=== PATIENT | male | born 1965 | race American Indian/Alaskan Native ===

== ENCOUNTER → 2016-07-12 | Emergency (ER) | payer MEDICARE ==
[2016-07-13 00:43] VITALS: BP 100/62
[2016-07-13 11:00] LABS: Urine Drugs of Abuse Note Disclamer
[2016-07-13 11:12] LABS: Bilirubin,Urine NEG (Negative); Blood,Urine MOD (Negative); Ketones,Urine NEG (Negative); Leukocyte Esterase,Urine NEG (Negative); Mucus,Urine FEW /HPF; Nitrite,Urine NEG (Negative); WBC,Urine < 1.0 /HPF (0.0-6.0)
== END ==
LOC: ED 22:44 → EEVIPCON 22:44 → ED 07-13 01:05
DX: R07.9 Chest pain, unspecified (principal); R10.9 Unspecified abdominal pain; Z53.21 Procedure and treatment not carried out due to patient leaving prior to being seen by health care provider
CPT/HCPCS: 80307; 81001; 93005; 93010

== ENCOUNTER 2016-07-13 08:05 | Emergency (ER) | payer MEDICARE ==
[2016-07-13 08:19] VITALS: BP 177/98
[2016-07-13 09:08] LABS: Anion Gap 15 mmol/L; BUN/Creatinine Ratio 6.66; Blood Urea Nitrogen 6 mg/dL (9-20); Calcium 8.6 mg/dL (8.4-10.2); Carbon Dioxide 25 mmol/L (22-30); Chloride 93.2 mmol/L (98-107); Glucose 98 mg/dL (75-100); Potassium 3.6 mmol/L (3.6-5.0); Sodium 130 mmol/L (137-145)
[2016-07-13 09:12] LABS: Basophils % (Auto) 0.8 % (0.0-1.8); Eosinophils % (Auto) 1.1 % (0.0-4.3); Hematocrit 34.9 % (35.5-45.6); Hemoglobin 11.2 gm/dl (11.8-15.2); Mean Corpuscular HGB Conc 32 % (32-34); Mean Corpuscular Volume 78 fl (84-94); Red Blood Count 4.47 M/mm3 (3.65-5.03); Red Cell Distribution Width 17.3 % (13.2-15.2); White Blood Count 4.9 K/mm3 (4.5-11.0)
[2016-07-13 09:16] LABS: Mean Corpuscular Hemoglobin 25 pg (28-32)
[2016-07-13 09:17] LABS: Platelet Count 45 K/mm3 (140-440)
== END 2016-07-13 08:36 | disposition left against medical advice (07) ==
LOC: ED 08:05
DX: F10.129 Alcohol abuse with intoxication, unspecified (principal); Z53.21 Procedure and treatment not carried out due to patient leaving prior to being seen by health care provider
CPT/HCPCS: 36415; 80048; 85025; G0480; 80320

== ENCOUNTER 2016-07-14 04:45 | Emergency (ER) | payer MEDICARE ==
[2016-07-14 05:52] LABS: Basophils % (Auto) 1.3 % (0.0-1.8); Eosinophils % (Auto) 2.3 % (0.0-4.3); Hematocrit 32.6 % (35.5-45.6); Hemoglobin 10.6 gm/dl (11.8-15.2); Mean Corpuscular HGB Conc 33 % (32-34); Mean Corpuscular Volume 78 fl (84-94); Red Blood Count 4.21 M/mm3 (3.65-5.03); Red Cell Distribution Width 17.1 % (13.2-15.2); White Blood Count 3.9 K/mm3 (4.5-11.0)
[2016-07-14 05:59] LABS: Mean Corpuscular Hemoglobin 25 pg (28-32); Platelet Count 57 K/mm3 (140-440)
[2016-07-14 06:12] LABS: Anion Gap 17 mmol/L; BUN/Creatinine Ratio 7.77; Blood Urea Nitrogen 7 mg/dL (9-20); Calcium 8.1 mg/dL (8.4-10.2); Carbon Dioxide 22 mmol/L (22-30); Chloride 100.6 mmol/L (98-107); Glucose 103 mg/dL (75-100); Lipase 143 units/L (13-60); Magnesium 1.7 mg/dL (1.7-2.3); Potassium 3.7 mmol/L (3.6-5.0); Sodium 136 mmol/L (137-145)
[2016-07-14 07:06] LABS: Urine Drugs of Abuse Note Disclamer
[2016-07-14 07:26] LABS: Bilirubin,Urine NEG (Negative); Blood,Urine MOD (Negative); Ketones,Urine NEG (Negative); Leukocyte Esterase,Urine NEG (Negative); Mucus,Urine FEW /HPF; Nitrite,Urine NEG (Negative); Protein,Urine <15 mg/dL mg/dL (Negative); Urobilinogen,Urine < 2.0 mg/dL (<2.0); WBC,Urine < 1.0 /HPF (0.0-6.0)
[2016-07-14 08:51] VITALS: BP 155/103
--- NOTE | 2016-07-14 19:15 | ED Elopement Review ---
ED Pt Elopement review - Results review Lab results: Laboratory Tests 07/14/16 07/14/16 07/14/16 05:44 05:44 05:44 WBC 3.9 L RBC 4.21 Hgb 10.6 L Hct 32.6 L MCV 78 L MCH 25 L MCHC 33 RDW 17.1 H Plt Count 57 L Lymph % (Auto) 48.3 H [place] % (Auto) 10.7 H Eos % (Auto) 2.3 Baso % (Auto) 1.3 Lymph # 1.9 [place] # 0.4 Eos # 0.1 Baso # 0.1 Seg Neutrophils % 37.4 L Seg Neutrophils # 1.4 L Sodium 136 L Potassium 3.7 Chloride 100.6 Carbon Dioxide 22 Anion Gap 17 BUN 7 L Creatinine 0.9 Estimated GFR > 60 BUN/Creatinine Ratio 7.77 Glucose 103 H Calcium 8.1 L Magnesium 1.7 Lipase 143 H Urine Color Urine Turbidity Urine pH Ur Specific [place] Urine Protein Urine Glucose (UA) Urine Ketones Urine Blood Urine Nitrite Urine Bilirubin Urine Urobilinogen Ur Leukocyte Esterase Urine WBC (Auto) Urine RBC (Auto) U Epithel Cells (Auto) Hyaline Casts Urine Mucus Urine Opiates Screen Urine Methadone Screen Ur Barbiturates Screen Ur Phencyclidine Scrn Ur Amphetamines Screen U Benzodiazepines Scrn Urine Cocaine Screen U Marijuana (THC) Screen Drugs of Abuse Note Plasma/Serum Alcohol 0.23 H 07/14/16 07/14/16 06:28 06:28 WBC RBC Hgb Hct MCV MCH MCHC RDW Plt Count Lymph % (Auto) [place] % (Auto) Eos % (Auto) Baso % (Auto) Lymph # [place] # Eos # Baso # Seg Neutrophils % Seg Neutrophils # Sodium Potassium Chloride Carbon Dioxide Anion Gap BUN Creatinine Estimated GFR BUN/Creatinine Ratio Glucose Calcium Magnesium Lipase Urine Color Yellow Urine Turbidity Clear Urine pH 5.0 Ur Specific [place] 1.011 Urine Protein <15 mg/dl Urine Glucose (UA) Neg Urine Ketones Neg Urine Blood Mod Urine Nitrite Neg Urine Bilirubin Neg Urine Urobilinogen < 2.0 Ur Leukocyte Esterase Neg Urine WBC (Auto) < 1.0 Urine RBC (Auto) 1.0 U Epithel Cells (Auto) < 1.0 Hyaline Casts 1 Urine Mucus Few Urine Opiates Screen Presumptive negative Urine Methadone Screen Presumptive negative Ur Barbiturates Screen Presumptive negative Ur Phencyclidine Scrn Presumptive negative Ur Amphetamines Screen Presumptive negative U Benzodiazepines Scrn Presumptive negative Urine Cocaine Screen Presumptive positive U Marijuana (THC) Screen Presumptive negative Drugs of Abuse Note Disclamer Plasma/Serum Alcohol - Call Back decision Pt Call Back Decision: Pt to F/U with PMD (patient has pancreatitis)
== END 2016-07-14 23:26 | disposition left against medical advice (07) ==
LOC: ED 04:45
DX: F10.129 Alcohol abuse with intoxication, unspecified (principal); Z53.21 Procedure and treatment not carried out due to patient leaving prior to being seen by health care provider
CPT/HCPCS: 36415; 80048; 80307; 81001; 83690; 83735; 85025; G0480; 80320

== ENCOUNTER 2016-07-14 14:23 | Emergency (ER) | payer MEDICARE | END 2016-07-14 14:24 | disposition left against medical advice (07) | LOC: ED 14:23 | DX: F29 Unspecified psychosis not due to a substance or known physiological condition (principal); Z53.21 Procedure and treatment not carried out due to patient leaving prior to being seen by health care provider ==

== ENCOUNTER 2016-07-24 05:05 | Emergency (ER) | payer MEDICARE ==
[2016-07-24 05:22] VITALS: BP 134/68
[2016-07-24 05:37] LABS: Basophils % (Auto) 1.3 % (0.0-1.8); Eosinophils % (Auto) 1.7 % (0.0-4.3); Hematocrit 37.6 % (35.5-45.6); Hemoglobin 12.1 gm/dl (11.8-15.2); Mean Corpuscular HGB Conc 32 % (32-34); Mean Corpuscular Hemoglobin 25 pg (28-32); Mean Corpuscular Volume 78 fl (84-94); Platelet Count 68 K/mm3 (140-440); Red Blood Count 4.79 M/mm3 (3.65-5.03); Red Cell Distribution Width 17.9 % (13.2-15.2); White Blood Count 3.7 K/mm3 (4.5-11.0)
[2016-07-24 05:46] LABS: INR 0.96 (0.87-1.13)
[2016-07-24 05:47] LABS: Partial Thromboplastin Time 28.6 Sec. (24.2-36.6)
[2016-07-24 06:03] LABS: Alanine Aminotransferase 71 units/L (7-56); Albumin/Globulin Ratio 0.5 %; Alkaline Phosphatase 363 units/L (35-129); Anion Gap 18 mmol/L; BUN/Creatinine Ratio 4.44; Bilirubin,Total 0.6 mg/dL (0.1-1.2); Blood Urea Nitrogen 4 mg/dL (9-20); Calcium 8.2 mg/dL (8.4-10.2); Carbon Dioxide 22 mmol/L (22-30); Chloride 102.7 mmol/L (98-107); Glucose 88 mg/dL (75-100); Lipase 106 units/L (13-60); Sodium 139 mmol/L (137-145)
--- NOTE | 2016-07-27 01:28 | ED Elopement Review ---
ED Pt Elopement review - Results review Lab results: Laboratory Tests 07/24/16 07/24/16 07/24/16 05:26 05:26 05:26 WBC 3.7 L RBC 4.79 Hgb 12.1 Hct 37.6 MCV 78 L MCH 25 L MCHC 32 RDW 17.9 H Plt Count 68 L Lymph % (Auto) 27.8 [place] % (Auto) 7.8 H Eos % (Auto) 1.7 Baso % (Auto) 1.3 Lymph # 1.0 L [place] # 0.3 Eos # 0.1 Baso # 0.0 Seg Neutrophils % 61.4 Seg Neutrophils # 2.2 PT 12.7 INR 0.96 APTT 28.6 Sodium Potassium Chloride Carbon Dioxide Anion Gap BUN Creatinine Estimated GFR BUN/Creatinine Ratio Glucose Calcium Total Bilirubin AST ALT Alkaline Phosphatase Troponin T < 0.010 Total Protein Albumin Albumin/Globulin Ratio Lipase Plasma/Serum Alcohol 07/24/16 07/24/16 05:26 05:26 WBC RBC Hgb Hct MCV MCH MCHC RDW Plt Count Lymph % (Auto) [place] % (Auto) Eos % (Auto) Baso % (Auto) Lymph # [place] # Eos # Baso # Seg Neutrophils % Seg Neutrophils # PT INR APTT Sodium 139 Potassium 4.0 Chloride 102.7 Carbon Dioxide 22 Anion Gap 18 BUN 4 L Creatinine 0.9 Estimated GFR > 60 BUN/Creatinine Ratio 4.44 Glucose 88 Calcium 8.2 L Total Bilirubin 0.6 AST 129 H ALT 71 H Alkaline Phosphatase 363 H Troponin T Total Protein 9.0 H Albumin 3.0 L Albumin/Globulin Ratio 0.5 Lipase 106 H Plasma/Serum Alcohol 0.27 H - Call Back decision Pt Call Back Decision: Pt to F/U with PMD (chest pain will likely require further evaluation)
== END 2016-07-24 05:30 | disposition left against medical advice (07) ==
LOC: ED 05:05
DX: R07.9 Chest pain, unspecified (principal); F17.200 Nicotine dependence, unspecified, uncomplicated; F12.90 Cannabis use, unspecified, uncomplicated; Z88.2 Allergy status to sulfonamides; Z88.8 Allergy status to other drugs, medicaments and biological substances; Z53.21 Procedure and treatment not carried out due to patient leaving prior to being seen by health care provider
CPT/HCPCS: 36415; 80053; 83690; 84484; 85025; 85610; 85730; 93005; 93010; G0480; 80320

== ENCOUNTER 2016-08-10 13:27 | Inpatient (IN) | payer MEDICARE ==
[2016-08-10 14:34] LABS: Anion Gap 21 mmol/L; BUN/Creatinine Ratio 7.77; Blood Urea Nitrogen 7 mg/dL (9-20); Calcium 8.9 mg/dL (8.4-10.2); Carbon Dioxide 19 mmol/L (22-30); Chloride 97.8 mmol/L (98-107); Glucose 87 mg/dL (75-100); Potassium 4.5 mmol/L (3.6-5.0); Sodium 133 mmol/L (137-145)
[2016-08-10 14:39] LABS: Basophils % (Auto) 0.6 % (0.0-1.8); Hematocrit 37.3 % (35.5-45.6); Hemoglobin 12.1 gm/dl (11.8-15.2); Mean Corpuscular HGB Conc 32 % (32-34); Mean Corpuscular Volume 79 fl (84-94); Red Blood Count 4.74 M/mm3 (3.65-5.03); Red Cell Distribution Width 17.5 % (13.2-15.2); White Blood Count 6.6 K/mm3 (4.5-11.0)
[2016-08-10 14:46] LABS: Mean Corpuscular Hemoglobin 26 pg (28-32); Platelet Count 51 K/mm3 (140-440)
[2016-08-10] MEDS ORDERED: ATIVAN IV ONE (14:55)
--- NOTE | 2016-08-10 15:01 | Emergency Department Report ---
HPI - General Chief Complaint: Nausea/Vomiting/Diarrhea Time Seen by Provider: 08/10/16 14:40 - HPI HPI: Room 24 The patient is a 50-year-old male presenting with a chief complaint of desire for "detox from alcohol." Patient states she came to the hospital because he wants detox from alcohol. Patient was diagnosed with a past 2 weeks his had nausea vomiting diarrhea. Patient admits to epigastric abdominal pain which began this morning. Patient states she consumes approximately one sixpack of beer daily and his last consumption occurred this morning. Location: [see above] Duration: 2 weeks Quality: Pain Severity: Moderate Modifying factors: [see above] Context: [see above] Mode of transportation: [not driving] ED Past Medical Hx - Past Medical History Hx Hypertension: Yes Hx HIV: Yes - Surgical History Additional Surgical History: tracheostomy- secondary to "throat infection/couldn 't breathe" - Family History Family history: no significant - Social History Smoking Status: Current Every Day Smoker (one pack per day) Substance Use Type: None (denies illicit drug use), Alcohol (sixpack of beer daily) - Medications Home Medications: Home Medications Medication Instructions Recorded Confirmed Last Taken Type Emtricitabin/Tenofovir [TRUVADA 1 tab PO QDAY 10/01/13 06/05/15 3 Days Ago History 200-300 mg] Lisinopril [Zestril TAB] 20 mg PO QDAY 10/01/13 06/05/15 3 Weeks Ago History Lopinavir/Ritonavir [Kaletra 1 each PO BID 10/01/13 06/05/15 3 Weeks Ago History 200-50 mg] Mirtazapine [Remeron] 45 mg PO QHS 10/01/13 06/05/15 3 Weeks Ago History Quetiapine Fumarate [SEROquel XR] 400 mg PO QDAY 10/01/13 06/05/15 3 Weeks Ago History Aspirin [Aspirin TAB] 325 mg PO QDAY #30 tablet 10/07/13 06/05/15 3 Weeks Ago Rx Clopidogrel [Plavix] 75 mg PO QDAY #30 tablet 10/07/13 06/05/15 3 Weeks Ago Rx Metoprolol [Lopressor TAB] 12.5 mg PO BID #60 tablet 10/07/13 06/05/15 3 Weeks Ago Rx Nitroglycerin [Nitrostat] 0.4 mg SL .Q5MIN PRN #90 tab 10/07/13 06/05/15 3 Weeks Ago Rx Pravastatin Sodium [Pravastatin] 10 mg PO QHS #30 tablet 10/07/13 06/05/15 3 Weeks Ago Rx HYDROcodone/APAP 10-325 [[place] 1 each PO Q6HR PRN #16 tablet 04/17/14 06/05/15 3 Days Ago Rx 10-325 mg TAB] Ondansetron [Zofran Odt] 4 mg SL Q6H PRN #8 tab.rapdis 04/17/14 06/05/15 3 Weeks Ago Rx ED Review of Systems ROS: Stated complaint: DEHYDRATION Other details as noted in HPI Comment: All other systems reviewed and negative Constitutional: denies: chills, fever Eyes: denies: eye pain, eye discharge, vision change ENT: denies: ear pain, throat pain Respiratory: denies: cough, shortness of breath, wheezing Cardiovascular: denies: palpitations Endocrine: no symptoms reported Gastrointestinal: abdominal pain, nausea, vomiting, diarrhea Genitourinary: denies: urgency, dysuria Musculoskeletal: denies: back pain, joint swelling, arthralgia Skin: denies: rash, lesions Neurological: denies: headache, weakness, paresthesias Psychiatric: denies: anxiety, depression Hematological/Lymphatic: denies: easy bleeding, easy bruising Physical Exam - Physical Exam Vital Signs: Vital Signs 08/10/16 13:47 Temperature 99.1 F Pulse Rate 118 H Respiratory 20 Rate Blood Pressure 149/85 O2 Sat by Pulse 99 Oximetry Physical Exam: GENERAL: The patient is well-developed male lying on stretcher not appearing to be in acute distress HEENT: Normocephalic. Atraumatic. Extraocular motions are intact. Patient has moist mucous membranes. NECK: Supple. No meningitic signs are noted. Trachea midline CHEST/LUNGS: Clear to auscultation. There is no respiratory distress noted. HEART/CARDIOVASCULAR: Regular. There is tachycardia. There is no gallop rub or murmur. ABDOMEN: Abdomen is soft, with mild epigastric discomfort to palpation. Patient has normal bowel sounds. There is no abdominal distention. SKIN: There is no rash. There is no edema. There is no diaphoresis. NEURO: The patient is awake, alert, and oriented. The patient is cooperative. The patient has no focal neurologic deficits. The patient has normal speech. Cranial nerves II through XII grossly intact, no drift. Mild tremulousness noted throughout exam MUSCULOSKELETAL: There is no evidence of acute injury. ED Course Vital Signs 08/10/16 13:47 Temperature 99.1 F Pulse Rate 118 H Respiratory 20 Rate Blood Pressure 149/85 O2 Sat by Pulse 99 Oximetry - Reevaluation(s) Reevaluation #1: 08/10/16 16:23 Patient still exhibits tremulousness. Patient tachycardic at approximately 124 bpm. Will initiate CIWA protocol and admit the patient to the hospitalist ED Medical Decision Making - Lab Data Result diagrams: 08/10/16 14:03 08/10/16 14:03 Laboratory Tests 08/10/16 08/10/16 08/10/16 13:56 14:03 14:03 WBC 6.6 RBC 4.74 Hgb 12.1 Hct 37.3 MCV 79 L MCH 26 L MCHC 32 RDW 17.5 H Plt Count 51 L Lymph % (Auto) 9.4 L [place] % (Auto) 6.0 Eos % (Auto) 0.0 Baso % (Auto) 0.6 Lymph # 0.6 L [place] # 0.4 Eos # 0.0 Baso # 0.0 Seg Neutrophils % 84.0 H Seg Neutrophils # 5.6 PT INR APTT Sodium 133 L Potassium 4.5 Chloride 97.8 L Carbon Dioxide 19 L Anion Gap 21 BUN 7 L Creatinine 0.9 Estimated GFR > 60 BUN/Creatinine Ratio 7.77 Glucose 87 POC Glucose 74 Calcium 8.9 Total Bilirubin Direct Bilirubin Indirect Bilirubin AST ALT Alkaline Phosphatase Ammonia Total Creatine Kinase CK-MB (CK-2) CK-MB (CK-2) Rel Index Troponin T Total Protein Albumin Albumin/Globulin Ratio Amylase Lipase Plasma/Serum Alcohol 08/10/16 08/10/16 08/10/16 15:08 15:08 15:08 WBC RBC Hgb Hct MCV MCH MCHC RDW Plt Count Lymph % (Auto) [place] % (Auto) Eos % (Auto) Baso % (Auto) Lymph # [place] # Eos # Baso # Seg Neutrophils % Seg Neutrophils # PT 13.3 INR 1.02 APTT 29.8 Sodium Potassium Chloride Carbon Dioxide Anion Gap BUN Creatinine Estimated GFR BUN/Creatinine Ratio Glucose POC Glucose Calcium Total Bilirubin 1.1 Direct Bilirubin 0.4 H Indirect Bilirubin 0.7 AST 156 H ALT 95 H Alkaline Phosphatase 418 H Ammonia Total Creatine Kinase 134 CK-MB (CK-2) 1.8 CK-MB (CK-2) Rel Index 1.3 Troponin T < 0.010 Total Protein 9.2 H Albumin 3.3 L Albumin/Globulin Ratio 0.6 Amylase 234 H Lipase 57 Plasma/Serum Alcohol 08/10/16 08/10/16 15:08 15:08 WBC RBC Hgb Hct MCV MCH MCHC RDW Plt Count Lymph % (Auto) [place] % (Auto) Eos % (Auto) Baso % (Auto) Lymph # [place] # Eos # Baso # Seg Neutrophils % Seg Neutrophils # PT INR APTT Sodium Potassium Chloride Carbon Dioxide Anion Gap BUN Creatinine Estimated GFR BUN/Creatinine Ratio Glucose POC Glucose Calcium Total Bilirubin Direct Bilirubin Indirect Bilirubin AST ALT Alkaline Phosphatase Ammonia 59.0 Total Creatine Kinase CK-MB (CK-2) CK-MB (CK-2) Rel Index Troponin T Total Protein Albumin Albumin/Globulin Ratio Amylase Lipase Plasma/Serum Alcohol 0.04 - Differential Diagnosis alcohol withdrawal, pancreatitis, cryptosporidium, gastroenteritis Critical care attestation.: If time is entered above; I have spent that time in minutes in the direct care of this critically ill patient, excluding procedure time. ED Disposition Clinical Impression: Alcohol abuse, Alcohol withdrawal, Alcoholic hepatitis, Thrombocytopenia Disposition: OP ADMITTED IP TO THIS HOSP Is pt being admited?: Yes Does the pt Need Aspirin: Yes Condition: Fair Referrals: PRIMARY CARE, [Primary Care Provider] - 3-5 Days Time of Disposition: 16:26
[2016-08-10 15:42] LABS: INR 1.02 (0.87-1.13); Partial Thromboplastin Time 29.8 Sec. (24.2-36.6)
[2016-08-10 15:53] LABS: Albumin 3.3 g/dL (3.9-5); Albumin/Globulin Ratio 0.6 %; Bilirubin,Direct 0.4 mg/dL (0-0.2); Bilirubin,Indirect 0.7 mg/dL; Bilirubin,Total 1.1 mg/dL (0.1-1.2); Total Protein 9.2 g/dL (6.3-8.2)
[2016-08-10] MEDS ORDERED: VITAMIN B-1 100 MG, FOLVITE 1 MG, INFUVITE 10 ML, MAGNESIUM SULFATE 2 GM in NACL 0.9% 1... IV ONE (15:53)
[2016-08-10 15:59] LABS: Creatine Kinase MB 1.8 ng/mL (0.0-4.0)
[2016-08-10 16:00] LABS: Creatine Kinase 134 units/L (55-170); Lipase 57 units/L (13-60)
--- NOTE | 2016-08-10 16:40 | History and Physical Report ---
History of Present Illness Chief complaint: I feel shaky History of present illness: 50 YO Male with ETOH Abuse, HTN, HIV, Nicotine Dependence presents to ED for evaluation. Pt states that he wants to "detox from alcohol." Patient states he cant stop shaking. Pt states that he normally consumes a six pack of beer daily , and his last drink was this morning. Pt denies audio/visual hallucinations, fever, chills, CP, Palpitations, NVD, or recent ill contacts. Past History Past Medical History: HIV/AIDS, hypertension Past Surgical History: Other (tracheostomy) Social history: single, smoking Family history: no significant family history, other (reviewed) Medications and Allergies Allergies Allergy/AdvReac Type Severity Reaction Status Date / Time sulfamethoxazole AdvReac Swelling Verified 07/13/16 08:19 [From Bactrim] trimethoprim [From Bactrim] AdvReac Swelling Verified 07/13/16 08:19 Home Medications Medication Instructions Recorded Confirmed Last Taken Type Emtricitabin/Tenofovir [TRUVADA 1 tab PO QDAY 10/01/13 06/05/15 3 Days Ago History 200-300 mg] Lisinopril [Zestril TAB] 20 mg PO QDAY 10/01/13 06/05/15 3 Weeks Ago History Lopinavir/Ritonavir [[place] 1 each PO BID 10/01/13 06/05/15 3 Weeks Ago History 200-50 mg] Mirtazapine [Remeron] 45 mg PO QHS 10/01/13 06/05/15 3 Weeks Ago History Quetiapine Fumarate [SEROquel XR] 400 mg PO QDAY 10/01/13 06/05/15 3 Weeks Ago History Aspirin [Aspirin TAB] 325 mg PO QDAY #30 tablet 10/07/13 06/05/15 3 Weeks Ago Rx Clopidogrel [Plavix] 75 mg PO QDAY #30 tablet 10/07/13 06/05/15 3 Weeks Ago Rx Metoprolol [Lopressor TAB] 12.5 mg PO BID #60 tablet 10/07/13 06/05/15 3 Weeks Ago Rx Nitroglycerin [Nitrostat] 0.4 mg SL .Q5MIN PRN #90 tab 10/07/13 06/05/15 3 Weeks Ago Rx Pravastatin Sodium [Pravastatin] 10 mg PO QHS #30 tablet 10/07/13 06/05/15 3 Weeks Ago Rx HYDROcodone/APAP 10-325 [[place] 1 each PO Q6HR PRN #16 tablet 04/17/14 06/05/15 3 Days Ago Rx 10-325 mg TAB] Ondansetron [Zofran Odt] 4 mg SL Q6H PRN #8 tab.rapdis 04/17/14 06/05/15 3 Weeks Ago Rx Active Meds: Active Medications Thiamine HCl 100 mg/ Folic Acid 1 mg/ Multivitamins/Minerals 10 ml/ Magnesium Sulfate 2 gm/ Sodium Chloride 1,015.2 mls @ 250 mls/hr IV ONCE.ED ONE Stop: 08/10/16 19:56 Last Admin: 08/10/16 15:42 Dose: 250 mls/hr Lorazepam (Ativan) 4 mg IV Q15MIN PRN PRN Reason: CIWA-Ar >25 Lorazepam (Ativan) 4 mg IV Q1HR PRN PRN Reason: CIWA-Ar 16-25 Lorazepam (Ativan) 2 mg IV Q1HR PRN PRN Reason: CIWA-Ar 8-15 Review of Systems All systems: negative Constitutional: other (shaky feeling) Exam - Constitutional Vitals: Temp Pulse Resp BP Pulse Ox 99.1 F 105 H 16 174/111 95 08/10/16 13:47 08/10/16 16:34 08/10/16 16:34 08/10/16 16:34 08/10/16 16:34 General appearance: Present: no acute distress, well-nourished - EENT Eyes: Present: PERRL ENT: hearing intact, clear oral mucosa - Neck Neck: Present: supple, normal ROM - Respiratory Respiratory effort: normal Respiratory: bilateral: CTA - Cardiovascular Heart Sounds: Present: S1 & S2. Absent: rub, click - Extremities Extremities: pulses symmetrical, No edema Peripheral Pulses: within normal limits - Abdominal General gastrointestinal: Present: soft, non-tender, non-distended, normal bowel sounds Male genitourinary: Present: normal - Integumentary Integumentary: Present: clear, warm, dry - Musculoskeletal Musculoskeletal: generalized weakness - Psychiatric Psychiatric: appropriate mood/affect, intact judgment & insight, agitated - Neurologic Neurologic: CNII-XII intact, moves all extremities Results - Labs CBC & Chem 7: 08/10/16 14:03 08/10/16 14:03 Labs: Abnormal lab results 08/10/16 08/10/16 08/10/16 Range/Units 14:03 14:03 15:08 MCV 79 L (84-94) fl MCH 26 L (28-32) pg RDW 17.5 H (13.2-15.2) % Plt Count 51 L (140-440) K/mm3 Lymph % (Auto) 9.4 L (13.4-35.0) % Lymph # 0.6 L (1.2-5.4) K/mm3 Seg Neutrophils % 84.0 H (40.0-70.0) % Sodium 133 L (137-145) mmol/L Chloride 97.8 L (98-107) mmol/L Carbon Dioxide 19 L (22-30) mmol/L BUN 7 L (9-20) mg/dL Direct Bilirubin 0.4 H (0-0.2) mg/dL AST 156 H (5-40) units/L ALT 95 H (7-56) units/L Alkaline Phosphatase 418 H (35-129) units/L Total Protein 9.2 H (6.3-8.2) g/dL Albumin 3.3 L (3.9-5) g/dL Amylase 234 H (27-131) units/L Assessment and Plan - Patient Problems (1) Metabolic acidosis Current Visit: Yes Status: Acute (2) Alcohol withdrawal Current Visit: Yes Status: Acute Qualifiers: Complication of substance-induced condition: C (3) DVT prophylaxis Current Visit: No Status: Acute (4) HIV (human immunodeficiency virus infection) Current Visit: No Status: Chronic
[2016-08-10] MEDS ORDERED: ZOFRAN IV PRN (16:41)
[2016-08-10] MEDS ORDERED: DUONEB 0.5 MG-3 MG/3 ML SOLN IH PRN (16:41)
[2016-08-10] MEDS ORDERED: DULCOLAX PR PRN (16:41)
[2016-08-10] MEDS ORDERED: MILK OF MAGNESIA PO PRN (16:41)
[2016-08-10] MEDS ORDERED: TYLENOL PO PRN (16:41)
[2016-08-10] MEDS ORDERED: NITROSTAT SL PRN (16:45)
[2016-08-10] MEDS ORDERED: PROVENTIL IH PRN (16:53)
[2016-08-10] MEDS ORDERED: THERAGRAN Tab PO ONE ×2 (17:00→19:35)
[2016-08-10] MEDS ORDERED: VITAMIN B-1 PO ONE (18:00)
[2016-08-10] MEDS ORDERED: FOLVITE ONE (19:34)
[2016-08-10] MEDS ORDERED: VITAMIN B-1 ONE (19:35)
[2016-08-10] MEDS ORDERED: ATIVAN ONE (19:36)
[2016-08-10 19:47] LABS: Bilirubin,Urine NEG (Negative); Blood,Urine MOD (Negative); Ketones,Urine TR mg/dL (Negative); Leukocyte Esterase,Urine NEG (Negative); Nitrite,Urine NEG (Negative); Protein,Urine <15 mg/dL mg/dL (Negative); Urobilinogen,Urine < 2.0 mg/dL (<2.0)
[2016-08-10] MEDS: FOLVITE PO SCH (19:47)
[2016-08-10] MEDS: ATIVAN IV PRN ×3 (19:48→23:30)
[2016-08-10] MEDS: LOPRESSOR PO SCH (21:20)
[2016-08-10] MEDS: ZOCOR PO SCH (21:21)
[2016-08-10] MEDS: REMERON PO SCH (21:48)
[2016-08-10] MEDS: KALETRA PO SCH (21:48)
[2016-08-10] MEDS ORDERED: NON-FORMULARY (Mirtazapine [Remeron] 45 MG) PO SCH (22:00)
[2016-08-10] MEDS ORDERED: NON-FORMULARY (Pravastatin Sodium [Pravastatin] 10 MG) PO SCH (22:00)
[2016-08-11] MEDS: ATIVAN IV PRN ×5 (00:31→23:43)
[2016-08-11] MEDS ORDERED: EMTRIVA PO SCH (10:00)
[2016-08-11] MEDS ORDERED: NON-FORMULARY (Emtricitabin/Tenofovir [Truvada 200-300 Mg] 1 TAB) PO SCH (10:00)
[2016-08-11] MEDS ORDERED: NON-FORMULARY (Quetiapine Fumarate [Seroquel Xr] 400 MG) PO SCH (10:00)
[2016-08-11] MEDS: FOLVITE PO SCH ×2 (13:24→16:52)
[2016-08-11] MEDS: ASPIRIN PO SCH ×2 (13:24→14:05)
[2016-08-11] MEDS: KALETRA PO SCH ×2 (13:24→21:56)
[2016-08-11] MEDS: PLAVIX PO SCH ×2 (13:24→16:52)
[2016-08-11] MEDS: ZESTRIL PO SCH ×2 (13:25→14:01)
[2016-08-11] MEDS: EMTRIVA PO SCH ×2 (13:25→16:54)
[2016-08-11] MEDS: VIREAD PO SCH ×2 (13:25→16:54)
[2016-08-11] MEDS: LOPRESSOR PO SCH ×3 (13:26→21:54)
--- NOTE | 2016-08-11 13:39 | Progress Note ---
Assessment and Plan Assessment and plan: 50 YO Male with ETOH Abuse, HTN, HIV, Nicotine Dependence presents to ED for evaluation. Pt states that he wants to "detox from alcohol." He presented with etoh withdrawal 1. Alcohol withdrawal Continue serial protocol, continue IV fluids, continue thiamine and folate 2. Metabolic encephalopathy Continue restraints, continue supportive care, continue IV fluids 3. History of chronic HIV continue retrovirals History Interval history: Patient continues to be agitated and confused Hospitalist Physical - Physical exam Narrative exam: General: Confused and agitated HEENT: MMM, EOMI cardiac: S1-S2 heard lungs: clear to auscultation, abdomen: soft, nontender, nondistended bowel sounds positive extremities: no edema clubbing or cyanosis Skin: no rash or lesion Neuro: Moves all extremities, obese on commands, does not be most commands, confused and agitated - Constitutional Vitals: Temp Pulse Resp BP Pulse Ox 96.7 F L 98 H 20 150/97 100 08/11/16 08:00 08/11/16 08:00 08/11/16 08:00 08/11/16 08:00 08/11/16 10:00 General appearance: Present: no acute distress, well-nourished Results - Labs CBC & Chem 7: 08/10/16 14:03 08/11/16 14:41 Labs: Laboratory Last Values WBC 6.6 K/mm3 (4.5-11.0) 08/10/16 14:03 RBC 4.74 M/mm3 (3.65-5.03) 08/10/16 14:03 Hgb 12.1 gm/dl (11.8-15.2) 08/10/16 14:03 Hct 37.3 % (35.5-45.6) 08/10/16 14:03 MCV 79 fl (84-94) L 08/10/16 14:03 MCH 26 pg (28-32) L 08/10/16 14:03 MCHC 32 % (32-34) 08/10/16 14:03 RDW 17.5 % (13.2-15.2) H 08/10/16 14:03 Plt Count 51 K/mm3 (140-440) L 08/10/16 14:03 Lymph % (Auto) 9.4 % (13.4-35.0) L 08/10/16 14:03 [place] % (Auto) 6.0 % (0.0-7.3) 08/10/16 14:03 Eos % (Auto) 0.0 % (0.0-4.3) 08/10/16 14:03 Baso % (Auto) 0.6 % (0.0-1.8) 08/10/16 14:03 Lymph # 0.6 K/mm3 (1.2-5.4) L 08/10/16 14:03 [place] # 0.4 K/mm3 (0.0-0.8) 08/10/16 14:03 Eos # 0.0 K/mm3 (0.0-0.4) 08/10/16 14:03 Baso # 0.0 K/mm3 (0.0-0.1) 08/10/16 14:03 Seg Neutrophils % 84.0 % (40.0-70.0) H 08/10/16 14:03 Seg Neutrophils # 5.6 K/mm3 (1.8-7.7) 08/10/16 14:03 PT 13.3 Sec. (12.2-14.9) 08/10/16 15:08 INR 1.02 (0.87-1.13) 08/10/16 15:08 APTT 29.8 Sec. (24.2-36.6) 08/10/16 15:08 Sodium 133 mmol/L (137-145) L 08/10/16 14:03 Potassium 4.5 mmol/L (3.6-5.0) 08/10/16 14:03 Chloride 97.8 mmol/L (98-107) L 08/10/16 14:03 Carbon Dioxide 19 mmol/L (22-30) L 08/10/16 14:03 Anion Gap 21 mmol/L 08/10/16 14:03 BUN 7 mg/dL (9-20) L 08/10/16 14:03 Creatinine 0.9 mg/dL (0.8-1.5) 08/10/16 14:03 Estimated GFR > 60 ml/min 08/10/16 14:03 BUN/Creatinine Ratio 7.77 % 08/10/16 14:03 Glucose 87 mg/dL (75-100) 08/10/16 14:03 POC Glucose 74 (70-105) 08/10/16 13:56 Calcium 8.9 mg/dL (8.4-10.2) 08/10/16 14:03 Total Bilirubin 1.1 mg/dL (0.1-1.2) 08/10/16 15:08 Direct Bilirubin 0.4 mg/dL (0-0.2) H 08/10/16 15:08 Indirect Bilirubin 0.7 mg/dL 08/10/16 15:08 AST 156 units/L (5-40) H 08/10/16 15:08 ALT 95 units/L (7-56) H 08/10/16 15:08 Alkaline Phosphatase 418 units/L (35-129) H 08/10/16 15:08 Ammonia 59.0 umol/L (25-60) 08/10/16 15:08 Total Creatine Kinase 134 units/L (55-170) 08/10/16 15:08 CK-MB (CK-2) 1.8 ng/mL (0.0-4.0) 08/10/16 15:08 CK-MB (CK-2) Rel Index 1.3 (0-4) 08/10/16 15:08 Troponin T < 0.010 ng/mL (0.00-0.029) 08/10/16 15:08 Total Protein 9.2 g/dL (6.3-8.2) H 08/10/16 15:08 Albumin 3.3 g/dL (3.9-5) L 08/10/16 15:08 Albumin/Globulin Ratio 0.6 % 08/10/16 15:08 Amylase 234 units/L (27-131) H 08/10/16 15:08 Lipase 57 units/L (13-60) 08/10/16 15:08 Urine Color Yellow (Yellow) 08/10/16 19:15 Urine Turbidity Clear (Clear) 08/10/16 19:15 Urine pH 5.0 (5.0-7.0) 08/10/16 19:15 Ur Specific [place] 1.013 (1.003-1.030) 08/10/16 19:15 Urine Protein <15 mg/dl mg/dL (Negative) 08/10/16 19:15 Urine Glucose (UA) Neg mg/dL (Negative) 08/10/16 19:15 Urine Ketones Tr mg/dL (Negative) 08/10/16 19:15 Urine Blood Mod (Negative) 08/10/16 19:15 Urine Nitrite Neg (Negative) 08/10/16 19:15 Urine Bilirubin Neg (Negative) 08/10/16 19:15 Urine Urobilinogen < 2.0 mg/dL (<2.0) 08/10/16 19:15 Ur Leukocyte Esterase Neg (Negative) 08/10/16 19:15 Urine WBC (Auto) 1.0 /HPF (0.0-6.0) 08/10/16 19:15 Urine RBC (Auto) 1.0 /HPF (0.0-6.0) 08/10/16 19:15 Plasma/Serum Alcohol 0.04 gm% (0-0.07) 08/10/16 15:08
[2016-08-11] MEDS: D5/0.45NS 1,000 ML IV SCH (14:59)
[2016-08-11 15:37] LABS: Anion Gap 19 mmol/L; Blood Urea Nitrogen 6 mg/dL (9-20); Calcium 9.3 mg/dL (8.4-10.2); Carbon Dioxide 22 mmol/L (22-30); Chloride 96.9 mmol/L (98-107); Glucose 114 mg/dL (75-100); Magnesium 1.8 mg/dL (1.7-2.3); Potassium 3.8 mmol/L (3.6-5.0); Sodium 134 mmol/L (137-145)
[2016-08-11] MEDS: REMERON PO SCH (21:55)
[2016-08-11] MEDS: ZOCOR PO SCH (21:55)
--- NOTE | 2016-08-12 01:16 | Admit Criteria Form ---
Admission Criteria Documentation: ALCOHOL AND PSYCHOACTIVE SUBSTANCE WITHDRAWAL Clinical Indications for Inpatient Care (Place ' X' for any and all applicable criteria): Ongoing inpatient care may be indicated for substance withdrawal[B][C] with ANY ONE of the following(1)(2)(3)(4)(21): [ ]I. Delirium due to alcohol or sedative[D] withdrawal is present. [X ]II. Marked signs of withdrawal are present as indicated by ANY ONE of the following(15)(22)(23) [ X]a) Heart rate greater than 120 beats per minute is present. [ ]b) Severe vomiting is present (eg, precludes maintenance of oral hydration). [ ]c) Grossly visible tremor is present. [ ]d) Profuse perspiration is present. [ ]e) Temperature greater than 101 degrees F (38.3 degrees C) is present. [ ]f) Other signs of severe withdrawal are present (eg, Altered mental status ) [ ]g) Severe withdrawal identified by standardized assessment score[A] [ ]III. Signs of withdrawal that require continued inpatient treatment as indicated by ANY ONE of the following(15)(22)(23): [ ]a) Inadequate response to pharmacotherapy (eg, benzodiazepines) [ ]b) Outpatient or lower level of care is not feasible or appropriate (eg, unavailable or inappropriate to patient condition or treatment history). [ ]IV. Withdrawal signs with high-risk indicator are present as manifested by ALL of the following[A](15)(22)(23) [ ]a) Signs of withdrawal are present as indicated by ANY ONE of the following: [ ]i. Tachycardia is present. [ ]ii. Nausea or vomiting is present. [ ]iii. Tremor is present. [ ]iv. Increased perspiration is present. [ ]v. Other signs of withdrawal are present. [ ]vi. Withdrawal identified by standardized assessment score [A] [ ]b) Elevated risk due to historical or comorbid factor is present as indicated by ANY ONE of the following: [ ]i. History of delirium due to withdrawal is present. [ ]ii. History of seizures due to withdrawal is present.[E] [ ]iii. Intrinsic seizure disorder (epilepsy) is present. [ ]iv. Patient is . [ ]v. Other significant medical history (eg, severe cardiac disease) is present, which is assessed to be at risk for destabilization due to withdrawal. [ ]V. Serious electrolyte abnormalities (eg, hyponatremia, hypokalemia, hypophosphatemia) requiring correction performable only in inpatient setting(6)(25) [ ]. Severe hypoglycemia requiring glucose infusions performable only in inpatient setting(6) [ ]VII. Drug toxicity or instability, such as Altered mental status, respiratory depression, or arrhythmias, that requires inpatient care [ ]VIII. Danger judged unmanageable at lower level of care because of ANY ONE of the following [ ]a) Danger to self [ ]b) Danger to others [ ]c) Grave disability (eg, inability to perform self-care necessary at lower level of care) The original [facility] Care Guidelines content created by [facility] Care Guidelines has been revised. The portions of the content which have been revised are identified through the use of italic text or in bold. [facility] Guidelines has neither reviewed nor approved the modified material. All other unmodified content is copyright [facility] Care Guidelines. Please see references footnoted in the original [facility] CareGuidelines edition 2016 Admission Criteria Met: Yes
[2016-08-12] MEDS: ATIVAN IV PRN ×2 (01:51→07:52)
[2016-08-12] MEDS: D5/0.45NS 1,000 ML IV SCH ×2 (07:36→21:40)
[2016-08-12] MEDS: FOLVITE PO SCH (10:05)
[2016-08-12] MEDS: VITAMIN B-1 PO SCH (10:05)
[2016-08-12] MEDS: ZESTRIL PO SCH (10:05)
[2016-08-12] MEDS: PLAVIX PO SCH (10:08)
[2016-08-12] MEDS: LOPRESSOR PO SCH ×2 (10:09→21:43)
[2016-08-12] MEDS: EMTRIVA PO SCH (10:10)
[2016-08-12] MEDS: KALETRA PO SCH ×2 (10:11→21:43)
[2016-08-12] MEDS: VIREAD PO SCH (10:11)
[2016-08-12] MEDS: ASPIRIN PO SCH (10:18)
[2016-08-12] MEDS ORDERED: NACL 0.9% 1000 ML 1,000 ML IV ONE (15:13)
[2016-08-12] MEDS ORDERED: NACL 0.9% 1000 ML 1,000 ML ONE (15:13)
[2016-08-12] MEDS: REMERON PO SCH (21:41)
[2016-08-12] MEDS: ZOCOR PO SCH (21:43)
[2016-08-13] MEDS: ATIVAN IV PRN ×6 (05:22→23:43)
--- NOTE | 2016-08-13 09:23 | Query- General ---
Deysi Bo Date:_08/13/16 Traffic Superintendent/CDS:[place] Phone#:[phone] Exercise your independent professional judgment when responding to this query. Questions asked do not imply a particular answer is desired or expected. We greatly appreciate your clarification on this issue. Clinical Documentation States: 50 YO Male with ETOH Abuse, HTN, HIV, Nicotine Dependence presents to ED for evaluation. Pt states that he wants to "detox from alcohol." Patient states he cant stop shaking. Clinical Findings Show (include reference to source document): Past Medical History: HIV/AIDS, hypertension Given the above clinical scenario can you please provide an appropriate diagnosis based on your knowledge of the patient: PHYSICIAN RESPONSE: Present on Admission: [ x] Yes (Y) [ ] Clinically undeterminable (W) [ ]No(N) Please also document response in your Progress Notes and/or Discharge Summary and indicate if the condition was present on admission. PATD
[2016-08-13] MEDS: D5/0.45NS 1,000 ML IV SCH ×2 (15:58→23:44)
[2016-08-13] MEDS: EMTRIVA PO SCH (15:59)
[2016-08-13] MEDS: KALETRA PO SCH ×2 (15:59→21:35)
[2016-08-13] MEDS: PLAVIX PO SCH (16:00)
[2016-08-13] MEDS: ZESTRIL PO SCH (16:00)
[2016-08-13] MEDS: ASPIRIN PO SCH (16:00)
[2016-08-13] MEDS: VIREAD PO SCH (16:01)
[2016-08-13] MEDS: FOLVITE PO SCH (16:01)
[2016-08-13] MEDS: LOPRESSOR PO SCH ×2 (16:02→21:36)
[2016-08-13] MEDS: VITAMIN B-1 PO SCH (16:02)
--- NOTE | 2016-08-13 16:42 | Progress Note ---
Assessment and Plan Assessment and plan: 50 YO Male with ETOH Abuse, HTN, HIV, Nicotine Dependence presents to ED for evaluation. Pt states that he wants to "detox from alcohol." He presented with etoh withdrawal 1. Alcohol withdrawal Continue serial protocol, continue IV fluids, continue thiamine and folate 2. Metabolic encephalopathy Continue restraints, continue supportive care, continue IV fluids 3. History of chronic HIV continue retrovirals 4. Hypotension likely 2/2 dehydration, improved with IVF History Interval history: Patient continues to be agitated and confused Hospitalist Physical - Physical exam Narrative exam: General: Confused and agitated HEENT: MMM, EOMI cardiac: S1-S2 heard lungs: clear to auscultation, abdomen: soft, nontender, nondistended bowel sounds positive extremities: no edema clubbing or cyanosis Skin: no rash or lesion Neuro: Moves all extremities, obese on commands, does not be most commands, confused and agitated - Constitutional Vitals: Temp Pulse Resp BP Pulse Ox 97.7 F 91 H 20 135/83 100 08/12/16 20:00 08/13/16 08:00 08/13/16 08:00 08/13/16 08:00 08/12/16 17:40 General appearance: Present: no acute distress, well-nourished Results - Labs CBC & Chem 7: 08/10/16 14:03 08/11/16 14:41 Labs: Laboratory Last Values WBC 6.6 K/mm3 (4.5-11.0) 08/10/16 14:03 RBC 4.74 M/mm3 (3.65-5.03) 08/10/16 14:03 Hgb 12.1 gm/dl (11.8-15.2) 08/10/16 14:03 Hct 37.3 % (35.5-45.6) 08/10/16 14:03 MCV 79 fl (84-94) L 08/10/16 14:03 MCH 26 pg (28-32) L 08/10/16 14:03 MCHC 32 % (32-34) 08/10/16 14:03 RDW 17.5 % (13.2-15.2) H 08/10/16 14:03 Plt Count 51 K/mm3 (140-440) L 08/10/16 14:03 Lymph % (Auto) 9.4 % (13.4-35.0) L 08/10/16 14:03 [place] % (Auto) 6.0 % (0.0-7.3) 08/10/16 14:03 Eos % (Auto) 0.0 % (0.0-4.3) 08/10/16 14:03 Baso % (Auto) 0.6 % (0.0-1.8) 08/10/16 14:03 Lymph # 0.6 K/mm3 (1.2-5.4) L 08/10/16 14:03 [place] # 0.4 K/mm3 (0.0-0.8) 08/10/16 14:03 Eos # 0.0 K/mm3 (0.0-0.4) 08/10/16 14:03 Baso # 0.0 K/mm3 (0.0-0.1) 08/10/16 14:03 Seg Neutrophils % 84.0 % (40.0-70.0) H 08/10/16 14:03 Seg Neutrophils # 5.6 K/mm3 (1.8-7.7) 08/10/16 14:03 PT 13.3 Sec. (12.2-14.9) 08/10/16 15:08 INR 1.02 (0.87-1.13) 08/10/16 15:08 APTT 29.8 Sec. (24.2-36.6) 08/10/16 15:08 Sodium 134 mmol/L (137-145) L 08/11/16 14:41 Potassium 3.8 mmol/L (3.6-5.0) 08/11/16 14:41 Chloride 96.9 mmol/L (98-107) L 08/11/16 14:41 Carbon Dioxide 22 mmol/L (22-30) 08/11/16 14:41 Anion Gap 19 mmol/L 08/11/16 14:41 BUN 6 mg/dL (9-20) L 08/11/16 14:41 Creatinine 0.8 mg/dL (0.8-1.5) 08/11/16 14:41 Estimated GFR > 60 ml/min 08/11/16 14:41 BUN/Creatinine Ratio 7.50 % 08/11/16 14:41 Glucose 114 mg/dL (75-100) H 08/11/16 14:41 POC Glucose 74 (70-105) 08/10/16 13:56 Calcium 9.3 mg/dL (8.4-10.2) 08/11/16 14:41 Magnesium 1.8 mg/dL (1.7-2.3) 08/11/16 14:41 Total Bilirubin 1.1 mg/dL (0.1-1.2) 08/10/16 15:08 Direct Bilirubin 0.4 mg/dL (0-0.2) H 08/10/16 15:08 Indirect Bilirubin 0.7 mg/dL 08/10/16 15:08 AST 156 units/L (5-40) H 08/10/16 15:08 ALT 95 units/L (7-56) H 08/10/16 15:08 Alkaline Phosphatase 418 units/L (35-129) H 08/10/16 15:08 Ammonia 59.0 umol/L (25-60) 08/10/16 15:08 Total Creatine Kinase 134 units/L (55-170) 08/10/16 15:08 CK-MB (CK-2) 1.8 ng/mL (0.0-4.0) 08/10/16 15:08 CK-MB (CK-2) Rel Index 1.3 (0-4) 08/10/16 15:08 Troponin T < 0.010 ng/mL (0.00-0.029) 08/10/16 15:08 Total Protein 9.2 g/dL (6.3-8.2) H 08/10/16 15:08 Albumin 3.3 g/dL (3.9-5) L 08/10/16 15:08 Albumin/Globulin Ratio 0.6 % 08/10/16 15:08 Amylase 234 units/L (27-131) H 08/10/16 15:08 Lipase 57 units/L (13-60) 08/10/16 15:08 Urine Color Yellow (Yellow) 08/10/16 19:15 Urine Turbidity Clear (Clear) 08/10/16 19:15 Urine pH 5.0 (5.0-7.0) 08/10/16 19:15 Ur Specific [place] 1.013 (1.003-1.030) 08/10/16 19:15 Urine Protein <15 mg/dl mg/dL (Negative) 08/10/16 19:15 Urine Glucose (UA) Neg mg/dL (Negative) 08/10/16 19:15 Urine Ketones Tr mg/dL (Negative) 08/10/16 19:15 Urine Blood Mod (Negative) 08/10/16 19:15 Urine Nitrite Neg (Negative) 08/10/16 19:15 Urine Bilirubin Neg (Negative) 08/10/16 19:15 Urine Urobilinogen < 2.0 mg/dL (<2.0) 08/10/16 19:15 Ur Leukocyte Esterase Neg (Negative) 08/10/16 19:15 Urine WBC (Auto) 1.0 /HPF (0.0-6.0) 08/10/16 19:15 Urine RBC (Auto) 1.0 /HPF (0.0-6.0) 08/10/16 19:15 Plasma/Serum Alcohol 0.04 gm% (0-0.07) 08/10/16 15:08
[2016-08-13] MEDS ORDERED: LIBRIUM PO PRN (16:43)
[2016-08-13] MEDS: REMERON PO SCH (21:35)
[2016-08-13] MEDS: ZOCOR PO SCH (21:35)
[2016-08-14] MEDS ORDERED: APRESOLINE IV PRN ×2 (04:41→08:58)
[2016-08-14] MEDS ORDERED: ZESTRIL PO SCH (08:58)
[2016-08-14] MEDS: D5/0.45NS 1,000 ML IV SCH (11:04)
[2016-08-14] MEDS: ATIVAN IV PRN ×2 (11:07→21:47)
[2016-08-14] MEDS: ASPIRIN PO SCH (11:08)
[2016-08-14] MEDS: FOLVITE PO SCH (11:08)
[2016-08-14] MEDS: HCTZ PO SCH (11:09)
[2016-08-14] MEDS: EMTRIVA PO SCH (11:09)
[2016-08-14] MEDS: VITAMIN B-1 PO SCH (11:10)
[2016-08-14] MEDS: ZESTRIL PO SCH (11:10)
[2016-08-14] MEDS: LOPRESSOR PO SCH ×2 (11:11→21:34)
[2016-08-14] MEDS: PLAVIX PO SCH (11:11)
[2016-08-14] MEDS: KALETRA PO SCH ×2 (11:12→21:34)
[2016-08-14] MEDS: VIREAD PO SCH (11:12)
--- NOTE | 2016-08-14 15:39 | Consultation ---
History of Present Illness - Reason for Consult Consult date: 08/14/16 Reason for consult: Mental Health Evaluation Requesting physician: KIANNA POTTS - Chief Complaint Chief complaint: "Active Etoh Withdrawals" - History of Present Psychiatric Illness The patient is a 50-year-old AA male presenting with a chief complaint of ETHO Withdrawal. Today patient presents confused and currently in restraints. Patient mumbled words that I could not understand when I asked him questions. He is currently on the [facility] Protocol with Ativan. Per his assigned RN, he was given Ativan 4mg IV per the [place] at 1107 this morning. During my assessment patient was moving his arms and legs and responded to his name saying "yes." Moderate tremors was noted in his upper extremities. No gestures of SI/HI's and AVH's at this time. Medications and Allergies Allergies Allergy/AdvReac Type Severity Reaction Status Date / Time sulfamethoxazole AdvReac Swelling Verified 07/13/16 08:19 [From Bactrim] trimethoprim [From Bactrim] AdvReac Swelling Verified 07/13/16 08:19 Home Medications Medication Instructions Recorded Confirmed Last Taken Type Emtricitabin/Tenofovir [TRUVADA 1 tab PO QDAY 10/01/13 08/10/16 3 Days Ago History 200-300 mg] Lisinopril [Zestril TAB] 20 mg PO QDAY 10/01/13 08/10/16 3 Weeks Ago History Lopinavir/Ritonavir [Kaletra 1 each PO BID 10/01/13 08/10/16 3 Weeks Ago History 200-50 mg] Mirtazapine [Remeron] 45 mg PO QHS 10/01/13 08/10/16 3 Weeks Ago History Quetiapine Fumarate [SEROquel XR] 400 mg PO QDAY 10/01/13 08/10/16 3 Weeks Ago History Aspirin [Aspirin TAB] 325 mg PO QDAY #30 tablet 10/07/13 08/10/16 3 Weeks Ago Rx Clopidogrel [Plavix] 75 mg PO QDAY #30 tablet 10/07/13 08/10/16 3 Weeks Ago Rx Metoprolol [Lopressor TAB] 12.5 mg PO BID #60 tablet 10/07/13 08/10/16 3 Weeks Ago Rx Nitroglycerin [Nitrostat] 0.4 mg SL .Q5MIN PRN #90 tab 10/07/13 08/10/16 3 Weeks Ago Rx Pravastatin Sodium [Pravastatin] 10 mg PO QHS #30 tablet 10/07/13 08/10/16 3 Weeks Ago Rx HYDROcodone/APAP 10-325 [[place] 1 each PO Q6HR PRN #16 tablet 04/17/14 08/10/16 3 Days Ago Rx 10-325 mg TAB] Ondansetron [Zofran Odt] 4 mg SL Q6H PRN #8 tab.rapdis 04/17/14 08/10/16 3 Weeks Ago Rx Active Meds: Active Medications Acetaminophen (Tylenol) 650 mg PO Q4H PRN PRN Reason: Pain MILD(1-3)/Fever >100.5/GAMBINO Acetaminophen/Hydrocodone Bitart ([place] 10/325) 1 each PO Q6HR PRN PRN Reason: Pain Albuterol (Proventil) 2.5 mg IH Q4HRT PRN PRN Reason: Shortness Of Breath Aspirin (Aspirin) 325 mg PO QDAY [facility] Last Admin: 08/14/16 11:08 Dose: 325 mg Bisacodyl (Dulcolax) 10 mg [place] QDAY PRN PRN Reason: Constipation unrelieved by MOM Chlordiazepoxide HCl (Librium) 25 mg PO Q8H PRN PRN Reason: Anxiety Stop: 08/15/16 08:44 Chlordiazepoxide HCl (Librium) 10 mg PO QID [facility] Stop: 08/16/16 14:01 Chlordiazepoxide HCl (Librium) 5 mg PO QID [facility] Clopidogrel Bisulfate (Plavix) 75 mg PO QDAY [facility] Last Admin: 08/14/16 11:11 Dose: 75 mg Emtricitabine (Emtriva) 200 mg PO QDAY [facility] Last Admin: 08/14/16 11:09 Dose: 200 mg Folic Acid (Folvite) 1 mg PO QDAY [facility] Last Admin: 08/14/16 11:08 Dose: 1 mg Hydralazine HCl (Apresoline) 10 mg IV Q6HR PRN PRN Reason: Hypertension Hydrochlorothiazide (Hctz) 25 mg PO QDAY [facility] Last Admin: 08/14/16 11:09 Dose: 25 mg Dextrose/Sodium Chloride (D5/0.45ns) 1,000 mls @ 125 mls/hr IV DIRECT [facility] Last Admin: 08/14/16 11:04 Dose: 75 mls/hr Lisinopril (Zestril) 40 mg PO QDAY [facility] Last Admin: 08/14/16 11:10 Dose: 40 mg Lopinavir/Ritonavir (Kal[place] 200-50 Mg) 1 each PO BID [facility] Last Admin: 08/14/16 11:12 Dose: 1 each Lorazepam (Ativan) 4 mg IV Q15MIN PRN PRN Reason: CIWA-Ar >25 Last Admin: 08/13/16 20:09 Dose: 4 mg Lorazepam (Ativan) 4 mg IV Q1HR PRN PRN Reason: CIWA-Ar 16-25 Last Admin: 08/14/16 11:07 Dose: 4 mg Lorazepam (Ativan) 2 mg IV Q1HR PRN PRN Reason: CIWA-Ar 8-15 Last Admin: 08/13/16 08:45 Dose: 2 mg Magnesium Hydroxide (Milk Of Magnesia) 30 ml PO Q4H PRN PRN Reason: Constipation Metoprolol Tartrate (Lopressor) 12.5 mg PO BID [facility] Last Admin: 08/14/16 11:11 Dose: 12.5 mg Mirtazapine (Remeron) 45 mg PO QHS [facility] Last Admin: 08/13/16 21:35 Dose: 45 mg Nifedipine (Procardia Xl) 30 mg PO Q12HR [facility] Nitroglycerin (Nitrostat) 0.4 mg SL .Q5MIN PRN PRN Reason: Chest Pain Ondansetron HCl (Zofran) 4 mg IV Q8H PRN PRN Reason: N/V unrelieved by Regteresita Quetiapine Fumarate (Seroquel) 400 mg PO QDAY [facility] Last Admin: 08/14/16 11:09 Dose: 400 mg Simvastatin (Zocor) 10 mg PO QHS [facility] Last Admin: 08/13/16 21:35 Dose: 10 mg Tenofovir Disoproxil Fumarate (Viread) 300 mg PO QDAY [facility] Last Admin: 08/14/16 11:12 Dose: 300 mg Thiamine HCl (Vitamin B-1) 100 mg PO QDAY [facility] Last Admin: 08/14/16 11:10 Dose: 100 mg Past psychiatric history - Past Medical History Past Medical History: HIV/AIDS Past Surgical History: Other (unable to obtain) - past Psychiatric treatment and history psychiatric treatment history: Per notes, patient has been inpatient for substance and alcohol abuse. Can not obtain psy hx. - Social History Social history: other (unable to obtain) Mental Status Exam - Vital signs Last Vital Signs Temp 97.9 F 08/14/16 08:47 Pulse 85 08/14/16 11:11 Resp 20 08/14/16 08:47 BP 178/100 08/14/16 11:11 Pulse Ox 98 08/14/16 08:47 - Exam Narrative exam: ROS: Active Withdrawals (alcohol) (+) disorganized MSE: Appearance: calm Behavior: psychomotor retarded, poor eye contact Speech: low rate and tone Mood: unable to assess Affect: flat Thought Process: unable to assess Thought Content: unable to assess Cognition: confused Insight: impaired Judgment: impaired Results Result Diagrams: 08/10/16 14:03 08/11/16 14:41 All other labs normal. Assessment and Plan Assessment and plan: Impression: Alcohol Withdrawal/Alcohol Use DO. The patient is a 50-year-old AA male presenting with a chief complaint of ETHO Withdrawal. Today patient presents confused and currently in restraints. Patient mumbled words that I could not understand when I asked him questions. He is currently on the CIWA Protocol with Ativan. No gestures SI/HI's and AVH's at this time. DD: Delirium (Metabolic Encephalopathy) Recommendation/Plan: Continue current CIWA Protocol. Reorient patient to current environment. Lights on and shades open during daytime hours. Write date and goals of care in a visible place. Try to avoid unnecessary interruptions to sleep during nighttime hours. ROM motions exercise with upper and lower extremities. Obtain glasses if patient uses these at baseline. Recommend 1:1 sitter. Monitor CK levels (Rhabdomyolysis). D/C restraints when indicated.
[2016-08-14] MEDS ORDERED: LIBRIUM PO PRN (16:43)
[2016-08-14] MEDS: PROCARDIA XL PO SCH (21:34)
[2016-08-14] MEDS: ZOCOR PO SCH (21:34)
[2016-08-14] MEDS: REMERON PO SCH (21:34)
[2016-08-15] MEDS: D5/0.45NS 1,000 ML IV SCH ×2 (01:14→15:35)
[2016-08-15] MEDS: PLAVIX PO SCH (09:31)
[2016-08-15] MEDS: KALETRA PO SCH ×2 (09:31→22:59)
[2016-08-15] MEDS: FOLVITE PO SCH (09:31)
[2016-08-15] MEDS: PROCARDIA XL PO SCH ×2 (09:32→22:58)
[2016-08-15] MEDS: VIREAD PO SCH (09:32)
[2016-08-15] MEDS: HCTZ PO SCH (09:33)
[2016-08-15] MEDS: ZESTRIL PO SCH (09:33)
[2016-08-15] MEDS: LOPRESSOR PO SCH ×2 (09:33→22:31)
[2016-08-15] MEDS: EMTRIVA PO SCH (09:33)
[2016-08-15] MEDS: VITAMIN B-1 PO SCH (09:34)
[2016-08-15] MEDS: ASPIRIN PO SCH (09:34)
[2016-08-15 10:50] LABS: Anion Gap 15 mmol/L; Blood Urea Nitrogen 6 mg/dL (9-20); Carbon Dioxide 22 mmol/L (22-30); Chloride 100.6 mmol/L (98-107); Glucose 86 mg/dL (75-100); Sodium 135 mmol/L (137-145)
[2016-08-15 10:54] LABS: Hematocrit 34.6 % (35.5-45.6); Hemoglobin 11.2 gm/dl (11.8-15.2); Mean Corpuscular HGB Conc 32 % (32-34); Mean Corpuscular Volume 80 fl (84-94); Red Blood Count 4.33 M/mm3 (3.65-5.03); Red Cell Distribution Width 16.8 % (13.2-15.2); White Blood Count 3.6 K/mm3 (4.5-11.0)
[2016-08-15 11:06] LABS: Mean Corpuscular Hemoglobin 26 pg (28-32); Platelet Count 90 K/mm3 (140-440)
--- NOTE | 2016-08-15 13:58 | Progress Note ---
Subjective - Reason for Consult Consult date: 08/15/16 Reason for consult: psychiatric follow-up - Chief Complaint Chief complaint: "Active Etoh Withdrawals" 50-year-old AA male presenting with a chief complaint of etoh Withdrawal. Patient is disoriented but attempts to be cooperative. He was observed to be in 4-point restraints and was attempting to sit up. He is currently on the [facility] Protocol with Ativan, which he is receiving. He has also ordered Librium but is not receiving it. He attempted to answer questions regarding orientation is oriented to person, place, but not date. He reports that his 2001 and at other points during the interview he reported it was 2000. He believes that he is going home today. No gestures SI/HI's and AVH's at this time. Mental Status Exam - Vital signs Last Vital Signs Temp 97.9 F 08/15/16 04:00 Pulse 99 H 08/15/16 05:54 Resp 20 08/15/16 04:00 BP 156/70 08/15/16 04:00 Pulse Ox 95 08/15/16 04:00 - Exam Orientation: place, person Affect: normal Mood: anxious Thought content: other (no SI, no HI. He believes he is going home) Thought Process: Disoriented Perceptions: other (unable to assess) Speech: minimal response (low) Concentration: unable to pay attention Motor activity: restless (work) Level of consciousness: confused Memory: Recent Impaired Sleep Symptoms: Restless Appetite: decreased Interaction: pleasant Assessment and Plan Because easily as"Active Etoh Withdrawals" 50-year-old AA male presenting with a chief complaint of etoh Withdrawal. Patient is disoriented but attempts to be cooperative. He was observed to be in 4-point restraints and was attempting to sit up. He is currently on the [facility] Protocol with Ativan, which he is receiving. He has also ordered Librium but is not receiving it. He attempted to answer questions regarding orientation is oriented to person, place, but not date. He reports that his 2001 and at other points during the interview he reported it was 2000. He believes that he is going home today. No gestures SI/HI's and AVH's at this time. DD: Delirium (Metabolic Encephalopathy) Recommendation/Plan: Continue current CI[facility] Protocol. Reorient patient to current environment. Lights on and shades open during daytime hours. Write date and goals of care in a visible place. Try to avoid unnecessary interruptions to sleep during nighttime hours. ROM motions exercise with upper and lower extremities. Obtain glasses if patient uses these at baseline. Recommend 1:1 sitter. Monitor CK levels (Rhabdomyolysis). D/C restraints when indicated.
[2016-08-15] MEDS ORDERED: K-DUR PO ONE ×2 (15:00→20:00)
[2016-08-15] MEDS: ATIVAN IV PRN ×2 (15:32→23:07)
--- NOTE | 2016-08-15 16:19 | Progress Note ---
Assessment and Plan Assessment and plan: 50 YO Male with ETOH Abuse, HTN, HIV, Nicotine Dependence presents to ED for evaluation. Pt states that he wants to "detox from alcohol." He presented with etoh withdrawal 1. Alcohol withdrawal Continue CIWA protocol, continue IV fluids, continue thiamine and folate continue to wean off librium 2. Metabolic encephalopathy Continue restraints, continue supportive care, continue IV fluids 3. History of chronic HIV continue retrovirals 4. Hypotension likely 2/2 dehydration, improved with IVF History Interval history: Mentation is improved, patient is less confused today oriented 2 Hospitalist Physical - Physical exam Narrative exam: General: Appeared well HEENT moist mucous membranes, extraocular muscles intact cardiac: S1-S2 heard lungs: clear to auscultation, abdomen: soft, nontender, nondistended bowel sounds positive extremities: no edema clubbing or cyanosis Skin: no rash or lesion Neuro: Oriented 2, not sure of the dates. He is more conversant, obese commands, has more insight today. - Constitutional Vitals: Temp Pulse Resp BP Pulse Ox 97.9 F 86 18 121/71 97 08/15/16 07:15 08/15/16 07:15 08/15/16 07:15 08/15/16 07:15 08/15/16 07:15 General appearance: Present: no acute distress, well-nourished Results - Labs CBC & Chem 7: 08/15/16 10:15 08/15/16 10:15 Labs: Laboratory Last Values WBC 3.6 K/mm3 (4.5-11.0) L 08/15/16 10:15 RBC 4.33 M/mm3 (3.65-5.03) 08/15/16 10:15 Hgb 11.2 gm/dl (11.8-15.2) L 08/15/16 10:15 Hct 34.6 % (35.5-45.6) L 08/15/16 10:15 MCV 80 fl (84-94) L 08/15/16 10:15 MCH 26 pg (28-32) L 08/15/16 10:15 MCHC 32 % (32-34) 08/15/16 10:15 RDW 16.8 % (13.2-15.2) H 08/15/16 10:15 Plt Count 90 K/mm3 (140-440) L 08/15/16 10:15 Lymph % (Auto) 9.4 % (13.4-35.0) L 08/10/16 14:03 [place] % (Auto) 6.0 % (0.0-7.3) 08/10/16 14:03 Eos % (Auto) 0.0 % (0.0-4.3) 08/10/16 14:03 Baso % (Auto) 0.6 % (0.0-1.8) 08/10/16 14:03 Lymph # 0.6 K/mm3 (1.2-5.4) L 08/10/16 14:03 [place] # 0.4 K/mm3 (0.0-0.8) 08/10/16 14:03 Eos # 0.0 K/mm3 (0.0-0.4) 08/10/16 14:03 Baso # 0.0 K/mm3 (0.0-0.1) 08/10/16 14:03 Seg Neutrophils % 84.0 % (40.0-70.0) H 08/10/16 14:03 Seg Neutrophils # 5.6 K/mm3 (1.8-7.7) 08/10/16 14:03 PT 13.3 Sec. (12.2-14.9) 08/10/16 15:08 INR 1.02 (0.87-1.13) 08/10/16 15:08 APTT 29.8 Sec. (24.2-36.6) 08/10/16 15:08 Sodium 135 mmol/L (137-145) L 08/15/16 10:15 Potassium 3.0 mmol/L (3.6-5.0) L D 08/15/16 10:15 Chloride 100.6 mmol/L (98-107) 08/15/16 10:15 Carbon Dioxide 22 mmol/L (22-30) 08/15/16 10:15 Anion Gap 15 mmol/L 08/15/16 10:15 BUN 6 mg/dL (9-20) L 08/15/16 10:15 Creatinine 1.0 mg/dL (0.8-1.5) 08/15/16 10:15 Estimated GFR > 60 ml/min 08/15/16 10:15 BUN/Creatinine Ratio 6.00 % 08/15/16 10:15 Glucose 86 mg/dL (75-100) 08/15/16 10:15 POC Glucose 102 (70-105) 08/15/16 05:41 Calcium 9.0 mg/dL (8.4-10.2) 08/15/16 10:15 Magnesium 1.8 mg/dL (1.7-2.3) 08/11/16 14:41 Total Bilirubin 1.1 mg/dL (0.1-1.2) 08/10/16 15:08 Direct Bilirubin 0.4 mg/dL (0-0.2) H 08/10/16 15:08 Indirect Bilirubin 0.7 mg/dL 08/10/16 15:08 AST 156 units/L (5-40) H 08/10/16 15:08 ALT 95 units/L (7-56) H 08/10/16 15:08 Alkaline Phosphatase 418 units/L (35-129) H 08/10/16 15:08 Ammonia 59.0 umol/L (25-60) 08/10/16 15:08 Total Creatine Kinase 134 units/L (55-170) 08/10/16 15:08 CK-MB (CK-2) 1.8 ng/mL (0.0-4.0) 08/10/16 15:08 CK-MB (CK-2) Rel Index 1.3 (0-4) 08/10/16 15:08 Troponin T < 0.010 ng/mL (0.00-0.029) 08/10/16 15:08 Total Protein 9.2 g/dL (6.3-8.2) H 08/10/16 15:08 Albumin 3.3 g/dL (3.9-5) L 08/10/16 15:08 Albumin/Globulin Ratio 0.6 % 08/10/16 15:08 Amylase 234 units/L (27-131) H 08/10/16 15:08 Lipase 57 units/L (13-60) 08/10/16 15:08 Urine Color Yellow (Yellow) 08/10/16 19:15 Urine Turbidity Clear (Clear) 08/10/16 19:15 Urine pH 5.0 (5.0-7.0) 08/10/16 19:15 Ur Specific [place] 1.013 (1.003-1.030) 08/10/16 19:15 Urine Protein <15 mg/dl mg/dL (Negative) 08/10/16 19:15 Urine Glucose (UA) Neg mg/dL (Negative) 08/10/16 19:15 Urine Ketones Tr mg/dL (Negative) 08/10/16 19:15 Urine Blood Mod (Negative) 08/10/16 19:15 Urine Nitrite Neg (Negative) 08/10/16 19:15 Urine Bilirubin Neg (Negative) 08/10/16 19:15 Urine Urobilinogen < 2.0 mg/dL (<2.0) 08/10/16 19:15 Ur Leukocyte Esterase Neg (Negative) 08/10/16 19:15 Urine WBC (Auto) 1.0 /HPF (0.0-6.0) 08/10/16 19:15 Urine RBC (Auto) 1.0 /HPF (0.0-6.0) 08/10/16 19:15 Plasma/Serum Alcohol 0.04 gm% (0-0.07) 08/10/16 15:08
[2016-08-15] MEDS ORDERED: LIBRIUM PO ONE (17:00)
[2016-08-15] MEDS: LIBRIUM PO SCH (19:44)
[2016-08-15] MEDS: ZOCOR PO SCH (22:58)
[2016-08-15] MEDS: REMERON PO SCH (22:59)
[2016-08-16] MEDS: LIBRIUM PO SCH ×6 (00:59→21:37)
--- NOTE | 2016-08-16 08:02 | Progress Note ---
Subjective - Reason for Consult Consult date: 08/16/16 Reason for consult: Psychiatry Follow-up - Chief Complaint Chief complaint: "I feel bad for drinking" 50-year-old AA male presenting with a chief complaint of Etoh Withdrawal. Today patient is calm, cooperative with a circumstantial thought process. He stated that he feel bad because he drink "to much." He state that his girlfriend says bad things about him. He stated he pays all the bills and she do drugs. After a week of drug use she call him a "stupid bitch." He stated this is one of the major reason why he consume alcohol. He stated he took his last drink last Saturday08/10/2016. He was able to tell me the [place] President, his but only recall 2/3 numbers after 5 mins (3, 6, 10). He stated that he struggled with alcoholism for 30 years want help. Patient more alert today than previous assessment on . He denies SI/HI's and AVH's at this time. Patient currently in restraints. Last Ativan was given yesterday at 2307 per [facility] Protocol. Patient was drinking fluids when I arrived to his room. Family hx of alcoholism (Father ) Mental Status Exam - Vital signs Last Vital Signs Temp 98.2 F 08/16/16 07:00 Pulse 78 08/16/16 07:00 Resp 20 08/16/16 07:00 BP 134/79 08/16/16 07:00 Pulse Ox 99 08/16/16 07:00 - Exam Narrative exam: MSE: Appearance: calm, cooperative Behavior: psychomotor retarded, poor eye contact Speech: low rate and tone Mood: "I feel bad" Affect: flat Thought Process: circumstantial Thought Content: denies AVH/SI's Cognition: A/Ox3 Insight: fair Judgment: poor Assessment and Plan Impression: 50-year-old AA male presenting with a chief complaint of Etoh Withdrawal. Today patient is calm, cooperative with a circumstantial thought process. He stated that he feel bad because he drink "to much." He state that his girlfriend says bad things about him. He stated he pays all the bills and she do drugs. After a week of drug use she call him a "stupid bitch." He denies SI/HI's and AVH's at this time. Recommendation/Plan: Recommendation/Plan: Continue current CIWA Protocol. Reorient patient to current environment. Lights on and shades open during daytime hours. Write date and goals of care in a visible place. Try to avoid unnecessary interruptions to sleep during nighttime hours. ROM motions exercise with upper and lower extremities. Obtain glasses if patient uses these at baseline. Recommend 1:1 sitter. Monitor CK levels (Rhabdomyolysis). D/C restraints when indicated.
[2016-08-16 08:43] LABS: Magnesium 1.4 mg/dL (1.7-2.3)
[2016-08-16] MEDS: VITAMIN B-1 PO SCH (11:00)
[2016-08-16] MEDS: VIREAD PO SCH (11:00)
[2016-08-16] MEDS: KALETRA PO SCH ×2 (11:00→21:36)
[2016-08-16] MEDS ORDERED: MAGNESIUM SULFATE 4GM/100ML 4 GM/100 ML BAG IV ONE (11:00)
[2016-08-16] MEDS: EMTRIVA PO SCH (11:00)
[2016-08-16] MEDS: ASPIRIN PO SCH (11:01)
[2016-08-16] MEDS: FOLVITE PO SCH (11:02)
[2016-08-16] MEDS: HCTZ PO SCH (11:02)
[2016-08-16] MEDS: PROCARDIA XL PO SCH ×2 (11:02→21:42)
[2016-08-16] MEDS: NORCO 10/325 PO PRN (11:03)
[2016-08-16] MEDS: ATIVAN IV PRN ×2 (11:03→16:15)
[2016-08-16] MEDS: K-DUR PO SCH (12:44)
[2016-08-16] MEDS: PLAVIX PO SCH (12:44)
[2016-08-16] MEDS: LOPRESSOR PO SCH ×2 (12:51→21:40)
[2016-08-16] MEDS: ZESTRIL PO SCH (14:02)
--- NOTE | 2016-08-16 14:50 | Progress Note ---
Hospitalist Physical - Constitutional Vitals: Temp Pulse Resp BP Pulse Ox 97.6 F 86 20 117/71 99 08/16/16 11:43 08/16/16 14:02 08/16/16 11:43 08/16/16 14:02 08/16/16 07:00 General appearance: Present: no acute distress, well-nourished Results - Labs CBC & Chem 7: 08/15/16 10:15 08/16/16 07:36 Labs: Laboratory Last Values WBC 3.6 K/mm3 (4.5-11.0) L 08/15/16 10:15 RBC 4.33 M/mm3 (3.65-5.03) 08/15/16 10:15 Hgb 11.2 gm/dl (11.8-15.2) L 08/15/16 10:15 Hct 34.6 % (35.5-45.6) L 08/15/16 10:15 MCV 80 fl (84-94) L 08/15/16 10:15 MCH 26 pg (28-32) L 08/15/16 10:15 MCHC 32 % (32-34) 08/15/16 10:15 RDW 16.8 % (13.2-15.2) H 08/15/16 10:15 Plt Count 90 K/mm3 (140-440) L 08/15/16 10:15 Lymph % (Auto) 9.4 % (13.4-35.0) L 08/10/16 14:03 [place] % (Auto) 6.0 % (0.0-7.3) 08/10/16 14:03 Eos % (Auto) 0.0 % (0.0-4.3) 08/10/16 14:03 Baso % (Auto) 0.6 % (0.0-1.8) 08/10/16 14:03 Lymph # 0.6 K/mm3 (1.2-5.4) L 08/10/16 14:03 [place] # 0.4 K/mm3 (0.0-0.8) 08/10/16 14:03 Eos # 0.0 K/mm3 (0.0-0.4) 08/10/16 14:03 Baso # 0.0 K/mm3 (0.0-0.1) 08/10/16 14:03 Seg Neutrophils % 84.0 % (40.0-70.0) H 08/10/16 14:03 Seg Neutrophils # 5.6 K/mm3 (1.8-7.7) 08/10/16 14:03 PT 13.3 Sec. (12.2-14.9) 08/10/16 15:08 INR 1.02 (0.87-1.13) 08/10/16 15:08 APTT 29.8 Sec. (24.2-36.6) 08/10/16 15:08 Sodium 135 mmol/L (137-145) L 08/15/16 10:15 Potassium 3.0 mmol/L (3.6-5.0) L 08/16/16 07:36 Chloride 100.6 mmol/L (98-107) 08/15/16 10:15 Carbon Dioxide 22 mmol/L (22-30) 08/15/16 10:15 Anion Gap 15 mmol/L 08/15/16 10:15 BUN 6 mg/dL (9-20) L 08/15/16 10:15 Creatinine 1.0 mg/dL (0.8-1.5) 08/15/16 10:15 Estimated GFR > 60 ml/min 08/15/16 10:15 BUN/Creatinine Ratio 6.00 % 08/15/16 10:15 Glucose 86 mg/dL (75-100) 08/15/16 10:15 POC Glucose 103 (70-105) 08/16/16 11:09 Calcium 9.0 mg/dL (8.4-10.2) 08/15/16 10:15 Magnesium 1.4 mg/dL (1.7-2.3) L 08/16/16 07:36 Total Bilirubin 1.1 mg/dL (0.1-1.2) 08/10/16 15:08 Direct Bilirubin 0.4 mg/dL (0-0.2) H 08/10/16 15:08 Indirect Bilirubin 0.7 mg/dL 08/10/16 15:08 AST 156 units/L (5-40) H 08/10/16 15:08 ALT 95 units/L (7-56) H 08/10/16 15:08 Alkaline Phosphatase 418 units/L (35-129) H 08/10/16 15:08 Ammonia 59.0 umol/L (25-60) 08/10/16 15:08 Total Creatine Kinase 134 units/L (55-170) 08/10/16 15:08 CK-MB (CK-2) 1.8 ng/mL (0.0-4.0) 08/10/16 15:08 CK-MB (CK-2) Rel Index 1.3 (0-4) 08/10/16 15:08 Troponin T < 0.010 ng/mL (0.00-0.029) 08/10/16 15:08 Total Protein 9.2 g/dL (6.3-8.2) H 08/10/16 15:08 Albumin 3.3 g/dL (3.9-5) L 08/10/16 15:08 Albumin/Globulin Ratio 0.6 % 08/10/16 15:08 Amylase 234 units/L (27-131) H 08/10/16 15:08 Lipase 57 units/L (13-60) 08/10/16 15:08 Urine Color Yellow (Yellow) 08/10/16 19:15 Urine Turbidity Clear (Clear) 08/10/16 19:15 Urine pH 5.0 (5.0-7.0) 08/10/16 19:15 Ur Specific [place] 1.013 (1.003-1.030) 08/10/16 19:15 Urine Protein <15 mg/dl mg/dL (Negative) 08/10/16 19:15 Urine Glucose (UA) Neg mg/dL (Negative) 08/10/16 19:15 Urine Ketones Tr mg/dL (Negative) 08/10/16 19:15 Urine Blood Mod (Negative) 08/10/16 19:15 Urine Nitrite Neg (Negative) 08/10/16 19:15 Urine Bilirubin Neg (Negative) 08/10/16 19:15 Urine Urobilinogen < 2.0 mg/dL (<2.0) 08/10/16 19:15 Ur Leukocyte Esterase Neg (Negative) 08/10/16 19:15 Urine WBC (Auto) 1.0 /HPF (0.0-6.0) 08/10/16 19:15 Urine RBC (Auto) 1.0 /HPF (0.0-6.0) 08/10/16 19:15 Plasma/Serum Alcohol 0.04 gm% (0-0.07) 08/10/16 15:08
[2016-08-16] MEDS ORDERED: K-DUR PO ONE (20:00)
[2016-08-16] MEDS: REMERON PO SCH (21:36)
[2016-08-16] MEDS: ZOCOR PO SCH (21:37)
[2016-08-16] MEDS: D5/0.45NS 1,000 ML IV SCH (21:39)
[2016-08-17] MEDS: NORCO 10/325 PO PRN ×2 (02:47→21:52)
[2016-08-17 05:13] LABS: Magnesium 1.8 mg/dL (1.7-2.3)
[2016-08-17 05:14] LABS: Potassium 3.9 mmol/L (3.6-5.0)
[2016-08-17] MEDS: VIREAD PO SCH (10:55)
[2016-08-17] MEDS: ASPIRIN PO SCH (10:55)
[2016-08-17] MEDS: KALETRA PO SCH ×2 (10:55→21:43)
[2016-08-17] MEDS: PLAVIX PO SCH (10:55)
[2016-08-17] MEDS: K-DUR PO SCH (10:55)
[2016-08-17] MEDS: EMTRIVA PO SCH (10:55)
[2016-08-17] MEDS: VITAMIN B-1 PO SCH (10:55)
[2016-08-17] MEDS: FOLVITE PO SCH (10:56)
[2016-08-17] MEDS: PROCARDIA XL PO SCH ×3 (10:56→21:53)
[2016-08-17] MEDS: LIBRIUM PO SCH ×4 (10:57→21:44)
[2016-08-17] MEDS: HCTZ PO SCH (11:12)
[2016-08-17] MEDS: D5/0.45NS 1,000 ML IV SCH (12:07)
--- NOTE | 2016-08-17 14:02 | Progress Note ---
Subjective - Reason for Consult Consult date: 08/17/16 Reason for consult: psychiatric follow up - Chief Complaint Chief complaint: "I feel bad for drinking" 50-year-old AA male presenting with a chief complaint of Etoh Withdrawal. He stated he took his last drink last Saturday08/10/2016. He was oriented to person, place, and time. He wanted to know why he is still in the hospital. He wants to go for treatment. He stated that he struggled with alcoholism for 30 years want help. He denies SI/HI's and AVH's at this time. He last received Ativan per CIWA Protocol on 08/16/16. He is receiving Librium 5mg qid for detox. Mental Status Exam - Vital signs Last Vital Signs Temp 98.7 F 08/17/16 11:35 Pulse 80 08/17/16 11:35 Resp 16 08/17/16 11:35 BP 120/70 08/17/16 11:35 Pulse Ox 96 08/17/16 07:22 - Exam Orientation: time, place, person Affect: depressed Mood: congruent with affect Thought content: other (no SI/no HI) Thought Process: Circumstantial Speech: slow Concentration: focused Motor activity: lethargic Level of consciousness: alert Sleep Symptoms: Difficulty Falling Asleep Assessment and Plan " 50-year-old AA male presenting with a chief complaint of etoh Withdrawal. He also has depressive symptoms. No gestures SI/HI's and AVH's at this time. DD: Delirium (Metabolic Encephalopathy) Recommendation/Plan: slowly taper librium. 08/18/16: librium 5mg bid + CIWA. Mental health team is working on finding a treatment facility for the treatment of alcohol dependence and mood symptoms once medically cleared.
--- NOTE | 2016-08-17 16:49 | Progress Note ---
Assessment and Plan Assessment and plan: 50 YO Male with ETOH Abuse, HTN, HIV, Nicotine Dependence presents to ED for evaluation. Pt states that he wants to "detox from alcohol." He presented with etoh withdrawal 1. Alcohol withdrawal Continue CIWA protocol, continue IV fluids, continue thiamine and folate continue to wean off librium 2. Metabolic encephalopathy restraints were dc, continue 1013, improving 3. History of chronic HIV continue retrovirals 4. Hypotension likely 2/2 dehydration, improved with IVF patient is planned for inpatient detox placement Hospitalist Physical - Constitutional Vitals: Temp Pulse Resp BP Pulse Ox 98.7 F 80 16 120/70 96 08/17/16 11:35 08/17/16 11:35 08/17/16 11:35 08/17/16 11:35 08/17/16 07:22 General appearance: Present: no acute distress, well-nourished Results - Labs CBC & Chem 7: 08/15/16 10:15 08/17/16 04:42 Labs: Laboratory Last Values WBC 3.6 K/mm3 (4.5-11.0) L 08/15/16 10:15 RBC 4.33 M/mm3 (3.65-5.03) 08/15/16 10:15 Hgb 11.2 gm/dl (11.8-15.2) L 08/15/16 10:15 Hct 34.6 % (35.5-45.6) L 08/15/16 10:15 MCV 80 fl (84-94) L 08/15/16 10:15 MCH 26 pg (28-32) L 08/15/16 10:15 MCHC 32 % (32-34) 08/15/16 10:15 RDW 16.8 % (13.2-15.2) H 08/15/16 10:15 Plt Count 90 K/mm3 (140-440) L 08/15/16 10:15 Lymph % (Auto) 9.4 % (13.4-35.0) L 08/10/16 14:03 [place] % (Auto) 6.0 % (0.0-7.3) 08/10/16 14:03 Eos % (Auto) 0.0 % (0.0-4.3) 08/10/16 14:03 Baso % (Auto) 0.6 % (0.0-1.8) 08/10/16 14:03 Lymph # 0.6 K/mm3 (1.2-5.4) L 08/10/16 14:03 [place] # 0.4 K/mm3 (0.0-0.8) 08/10/16 14:03 Eos # 0.0 K/mm3 (0.0-0.4) 08/10/16 14:03 Baso # 0.0 K/mm3 (0.0-0.1) 08/10/16 14:03 Seg Neutrophils % 84.0 % (40.0-70.0) H 08/10/16 14:03 Seg Neutrophils # 5.6 K/mm3 (1.8-7.7) 08/10/16 14:03 PT 13.3 Sec. (12.2-14.9) 08/10/16 15:08 INR 1.02 (0.87-1.13) 08/10/16 15:08 APTT 29.8 Sec. (24.2-36.6) 08/10/16 15:08 Sodium 135 mmol/L (137-145) L 08/15/16 10:15 Potassium 3.9 mmol/L (3.6-5.0) D 08/17/16 04:42 Chloride 100.6 mmol/L (98-107) 08/15/16 10:15 Carbon Dioxide 22 mmol/L (22-30) 08/15/16 10:15 Anion Gap 15 mmol/L 08/15/16 10:15 BUN 6 mg/dL (9-20) L 08/15/16 10:15 Creatinine 1.0 mg/dL (0.8-1.5) 08/15/16 10:15 Estimated GFR > 60 ml/min 08/15/16 10:15 BUN/Creatinine Ratio 6.00 % 08/15/16 10:15 Glucose 86 mg/dL (75-100) 08/15/16 10:15 POC Glucose 121 (70-105) H 08/17/16 11:32 Calcium 9.0 mg/dL (8.4-10.2) 08/15/16 10:15 Magnesium 1.8 mg/dL (1.7-2.3) 08/17/16 04:42 Total Bilirubin 1.1 mg/dL (0.1-1.2) 08/10/16 15:08 Direct Bilirubin 0.4 mg/dL (0-0.2) H 08/10/16 15:08 Indirect Bilirubin 0.7 mg/dL 08/10/16 15:08 AST 156 units/L (5-40) H 08/10/16 15:08 ALT 95 units/L (7-56) H 08/10/16 15:08 Alkaline Phosphatase 418 units/L (35-129) H 08/10/16 15:08 Ammonia 59.0 umol/L (25-60) 08/10/16 15:08 Total Creatine Kinase 134 units/L (55-170) 08/10/16 15:08 CK-MB (CK-2) 1.8 ng/mL (0.0-4.0) 08/10/16 15:08 CK-MB (CK-2) Rel Index 1.3 (0-4) 08/10/16 15:08 Troponin T < 0.010 ng/mL (0.00-0.029) 08/10/16 15:08 Total Protein 9.2 g/dL (6.3-8.2) H 08/10/16 15:08 Albumin 3.3 g/dL (3.9-5) L 08/10/16 15:08 Albumin/Globulin Ratio 0.6 % 08/10/16 15:08 Amylase 234 units/L (27-131) H 08/10/16 15:08 Lipase 57 units/L (13-60) 08/10/16 15:08 Urine Color Yellow (Yellow) 08/10/16 19:15 Urine Turbidity Clear (Clear) 08/10/16 19:15 Urine pH 5.0 (5.0-7.0) 08/10/16 19:15 Ur Specific [place] 1.013 (1.003-1.030) 08/10/16 19:15 Urine Protein <15 mg/dl mg/dL (Negative) 08/10/16 19:15 Urine Glucose (UA) Neg mg/dL (Negative) 08/10/16 19:15 Urine Ketones Tr mg/dL (Negative) 08/10/16 19:15 Urine Blood Mod (Negative) 08/10/16 19:15 Urine Nitrite Neg (Negative) 08/10/16 19:15 Urine Bilirubin Neg (Negative) 08/10/16 19:15 Urine Urobilinogen < 2.0 mg/dL (<2.0) 08/10/16 19:15 Ur Leukocyte Esterase Neg (Negative) 08/10/16 19:15 Urine WBC (Auto) 1.0 /HPF (0.0-6.0) 08/10/16 19:15 Urine RBC (Auto) 1.0 /HPF (0.0-6.0) 08/10/16 19:15 Plasma/Serum Alcohol 0.04 gm% (0-0.07) 08/10/16 15:08
[2016-08-17] MEDS: PROTONIX PO SCH (18:16)
[2016-08-17] MEDS: ZESTRIL PO SCH (21:03)
[2016-08-17] MEDS: LOPRESSOR PO SCH ×2 (21:03→21:51)
[2016-08-17] MEDS: REMERON PO SCH (21:43)
[2016-08-17] MEDS: ZOCOR PO SCH (21:44)
--- NOTE | 2016-08-18 06:49 | Progress Note ---
Assessment and Plan - Patient Problems (1) Alcohol withdrawal Current Visit: Yes Status: Acute Qualifiers: Complication of substance-induced condition: C Plan to address problem: Alcohol withdrawal Continue CIWA protocol, continue IV fluids, continue thiamine and folate continue to wean off librium (2) HIV (human immunodeficiency virus infection) Current Visit: No Status: Chronic Plan to address problem: History of chronic HIV continue retrovirals (3) HTN (hypertension) Current Visit: No Status: Chronic Qualifiers: Hypertension type: essential hypertension Qualified Code(s): I10 - Essential (primary) hypertension Plan to address problem: Continue antihypertensives meds. Low salt diet History Interval history: Patient awake alert awaiting breakfast Hospitalist Physical - Constitutional Vitals: Temp Pulse Resp BP Pulse Ox 98.8 F 84 18 106/66 98 08/17/16 16:16 08/18/16 00:58 08/17/16 18:00 08/17/16 21:51 08/17/16 16:16 General appearance: Present: no acute distress, well-nourished - EENT Eyes: Present: PERRL, EOM intact ENT: hearing intact, clear oral mucosa - Neck Neck: Present: supple, normal ROM - Respiratory Respiratory effort: normal Respiratory: bilateral: CTA - Cardiovascular Rhythm: regular Heart Sounds: Present: S1 & S2 - Extremities Extremities: no ischemia, No edema - Abdominal General gastrointestinal: soft, non-tender, non-distended, normal bowel sounds - Psychiatric Psychiatric: appropriate mood/affect, intact judgment & insight - Neurologic Neurologic: CNII-XII intact, moves all extremities Results - Labs CBC & Chem 7: 08/15/16 10:15 08/17/16 04:42 Labs: Laboratory Last Values WBC 3.6 K/mm3 (4.5-11.0) L 08/15/16 10:15 RBC 4.33 M/mm3 (3.65-5.03) 08/15/16 10:15 Hgb 11.2 gm/dl (11.8-15.2) L 08/15/16 10:15 Hct 34.6 % (35.5-45.6) L 08/15/16 10:15 MCV 80 fl (84-94) L 08/15/16 10:15 MCH 26 pg (28-32) L 08/15/16 10:15 MCHC 32 % (32-34) 08/15/16 10:15 RDW 16.8 % (13.2-15.2) H 08/15/16 10:15 Plt Count 90 K/mm3 (140-440) L 08/15/16 10:15 Lymph % (Auto) 9.4 % (13.4-35.0) L 08/10/16 14:03 [place] % (Auto) 6.0 % (0.0-7.3) 08/10/16 14:03 Eos % (Auto) 0.0 % (0.0-4.3) 08/10/16 14:03 Baso % (Auto) 0.6 % (0.0-1.8) 08/10/16 14:03 Lymph # 0.6 K/mm3 (1.2-5.4) L 08/10/16 14:03 [place] # 0.4 K/mm3 (0.0-0.8) 08/10/16 14:03 Eos # 0.0 K/mm3 (0.0-0.4) 08/10/16 14:03 Baso # 0.0 K/mm3 (0.0-0.1) 08/10/16 14:03 Seg Neutrophils % 84.0 % (40.0-70.0) H 08/10/16 14:03 Seg Neutrophils # 5.6 K/mm3 (1.8-7.7) 08/10/16 14:03 PT 13.3 Sec. (12.2-14.9) 08/10/16 15:08 INR 1.02 (0.87-1.13) 08/10/16 15:08 APTT 29.8 Sec. (24.2-36.6) 08/10/16 15:08 Sodium 135 mmol/L (137-145) L 08/15/16 10:15 Potassium 3.9 mmol/L (3.6-5.0) D 08/17/16 04:42 Chloride 100.6 mmol/L (98-107) 08/15/16 10:15 Carbon Dioxide 22 mmol/L (22-30) 08/15/16 10:15 Anion Gap 15 mmol/L 08/15/16 10:15 BUN 6 mg/dL (9-20) L 08/15/16 10:15 Creatinine 1.0 mg/dL (0.8-1.5) 08/15/16 10:15 Estimated GFR > 60 ml/min 08/15/16 10:15 BUN/Creatinine Ratio 6.00 % 08/15/16 10:15 Glucose 86 mg/dL (75-100) 08/15/16 10:15 POC Glucose 121 (70-105) H 08/17/16 11:32 Calcium 9.0 mg/dL (8.4-10.2) 08/15/16 10:15 Magnesium 1.8 mg/dL (1.7-2.3) 08/17/16 04:42 Total Bilirubin 1.1 mg/dL (0.1-1.2) 08/10/16 15:08 Direct Bilirubin 0.4 mg/dL (0-0.2) H 08/10/16 15:08 Indirect Bilirubin 0.7 mg/dL 08/10/16 15:08 AST 156 units/L (5-40) H 08/10/16 15:08 ALT 95 units/L (7-56) H 08/10/16 15:08 Alkaline Phosphatase 418 units/L (35-129) H 08/10/16 15:08 Ammonia 59.0 umol/L (25-60) 08/10/16 15:08 Total Creatine Kinase 134 units/L (55-170) 08/10/16 15:08 CK-MB (CK-2) 1.8 ng/mL (0.0-4.0) 08/10/16 15:08 CK-MB (CK-2) Rel Index 1.3 (0-4) 08/10/16 15:08 Troponin T < 0.010 ng/mL (0.00-0.029) 08/18/16 03:20 Total Protein 9.2 g/dL (6.3-8.2) H 08/10/16 15:08 Albumin 3.3 g/dL (3.9-5) L 08/10/16 15:08 Albumin/Globulin Ratio 0.6 % 08/10/16 15:08 Amylase 234 units/L (27-131) H 08/10/16 15:08 Lipase 57 units/L (13-60) 08/10/16 15:08 Urine Color Yellow (Yellow) 08/10/16 19:15 Urine Turbidity Clear (Clear) 08/10/16 19:15 Urine pH 5.0 (5.0-7.0) 08/10/16 19:15 Ur Specific [place] 1.013 (1.003-1.030) 08/10/16 19:15 Urine Protein <15 mg/dl mg/dL (Negative) 08/10/16 19:15 Urine Glucose (UA) Neg mg/dL (Negative) 08/10/16 19:15 Urine Ketones Tr mg/dL (Negative) 08/10/16 19:15 Urine Blood Mod (Negative) 08/10/16 19:15 Urine Nitrite Neg (Negative) 08/10/16 19:15 Urine Bilirubin Neg (Negative) 08/10/16 19:15 Urine Urobilinogen < 2.0 mg/dL (<2.0) 08/10/16 19:15 Ur Leukocyte Esterase Neg (Negative) 08/10/16 19:15 Urine WBC (Auto) 1.0 /HPF (0.0-6.0) 08/10/16 19:15 Urine RBC (Auto) 1.0 /HPF (0.0-6.0) 08/10/16 19:15 Plasma/Serum Alcohol 0.04 gm% (0-0.07) 08/10/16 15:08
[2016-08-18] MEDS: HCTZ PO SCH (10:00)
[2016-08-18] MEDS: PROCARDIA XL PO SCH ×2 (10:00→21:30)
[2016-08-18] MEDS: ZESTRIL PO SCH (10:00)
[2016-08-18] MEDS: LOPRESSOR PO SCH ×2 (10:00→21:30)
[2016-08-18] MEDS: PROTONIX PO SCH (10:15)
[2016-08-18] MEDS: KALETRA PO SCH ×2 (10:15→21:28)
[2016-08-18] MEDS: K-DUR PO SCH (10:16)
[2016-08-18] MEDS: LIBRIUM PO SCH ×2 (10:16→21:29)
[2016-08-18] MEDS: FOLVITE PO SCH (10:17)
[2016-08-18] MEDS: NORCO 10/325 PO PRN ×2 (10:17→21:29)
[2016-08-18] MEDS: VITAMIN B-1 PO SCH (10:17)
[2016-08-18] MEDS: ASPIRIN PO SCH (10:18)
[2016-08-18] MEDS: VIREAD PO SCH (10:18)
[2016-08-18] MEDS: PLAVIX PO SCH (10:18)
[2016-08-18] MEDS: EMTRIVA PO SCH (10:19)
--- NOTE | 2016-08-18 20:58 | Progress Note ---
Subjective - Reason for Consult Reason for consult: ashley consult - Chief Complaint Chief complaint: 50-year-old AA male presenting with a chief complaint of Etoh Withdrawal. Patient notes that he feels much better. He denies any withdrawal symptoms. He states that he is back to him normal self. He denies any SI/HI/AH/VH. No depression or psychosis. He still continues to want help with his drinking. The staff notes no falls and he hasn't been aggressive with them. Mental Status Exam - Vital signs Last Vital Signs Temp 98.4 F 08/18/16 15:54 Pulse 81 08/18/16 15:54 Resp 20 08/18/16 15:54 BP 108/66 08/18/16 15:54 Pulse Ox 97 08/18/16 15:54 - Exam Orientation: time, place, person Affect: normal Mood: appropriate Thought Process: Intact Perceptions: none Speech: normal rate and pattern Concentration: focused Motor activity: normal Level of consciousness: alert Memory: Intact Interaction: cooperative Assessment and Plan 50-year-old AA male presenting with a chief complaint of etoh Withdrawal. He now denies any depressive symptoms. No gestures SI/HI's and AVH's at this time. Recommendation/Plan: -delirium seems to be under control taper librium once medically cleared patient can continue detox on an inpt unit or if detoxed he can follow up with rehab
[2016-08-18] MEDS: REMERON PO SCH (21:27)
[2016-08-18] MEDS: ZOCOR PO SCH (21:28)
--- NOTE | 2016-08-19 07:45 | Progress Note ---
Assessment and Plan - Patient Problems (1) Alcohol withdrawal Current Visit: Yes Status: Acute Qualifiers: Complication of substance-induced condition: C Plan to address problem: Alcohol withdrawal Continue CIWA protocol, continue IV fluids, continue thiamine and folate continue to wean off librium. Patient will need to be treated in an inpatient detox unit after medical clearance (2) HIV (human immunodeficiency virus infection) Current Visit: No Status: Chronic Plan to address problem: History of chronic HIV continue retrovirals (3) HTN (hypertension) Current Visit: No Status: Chronic Qualifiers: Hypertension type: essential hypertension Qualified Code(s): I10 - Essential (primary) hypertension Plan to address problem: Continue antihypertensives meds. Low salt diet History Interval history: Patient awake alert awaiting breakfast Hospitalist Physical - Constitutional Vitals: Temp Pulse Resp BP Pulse Ox 98.2 F 73 20 114/79 99 08/18/16 21:30 08/19/16 04:15 08/18/16 15:54 08/19/16 04:15 08/18/16 21:30 General appearance: Present: no acute distress, well-nourished - EENT Eyes: Present: PERRL, EOM intact ENT: hearing intact, clear oral mucosa - Neck Neck: Present: supple, normal ROM - Respiratory Respiratory effort: normal Respiratory: bilateral: CTA - Cardiovascular Rhythm: regular Heart Sounds: Present: S1 & S2 - Extremities Extremities: no ischemia, No edema - Abdominal General gastrointestinal: soft, non-tender, non-distended, normal bowel sounds - Psychiatric Psychiatric: appropriate mood/affect, intact judgment & insight - Neurologic Neurologic: CNII-XII intact, moves all extremities Results - Labs CBC & Chem 7: 08/15/16 10:15 08/17/16 04:42 Labs: Laboratory Last Values WBC 3.6 K/mm3 (4.5-11.0) L 08/15/16 10:15 RBC 4.33 M/mm3 (3.65-5.03) 08/15/16 10:15 Hgb 11.2 gm/dl (11.8-15.2) L 08/15/16 10:15 Hct 34.6 % (35.5-45.6) L 08/15/16 10:15 MCV 80 fl (84-94) L 08/15/16 10:15 MCH 26 pg (28-32) L 08/15/16 10:15 MCHC 32 % (32-34) 08/15/16 10:15 RDW 16.8 % (13.2-15.2) H 08/15/16 10:15 Plt Count 90 K/mm3 (140-440) L 08/15/16 10:15 Lymph % (Auto) 9.4 % (13.4-35.0) L 08/10/16 14:03 [place] % (Auto) 6.0 % (0.0-7.3) 08/10/16 14:03 Eos % (Auto) 0.0 % (0.0-4.3) 08/10/16 14:03 Baso % (Auto) 0.6 % (0.0-1.8) 08/10/16 14:03 Lymph # 0.6 K/mm3 (1.2-5.4) L 08/10/16 14:03 [place] # 0.4 K/mm3 (0.0-0.8) 08/10/16 14:03 Eos # 0.0 K/mm3 (0.0-0.4) 08/10/16 14:03 Baso # 0.0 K/mm3 (0.0-0.1) 08/10/16 14:03 Seg Neutrophils % 84.0 % (40.0-70.0) H 08/10/16 14:03 Seg Neutrophils # 5.6 K/mm3 (1.8-7.7) 08/10/16 14:03 PT 13.3 Sec. (12.2-14.9) 08/10/16 15:08 INR 1.02 (0.87-1.13) 08/10/16 15:08 APTT 29.8 Sec. (24.2-36.6) 08/10/16 15:08 Sodium 135 mmol/L (137-145) L 08/15/16 10:15 Potassium 3.9 mmol/L (3.6-5.0) D 08/17/16 04:42 Chloride 100.6 mmol/L (98-107) 08/15/16 10:15 Carbon Dioxide 22 mmol/L (22-30) 08/15/16 10:15 Anion Gap 15 mmol/L 08/15/16 10:15 BUN 6 mg/dL (9-20) L 08/15/16 10:15 Creatinine 1.0 mg/dL (0.8-1.5) 08/15/16 10:15 Estimated GFR > 60 ml/min 08/15/16 10:15 BUN/Creatinine Ratio 6.00 % 08/15/16 10:15 Glucose 86 mg/dL (75-100) 08/15/16 10:15 POC Glucose 121 (70-105) H 08/17/16 11:32 Calcium 9.0 mg/dL (8.4-10.2) 08/15/16 10:15 Magnesium 1.8 mg/dL (1.7-2.3) 08/17/16 04:42 Total Bilirubin 1.1 mg/dL (0.1-1.2) 08/10/16 15:08 Direct Bilirubin 0.4 mg/dL (0-0.2) H 08/10/16 15:08 Indirect Bilirubin 0.7 mg/dL 08/10/16 15:08 AST 156 units/L (5-40) H 08/10/16 15:08 ALT 95 units/L (7-56) H 08/10/16 15:08 Alkaline Phosphatase 418 units/L (35-129) H 08/10/16 15:08 Ammonia 59.0 umol/L (25-60) 08/10/16 15:08 Total Creatine Kinase 134 units/L (55-170) 08/10/16 15:08 CK-MB (CK-2) 1.8 ng/mL (0.0-4.0) 08/10/16 15:08 CK-MB (CK-2) Rel Index 1.3 (0-4) 08/10/16 15:08 Troponin T < 0.010 ng/mL (0.00-0.029) 08/18/16 03:20 Total Protein 9.2 g/dL (6.3-8.2) H 08/10/16 15:08 Albumin 3.3 g/dL (3.9-5) L 08/10/16 15:08 Albumin/Globulin Ratio 0.6 % 08/10/16 15:08 Amylase 234 units/L (27-131) H 08/10/16 15:08 Lipase 57 units/L (13-60) 08/10/16 15:08 Urine Color Yellow (Yellow) 08/10/16 19:15 Urine Turbidity Clear (Clear) 08/10/16 19:15 Urine pH 5.0 (5.0-7.0) 08/10/16 19:15 Ur Specific [place] 1.013 (1.003-1.030) 08/10/16 19:15 Urine Protein <15 mg/dl mg/dL (Negative) 08/10/16 19:15 Urine Glucose (UA) Neg mg/dL (Negative) 08/10/16 19:15 Urine Ketones Tr mg/dL (Negative) 08/10/16 19:15 Urine Blood Mod (Negative) 08/10/16 19:15 Urine Nitrite Neg (Negative) 08/10/16 19:15 Urine Bilirubin Neg (Negative) 08/10/16 19:15 Urine Urobilinogen < 2.0 mg/dL (<2.0) 08/10/16 19:15 Ur Leukocyte Esterase Neg (Negative) 08/10/16 19:15 Urine WBC (Auto) 1.0 /HPF (0.0-6.0) 08/10/16 19:15 Urine RBC (Auto) 1.0 /HPF (0.0-6.0) 08/10/16 19:15 Plasma/Serum Alcohol 0.04 gm% (0-0.07) 08/10/16 15:08
[2016-08-19] MEDS: FOLVITE PO SCH (11:42)
[2016-08-19] MEDS: ASPIRIN PO SCH (11:42)
[2016-08-19] MEDS: PLAVIX PO SCH (11:42)
[2016-08-19] MEDS: LIBRIUM PO SCH ×2 (11:43→21:32)
[2016-08-19] MEDS: VITAMIN B-1 PO SCH (11:43)
[2016-08-19] MEDS: PROTONIX PO SCH (11:44)
[2016-08-19] MEDS: K-DUR PO SCH (11:44)
[2016-08-19] MEDS: VIREAD PO SCH (11:45)
[2016-08-19] MEDS: KALETRA PO SCH ×2 (11:45→21:31)
[2016-08-19] MEDS: EMTRIVA PO SCH (11:46)
[2016-08-19] MEDS: HCTZ PO SCH (11:46)
[2016-08-19] MEDS: LOPRESSOR PO SCH ×2 (11:47→21:37)
[2016-08-19] MEDS: PROCARDIA XL PO SCH ×2 (11:48→21:31)
[2016-08-19] MEDS: ZESTRIL PO SCH (11:49)
[2016-08-19] MEDS: NORCO 10/325 PO PRN (18:43)
[2016-08-19] MEDS: ZOCOR PO SCH (21:32)
[2016-08-19] MEDS: REMERON PO SCH (21:33)
[2016-08-20] MEDS: PLAVIX PO SCH (09:06)
[2016-08-20] MEDS: K-DUR PO SCH (09:06)
[2016-08-20] MEDS: ASPIRIN PO SCH (09:06)
[2016-08-20] MEDS: KALETRA PO SCH (09:06)
[2016-08-20] MEDS: FOLVITE PO SCH (09:06)
[2016-08-20] MEDS: VITAMIN B-1 PO SCH (09:06)
[2016-08-20] MEDS: PROTONIX PO SCH (09:06)
[2016-08-20] MEDS: EMTRIVA PO SCH (09:06)
[2016-08-20] MEDS: LIBRIUM PO SCH (09:06)
[2016-08-20] MEDS: VIREAD PO SCH (09:09)
[2016-08-20] MEDS: HCTZ PO SCH (09:12)
[2016-08-20] MEDS: LOPRESSOR PO SCH (09:12)
[2016-08-20] MEDS: PROCARDIA XL PO SCH (09:12)
[2016-08-20] MEDS: ZESTRIL PO SCH (09:13)
--- NOTE | 2016-08-20 10:11 | Progress Note ---
Subjective - Reason for Consult Consult date: 08/20/16 Reason for consult: Psychiatry Follow-up - Chief Complaint Chief complaint: "I want help with my drinking" 50-year-old AA male presenting with a chief complaint of Etoh Withdrawal. Today patient is calm and cooperative during assessment. He states that he "really' want help with his drinking. He stated that he feel depressed because of the relationship he has with his current girlfriend. He stated, "When I am alone and feel down, I start drinking." He denies SI/HI's, AVH's, or a poor appetite. He stated that he didn't sleep well last night because he was thinking about his future. He denies any withdrawal symptoms. During assessment patient was sitting in chair with no DT's noted. Per RN note, patient has appropriate with no falls or aggression. Mental Status Exam - Vital signs Last Vital Signs Temp 98.9 F 08/20/16 07:00 Pulse 70 08/20/16 07:00 Resp 20 08/20/16 07:00 BP 108/67 08/20/16 07:00 Pulse Ox 97 08/20/16 07:00 - Exam Narrative exam: MSE: Appearance: calm, cooperative Behavior: good eye contact Speech: regular rate and tone Mood: "I feel better" Affect: flat Thought Process: linear Thought Content: denies SI/HI's and AVH's Cognition: A/Ox3 Insight: fair Judgment: fair Assessment and Plan Impression: 50-year-old AA male presenting with a chief complaint of Etoh Withdrawal. Today patient is calm and cooperative during assessment. He states that he "really' want help with his drinking. He stated that he feel depressed because of the relationship he has with his current girlfriend. He stated, " When I am alone and feel down, I start drinking." Patient denies SI/HI's and AVH 's. No DT's noted on assessment. No Ativan IV given since 08/16/16. Recommendation: Rescind 1013. Delirium seems to be under control, taper Librium. Once medically cleared patient can can follow up with rehab services for alcoholism. [employer] involvement, patient is currently homeless. Generalized coping skills discussed with patient. Patient will be given outpatient referral information for alcohol abuse treatment in his local area.
[2016-08-20] MEDS: NORCO 10/325 PO PRN (10:15)
--- NOTE | 2016-08-20 12:18 | Discharge Summary ---
Providers - Providers Date of Admission: 08/10/16 16:41 Date of discharge: 08/20/16 Attending physician: EMMA NGUYEN 08/13/16 10:24 Consult to Mental Health [CONS] Urgent Reason For Exam: Mental Health Eval. for poly substance resources. Place consult to:: Charan Notified:: Yes Primary care physician: [employer] Hospitalization Condition: Fair Disposition: DISCHARGED TO HOME OR SELFCARE Exam - Constitutional Vitals: Temp Pulse Resp BP Pulse Ox 98.9 F 70 20 108/67 97 08/20/16 07:00 08/20/16 07:00 08/20/16 07:00 08/20/16 07:00 08/20/16 07:00 General appearance: Present: no acute distress - EENT Eyes: Present: PERRL ENT: hearing intact, clear oral mucosa - Neck Neck: Present: supple, normal ROM - Respiratory Respiratory: bilateral: CTA - Cardiovascular Rhythm: regular Heart Sounds: Present: S1 & S2. Absent: gallop, systolic murmur, diastolic murmur - Extremities Extremities: no ischemia, pulses intact, pulses symmetrical, normal color - Abdominal General gastrointestinal: Present: soft, non-tender, tender, non-distended Male genitourinary: Present: deferred - Rectal Rectal Exam: deferred - Integumentary Integumentary: Present: clear, warm, dry - Musculoskeletal Musculoskeletal: strength equal bilaterally - Psychiatric Psychiatric: appropriate mood/affect - Neurologic Neurologic: moves all extremities Plan Activity: advance as tolerated Diet: low fat, low cholesterol, low salt Special Instructions: record daily BP diary Follow up with: PRIMARY CARE,MD [Primary Care Provider] - 3-5 Days Prescriptions: Aspirin [Aspirin TAB] 325 mg PO QDAY #30 tablet Clopidogrel [Plavix] 75 mg PO QDAY #30 tablet Lisinopril [Zestril TAB] 20 mg PO QDAY #30 tablet Lopinavir/Ritonavir [Kaletra 200-50 mg] 1 each PO BID #60 tablet Metoprolol [Lopressor TAB] 12.5 mg PO BID #60 tablet Mirtazapine [Remeron] 45 mg PO QHS #30 tablet Pravastatin Sodium [Pravastatin] 10 mg PO QHS #30 tablet Quetiapine Fumarate [SEROquel XR] 400 mg PO HS #30 tab.er.24h
[2016-08-20 15:56] VITALS: BP 110/74
== END 2016-08-20 17:45 | disposition home or self-care (01) | DRG 896 ==
LOC: ED 13:27 → 3A 16:41
PROVIDERS: ADMIT Internal Medicine; ATTEND Family Medicine
DX: F10.239 Alcohol dependence with withdrawal, unspecified (principal); B20 Human immunodeficiency virus [HIV] disease; G93.41 Metabolic encephalopathy; E87.2 Acidosis; I10 Essential (primary) hypertension; F17.200 Nicotine dependence, unspecified, uncomplicated; D69.6 Thrombocytopenia, unspecified; I95.9 Hypotension, unspecified; Z88.8 Allergy status to other drugs, medicaments and biological substances; Z79.82 Long term (current) use of aspirin; Z93.0 Tracheostomy status
CPT/HCPCS: 36415; 80048; 80074; 80320; 81001; 82140; 82150; 82550; 82553; 82962; 83690; 83735; 84132; 84484; 85025; 85027; 85610; 85730; 93005; 93010; 96365; 96366; 96375; 99406; G0480; J0360; J2060; J3411; J3475; J7030

== ENCOUNTER 2017-03-28 15:51 | Emergency (ER) | payer MEDICARE ==
[2017-03-28 17:33] LABS: Hematocrit 33.1 % (35.5-45.6); Hemoglobin 10.8 gm/dl (11.8-15.2); Mean Corpuscular HGB Conc 33 % (32-34); Mean Corpuscular Volume 79 fl (84-94); Platelet Count 236 K/mm3 (140-440); Red Blood Count 4.21 M/mm3 (3.65-5.03); White Blood Count 6.7 K/mm3 (4.5-11.0)
[2017-03-28 17:34] LABS: Mean Corpuscular Hemoglobin 26 pg (28-32); Red Cell Distribution Width 20.3 % (13.2-15.2)
[2017-03-28 17:53] LABS: Anion Gap 17 mmol/L; BUN/Creatinine Ratio 5; Blood Urea Nitrogen 4 mg/dL (9-20); Calcium 8.3 mg/dL (8.4-10.2); Carbon Dioxide 25 mmol/L (22-30); Chloride 105.1 mmol/L (98-107); Glucose 77 mg/dL (75-100); Sodium 144 mmol/L (137-145)
[2017-03-28 18:43] LABS: Basophils % (Manual) 0 % (0.0-1.8); Blastocytes % (Manual) 0 %; Eosinophils % (Manual) 0 % (0.0-4.3)
[2017-03-28 18:44] LABS: Diff Status Complete; Elliptocytes Few; Platelet Clumps Rare; Platelet Estimate Consistent w Auto; Poikilocytosis Few; Target Cells 1+
--- NOTE | 2017-03-29 07:20 | XRay Report ---
ROUTINE CHEST, TWO VIEWS: HISTORY: Shortness of breath. The trachea, heart, mediastinal contour, lung oliver and bony thorax are unremarkable. No significant change since 06/05/15. IMPRESSION: Unremarkable chest x-ray.
[2017-03-29] MEDS ORDERED: ZOFRAN ODT PO ONE (07:42)
[2017-03-29] MEDS ORDERED: MORPHINE IM ONE (07:42)
[2017-03-29 09:05] VITALS: BP 144/84
--- NOTE | 2017-03-29 09:39 | Emergency Department Report ---
HPI - General Chief Complaint: Dyspnea/Respdistress Time Seen by Provider: 03/29/17 06:47 - HPI HPI: The patient's 51-year-old male who presents for evaluation of back pain. The patient reports back pain suggesting morning, 10 in severity, aching in quality, worse with movement of the lower back or ambulation. He states that his pain is consistent with previous episodes of back pain. He also complains of mild aching in quality midsternal chest pain for the past one day, currently resolved. The patient denies blunt trauma to the back, fall, fever, chills, night sweats, saddle anesthesia, paresthesias, numbness or tingling in the legs , leg weakness, urine or bowel incontinence or retention, difficulty ambulating , or other focal neurological deficits. ED Past Medical Hx - Past Medical History Previous Medical History?: Yes Hx Hypertension: Yes Hx Congestive Heart Failure: No Hx Diabetes: No Hx Asthma: No Hx COPD: No Hx HIV: Yes - Surgical History Past Surgical History?: Yes Hx Coronary Stent: Yes Additional Surgical History: tracheostomy- secondary to "throat infection/couldn 't breathe" - Social History Smoking Status: Current Every Day Smoker Substance Use Type: None - Medications Home Medications: Home Medications Medication Instructions Recorded Confirmed Last Taken Type Emtricitabin/Tenofovir [TRUVADA 1 tab PO QDAY 10/01/13 08/10/16 3 Days Ago History 200-300 mg] ~06/02/15 Nitroglycerin [Nitrostat] 0.4 mg SL .Q5MIN PRN #90 tab 10/07/13 08/10/16 3 Weeks Ago Rx ~05/15/15 HYDROcodone/APAP 10-325 [[place] 1 each PO Q6HR PRN #16 tablet 04/17/14 08/10/16 3 Days Ago Rx 10-325 mg TAB] ~06/02/15 Ondansetron [Zofran ODT TAB] 4 mg SL Q6H PRN #8 tab.rapdis 04/17/14 08/10/16 3 Weeks Ago Rx ~05/15/15 Aspirin [Aspirin TAB] 325 mg PO QDAY #30 tablet 08/20/16 Unknown Rx Clopidogrel [Plavix] 75 mg PO QDAY #30 tablet 08/20/16 Unknown Rx Lisinopril [Zestril TAB] 20 mg PO QDAY #30 tablet 08/20/16 Unknown Rx Lopinavir/Ritonavir [Kaletra 1 each PO BID #60 tablet 08/20/16 Unknown Rx 200-50 mg] Metoprolol [Lopressor TAB] 12.5 mg PO BID #60 tablet 08/20/16 Unknown Rx Mirtazapine [Remeron] 45 mg PO QHS #30 tablet 08/20/16 Unknown Rx Pravastatin Sodium [Pravastatin] 10 mg PO QHS #30 tablet 08/20/16 Unknown Rx Quetiapine Fumarate [SEROquel XR] 400 mg PO HS #30 tab.er.24h 08/20/16 Unknown Rx traMADol [Ultram 50 MG tab] 50 mg PO Q6HR PRN #15 tablet 03/29/17 Unknown Rx ED Review of Systems ROS: Stated complaint: BACK PAIN Other details as noted in HPI Constitutional: denies: fever ENT: denies: throat or neck pain Respiratory: denies: cough, shortness of breath Cardiovascular: denies: chest pain Endocrine: denies unexplained weight loss or gain Gastrointestinal: denies: abdominal pain, nausea Genitourinary: denies: dysuria Musculoskeletal: reports back pain denies: leg swelling Skin: denies: rash Neurological: denies: headache Hematological/Lymphatic: denies: easy bleeding or easy bruising Psych: denies sadness or hopelessness Physical Exam - Physical Exam Vital Signs: Vital Signs 03/28/17 03/29/17 03/29/17 16:35 03:27 03:29 Temperature 99.4 F 99.3 F Pulse Rate 84 72 96 H Respiratory 16 18 16 Rate Blood Pressure 126/71 Blood Pressure 144/80 [Left] O2 Sat by Pulse 97 97 98 Oximetry 03/29/17 03/29/17 03/29/17 03:31 03:45 04:00 Temperature Pulse Rate 98 H 96 H 85 Respiratory 14 15 15 Rate Blood Pressure 144/80 144/80 132/76 Blood Pressure [Left] O2 Sat by Pulse 100 100 98 Oximetry 03/29/17 03/29/17 03/29/17 04:15 04:31 04:45 Temperature Pulse Rate 93 H 94 H 83 Respiratory 19 11 L 16 Rate Blood Pressure 144/80 144/80 132/76 Blood Pressure [Left] O2 Sat by Pulse 99 99 95 Oximetry 12/05/1503/29/17 03/29/17 05:00 05:15 05:30 Temperature Pulse Rate 77 79 81 Respiratory 18 15 14 Rate Blood Pressure 128/71 132/76 128/71 Blood Pressure [Left] O2 Sat by Pulse 100 96 97 Oximetry 03/29/17 03/29/17 03/29/17 05:45 06:00 06:15 Temperature Pulse Rate 83 78 76 Respiratory 15 18 14 Rate Blood Pressure 128/71 143/80 128/71 Blood Pressure [Left] O2 Sat by Pulse 97 95 99 Oximetry 03/29/17 03/29/17 03/29/17 06:31 06:45 07:00 Temperature Pulse Rate 81 72 73 Respiratory 15 15 15 Rate Blood Pressure 128/71 143/80 144/84 Blood Pressure [Left] O2 Sat by Pulse 99 99 98 Oximetry 03/29/17 03/29/17 03/29/17 07:10 07:15 07:31 Temperature 98.7 F Pulse Rate 79 75 Respiratory 11 L 12 Rate Blood Pressure 143/80 143/80 Blood Pressure [Left] O2 Sat by Pulse 98 99 Oximetry Physical Exam: General: well-nourished, well-developed, no acute distress Head: Normocephalic, atraumatic Eyes: normal sclera ENT: Mucous membranes are pink and moist Neck: trachea midline, neck supple, No neck stiffness, no cervical adenopathy Respiratory: Breath sounds equal bilaterally, no wheezing, rales, or rhonchi Cardio: S1 and S2 present, no murmurs, rubs, gallops, capillary refill is brisk Abdomen: Normoactive bowel sounds, soft abdomen, no rigidity, no guarding or rebound tenderness Chest WALL/Back: Tenderness to palpation present to bilateral lumbar paraspinal musculature, no midline pain, normal active range of motion at the hip intact, no spinous step-off or obvious deformity, ipsi-lateral and contralateral straight leg raise tests are negative. On extremity testing, compartments are soft and pliable, no obvious gross motor strength deficit, 5+ motor strength, including extension of the great toe bilaterally, no muscular atrophy, spasticity, fasciculations, or clonus, no obvious gross sensation deficit including web space between 1st and 2nd toes, reflexes 2+ & symmetric on DTR testing at the knee and ankle joints, distal pulses intact. Musc: No pitting edema Skin: No rash Neuro: no facial drooping, normal speech Psych: Normal affect ED Course Vital Signs 03/28/17 03/29/17 03/29/17 16:35 03:27 03:29 Temperature 99.4 F 99.3 F Pulse Rate 84 72 96 H Respiratory 16 18 16 Rate Blood Pressure 126/71 Blood Pressure 144/80 [Left] O2 Sat by Pulse 97 97 98 Oximetry 03/29/17 03/29/17 03/29/17 03:31 03:45 04:00 Temperature Pulse Rate 98 H 96 H 85 Respiratory 14 15 15 Rate Blood Pressure 144/80 144/80 132/76 Blood Pressure [Left] O2 Sat by Pulse 100 100 98 Oximetry 03/29/17 03/29/17 03/29/17 04:15 04:31 04:45 Temperature Pulse Rate 93 H 94 H 83 Respiratory 19 11 L 16 Rate Blood Pressure 144/80 144/80 132/76 Blood Pressure [Left] O2 Sat by Pulse 99 99 95 Oximetry 03/29/17 03/29/17 03/29/17 05:00 05:15 05:30 Temperature Pulse Rate 77 79 81 Respiratory 18 15 14 Rate Blood Pressure 128/71 132/76 128/71 Blood Pressure [Left] O2 Sat by Pulse 100 96 97 Oximetry 03/29/17 03/29/17 03/29/17 05:45 06:00 06:15 Temperature Pulse Rate 83 78 76 Respiratory 15 18 14 Rate Blood Pressure 128/71 143/80 128/71 Blood Pressure [Left] O2 Sat by Pulse 97 95 99 Oximetry 03/29/17 03/29/17 03/29/17 06:31 06:45 07:00 Temperature Pulse Rate 81 72 73 Respiratory 15 15 15 Rate Blood Pressure 128/71 143/80 144/84 Blood Pressure [Left] O2 Sat by Pulse 99 99 98 Oximetry 03/29/17 03/29/17 03/29/17 07:10 07:15 07:31 Temperature 98.7 F Pulse Rate 79 75 Respiratory 11 L 12 Rate Blood Pressure 143/80 143/80 Blood Pressure [Left] O2 Sat by Pulse 98 99 Oximetry ED Medical Decision Making - Lab Data Result diagrams: 03/28/17 16:49 03/28/17 16:49 - Medical Decision Making The patient was seen and examined by myself. The patient is placed on a studio operations engineer in charge and continuous pulse ox. On initial evaluation, the patient was found to be in no distress. No findings on exam concerning for cauda equina syndrome, spinal stenosis, or epidural abscess. As the patient has no midline tenderness on exam, no neuro deficits, and no findings concerning for emergent etiology of their back pain, imaging will not be obtained at this time. EKG was negative for findings suggestive of acute cardiac infarct. Labs and imaging are obtained. The patient is given IM pain medicine. Chest x-ray is negative for pneumothorax, focal consolidation, pulmonary vascular congestion, pleural effusion, or other obvious acute cardiopulmonary disease process. Lab results were non-concerning including levels of troponin, WBC, hemoglobin, hematocrit, electrolytes, renal function. The patient was reevaluated and reported that their symptoms were markedly improved. As the patient has a YESENIA risk score less than 2, and a well's score less than 2, the patient is at low risk of ACS or pulmonary emboli etiology of their symptoms. The patient is stable for discharge with outpatient follow-up. The patient is given follow-up and return instructions. The patient expressed understanding and agreed with the plan. The patient is discharged in stable condition. Critical care attestation.: If time is entered above; I have spent that time in minutes in the direct care of this critically ill patient, excluding procedure time. ED Disposition Clinical Impression: Acute chest pain Acute low back pain without sciatica Qualifiers: Back pain laterality: bilateral Qualified Code(s): M54.5 - Low back pain Disposition: - TO HOME OR SELFCARE Is pt being admited?: No Does the pt Need Aspirin: No Condition: Stable Instructions: Chest Pain (ED), Low Back Strain (ED), Back Pain (ED) Referrals: PRIMARY CARE, [Primary Care Provider] - 3-5 Days Time of Disposition: 08:27
== END 2017-03-29 09:07 | disposition home or self-care (01) ==
LOC: ED 15:51
DX: M54.5 Low back pain (principal); R07.2 Precordial pain; I10 Essential (primary) hypertension; F17.200 Nicotine dependence, unspecified, uncomplicated; Z21 Asymptomatic human immunodeficiency virus [HIV] infection status; Z88.2 Allergy status to sulfonamides; Z88.8 Allergy status to other drugs, medicaments and biological substances
CPT/HCPCS: 36415; 71020; 80048; 84484; 85007; 85025; 87040; 93005; 93010; 96372; 99285; J2270; Q0162

== ENCOUNTER 2017-10-08 19:22 | Emergency (ER) | payer MEDICARE ==
[2017-10-08 21:38] LABS: Bilirubin,Urine NEG (Negative); Blood,Urine NEG (Negative); Color,Urine Yellow (Yellow); Protein,Urine <15 mg/dL mg/dL (Negative); Urobilinogen,Urine < 2.0 mg/dL (<2.0)
[2017-10-08 22:14] LABS: Hematocrit 30.7 % (35.5-45.6); Hemoglobin 9.5 gm/dl (11.8-15.2); Mean Corpuscular HGB Conc 31 % (32-34); Mean Corpuscular Volume 83 fl (84-94); Platelet Count 270 K/mm3 (140-440); Red Blood Count 3.72 M/mm3 (3.65-5.03)
[2017-10-08 22:23] LABS: Mean Corpuscular Hemoglobin 26 pg (28-32)
[2017-10-08 22:27] LABS: Alanine Aminotransferase 40 units/L (7-56); Albumin 3.2 g/dL (3.9-5); BUN/Creatinine Ratio 9; Blood Urea Nitrogen 7 mg/dL (9-20); Calcium 8.5 mg/dL (8.4-10.2); Hemolysis Index 5
[2017-10-08] MEDS ORDERED: PERCOCET 5/325 ONE (23:33)
[2017-10-08] MEDS ORDERED: PERCOCET 5/325 PO ONE (23:37)
[2017-10-08 23:40] LABS: Total Cells Counted 100
[2017-10-08 23:42] LABS: Hypochromasia 1+; Platelet Estimate Consistent w Auto; Target Cells Few
--- NOTE | 2017-10-09 01:28 | XRay Report ---
FINAL REPORT EXAM: XR SPINE LUMBOSACRAL 2-3V HISTORY: back pain COMPARISON: None available. FINDINGS: Two views of the lumbar spine obtained. Mild to moderate superior plate compression deformity L4 level. Depression of the endplate by 4-5 millimeters. Remaining lumbar vertebral body heights are preserved. Mild to moderate loss of disc height and mild endplate osteophyte L3-L4 through L5-S1 levels. Mild facet changes L5-S1 level. No spondylolisthesis. IMPRESSION: [id number] degenerative changes of the mid to lower lumbar spine. Mild to moderate superior plate compression deformity L4 level of uncertain age by plain film but is suspected to be chronic.
--- NOTE | 2017-10-09 01:47 | Emergency Department Report ---
ED General Adult HPI - General Chief complaint: Abdominal Pain Stated complaint: HERNIA ON BACK AND STOMACH Source: patient Mode of arrival: Ambulatory Limitations: No Limitations - History of Present Illness Initial comments: 51-year-old -Polish male with a past medical history of immune compromise comes in today for stating he has intermittent abdominal pain. Patient reports that he has a hernia in his stomach. Patient also complains of back pain that he's had for 3 days. Patient reports he's had back pain in the past but has improved but now has come back. Patient denies any urinary incontinence, no hematuria, no bowel incontinence. 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 Patient reports he has not been seen by any provider for those issues. Patient reports that he is able to reduce his hernia appreciated in but when he strains or lifts anything heavy pops out. Patient is followed by [facility]. -: days(s) (3 for back pain ), month(s) (for abdominal hernia) Location: back, abdomen Severity scale (0 -10): 5 Consistency: intermittent Improves with: rest Worsens with: movement (the thing heavy objects) Associated Symptoms: denies other symptoms. denies: nausea/vomiting Treatments Prior to Arrival: none - Related Data Home Medications Medication Instructions Recorded Confirmed Last Taken Emtricitabin/Tenofovir [TRUVADA 1 tab PO QDAY 10/01/13 09/28/17 09/26/17 09:00 200-300 mg] Previous Rx's Medication Instructions Recorded Last Taken Type Nitroglycerin [Nitrostat] 0.4 mg SL .Q5MIN PRN #90 tab 10/07/13 09/26/17 21:00 Rx HYDROcodone/APAP 10-325 [[place] 1 each PO Q6HR PRN #16 tablet 04/17/14 3 Days Ago Rx 10-325 mg TAB] ~06/02/15 Ondansetron [Zofran ODT TAB] 4 mg SL Q6H PRN #8 tab.rapdis 04/17/14 09/26/17 21: 00 Rx Aspirin [Aspirin TAB] 325 mg PO QDAY #30 tablet 08/20/16 09/26/17 21:00 Rx Clopidogrel [Plavix] 75 mg PO QDAY #30 tablet 08/20/16 09/26/17 21:00 Rx Lopinavir/Ritonavir [Kal[place] 1 each PO BID #60 tablet 08/20/16 09/26/17 09:00 Rx 200-50 mg] Metoprolol [Lopressor TAB] 12.5 mg PO BID #60 tablet 08/20/16 09/26/17 21:00 Rx Mirtazapine [Remeron] 45 mg PO QHS #30 tablet 08/20/16 09/26/17 21:00 Rx Pravastatin Sodium [Pravastatin] 10 mg PO QHS #30 tablet 08/20/16 09/26/17 21: 00 Rx Quetiapine Fumarate [SEROquel XR] 400 mg PO HS #30 tab.er.24h 08/20/16 09/26/17 21:00 Rx traMADol [Ultram 50 MG tab] 50 mg PO Q6HR PRN #15 tablet 03/29/17 Unknown Rx Ciprofloxacin HCl [Cipro] 500 mg PO BID #14 tablet 09/30/17 Unknown Rx Lisinopril [Zestril TAB] 20 mg PO QDAY #30 tablet 10/09/17 Unknown Rx traMADol [Ultram 50 MG tab] 50 mg PO Q6HR PRN #20 tablet 10/09/17 Unknown Rx Allergies Allergy/AdvReac Type Severity Reaction Status Date / Time sulfamethoxazole AdvReac Swelling Verified 07/13/16 08:19 [From Bactrim] trimethoprim [From Bactrim] AdvReac Swelling Verified 07/13/16 08:19 ED Review of Systems ROS: Stated complaint: HERNIA ON BACK AND STOMACH Other details as noted in HPI Constitutional: denies: chills, fever Eyes: denies: eye pain, eye discharge, vision change ENT: denies: ear pain, throat pain Respiratory: denies: cough, shortness of breath, wheezing Cardiovascular: denies: chest pain, palpitations Gastrointestinal: abdominal pain (middle of stomach with protrusion). denies: nausea, vomiting, diarrhea, constipation, hematochezia Genitourinary: other (no urinary incontinence, no fecal incontinence) Musculoskeletal: back pain Skin: denies: rash, lesions ED Past Medical Hx - Past Medical History Hx Hypertension: Yes Hx Congestive Heart Failure: No Hx Diabetes: No Hx of Cancer: No Hx Asthma: Yes Hx COPD: No Hx HIV: Yes Additional medical history: 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 - Surgical History Hx Coronary Stent: Yes (2 STENTS) Additional Surgical History: tracheostomy- secondary to "throat infection/couldn 't breathe" - Social History Smoking Status: Current Every Day Smoker Substance Use Type: None - Medications Home Medications: Home Medications Medication Instructions Recorded Confirmed Last Taken Type Emtricitabin/Tenofovir [TRUVADA 1 tab PO QDAY 10/01/13 09/28/17 09/26/17 09:00 History 200-300 mg] Nitroglycerin [Nitrostat] 0.4 mg SL .Q5MIN PRN #90 tab 10/07/13 09/28/17 21:00 Rx HYDROcodone/APAP 10-325 [[place] 1 each PO Q6HR PRN #16 tablet 04/17/14 09/28/17 3 Days Ago Rx 10-325 mg TAB] ~06/02/15 Ondansetron [Zofran ODT TAB] 4 mg SL Q6H PRN #8 tab.rapdis 04/17/14 09/28/17 21:00 Rx Aspirin [Aspirin TAB] 325 mg PO QDAY #30 tablet 08/20/16 09/28/17 09/26/17 21: 00 Rx Clopidogrel [Plavix] 75 mg PO QDAY #30 tablet 08/20/16 09/28/17 09/26/17 21:00 Rx Lopinavir/Ritonavir [[place] 1 each PO BID #60 tablet 08/20/16 09/28/17 09:00 Rx 200-50 mg] Metoprolol [Lopressor TAB] 12.5 mg PO BID #60 tablet 08/20/16 09/28/17 09/26/17 21:00 Rx Mirtazapine [Remeron] 45 mg PO QHS #30 tablet 08/20/16 09/28/17 09/26/17 21:00 Rx Pravastatin Sodium [Pravastatin] 10 mg PO QHS #30 tablet 08/20/16 09/28/1709/26 21:00 Rx Quetiapine Fumarate [SEROquel XR] 400 mg PO HS #30 tab.er.24h 08/20/16 09/28/17 09/26/17 21:00 Rx traMADol [Ultram 50 MG tab] 50 mg PO Q6HR PRN #15 tablet 03/29/17 09/28/17 Unknown Rx Ciprofloxacin HCl [Cipro] 500 mg PO BID #14 tablet 09/30/17 Unknown Rx Lisinopril [Zestril TAB] 20 mg PO QDAY #30 tablet 10/09/17 Unknown Rx traMADol [Ultram 50 MG tab] 50 mg PO Q6HR PRN #20 tablet 10/09/17 Unknown Rx ED Physical Exam - General Limitations: No Limitations General appearance: alert, in no apparent distress - Head Head exam: Present: atraumatic, normocephalic - Eye Eye exam: Present: normal appearance - ENT ENT exam: Present: mucous membranes moist - Respiratory Respiratory exam: Present: normal lung sounds bilaterally. Absent: respiratory distress - Cardiovascular Cardiovascular Exam: Present: regular rate, normal rhythm. Absent: systolic murmur, diastolic murmur, rubs, gallop - GI/Abdominal GI/Abdominal exam: Present: soft, tenderness (with deep palpation of the reproducible ventral hernia), normal bowel sounds. Absent: distended, guarding , rebound, rigid - Extremities Exam Extremities exam: Present: normal inspection, full ROM. Absent: tenderness - Back Exam Back exam: Present: normal inspection, full ROM. Absent: tenderness, CVA tenderness (R), CVA tenderness (L), muscle spasm, paraspinal tenderness, vertebral tenderness - Neurological Exam Neurological exam: Present: alert, oriented X3 - Psychiatric Psychiatric exam: Present: normal affect, normal mood - Skin Skin exam: Present: warm, dry, intact, normal color. Absent: rash ED Course Vital Signs 10/08/17 21:02 Temperature 98.3 F Pulse Rate 81 Respiratory 16 Rate Blood Pressure 132/80 O2 Sat by Pulse 100 Oximetry - Reevaluation(s) Reevaluation #1: 10/09/17 01:49 Patient reports that the Percocet has helped with this back pain as well as his abdominal pain. ED Medical Decision Making - Lab Data Result diagrams: 10/08/17 21:57 10/08/17 21:57 - Radiology Data Radiology results: report reviewed X-ray of lumbar sacral 2-3 view. Impression: Mouth to moderate degenerative changes of the mid to lower lumbar spine. Mouth to moderate superior plate compression deformity of L4 level of uncertain age by plain film but is suspected to be chronic. - Medical Decision Making Patient has been evaluated by this provider fast track. X-ray of back order which shows degenerative changes. CBC shows some mild anemia which could be due to his medication. CMP shows a mild low potassium of 3.5 encouraged patient to increase potassium by eating bananas apricots. Hernia we'll refer patient to surgery for evaluation. Chronic back pain we'll refer patient to orthopedist. Discussed the patient to follow up with his primary care provider. Would discharge patient on tramadol. Critical care attestation.: If time is entered above; I have spent that time in minutes in the direct care of this critically ill patient, excluding procedure time. ED Disposition Clinical Impression: Hypokalemia, HTN, goal below 130/80 Abdominal hernia Qualifiers: Hernia type: ventral Obstruction and gangrene presence: without obstruction or gangrene Qualified Code(s): K43.9 - Ventral hernia without obstruction or gangrene Degenerative disc disease Qualifiers: Spinal region: lumbar Qualified Code(s): M51.36 - Other intervertebral disc degeneration, lumbar region Anemia Qualifiers: Anemia type: unspecified type Qualified Code(s): D64.9 - Anemia, unspecified Disposition: DC-01 TO HOME OR SELFCARE Is pt being admited?: No Does the pt Need Aspirin: No Condition: Stable Instructions: Hypertension (ED) Additional Instructions: Please take pain medication as prescribed. Please follow up with gastroenterology, general surgery, your provider. Prescriptions: Lisinopril [Zestril TAB] 20 mg PO QDAY #30 tablet traMADol [Ultram 50 MG tab] 50 mg PO Q6HR PRN #20 tablet PRN Reason: Pain Referrals: PRIMARY MD ELLIOT [Primary Care Provider] - 3-5 Days [facility] [Provider Group] - 3-5 Days ESTELA ALMANZAR MD [Staff Physician] - 3-5 Days MAXIMUS GARZA DO [Staff Physician] - 3-5 Days ED DESOUZA MD [Staff Physician] - 3-5 Days your, provider [Other] - 3-5 Days Forms: Work/School Release Form(ED)
[2017-10-09 02:16] VITALS: BP 129/76
== END 2017-10-09 02:16 | disposition home or self-care (01) ==
LOC: ED 19:22
DX: E87.6 Hypokalemia (principal); I10 Essential (primary) hypertension; M51.36 Other intervertebral disc degeneration, lumbar region; D64.9 Anemia, unspecified; K43.9 Ventral hernia without obstruction or gangrene; J45.909 Unspecified asthma, uncomplicated; F17.200 Nicotine dependence, unspecified, uncomplicated; Z95.5 Presence of coronary angioplasty implant and graft; Z88.2 Allergy status to sulfonamides; Z88.8 Allergy status to other drugs, medicaments and biological substances; Z79.82 Long term (current) use of aspirin
CPT/HCPCS: 36415; 72100; 80053; 81001; 85007; 85025

== ENCOUNTER 2017-11-26 06:22 | Day surgery (SDC) | payer MEDICARE ==
[~2017-11-26 06:22] MED LIST: ANCEF/STERILE WATER 2 GM/20 ML 2 GM/20 ML SYRINGE IV NR; LACTATED RINGERS 1,000 ML IV SCH; VERSED IV NR
[2017-11-26] MEDS ORDERED: NEURONTIN PO SCH (06:30)
[2017-11-26] MEDS ORDERED: NACL BACTERIOSTATIC INFILTRATI ONE (06:42)
[2017-11-26] MEDS ORDERED: MARCAINE 0.5% 30 ML INFILTRATI ONE (07:25)
[2017-11-26] MEDS ORDERED: XYLOCAINE 1% 20 mL ONE (07:25)
[2017-11-26 07:28] LABS: Basophils % (Auto) 0.6 % (0.0-1.8); Eosinophils # (Auto) 0.2 K/mm3 (0.0-0.4); Eosinophils % (Auto) 3.3 % (0.0-4.3); Hematocrit 39.3 % (35.5-45.6); Hemoglobin 12.7 gm/dl (11.8-15.2); Lymphocytes # (Auto) 3.2 K/mm3 (1.2-5.4); Lymphocytes % (Auto) 44.4 % (13.4-35.0); Mean Corpuscular HGB Conc 32 % (32-34); Mean Corpuscular Volume 75 fl (84-94); Monocytes # (Auto) 0.4 K/mm3 (0.0-0.8); Platelet Count 220 K/mm3 (140-440); Red Blood Count 5.25 M/mm3 (3.65-5.03); Red Cell Distribution Width 13.8 % (13.2-15.2)
[2017-11-26 07:30] LABS: Mean Corpuscular Hemoglobin 24 pg (28-32)
[2017-11-26] MEDS ORDERED: XYLOCAINE CARDIAC IV ONE ×2 (07:35→07:36)
[2017-11-26] MEDS ORDERED: DILAUDID ONE (07:36)
[2017-11-26] MEDS ORDERED: XYLOCAINE MPF 2% ONE (07:36)
[2017-11-26] MEDS ORDERED: DIPRIVAN 10 MG/ML IV ONE (07:36)
[2017-11-26] MEDS ORDERED: ZEMURON IV ONE (07:37)
[2017-11-26] MEDS ORDERED: QUELICIN ONE (07:37)
[2017-11-26 07:43] LABS: Calcium 9.8 mg/dL (8.4-10.2)
[2017-11-26] MEDS ORDERED: XYLOCAINE 1% 20 mL INFILTRATI ONE (08:02)
[2017-11-26] MEDS ORDERED: MARCAINE 0.25% INFILTRATI ONE ×2 (08:02)
[2017-11-26] MEDS ORDERED: ZOFRAN ONE (08:16)
[2017-11-26] MEDS ORDERED: BLOXIVERZ ONE (08:16)
[2017-11-26] MEDS ORDERED: TORADOL ONE (08:16)
[2017-11-26] MEDS ORDERED: DECADRON ONE (08:16)
[2017-11-26] MEDS ORDERED: ROBINUL ONE (08:16)
[2017-11-26] MEDS ORDERED: ZOFRAN IV PRN (08:55)
[2017-11-26] MEDS ORDERED: DILAUDID IV PRN (08:55)
--- NOTE | 2017-11-26 08:56 | Anesthesia Consultation ---
Anesthesia Consult and Med Hx Date of service: 11/26/17 - Airway Anesthetic Teeth Evaluation: Good ROM Head & Neck: Adequate Mental/Hyoid Distance: Adequate Mallampati Class: Class II Intubation Access Assessment: Probably Good - Pulmonary Exam CTA: Yes - Cardiac Exam Cardiac Exam: RRR - Pre-Operative Health Status ASA Pre-Surgery Classification: ASA3 Proposed Anesthetic Plan: General - Pulmonary Hx Smoking: Yes Hx Asthma: Yes COPD: No Hx Pneumonia: Yes - Cardiovascular System Hx Hypertension: Yes Hx Coronary Artery Disease: Yes - Central Nervous System Hx Psychiatric Problems: Yes - Endocrine Hx End Stage Renal Disease: No - Other Systems Hx Alcohol Use: Yes Hx Cancer: No
--- NOTE | 2017-11-26 08:56 | Anesthesia Day of Surgery ---
Anesthesia Day of Surgery - Day of Surgery Patient Examined: Yes Patient H&P Reviewed: Yes Patient is NPO: Yes
--- NOTE | 2017-11-26 09:04 | Short Stay Summary ---
Short Stay Documentation Date of service: 11/26/17 - History H&P: obtained from office - Allergies and Medications Current Medications: Allergies sulfamethoxazole [From Bactrim] Adverse Reaction (Verified 11/22/17 17:20) Swelling trimethoprim [From Bactrim] Adverse Reaction (Verified 11/22/17 17:20) Swelling Home Medications Medication Instructions Recorded Confirmed Last Taken Type RX: Emtricitabin/Tenofovir 1 tab PO QDAY 10/01/13 11/26/17 11/25/17 09:00 History [TRUVADA 200-300 mg] RX: Nitroglycerin [Nitrostat] 0.4 mg SL .Q5MIN PRN #90 tab 10/07/13 11/22/17 21:00 Rx RX: HYDROcodone/APAP 10-325 [[place] 1 each PO Q6HR PRN #16 tablet 04/17/14 3 Days Ago Rx 10-325 mg TAB] ~06/02/15 RX: Ondansetron [Zofran ODT TAB] 4 mg SL Q6H PRN #8 tab.rapdis 04/17/1411/25/17 09:00 Rx RX: Aspirin [Aspirin TAB] 325 mg PO QDAY #30 tablet 08/20/16 11/26/17 11/19/17 09:00 Rx RX: Clopidogrel [Plavix] 75 mg PO QDAY #30 tablet 08/20/16 11/26/17 11/20/17 09: 00 Rx RX: Lopinavir/Ritonavir [[place] 1 each PO BID #60 tablet 08/20/16 11/26/17 09:00 Rx 200-50 mg] RX: Metoprolol [Lopressor TAB] 12.5 mg PO BID #60 tablet 08/20/16 11/26/1711/25 09:00 Rx RX: Mirtazapine [Remeron] 45 mg PO QHS #30 tablet 08/20/16 11/26/17 11/25/17 09: 00 Rx RX: Pravastatin Sodium 10 mg PO QHS #30 tablet 08/20/16 11/26/17 11/25/17 09:00 Rx [Pravastatin] RX: Lisinopril [Zestril TAB] 20 mg PO QDAY #30 tablet 10/09/17 11/26/17 09:00 Rx Active Medications Gabapentin (Neurontin) 600 mg PO PREOP MICHAEL Last Admin: 11/26/17 07:21 Dose: 600 mg Hydromorphone HCl (Dilaudid) 0.5 mg IV Q10MIN PRN PRN Reason: Pain , Severe (7-10) Cefazolin Sodium (Ancef/Sterile Water 2 Gm/20 Ml) 2 gm in 20 mls @ 80 mls/hr IV PREOP NR; Protocol Stop: 11/26/17 23:59 Lactated Ringer's (Lactated Ringers) 1,000 mls @ 100 mls/hr IV DIRECT MICHAEL Last Admin: 11/26/17 07:22 Dose: 100 mls/hr Midazolam HCl (Versed) 2 mg IV PREOP NR Stop: 11/26/17 23:59 Last Admin: 11/26/17 07:34 Dose: 2 mg Ondansetron HCl (Zofran) 4 mg IV ONCE PRN PRN Reason: Nausea And Vomiting - Physical exam General appearance: no acute distress Integumentary: no rash, no abnormal pigmentation Gastrointestinal: no tenderness, other (ventral hernia) Neurological: Normal speech - Brief post op/procedure progress note Date of procedure: 11/26/17 (Dictation:[id number]) Pre-op diagnosis: Incisional hernia Post-op diagnosis: same Procedure: Open incisional hernia with mesh Anesthesia: GETA Findings: 3cm fascial defect. No bowel contents or attachments in hernia Surgeon: ED DESOUZA Estimated blood loss: minimal (25cc) Pathology: none Condition: stable - Hospital course Hospital course: uneventful hernia repair - Disposition Condition at discharge: Stable Disposition: DC-01 TO HOME OR SELFCARE Short Stay Discharge Plan Activity: no driving until cleared by PCP Diet: regular Wound: open to air, keep clean and dry, other (May shower tomorrow. Pat dry wound. do not peel off glue) Special Instructions: no heavy lifting (or strenuous activity for 6 weeks) Follow up with: LÁZARO SALAZAR MD [Primary Care Provider] - 7 Days ED DESOUZA MD [Staff Physician] - 14 Days Prescriptions: HYDROcodone/ACETAMINOPHEN [Hydrocodon-Acetaminophen 5-325] 2 each PO Q6HR PRN # 30 tablet PRN Reason: Pain , Severe (7-10)
[2017-11-26] MEDS ORDERED: NORCO 5/325 PO PRN (09:29)
[2017-11-26 10:25] VITALS: BP 128/83
--- NOTE | 2017-11-26 11:26 | Operative Report ---
PREOPERATIVE DIAGNOSIS: Incisional hernia. POSTOPERATIVE DIAGNOSIS: Incisional hernia. PROCEDURE: Open incisional hernia repair with mesh. ATTENDING PHYSICIAN: Debra Milton MD ANESTHESIA: General. ESTIMATED BLOOD LOSS: 25 mL. FLUIDS: 1200 mL. FINDINGS: A 3 cm fascial defect in upper midline of the abdominal wall. IMPLANTS: Ventralex 8 cm circular mesh. DRAINS: None. COMPLICATIONS: None. DISPOSITION: Stable, transferred to Recovery Room. INDICATIONS: This is a 52-year-old male, who presented with complaints of a symptomatic painful bulge in the upper portion of the abdomen. He had previously had a feeding tube many years ago and this corresponds to location of his hernia. The patient was assessed to be need for open repair. Procedure, risks, benefits were explained to the patient. Risks included but were not limited to infection, bleeding, pain, injury to surrounding structures, possible recurrence, possible need for further procedures in the future. The patient understood and consented. OPERATIVE NOTE: The patient was brought to the operating room and placed on the table in supine position. After adequate general anesthesia was established, the patient was prepped and draped in the usual sterile fashion. Antibiotics had been administered prior to start of the case. SCDs were in place. Time-out was called. I began by planning out the transverse incision. The ends were anesthetized with a fair amount of local using a combination of 0.5% Marcaine, 1% lidocaine and a small amount of local was put in the planned incision site. Sharp incision was made. Dissection was carried down to the fascia. Hernia sac was encountered along the way. Small opening was made in the hernia sac. There were no contents within it. There was no bowel attached to it. There was no bowel attached to the fascial edges. We continued with the dissection, freeing the hernia sac from the surrounding tissue and from the underside of the fascia. I had a very nice preperitoneal space created. We then examined for any bleeding. Small areas of bleeding were controlled with electrocautery. The hernia sac was left intact and reduced along with preperitoneal fat. We then freed up the fascial edges and once this was done then the Ventralex mesh was inserted. It laid very well using 0 Vicryl sutures. Interrupted sutures were used to close the fascial defect along with taking bites of the strap, the two straps that are attached to the mesh. Excess straps were cut off. Once we were done with this portion wound was thoroughly irrigated. Additional local was injected in the surrounding tissue. A 3-0 Vicryl was used to close the deep tissue with interrupted sutures, 4-0 Monocryl was used to close the skin with a running subcuticular stitch. Skin was cleaned and dried. Dermabond was placed. The patient tolerated procedure well. There were no complications. All counts were correct at the end of the case. I did go to look for family in the waiting area, there was none. JOB# [id number] CELSO/SARAH
== END 2017-11-26 10:30 | disposition home or self-care (01) ==
LOC: OR 06:22
PROVIDERS: ATTEND Surgery
DX: K43.2 Incisional hernia without obstruction or gangrene (principal); I11.0 Hypertensive heart disease with heart failure; I50.9 Heart failure, unspecified; F41.9 Anxiety disorder, unspecified; F32.9 Major depressive disorder, single episode, unspecified; J45.909 Unspecified asthma, uncomplicated; I25.10 Atherosclerotic heart disease of native coronary artery without angina pectoris; F17.210 Nicotine dependence, cigarettes, uncomplicated; Z21 Asymptomatic human immunodeficiency virus [HIV] infection status; Z79.82 Long term (current) use of aspirin; Z79.899 Other long term (current) drug therapy; Z72.89 Other problems related to lifestyle; Z88.2 Allergy status to sulfonamides; Z88.1 Allergy status to other antibiotic agents; Z98.61 Coronary angioplasty status; Z82.49 Family history of ischemic heart disease and other diseases of the circulatory system; Z80.9 Family history of malignant neoplasm, unspecified
CPT/HCPCS: 36415; 49560; 49568; 80048; 85025; C1781; J0330; J0690; J1100; J1170; J1885; J2250; J2405; J2704; J2710; J7120; J2001

== ENCOUNTER 2017-12-23 14:15 | Outpatient (CLI) | payer MEDICARE ==
--- NOTE | 2017-12-23 14:43 | XRay Report ---
ROUTINE CHEST, TWO VIEWS: HISTORY: chest pain. The trachea, heart, mediastinal contour, lung oliver and bony thorax are unremarkable. Right upper lobe infiltrate has resolved since 09/27/17. IMPRESSION: Unremarkable chest x-ray.
== END 2017-12-23 14:16 | disposition home or self-care (01) ==
LOC: XRAY 14:15
PROVIDERS: ATTEND Nurse Practitioner
DX: R05 Cough (principal); I10 Essential (primary) hypertension; I25.10 Atherosclerotic heart disease of native coronary artery without angina pectoris; J45.909 Unspecified asthma, uncomplicated; F17.210 Nicotine dependence, cigarettes, uncomplicated
CPT/HCPCS: 71046

== ENCOUNTER 2019-01-28 11:57 | Emergency (ER) | payer MEDICARE ==
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
[2019-01-28 16:03] VITALS: BP 140/60
== END 2019-01-28 16:02 | disposition home or self-care (01) ==
LOC: ED 11:57
DX: S29.012A Strain of muscle and tendon of back wall of thorax, initial encounter (principal); F17.200 Nicotine dependence, unspecified, uncomplicated; I10 Essential (primary) hypertension; J45.909 Unspecified asthma, uncomplicated; Z21 Asymptomatic human immunodeficiency virus [HIV] infection status; Z88.2 Allergy status to sulfonamides; Z79.82 Long term (current) use of aspirin; Z79.899 Other long term (current) drug therapy; Z95.1 Presence of aortocoronary bypass graft; Z93.0 Tracheostomy status; V89.2XXA Person injured in unspecified motor-vehicle accident, traffic, initial encounter; Y93.89 Activity, other specified; Y92.488 Other paved roadways as the place of occurrence of the external cause; Y99.8 Other external cause status
CPT/HCPCS: 72072; 99283

== ENCOUNTER 2020-01-09 19:02 | Emergency (ER) | payer MEDICARE ==
[2020-01-09 19:19] VITALS: BP 174/95
[2020-01-09 19:49] LABS: Bacteria,Urine 1+ /HPF (Negative); Bilirubin,Urine NEG (Negative); Blood,Urine SM (Negative); Color,Urine Yellow (Yellow); Mucus,Urine FEW /HPF; Protein,Urine <15 mg/dL mg/dL (Negative); RBC,Urine < 1.0 /HPF (0.0-6.0)
[2020-01-09 20:03] LABS: BUN/Creatinine Ratio 6; Blood Urea Nitrogen 5 mg/dL (9-20); Calcium 9.3 mg/dL (8.4-10.2); Hemolysis Index 4
[2020-01-09 20:05] LABS: Hematocrit 42.8 % (35.5-45.6); Hemoglobin 13.8 gm/dl (11.8-15.2); Mean Corpuscular HGB Conc 32 % (32-34); Mean Corpuscular Volume 72 fl (84-94); Platelet Count 152 K/mm3 (140-440); Red Blood Count 5.95 M/mm3 (3.65-5.03)
[2020-01-09 20:10] LABS: Amphetamine Screen,Urine Negative; Benzodiazepines Screen,Urine Negative; Cannabinoid Screen,Urine Negative; Cocaine Screen,Urine Negative; Methadone Screen,Urine Negative; Opiate Screen,Urine Negative
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
[2020-01-10 01:22] LABS: Basophils % (Manual) 0 % (0.0-1.8); Total Cells Counted 100
[2020-01-10 01:23] LABS: Anisocytosis 1+; Hypochromasia 1+; Platelet Estimate Consistent w Auto
== END 2020-01-09 23:49 | disposition left against medical advice (07) ==
LOC: ED 19:02
DX: F10.20 Alcohol dependence, uncomplicated (principal); I10 Essential (primary) hypertension; J45.909 Unspecified asthma, uncomplicated; F17.200 Nicotine dependence, unspecified, uncomplicated; Z86.11 Personal history of tuberculosis; Z21 Asymptomatic human immunodeficiency virus [HIV] infection status; Z98.890 Other specified postprocedural states; Z79.1 Long term (current) use of non-steroidal anti-inflammatories (NSAID); Z79.899 Other long term (current) drug therapy; Z88.8 Allergy status to other drugs, medicaments and biological substances
CPT/HCPCS: 36415; 80048; 80307; 80320; 81001; 85007; 85025; 99283; G0480

== ENCOUNTER 2020-02-05 14:07 | Inpatient (IN) | payer MEDICARE ==
[2020-02-05] MEDS ORDERED: DIPHtheria,PERTUSSIS(ACELL),TETANUS VACCINE/PF 0.5 ML VIAL IM ONE (15:40)
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
[2020-02-05] MEDS ORDERED: THIAMINE 100 MG, FOLIC ACID 1 MG, MULTIPLE VITAMIN INJ, ADULT 10 ML in SODIUM CHLORIDE ... IV ONE (16:00)
[2020-02-05] MEDS: LORazepam 2 MG/ML VIAL IV PRN ×3 (16:17→18:43)
[2020-02-05 16:37] LABS: Hematocrit 39.7 % (35.5-45.6); Hemoglobin 12.9 gm/dl (11.8-15.2); Mean Corpuscular HGB Conc 33 % (32-34); Mean Corpuscular Volume 73 fl (84-94); Red Blood Count 5.42 M/mm3 (3.65-5.03)
[2020-02-05 16:40] LABS: Red Cell Distribution Width 22.9 % (13.2-15.2)
--- NOTE | 2020-02-05 16:58 | XRay Report ---
LEFT FOOT 3 VIEW(S) INDICATION / CLINICAL INFORMATION: injury, pain COMPARISON: None available. FINDINGS: There are comminuted, minimally displaced fractures of the second, third, fourth, and fifth metatarsa ls. Fracture of the fifth metatarsal is predominantly obliquely oriented and is located at the metata rsal base. The fracture of the fourth metatarsal is obliquely oriented and located at the distal diap hysis. The fracture of the third metatarsal is predominantly also obliquely oriented and is seen with in the mid shaft. The fracture of the second metatarsal is prominently transversely oriented and is s een at the distal diaphysis. No dislocation. IMPRESSION: Minimally displaced, comminuted fractures of the 2nd-5th metatarsals. Signer Name: John Chavez MD Signed: 02/05/2020 4:54 PM Workstation Name: [id number]
[2020-02-05 17:24] LABS: Anisocytosis 1+; Basophils % (Manual) 0 % (0.0-1.8); Hypochromasia 1+; Platelet Clumps Few; Total Cells Counted 100
[2020-02-05 17:29] LABS: Platelet Count 126 K/mm3 (140-440)
[2020-02-05 17:48] LABS: Bilirubin,Urine NEG (Negative); Blood,Urine SM (Negative); Color,Urine Yellow (Yellow); Mucus,Urine FEW /HPF
[2020-02-05 17:57] LABS: Amphetamine Screen,Urine PRESUMPTIVE NEGATIVE; Benzodiazepines Screen,Urine PRESUMPTIVE NEGATIVE; Cannabinoid Screen,Urine PRESUMPTIVE NEGATIVE; Cocaine Screen,Urine PRESUMPTIVE NEGATIVE; Methadone Screen,Urine PRESUMPTIVE NEGATIVE; Opiate Screen,Urine PRESUMPTIVE NEGATIVE
[2020-02-05 19:13] LABS: Alanine Aminotransferase 76 units/L (7-56); Albumin 3.7 g/dL (3.9-5); BUN/Creatinine Ratio 9; Bilirubin,Direct 0.3 mg/dL (0-0.2); Blood Urea Nitrogen 8 mg/dL (9-20); Calcium 9.2 mg/dL (8.4-10.2); Hemolysis Index 6
[2020-02-05] MEDS ORDERED: HYDROmorphone 1 MG/1 ML INJ ONE (20:48)
[2020-02-05] MEDS ORDERED: HYDROmorphone 1 MG/1 ML INJ IV ONE (20:50)
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
[2020-02-05] MEDS ORDERED: METOCLOPRAMIDE 10 MG/2 ML INJ IV PRN (22:45)
[2020-02-06] MEDS: FAMOTIDINE 20 MG/2 ML INJ IV SCH ×3 (02:16→22:37)
[2020-02-06] MEDS: LORazepam 2 MG/ML VIAL IV PRN ×4 (02:16→17:45)
[2020-02-06] MEDS ORDERED: LOPERAMIDE 2 MG CAP PO STA (03:51)
[2020-02-06] MEDS: MORPHINE 4 MG/1 ML INJ IV PRN ×3 (06:37→16:17)
[2020-02-06] MEDS: oxyCODONE /ACETAMINOPHEN 5-325MG TAB PO PRN ×2 (08:27→17:48)
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
[2020-02-06] MEDS: ONDANSETRON 4 MG/2 ML INJ IV PRN (17:48)
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
[2020-02-07] MEDS: oxyCODONE /ACETAMINOPHEN 5-325MG TAB PO PRN ×3 (01:40→22:07)
[2020-02-07] MEDS: LORazepam 2 MG/ML VIAL IV PRN ×9 (01:40→23:49)
[2020-02-07] MEDS: MORPHINE 4 MG/1 ML INJ IV PRN ×4 (03:39→17:34)
[2020-02-07] MEDS: FAMOTIDINE 20 MG/2 ML INJ IV SCH (09:01)
--- NOTE | 2020-02-07 14:50 | Progress Note ---
Assessment and Plan - Patient Problems (1) Alcohol withdrawal Current Visit: Yes Status: Acute Plan to address problem: Patient still undergoing active delirium tremors. Will begin discharge processing once safe from delirium tremors. (2) Alcohol withdrawal delirium Current Visit: Yes Status: Acute Plan to address problem: Patient in active DTs required titration of medical management. CIWA protocol. Vitamins and supportive care has been initiated. (3) DVT prophylaxis Current Visit: Yes Status: Acute (4) Fracture of metatarsal of left foot, closed Current Visit: Yes Status: Acute Qualifiers: Encounter type: initial encounter Plan to address problem: Would not require surgical intervention. C Ortho evaluation. (5) Hypertensive urgency Current Visit: Yes Status: Acute Plan to address problem: Partially alcohol withdrawal may play some role. Will titrate accordingly. Clinic 157/95. (6) HIV (human immunodeficiency virus infection) Current Visit: Yes Status: Chronic Qualifiers: HIV symptom status: asymptomatic Qualified Code(s): Z21 - Asymptomatic human immunodeficiency virus [HIV] infection status Plan to address problem: Resume antiretrovirals. Subjective Date of service: 02/07/20 Principal diagnosis: EtOH withdrawal broken foot. Interval history: Patient hospital course was complicated by increased agitation increased confusion and increased tremors. Patient required treatment via CIWA protocol is now somewhat somnolent from medication on management. Evaluation of broken metatarsal suggest physical therapy. Surgery not indicated. Objective - Constitutional Vitals: Vital Signs - 12hr 02/07/20 02/07/20 02/07/20 03:37 03:39 04:09 Temperature 98.7 F Pulse Rate 90 Respiratory 18 20 20 Rate Blood Pressure 135/93 Blood Pressure [Right] O2 Sat by Pulse 94 Oximetry 02/07/20 02/07/20 02/07/20 05:00 07:46 07:47 Temperature 98.7 F Pulse Rate 90 90 82 Respiratory 18 Rate Blood Pressure 148/88 Blood Pressure 148/88 [Right] O2 Sat by Pulse 98 100 Oximetry 02/07/20 02/07/20 11:06 11:10 Temperature 98 F Pulse Rate 93 H 94 H Respiratory 18 Rate Blood Pressure 150/93 Blood Pressure 150/93 [Right] O2 Sat by Pulse 97 97 Oximetry General appearance: Present: no acute distress, other (Patient resting sleeping comfortably) - Respiratory Respiratory effort: normal - Cardiovascular Rhythm: regular Heart Sounds: Present: S1 & S2. Absent: gallop, rub Extremities: pulses intact, No edema, normal color, Full ROM - Gastrointestinal General gastrointestinal: Present: soft, non-tender, non-distended, normal bowel sounds - Musculoskeletal Musculoskeletal: generalized weakness - Neurologic Neurologic: moves all extremities - Psychiatric Psychiatric: appropriate mood/affect, agitated, other (Agitation confusion delirium tremors.) - Labs CBC & Chem 7: 02/05/20 16:14 02/05/20 17:51 Labs: Abnormal lab results 02/06/20 Range/Units 16:11 POC Glucose 106 H (70-105)
[2020-02-07] MEDS ORDERED: NICOTINE 14 MG/24 HR PATCH TD ONE (16:37)
[2020-02-07] MEDS: FAMOTIDINE 20 MG TAB PO SCH (21:01)
[2020-02-08] MEDS: LORazepam 2 MG/ML VIAL IV PRN ×8 (01:27→22:04)
[2020-02-08] MEDS: D5W/0.9% NACL 1,000 ML IV SCH ×2 (04:21→22:05)
[2020-02-08] MEDS: FAMOTIDINE 20 MG TAB PO SCH ×2 (10:33→22:04)
[2020-02-08] MEDS ORDERED: chlordiazePOXIDE 25 MG CAP PO SCH (17:00)
--- NOTE | 2020-02-08 17:18 | Progress Note ---
Assessment and Plan - Patient Problems (1) Alcohol withdrawal Current Visit: Yes Status: Acute Plan to address problem: Patient remained significantly agitated despite CIWA protocol. Ativan appears to lost some effectiveness. Will change to Librium 50 mg 3 times daily. (2) Alcohol withdrawal delirium Current Visit: Yes Status: Acute Plan to address problem: Patient in active DTs required titration of medical management. CIWA protocol. Vitamins and supportive care has been initiated. (3) DVT prophylaxis Current Visit: Yes Status: Acute (4) Fracture of metatarsal of left foot, closed Current Visit: Yes Status: Acute Qualifiers: Encounter type: initial encounter Plan to address problem: Would not require surgical intervention. C Ortho evaluation. (5) Hypertensive urgency Current Visit: Yes Status: Acute Plan to address problem: Partially alcohol withdrawal may play some role. Will titrate accordingly. Clinic 157/95. (6) HIV (human immunodeficiency virus infection) Current Visit: Yes Status: Chronic Qualifiers: HIV symptom status: asymptomatic Qualified Code(s): Z21 - Asymptomatic human immunodeficiency virus [HIV] infection status Plan to address problem: Resume antiretrovirals. Subjective Date of service: 02/08/20 Principal diagnosis: EtOH withdrawal broken foot. Interval history: Patient hospital course was complicated by increased agitation increased confusion and increased tremors. Patient required treatment via CIWA protocol is now somewhat somnolent from medication on management. Evaluation of broken metatarsal suggest physical therapy. Surgery not indicated. Patient remains so mewhat somnolent secondary to delirium tremors. Patient has become much more agitated requiring Ativan 4 mg. Ativan appears not to be very effective at this time. Objective - Constitutional Vitals: Vital Signs - 12hr 02/08/20 02/08/20 02/08/20 07:11 13:00 16:05 Temperature 98.0 F Pulse Rate 80 80 93 H Respiratory 20 Rate Blood Pressure 136/87 163/110 O2 Sat by Pulse 93 Oximetry General appearance: Present: mild distress - EENT Eyes: PERRL, EOM intact ENT: hearing intact, clear oral mucosa - Respiratory Respiratory: bilateral: CTA - Cardiovascular Rhythm: regular Heart Sounds: Present: S1 & S2. Absent: gallop, rub - Musculoskeletal Musculoskeletal: 1, strength equal bilaterally - Neurologic Neurologic: moves all extremities - Psychiatric Psychiatric: memory intact, appropriate mood/affect, intact judgment & insight - Labs CBC & Chem 7: 02/05/20 16:14 02/05/20 17:51
[2020-02-08] MEDS ORDERED: NON-FORMULARY EACH (Emtricitabin/Tenofovir [Truvada 200-300 Mg] 1 TAB) PO SCH (17:30)
[2020-02-08] MEDS: CLOPIDOGREL 75 MG TAB PO SCH (18:06)
[2020-02-08] MEDS: ASPIRIN 325 MG TAB PO SCH (18:06)
[2020-02-08 19:01] LABS: Alanine Aminotransferase 50 units/L (7-56); Albumin 3.5 g/dL (3.9-5); BUN/Creatinine Ratio 15; Blood Urea Nitrogen 12 mg/dL (9-20); Calcium 9.8 mg/dL (8.4-10.2); Hemolysis Index 123
[2020-02-08] MEDS ORDERED: RITONAVIR PO SCH (22:00)
[2020-02-08] MEDS ORDERED: LOPINAVIR PO SCH (22:00)
[2020-02-08] MEDS: METOPROLOL TARTRATE 25 MG TAB PO SCH (22:04)
[2020-02-08] MEDS: chlordiazePOXIDE 25 MG CAP PO SCH (22:04)
[2020-02-09] MEDS: LORazepam 2 MG/ML VIAL IV PRN ×5 (00:27→21:22)
[2020-02-09 06:16] LABS: Basophils % (Auto) 0.8 % (0.0-1.8); Eosinophils # (Auto) 0.1 K/mm3 (0.0-0.4); Eosinophils % (Auto) 1.7 % (0.0-4.3); Hematocrit 35.5 % (35.5-45.6); Hemoglobin 11.1 gm/dl (11.8-15.2); Lymphocytes # (Auto) 1.7 K/mm3 (1.2-5.4); Lymphocytes % (Auto) 37.4 % (13.4-35.0); Mean Corpuscular HGB Conc 31 % (32-34); Mean Corpuscular Volume 77 fl (84-94); Monocytes # (Auto) 0.6 K/mm3 (0.0-0.8); Monocytes % (Auto) 13.5 % (0.0-7.3)
[2020-02-09 06:19] LABS: Platelet Count 97 K/mm3 (140-440); Red Cell Distribution Width 23.8 % (13.2-15.2)
[2020-02-09 06:32] LABS: BUN/Creatinine Ratio 13; Blood Urea Nitrogen 10 mg/dL (9-20); Calcium 9.4 mg/dL (8.4-10.2); Hemolysis Index 5
[2020-02-09] MEDS: chlordiazePOXIDE 25 MG CAP PO SCH ×3 (08:02→20:51)
[2020-02-09] MEDS: METOPROLOL TARTRATE 25 MG TAB PO SCH ×2 (09:33→21:18)
[2020-02-09] MEDS: ASPIRIN 325 MG TAB PO SCH (09:34)
[2020-02-09] MEDS: FAMOTIDINE 20 MG TAB PO SCH ×2 (09:34→21:18)
[2020-02-09] MEDS: CLOPIDOGREL 75 MG TAB PO SCH (09:34)
[2020-02-09] MEDS: MORPHINE 4 MG/1 ML INJ IV PRN ×3 (09:43→21:22)
--- NOTE | 2020-02-09 12:13 | Progress Note ---
Assessment and Plan Assessment and plan: (1) Alcohol withdrawal Patient remained significantly agitated despite CIWA protocol. Ativan appears to lost some effectiveness. Will change to Librium 50 mg 3 times daily. (2) Alcohol withdrawal delirium Patient in active DTs required titration of medical management. CIWA protocol. Vitamins and supportive care has been initiated. (3) DVT prophylaxis (4) Fracture of metatarsal of left foot, closed Would not require surgical intervention. C Ortho evaluation. (5) Hypertensive urgency Partially alcohol withdrawal may play some role. Will titrate accordingly. [facility] 157/95. (6) HIV (human immunodeficiency virus infection) Resume antiretrovirals. History Interval history: No new issues overnight. Nurse reports patient remains agitated requiring restraints. Hospitalist Physical - Constitutional Vitals: Temp Pulse Resp BP Pulse Ox 97.3 F L 75 19 168/96 97 02/09/20 08:21 02/09/20 09:33 02/09/20 08:21 02/09/20 09:33 02/09/20 08:21 General appearance: Present: mild distress - EENT Eyes: Present: PERRL, EOM intact ENT: hearing intact, clear oral mucosa, dentition normal - Neck Neck: Present: supple, normal ROM - Respiratory Respiratory effort: normal Respiratory: bilateral: CTA - Cardiovascular Rhythm: regular Heart Sounds: Present: S1 & S2. Absent: gallop, rub - Extremities Extremities: no ischemia, No edema, Full ROM - Abdominal General gastrointestinal: soft, non-tender, non-distended, normal bowel sounds - Integumentary Integumentary: Present: clear, warm, dry - Neurologic Neurologic: CNII-XII intact, moves all extremities Results - Labs CBC & Chem 7: 02/09/20 05:25 02/09/20 05:25 Labs: Laboratory Last Values WBC 4.4 K/mm3 (4.5-11.0) L 02/09/20 05:25 RBC 4.60 M/mm3 (3.65-5.03) 02/09/20 05:25 Hgb 11.1 gm/dl (11.8-15.2) L 02/09/20 05:25 Hct 35.5 % (35.5-45.6) 02/09/20 05:25 MCV 77 fl (84-94) L 02/09/20 05:25 MCH 24 pg (28-32) L 02/09/20 05:25 MCHC 31 % (32-34) L 02/09/20 05:25 RDW 23.8 % (13.2-15.2) H 02/09/20 05:25 Plt Count 97 K/mm3 (140-440) L 02/09/20 05:25 Lymph % (Auto) 37.4 % (13.4-35.0) H 02/09/20 05:25 [place] % (Auto) 13.5 % (0.0-7.3) H 02/09/20 05:25 Eos % (Auto) 1.7 % (0.0-4.3) 02/09/20 05:25 Baso % (Auto) 0.8 % (0.0-1.8) 02/09/20 05:25 Lymph # (Auto) 1.7 K/mm3 (1.2-5.4) 02/09/20 05:25 [place] # (Auto) 0.6 K/mm3 (0.0-0.8) 02/09/20 05:25 Eos # (Auto) 0.1 K/mm3 (0.0-0.4) 02/09/20 05:25 Baso # (Auto) 0.0 K/mm3 (0.0-0.1) 02/09/20 05:25 Add Manual Diff Complete 02/05/20 16:14 Total Counted 100 02/05/20 16:14 Seg Neutrophils % 46.6 % (40.0-70.0) 02/09/20 05:25 Seg Neuts % (Manual) 58.0 % (40.0-70.0) 02/05/20 16:14 Band Neutrophils % 0 % 02/05/20 16:14 Lymphocytes % (Manual) 33.0 % (13.4-35.0) 02/05/20 16:14 Reactive Lymphs % (Man) 0 % 02/05/20 16:14 Monocytes % (Manual) 8.0 % (0.0-7.3) H 02/05/20 16:14 Eosinophils % (Manual) 1.0 % (0.0-4.3) 02/05/20 16:14 Basophils % (Manual) 0 % (0.0-1.8) 02/05/20 16:14 Metamyelocytes % 0 % 02/05/20 16:14 Myelocytes % 0 % 02/05/20 16:14 Promyelocytes % 0 % 02/05/20 16:14 Blast Cells % 0 % 02/05/20 16:14 Nucleated RBC % Not Reportable 02/05/20 16:14 Seg Neutrophils # 2.1 K/mm3 (1.8-7.7) 02/09/20 05:25 Seg Neutrophils # Man 2.8 K/mm3 (1.8-7.7) 02/05/20 16:14 Band Neutrophils # 0.0 K/mm3 02/05/20 16:14 Lymphocytes # (Manual) 1.6 K/mm3 (1.2-5.4) 02/05/20 16:14 Abs React Lymphs (Man) 0.0 K/mm3 02/05/20 16:14 Monocytes # (Manual) 0.4 K/mm3 (0.0-0.8) 02/05/20 16:14 Eosinophils # (Manual) 0.0 K/mm3 (0.0-0.4) 02/05/20 16:14 Basophils # (Manual) 0.0 K/mm3 (0.0-0.1) 02/05/20 16:14 Metamyelocytes # 0.0 K/mm3 02/05/20 16:14 Myelocytes # 0.0 K/mm3 02/05/20 16:14 Promyelocytes # 0.0 K/mm3 02/05/20 16:14 Blast Cells # 0.0 K/mm3 02/05/20 16:14 WBC Morphology Not Reportable 02/05/20 16:14 Hypersegmented Neuts Not Reportable 02/05/20 16:14 Hyposegmented Neuts Not Reportable 02/05/20 16:14 Hypogranular Neuts Not Reportable 02/05/20 16:14 Smudge Cells Not Reportable 02/05/20 16:14 Toxic Granulation Not Reportable 02/05/20 16:14 Toxic Vacuolation Not Reportable 02/05/20 16:14 Dohle Bodies Not Reportable 02/05/20 16:14 Pelger-Huet Anomaly Not Reportable 02/05/20 16:14 Esperanza Rods Not Reportable 02/05/20 16:14 Platelet Estimate Not Reportable 02/05/20 16:14 Clumped Platelets Few 02/05/20 16:14 Plt Clumps, EDTA Not Reportable 02/05/20 16:14 Large Platelets Not Reportable 02/05/20 16:14 Giant Platelets Not Reportable 02/05/20 16:14 Platelet Satelliting Not Reportable 02/05/20 16:14 Plt Morphology Comment Not Reportable 02/05/20 16:14 RBC Morphology Not Reportable 02/05/20 16:14 Dimorphic RBCs Not Reportable 02/05/20 16:14 Polychromasia Not Reportable 02/05/20 16:14 Hypochromasia 1+ 02/05/20 16:14 Poikilocytosis Not Reportable 02/05/20 16:14 Anisocytosis 1+ 02/05/20 16:14 Microcytosis Few 02/05/20 16:14 Macrocytosis Not Reportable 02/05/20 16:14 Spherocytes Not Reportable 02/05/20 16:14 Pappenheimer Bodies Not Reportable 02/05/20 16:14 Sickle Cells Not Reportable 02/05/20 16:14 Target Cells Not Reportable 02/05/20 16:14 Tear Drop Cells Not Reportable 02/05/20 16:14 Ovalocytes Not Reportable 02/05/20 16:14 Helmet Cells Not Reportable 02/05/20 16:14 Sargent-Wise Bodies Not Reportable 02/05/20 16:14 [place] Rings Not Reportable 02/05/20 16:14 [place] Cells Not Reportable 02/05/20 16:14 Bite Cells Not Reportable 02/05/20 16:14 Crenated Cell Not Reportable 02/05/20 16:14 Elliptocytes Not Reportable 02/05/20 16:14 Acanthocytes (Spur) Not Reportable 02/05/20 16:14 Rouleaux Not Reportable 02/05/20 16:14 Hemoglobin C Crystals Not Reportable 02/05/20 16:14 Schistocytes Not Reportable 02/05/20 16:14 Malaria parasites Not Reportable 02/05/20 16:14 Bobby Bodies Not Reportable 02/05/20 16:14 Hem Pathologist Commnt No 02/05/20 16:14 Sodium 139 mmol/L (137-145) 02/09/20 05:25 Potassium 3.8 mmol/L (3.6-5.0) 02/09/20 05:25 Chloride 104.0 mmol/L (98-107) 02/09/20 05:25 Carbon Dioxide 21 mmol/L (22-30) L 02/09/20 05:25 Anion Gap 18 mmol/L 02/09/20 05:25 BUN 10 mg/dL (9-20) 02/09/20 05:25 Creatinine 0.8 mg/dL (0.8-1.3) 02/09/20 05:25 Estimated GFR > 60 ml/min 02/09/20 05:25 BUN/Creatinine Ratio 13 % 02/09/20 05:25 Glucose 95 mg/dL (75-100) 02/09/20 05:25 POC Glucose 93 (70-105) 02/09/20 08:34 Hemoglobin A1c 5.4 % (4-6) 02/06/20 04:58 Calcium 9.4 mg/dL (8.4-10.2) 02/09/20 05:25 Total Bilirubin 0.60 mg/dL (0.1-1.2) 02/08/20 17:58 Direct Bilirubin 0.3 mg/dL (0-0.2) H 02/05/20 17:51 Indirect Bilirubin 0.5 mg/dL 02/05/20 17:51 AST 59 units/L (5-40) H 02/08/20 17:58 ALT 50 units/L (7-56) 02/08/20 17:58 Alkaline Phosphatase 166 units/L (35-129) H 02/08/20 17:58 Total Protein 8.6 g/dL (6.3-8.2) H 02/08/20 17:58 Albumin 3.5 g/dL (3.9-5) L 02/08/20 17:58 Albumin/Globulin Ratio 0.7 % 02/08/20 17:58 Urine Color Yellow (Yellow) 02/05/20 17:47 Urine Turbidity Clear (Clear) 02/05/20 17:47 Urine pH 5.0 (5.0-7.0) 02/05/20 17:47 Ur Specific [place] 1.020 (1.003-1.030) 02/05/20 17:47 Urine Protein 100 mg/dl mg/dL (Negative) 02/05/20 17:47 Urine Glucose (UA) Neg mg/dL (Negative) 02/05/20 17:47 Urine Ketones 20 mg/dL (Negative) 02/05/20 17:47 Urine Blood Sm (Negative) 02/05/20 17:47 Urine Nitrite Neg (Negative) 02/05/20 17:47 Urine Bilirubin Neg (Negative) 02/05/20 17:47 Urine Urobilinogen 2.0 mg/dL (<2.0) 02/05/20 17:47 Ur Leukocyte Esterase Neg (Negative) 02/05/20 17:47 Urine WBC (Auto) 2.0 /HPF (0.0-6.0) 02/05/20 17:47 Urine RBC (Auto) 1.0 /HPF (0.0-6.0) 02/05/20 17:47 U Epithel Cells (Auto) < 1.0 /HPF (0-13.0) 02/05/20 17:47 Urine Mucus Few /HPF 02/05/20 17:47 Salicylates < 0.3 mg/dL (2.8-20.0) L 02/05/20 16:14 Urine Opiates Screen Presumptive negative 02/05/20 17:47 Urine Methadone Screen Presumptive negative 02/05/20 17:47 Acetaminophen 5.0 ug/mL (10.0-30.0) L 02/05/20 16:14 Ur Barbiturates Screen Presumptive negative 02/05/20 17:47 Ur Phencyclidine Scrn Presumptive negative 02/05/20 17:47 Ur Amphetamines Screen Presumptive negative 02/05/20 17:47 U Benzodiazepines Scrn Presumptive negative 02/05/20 17:47 Urine Cocaine Screen Presumptive negative 02/05/20 17:47 U Marijuana (THC) Screen Presumptive negative 02/05/20 17:47 Drugs of Abuse Note Disclamer 02/05/20 17:47 Plasma/Serum Alcohol < 0.01 % (0-0.07) 02/05/20 16:14 [place]/IV: Voiding Method Condom Catheter IV Catheter Type [Right INT / Saline Lock Forearm] IV Catheter Type [Right Hand] Peripheral IV Active Medications - Current Medications Current Medications: Generic Name Dose Route Start Last Admin Trade Name Freq PRN Reason Stop Dose Admin Acetaminophen 650 mg 02/05/20 22:45 Tylenol PO Q4H PRN Pain MILD(1-3)/Fever >100.5/GAMBINO Aspirin 325 mg 02/08/20 18:00 02/09/20 09:34 Aspirin PO 325 mg QDAY MICHAEL Administration Chlordiazepoxide HCl 25 mg 02/08/20 20:00 02/09/20 08:02 Librium PO 25 mg TID MICHAEL Administration Clopidogrel Bisulfate 75 mg 02/08/20 18:00 02/09/20 09:34 Plavix PO 75 mg QDAY MICHAEL Administration Famotidine 20 mg 02/07/20 22:00 02/09/20 09:34 Pepcid PO 20 mg BID MICHAEL Administration Dextrose/Sodium Chloride 1,000 mls @ 100 mls/hr 02/05/20 23:00 02/08/20 22:05 D5ns IV 100 mls/hr DIRECT MICHAEL Administration Labetalol HCl 10 mg 02/05/20 20:28 02/09/20 00:28 Labetalol IV 10 mg Q3HR PRN Administration Increased Blood Pressure Lorazepam 2 mg 02/05/20 15:32 02/09/20 09:37 Ativan IV 2 mg Q1HR PRN Administration CIWA-Ar 8-15 Lorazepam 4 mg 02/05/20 15:32 02/09/20 00:27 Ativan IV 4 mg Q1HR PRN Administration CIWA-Ar 16-25 Metoclopramide HCl 10 mg 02/05/20 22:45 Reglan IV Q6H PRN Nausea And Vomiting Metoprolol Tartrate 12.5 mg 02/08/20 22:00 02/09/20 09:33 Metoprolol PO 12.5 mg BID MICHAEL Administration Miscellaneous Medication 1 tab 02/08/20 17:30 Emtricitabin/Tenofovir [Truvada 200-300 Mg] PO QDAY [facility] Miscellaneous Medication 1 each 02/08/20 22:00 Lopinavir/Ritonavir (Nf) PO BID [facility] Morphine Sulfate 4 mg 02/05/20 22:45 02/09/20 09:43 Morphine IV 4 mg Q4H PRN Administration Pain , Severe (7-10) Ondansetron HCl 4 mg 02/05/20 22:45 02/06/20 17:48 Zofran IV 4 mg Q8H PRN Administration Nausea And Vomiting Oxycodone/Acetaminophen 1 tab 02/05/20 22:45 02/07/20 22:07 Percocet 5/325 PO 1 tab Q6H PRN Administration Pain, Moderate (4-6) Sodium Chloride 10 ml 02/06/20 10:00 02/09/20 09:34 Sodium Chloride Flush Syringe 10 Ml IV 10 ml BID MICHAEL Administration Sodium Chloride 10 ml 02/05/20 22:45 02/06/20 06:40 Sodium Chloride Flush Syringe 10 Ml IV 10 ml PRN PRN Administration LINE FLUSH
[2020-02-09] MEDS ORDERED: NICOTINE 14 MG/24 HR PATCH TD ONE (15:00)
[2020-02-09] MEDS: D5W/0.9% NACL 1,000 ML IV SCH (18:24)
[2020-02-10] MEDS: LORazepam 2 MG/ML VIAL IV PRN ×4 (01:28→16:50)
[2020-02-10] MEDS: ONDANSETRON 4 MG/2 ML INJ IV PRN (01:28)
[2020-02-10] MEDS: MORPHINE 4 MG/1 ML INJ IV PRN (04:41)
[2020-02-10] MEDS: D5W/0.9% NACL 1,000 ML IV SCH ×2 (04:43→14:01)
[2020-02-10] MEDS: chlordiazePOXIDE 25 MG CAP PO SCH ×3 (08:11→22:14)
--- NOTE | 2020-02-10 09:28 | Progress Note ---
Assessment and Plan Assessment and plan: Alcohol withdrawal Patient remained significantly agitated despite CIWA protocol. Ativan appears to lost some effectiveness. Will change to Librium 50 mg 3 times daily. Alcohol withdrawal delirium Patient in active DTs required titration of medical management. CIWA protocol. Vitamins and supportive care has been initiated. DVT prophylaxis Fracture of metatarsal of left foot, closed Would not require surgical intervention. C Ortho evaluation. Hypertensive urgency Partially alcohol withdrawal may play some role. Will titrate accordingly. Clinic 157/95. HIV (human immunodeficiency virus infection) Resume antiretrovirals. 02/10/2020. Continue CIWA protocol. Supportive care. History Interval history: No new issues overnight. Nurse reports patient remains agitated requiring restraints. Hospitalist Physical - Constitutional Vitals: Temp Pulse Resp BP Pulse Ox 98.0 F 73 17 177/103 99 02/10/20 07:41 02/10/20 07:41 02/10/20 07:41 02/10/20 07:41 02/10/20 07:41 General appearance: Present: mild distress - EENT Eyes: Present: PERRL, EOM intact ENT: hearing intact, clear oral mucosa, dentition normal - Neck Neck: Present: supple, normal ROM - Respiratory Respiratory effort: normal Respiratory: bilateral: CTA - Cardiovascular Rhythm: regular Heart Sounds: Present: S1 & S2. Absent: gallop, rub - Extremities Extremities: no ischemia, No edema, Full ROM - Abdominal General gastrointestinal: soft, non-tender, non-distended, normal bowel sounds - Integumentary Integumentary: Present: clear, warm, dry - Neurologic Neurologic: CNII-XII intact, moves all extremities Results - Labs CBC & Chem 7: 02/09/20 05:25 02/09/20 05:25 Labs: Laboratory Last Values WBC 4.4 K/mm3 (4.5-11.0) L 02/09/20 05:25 RBC 4.60 M/mm3 (3.65-5.03) 02/09/20 05:25 Hgb 11.1 gm/dl (11.8-15.2) L 02/09/20 05:25 Hct 35.5 % (35.5-45.6) 02/09/20 05:25 MCV 77 fl (84-94) L 02/09/20 05:25 MCH 24 pg (28-32) L 02/09/20 05:25 MCHC 31 % (32-34) L 02/09/20 05:25 RDW 23.8 % (13.2-15.2) H 02/09/20 05:25 Plt Count 97 K/mm3 (140-440) L 02/09/20 05:25 Lymph % (Auto) 37.4 % (13.4-35.0) H 02/09/20 05:25 [place] % (Auto) 13.5 % (0.0-7.3) H 02/09/20 05:25 Eos % (Auto) 1.7 % (0.0-4.3) 02/09/20 05:25 Baso % (Auto) 0.8 % (0.0-1.8) 02/09/20 05:25 Lymph # (Auto) 1.7 K/mm3 (1.2-5.4) 02/09/20 05:25 [place] # (Auto) 0.6 K/mm3 (0.0-0.8) 02/09/20 05:25 Eos # (Auto) 0.1 K/mm3 (0.0-0.4) 02/09/20 05:25 Baso # (Auto) 0.0 K/mm3 (0.0-0.1) 02/09/20 05:25 Add Manual Diff Complete 02/05/20 16:14 Total Counted 100 02/05/20 16:14 Seg Neutrophils % 46.6 % (40.0-70.0) 02/09/20 05:25 Seg Neuts % (Manual) 58.0 % (40.0-70.0) 02/05/20 16:14 Band Neutrophils % 0 % 02/05/20 16:14 Lymphocytes % (Manual) 33.0 % (13.4-35.0) 02/05/20 16:14 Reactive Lymphs % (Man) 0 % 02/05/20 16:14 Monocytes % (Manual) 8.0 % (0.0-7.3) H 02/05/20 16:14 Eosinophils % (Manual) 1.0 % (0.0-4.3) 02/05/20 16:14 Basophils % (Manual) 0 % (0.0-1.8) 02/05/20 16:14 Metamyelocytes % 0 % 02/05/20 16:14 Myelocytes % 0 % 02/05/20 16:14 Promyelocytes % 0 % 02/05/20 16:14 Blast Cells % 0 % 02/05/20 16:14 Nucleated RBC % Not Reportable 02/05/20 16:14 Seg Neutrophils # 2.1 K/mm3 (1.8-7.7) 02/09/20 05:25 Seg Neutrophils # Man 2.8 K/mm3 (1.8-7.7) 02/05/20 16:14 Band Neutrophils # 0.0 K/mm3 02/05/20 16:14 Lymphocytes # (Manual) 1.6 K/mm3 (1.2-5.4) 02/05/20 16:14 Abs React Lymphs (Man) 0.0 K/mm3 02/05/20 16:14 Monocytes # (Manual) 0.4 K/mm3 (0.0-0.8) 02/05/20 16:14 Eosinophils # (Manual) 0.0 K/mm3 (0.0-0.4) 02/05/20 16:14 Basophils # (Manual) 0.0 K/mm3 (0.0-0.1) 02/05/20 16:14 Metamyelocytes # 0.0 K/mm3 02/05/20 16:14 Myelocytes # 0.0 K/mm3 02/05/20 16:14 Promyelocytes # 0.0 K/mm3 02/05/20 16:14 Blast Cells # 0.0 K/mm3 02/05/20 16:14 WBC Morphology Not Reportable 02/05/20 16:14 Hypersegmented Neuts Not Reportable 02/05/20 16:14 Hyposegmented Neuts Not Reportable 02/05/20 16:14 Hypogranular Neuts Not Reportable 02/05/20 16:14 Smudge Cells Not Reportable 02/05/20 16:14 Toxic Granulation Not Reportable 02/05/20 16:14 Toxic Vacuolation Not Reportable 02/05/20 16:14 Dohle Bodies Not Reportable 02/05/20 16:14 Pelger-Huet Anomaly Not Reportable 02/05/20 16:14 Esperanza Rods Not Reportable 02/05/20 16:14 Platelet Estimate Not Reportable 02/05/20 16:14 Clumped Platelets Few 02/05/20 16:14 Plt Clumps, EDTA Not Reportable 02/05/20 16:14 Large Platelets Not Reportable 02/05/20 16:14 Giant Platelets Not Reportable 02/05/20 16:14 Platelet Satelliting Not Reportable 02/05/20 16:14 Plt Morphology Comment Not Reportable 02/05/20 16:14 RBC Morphology Not Reportable 02/05/20 16:14 Dimorphic RBCs Not Reportable 02/05/20 16:14 Polychromasia Not Reportable 02/05/20 16:14 Hypochromasia 1+ 02/05/20 16:14 Poikilocytosis Not Reportable 02/05/20 16:14 Anisocytosis 1+ 02/05/20 16:14 Microcytosis Few 02/05/20 16:14 Macrocytosis Not Reportable 02/05/20 16:14 Spherocytes Not Reportable 02/05/20 16:14 Pappenheimer Bodies Not Reportable 02/05/20 16:14 Sickle Cells Not Reportable 02/05/20 16:14 Target Cells Not Reportable 02/05/20 16:14 Tear Drop Cells Not Reportable 02/05/20 16:14 Ovalocytes Not Reportable 02/05/20 16:14 Helmet Cells Not Reportable 02/05/20 16:14 [place] Bodies Not Reportable 02/05/20 16:14 [place] Rings Not Reportable 02/05/20 16:14 [place] Cells Not Reportable 02/05/20 16:14 Bite Cells Not Reportable 02/05/20 16:14 Crenated Cell Not Reportable 02/05/20 16:14 Elliptocytes Not Reportable 02/05/20 16:14 Acanthocytes (Spur) Not Reportable 02/05/20 16:14 Rouleaux Not Reportable 02/05/20 16:14 Hemoglobin C Crystals Not Reportable 02/05/20 16:14 Schistocytes Not Reportable 02/05/20 16:14 Malaria parasites Not Reportable 02/05/20 16:14 [place] Bodies Not Reportable 02/05/20 16:14 Hem Pathologist Commnt No 02/05/20 16:14 Sodium 139 mmol/L (137-145) 02/09/20 05:25 Potassium 3.8 mmol/L (3.6-5.0) 02/09/20 05:25 Chloride 104.0 mmol/L (98-107) 02/09/20 05:25 Carbon Dioxide 21 mmol/L (22-30) L 02/09/20 05:25 Anion Gap 18 mmol/L 02/09/20 05:25 BUN 10 mg/dL (9-20) 02/09/20 05:25 Creatinine 0.8 mg/dL (0.8-1.3) 02/09/20 05:25 Estimated GFR > 60 ml/min 02/09/20 05:25 BUN/Creatinine Ratio 13 % 02/09/20 05:25 Glucose 95 mg/dL (75-100) 02/09/20 05:25 POC Glucose 98 (70-105) 02/10/20 08:06 Hemoglobin A1c 5.4 % (4-6) 02/06/20 04:58 Calcium 9.4 mg/dL (8.4-10.2) 02/09/20 05:25 Total Bilirubin 0.60 mg/dL (0.1-1.2) 02/08/20 17:58 Direct Bilirubin 0.3 mg/dL (0-0.2) H 02/05/20 17:51 Indirect Bilirubin 0.5 mg/dL 02/05/20 17:51 AST 59 units/L (5-40) H 02/08/20 17:58 ALT 50 units/L (7-56) 02/08/20 17:58 Alkaline Phosphatase 166 units/L (35-129) H 02/08/20 17:58 Total Protein 8.6 g/dL (6.3-8.2) H 02/08/20 17:58 Albumin 3.5 g/dL (3.9-5) L 02/08/20 17:58 Albumin/Globulin Ratio 0.7 % 02/08/20 17:58 Urine Color Yellow (Yellow) 02/05/20 17:47 Urine Turbidity Clear (Clear) 02/05/20 17:47 Urine pH 5.0 (5.0-7.0) 02/05/20 17:47 Ur Specific [place] 1.020 (1.003-1.030) 02/05/20 17:47 Urine Protein 100 mg/dl mg/dL (Negative) 02/05/20 17:47 Urine Glucose (UA) Neg mg/dL (Negative) 02/05/20 17:47 Urine Ketones 20 mg/dL (Negative) 02/05/20 17:47 Urine Blood Sm (Negative) 02/05/20 17:47 Urine Nitrite Neg (Negative) 02/05/20 17:47 Urine Bilirubin Neg (Negative) 02/05/20 17:47 Urine Urobilinogen 2.0 mg/dL (<2.0) 02/05/20 17:47 Ur Leukocyte Esterase Neg (Negative) 02/05/20 17:47 Urine WBC (Auto) 2.0 /HPF (0.0-6.0) 02/05/20 17:47 Urine RBC (Auto) 1.0 /HPF (0.0-6.0) 02/05/20 17:47 U Epithel Cells (Auto) < 1.0 /HPF (0-13.0) 02/05/20 17:47 Urine Mucus Few /HPF 02/05/20 17:47 Salicylates < 0.3 mg/dL (2.8-20.0) L 02/05/20 16:14 Urine Opiates Screen Presumptive negative 02/05/20 17:47 Urine Methadone Screen Presumptive negative 02/05/20 17:47 Acetaminophen 5.0 ug/mL (10.0-30.0) L 02/05/20 16:14 Ur Barbiturates Screen Presumptive negative 02/05/20 17:47 Ur Phencyclidine Scrn Presumptive negative 02/05/20 17:47 Ur Amphetamines Screen Presumptive negative 02/05/20 17:47 U Benzodiazepines Scrn Presumptive negative 02/05/20 17:47 Urine Cocaine Screen Presumptive negative 02/05/20 17:47 U Marijuana (THC) Screen Presumptive negative 02/05/20 17:47 Drugs of Abuse Note Disclamer 02/05/20 17:47 Plasma/Serum Alcohol < 0.01 % (0-0.07) 02/05/20 16:14 [place]ike/IV: Voiding Method Incontinent IV Catheter Type [Right INT / Saline Lock Forearm] IV Catheter Type [Right Hand] Peripheral IV Active Medications - Current Medications Current Medications: Generic Name Dose Route Start Last Admin Trade Name Freq PRN Reason Stop Dose Admin Acetaminophen 650 mg 02/05/20 22:45 Tylenol PO Q4H PRN Pain MILD(1-3)/Fever >100.5/GAMBINO Aspirin 325 mg 02/08/20 18:00 02/09/20 09:34 Aspirin PO 325 mg QDAY MICHAEL Administration Chlordiazepoxide HCl 25 mg 02/08/20 20:00 02/10/20 08:11 Librium PO 25 mg TID MICHAEL Administration Clopidogrel Bisulfate 75 mg 02/08/20 18:00 02/09/20 09:34 Plavix PO 75 mg QDAY MICHAEL Administration Famotidine 20 mg 02/07/20 22:00 02/09/20 21:18 Pepcid PO 20 mg BID MICHAEL Administration Dextrose/Sodium Chloride 1,000 mls @ 100 mls/hr 02/05/20 23:00 02/10/20 04:43 D5ns IV 100 mls/hr DIRECT MICHAEL Administration Labetalol HCl 10 mg 02/05/20 20:28 02/10/20 08:08 Labetalol IV 10 mg Q3HR PRN Administration Increased Blood Pressure Lorazepam 2 mg 02/05/20 15:32 02/10/20 08:08 Ativan IV 2 mg Q1HR PRN Administration CIWA-Ar 8-15 Lorazepam 4 mg 02/05/20 15:32 02/10/20 01:28 Ativan IV 4 mg Q1HR PRN Administration CIWA-Ar 16-25 Metoclopramide HCl 10 mg 02/05/20 22:45 Reglan IV Q6H PRN Nausea And Vomiting Metoprolol Tartrate 12.5 mg 02/08/20 22:00 02/09/20 21:18 Metoprolol PO 12.5 mg BID MICHAEL Administration Miscellaneous Medication 1 tab 02/08/20 17:30 Emtricitabin/Tenofovir [Truvada 200-300 Mg] PO QDAY [facility] Miscellaneous Medication 1 each 02/08/20 22:00 Lopinavir/Ritonavir (Nf) PO BID [facility] Morphine Sulfate 4 mg 02/05/20 22:45 02/10/20 04:41 Morphine IV 4 mg Q4H PRN Administration Pain , Severe (7-10) Ondansetron HCl 4 mg 02/05/20 22:45 02/10/20 01:28 Zofran IV 4 mg Q8H PRN Administration Nausea And Vomiting Oxycodone/Acetaminophen 1 tab 02/05/20 22:45 02/07/20 22:07 Percocet 5/325 PO 1 tab Q6H PRN Administration Pain, Moderate (4-6) Sodium Chloride 10 ml 02/06/20 10:00 02/10/20 01:29 Sodium Chloride Flush Syringe 10 Ml IV 10 ml BID MICHAEL Administration Sodium Chloride 10 ml 02/05/20 22:45 02/06/20 06:40 Sodium Chloride Flush Syringe 10 Ml IV 10 ml PRN PRN Administration LINE FLUSH
[2020-02-10] MEDS: CLOPIDOGREL 75 MG TAB PO SCH (10:00)
[2020-02-10] MEDS: FAMOTIDINE 20 MG TAB PO SCH ×2 (10:00→22:14)
[2020-02-10] MEDS: ASPIRIN 325 MG TAB PO SCH (10:00)
[2020-02-10] MEDS: METOPROLOL TARTRATE 25 MG TAB PO SCH ×2 (10:00→22:14)
[2020-02-10] MEDS: oxyCODONE /ACETAMINOPHEN 5-325MG TAB PO PRN (23:40)
[2020-02-11] MEDS: D5W/0.9% NACL 1,000 ML IV SCH ×2 (00:36→16:27)
[2020-02-11] MEDS: LORazepam 2 MG/ML VIAL IV PRN (00:36)
[2020-02-11] MEDS: chlordiazePOXIDE 25 MG CAP PO SCH ×3 (08:10→21:55)
--- NOTE | 2020-02-11 08:47 | Progress Note ---
Assessment and Plan Assessment and plan: Alcohol withdrawal Patient remained significantly agitated despite CIWA protocol. Ativan appears to lost some effectiveness. Will change to Librium 50 mg 3 times daily. Alcohol withdrawal delirium Patient in active DTs required titration of medical management. CIWA protocol. Vitamins and supportive care has been initiated. DVT prophylaxis Fracture of metatarsal of left foot, closed Would not require surgical intervention. C Ortho evaluation. Hypertensive urgency Partially alcohol withdrawal may play some role. Will titrate accordingly. Clinic 157/95. HIV (human immunodeficiency virus infection) Resume antiretrovirals. 02/10/2020. Continue CIWA protocol. Supportive care. 02/11/2020. Patient CIWA score is approximately 8. Patient still requiring restraints for agitation. Continue CIWA protocol History Interval history: No new issues overnight. Hospitalist Physical - Constitutional Vitals: Temp Pulse Resp BP Pulse Ox 32.1 F L 71 18 179/81 95 02/11/20 08:06 02/11/20 08:06 02/11/20 08:06 02/11/20 08:06 02/11/20 08:06 General appearance: Present: no acute distress - EENT Eyes: Present: PERRL, EOM intact ENT: hearing intact, clear oral mucosa, dentition normal - Neck Neck: Present: supple, normal ROM - Respiratory Respiratory effort: normal Respiratory: bilateral: CTA - Cardiovascular Rhythm: regular Heart Sounds: Present: S1 & S2. Absent: gallop, rub - Extremities Extremities: no ischemia, No edema, Full ROM - Abdominal General gastrointestinal: soft, non-tender, non-distended, normal bowel sounds - Integumentary Integumentary: Present: clear, warm, dry - Neurologic Neurologic: CNII-XII intact, moves all extremities Results - Labs CBC & Chem 7: 02/09/20 05:25 02/09/20 05:25 Labs: Laboratory Last Values WBC 4.4 K/mm3 (4.5-11.0) L 02/09/20 05:25 RBC 4.60 M/mm3 (3.65-5.03) 02/09/20 05:25 Hgb 11.1 gm/dl (11.8-15.2) L 02/09/20 05:25 Hct 35.5 % (35.5-45.6) 02/09/20 05:25 MCV 77 fl (84-94) L 02/09/20 05:25 MCH 24 pg (28-32) L 02/09/20 05:25 MCHC 31 % (32-34) L 02/09/20 05:25 RDW 23.8 % (13.2-15.2) H 02/09/20 05:25 Plt Count 97 K/mm3 (140-440) L 02/09/20 05:25 Lymph % (Auto) 37.4 % (13.4-35.0) H 02/09/20 05:25 [place] % (Auto) 13.5 % (0.0-7.3) H 02/09/20 05:25 Eos % (Auto) 1.7 % (0.0-4.3) 02/09/20 05:25 Baso % (Auto) 0.8 % (0.0-1.8) 02/09/20 05:25 Lymph # (Auto) 1.7 K/mm3 (1.2-5.4) 02/09/20 05:25 [place] # (Auto) 0.6 K/mm3 (0.0-0.8) 02/09/20 05:25 Eos # (Auto) 0.1 K/mm3 (0.0-0.4) 02/09/20 05:25 Baso # (Auto) 0.0 K/mm3 (0.0-0.1) 02/09/20 05:25 Add Manual Diff Complete 02/05/20 16:14 Total Counted 100 02/05/20 16:14 Seg Neutrophils % 46.6 % (40.0-70.0) 02/09/20 05:25 Seg Neuts % (Manual) 58.0 % (40.0-70.0) 02/05/20 16:14 Band Neutrophils % 0 % 02/05/20 16:14 Lymphocytes % (Manual) 33.0 % (13.4-35.0) 02/05/20 16:14 Reactive Lymphs % (Man) 0 % 02/05/20 16:14 Monocytes % (Manual) 8.0 % (0.0-7.3) H 02/05/20 16:14 Eosinophils % (Manual) 1.0 % (0.0-4.3) 02/05/20 16:14 Basophils % (Manual) 0 % (0.0-1.8) 02/05/20 16:14 Metamyelocytes % 0 % 02/05/20 16:14 Myelocytes % 0 % 02/05/20 16:14 Promyelocytes % 0 % 02/05/20 16:14 Blast Cells % 0 % 02/05/20 16:14 Nucleated RBC % Not Reportable 02/05/20 16:14 Seg Neutrophils # 2.1 K/mm3 (1.8-7.7) 02/09/20 05:25 Seg Neutrophils # Man 2.8 K/mm3 (1.8-7.7) 02/05/20 16:14 Band Neutrophils # 0.0 K/mm3 02/05/20 16:14 Lymphocytes # (Manual) 1.6 K/mm3 (1.2-5.4) 02/05/20 16:14 Abs React Lymphs (Man) 0.0 K/mm3 02/05/20 16:14 Monocytes # (Manual) 0.4 K/mm3 (0.0-0.8) 02/05/20 16:14 Eosinophils # (Manual) 0.0 K/mm3 (0.0-0.4) 02/05/20 16:14 Basophils # (Manual) 0.0 K/mm3 (0.0-0.1) 02/05/20 16:14 Metamyelocytes # 0.0 K/mm3 02/05/20 16:14 Myelocytes # 0.0 K/mm3 02/05/20 16:14 Promyelocytes # 0.0 K/mm3 02/05/20 16:14 Blast Cells # 0.0 K/mm3 02/05/20 16:14 WBC Morphology Not Reportable 02/05/20 16:14 Hypersegmented Neuts Not Reportable 02/05/20 16:14 Hyposegmented Neuts Not Reportable 02/05/20 16:14 Hypogranular Neuts Not Reportable 02/05/20 16:14 Smudge Cells Not Reportable 02/05/20 16:14 Toxic Granulation Not Reportable 02/05/20 16:14 Toxic Vacuolation Not Reportable 02/05/20 16:14 Dohle Bodies Not Reportable 02/05/20 16:14 Pelger-Huet Anomaly Not Reportable 02/05/20 16:14 [place] Rods Not Reportable 02/05/20 16:14 Platelet Estimate Not Reportable 02/05/20 16:14 Clumped Platelets Few 02/05/20 16:14 Plt Clumps, EDTA Not Reportable 02/05/20 16:14 Large Platelets Not Reportable 02/05/20 16:14 Giant Platelets Not Reportable 02/05/20 16:14 Platelet Satelliting Not Reportable 02/05/20 16:14 Plt Morphology Comment Not Reportable 02/05/20 16:14 RBC Morphology Not Reportable 02/05/20 16:14 Dimorphic RBCs Not Reportable 02/05/20 16:14 Polychromasia Not Reportable 02/05/20 16:14 Hypochromasia 1+ 02/05/20 16:14 Poikilocytosis Not Reportable 02/05/20 16:14 Anisocytosis 1+ 02/05/20 16:14 Microcytosis Few 02/05/20 16:14 Macrocytosis Not Reportable 02/05/20 16:14 Spherocytes Not Reportable 02/05/20 16:14 Pappenheimer Bodies Not Reportable 02/05/20 16:14 Sickle Cells Not Reportable 02/05/20 16:14 Target Cells Not Reportable 02/05/20 16:14 Tear Drop Cells Not Reportable 02/05/20 16:14 Ovalocytes Not Reportable 02/05/20 16:14 Helmet Cells Not Reportable 02/05/20 16:14 [place] Bodies Not Reportable 02/05/20 16:14 [place] Rings Not Reportable 02/05/20 16:14 [place] Cells Not Reportable 02/05/20 16:14 Bite Cells Not Reportable 02/05/20 16:14 Crenated Cell Not Reportable 02/05/20 16:14 Elliptocytes Not Reportable 02/05/20 16:14 Acanthocytes (Spur) Not Reportable 02/05/20 16:14 Rouleaux Not Reportable 02/05/20 16:14 Hemoglobin C Crystals Not Reportable 02/05/20 16:14 Schistocytes Not Reportable 02/05/20 16:14 Malaria parasites Not Reportable 02/05/20 16:14 [place] Bodies Not Reportable 02/05/20 16:14 Hem Pathologist Commnt No 02/05/20 16:14 Sodium 139 mmol/L (137-145) 02/09/20 05:25 Potassium 3.8 mmol/L (3.6-5.0) 02/09/20 05:25 Chloride 104.0 mmol/L (98-107) 02/09/20 05:25 Carbon Dioxide 21 mmol/L (22-30) L 02/09/20 05:25 Anion Gap 18 mmol/L 02/09/20 05:25 BUN 10 mg/dL (9-20) 02/09/20 05:25 Creatinine 0.8 mg/dL (0.8-1.3) 02/09/20 05:25 Estimated GFR > 60 ml/min 02/09/20 05:25 BUN/Creatinine Ratio 13 % 02/09/20 05:25 Glucose 95 mg/dL (75-100) 02/09/20 05:25 POC Glucose 98 (70-105) 02/10/20 08:06 Hemoglobin A1c 5.4 % (4-6) 02/06/20 04:58 Calcium 9.4 mg/dL (8.4-10.2) 02/09/20 05:25 Total Bilirubin 0.60 mg/dL (0.1-1.2) 02/08/20 17:58 Direct Bilirubin 0.3 mg/dL (0-0.2) H 02/05/20 17:51 Indirect Bilirubin 0.5 mg/dL 02/05/20 17:51 AST 59 units/L (5-40) H 02/08/20 17:58 ALT 50 units/L (7-56) 02/08/20 17:58 Alkaline Phosphatase 166 units/L (35-129) H 02/08/20 17:58 Total Protein 8.6 g/dL (6.3-8.2) H 02/08/20 17:58 Albumin 3.5 g/dL (3.9-5) L 02/08/20 17:58 Albumin/Globulin Ratio 0.7 % 02/08/20 17:58 Urine Color Yellow (Yellow) 02/05/20 17:47 Urine Turbidity Clear (Clear) 02/05/20 17:47 Urine pH 5.0 (5.0-7.0) 02/05/20 17:47 Ur Specific [place] 1.020 (1.003-1.030) 02/05/20 17:47 Urine Protein 100 mg/dl mg/dL (Negative) 02/05/20 17:47 Urine Glucose (UA) Neg mg/dL (Negative) 02/05/20 17:47 Urine Ketones 20 mg/dL (Negative) 02/05/20 17:47 Urine Blood Sm (Negative) 02/05/20 17:47 Urine Nitrite Neg (Negative) 02/05/20 17:47 Urine Bilirubin Neg (Negative) 02/05/20 17:47 Urine Urobilinogen 2.0 mg/dL (<2.0) 02/05/20 17:47 Ur Leukocyte Esterase Neg (Negative) 02/05/20 17:47 Urine WBC (Auto) 2.0 /HPF (0.0-6.0) 02/05/20 17:47 Urine RBC (Auto) 1.0 /HPF (0.0-6.0) 02/05/20 17:47 U Epithel Cells (Auto) < 1.0 /HPF (0-13.0) 02/05/20 17:47 Urine Mucus Few /HPF 02/05/20 17:47 Salicylates < 0.3 mg/dL (2.8-20.0) L 02/05/20 16:14 Urine Opiates Screen Presumptive negative 02/05/20 17:47 Urine Methadone Screen Presumptive negative 02/05/20 17:47 Acetaminophen 5.0 ug/mL (10.0-30.0) L 02/05/20 16:14 Ur Barbiturates Screen Presumptive negative 02/05/20 17:47 Ur Phencyclidine Scrn Presumptive negative 02/05/20 17:47 Ur Amphetamines Screen Presumptive negative 02/05/20 17:47 U Benzodiazepines Scrn Presumptive negative 02/05/20 17:47 Urine Cocaine Screen Presumptive negative 02/05/20 17:47 U Marijuana (THC) Screen Presumptive negative 02/05/20 17:47 Drugs of Abuse Note Disclamer 02/05/20 17:47 Plasma/Serum Alcohol < 0.01 % (0-0.07) 02/05/20 16:14 [place]ike/IV: Voiding Method Condom Catheter IV Catheter Type [Right INT / Saline Lock Forearm] IV Catheter Type [Right Hand] Peripheral IV Active Medications - Current Medications Current Medications: Generic Name Dose Route Start Last Admin Trade Name Freq PRN Reason Stop Dose Admin Acetaminophen 650 mg 02/05/20 22:45 Tylenol PO Q4H PRN Pain MILD(1-3)/Fever >100.5/GAMBINO Aspirin 325 mg 02/08/20 18:00 02/10/20 10:00 Aspirin PO 325 mg QDAY MICHAEL Administration Chlordiazepoxide HCl 25 mg 02/08/20 20:00 02/10/20 22:14 Librium PO 25 mg TID MICHAEL Administration Clopidogrel Bisulfate 75 mg 02/08/20 18:00 02/10/20 10:00 Plavix PO 75 mg QDAY MICHAEL Administration Famotidine 20 mg 02/07/20 22:00 02/10/20 22:14 Pepcid PO 20 mg BID MICHAEL Administration Dextrose/Sodium Chloride 1,000 mls @ 100 mls/hr 02/05/20 23:00 02/11/20 00:36 D5ns IV 100 mls/hr DIRECT MICHAEL Administration Labetalol HCl 10 mg 02/05/20 20:28 02/10/20 08:08 Labetalol IV 10 mg Q3HR PRN Administration Increased Blood Pressure Lorazepam 2 mg 02/05/20 15:32 02/11/20 00:36 Ativan IV 2 mg Q1HR PRN Administration CIWA-Ar 8-15 Lorazepam 4 mg 02/05/20 15:32 02/10/20 01:28 Ativan IV 4 mg Q1HR PRN Administration CIWA-Ar 16-25 Metoclopramide HCl 10 mg 02/05/20 22:45 Reglan IV Q6H PRN Nausea And Vomiting Metoprolol Tartrate 12.5 mg 02/08/20 22:00 02/10/20 22:14 Metoprolol PO 12.5 mg BID MICHAEL Administration Miscellaneous Medication 1 tab 02/08/20 17:30 Emtricitabin/Tenofovir [Truvada 200-300 Mg] PO QDAY [facility] Miscellaneous Medication 1 each 02/08/20 22:00 Lopinavir/Ritonavir (Nf) PO BID [facility] Morphine Sulfate 4 mg 02/05/20 22:45 02/10/20 04:41 Morphine IV 4 mg Q4H PRN Administration Pain , Severe (7-10) Ondansetron HCl 4 mg 02/05/20 22:45 02/10/20 01:28 Zofran IV 4 mg Q8H PRN Administration Nausea And Vomiting Oxycodone/Acetaminophen 1 tab 10/09/20 22:45 02/10/20 23:40 Percocet 5/325 PO 1 tab Q6H PRN Administration Pain, Moderate (4-6) Sodium Chloride 10 ml 02/06/20 10:00 02/10/20 22:15 Sodium Chloride Flush Syringe 10 Ml IV 10 ml BID MICHAEL Administration Sodium Chloride 10 ml 02/05/20 22:45 02/06/20 06:40 Sodium Chloride Flush Syringe 10 Ml IV 10 ml PRN PRN Administration LINE FLUSH
[2020-02-11] MEDS: FAMOTIDINE 20 MG TAB PO SCH ×2 (10:09→21:55)
[2020-02-11] MEDS: ASPIRIN 325 MG TAB PO SCH (10:09)
[2020-02-11] MEDS: CLOPIDOGREL 75 MG TAB PO SCH (10:10)
[2020-02-11] MEDS: METOPROLOL TARTRATE 25 MG TAB PO SCH ×2 (10:10→21:54)
[2020-02-11] MEDS: oxyCODONE /ACETAMINOPHEN 5-325MG TAB PO PRN ×2 (11:53→21:55)
[2020-02-12] MEDS: LORazepam 2 MG/ML VIAL IV PRN ×7 (02:26→22:03)
[2020-02-12] MEDS: D5W/0.9% NACL 1,000 ML IV SCH (02:29)
[2020-02-12] MEDS: MORPHINE 4 MG/1 ML INJ IV PRN ×4 (08:15→22:03)
[2020-02-12] MEDS: chlordiazePOXIDE 25 MG CAP PO SCH ×3 (08:15→19:43)
[2020-02-12] MEDS ORDERED: NICOTINE 14 MG/24 HR PATCH TD SCH (09:00)
[2020-02-12] MEDS: FAMOTIDINE 20 MG TAB PO SCH ×2 (10:21→21:56)
[2020-02-12] MEDS: ASPIRIN 325 MG TAB PO SCH (10:21)
[2020-02-12] MEDS: METOPROLOL TARTRATE 25 MG TAB PO SCH ×2 (10:21→21:56)
[2020-02-12] MEDS: CLOPIDOGREL 75 MG TAB PO SCH (10:21)
--- NOTE | 2020-02-12 12:32 | Progress Note ---
Assessment and Plan Assessment and plan: Alcohol withdrawal Patient remained significantly agitated despite CIWA protocol. Ativan appears to lost some effectiveness. Will change to Librium 50 mg 3 times daily. Alcohol withdrawal delirium Patient in active DTs required titration of medical management. CIWA protocol. Vitamins and supportive care has been initiated. DVT prophylaxis Fracture of metatarsal of left foot, closed Would not require surgical intervention. C Ortho evaluation. Hypertensive urgency Partially alcohol withdrawal may play some role. Will titrate accordingly. Clinic 157/95. HIV (human immunodeficiency virus infection) Resume antiretrovirals. 02/10/2020. Continue CIWA protocol. Supportive care. 02/11/2020. Patient CIWA score is approximately 8. Patient still requiring restraints for agitation. Continue CIWA protocol 02/12/2020. Patient remains agitated requiring restraints. Continue CIWA protocol. PT evaluation. History Interval history: No new issues overnight. Hospitalist Physical - Constitutional Vitals: Temp Pulse Resp BP Pulse Ox 98.7 F 69 18 168/80 97 02/12/20 11:52 02/12/20 11:52 02/12/20 11:52 02/12/20 11:52 02/12/20 11:52 General appearance: Present: no acute distress - EENT Eyes: Present: PERRL, EOM intact ENT: hearing intact, clear oral mucosa, dentition normal - Neck Neck: Present: supple, normal ROM - Respiratory Respiratory effort: normal Respiratory: bilateral: CTA - Cardiovascular Rhythm: regular Heart Sounds: Present: S1 & S2. Absent: gallop, rub - Extremities Extremities: no ischemia, No edema, Full ROM - Abdominal General gastrointestinal: soft, non-tender, non-distended, normal bowel sounds - Integumentary Integumentary: Present: clear, warm, dry - Neurologic Neurologic: CNII-XII intact, moves all extremities Results - Labs CBC & Chem 7: 02/09/20 05:25 02/09/20 05:25 Labs: Laboratory Last Values WBC 4.4 K/mm3 (4.5-11.0) L 02/09/20 05:25 RBC 4.60 M/mm3 (3.65-5.03) 02/09/20 05:25 Hgb 11.1 gm/dl (11.8-15.2) L 02/09/20 05:25 Hct 35.5 % (35.5-45.6) 02/09/20 05:25 MCV 77 fl (84-94) L 02/09/20 05:25 MCH 24 pg (28-32) L 02/09/20 05:25 MCHC 31 % (32-34) L 02/09/20 05:25 RDW 23.8 % (13.2-15.2) H 02/09/20 05:25 Plt Count 97 K/mm3 (140-440) L 02/09/20 05:25 Lymph % (Auto) 37.4 % (13.4-35.0) H 02/09/20 05:25 [place] % (Auto) 13.5 % (0.0-7.3) H 02/09/20 05:25 Eos % (Auto) 1.7 % (0.0-4.3) 02/09/20 05:25 Baso % (Auto) 0.8 % (0.0-1.8) 02/09/20 05:25 Lymph # (Auto) 1.7 K/mm3 (1.2-5.4) 02/09/20 05:25 [place] # (Auto) 0.6 K/mm3 (0.0-0.8) 02/09/20 05:25 Eos # (Auto) 0.1 K/mm3 (0.0-0.4) 02/09/20 05:25 Baso # (Auto) 0.0 K/mm3 (0.0-0.1) 02/09/20 05:25 Add Manual Diff Complete 02/05/20 16:14 Total Counted 100 02/05/20 16:14 Seg Neutrophils % 46.6 % (40.0-70.0) 02/09/20 05:25 Seg Neuts % (Manual) 58.0 % (40.0-70.0) 02/05/20 16:14 Band Neutrophils % 0 % 02/05/20 16:14 Lymphocytes % (Manual) 33.0 % (13.4-35.0) 02/05/20 16:14 Reactive Lymphs % (Man) 0 % 02/05/20 16:14 Monocytes % (Manual) 8.0 % (0.0-7.3) H 02/05/20 16:14 Eosinophils % (Manual) 1.0 % (0.0-4.3) 02/05/20 16:14 Basophils % (Manual) 0 % (0.0-1.8) 02/05/20 16:14 Metamyelocytes % 0 % 02/05/20 16:14 Myelocytes % 0 % 02/05/20 16:14 Promyelocytes % 0 % 02/05/20 16:14 Blast Cells % 0 % 02/05/20 16:14 Nucleated RBC % Not Reportable 02/05/20 16:14 Seg Neutrophils # 2.1 K/mm3 (1.8-7.7) 02/09/20 05:25 Seg Neutrophils # Man 2.8 K/mm3 (1.8-7.7) 02/05/20 16:14 Band Neutrophils # 0.0 K/mm3 02/05/20 16:14 Lymphocytes # (Manual) 1.6 K/mm3 (1.2-5.4) 02/05/20 16:14 Abs React Lymphs (Man) 0.0 K/mm3 02/05/20 16:14 Monocytes # (Manual) 0.4 K/mm3 (0.0-0.8) 02/05/20 16:14 Eosinophils # (Manual) 0.0 K/mm3 (0.0-0.4) 02/05/20 16:14 Basophils # (Manual) 0.0 K/mm3 (0.0-0.1) 02/05/20 16:14 Metamyelocytes # 0.0 K/mm3 02/05/20 16:14 Myelocytes # 0.0 K/mm3 02/05/20 16:14 Promyelocytes # 0.0 K/mm3 02/05/20 16:14 Blast Cells # 0.0 K/mm3 02/05/20 16:14 WBC Morphology Not Reportable 02/05/20 16:14 Hypersegmented Neuts Not Reportable 02/05/20 16:14 Hyposegmented Neuts Not Reportable 02/05/20 16:14 Hypogranular Neuts Not Reportable 02/05/20 16:14 Smudge Cells Not Reportable 02/05/20 16:14 Toxic Granulation Not Reportable 02/05/20 16:14 Toxic Vacuolation Not Reportable 02/05/20 16:14 Dohle Bodies Not Reportable 02/05/20 16:14 Pelger-Huet Anomaly Not Reportable 02/05/20 16:14 Esperanza Rods Not Reportable 02/05/20 16:14 Platelet Estimate Not Reportable 02/05/20 16:14 Clumped Platelets Few 02/05/20 16:14 Plt Clumps, EDTA Not Reportable 02/05/20 16:14 Large Platelets Not Reportable 02/05/20 16:14 Giant Platelets Not Reportable 02/05/20 16:14 Platelet Satelliting Not Reportable 02/05/20 16:14 Plt Morphology Comment Not Reportable 02/05/20 16:14 RBC Morphology Not Reportable 02/05/20 16:14 Dimorphic RBCs Not Reportable 02/05/20 16:14 Polychromasia Not Reportable 02/05/20 16:14 Hypochromasia 1+ 02/05/20 16:14 Poikilocytosis Not Reportable 02/05/20 16:14 Anisocytosis 1+ 02/05/20 16:14 Microcytosis Few 02/05/20 16:14 Macrocytosis Not Reportable 02/05/20 16:14 Spherocytes Not Reportable 02/05/20 16:14 Pappenheimer Bodies Not Reportable 02/05/20 16:14 Sickle Cells Not Reportable 02/05/20 16:14 Target Cells Not Reportable 02/05/20 16:14 Tear Drop Cells Not Reportable 02/05/20 16:14 Ovalocytes Not Reportable 02/05/20 16:14 Helmet Cells Not Reportable 02/05/20 16:14 [place] Bodies Not Reportable 02/05/20 16:14 [place] Rings Not Reportable 02/05/20 16:14 Master Cells Not Reportable 02/05/20 16:14 Bite Cells Not Reportable 02/05/20 16:14 Crenated Cell Not Reportable 02/05/20 16:14 Elliptocytes Not Reportable 02/05/20 16:14 Acanthocytes (Spur) Not Reportable 02/05/20 16:14 Rouleaux Not Reportable 02/05/20 16:14 Hemoglobin C Crystals Not Reportable 02/05/20 16:14 Schistocytes Not Reportable 02/05/20 16:14 Malaria parasites Not Reportable 02/05/20 16:14 Bobby Bodies Not Reportable 02/05/20 16:14 Hem Pathologist Commnt No 02/05/20 16:14 Sodium 139 mmol/L (137-145) 02/09/20 05:25 Potassium 3.8 mmol/L (3.6-5.0) 02/09/20 05:25 Chloride 104.0 mmol/L (98-107) 02/09/20 05:25 Carbon Dioxide 21 mmol/L (22-30) L 02/09/20 05:25 Anion Gap 18 mmol/L 02/09/20 05:25 BUN 10 mg/dL (9-20) 02/09/20 05:25 Creatinine 0.8 mg/dL (0.8-1.3) 02/09/20 05:25 Estimated GFR > 60 ml/min 02/09/20 05:25 BUN/Creatinine Ratio 13 % 02/09/20 05:25 Glucose 95 mg/dL (75-100) 02/09/20 05:25 POC Glucose 98 (70-105) 02/10/20 08:06 Hemoglobin A1c 5.4 % (4-6) 02/06/20 04:58 Calcium 9.4 mg/dL (8.4-10.2) 02/09/20 05:25 Total Bilirubin 0.60 mg/dL (0.1-1.2) 02/08/20 17:58 Direct Bilirubin 0.3 mg/dL (0-0.2) H 02/05/20 17:51 Indirect Bilirubin 0.5 mg/dL 02/05/20 17:51 AST 59 units/L (5-40) H 02/08/20 17:58 ALT 50 units/L (7-56) 02/08/20 17:58 Alkaline Phosphatase 166 units/L (35-129) H 02/08/20 17:58 Total Protein 8.6 g/dL (6.3-8.2) H 02/08/20 17:58 Albumin 3.5 g/dL (3.9-5) L 02/08/20 17:58 Albumin/Globulin Ratio 0.7 % 02/08/20 17:58 Urine Color Yellow (Yellow) 02/05/20 17:47 Urine Turbidity Clear (Clear) 02/05/20 17:47 Urine pH 5.0 (5.0-7.0) 02/05/20 17:47 Ur Specific [place] 1.020 (1.003-1.030) 02/05/20 17:47 Urine Protein 100 mg/dl mg/dL (Negative) 02/05/20 17:47 Urine Glucose (UA) Neg mg/dL (Negative) 02/05/20 17:47 Urine Ketones 20 mg/dL (Negative) 02/05/20 17:47 Urine Blood Sm (Negative) 02/05/20 17:47 Urine Nitrite Neg (Negative) 02/05/20 17:47 Urine Bilirubin Neg (Negative) 02/05/20 17:47 Urine Urobilinogen 2.0 mg/dL (<2.0) 02/05/20 17:47 Ur Leukocyte Esterase Neg (Negative) 02/05/20 17:47 Urine WBC (Auto) 2.0 /HPF (0.0-6.0) 02/05/20 17:47 Urine RBC (Auto) 1.0 /HPF (0.0-6.0) 02/05/20 17:47 U Epithel Cells (Auto) < 1.0 /HPF (0-13.0) 02/05/20 17:47 Urine Mucus Few /HPF 02/05/20 17:47 Salicylates < 0.3 mg/dL (2.8-20.0) L 02/05/20 16:14 Urine Opiates Screen Presumptive negative 02/05/20 17:47 Urine Methadone Screen Presumptive negative 02/05/20 17:47 Acetaminophen 5.0 ug/mL (10.0-30.0) L 02/05/20 16:14 Ur Barbiturates Screen Presumptive negative 02/05/20 17:47 Ur Phencyclidine Scrn Presumptive negative 02/05/20 17:47 Ur Amphetamines Screen Presumptive negative 02/05/20 17:47 U Benzodiazepines Scrn Presumptive negative 02/05/20 17:47 Urine Cocaine Screen Presumptive negative 02/05/20 17:47 U Marijuana (THC) Screen Presumptive negative 02/05/20 17:47 Drugs of Abuse Note Disclamer 02/05/20 17:47 Plasma/Serum Alcohol < 0.01 % (0-0.07) 02/05/20 16:14 [place]/IV: Voiding Method Urinal IV Catheter Type [Right INT / Saline Lock Forearm] IV Catheter Type [Right Hand] Peripheral IV Active Medications - Current Medications Current Medications: Generic Name Dose Route Start Last Admin Trade Name Freq PRN Reason Stop Dose Admin Acetaminophen 650 mg 02/05/20 22:45 Tylenol PO Q4H PRN Pain MILD(1-3)/Fever >100.5/GAMBINO Aspirin 325 mg 02/08/20 18:00 02/12/20 10:21 Aspirin PO 325 mg QDAY MICHAEL Administration Chlordiazepoxide HCl 25 mg 02/08/20 20:00 02/12/20 08:15 Librium PO 25 mg TID MICHAEL Administration Clopidogrel Bisulfate 75 mg 02/08/20 18:00 02/12/20 10:21 Plavix PO 75 mg QDAY MICHAEL Administration Famotidine 20 mg 02/07/20 22:00 02/12/20 10:21 Pepcid PO 20 mg BID [place]ALE Administration Dextrose/Sodium Chloride 1,000 mls @ 100 mls/hr 02/05/20 23:00 02/12/20 02:29 D5ns IV 100 mls/hr DIRECT MICHAEL Administration Labetalol HCl 10 mg 02/05/20 20:28 02/10/20 08:08 Labetalol IV 10 mg Q3HR PRN Administration Increased Blood Pressure Lorazepam 2 mg 02/05/20 15:32 02/12/20 08:15 Ativan IV 2 mg Q1HR PRN Administration [facility] 8-15 Lorazepam 4 mg 02/05/20 15:32 02/10/20 01:28 Ativan IV 4 mg Q1HR PRN Administration CIWA-Ar 16-25 Metoclopramide HCl 10 mg 02/05/20 22:45 Reglan IV Q6H PRN Nausea And Vomiting Metoprolol Tartrate 12.5 mg 02/08/20 22:00 02/12/20 10:21 Metoprolol PO 12.5 mg BID MICHAEL Administration Miscellaneous Medication 1 tab 02/08/20 17:30 Emtricitabin/Tenofovir [Truvada 200-300 Mg] PO QDAY [facility] Miscellaneous Medication 1 each 02/08/20 22:00 Lopinavir/Ritonavir (Nf) PO BID [facility] Morphine Sulfate 4 mg 02/05/20 22:45 02/12/20 08:15 Morphine IV 4 mg Q4H PRN Administration Pain , Severe (7-10) Nicotine 14 mg 02/12/20 09:00 02/12/20 10:17 Habitrol TD 02/12/20 13:00 14 mg ONCE MICHAEL Administration Ondansetron HCl 4 mg 02/05/20 22:45 02/10/20 01:28 Zofran IV 4 mg Q8H PRN Administration Nausea And Vomiting Oxycodone/Acetaminophen 1 tab 02/05/20 22:45 02/11/20 21:55 Percocet 5/325 PO 1 tab Q6H PRN Administration Pain, Moderate (4-6) Sodium Chloride 10 ml 02/06/20 10:00 02/12/20 10:22 Sodium Chloride Flush Syringe 10 Ml IV Not Given BID MICHAEL Sodium Chloride 10 ml 02/05/20 22:45 02/06/20 06:40 Sodium Chloride Flush Syringe 10 Ml IV 10 ml PRN PRN Administration LINE FLUSH Nutrition/Malnutrition Assess - Dietary Evaluation Nutrition/Malnutrition Findings: Nutrition Notes Start: 02/12/20 11:26 Freq: Status: Active Protocol: Document 02/12/20 11:26 MARCY (Rec: 02/12/20 11:48 MARCY [id number]) Co-Sign 02/12/20 11:26 LP Nutrition Notes Need for Assessment generated from: LOS Initial or Follow up Assessment Current Diagnosis Coronary Artery Disease, Hypertension,Stroke Other Pertinent Diagnosis HIV, ETOH withdrawal, pancreatitis, acidosis, pneu, L foot fracture Labs/Tests Reviewed Pertinent Medications D5NS 100ml/hr Height 6 ft 1 in Weight 91.5 kg [place] Body Weight (kg) 83.63 BMI 26.6 Weight Status Overweight Subjective/Other Information LOS screen. Pt seemed slightly confused at time of visit and wanted to go home. Noted pt in restraints. Reported stable wt for >1 year. During admission, appetite varies. Noted recent intakes dropped from 100% to 50%. 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 He receives Meals on Wheels. 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 He is not interested in diet education at this time. 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 #1 Nutrition Diagnosis Food and nutrition-related knowledge deficit,Other: ( Specify in comment below) Etiology disinterested in learning information As Evidenced by Signs and Symptoms pt verbalized disinterest in learning information Is patient on ventilator? No Is Patient Ambulatory and/or Out of Bed No REE-([facility]-confined to bed) [phone] Calculation Used for Recommendations [facility] Additional Notes Protein 0.8-1.0g/k-92g/kg Fluid: 1ml/kcal Nutrition Intervention Change Diet Order: Continue Cardiac diet Goal #1 Pt will meet at least 75% of energy and protein needs. Anticipated Discharge Needs: Cardiac diet (low sodium) Follow-Up By: 02/16/20 Additional Comments F/u intakes
[2020-02-13] MEDS: MORPHINE 4 MG/1 ML INJ IV PRN ×2 (04:28→14:35)
[2020-02-13] MEDS: LORazepam 2 MG/ML VIAL IV PRN ×6 (04:28→17:51)
--- NOTE | 2020-02-13 09:49 | Progress Note ---
Assessment and Plan Assessment and plan: Alcohol withdrawal Patient remained significantly agitated despite CIWA protocol. Ativan appears to lost some effectiveness. Will change to Librium 50 mg 3 times daily. Alcohol withdrawal delirium Patient in active DTs required titration of medical management. CIWA protocol. Vitamins and supportive care has been initiated. DVT prophylaxis Fracture of metatarsal of left foot, closed Would not require surgical intervention. C Ortho evaluation. Hypertensive urgency Partially alcohol withdrawal may play some role. Will titrate accordingly. HIV (human immunodeficiency virus infection) Resume antiretrovirals. 02/10/2020. Continue CIWA protocol. Supportive care. 02/11/2020. Patient CIWA score is approximately 8. Patient still requiring restraints for agitation. Continue CIWA protocol 02/12/2020. Patient remains agitated requiring restraints. Continue CIWA protocol. PT evaluation. 02/13/2020. Physical therapy recommends rolling walker with home health PT. History Interval history: No new issues overnight. Hospitalist Physical - Constitutional Vitals: Temp Pulse Resp BP Pulse Ox 98.3 F 62 18 213/106 99 02/13/20 09:10 02/13/20 09:10 02/13/20 09:10 02/13/20 09:10 02/13/20 09:10 General appearance: Present: no acute distress - EENT Eyes: Present: PERRL, EOM intact ENT: hearing intact, clear oral mucosa, dentition normal - Neck Neck: Present: supple, normal ROM - Respiratory Respiratory effort: normal Respiratory: bilateral: CTA - Cardiovascular Rhythm: regular Heart Sounds: Present: S1 & S2. Absent: gallop, rub - Extremities Extremities: no ischemia, No edema, Full ROM - Abdominal General gastrointestinal: soft, non-tender, non-distended, normal bowel sounds - Integumentary Integumentary: Present: clear, warm, dry - Neurologic Neurologic: CNII-XII intact, moves all extremities Results - Labs CBC & Chem 7: 02/09/20 05:25 02/09/20 05:25 Labs: Laboratory Last Values WBC 4.4 K/mm3 (4.5-11.0) L 02/09/20 05:25 RBC 4.60 M/mm3 (3.65-5.03) 02/09/20 05:25 Hgb 11.1 gm/dl (11.8-15.2) L 02/09/20 05:25 Hct 35.5 % (35.5-45.6) 02/09/20 05:25 MCV 77 fl (84-94) L 02/09/20 05:25 MCH 24 pg (28-32) L 02/09/20 05:25 MCHC 31 % (32-34) L 02/09/20 05:25 RDW 23.8 % (13.2-15.2) H 02/09/20 05:25 Plt Count 97 K/mm3 (140-440) L 02/09/20 05:25 Lymph % (Auto) 37.4 % (13.4-35.0) H 02/09/20 05:25 Perkins % (Auto) 13.5 % (0.0-7.3) H 02/09/20 05:25 Eos % (Auto) 1.7 % (0.0-4.3) 02/09/20 05:25 Baso % (Auto) 0.8 % (0.0-1.8) 02/09/20 05:25 Lymph # (Auto) 1.7 K/mm3 (1.2-5.4) 02/09/20 05:25 Perkins # (Auto) 0.6 K/mm3 (0.0-0.8) 02/09/20 05:25 Eos # (Auto) 0.1 K/mm3 (0.0-0.4) 02/09/20 05:25 Baso # (Auto) 0.0 K/mm3 (0.0-0.1) 02/09/20 05:25 Add Manual Diff Complete 02/05/20 16:14 Total Counted 100 02/05/20 16:14 Seg Neutrophils % 46.6 % (40.0-70.0) 02/09/20 05:25 Seg Neuts % (Manual) 58.0 % (40.0-70.0) 02/05/20 16:14 Band Neutrophils % 0 % 02/05/20 16:14 Lymphocytes % (Manual) 33.0 % (13.4-35.0) 02/05/20 16:14 Reactive Lymphs % (Man) 0 % 02/05/20 16:14 Monocytes % (Manual) 8.0 % (0.0-7.3) H 02/05/20 16:14 Eosinophils % (Manual) 1.0 % (0.0-4.3) 02/05/20 16:14 Basophils % (Manual) 0 % (0.0-1.8) 02/05/20 16:14 Metamyelocytes % 0 % 02/05/20 16:14 Myelocytes % 0 % 02/05/20 16:14 Promyelocytes % 0 % 02/05/20 16:14 Blast Cells % 0 % 02/05/20 16:14 Nucleated RBC % Not Reportable 02/05/20 16:14 Seg Neutrophils # 2.1 K/mm3 (1.8-7.7) 02/09/20 05:25 Seg Neutrophils # Man 2.8 K/mm3 (1.8-7.7) 02/05/20 16:14 Band Neutrophils # 0.0 K/mm3 02/05/20 16:14 Lymphocytes # (Manual) 1.6 K/mm3 (1.2-5.4) 02/05/20 16:14 Abs React Lymphs (Man) 0.0 K/mm3 02/05/20 16:14 Monocytes # (Manual) 0.4 K/mm3 (0.0-0.8) 02/05/20 16:14 Eosinophils # (Manual) 0.0 K/mm3 (0.0-0.4) 02/05/20 16:14 Basophils # (Manual) 0.0 K/mm3 (0.0-0.1) 02/05/20 16:14 Metamyelocytes # 0.0 K/mm3 02/05/20 16:14 Myelocytes # 0.0 K/mm3 02/05/20 16:14 Promyelocytes # 0.0 K/mm3 02/05/20 16:14 Blast Cells # 0.0 K/mm3 02/05/20 16:14 WBC Morphology Not Reportable 02/05/20 16:14 Hypersegmented Neuts Not Reportable 02/05/20 16:14 Hyposegmented Neuts Not Reportable 02/05/20 16:14 Hypogranular Neuts Not Reportable 02/05/20 16:14 Smudge Cells Not Reportable 02/05/20 16:14 Toxic Granulation Not Reportable 02/05/20 16:14 Toxic Vacuolation Not Reportable 02/05/20 16:14 Dohle Bodies Not Reportable 02/05/20 16:14 Pelger-Huet Anomaly Not Reportable 02/05/20 16:14 Esperanza Rods Not Reportable 02/05/20 16:14 Platelet Estimate Not Reportable 02/05/20 16:14 Clumped Platelets Few 02/05/20 16:14 Plt Clumps, EDTA Not Reportable 02/05/20 16:14 Large Platelets Not Reportable 02/05/20 16:14 Giant Platelets Not Reportable 02/05/20 16:14 Platelet Satelliting Not Reportable 02/05/20 16:14 Plt Morphology Comment Not Reportable 02/05/20 16:14 RBC Morphology Not Reportable 02/05/20 16:14 Dimorphic RBCs Not Reportable 02/05/20 16:14 Polychromasia Not Reportable 02/05/20 16:14 Hypochromasia 1+ 02/05/20 16:14 Poikilocytosis Not Reportable 02/05/20 16:14 Anisocytosis 1+ 02/05/20 16:14 Microcytosis Few 02/05/20 16:14 Macrocytosis Not Reportable 02/05/20 16:14 Spherocytes Not Reportable 02/05/20 16:14 Pappenheimer Bodies Not Reportable 02/05/20 16:14 Sickle Cells Not Reportable 02/05/20 16:14 Target Cells Not Reportable 02/05/20 16:14 Tear Drop Cells Not Reportable 02/05/20 16:14 Ovalocytes Not Reportable 02/05/20 16:14 Helmet Cells Not Reportable 02/05/20 16:14 Sargent-Roebuck Bodies Not Reportable 02/05/20 16:14 [place] Rings Not Reportable 02/05/20 16:14 Master Cells Not Reportable 02/05/20 16:14 Bite Cells Not Reportable 02/05/20 16:14 Crenated Cell Not Reportable 02/05/20 16:14 Elliptocytes Not Reportable 02/05/20 16:14 Acanthocytes (Spur) Not Reportable 02/05/20 16:14 Rouleaux Not Reportable 02/05/20 16:14 Hemoglobin C Crystals Not Reportable 02/05/20 16:14 Schistocytes Not Reportable 02/05/20 16:14 Malaria parasites Not Reportable 02/05/20 16:14 Bobby Bodies Not Reportable 02/05/20 16:14 Hem Pathologist Commnt No 02/05/20 16:14 Sodium 139 mmol/L (137-145) 02/09/20 05:25 Potassium 3.8 mmol/L (3.6-5.0) 02/09/20 05:25 Chloride 104.0 mmol/L (98-107) 02/09/20 05:25 Carbon Dioxide 21 mmol/L (22-30) L 02/09/20 05:25 Anion Gap 18 mmol/L 02/09/20 05:25 BUN 10 mg/dL (9-20) 02/09/20 05:25 Creatinine 0.8 mg/dL (0.8-1.3) 02/09/20 05:25 Estimated GFR > 60 ml/min 02/09/20 05:25 BUN/Creatinine Ratio 13 % 02/09/20 05:25 Glucose 95 mg/dL (75-100) 02/09/20 05:25 POC Glucose 98 (70-105) 02/10/20 08:06 Hemoglobin A1c 5.4 % (4-6) 02/06/20 04:58 Calcium 9.4 mg/dL (8.4-10.2) 02/09/20 05:25 Total Bilirubin 0.60 mg/dL (0.1-1.2) 02/08/20 17:58 Direct Bilirubin 0.3 mg/dL (0-0.2) H 02/05/20 17:51 Indirect Bilirubin 0.5 mg/dL 02/05/20 17:51 AST 59 units/L (5-40) H 02/08/20 17:58 ALT 50 units/L (7-56) 02/08/20 17:58 Alkaline Phosphatase 166 units/L (35-129) H 02/08/20 17:58 Total Protein 8.6 g/dL (6.3-8.2) H 02/08/20 17:58 Albumin 3.5 g/dL (3.9-5) L 02/08/20 17:58 Albumin/Globulin Ratio 0.7 % 02/08/20 17:58 Urine Color Yellow (Yellow) 02/05/20 17:47 Urine Turbidity Clear (Clear) 02/05/20 17:47 Urine pH 5.0 (5.0-7.0) 02/05/20 17:47 Ur Specific [place] 1.020 (1.003-1.030) 02/05/20 17:47 Urine Protein 100 mg/dl mg/dL (Negative) 02/05/20 17:47 Urine Glucose (UA) Neg mg/dL (Negative) 02/05/20 17:47 Urine Ketones 20 mg/dL (Negative) 02/05/20 17:47 Urine Blood Sm (Negative) 02/05/20 17:47 Urine Nitrite Neg (Negative) 02/05/20 17:47 Urine Bilirubin Neg (Negative) 02/05/20 17:47 Urine Urobilinogen 2.0 mg/dL (<2.0) 02/05/20 17:47 Ur Leukocyte Esterase Neg (Negative) 02/05/20 17:47 Urine WBC (Auto) 2.0 /HPF (0.0-6.0) 02/05/20 17:47 Urine RBC (Auto) 1.0 /HPF (0.0-6.0) 02/05/20 17:47 U Epithel Cells (Auto) < 1.0 /HPF (0-13.0) 02/05/20 17:47 Urine Mucus Few /HPF 02/05/20 17:47 Salicylates < 0.3 mg/dL (2.8-20.0) L 02/05/20 16:14 Urine Opiates Screen Presumptive negative 02/05/20 17:47 Urine Methadone Screen Presumptive negative 02/05/20 17:47 Acetaminophen 5.0 ug/mL (10.0-30.0) L 02/05/20 16:14 Ur Barbiturates Screen Presumptive negative 02/05/20 17:47 Ur Phencyclidine Scrn Presumptive negative 02/05/20 17:47 Ur Amphetamines Screen Presumptive negative 02/05/20 17:47 U Benzodiazepines Scrn Presumptive negative 02/05/20 17:47 Urine Cocaine Screen Presumptive negative 02/05/20 17:47 U Marijuana (THC) Screen Presumptive negative 02/05/20 17:47 Drugs of Abuse Note Disclamer 02/05/20 17:47 Plasma/Serum Alcohol < 0.01 % (0-0.07) 02/05/20 16:14 Pike/IV: Voiding Method Urinal IV Catheter Type [Left Forearm INT / Saline Lock ] IV Catheter Type [Right INT / Saline Lock Forearm] IV Catheter Type [Right Hand] Peripheral IV Active Medications - Current Medications Current Medications: Generic Name Dose Route Start Last Admin Trade Name Freq PRN Reason Stop Dose Admin Acetaminophen 650 mg 02/05/20 22:45 Tylenol PO Q4H PRN Pain MILD(1-3)/Fever >100.5/GAMBINO Aspirin 325 mg 02/08/20 18:00 02/12/20 10:21 Aspirin PO 325 mg QDAY MICHAEL Administration Chlordiazepoxide HCl 25 mg 02/08/20 20:00 02/12/20 19:43 Librium PO 25 mg TID MICHAEL Administration Clopidogrel Bisulfate 75 mg 02/08/20 18:00 02/12/20 10:21 Plavix PO 75 mg QDAY MICHAEL Administration Famotidine 20 mg 02/07/20 22:00 02/12/20 21:56 Pepcid PO 20 mg BID MICHAEL Administration Dextrose/Sodium Chloride 1,000 mls @ 100 mls/hr 02/05/20 23:00 02/12/20 02:29 D5ns IV 100 mls/hr DIRECT MICHAEL Administration Labetalol HCl 10 mg 02/05/20 20:28 02/12/20 19:44 Labetalol IV 10 mg Q3HR PRN Administration Increased Blood Pressure Lorazepam 2 mg 02/05/20 15:32 02/13/20 06:43 Ativan IV 2 mg Q1HR PRN Administration CIWA-Ar 8-15 Lorazepam 4 mg 02/05/20 15:32 02/12/20 20:44 Ativan IV 4 mg Q1HR PRN Administration CIWA-Ar 16-25 Metoclopramide HCl 10 mg 02/05/20 22:45 Reglan IV Q6H PRN Nausea And Vomiting Metoprolol Tartrate 12.5 mg 02/08/20 22:00 02/12/20 21:56 Metoprolol PO 12.5 mg BID MICHAEL Administration Miscellaneous Medication 1 tab 02/08/20 17:30 Emtricitabin/Tenofovir [Truvada 200-300 Mg] PO QDAY [facility] Miscellaneous Medication 1 each 02/08/20 22:00 Lopinavir/Ritonavir (Nf) PO BID [facility] Morphine Sulfate 4 mg 02/05/20 22:45 02/13/20 04:28 Morphine IV 4 mg Q4H PRN Administration Pain , Severe (7-10) Ondansetron HCl 4 mg 02/05/20 22:45 02/10/20 01:28 Zofran IV 4 mg Q8H PRN Administration Nausea And Vomiting Oxycodone/Acetaminophen 1 tab 02/05/20 22:45 02/11/20 21:55 Percocet 5/325 PO 1 tab Q6H PRN Administration Pain, Moderate (4-6) Sodium Chloride 10 ml 02/06/20 10:00 02/12/20 22:11 Sodium Chloride Flush Syringe 10 Ml IV 10 ml BID MICHAEL Administration Sodium Chloride 10 ml 02/05/20 22:45 02/06/20 06:40 Sodium Chloride Flush Syringe 10 Ml IV 10 ml PRN PRN Administration LINE FLUSH Nutrition/Malnutrition Assess - Dietary Evaluation Nutrition/Malnutrition Findings: Nutrition Notes Start: 02/12/20 11:26 Freq: Status: Active Protocol: Document 02/12/20 11:26 MARCY (Rec: 02/12/20 11:48 MARCY [id number]) Co-Sign 02/12/20 11:26 LP Nutrition Notes Need for Assessment generated from: LOS Initial or Follow up Assessment Current Diagnosis Coronary Artery Disease, Hypertension,Stroke Other Pertinent Diagnosis HIV, ETOH withdrawal, pancreatitis, acidosis, pneu, L foot fracture Labs/Tests Reviewed Pertinent Medications D5NS 100ml/hr Height 6 ft 1 in Weight 91.5 kg [place] Body Weight (kg) 83.63 BMI 26.6 Weight Status Overweight Subjective/Other Information LOS screen. Pt seemed slightly confused at time of visit and wanted to go home. Noted pt in restraints. Reported stable wt for >1 year. During admission, appetite varies. Noted recent intakes dropped from 100% to 50%. PNP, he eats the most at night. He receives Meals on Wheels. 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 He is not interested in diet education at this time. Percent of energy/protein needs met: 49%/57% Burn Absent Trauma Absent GI Symptoms None Usual Diet at Home Meals on Wheels Current % PO Fair (50-74%) Minimum of two criteria No physical signs of malnutrition #2 Nutrition Diagnosis Inadequate oral intake Etiology limited food acceptance As Evidenced by Signs and Symptoms PNP, pt reported usual appetite lower during the day and eats most of his food at night d/t excessive intake of ETOH and during adm meal times are not pt's preferences. #1 Nutrition Diagnosis Food and nutrition-related knowledge deficit,Other: ( Specify in comment below) Etiology disinterested in learning information As Evidenced by Signs and Symptoms pt verbalized disinterest in learning information Is patient on ventilator? No Is Patient Ambulatory and/or Out of Bed No REE-([place]-St. Jeor-confined to bed) 5232.159 Calculation Used for Recommendations [facility] Additional Notes Protein 0.8-1.0g/k-92g/kg Fluid: 1ml/kcal Nutrition Intervention Change Diet Order: Continue Cardiac diet Goal #1 Pt will meet at least 75% of energy and protein needs. Anticipated Discharge Needs: Cardiac diet (low sodium) Follow-Up By: 02/16/20 Additional Comments F/u intakes
[2020-02-13] MEDS: D5W/0.9% NACL 1,000 ML IV SCH (11:38)
[2020-02-13] MEDS: ASPIRIN 325 MG TAB PO SCH (11:41)
[2020-02-13] MEDS: METOPROLOL TARTRATE 25 MG TAB PO SCH ×2 (11:41→21:39)
[2020-02-13] MEDS: chlordiazePOXIDE 25 MG CAP PO SCH ×3 (11:41→21:38)
[2020-02-13] MEDS: oxyCODONE /ACETAMINOPHEN 5-325MG TAB PO PRN (11:41)
[2020-02-13] MEDS: CLOPIDOGREL 75 MG TAB PO SCH (11:41)
[2020-02-13] MEDS: FAMOTIDINE 20 MG TAB PO SCH ×2 (11:41→21:39)
--- NOTE | 2020-02-14 09:38 | Progress Note ---
Assessment and Plan Assessment and plan: Alcohol withdrawal Patient remained significantly agitated despite CIWA protocol. Ativan appears to lost some effectiveness. Will change to Librium 50 mg 3 times daily. Alcohol withdrawal delirium Patient in active DTs required titration of medical management. CIWA protocol. Vitamins and supportive care has been initiated. DVT prophylaxis Fracture of metatarsal of left foot, closed Would not require surgical intervention. C Ortho evaluation. Hypertensive urgency Partially alcohol withdrawal may play some role. Will titrate accordingly. HIV (human immunodeficiency virus infection) Resume antiretrovirals. 02/10/2020. Continue CIWA protocol. Supportive care. 02/11/2020. Patient CIWA score is approximately 8. Patient still requiring restraints for agitation. Continue CIWA protocol 02/12/2020. Patient remains agitated requiring restraints. Continue CIWA protocol. PT evaluation. 02/13/2020. Physical therapy recommends rolling walker with home health PT. 02/14/2020. Nurse reports CIWA score of 10. Continue CIWA protocol. History Interval history: No new issues overnight. Hospitalist Physical - Constitutional Vitals: Temp Pulse Resp BP Pulse Ox 98.9 F 76 20 175/97 96 02/14/20 08:11 02/14/20 08:11 02/14/20 08:11 02/14/20 08:11 02/14/20 08:11 General appearance: Present: no acute distress - EENT Eyes: Present: PERRL, EOM intact ENT: hearing intact, clear oral mucosa, dentition normal - Neck Neck: Present: supple, normal ROM - Respiratory Respiratory effort: normal Respiratory: bilateral: CTA - Cardiovascular Rhythm: regular Heart Sounds: Present: S1 & S2. Absent: gallop, rub - Extremities Extremities: no ischemia, No edema, Full ROM - Abdominal General gastrointestinal: soft, non-tender, non-distended, normal bowel sounds - Integumentary Integumentary: Present: clear, warm, dry - Neurologic Neurologic: CNII-XII intact, moves all extremities Results - Labs CBC & Chem 7: 02/09/20 05:25 02/09/20 05:25 Labs: Laboratory Last Values WBC 4.4 K/mm3 (4.5-11.0) L 02/09/20 05:25 RBC 4.60 M/mm3 (3.65-5.03) 02/09/20 05:25 Hgb 11.1 gm/dl (11.8-15.2) L 02/09/20 05:25 Hct 35.5 % (35.5-45.6) 02/09/20 05:25 MCV 77 fl (84-94) L 02/09/20 05:25 MCH 24 pg (28-32) L 02/09/20 05:25 MCHC 31 % (32-34) L 02/09/20 05:25 RDW 23.8 % (13.2-15.2) H 02/09/20 05:25 Plt Count 97 K/mm3 (140-440) L 02/09/20 05:25 Lymph % (Auto) 37.4 % (13.4-35.0) H 02/09/20 05:25 [place] % (Auto) 13.5 % (0.0-7.3) H 02/09/20 05:25 Eos % (Auto) 1.7 % (0.0-4.3) 02/09/20 05:25 Baso % (Auto) 0.8 % (0.0-1.8) 02/09/20 05:25 Lymph # (Auto) 1.7 K/mm3 (1.2-5.4) 02/09/20 05:25 [place] # (Auto) 0.6 K/mm3 (0.0-0.8) 02/09/20 05:25 Eos # (Auto) 0.1 K/mm3 (0.0-0.4) 02/09/20 05:25 Baso # (Auto) 0.0 K/mm3 (0.0-0.1) 02/09/20 05:25 Add Manual Diff Complete 02/05/20 16:14 Total Counted 100 02/05/20 16:14 Seg Neutrophils % 46.6 % (40.0-70.0) 02/09/20 05:25 Seg Neuts % (Manual) 58.0 % (40.0-70.0) 02/05/20 16:14 Band Neutrophils % 0 % 02/05/20 16:14 Lymphocytes % (Manual) 33.0 % (13.4-35.0) 02/05/20 16:14 Reactive Lymphs % (Man) 0 % 02/05/20 16:14 Monocytes % (Manual) 8.0 % (0.0-7.3) H 02/05/20 16:14 Eosinophils % (Manual) 1.0 % (0.0-4.3) 02/05/20 16:14 Basophils % (Manual) 0 % (0.0-1.8) 02/05/20 16:14 Metamyelocytes % 0 % 02/05/20 16:14 Myelocytes % 0 % 02/05/20 16:14 Promyelocytes % 0 % 02/05/20 16:14 Blast Cells % 0 % 02/05/20 16:14 Nucleated RBC % Not Reportable 02/05/20 16:14 Seg Neutrophils # 2.1 K/mm3 (1.8-7.7) 02/09/20 05:25 Seg Neutrophils # Man 2.8 K/mm3 (1.8-7.7) 02/05/20 16:14 Band Neutrophils # 0.0 K/mm3 02/05/20 16:14 Lymphocytes # (Manual) 1.6 K/mm3 (1.2-5.4) 02/05/20 16:14 Abs React Lymphs (Man) 0.0 K/mm3 02/05/20 16:14 Monocytes # (Manual) 0.4 K/mm3 (0.0-0.8) 02/05/20 16:14 Eosinophils # (Manual) 0.0 K/mm3 (0.0-0.4) 02/05/20 16:14 Basophils # (Manual) 0.0 K/mm3 (0.0-0.1) 02/05/20 16:14 Metamyelocytes # 0.0 K/mm3 02/05/20 16:14 Myelocytes # 0.0 K/mm3 02/05/20 16:14 Promyelocytes # 0.0 K/mm3 02/05/20 16:14 Blast Cells # 0.0 K/mm3 02/05/20 16:14 WBC Morphology Not Reportable 02/05/20 16:14 Hypersegmented Neuts Not Reportable 02/05/20 16:14 Hyposegmented Neuts Not Reportable 02/05/20 16:14 Hypogranular Neuts Not Reportable 02/05/20 16:14 Smudge Cells Not Reportable 02/05/20 16:14 Toxic Granulation Not Reportable 02/05/20 16:14 Toxic Vacuolation Not Reportable 02/05/20 16:14 Dohle Bodies Not Reportable 02/05/20 16:14 Pelger-Huet Anomaly Not Reportable 02/05/20 16:14 Esperanza Rods Not Reportable 02/05/20 16:14 Platelet Estimate Not Reportable 02/05/20 16:14 Clumped Platelets Few 02/05/20 16:14 Plt Clumps, EDTA Not Reportable 02/05/20 16:14 Large Platelets Not Reportable 02/05/20 16:14 Giant Platelets Not Reportable 02/05/20 16:14 Platelet Satelliting Not Reportable 02/05/20 16:14 Plt Morphology Comment Not Reportable 02/05/20 16:14 RBC Morphology Not Reportable 02/05/20 16:14 Dimorphic RBCs Not Reportable 02/05/20 16:14 Polychromasia Not Reportable 02/05/20 16:14 Hypochromasia 1+ 02/05/20 16:14 Poikilocytosis Not Reportable 02/05/20 16:14 Anisocytosis 1+ 02/05/20 16:14 Microcytosis Few 02/05/20 16:14 Macrocytosis Not Reportable 02/05/20 16:14 Spherocytes Not Reportable 02/05/20 16:14 Pappenheimer Bodies Not Reportable 02/05/20 16:14 Sickle Cells Not Reportable 02/05/20 16:14 Target Cells Not Reportable 02/05/20 16:14 Tear Drop Cells Not Reportable 02/05/20 16:14 Ovalocytes Not Reportable 02/05/20 16:14 Helmet Cells Not Reportable 02/05/20 16:14 [place] Bodies Not Reportable 02/05/20 16:14 [place] Rings Not Reportable 02/05/20 16:14 [place] Cells Not Reportable 02/05/20 16:14 Bite Cells Not Reportable 02/05/20 16:14 Crenated Cell Not Reportable 02/05/20 16:14 Elliptocytes Not Reportable 02/05/20 16:14 Acanthocytes (Spur) Not Reportable 02/05/20 16:14 Rouleaux Not Reportable 02/05/20 16:14 Hemoglobin C Crystals Not Reportable 02/05/20 16:14 Schistocytes Not Reportable 02/05/20 16:14 Malaria parasites Not Reportable 02/05/20 16:14 Bobby Bodies Not Reportable 02/05/20 16:14 Hem Pathologist Commnt No 02/05/20 16:14 Sodium 139 mmol/L (137-145) 02/09/20 05:25 Potassium 3.8 mmol/L (3.6-5.0) 02/09/20 05:25 Chloride 104.0 mmol/L (98-107) 02/09/20 05:25 Carbon Dioxide 21 mmol/L (22-30) L 02/09/20 05:25 Anion Gap 18 mmol/L 02/09/20 05:25 BUN 10 mg/dL (9-20) 02/09/20 05:25 Creatinine 0.8 mg/dL (0.8-1.3) 02/09/20 05:25 Estimated GFR > 60 ml/min 02/09/20 05:25 BUN/Creatinine Ratio 13 % 02/09/20 05:25 Glucose 95 mg/dL (75-100) 02/09/20 05:25 POC Glucose 79 (70-105) 02/14/20 08:25 Hemoglobin A1c 5.4 % (4-6) 02/06/20 04:58 Calcium 9.4 mg/dL (8.4-10.2) 02/09/20 05:25 Total Bilirubin 0.60 mg/dL (0.1-1.2) 02/08/20 17:58 Direct Bilirubin 0.3 mg/dL (0-0.2) H 02/05/20 17:51 Indirect Bilirubin 0.5 mg/dL 02/05/20 17:51 AST 59 units/L (5-40) H 02/08/20 17:58 ALT 50 units/L (7-56) 02/08/20 17:58 Alkaline Phosphatase 166 units/L (35-129) H 02/08/20 17:58 Total Protein 8.6 g/dL (6.3-8.2) H 02/08/20 17:58 Albumin 3.5 g/dL (3.9-5) L 02/08/20 17:58 Albumin/Globulin Ratio 0.7 % 02/08/20 17:58 Urine Color Yellow (Yellow) 02/05/20 17:47 Urine Turbidity Clear (Clear) 02/05/20 17:47 Urine pH 5.0 (5.0-7.0) 02/05/20 17:47 Ur Specific [place] 1.020 (1.003-1.030) 02/05/20 17:47 Urine Protein 100 mg/dl mg/dL (Negative) 02/05/20 17:47 Urine Glucose (UA) Neg mg/dL (Negative) 02/05/20 17:47 Urine Ketones 20 mg/dL (Negative) 02/05/20 17:47 Urine Blood Sm (Negative) 02/05/20 17:47 Urine Nitrite Neg (Negative) 02/05/20 17:47 Urine Bilirubin Neg (Negative) 02/05/20 17:47 Urine Urobilinogen 2.0 mg/dL (<2.0) 02/05/20 17:47 Ur Leukocyte Esterase Neg (Negative) 02/05/20 17:47 Urine WBC (Auto) 2.0 /HPF (0.0-6.0) 02/05/20 17:47 Urine RBC (Auto) 1.0 /HPF (0.0-6.0) 02/05/20 17:47 U Epithel Cells (Auto) < 1.0 /HPF (0-13.0) 02/05/20 17:47 Urine Mucus Few /HPF 02/05/20 17:47 Salicylates < 0.3 mg/dL (2.8-20.0) L 02/05/20 16:14 Urine Opiates Screen Presumptive negative 02/05/20 17:47 Urine Methadone Screen Presumptive negative 02/05/20 17:47 Acetaminophen 5.0 ug/mL (10.0-30.0) L 02/05/20 16:14 Ur Barbiturates Screen Presumptive negative 02/05/20 17:47 Ur Phencyclidine Scrn Presumptive negative 02/05/20 17:47 Ur Amphetamines Screen Presumptive negative 02/05/20 17:47 U Benzodiazepines Scrn Presumptive negative 02/05/20 17:47 Urine Cocaine Screen Presumptive negative 02/05/20 17:47 U Marijuana (THC) Screen Presumptive negative 02/05/20 17:47 Drugs of Abuse Note Disclamer 02/05/20 17:47 Plasma/Serum Alcohol < 0.01 % (0-0.07) 02/05/20 16:14 Pike/IV: Voiding Method Condom Catheter IV Catheter Type [Right Wrist] Peripheral IV IV Catheter Type [Left Forearm INT / Saline Lock ] IV Catheter Type [Right INT / Saline Lock Forearm] IV Catheter Type [Right Hand] Peripheral IV Active Medications - Current Medications Current Medications: Generic Name Dose Route Start Last Admin Trade Name Freq PRN Reason Stop Dose Admin Acetaminophen 650 mg 02/05/20 22:45 Tylenol PO Q4H PRN Pain MILD(1-3)/Fever >100.5/GAMBINO Aspirin 325 mg 02/08/20 18:00 02/13/20 11:41 Aspirin PO 325 mg QDAY MICHAEL Administration Chlordiazepoxide HCl 25 mg 02/08/20 20:00 02/13/20 21:38 Librium PO 25 mg TID MICHAEL Administration Clopidogrel Bisulfate 75 mg 02/08/20 18:00 02/13/20 11:41 Plavix PO 75 mg QDAY MICHAEL Administration Famotidine 20 mg 02/07/20 22:00 02/13/20 21:39 Pepcid PO 20 mg BID MICHAEL Administration Dextrose/Sodium Chloride 1,000 mls @ 100 mls/hr 02/05/20 23:00 02/13/20 11:38 D5ns IV 100 mls/hr DIRECT MICHAEL Administration Labetalol HCl 10 mg 02/05/20 20:28 02/12/20 19:44 Labetalol IV 10 mg Q3HR PRN Administration Increased Blood Pressure Lorazepam 2 mg 02/05/20 15:32 02/13/20 15:45 Ativan IV 2 mg Q1HR PRN Administration CIWA-Ar 8-15 Lorazepam 4 mg 02/05/20 15:32 02/13/20 17:51 Ativan IV 4 mg Q1HR PRN Administration CIWA-Ar 16-25 Metoclopramide HCl 10 mg 02/05/20 22:45 Reglan IV Q6H PRN Nausea And Vomiting Metoprolol Tartrate 12.5 mg 02/08/20 22:00 02/13/20 21:39 Metoprolol PO 12.5 mg BID MICHAEL Administration Miscellaneous Medication 1 tab 02/08/20 17:30 Emtricitabin/Tenofovir [Truvada 200-300 Mg] PO QDAY [facility] Miscellaneous Medication 1 each 02/08/20 22:00 Lopinavir/Ritonavir (Nf) PO BID [facility] Morphine Sulfate 4 mg 02/05/20 22:45 02/13/20 14:35 Morphine IV 4 mg Q4H PRN Administration Pain , Severe (7-10) Ondansetron HCl 4 mg 02/05/20 22:45 02/10/20 01:28 Zofran IV 4 mg Q8H PRN Administration Nausea And Vomiting Oxycodone/Acetaminophen 1 tab 02/05/20 22:45 02/13/20 11:41 Percocet 5/325 PO 1 tab Q6H PRN Administration Pain, Moderate (4-6) Sodium Chloride 10 ml 02/06/20 10:00 02/13/20 21:39 Sodium Chloride Flush Syringe 10 Ml IV 10 ml BID MICHAEL Administration Sodium Chloride 10 ml 02/05/20 22:45 02/06/20 06:40 Sodium Chloride Flush Syringe 10 Ml IV 10 ml PRN PRN Administration LINE FLUSH Nutrition/Malnutrition Assess - Dietary Evaluation Nutrition/Malnutrition Findings: Nutrition Notes Start: 02/12/20 11:26 Freq: Status: Active Protocol: Document 02/12/20 11:26 MARCY (Rec: 02/12/20 11:48 MARCY [id number]) Co-Sign 02/12/20 11:26 LP Nutrition Notes Need for Assessment generated from: LOS Initial or Follow up Assessment Current Diagnosis Coronary Artery Disease, Hypertension,Stroke Other Pertinent Diagnosis HIV, ETOH withdrawal, pancreatitis, acidosis, pneu, L foot fracture Labs/Tests Reviewed Pertinent Medications D5NS 100ml/hr Height 6 ft 1 in Weight 91.5 kg [place] Body Weight (kg) 83.63 BMI 26.6 Weight Status Overweight Subjective/Other Information LOS screen. Pt seemed slightly confused at time of visit and wanted to go home. Noted pt in restraints. Reported stable wt for >1 year. During admission, appetite varies. Noted recent intakes dropped from 100% to 50%. [employer], he eats the most at night. He receives Meals on Wheels. 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 He is not interested in diet education at this time. Percent of energy/protein needs met: 49%/57% Burn Absent Trauma Absent GI Symptoms None Usual Diet at Home Meals on Wheels Current % PO Fair (50-74%) Minimum of two criteria No physical signs of malnutrition #2 Nutrition Diagnosis Inadequate oral intake Etiology limited food acceptance As Evidenced by Signs and Symptoms [employer], pt reported usual appetite lower during the day and eats most of his food at night d/t excessive intake of ETOH and during adm meal times are not pt's preferences. #1 Nutrition Diagnosis Food and nutrition-related knowledge deficit,Other: ( Specify in comment below) Etiology disinterested in learning information As Evidenced by Signs and Symptoms pt verbalized disinterest in learning information Is patient on ventilator? No Is Patient Ambulatory and/or Out of Bed No REE-([facility]-confined to bed) [phone] Calculation Used for Recommendations [facility] Additional Notes Protein 0.8-1.0g/k-92g/kg Fluid: 1ml/kcal Nutrition Intervention Change Diet Order: Continue Cardiac diet Goal #1 Pt will meet at least 75% of energy and protein needs. Anticipated Discharge Needs: Cardiac diet (low sodium) Follow-Up By: 02/16/20 Additional Comments F/u intakes
[2020-02-14] MEDS: METOPROLOL TARTRATE 25 MG TAB PO SCH ×2 (09:48→22:24)
[2020-02-14] MEDS: CLOPIDOGREL 75 MG TAB PO SCH (09:48)
[2020-02-14] MEDS: chlordiazePOXIDE 25 MG CAP PO SCH ×3 (09:49→22:25)
[2020-02-14] MEDS: ASPIRIN 325 MG TAB PO SCH (09:49)
[2020-02-14] MEDS: FAMOTIDINE 20 MG TAB PO SCH ×2 (09:49→22:24)
[2020-02-15] MEDS: D5W/0.9% NACL 1,000 ML IV SCH (05:27)
[2020-02-15] MEDS: CLOPIDOGREL 75 MG TAB PO SCH (09:32)
[2020-02-15] MEDS: METOPROLOL TARTRATE 25 MG TAB PO SCH ×2 (09:32→22:09)
[2020-02-15] MEDS: ASPIRIN 325 MG TAB PO SCH (09:32)
[2020-02-15] MEDS: FAMOTIDINE 20 MG TAB PO SCH ×2 (09:33→22:09)
[2020-02-15] MEDS: chlordiazePOXIDE 25 MG CAP PO SCH ×3 (09:34→22:12)
[2020-02-15] MEDS: ACETAMINOPHEN 325 MG TAB PO PRN (15:45)
--- NOTE | 2020-02-15 19:22 | Progress Note ---
Assessment and Plan Assessment and plan: Acute toxic metabolic encephalopathy ; Multifactorial, mainly due to alcohol withdrawal symptoms Continue CIWA protocol, restraint for safety if needed alcohol withdrawal Patient remained significantly agitated despite CIWA protocol. Ativan appears to lost some effectiveness. Will change to Librium 50 mg 3 times daily. Alcohol withdrawal delirium Patient in active DTs required titration of medical management. CIWA protocol. Vitamins and supportive care has been initiated. DVT prophylaxis Fracture of metatarsal of left foot, closed Would not require surgical intervention. C Ortho evaluation. Hypertensive urgency Partially alcohol withdrawal may play some role. Will titrate accordingly. HIV (human immunodeficiency virus infection) Resume antiretrovirals. 02/10/2020. Continue CIWA protocol. Supportive care. 02/11/2020. Patient CIWA score is approximately 8. Patient still requiring restraints for agitation. Continue CIWA protocol 02/12/2020. Patient remains agitated requiring restraints. Continue CIWA pro tocol. PT evaluation. 02/13/2020. Physical therapy recommends rolling walker with home health PT. 02/14/2020. Nurse reports CIWA score of 10. Continue CIWA protocol. 02/15/20; patient remains confused, with alcohol withdrawal symptoms, on CIWA protocol History Interval history: I have seen and examined the patient at the bedside this afternoon Patient's chart and medications reviewed Patient is severely agitated, on CIWA protocol Vital signs noted Hospitalist Physical - Constitutional Vitals: Temp Pulse Resp BP Pulse Ox 97.3 F L 78 20 145/80 99 02/15/20 15:57 02/15/20 15:57 02/15/20 15:57 02/15/20 15:57 02/15/20 15:57 General appearance: Present: mild distress, well-nourished, other (Agitated confused combative) - EENT Eyes: Present: PERRL, EOM intact - Neck Neck: Present: supple, normal ROM - Respiratory Respiratory effort: normal Respiratory: bilateral: diminished, rhonchi, negative: rales, wheezing - Cardiovascular Rhythm: regular Heart Sounds: Present: S1 & S2 - Extremities Extremities: no ischemia, No edema - Abdominal General gastrointestinal: soft, non-tender, non-distended, normal bowel sounds - Integumentary Integumentary: Present: clear, warm - Psychiatric Psychiatric: agitated, other (Restless) - Neurologic Neurologic: moves all extremities (Combative) Results - Labs CBC & Chem 7: 02/09/20 05:25 02/09/20 05:25 Labs: Laboratory Last Values WBC 4.4 K/mm3 (4.5-11.0) L 02/09/20 05:25 RBC 4.60 M/mm3 (3.65-5.03) 02/09/20 05:25 Hgb 11.1 gm/dl (11.8-15.2) L 02/09/20 05:25 Hct 35.5 % (35.5-45.6) 02/09/20 05:25 MCV 77 fl (84-94) L 02/09/20 05:25 MCH 24 pg (28-32) L 02/09/20 05:25 MCHC 31 % (32-34) L 02/09/20 05:25 RDW 23.8 % (13.2-15.2) H 02/09/20 05:25 Plt Count 97 K/mm3 (140-440) L 02/09/20 05:25 Lymph % (Auto) 37.4 % (13.4-35.0) H 02/09/20 05:25 [place] % (Auto) 13.5 % (0.0-7.3) H 02/09/20 05:25 Eos % (Auto) 1.7 % (0.0-4.3) 02/09/20 05:25 Baso % (Auto) 0.8 % (0.0-1.8) 02/09/20 05:25 Lymph # (Auto) 1.7 K/mm3 (1.2-5.4) 02/09/20 05:25 [place] # (Auto) 0.6 K/mm3 (0.0-0.8) 02/09/20 05:25 Eos # (Auto) 0.1 K/mm3 (0.0-0.4) 02/09/20 05:25 Baso # (Auto) 0.0 K/mm3 (0.0-0.1) 02/09/20 05:25 Add Manual Diff Complete 02/05/20 16:14 Total Counted 100 02/05/20 16:14 Seg Neutrophils % 46.6 % (40.0-70.0) 02/09/20 05:25 Seg Neuts % (Manual) 58.0 % (40.0-70.0) 02/05/20 16:14 Band Neutrophils % 0 % 02/05/20 16:14 Lymphocytes % (Manual) 33.0 % (13.4-35.0) 02/05/20 16:14 Reactive Lymphs % (Man) 0 % 02/05/20 16:14 Monocytes % (Manual) 8.0 % (0.0-7.3) H 02/05/20 16:14 Eosinophils % (Manual) 1.0 % (0.0-4.3) 02/05/20 16:14 Basophils % (Manual) 0 % (0.0-1.8) 02/05/20 16:14 Metamyelocytes % 0 % 02/05/20 16:14 Myelocytes % 0 % 02/05/20 16:14 Promyelocytes % 0 % 02/05/20 16:14 Blast Cells % 0 % 02/05/20 16:14 Nucleated RBC % Not Reportable 02/05/20 16:14 Seg Neutrophils # 2.1 K/mm3 (1.8-7.7) 02/09/20 05:25 Seg Neutrophils # Man 2.8 K/mm3 (1.8-7.7) 02/05/20 16:14 Band Neutrophils # 0.0 K/mm3 02/05/20 16:14 Lymphocytes # (Manual) 1.6 K/mm3 (1.2-5.4) 02/05/20 16:14 Abs React Lymphs (Man) 0.0 K/mm3 02/05/20 16:14 Monocytes # (Manual) 0.4 K/mm3 (0.0-0.8) 02/05/20 16:14 Eosinophils # (Manual) 0.0 K/mm3 (0.0-0.4) 02/05/20 16:14 Basophils # (Manual) 0.0 K/mm3 (0.0-0.1) 02/05/20 16:14 Metamyelocytes # 0.0 K/mm3 02/05/20 16:14 Myelocytes # 0.0 K/mm3 02/05/20 16:14 Promyelocytes # 0.0 K/mm3 02/05/20 16:14 Blast Cells # 0.0 K/mm3 02/05/20 16:14 WBC Morphology Not Reportable 02/05/20 16:14 Hypersegmented Neuts Not Reportable 02/05/20 16:14 Hyposegmented Neuts Not Reportable 02/05/20 16:14 Hypogranular Neuts Not Reportable 02/05/20 16:14 Smudge Cells Not Reportable 02/05/20 16:14 Toxic Granulation Not Reportable 02/05/20 16:14 Toxic Vacuolation Not Reportable 02/05/20 16:14 Dohle Bodies Not Reportable 02/05/20 16:14 Pelger-Huet Anomaly Not Reportable 02/05/20 16:14 Esperanza Rods Not Reportable 02/05/20 16:14 Platelet Estimate Not Reportable 02/05/20 16:14 Clumped Platelets Few 02/05/20 16:14 Plt Clumps, EDTA Not Reportable 02/05/20 16:14 Large Platelets Not Reportable 02/05/20 16:14 Giant Platelets Not Reportable 02/05/20 16:14 Platelet Satelliting Not Reportable 02/05/20 16:14 Plt Morphology Comment Not Reportable 02/05/20 16:14 RBC Morphology Not Reportable 02/05/20 16:14 Dimorphic RBCs Not Reportable 02/05/20 16:14 Polychromasia Not Reportable 02/05/20 16:14 Hypochromasia 1+ 02/05/20 16:14 Poikilocytosis Not Reportable 02/05/20 16:14 Anisocytosis 1+ 02/05/20 16:14 Microcytosis Few 02/05/20 16:14 Macrocytosis Not Reportable 02/05/20 16:14 Spherocytes Not Reportable 02/05/20 16:14 Pappenheimer Bodies Not Reportable 02/05/20 16:14 Sickle Cells Not Reportable 02/05/20 16:14 Target Cells Not Reportable 02/05/20 16:14 Tear Drop Cells Not Reportable 02/05/20 16:14 Ovalocytes Not Reportable 02/05/20 16:14 Helmet Cells Not Reportable 02/05/20 16:14 Sargent-B[place] Bodies Not Reportable 02/05/20 16:14 [place] Rings Not Reportable 02/05/20 16:14 Master Cells Not Reportable 02/05/20 16:14 Bite Cells Not Reportable 02/05/20 16:14 Crenated Cell Not Reportable 02/05/20 16:14 Elliptocytes Not Reportable 02/05/20 16:14 Acanthocytes (Spur) Not Reportable 02/05/20 16:14 Rouleaux Not Reportable 02/05/20 16:14 Hemoglobin C Crystals Not Reportable 02/05/20 16:14 Schistocytes Not Reportable 02/05/20 16:14 Malaria parasites Not Reportable 02/05/20 16:14 Bobby Bodies Not Reportable 02/05/20 16:14 Hem Pathologist Commnt No 02/05/20 16:14 Sodium 139 mmol/L (137-145) 02/09/20 05:25 Potassium 3.8 mmol/L (3.6-5.0) 02/09/20 05:25 Chloride 104.0 mmol/L (98-107) 02/09/20 05:25 Carbon Dioxide 21 mmol/L (22-30) L 02/09/20 05:25 Anion Gap 18 mmol/L 02/09/20 05:25 BUN 10 mg/dL (-20) 02/09/20 05:25 Creatinine 0.8 mg/dL (0.8-1.3) 02/09/20 05:25 Estimated GFR > 60 ml/min 02/09/20 05:25 BUN/Creatinine Ratio 13 % 02/09/20 05:25 Glucose 95 mg/dL (75-100) 02/09/20 05:25 POC Glucose 79 (70-105) 02/14/20 08:25 Hemoglobin A1c 5.4 % (4-6) 02/06/20 04:58 Calcium 9.4 mg/dL (8.4-10.2) 02/09/20 05:25 Total Bilirubin 0.60 mg/dL (0.1-1.2) 02/08/20 17:58 Direct Bilirubin 0.3 mg/dL (0-0.2) H 02/05/20 17:51 Indirect Bilirubin 0.5 mg/dL 02/05/20 17:51 AST 59 units/L (5-40) H 02/08/20 17:58 ALT 50 units/L (7-56) 02/08/20 17:58 Alkaline Phosphatase 166 units/L (35-129) H 02/08/20 17:58 Total Protein 8.6 g/dL (6.3-8.2) H 02/08/20 17:58 Albumin 3.5 g/dL (3.9-5) L 02/08/20 17:58 Albumin/Globulin Ratio 0.7 % 02/08/20 17:58 Urine Color Yellow (Yellow) 02/05/20 17:47 Urine Turbidity Clear (Clear) 02/05/20 17:47 Urine pH 5.0 (5.0-7.0) 02/05/20 17:47 Ur Specific [place] 1.020 (1.003-1.030) 02/05/20 17:47 Urine Protein 100 mg/dl mg/dL (Negative) 02/05/20 17:47 Urine Glucose (UA) Neg mg/dL (Negative) 02/05/20 17:47 Urine Ketones 20 mg/dL (Negative) 02/05/20 17:47 Urine Blood Sm (Negative) 02/05/20 17:47 Urine Nitrite Neg (Negative) 02/05/20 17:47 Urine Bilirubin Neg (Negative) 02/05/20 17:47 Urine Urobilinogen 2.0 mg/dL (<2.0) 02/05/20 17:47 Ur Leukocyte Esterase Neg (Negative) 02/05/20 17:47 Urine WBC (Auto) 2.0 /HPF (0.0-6.0) 02/05/20 17:47 Urine RBC (Auto) 1.0 /HPF (0.0-6.0) 02/05/20 17:47 U Epithel Cells (Auto) < 1.0 /HPF (0-13.0) 02/05/20 17:47 Urine Mucus Few /HPF 02/05/20 17:47 Salicylates < 0.3 mg/dL (2.8-20.0) L 02/05/20 16:14 Urine Opiates Screen Presumptive negative 02/05/20 17:47 Urine Methadone Screen Presumptive negative 02/05/20 17:47 Acetaminophen 5.0 ug/mL (10.0-30.0) L 02/05/20 16:14 Ur Barbiturates Screen Presumptive negative 02/05/20 17:47 Ur Phencyclidine Scrn Presumptive negative 02/05/20 17:47 Ur Amphetamines Screen Presumptive negative 02/05/20 17:47 U Benzodiazepines Scrn Presumptive negative 02/05/20 17:47 Urine Cocaine Screen Presumptive negative 02/05/20 17:47 U Marijuana (THC) Screen Presumptive negative 02/05/20 17:47 Drugs of Abuse Note Disclamer 02/05/20 17:47 Plasma/Serum Alcohol < 0.01 % (0-0.07) 02/05/20 16:14 [place]/IV: Voiding Method Bedside Commode IV Catheter Type [Right Peripheral IV Antecubital] IV Catheter Type [Right Wrist] Peripheral IV IV Catheter Type [Left Forearm INT / Saline Lock ] IV Catheter Type [Right INT / Saline Lock Forearm] IV Catheter Type [Right Hand] Peripheral IV Active Medications - Current Medications Current Medications: Generic Name Dose Route Start Last Admin Trade Name Freq PRN Reason Stop Dose Admin Acetaminophen 650 mg 02/05/20 22:45 02/15/20 15:45 Tylenol PO 650 mg Q4H PRN Administration Pain MILD(1-3)/Fever >100.5/GAMBINO Aspirin 325 mg 02/08/20 18:00 02/15/20 09:32 Aspirin PO 325 mg QDAY MICHAEL Administration Chlordiazepoxide HCl 25 mg 02/08/20 20:00 02/15/20 13:50 Librium PO 25 mg TID MICHAEL Administration Clopidogrel Bisulfate 75 mg 02/08/20 18:00 02/15/20 09:32 Plavix PO 75 mg QDAY MICHAEL Administration Famotidine 20 mg 02/07/20 22:00 02/15/20 09:33 Pepcid PO 20 mg BID MICHAEL Administration Dextrose/Sodium Chloride 1,000 mls @ 100 mls/hr 02/05/20 23:00 02/15/20 05:27 D5ns IV 100 mls/hr DIRECT MICHAEL Administration Labetalol HCl 10 mg 02/05/20 20:28 02/15/20 09:35 Labetalol IV 10 mg Q3HR PRN Administration Increased Blood Pressure Lorazepam 2 mg 02/05/20 15:32 02/13/20 15:45 Ativan IV 2 mg Q1HR PRN Administration CIWA-Ar 8-15 Lorazepam 4 mg 02/05/20 15:32 02/13/20 17:51 Ativan IV 4 mg Q1HR PRN Administration CIWA-Ar 16-25 Metoclopramide HCl 10 mg 02/05/20 22:45 Reglan IV Q6H PRN Nausea And Vomiting Metoprolol Tartrate 12.5 mg 02/08/20 22:00 02/15/20 09:32 Metoprolol PO 12.5 mg BID MICHAEL Administration Miscellaneous Medication 1 tab 02/08/20 17:30 Emtricitabin/Tenofovir [Truvada 200-300 Mg] PO QDAY MICHAEL Miscellaneous Medication 1 each 02/08/20 22:00 Lopinavir/Ritonavir (Nf) PO BID MICHAEL Morphine Sulfate 4 mg 02/05/20 22:45 02/13/20 14:35 Morphine IV 4 mg Q4H PRN Administration Pain , Severe (7-10) Ondansetron HCl 4 mg 02/05/20 22:45 02/10/20 01:28 Zofran IV 4 mg Q8H PRN Administration Nausea And Vomiting Oxycodone/Acetaminophen 1 tab 02/05/20 22:45 02/13/20 11:41 Percocet 5/325 PO 1 tab Q6H PRN Administration Pain, Moderate (4-6) Sodium Chloride 10 ml 02/06/20 10:00 02/15/20 09:35 Sodium Chloride Flush Syringe 10 Ml IV 10 ml BID MICHAEL Administration Sodium Chloride 10 ml 02/05/20 22:45 02/06/20 06:40 Sodium Chloride Flush Syringe 10 Ml IV 10 ml PRN PRN Administration LINE FLUSH Nutrition/Malnutrition Assess - Dietary Evaluation Nutrition/Malnutrition Findings: Nutrition Notes Start: 02/12/20 11:26 Freq: Status: Active Protocol: Document 02/12/20 11:26 MARCY (Rec: 02/12/20 11:48 [email or web address] [id number]) Co-Sign 02/12/20 11:26 LP Nutrition Notes Need for Assessment generated from: LOS Initial or Follow up Assessment Current Diagnosis Coronary Artery Disease, Hypertension,Stroke Other Pertinent Diagnosis HIV, ETOH withdrawal, pancreatitis, acidosis, pneu, L foot fracture Labs/Tests Reviewed Pertinent Medications D5NS 100ml/hr Height 6 ft 1 in Weight 91.5 kg Chloride Body Weight (kg) 83.63 BMI 26.6 Weight Status Overweight Subjective/Other Information LOS screen. Pt seemed slightly confused at time of visit and wanted to go home. Noted pt in restraints. Reported stable wt for >1 year. During admission, appetite varies. Noted recent intakes dropped from 100% to 50%. 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 He receives Meals on Wheels. 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 He is not interested in diet education at this time. 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 #1 Nutrition Diagnosis Food and nutrition-related knowledge deficit,Other: ( Specify in comment below) Etiology disinterested in learning information As Evidenced by Signs and Symptoms pt verbalized disinterest in learning information Is patient on ventilator? No Is Patient Ambulatory and/or Out of Bed No REE-([facility]-confined to bed) [phone] Calculation Used for Recommendations [facility] Additional Notes Protein 0.8-1.0g/k-92g/kg Fluid: 1ml/kcal Nutrition Intervention Change Diet Order: Continue Cardiac diet Goal #1 Pt will meet at least 75% of energy and protein needs. Anticipated Discharge Needs: Cardiac diet (low sodium) Follow-Up By: 02/16/20 Additional Comments F/u intakes
[2020-02-15] MEDS: LORazepam 2 MG/ML VIAL IV PRN (22:21)
[2020-02-16] MEDS: LORazepam 2 MG/ML VIAL IV PRN ×5 (00:40→14:55)
[2020-02-16] MEDS: NICOTINE 21 MG/24 HR PATCH TD SCH ×2 (02:34→09:02)
[2020-02-16] MEDS: D5W/0.9% NACL 1,000 ML IV SCH ×2 (03:33→14:57)
[2020-02-16] MEDS: CLOPIDOGREL 75 MG TAB PO SCH (09:02)
[2020-02-16] MEDS: METOPROLOL TARTRATE 25 MG TAB PO SCH ×2 (09:02→21:31)
[2020-02-16] MEDS: FAMOTIDINE 20 MG TAB PO SCH ×2 (09:02→21:31)
[2020-02-16] MEDS: ASPIRIN 325 MG TAB PO SCH (09:02)
[2020-02-16] MEDS: chlordiazePOXIDE 25 MG CAP PO SCH ×3 (09:03→20:08)
--- NOTE | 2020-02-16 19:37 | Progress Note ---
Assessment and Plan Assessment and plan: --Acute toxic metabolic encephalopathy; Multifactorial, mainly alcohol-related, alcohol withdrawal symptoms Alcoholic encephalopathy, Supportive care CIWA protocol --Chronic alcohol use; Thiamine folic acid, IV fluids supportive care --Delirium/probably alcohol withdrawal symptoms Continue CI WA protocol, supportive care Psych evaluation --Fracture metatarsal left foot closed; No surgical intervention needed, supportive care --Hypertension urgency; present on admission Now moderate control, continue current antihypertensives and as needed medications --History of HIV AIDS; On antiretrovirals, continue current management --DVT prophylaxis; Lovenox --Restraint for safety --DC planning per case management We will closely monitor the patient and adjust the management as needed Plan of care reviewed with the patient's nurse, case management 02/10/2020. Continue CIWA protocol. Supportive care. 02/11/2020. Patient CIWA score is approximately 8. Patient still requiring restraints for agitation. Continue CIWA protocol 02/12/2020. Patient remains agitated requiring restraints. Continue CIWA protocol. PT evaluation. 02/13/2020. Physical therapy recommends rolling walker with home health PT. 02/14/2020. Nurse reports CIWA score of 10. Continue CIWA protocol. 02/15/20; patient remains confused, with alcohol withdrawal symptoms, on CIWA protocol History Interval history: I have seen and examined the patient at the bedside this afternoon Patient's chart and medications reviewed Patient remains confused, agitated requiring restraints Patient is on CIWA protocol requiring Librium and Ativan Vital signs noted Hospitalist Physical - Constitutional Vitals: Temp Pulse Resp BP Pulse Ox 98.4 F 71 20 168/81 99 02/16/20 11:53 02/16/20 11:53 02/16/20 11:53 02/16/20 11:53 02/16/20 11:53 General appearance: Present: mild distress, well-nourished, other (Agitated confused combative, restrained) - EENT Eyes: Present: PERRL, EOM intact - Neck Neck: Present: supple, normal ROM - Respiratory Respiratory effort: normal Respiratory: bilateral: diminished, negative: rales, rhonchi, wheezing - Cardiovascular Rhythm: regular Heart Sounds: Present: S1 & S2 - Extremities Extremities: no ischemia, No edema - Abdominal General gastrointestinal: soft, non-tender, non-distended, normal bowel sounds - Integumentary Integumentary: Present: clear, warm - Psychiatric Psychiatric: appropriate mood/affect, cooperative - Neurologic Neurologic: moves all extremities Results - Labs CBC & Chem 7: 02/09/20 05:25 02/09/20 05:25 Labs: Laboratory Last Values WBC 4.4 K/mm3 (4.5-11.0) L 02/09/20 05:25 RBC 4.60 M/mm3 (3.65-5.03) 02/09/20 05:25 Hgb 11.1 gm/dl (11.8-15.2) L 02/09/20 05:25 Hct 35.5 % (35.5-45.6) 02/09/20 05:25 MCV 77 fl (84-94) L 02/09/20 05:25 MCH 24 pg (28-32) L 02/09/20 05:25 MCHC 31 % (32-34) L 02/09/20 05:25 RDW 23.8 % (13.2-15.2) H 02/09/20 05:25 Plt Count 97 K/mm3 (140-440) L 02/09/20 05:25 Lymph % (Auto) 37.4 % (13.4-35.0) H 02/09/20 05:25 [place] % (Auto) 13.5 % (0.0-7.3) H 02/09/20 05:25 Eos % (Auto) 1.7 % (0.0-4.3) 02/09/20 05:25 Baso % (Auto) 0.8 % (0.0-1.8) 02/09/20 05:25 Lymph # (Auto) 1.7 K/mm3 (1.2-5.4) 02/09/20 05:25 [place] # (Auto) 0.6 K/mm3 (0.0-0.8) 02/09/20 05:25 Eos # (Auto) 0.1 K/mm3 (0.0-0.4) 02/09/20 05:25 Baso # (Auto) 0.0 K/mm3 (0.0-0.1) 02/09/20 05:25 Add Manual Diff Complete 02/05/20 16:14 Total Counted 100 02/05/20 16:14 Seg Neutrophils % 46.6 % (40.0-70.0) 02/09/20 05:25 Seg Neuts % (Manual) 58.0 % (40.0-70.0) 02/05/20 16:14 Band Neutrophils % 0 % 02/05/20 16:14 Lymphocytes % (Manual) 33.0 % (13.4-35.0) 02/05/20 16:14 Reactive Lymphs % (Man) 0 % 02/05/20 16:14 Monocytes % (Manual) 8.0 % (0.0-7.3) H 02/05/20 16:14 Eosinophils % (Manual) 1.0 % (0.0-4.3) 02/05/20 16:14 Basophils % (Manual) 0 % (0.0-1.8) 02/05/20 16:14 Metamyelocytes % 0 % 02/05/20 16:14 Myelocytes % 0 % 02/05/20 16:14 Promyelocytes % 0 % 02/05/20 16:14 Blast Cells % 0 % 02/05/20 16:14 Nucleated RBC % Not Reportable 02/05/20 16:14 Seg Neutrophils # 2.1 K/mm3 (1.8-7.7) 02/09/20 05:25 Seg Neutrophils # Man 2.8 K/mm3 (1.8-7.7) 02/05/20 16:14 Band Neutrophils # 0.0 K/mm3 02/05/20 16:14 Lymphocytes # (Manual) 1.6 K/mm3 (1.2-5.4) 02/05/20 16:14 Abs React Lymphs (Man) 0.0 K/mm3 02/05/20 16:14 Monocytes # (Manual) 0.4 K/mm3 (0.0-0.8) 02/05/20 16:14 Eosinophils # (Manual) 0.0 K/mm3 (0.0-0.4) 02/05/20 16:14 Basophils # (Manual) 0.0 K/mm3 (0.0-0.1) 02/05/20 16:14 Metamyelocytes # 0.0 K/mm3 02/05/20 16:14 Myelocytes # 0.0 K/mm3 02/05/20 16:14 Promyelocytes # 0.0 K/mm3 02/05/20 16:14 Blast Cells # 0.0 K/mm3 02/05/20 16:14 WBC Morphology Not Reportable 02/05/20 16:14 Hypersegmented Neuts Not Reportable 02/05/20 16:14 Hyposegmented Neuts Not Reportable 02/05/20 16:14 Hypogranular Neuts Not Reportable 02/05/20 16:14 Smudge Cells Not Reportable 02/05/20 16:14 Toxic Granulation Not Reportable 02/05/20 16:14 Toxic Vacuolation Not Reportable 02/05/20 16:14 Dohle Bodies Not Reportable 02/05/20 16:14 Pelger-Huet Anomaly Not Reportable 02/05/20 16:14 Esperanza Rods Not Reportable 02/05/20 16:14 Platelet Estimate Not Reportable 02/05/20 16:14 Clumped Platelets Few 02/05/20 16:14 Plt Clumps, EDTA Not Reportable 02/05/20 16:14 Large Platelets Not Reportable 02/05/20 16:14 Giant Platelets Not Reportable 02/05/20 16:14 Platelet Satelliting Not Reportable 02/05/20 16:14 Plt Morphology Comment Not Reportable 02/05/20 16:14 RBC Morphology Not Reportable 02/05/20 16:14 Dimorphic RBCs Not Reportable 02/05/20 16:14 Polychromasia Not Reportable 02/05/20 16:14 Hypochromasia 1+ 02/05/20 16:14 Poikilocytosis Not Reportable 02/05/20 16:14 Anisocytosis 1+ 02/05/20 16:14 Microcytosis Few 02/05/20 16:14 Macrocytosis Not Reportable 02/05/20 16:14 Spherocytes Not Reportable 02/05/20 16:14 Pappenheimer Bodies Not Reportable 02/05/20 16:14 Sickle Cells Not Reportable 02/05/20 16:14 Target Cells Not Reportable 02/05/20 16:14 Tear Drop Cells Not Reportable 02/05/20 16:14 Ovalocytes Not Reportable 02/05/20 16:14 Helmet Cells Not Reportable 02/05/20 16:14 [place] Bodies Not Reportable 02/05/20 16:14 [place] Rings Not Reportable 02/05/20 16:14 Master Cells Not Reportable 02/05/20 16:14 Bite Cells Not Reportable 02/05/20 16:14 Crenated Cell Not Reportable 02/05/20 16:14 Elliptocytes Not Reportable 02/05/20 16:14 Acanthocytes (Spur) Not Reportable 02/05/20 16:14 Rouleaux Not Reportable 02/05/20 16:14 Hemoglobin C Crystals Not Reportable 02/05/20 16:14 Schistocytes Not Reportable 02/05/20 16:14 Malaria parasites Not Reportable 02/05/20 16:14 Bobby Bodies Not Reportable 02/05/20 16:14 Hem Pathologist Commnt No 02/05/20 16:14 Sodium 139 mmol/L (137-145) 02/09/20 05:25 Potassium 3.8 mmol/L (3.6-5.0) 02/09/20 05:25 Chloride 104.0 mmol/L (98-107) 02/09/20 05:25 Carbon Dioxide 21 mmol/L (22-30) L 02/09/20 05:25 Anion Gap 18 mmol/L 02/09/20 05:25 BUN 10 mg/dL (9-20) 02/09/20 05:25 Creatinine 0.8 mg/dL (0.8-1.3) 02/09/20 05:25 Estimated GFR > 60 ml/min 02/09/20 05:25 BUN/Creatinine Ratio 13 % 02/09/20 05:25 Glucose 95 mg/dL (75-100) 02/09/20 05:25 POC Glucose 79 (70-105) 02/14/20 08:25 Hemoglobin A1c 5.4 % (4-6) 02/06/20 04:58 Calcium 9.4 mg/dL (8.4-10.2) 02/09/20 05:25 Total Bilirubin 0.60 mg/dL (0.1-1.2) 02/08/20 17:58 Direct Bilirubin 0.3 mg/dL (0-0.2) H 02/05/20 17:51 Indirect Bilirubin 0.5 mg/dL 02/05/20 17:51 AST 59 units/L (5-40) H 02/08/20 17:58 ALT 50 units/L (7-56) 02/08/20 17:58 Alkaline Phosphatase 166 units/L (35-129) H 02/08/20 17:58 Total Protein 8.6 g/dL (6.3-8.2) H 02/08/20 17:58 Albumin 3.5 g/dL (3.9-5) L 02/08/20 17:58 Albumin/Globulin Ratio 0.7 % 02/08/20 17:58 Urine Color Yellow (Yellow) 02/05/20 17:47 Urine Turbidity Clear (Clear) 02/05/20 17:47 Urine pH 5.0 (5.0-7.0) 02/05/20 17:47 Ur Specific [place] 1.020 (1.003-1.030) 02/05/20 17:47 Urine Protein 100 mg/dl mg/dL (Negative) 02/05/20 17:47 Urine Glucose (UA) Neg mg/dL (Negative) 02/05/20 17:47 Urine Ketones 20 mg/dL (Negative) 02/05/20 17:47 Urine Blood Sm (Negative) 02/05/20 17:47 Urine Nitrite Neg (Negative) 02/05/20 17:47 Urine Bilirubin Neg (Negative) 02/05/20 17:47 Urine Urobilinogen 2.0 mg/dL (<2.0) 02/05/20 17:47 Ur Leukocyte Esterase Neg (Negative) 02/05/20 17:47 Urine WBC (Auto) 2.0 /HPF (0.0-6.0) 02/05/20 17:47 Urine RBC (Auto) 1.0 /HPF (0.0-6.0) 02/05/20 17:47 U Epithel Cells (Auto) < 1.0 /HPF (0-13.0) 02/05/20 17:47 Urine Mucus Few /HPF 02/05/20 17:47 Salicylates < 0.3 mg/dL (2.8-20.0) L 02/05/20 16:14 Urine Opiates Screen Presumptive negative 02/05/20 17:47 Urine Methadone Screen Presumptive negative 02/05/20 17:47 Acetaminophen 5.0 ug/mL (10.0-30.0) L 02/05/20 16:14 Ur Barbiturates Screen Presumptive negative 02/05/20 17:47 Ur Phencyclidine Scrn Presumptive negative 02/05/20 17:47 Ur Amphetamines Screen Presumptive negative 02/05/20 17:47 U Benzodiazepines Scrn Presumptive negative 02/05/20 17:47 Urine Cocaine Screen Presumptive negative 02/05/20 17:47 U Marijuana (THC) Screen Presumptive negative 02/05/20 17:47 Drugs of Abuse Note Disclamer 02/05/20 17:47 Plasma/Serum Alcohol < 0.01 % (0-0.07) 02/05/20 16:14 [place]/IV: Voiding Method Urinal IV Catheter Type [Right Peripheral IV Antecubital] IV Catheter Type [Right Wrist] Peripheral IV IV Catheter Type [Left Forearm INT / Saline Lock ] IV Catheter Type [Right INT / Saline Lock Forearm] IV Catheter Type [Right Hand] Peripheral IV Active Medications - Current Medications Current Medications: Generic Name Dose Route Start Last Admin Trade Name Freq PRN Reason Stop Dose Admin Acetaminophen 650 mg 02/05/20 22:45 02/15/20 15:45 Tylenol PO 650 mg Q4H PRN Administration Pain MILD(1-3)/Fever >100.5/GAMBINO Aspirin 325 mg 02/08/20 18:00 02/16/20 09:02 Aspirin PO 325 mg QDAY MICHAEL Administration Chlordiazepoxide HCl 25 mg 02/08/20 20:00 02/16/20 13:44 Librium PO 25 mg TID MICHAEL Administration Clopidogrel Bisulfate 75 mg 02/08/20 18:00 02/16/20 09:02 Plavix PO 75 mg QDAY MICHAEL Administration Famotidine 20 mg 02/07/20 22:00 02/16/20 09:02 Pepcid PO 20 mg BID MICHAEL Administration Dextrose/Sodium Chloride 1,000 mls @ 100 mls/hr 02/05/20 23:00 02/16/20 14:57 D5ns IV 100 mls/hr DIRECT MICAHEL Administration Labetalol HCl 10 mg 02/05/20 20:28 02/16/20 06:09 Labetalol IV 10 mg Q3HR PRN Administration Increased Blood Pressure Lorazepam 2 mg 02/05/20 15:32 02/16/20 14:55 Ativan IV 2 mg Q1HR PRN Administration CIWA-Ar 8-15 Lorazepam 4 mg 02/05/20 15:32 02/13/20 17:51 Ativan IV 4 mg Q1HR PRN Administration CIWA-Ar 16-25 Metoclopramide HCl 10 mg 02/05/20 22:45 Reglan IV Q6H PRN Nausea And Vomiting Metoprolol Tartrate 12.5 mg 02/08/20 22:00 02/16/20 09:02 Metoprolol PO 12.5 mg BID MICHAEL Administration Miscellaneous Medication 1 tab 02/08/20 17:30 Emtricitabin/Tenofovir [Truvada 200-300 Mg] PO QDAY MICHAEL Miscellaneous Medication 1 each 02/08/20 22:00 Lopinavir/Ritonavir (Nf) PO BID MICHAEL Morphine Sulfate 4 mg 02/05/20 22:45 02/13/20 14:35 Morphine IV 4 mg Q4H PRN Administration Pain , Severe (7-10) Nicotine 21 mg 02/16/20 02:23 02/16/20 09:02 Habitrol TD 21 mg QDAY MICHAEL Administration Ondansetron HCl 4 mg 02/05/20 22:45 02/10/20 01:28 Zofran IV 4 mg Q8H PRN Administration Nausea And Vomiting Oxycodone/Acetaminophen 1 tab 02/05/20 22:45 02/13/20 11:41 Percocet 5/325 PO 1 tab Q6H PRN Administration Pain, Moderate (4-6) Sodium Chloride 10 ml 02/06/20 10:00 02/16/20 09:03 Sodium Chloride Flush Syringe 10 Ml IV 10 ml BID MICHAEL Administration Sodium Chloride 10 ml 02/05/20 22:45 02/16/20 02:45 Sodium Chloride Flush Syringe 10 Ml IV 10 ml PRN PRN Administration LINE FLUSH Nutrition/Malnutrition Assess - Dietary Evaluation Nutrition/Malnutrition Findings: Nutrition Notes Start: 02/12/20 11:26 Freq: Status: Active Protocol: Document 02/16/20 13:43 ISMAEL (Rec: 02/16/20 13:48 ISMAEL [id number]) Co-Sign 02/16/20 13:43 Nutrition Notes Initial or Follow up Reassessment Current Diagnosis Coronary Artery Disease, Hypertension,Stroke Other Pertinent Diagnosis HIV, ETOH withdrawal, pancreatitis, acidosis, pneu, L foot fracture Current Diet Cardiac Labs/Tests Reviewed Pertinent Medications D5NS 100ml/hr Height 6 ft 1 in Weight 91.5 kg [place] Body Weight (kg) 83.63 BMI 26.6 Weight Status Overweight Subjective/Other Information F/U for intakes. Pt sleeping at time of visit. Per RN, pt ate 25% breakfast and stated he did not want to eat. Percent of energy/protein needs met: 24%/28% Burn Absent Trauma Absent GI Symptoms None Usual Diet at Home Meals on Wheels Current % PO Poor (25-49%) Minimum of two criteria No physical signs of malnutrition #2 Nutrition Diagnosis Inadequate oral intake Diagnosis Progress(for reassessment Continues documentation) #1 Nutrition Diagnosis Food and nutrition-related knowledge deficit,Other: ( Specify in comment below) Diagnosis Progress(for reassessment Continues documentation) Is patient on ventilator? No Is Patient Ambulatory and/or Out of Bed No REE-([facility]-confined to bed) 9422.070 Calculation Used for Recommendations [facility] Additional Notes Protein 0.8-1.0g/k-92g/kg Fluid: 1ml/kcal Nutrition Intervention Change Diet Order: Continue Add Supplement/Snack (indicate name/kcal Ensure Enlive BID /protein ) Provides kCal: 700 Provides Protein (gm) 40 Goal #1 Pt will meet at least 75% of energy and protein needs. Anticipated Discharge Needs: Cardiac diet (low sodium) Follow-Up By: 02/18/20 Additional Comments F/U PO/ONS intakes
[2020-02-16] MEDS: NIFEdipine XL 30 MG TAB PO SCH (21:31)
[2020-02-17] MEDS: chlordiazePOXIDE 25 MG CAP PO SCH ×3 (09:05→20:50)
[2020-02-17] MEDS: ASPIRIN 325 MG TAB PO SCH (10:38)
[2020-02-17] MEDS: FOLIC ACID 1 MG TAB PO SCH (10:38)
[2020-02-17] MEDS: THIAMINE 100 MG TAB PO SCH (10:38)
[2020-02-17] MEDS: METOPROLOL TARTRATE 25 MG TAB PO SCH ×2 (10:39→22:03)
[2020-02-17] MEDS: FAMOTIDINE 20 MG TAB PO SCH ×2 (10:39→22:01)
[2020-02-17] MEDS: NICOTINE 21 MG/24 HR PATCH TD SCH (10:39)
[2020-02-17] MEDS: NIFEdipine XL 30 MG TAB PO SCH ×2 (10:39→22:02)
[2020-02-17] MEDS: CLOPIDOGREL 75 MG TAB PO SCH (10:39)
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
[2020-02-17] MEDS: OMEGA-3 FATTY ACIDS/FISH OIL 1 GRAM CAP PO SCH ×2 (13:40→22:02)
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
[2020-02-17] MEDS: ZOLPIDEM 5 MG TAB PO SCH (22:01)
[2020-02-17] MEDS: MELATONIN 5 MG TAB PO SCH (22:03)
[2020-02-18] MEDS: FOLIC ACID 1 MG TAB PO SCH (09:05)
[2020-02-18] MEDS: OMEGA-3 FATTY ACIDS/FISH OIL 1 GRAM CAP PO SCH ×2 (09:05→21:13)
[2020-02-18] MEDS: FAMOTIDINE 20 MG TAB PO SCH ×2 (09:05→21:13)
[2020-02-18] MEDS: chlordiazePOXIDE 25 MG CAP PO SCH ×3 (09:05→20:48)
[2020-02-18] MEDS: ASPIRIN 325 MG TAB PO SCH (09:05)
[2020-02-18] MEDS: ACETAMINOPHEN 325 MG TAB PO PRN (09:06)
[2020-02-18] MEDS: CLOPIDOGREL 75 MG TAB PO SCH (09:06)
[2020-02-18] MEDS: THIAMINE 100 MG TAB PO SCH (09:06)
[2020-02-18] MEDS: METOPROLOL TARTRATE 25 MG TAB PO SCH ×2 (09:08→21:13)
[2020-02-18] MEDS: NIFEdipine XL 30 MG TAB PO SCH ×2 (09:08→21:13)
[2020-02-18] MEDS: NICOTINE 21 MG/24 HR PATCH TD SCH (09:08)
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
--- NOTE | 2020-02-18 18:14 | Progress Note ---
Assessment and Plan Assessment and plan: --Acute toxic metabolic encephalopathy; Multifactorial, mainly alcohol-related, alcohol withdrawal symptoms Alcoholic encephalopathy, delirium, Off CIWA protocols Psych evaluation and recommendations appreciated Mild improvement of symptoms, continues to be agitated requiring either a sitter or restraints --Chronic alcohol use; Thiamine folic acid, DC IV fluids --Fracture metatarsal left foot closed; No surgical intervention needed, supportive care --Hypertension urgency; present on admission Now moderate control, continue current antihypertensives and as needed medications --History of HIV AIDS; On antiretrovirals, continue current management --DVT prophylaxis; Lovenox --Restraint for safety --DC planning per case management We will closely monitor the patient and adjust the management as needed Plan of care reviewed with the patient's nurse, case management 02/10/2020. Continue CIWA protocol. Supportive care. 02/11/2020. Patient CIWA score is approximately 8. Patient still requiring restraints for agitation. Continue CIWA protocol 02/12/2020. Patient remains agitated requiring restraints. Continue CIWA protocol. PT evaluation. 02/13/2020. Physical therapy recommends rolling walker with home health PT. 02/14/2020. Nurse reports CIWA score of 10. Continue CIWA protocol. 02/15/20; patient remains confused, with alcohol withdrawal symptoms, on CIWA protocol 02/17/20; psych evaluation and recommendations noted and appreciated We will DC CIWA protocol, continue psych medications, Ativan as needed for agitation 02/18/2020; continue current management, discharge planning per case management History Interval history: Patient remains agitated and restless Alert and awake responding appropriately Vital signs noted Hospitalist Physical - Constitutional Vitals: Temp Pulse Resp BP Pulse Ox 98.0 F 103 H 18 168/83 92 02/18/20 16:31 02/18/20 16:31 02/18/20 16:31 02/18/20 16:31 02/18/20 16:31 General appearance: Present: mild distress, well-nourished, other (Agitated confused combative, restrained) - EENT Eyes: Present: PERRL, EOM intact - Neck Neck: Present: supple, normal ROM - Respiratory Respiratory effort: normal Respiratory: bilateral: diminished, negative: rales, rhonchi, wheezing - Cardiovascular Rhythm: regular Heart Sounds: Present: S1 & S2 - Extremities Extremities: no ischemia, No edema Extremity abnormal: edema - Abdominal General gastrointestinal: soft, non-tender, non-distended, normal bowel sounds - Integumentary Integumentary: Present: clear, warm - Psychiatric Psychiatric: agitated (Mild agitation), other (More alert and awake) - Neurologic Neurologic: moves all extremities Results - Labs CBC & Chem 7: 02/09/20 05:25 02/09/20 05:25 Labs: Laboratory Last Values WBC 4.4 K/mm3 (4.5-11.0) L 02/09/20 05:25 RBC 4.60 M/mm3 (3.65-5.03) 02/09/20 05:25 Hgb 11.1 gm/dl (11.8-15.2) L 02/09/20 05:25 Hct 35.5 % (35.5-45.6) 02/09/20 05:25 MCV 77 fl (84-94) L 02/09/20 05:25 MCH 24 pg (28-32) L 02/09/20 05:25 MCHC 31 % (32-34) L 02/09/20 05:25 RDW 23.8 % (13.2-15.2) H 02/09/20 05:25 Plt Count 97 K/mm3 (140-440) L 02/09/20 05:25 Lymph % (Auto) 37.4 % (13.4-35.0) H 02/09/20 05:25 [place] % (Auto) 13.5 % (0.0-7.3) H 02/09/20 05:25 Eos % (Auto) 1.7 % (0.0-4.3) 02/09/20 05:25 Baso % (Auto) 0.8 % (0.0-1.8) 02/09/20 05:25 Lymph # (Auto) 1.7 K/mm3 (1.2-5.4) 02/09/20 05:25 [place] # (Auto) 0.6 K/mm3 (0.0-0.8) 02/09/20 05:25 Eos # (Auto) 0.1 K/mm3 (0.0-0.4) 02/09/20 05:25 Baso # (Auto) 0.0 K/mm3 (0.0-0.1) 02/09/20 05:25 Add Manual Diff Complete 02/05/20 16:14 Total Counted 100 02/05/20 16:14 Seg Neutrophils % 46.6 % (40.0-70.0) 02/09/20 05:25 Seg Neuts % (Manual) 58.0 % (40.0-70.0) 02/05/20 16:14 Band Neutrophils % 0 % 02/05/20 16:14 Lymphocytes % (Manual) 33.0 % (13.4-35.0) 02/05/20 16:14 Reactive Lymphs % (Man) 0 % 02/05/20 16:14 Monocytes % (Manual) 8.0 % (0.0-7.3) H 02/05/20 16:14 Eosinophils % (Manual) 1.0 % (0.0-4.3) 02/05/20 16:14 Basophils % (Manual) 0 % (0.0-1.8) 02/05/20 16:14 Metamyelocytes % 0 % 02/05/20 16:14 Myelocytes % 0 % 02/05/20 16:14 Promyelocytes % 0 % 02/05/20 16:14 Blast Cells % 0 % 02/05/20 16:14 Nucleated RBC % Not Reportable 02/05/20 16:14 Seg Neutrophils # 2.1 K/mm3 (1.8-7.7) 02/09/20 05:25 Seg Neutrophils # Man 2.8 K/mm3 (1.8-7.7) 02/05/20 16:14 Band Neutrophils # 0.0 K/mm3 02/05/20 16:14 Lymphocytes # (Manual) 1.6 K/mm3 (1.2-5.4) 02/05/20 16:14 Abs React Lymphs (Man) 0.0 K/mm3 02/05/20 16:14 Monocytes # (Manual) 0.4 K/mm3 (0.0-0.8) 02/05/20 16:14 Eosinophils # (Manual) 0.0 K/mm3 (0.0-0.4) 02/05/20 16:14 Basophils # (Manual) 0.0 K/mm3 (0.0-0.1) 02/05/20 16:14 Metamyelocytes # 0.0 K/mm3 02/05/20 16:14 Myelocytes # 0.0 K/mm3 02/05/20 16:14 Promyelocytes # 0.0 K/mm3 02/05/20 16:14 Blast Cells # 0.0 K/mm3 02/05/20 16:14 WBC Morphology Not Reportable 02/05/20 16:14 Hypersegmented Neuts Not Reportable 02/05/20 16:14 Hyposegmented Neuts Not Reportable 02/05/20 16:14 Hypogranular Neuts Not Reportable 02/05/20 16:14 Smudge Cells Not Reportable 02/05/20 16:14 Toxic Granulation Not Reportable 02/05/20 16:14 Toxic Vacuolation Not Reportable 02/05/20 16:14 Dohle Bodies Not Reportable 02/05/20 16:14 Pelger-Huet Anomaly Not Reportable 02/05/20 16:14 Esperanza Rods Not Reportable 02/05/20 16:14 Platelet Estimate Not Reportable 02/05/20 16:14 Clumped Platelets Few 02/05/20 16:14 Plt Clumps, EDTA Not Reportable 02/05/20 16:14 Large Platelets Not Reportable 02/05/20 16:14 Giant Platelets Not Reportable 02/05/20 16:14 Platelet Satelliting Not Reportable 02/05/20 16:14 Plt Morphology Comment Not Reportable 02/05/20 16:14 RBC Morphology Not Reportable 02/05/20 16:14 Dimorphic RBCs Not Reportable 02/05/20 16:14 Polychromasia Not Reportable 02/05/20 16:14 Hypochromasia 1+ 02/05/20 16:14 Poikilocytosis Not Reportable 02/05/20 16:14 Anisocytosis 1+ 02/05/20 16:14 Microcytosis Few 02/05/20 16:14 Macrocytosis Not Reportable 02/05/20 16:14 Spherocytes Not Reportable 02/05/20 16:14 Pappenheimer Bodies Not Reportable 02/05/20 16:14 Sickle Cells Not Reportable 02/05/20 16:14 Target Cells Not Reportable 02/05/20 16:14 Tear Drop Cells Not Reportable 02/05/20 16:14 Ovalocytes Not Reportable 02/05/20 16:14 Helmet Cells Not Reportable 02/05/20 16:14 [place] Bodies Not Reportable 02/05/20 16:14 [place] Rings Not Reportable 02/05/20 16:14 Master Cells Not Reportable 02/05/20 16:14 Bite Cells Not Reportable 02/05/20 16:14 Crenated Cell Not Reportable 02/05/20 16:14 Elliptocytes Not Reportable 02/05/20 16:14 Acanthocytes (Spur) Not Reportable 02/05/20 16:14 Rouleaux Not Reportable 02/05/20 16:14 Hemoglobin C Crystals Not Reportable 02/05/20 16:14 Schistocytes Not Reportable 02/05/20 16:14 Malaria parasites Not Reportable 02/05/20 16:14 Bobby Bodies Not Reportable 02/05/20 16:14 Hem Pathologist Commnt No 02/05/20 16:14 Sodium 139 mmol/L (137-145) 02/09/20 05:25 Potassium 3.8 mmol/L (3.6-5.0) 02/09/20 05:25 Chloride 104.0 mmol/L (98-107) 02/09/20 05:25 Carbon Dioxide 21 mmol/L (22-30) L 02/09/20 05:25 Anion Gap 18 mmol/L 02/09/20 05:25 BUN 10 mg/dL (9-20) 02/09/20 05:25 Creatinine 0.8 mg/dL (0.8-1.3) 02/09/20 05:25 Estimated GFR > 60 ml/min 02/09/20 05:25 BUN/Creatinine Ratio 13 % 02/09/20 05:25 Glucose 95 mg/dL (75-100) 02/09/20 05:25 POC Glucose 79 (70-105) 02/14/20 08:25 Hemoglobin A1c 5.4 % (4-6) 02/06/20 04:58 Calcium 9.4 mg/dL (8.4-10.2) 02/09/20 05:25 Total Bilirubin 0.60 mg/dL (0.1-1.2) 02/08/20 17:58 Direct Bilirubin 0.3 mg/dL (0-0.2) H 02/05/20 17:51 Indirect Bilirubin 0.5 mg/dL 02/05/20 17:51 AST 59 units/L (5-40) H 02/08/20 17:58 ALT 50 units/L (7-56) 02/08/20 17:58 Alkaline Phosphatase 166 units/L (35-129) H 02/08/20 17:58 Total Protein 8.6 g/dL (6.3-8.2) H 02/08/20 17:58 Albumin 3.5 g/dL (3.9-5) L 02/08/20 17:58 Albumin/Globulin Ratio 0.7 % 02/08/20 17:58 Urine Color Yellow (Yellow) 02/05/20 17:47 Urine Turbidity Clear (Clear) 02/05/20 17:47 Urine pH 5.0 (5.0-7.0) 02/05/20 17:47 Ur Specific [place] 1.020 (1.003-1.030) 02/05/20 17:47 Urine Protein 100 mg/dl mg/dL (Negative) 02/05/20 17:47 Urine Glucose (UA) Neg mg/dL (Negative) 02/05/20 17:47 Urine Ketones 20 mg/dL (Negative) 02/05/20 17:47 Urine Blood Sm (Negative) 02/05/20 17:47 Urine Nitrite Neg (Negative) 02/05/20 17:47 Urine Bilirubin Neg (Negative) 02/05/20 17:47 Urine Urobilinogen 2.0 mg/dL (<2.0) 02/05/20 17:47 Ur Leukocyte Esterase Neg (Negative) 02/05/20 17:47 Urine WBC (Auto) 2.0 /HPF (0.0-6.0) 02/05/20 17:47 Urine RBC (Auto) 1.0 /HPF (0.0-6.0) 02/05/20 17:47 U Epithel Cells (Auto) < 1.0 /HPF (0-13.0) 02/05/20 17:47 Urine Mucus Few /HPF 02/05/20 17:47 Salicylates < 0.3 mg/dL (2.8-20.0) L 02/05/20 16:14 Urine Opiates Screen Presumptive negative 02/05/20 17:47 Urine Methadone Screen Presumptive negative 02/05/20 17:47 Acetaminophen 5.0 ug/mL (10.0-30.0) L 02/05/20 16:14 Ur Barbiturates Screen Presumptive negative 02/05/20 17:47 Ur Phencyclidine Scrn Presumptive negative 02/05/20 17:47 Ur Amphetamines Screen Presumptive negative 02/05/20 17:47 U Benzodiazepines Scrn Presumptive negative 02/05/20 17:47 Urine Cocaine Screen Presumptive negative 02/05/20 17:47 U Marijuana (THC) Screen Presumptive negative 02/05/20 17:47 Drugs of Abuse Note Disclamer 02/05/20 17:47 Plasma/Serum Alcohol < 0.01 % (0-0.07) 02/05/20 16:14 [place]/IV: Voiding Method Condom Catheter IV Catheter Type [Right Peripheral IV Antecubital] IV Catheter Type [Right Wrist] Peripheral IV IV Catheter Type [Left Forearm INT / Saline Lock ] IV Catheter Type [Right INT / Saline Lock Forearm] IV Catheter Type [Right Hand] Peripheral IV Active Medications - Current Medications Current Medications: Generic Name Dose Route Start Last Admin Trade Name Freq PRN Reason Stop Dose Admin Acetaminophen 650 mg 02/05/20 22:45 02/18/20 09:06 Tylenol PO 650 mg Q4H PRN Administration Pain MILD(1-3)/Fever >100.5/GAMBINO Aspirin 325 mg 02/08/20 18:00 02/18/20 09:05 Aspirin PO 325 mg QDAY MICHAEL Administration Chlordiazepoxide HCl 25 mg 02/08/20 20:00 02/18/20 15:02 Librium PO Not Given TID MICHAEL Clopidogrel Bisulfate 75 mg 02/08/20 18:00 02/18/20 09:06 Plavix PO 75 mg QDAY MICHAEL Administration Famotidine 20 mg 02/07/20 22:00 02/18/20 09:05 Pepcid PO 20 mg BID MICHAEL Administration Fish Oil 2,000 mg 02/17/20 13:00 02/18/20 09:05 Fish Oil PO 2,000 mg BID MICHAEL Administration Folic Acid 1 mg 02/17/20 10:00 02/18/20 09:05 Folvite PO 1 mg QDAY MICHAEL Administration Labetalol HCl 10 mg 02/05/20 20:28 02/16/20 06:09 Labetalol IV 10 mg Q3HR PRN Administration Increased Blood Pressure Melatonin 5 mg 02/17/20 22:00 02/17/20 22:03 Melatonin PO 5 mg QHS MICHAEL Administration Metoclopramide HCl 10 mg 02/05/20 22:45 Reglan IV Q6H PRN Nausea And Vomiting Metoprolol Tartrate 25 mg 02/16/20 19:43 02/18/20 09:08 Metoprolol PO 25 mg BID MICHAEL Administration Miscellaneous Medication 1 tab 02/08/20 17:30 Emtricitabin/Tenofovir [Truvada 200-300 Mg] PO QDAY MICHAEL Miscellaneous Medication 1 each 02/08/20 22:00 Lopinavir/Ritonavir (Nf) PO BID MICHAEL Nicotine 21 mg 02/16/20 02:23 02/18/20 09:08 Habitrol TD 21 mg QDAY MICHAEL Administration Nifedipine 30 mg 02/16/20 22:00 02/18/20 09:08 Procardia Xl PO 30 mg Q12HR MICHAEL Administration Olanzapine 5 mg 02/17/20 22:00 02/17/20 22:01 Zyprexa PO 5 mg QHS MICHAEL Administration Ondansetron HCl 4 mg 02/05/20 22:45 02/10/20 01:28 Zofran IV 4 mg Q8H PRN Administration Nausea And Vomiting Oxycodone/Acetaminophen 1 tab 02/05/20 22:45 02/13/20 11:41 Percocet 5/325 PO 1 tab Q6H PRN Administration Pain, Moderate (4-6) Sodium Chloride 10 ml 02/06/20 10:00 02/18/20 09:10 Sodium Chloride Flush Syringe 10 Ml IV 10 ml BID MICHAEL Administration Sodium Chloride 10 ml 02/05/20 22:45 02/16/20 02:45 Sodium Chloride Flush Syringe 10 Ml IV 10 ml PRN PRN Administration LINE FLUSH Thiamine HCl 100 mg 02/17/20 10:00 02/18/20 09:06 Vitamin B-1 PO 100 mg QDAY MICHAEL Administration Zolpidem Tartrate 5 mg 02/17/20 22:00 02/17/20 22:01 Ambien PO 5 mg QHS MICHAEL Administration Nutrition/Malnutrition Assess - Dietary Evaluation Nutrition/Malnutrition Findings: Nutrition Notes Start: 02/12/20 11:26 Freq: Status: Active Protocol: Document 02/18/20 13:54 AL (Rec: 02/18/20 14:03 AL [email or web address]) Co-Sign 02/18/20 13:54 MK Nutrition Notes Initial or Follow up Brief Note Current Diagnosis Hypertension,Hyperlipidemia Other Pertinent Diagnosis ETOH withdrawals, HIV, foot fracture Current Diet Cardiac diet with Ensure Enlive BID Subjective/Other Information Pt weas asleep during visit. Pt did not answer phone when called. RD noticed 4 Ensure Enlive drinks on tray, 2 opened, 2 unopened. ADL indicates pt only consumes 25% of meals. Nutrition Intervention Add Supplement/Snack (indicate name/kcal Ensure Enlive Daily /protein ) Provides kCal: 350 Provides Protein (gm) 20 Follow-Up By: 02/19/20 Additional Comments F/U PO/ONS intakes
[2020-02-18] MEDS: MELATONIN 5 MG TAB PO SCH (21:13)
[2020-02-18] MEDS: ZOLPIDEM 5 MG TAB PO SCH (21:13)
[2020-02-19 06:08] LABS: Basophils # (Auto) 0.1 K/mm3 (0.0-0.1); Basophils % (Auto) 0.9 % (0.0-1.8); Eosinophils % (Auto) 0.1 % (0.0-4.3); Hematocrit 39.7 % (35.5-45.6); Hemoglobin 12.6 gm/dl (11.8-15.2); Lymphocytes % (Auto) 37.4 % (13.4-35.0); Mean Corpuscular HGB Conc 32 % (32-34); Mean Corpuscular Volume 75 fl (84-94); Monocytes % (Auto) 12.1 % (0.0-7.3); Platelet Count 255 K/mm3 (140-440); Red Blood Count 5.28 M/mm3 (3.65-5.03); Red Cell Distribution Width 22.1 % (13.2-15.2)
[2020-02-19 06:19] LABS: Alanine Aminotransferase 63 units/L (7-56); Albumin 3.2 g/dL (3.9-5); BUN/Creatinine Ratio 12; Blood Urea Nitrogen 13 mg/dL (9-20); Calcium 9.3 mg/dL (8.4-10.2); Hemolysis Index 7
[2020-02-19] MEDS: NIFEdipine XL 30 MG TAB PO SCH ×2 (09:59→23:06)
[2020-02-19] MEDS: OMEGA-3 FATTY ACIDS/FISH OIL 1 GRAM CAP PO SCH ×2 (09:59→23:04)
[2020-02-19] MEDS: FOLIC ACID 1 MG TAB PO SCH (09:59)
[2020-02-19] MEDS: ASPIRIN 325 MG TAB PO SCH (09:59)
[2020-02-19] MEDS: CLOPIDOGREL 75 MG TAB PO SCH (09:59)
[2020-02-19] MEDS: METOPROLOL TARTRATE 25 MG TAB PO SCH ×2 (09:59→23:06)
[2020-02-19] MEDS: NICOTINE 21 MG/24 HR PATCH TD SCH (10:00)
[2020-02-19] MEDS: FAMOTIDINE 20 MG TAB PO SCH ×2 (10:01→23:04)
[2020-02-19] MEDS: chlordiazePOXIDE 25 MG CAP PO SCH ×3 (10:09→20:50)
--- NOTE | 2020-02-19 10:15 | Progress Note ---
Assessment and Plan Assessment and plan: --Febrile illness; patient's T-max last 24 hours 102F Today's labs no WBC, check urine cultures, blood cultures, Chest x-ray to rule out pneumonia bronchitis Antipyretics and supportive care --Acute toxic metabolic encephalopathy; Multifactorial, mainly alcohol-related, alcohol withdrawal symptoms Alcoholic encephalopathy, delirium, Off CIWA protocols Psych evaluation and recommendations appreciated Mild improvement of symptoms, continues to be agitated requiring either a sitter or restraints --Chronic alcohol use; Thiamine folic acid, DC IV fluids --Fracture metatarsal left foot closed; No surgical intervention needed, supportive care --Hypertension urgency; present on admission Now moderate control, continue current antihypertensives and as needed medications --History of HIV AIDS; On antiretrovirals, continue current management --DVT prophylaxis; Lovenox --Restraint for safety --DC planning per case management We will closely monitor the patient and adjust the management as needed Plan of care reviewed with the patient's nurse, case management 02/10/2020. Continue CIWA protocol. Supportive care. 02/11/2020. Patient CIWA score is approximately 8. Patient still requiring restraints for agitation. Continue CIWA protocol 02/12/2020. Patient remains agitated requiring restraints. Continue CIWA protocol. PT evaluation. 02/13/2020. Physical therapy recommends rolling walker with home health PT. 02/14/2020. Nurse reports CIWA score of 10. Continue CIWA protocol. 02/15/20; patient remains confused, with alcohol withdrawal symptoms, on CIWA protocol 02/17/20; psych evaluation and recommendations noted and appreciated We will DC CIWA protocol, continue psych medications, Ativan as needed for agitation 02/18/2020; continue current management, discharge planning per case management History Interval history: I have seen and examined the patient at the bedside today Patient was still agitated slightly better than before, requiring restraints Alert and awake responding appropriately sometimes confused Patient spiked fever last night T-max last 24 hours 102.2 F In mild distress Vital signs noted Hospitalist Physical - Constitutional Vitals: Temp Pulse Resp BP Pulse Ox 98.9 F 84 20 135/69 96 02/19/20 08:26 02/19/20 08:26 02/19/20 08:26 02/19/20 08:26 02/19/20 08:26 General appearance: Present: mild distress, well-nourished, other (Patient is more alert, responding sometimes appropriately, agitated trying to get out of the bed) - EENT Eyes: Present: PERRL, EOM intact - Neck Neck: Present: supple, normal ROM - Respiratory Respiratory effort: normal Respiratory: bilateral: diminished, negative: rales, rhonchi, wheezing - Cardiovascular Rhythm: regular Heart Sounds: Present: S1 & S2 - Extremities Extremities: no ischemia, No edema - Abdominal General gastrointestinal: soft, non-tender, non-distended, normal bowel sounds - Integumentary Integumentary: Present: clear, warm - Psychiatric Psychiatric: appropriate mood/affect, cooperative - Neurologic Neurologic: CNII-XII intact, moves all extremities Results - Labs CBC & Chem 7: 02/19/20 05:41 02/19/20 05:41 Labs: Laboratory Last Values WBC 8.2 K/mm3 (4.5-11.0) 02/19/20 05:41 RBC 5.28 M/mm3 (3.65-5.03) H 02/19/20 05:41 Hgb 12.6 gm/dl (11.8-15.2) 02/19/20 05:41 Hct 39.7 % (35.5-45.6) 02/19/20 05:41 MCV 75 fl (84-94) L 02/19/20 05:41 MCH 24 pg (28-32) L 02/19/20 05:41 MCHC 32 % (32-34) 02/19/20 05:41 RDW 22.1 % (13.2-15.2) H 02/19/20 05:41 Plt Count 255 K/mm3 (140-440) 02/19/20 05:41 Lymph % (Auto) 37.4 % (13.4-35.0) H 02/19/20 05:41 Mcduffie % (Auto) 12.1 % (0.0-7.3) H 02/19/20 05:41 Eos % (Auto) 0.1 % (0.0-4.3) 02/19/20 05:41 Baso % (Auto) 0.9 % (0.0-1.8) 02/19/20 05:41 Lymph # (Auto) 3.0 K/mm3 (1.2-5.4) 02/19/20 05:41 Mcduffie # (Auto) 1.0 K/mm3 (0.0-0.8) H 02/19/20 05:41 Eos # (Auto) 0.0 K/mm3 (0.0-0.4) 02/19/20 05:41 Baso # (Auto) 0.1 K/mm3 (0.0-0.1) 02/19/20 05:41 Add Manual Diff Complete 02/05/20 16:14 Total Counted 100 02/05/20 16:14 Seg Neutrophils % 49.5 % (40.0-70.0) 02/19/20 05:41 Seg Neuts % (Manual) 58.0 % (40.0-70.0) 02/05/20 16:14 Band Neutrophils % 0 % 02/05/20 16:14 Lymphocytes % (Manual) 33.0 % (13.4-35.0) 02/05/20 16:14 Reactive Lymphs % (Man) 0 % 02/05/20 16:14 Monocytes % (Manual) 8.0 % (0.0-7.3) H 02/05/20 16:14 Eosinophils % (Manual) 1.0 % (0.0-4.3) 02/05/20 16:14 Basophils % (Manual) 0 % (0.0-1.8) 02/05/20 16:14 Metamyelocytes % 0 % 02/05/20 16:14 Myelocytes % 0 % 02/05/20 16:14 Promyelocytes % 0 % 02/05/20 16:14 Blast Cells % 0 % 02/05/20 16:14 Nucleated RBC % Not Reportable 02/05/20 16:14 Seg Neutrophils # 4.0 K/mm3 (1.8-7.7) 02/19/20 05:41 Seg Neutrophils # Man 2.8 K/mm3 (1.8-7.7) 02/05/20 16:14 Band Neutrophils # 0.0 K/mm3 02/05/20 16:14 Lymphocytes # (Manual) 1.6 K/mm3 (1.2-5.4) 02/05/20 16:14 Abs React Lymphs (Man) 0.0 K/mm3 02/05/20 16:14 Monocytes # (Manual) 0.4 K/mm3 (0.0-0.8) 02/05/20 16:14 Eosinophils # (Manual) 0.0 K/mm3 (0.0-0.4) 02/05/20 16:14 Basophils # (Manual) 0.0 K/mm3 (0.0-0.1) 02/05/20 16:14 Metamyelocytes # 0.0 K/mm3 02/05/20 16:14 Myelocytes # 0.0 K/mm3 02/05/20 16:14 Promyelocytes # 0.0 K/mm3 02/05/20 16:14 Blast Cells # 0.0 K/mm3 02/05/20 16:14 WBC Morphology Not Reportable 02/05/20 16:14 Hypersegmented Neuts Not Reportable 02/05/20 16:14 Hyposegmented Neuts Not Reportable 02/05/20 16:14 Hypogranular Neuts Not Reportable 02/05/20 16:14 Smudge Cells Not Reportable 02/05/20 16:14 Toxic Granulation Not Reportable 02/05/20 16:14 Toxic Vacuolation Not Reportable 02/05/20 16:14 Dohle Bodies Not Reportable 02/05/20 16:14 Pelger-Huet Anomaly Not Reportable 02/05/20 16:14 Esperanza Rods Not Reportable 02/05/20 16:14 Platelet Estimate Not Reportable 02/05/20 16:14 Clumped Platelets Few 02/05/20 16:14 Plt Clumps, EDTA Not Reportable 02/05/20 16:14 Large Platelets Not Reportable 02/05/20 16:14 Giant Platelets Not Reportable 02/05/20 16:14 Platelet Satelliting Not Reportable 02/05/20 16:14 Plt Morphology Comment Not Reportable 02/05/20 16:14 RBC Morphology Not Reportable 02/05/20 16:14 Dimorphic RBCs Not Reportable 02/05/20 16:14 Polychromasia Not Reportable 02/05/20 16:14 Hypochromasia 1+ 02/05/20 16:14 Poikilocytosis Not Reportable 02/05/20 16:14 Anisocytosis 1+ 02/05/20 16:14 Microcytosis Few 02/05/20 16:14 Macrocytosis Not Reportable 02/05/20 16:14 Spherocytes Not Reportable 02/05/20 16:14 Pappenheimer Bodies Not Reportable 02/05/20 16:14 Sickle Cells Not Reportable 02/05/20 16:14 Target Cells Not Reportable 02/05/20 16:14 Tear Drop Cells Not Reportable 02/05/20 16:14 Ovalocytes Not Reportable 02/05/20 16:14 Helmet Cells Not Reportable 02/05/20 16:14 Sargent-Mosby Bodies Not Reportable 02/05/20 16:14 Beason Rings Not Reportable 02/05/20 16:14 Master Cells Not Reportable 02/05/20 16:14 Bite Cells Not Reportable 02/05/20 16:14 Crenated Cell Not Reportable 02/05/20 16:14 Elliptocytes Not Reportable 02/05/20 16:14 Acanthocytes (Spur) Not Reportable 02/05/20 16:14 Rouleaux Not Reportable 02/05/20 16:14 Hemoglobin C Crystals Not Reportable 02/05/20 16:14 Schistocytes Not Reportable 02/05/20 16:14 Malaria parasites Not Reportable 02/05/20 16:14 Bobby Bodies Not Reportable 02/05/20 16:14 Hem Pathologist Commnt No 02/05/20 16:14 Sodium 137 mmol/L (137-145) 02/19/20 05:41 Potassium 3.0 mmol/L (3.6-5.0) L 02/19/20 05:41 Chloride 102.4 mmol/L (98-107) 02/19/20 05:41 Carbon Dioxide 22 mmol/L (22-30) 02/19/20 05:41 Anion Gap 16 mmol/L 02/19/20 05:41 BUN 13 mg/dL (9-20) 02/19/20 05:41 Creatinine 1.1 mg/dL (0.8-1.3) 02/19/20 05:41 Estimated GFR > 60 ml/min 02/19/20 05:41 BUN/Creatinine Ratio 12 % 02/19/20 05:41 Glucose 84 mg/dL (75-100) 02/19/20 05:41 POC Glucose 79 (70-105) 02/14/20 08:25 Hemoglobin A1c 5.4 % (4-6) 02/06/20 04:58 Calcium 9.3 mg/dL (8.4-10.2) 02/19/20 05:41 Phosphorus 3.30 mg/dL (2.5-4.5) 02/19/20 05:41 Magnesium 1.70 mg/dL (1.7-2.3) 02/19/20 05:41 Total Bilirubin 0.50 mg/dL (0.1-1.2) 02/19/20 05:41 Direct Bilirubin 0.3 mg/dL (0-0.2) H 02/05/20 17:51 Indirect Bilirubin 0.5 mg/dL 02/05/20 17:51 AST 40 units/L (5-40) 02/19/20 05:41 ALT 63 units/L (7-56) H 02/19/20 05:41 Alkaline Phosphatase 116 units/L (35-129) 02/19/20 05:41 Total Protein 8.1 g/dL (6.3-8.2) 02/19/20 05:41 Albumin 3.2 g/dL (3.9-5) L 02/19/20 05:41 Albumin/Globulin Ratio 0.7 % 02/19/20 05:41 Urine Color Yellow (Yellow) 02/05/20 17:47 Urine Turbidity Clear (Clear) 02/05/20 17:47 Urine pH 5.0 (5.0-7.0) 02/05/20 17:47 Ur Specific [place] 1.020 (1.003-1.030) 02/05/20 17:47 Urine Protein 100 mg/dl mg/dL (Negative) 02/05/20 17:47 Urine Glucose (UA) Neg mg/dL (Negative) 02/05/20 17:47 Urine Ketones 20 mg/dL (Negative) 02/05/20 17:47 Urine Blood Sm (Negative) 02/05/20 17:47 Urine Nitrite Neg (Negative) 02/05/20 17:47 Urine Bilirubin Neg (Negative) 02/05/20 17:47 Urine Urobilinogen 2.0 mg/dL (<2.0) 02/05/20 17:47 Ur Leukocyte Esterase Neg (Negative) 02/05/20 17:47 Urine WBC (Auto) 2.0 /HPF (0.0-6.0) 02/05/20 17:47 Urine RBC (Auto) 1.0 /HPF (0.0-6.0) 02/05/20 17:47 U Epithel Cells (Auto) < 1.0 /HPF (0-13.0) 02/05/20 17:47 Urine Mucus Few /HPF 02/05/20 17:47 Salicylates < 0.3 mg/dL (2.8-20.0) L 02/05/20 16:14 Urine Opiates Screen Presumptive negative 02/05/20 17:47 Urine Methadone Screen Presumptive negative 02/05/20 17:47 Acetaminophen 5.0 ug/mL (10.0-30.0) L 02/05/20 16:14 Ur Barbiturates Screen Presumptive negative 02/05/20 17:47 Ur Phencyclidine Scrn Presumptive negative 02/05/20 17:47 Ur Amphetamines Screen Presumptive negative 02/05/20 17:47 U Benzodiazepines Scrn Presumptive negative 02/05/20 17:47 Urine Cocaine Screen Presumptive negative 02/05/20 17:47 U Marijuana (THC) Screen Presumptive negative 02/05/20 17:47 Drugs of Abuse Note Disclamer 02/05/20 17:47 Plasma/Serum Alcohol < 0.01 % (0-0.07) 02/05/20 16:14 [place]/IV: Voiding Method Condom Catheter IV Catheter Type [Right Peripheral IV Antecubital] IV Catheter Type [Right Wrist] Peripheral IV IV Catheter Type [Left Forearm INT / Saline Lock ] IV Catheter Type [Right INT / Saline Lock Forearm] IV Catheter Type [Right Hand] Peripheral IV Active Medications - Current Medications Current Medications: Generic Name Dose Route Start Last Admin Trade Name Freq PRN Reason Stop Dose Admin Acetaminophen 650 mg 02/05/20 22:45 02/18/20 09:06 Tylenol PO 650 mg Q4H PRN Administration Pain MILD(1-3)/Fever >100.5/GAMBINO Aspirin 325 mg 02/08/20 18:00 02/18/20 09:05 Aspirin PO 325 mg QDAY MICHAEL Administration Chlordiazepoxide HCl 25 mg 02/08/20 20:00 02/18/20 20:48 Librium PO 25 mg TID MICHAEL Administration Clopidogrel Bisulfate 75 mg 02/08/20 18:00 02/18/20 09:06 Plavix PO 75 mg QDAY MICHAEL Administration Famotidine 20 mg 02/07/20 22:00 02/18/20 21:13 Pepcid PO 20 mg BID MICAHEL Administration Fish Oil 2,000 mg 02/17/20 13:00 02/18/20 21:13 Fish Oil PO 2,000 mg BID MICHAEL Administration Folic Acid 1 mg 02/17/20 10:00 02/18/20 09:05 Folvite PO 1 mg QDAY MICHAEL Administration Labetalol HCl 10 mg 02/05/20 20:28 02/18/20 20:44 Labetalol IV 10 mg Q3HR PRN Administration Increased Blood Pressure Melatonin 5 mg 02/17/20 22:00 02/18/20 21:13 Melatonin PO 5 mg QHS MICHAEL Administration Metoclopramide HCl 10 mg 02/05/20 22:45 Reglan IV Q6H PRN Nausea And Vomiting Metoprolol Tartrate 25 mg 02/16/20 19:43 02/18/20 21:13 Metoprolol PO 25 mg BID MICHAEL Administration Miscellaneous Medication 1 tab 02/08/20 17:30 Emtricitabin/Tenofovir [Truvada 200-300 Mg] PO QDAY MICHAEL Miscellaneous Medication 1 each 02/08/20 22:00 Lopinavir/Ritonavir (Nf) PO BID MICHAEL Nicotine 21 mg 02/16/20 02:23 02/18/20 09:08 Habitrol TD 21 mg QDAY MICHAEL Administration Nifedipine 30 mg 02/16/20 22:00 02/18/20 21:13 Procardia Xl PO 30 mg Q12HR MICHAEL Administration Olanzapine 5 mg 02/17/20 22:00 02/18/20 21:13 Zyprexa PO 5 mg QHS MICHAEL Administration Ondansetron HCl 4 mg 02/05/20 22:45 02/10/20 01:28 Zofran IV 4 mg Q8H PRN Administration Nausea And Vomiting Oxycodone/Acetaminophen 1 tab 02/05/20 22:45 02/13/20 11:41 Percocet 5/325 PO 1 tab Q6H PRN Administration Pain, Moderate (4-6) Sodium Chloride 10 ml 02/06/20 10:00 02/18/20 21:13 Sodium Chloride Flush Syringe 10 Ml IV 10 ml BID MICHAEL Administration Sodium Chloride 10 ml 02/05/20 22:45 02/16/20 02:45 Sodium Chloride Flush Syringe 10 Ml IV 10 ml PRN PRN Administration LINE FLUSH Thiamine HCl 100 mg 02/17/20 10:00 02/18/20 09:06 Vitamin B-1 PO 100 mg QDAY MICHAEL Administration Zolpidem Tartrate 5 mg 02/17/20 22:00 02/18/20 21:13 Ambien PO 5 mg QHS MCIHAEL Administration Nutrition/Malnutrition Assess - Dietary Evaluation Nutrition/Malnutrition Findings: Nutrition Notes Start: 02/12/20 11:26 Freq: Status: Active Protocol: Document 02/18/20 13:54 AL (Rec: 02/18/20 14:03 AL [email or web address]) Co-Sign 02/18/20 13:54 MK Nutrition Notes Initial or Follow up Brief Note Current Diagnosis Hypertension,Hyperlipidemia Other Pertinent Diagnosis ETOH withdrawals, HIV, foot fracture Current Diet Cardiac diet with Ensure Enlive BID Subjective/Other Information Pt weas asleep during visit. Pt did not answer phone when called. RD noticed 4 Ensure Enlive drinks on tray, 2 opened, 2 unopened. ADL indicates pt only consumes 25% of meals. Nutrition Intervention Add Supplement/Snack (indicate name/kcal Ensure Enlive Daily /protein ) Provides kCal: 350 Provides Protein (gm) 20 Follow-Up By: 02/19/20 Additional Comments F/U PO/ONS intakes
--- NOTE | 2020-02-19 10:17 | XRay Report ---
CHEST 1 VIEW INDICATION: Fever/evaluate for pneumonia. COMPARISON: 12/23/2017. FINDINGS: Support devices: None. Heart: Within normal limits. Lungs/Pleura: No acute air space or interstitial disease. Additional findings: None. IMPRESSION: No acute abnormality. Signer Name: Jimmie Wall MD Signed: 02/19/2020 10:13 AM Workstation Name: [id number]
[2020-02-19] MEDS: THIAMINE 100 MG TAB PO SCH (10:34)
[2020-02-19] MEDS: ACETAMINOPHEN 325 MG TAB PO PRN (20:50)
[2020-02-19] MEDS: ZOLPIDEM 5 MG TAB PO SCH (23:04)
[2020-02-19] MEDS: MELATONIN 5 MG TAB PO SCH (23:05)
[2020-02-20] MEDS: LORazepam 2 MG/ML VIAL IV PRN ×2 (01:02→19:07)
[2020-02-20] MEDS: ACETAMINOPHEN 325 MG TAB PO PRN (05:09)
[2020-02-20] MEDS ORDERED: POTASSIUM CHLORIDE ER 20 MEQ TAB PO ONE (08:29)
[2020-02-20] MEDS: FOLIC ACID 1 MG TAB PO SCH (10:30)
[2020-02-20] MEDS: chlordiazePOXIDE 25 MG CAP PO SCH ×3 (10:30→21:04)
[2020-02-20] MEDS: METOPROLOL TARTRATE 25 MG TAB PO SCH ×2 (10:30→21:05)
[2020-02-20] MEDS: CLOPIDOGREL 75 MG TAB PO SCH (10:30)
[2020-02-20] MEDS: FAMOTIDINE 20 MG TAB PO SCH ×2 (10:30→21:03)
[2020-02-20] MEDS: ASPIRIN 325 MG TAB PO SCH (10:30)
[2020-02-20] MEDS: OMEGA-3 FATTY ACIDS/FISH OIL 1 GRAM CAP PO SCH ×2 (10:30→21:04)
[2020-02-20] MEDS: THIAMINE 100 MG TAB PO SCH (10:31)
[2020-02-20] MEDS: NIFEdipine XL 30 MG TAB PO SCH ×2 (10:32→21:04)
[2020-02-20] MEDS: NICOTINE 21 MG/24 HR PATCH TD SCH (10:34)
--- NOTE | 2020-02-20 11:09 | Progress Note ---
Assessment and Plan Assessment and plan: --Febrile illness; patient's T-max last 24 hours 101.7 F Today's labs no WBC, check urine cultures, blood cultures, Chest x-ray no acute abnormalities Antipyretics , empiric antibiotic Rocephin and Zithromax . --PUI/patient high suspicion for Covid 19 isolation precautions, check jasso PCR ID consult, continue supportive care Check inflammatory markers after coronary test is reported --Acute toxic metabolic encephalopathy; Multifactorial, mainly alcohol-related, alcohol withdrawal symptoms Alcoholic encephalopathy, delirium, Off CIWA protocols Psych evaluation and recommendations appreciated Mild improvement of symptoms, continues to be agitated requiring either a sitter or restraints, check CT head without contrast --Chronic alcohol use; Thiamine folic acid, DC IV fluids --Fracture metatarsal left foot closed; No surgical intervention needed, supportive care --Hypertension urgency; present on admission Now moderate control, continue current antihypertensives and as needed medicati ons --History of HIV AIDS; On antiretrovirals, continue current management --Moderate malnutrition/hypoalbuminemia; Nutrition supplements, supportive care Consult dietitian --DVT prophylaxis; Lovenox --Restraint for safety --DC planning per case management We will closely monitor the patient and adjust the management as needed Plan of care reviewed with the patient's nurse, case management 02/10/2020. Continue CIWA protocol. Supportive care. 02/11/2020. Patient CIWA score is approximately 8. Patient still requiring restraints for agitation. Continue CIWA protocol 02/12/2020. Patient remains agitated requiring restraints. Continue CIWA protocol. PT evaluation. 02/13/2020. Physical therapy recommends rolling walker with home health PT. 02/14/2020. Nurse reports CIWA score of 10. Continue CIWA protocol. 02/15/20; patient remains confused, with alcohol withdrawal symptoms, on CIWA protocol 02/17/20; psych evaluation and recommendations noted and appreciated We will DC CIWA protocol, continue psych medications, Ativan as needed for agitation 02/18/2020; continue current management, discharge planning per case management 02/18; patient spiked fever of 102 F, cultures blood urine sent, chest x-ray requested 02/19; chest x-ray negative for acute abnormality, continues to have fever today 101.7 F Since patient has multiple risk factors like HIV, chronic alcohol use, we will rule out COVID-19 Placed isolation, Jasso PCR sent, consulted ID History Interval history: I have seen and examined the patient at the bedside this morning Patient is sleeping easily awakens, restraint for safety due to agitation Patient is febrile, T-max last 24 hours 101.7 F Patient responds to simple questions appropriately Mild distress due to fever, vital signs reviewed Hospitalist Physical - Constitutional Vitals: Temp Pulse Resp BP Pulse Ox 98.2 F 81 18 124/80 91 02/20/20 08:28 02/20/20 10:30 02/20/20 08:28 02/20/20 10:30 02/20/20 08:28 General appearance: Present: mild distress, well-nourished, other (Patient is more alert, responding sometimes appropriately, agitated trying to get out of the bed) - EENT Eyes: Present: PERRL, EOM intact - Neck Neck: Present: supple, normal ROM - Respiratory Respiratory effort: normal Respiratory: bilateral: diminished, negative: rales, rhonchi, wheezing - Cardiovascular Rhythm: regular Heart Sounds: Present: S1 & S2 - Extremities Extremities: no ischemia, No edema - Abdominal General gastrointestinal: soft, non-tender, non-distended, normal bowel sounds - Integumentary Integumentary: Present: clear, warm - Psychiatric Psychiatric: appropriate mood/affect, other (Trying to get out of the bed) - Neurologic Neurologic: moves all extremities Results - Labs CBC & Chem 7: 02/19/20 05:41 02/19/20 05:41 Labs: Laboratory Last Values WBC 8.2 K/mm3 (4.5-11.0) 02/19/20 05:41 RBC 5.28 M/mm3 (3.65-5.03) H 02/19/20 05:41 Hgb 12.6 gm/dl (11.8-15.2) 02/19/20 05:41 Hct 39.7 % (35.5-45.6) 02/19/20 05:41 MCV 75 fl (84-94) L 02/19/20 05:41 MCH 24 pg (28-32) L 02/19/20 05:41 MCHC 32 % (32-34) 02/19/20 05:41 RDW 22.1 % (13.2-15.2) H 02/19/20 05:41 Plt Count 255 K/mm3 (140-440) 02/19/20 05:41 Lymph % (Auto) 37.4 % (13.4-35.0) H 02/19/20 05:41 [place] % (Auto) 12.1 % (0.0-7.3) H 02/19/20 05:41 Eos % (Auto) 0.1 % (0.0-4.3) 02/19/20 05:41 Baso % (Auto) 0.9 % (0.0-1.8) 02/19/20 05:41 Lymph # (Auto) 3.0 K/mm3 (1.2-5.4) 02/19/20 05:41 [place] # (Auto) 1.0 K/mm3 (0.0-0.8) H 02/19/20 05:41 Eos # (Auto) 0.0 K/mm3 (0.0-0.4) 02/19/20 05:41 Baso # (Auto) 0.1 K/mm3 (0.0-0.1) 02/19/20 05:41 Add Manual Diff Complete 02/05/20 16:14 Total Counted 100 02/05/20 16:14 Seg Neutrophils % 49.5 % (40.0-70.0) 02/19/20 05:41 Seg Neuts % (Manual) 58.0 % (40.0-70.0) 02/05/20 16:14 Band Neutrophils % 0 % 02/05/20 16:14 Lymphocytes % (Manual) 33.0 % (13.4-35.0) 02/05/20 16:14 Reactive Lymphs % (Man) 0 % 02/05/20 16:14 Monocytes % (Manual) 8.0 % (0.0-7.3) H 02/05/20 16:14 Eosinophils % (Manual) 1.0 % (0.0-4.3) 02/05/20 16:14 Basophils % (Manual) 0 % (0.0-1.8) 02/05/20 16:14 Metamyelocytes % 0 % 02/05/20 16:14 Myelocytes % 0 % 02/05/20 16:14 Promyelocytes % 0 % 02/05/20 16:14 Blast Cells % 0 % 02/05/20 16:14 Nucleated RBC % Not Reportable 02/05/20 16:14 Seg Neutrophils # 4.0 K/mm3 (1.8-7.7) 02/19/20 05:41 Seg Neutrophils # Man 2.8 K/mm3 (1.8-7.7) 02/05/20 16:14 Band Neutrophils # 0.0 K/mm3 02/05/20 16:14 Lymphocytes # (Manual) 1.6 K/mm3 (1.2-5.4) 02/05/20 16:14 Abs React Lymphs (Man) 0.0 K/mm3 02/05/20 16:14 Monocytes # (Manual) 0.4 K/mm3 (0.0-0.8) 02/05/20 16:14 Eosinophils # (Manual) 0.0 K/mm3 (0.0-0.4) 02/05/20 16:14 Basophils # (Manual) 0.0 K/mm3 (0.0-0.1) 02/05/20 16:14 Metamyelocytes # 0.0 K/mm3 02/05/20 16:14 Myelocytes # 0.0 K/mm3 02/05/20 16:14 Promyelocytes # 0.0 K/mm3 02/05/20 16:14 Blast Cells # 0.0 K/mm3 02/05/20 16:14 WBC Morphology Not Reportable 02/05/20 16:14 Hypersegmented Neuts Not Reportable 02/05/20 16:14 Hyposegmented Neuts Not Reportable 02/05/20 16:14 Hypogranular Neuts Not Reportable 02/05/20 16:14 Smudge Cells Not Reportable 02/05/20 16:14 Toxic Granulation Not Reportable 02/05/20 16:14 Toxic Vacuolation Not Reportable 02/05/20 16:14 Dohle Bodies Not Reportable 02/05/20 16:14 Pelger-Huet Anomaly Not Reportable 02/05/20 16:14 Esperazna Rods Not Reportable 02/05/20 16:14 Platelet Estimate Not Reportable 02/05/20 16:14 Clumped Platelets Few 02/05/20 16:14 Plt Clumps, EDTA Not Reportable 02/05/20 16:14 Large Platelets Not Reportable 02/05/20 16:14 Giant Platelets Not Reportable 02/05/20 16:14 Platelet Satelliting Not Reportable 02/05/20 16:14 Plt Morphology Comment Not Reportable 02/05/20 16:14 RBC Morphology Not Reportable 02/05/20 16:14 Dimorphic RBCs Not Reportable 02/05/20 16:14 Polychromasia Not Reportable 02/05/20 16:14 Hypochromasia 1+ 02/05/20 16:14 Poikilocytosis Not Reportable 02/05/20 16:14 Anisocytosis 1+ 02/05/20 16:14 Microcytosis Few 02/05/20 16:14 Macrocytosis Not Reportable 02/05/20 16:14 Spherocytes Not Reportable 02/05/20 16:14 Pappenheimer Bodies Not Reportable 02/05/20 16:14 Sickle Cells Not Reportable 02/05/20 16:14 Target Cells Not Reportable 02/05/20 16:14 Tear Drop Cells Not Reportable 02/05/20 16:14 Ovalocytes Not Reportable 02/05/20 16:14 Helmet Cells Not Reportable 02/05/20 16:14 Sargent-Naomi Bodies Not Reportable 02/05/20 16:14 [place] Rings Not Reportable 02/05/20 16:14 [place] Cells Not Reportable 02/05/20 16:14 Bite Cells Not Reportable 02/05/20 16:14 Crenated Cell Not Reportable 02/05/20 16:14 Elliptocytes Not Reportable 02/05/20 16:14 Acanthocytes (Spur) Not Reportable 02/05/20 16:14 Rouleaux Not Reportable 02/05/20 16:14 Hemoglobin C Crystals Not Reportable 02/05/20 16:14 Schistocytes Not Reportable 02/05/20 16:14 Malaria parasites Not Reportable 02/05/20 16:14 Bobby Bodies Not Reportable 02/05/20 16:14 Hem Pathologist Commnt No 02/05/20 16:14 Sodium 137 mmol/L (137-145) 02/19/20 05:41 Potassium 3.0 mmol/L (3.6-5.0) L 02/19/20 05:41 Chloride 102.4 mmol/L (98-107) 02/19/20 05:41 Carbon Dioxide 22 mmol/L (22-30) 02/19/20 05:41 Anion Gap 16 mmol/L 02/19/20 05:41 BUN 13 mg/dL (9-20) 02/19/20 05:41 Creatinine 1.1 mg/dL (0.8-1.3) 02/19/20 05:41 Estimated GFR > 60 ml/min 02/19/20 05:41 BUN/Creatinine Ratio 12 % 02/19/20 05:41 Glucose 84 mg/dL (75-100) 02/19/20 05:41 POC Glucose 79 (70-105) 02/14/20 08:25 Hemoglobin A1c 5.4 % (4-6) 02/06/20 04:58 Calcium 9.3 mg/dL (8.4-10.2) 02/19/20 05:41 Phosphorus 3.30 mg/dL (2.5-4.5) 02/19/20 05:41 Magnesium 1.70 mg/dL (1.7-2.3) 02/19/20 05:41 Total Bilirubin 0.50 mg/dL (0.1-1.2) 02/19/20 05:41 Direct Bilirubin 0.3 mg/dL (0-0.2) H 02/05/20 17:51 Indirect Bilirubin 0.5 mg/dL 02/05/20 17:51 AST 40 units/L (5-40) 02/19/20 05:41 ALT 63 units/L (7-56) H 02/19/20 05:41 Alkaline Phosphatase 116 units/L (35-129) 02/19/20 05:41 Total Protein 8.1 g/dL (6.3-8.2) 02/19/20 05:41 Albumin 3.2 g/dL (3.9-5) L 02/19/20 05:41 Albumin/Globulin Ratio 0.7 % 02/19/20 05:41 Urine Color Yellow (Yellow) 02/05/20 17:47 Urine Turbidity Clear (Clear) 02/05/20 17:47 Urine pH 5.0 (5.0-7.0) 02/05/20 17:47 Ur Specific [place] 1.020 (1.003-1.030) 02/05/20 17:47 Urine Protein 100 mg/dl mg/dL (Negative) 02/05/20 17:47 Urine Glucose (UA) Neg mg/dL (Negative) 02/05/20 17:47 Urine Ketones 20 mg/dL (Negative) 02/05/20 17:47 Urine Blood Sm (Negative) 02/05/20 17:47 Urine Nitrite Neg (Negative) 02/05/20 17:47 Urine Bilirubin Neg (Negative) 02/05/20 17:47 Urine Urobilinogen 2.0 mg/dL (<2.0) 02/05/20 17:47 Ur Leukocyte Esterase Neg (Negative) 02/05/20 17:47 Urine WBC (Auto) 2.0 /HPF (0.0-6.0) 02/05/20 17:47 Urine RBC (Auto) 1.0 /HPF (0.0-6.0) 02/05/20 17:47 U Epithel Cells (Auto) < 1.0 /HPF (0-13.0) 02/05/20 17:47 Urine Mucus Few /HPF 02/05/20 17:47 Salicylates < 0.3 mg/dL (2.8-20.0) L 02/05/20 16:14 Urine Opiates Screen Presumptive negative 02/05/20 17:47 Urine Methadone Screen Presumptive negative 02/05/20 17:47 Acetaminophen 5.0 ug/mL (10.0-30.0) L 02/05/20 16:14 Ur Barbiturates Screen Presumptive negative 02/05/20 17:47 Ur Phencyclidine Scrn Presumptive negative 02/05/20 17:47 Ur Amphetamines Screen Presumptive negative 02/05/20 17:47 U Benzodiazepines Scrn Presumptive negative 02/05/20 17:47 Urine Cocaine Screen Presumptive negative 02/05/20 17:47 U Marijuana (THC) Screen Presumptive negative 02/05/20 17:47 Drugs of Abuse Note Disclamer 02/05/20 17:47 Plasma/Serum Alcohol < 0.01 % (0-0.07) 02/05/20 16:14 Microbiology: Microbiology 02/19/20 14:07 Peripheral/Venous Blood Culture - Preliminary Culture in Progress 02/19/20 11:00 Peripheral/Venous Blood Culture - Preliminary Culture in Progress [place]/IV: Voiding Method Condom Catheter IV Catheter Type [Right Peripheral IV Antecubital] IV Catheter Type [Right Wrist] Peripheral IV IV Catheter Type [Left Forearm INT / Saline Lock ] IV Catheter Type [Right INT / Saline Lock Forearm] IV Catheter Type [Right Hand] Peripheral IV Active Medications - Current Medications Current Medications: Generic Name Dose Route Start Last Admin Trade Name Freq PRN Reason Stop Dose Admin Acetaminophen 650 mg 02/05/20 22:45 02/20/20 05:09 Tylenol PO 650 mg Q4H PRN Administration Pain MILD(1-3)/Fever >100.5/GAMBINO Aspirin 325 mg 02/08/20 18:00 02/20/20 10:30 Aspirin PO 325 mg QDAY MICHAEL Administration Chlordiazepoxide HCl 25 mg 02/08/20 20:00 02/20/20 10:30 Librium PO 25 mg TID MICHAEL Administration Clopidogrel Bisulfate 75 mg 02/08/20 18:00 02/20/20 10:30 Plavix PO 75 mg QDAY MICHAEL Administration Famotidine 20 mg 02/07/20 22:00 02/20/20 10:30 Pepcid PO 20 mg BID MICHAEL Administration Fish Oil 2,000 mg 02/17/20 13:00 02/20/20 10:30 Fish Oil PO 2,000 mg BID MICHAEL Administration Folic Acid 1 mg 02/17/20 10:00 02/20/20 10:30 Folvite PO 1 mg QDAY [facility] Administration Ceftriaxone Sodium 1 gm in 50 mls @ 100 mls/hr 02/21/20 10:00 Rocephin/Ns 1 Gm/50 Ml IV Q24HR [facility] Protocol Labetalol HCl 10 mg 02/05/20 20:28 02/18/20 20:44 Labetalol IV 10 mg Q3HR PRN Administration Increased Blood Pressure Lorazepam 2 mg 02/20/20 00:39 02/20/20 01:02 Ativan IV 2 mg Q1HR PRN Administration CIWA-Ar 8-15 Melatonin 5 mg 02/17/20 22:00 02/19/20 23:05 Melatonin PO 5 mg QHS MICHAEL Administration Metoclopramide HCl 10 mg 02/05/20 22:45 Reglan IV Q6H PRN Nausea And Vomiting Metoprolol Tartrate 25 mg 02/16/20 19:43 02/20/20 10:30 Metoprolol PO 25 mg BID MICHAEL Administration Miscellaneous Medication 1 tab 02/08/20 17:30 Emtricitabin/Tenofovir [Truvada 200-300 Mg] PO QDAY [facility] Miscellaneous Medication 1 each 02/08/20 22:00 Lopinavir/Ritonavir (Nf) PO BID MICHAEL Nicotine 21 mg 02/16/20 02:23 02/20/20 10:34 Habitrol TD 21 mg QDAY MICHAEL Administration Nifedipine 30 mg 02/16/20 22:00 02/20/20 10:32 Procardia Xl PO 30 mg Q12HR MICHAEL Administration Olanzapine 5 mg 02/17/20 22:00 02/19/20 23:05 Zyprexa PO 5 mg QHS MICHAEL Administration Ondansetron HCl 4 mg 02/05/20 22:45 02/10/20 01:28 Zofran IV 4 mg Q8H PRN Administration Nausea And Vomiting Oxycodone/Acetaminophen 1 tab 02/05/20 22:45 02/13/20 11:41 Percocet 5/325 PO 1 tab Q6H PRN Administration Pain, Moderate (4-6) Sodium Chloride 10 ml 02/06/20 10:00 02/20/20 10:33 Sodium Chloride Flush Syringe 10 Ml IV 10 ml BID MICHAEL Administration Sodium Chloride 10 ml 02/05/20 22:45 02/16/20 02:45 Sodium Chloride Flush Syringe 10 Ml IV 10 ml PRN PRN Administration LINE FLUSH Thiamine HCl 100 mg 02/17/20 10:00 02/20/20 10:31 Vitamin B-1 PO 100 mg QDAY MICHAEL Administration Zolpidem Tartrate 5 mg 02/17/20 22:00 02/19/20 23:04 Ambien PO 5 mg QHS MICHAEL Administration Nutrition/Malnutrition Assess - Dietary Evaluation Nutrition/Malnutrition Findings: Nutrition Notes Start: 02/12/20 11:26 Freq: Status: Active Protocol: Document 02/19/20 12:27 ISMAEL (Rec: 02/19/20 12:36 ISMAEL [id number]) Co-Sign 02/19/20 12:27 Nutrition Notes Initial or Follow up Reassessment Current Diagnosis Hypertension,Hyperlipidemia Other Pertinent Diagnosis ETOH withdrawals, HIV, foot fracture Current Diet Cardiac diet with Ensure Enlive BID Labs/Tests K 3.0 Pertinent Medications Thiamine Folic Acid Fish Oil Height 6 ft 1 in Weight 87.7 kg Chromo Body Weight (kg) 83.63 BMI 25.4 Weight change and time frame Wt change noted. Pt edema improving. Weight Status Overweight Subjective/Other Information F/U for PO/ONS intakes. Pt reports consuming 50% meals and ONS. Pt was distressed at time of visit d/t RN stating he cannot get out of bed or drive his truck home. Percent of energy/protein needs met: 57%/76% (PO and ONS) Burn Absent Trauma Absent GI Symptoms None Usual Diet at Home Meals on Wheels Current % PO Fair (50-74%) Minimum of two criteria No physical signs of malnutrition #2 Nutrition Diagnosis Inadequate oral intake Diagnosis Progress(for reassessment Continues documentation) #1 Nutrition Diagnosis Food and nutrition-related knowledge deficit,Other: ( Specify in comment below) Diagnosis Progress(for reassessment Continues documentation) Is patient on ventilator? No Is Patient Ambulatory and/or Out of Bed No REE-([place]-St Jeor-confined to bed) 4114.684 Calculation Used for Recommendations [facility] Additional Notes Pro: 70-88 g (0.8-1 g/kg) Fluid: 1ml/kcal Nutrition Intervention Change Diet Order: Continue Add Supplement/Snack (indicate name/kcal Ensure Enlive Daily /protein ) Provides kCal: 350 Provides Protein (gm) 20 Goal #1 Pt will meet at least 75% of energy and protein needs. Anticipated Discharge Needs: Cardiac diet (low sodium) Follow-Up By: 02/23/20 Additional Comments F/U for PO/ONS intakes
--- NOTE | 2020-02-20 11:30 | Cat Scan Report ---
NONENHANCED CT SCAN OF THE HEAD: INDICATION / CLINICAL INFORMATION: 54 years Male; Altered level of consciousness. TECHNIQUE: Routine CT head without contrast. All CT scans at this location are performed using CT dos e reduction for ALARA by means of automated exposure control. COMPARISON: CT scan of the head from 09/27/2017 and MRI scan from 09/28/2017 FINDINGS: BRAIN / INTRACRANIAL CONTENTS: No acute hemorrhage, mass effect, midline shift, hydrocephalus, or acu te, large territorial infarct. Chronic ischemic changes due to chronic small vessel disease in the de ep hemispheric white matter in the corpus striatum CRANIOCERVICAL JUNCTION: No significant abnormality. ORBITS: No significant abnormality of visualized orbits. SINUSES / MASTOIDS: Right maxillary sinus is almost completely opacified due to mucosal thickening ADDITIONAL FINDINGS: None. IMPRESSION: No acute focal parenchymal lesion in the brain Signer Name: Malou Garcia MD Signed: 02/20/2020 11:26 AM Workstation Name: [id number]
[2020-02-20] MEDS ORDERED: AZITHROMYCIN 500 MG in SODIUM CHLORIDE 0.9% 250ML 250 ML IV SCH (13:00)
[2020-02-20] MEDS: cefTRIAXone/NS 1 GM/50 ML 1 GM/50 ML BAG IV SCH (15:10)
[2020-02-20] MEDS: ZOLPIDEM 5 MG TAB PO SCH (21:03)
[2020-02-20] MEDS: MELATONIN 5 MG TAB PO SCH (21:04)
[2020-02-20] MEDS: oxyCODONE /ACETAMINOPHEN 5-325MG TAB PO PRN (21:04)
[2020-02-21] MEDS: LORazepam 2 MG/ML VIAL IV PRN ×3 (00:25→21:03)
[2020-02-21 08:00] LABS: Basophils # (Auto) 0.1 K/mm3 (0.0-0.1); Basophils % (Auto) 1.2 % (0.0-1.8); Eosinophils % (Auto) 0.1 % (0.0-4.3); Hematocrit 39.8 % (35.5-45.6); Hemoglobin 12.9 gm/dl (11.8-15.2); Lymphocytes # (Auto) 2.8 K/mm3 (1.2-5.4); Lymphocytes % (Auto) 49.8 % (13.4-35.0); Mean Corpuscular HGB Conc 32 % (32-34); Mean Corpuscular Volume 74 fl (84-94); Monocytes # (Auto) 0.6 K/mm3 (0.0-0.8); Monocytes % (Auto) 9.8 % (0.0-7.3); Platelet Count 227 K/mm3 (140-440); Red Blood Count 5.36 M/mm3 (3.65-5.03)
[2020-02-21 08:01] LABS: Red Cell Distribution Width 21.8 % (13.2-15.2)
[2020-02-21 08:27] LABS: Alanine Aminotransferase 75 units/L (7-56); Albumin 3.1 g/dL (3.9-5); BUN/Creatinine Ratio 15; Blood Urea Nitrogen 15 mg/dL (9-20); Calcium 9.5 mg/dL (8.4-10.2); Hemolysis Index 29
[2020-02-21] MEDS: chlordiazePOXIDE 25 MG CAP PO SCH ×3 (08:28→20:30)
--- NOTE | 2020-02-21 09:03 | Progress Note ---
Assessment and Plan Assessment and plan: --Febrile illness; afebrile this morning T-max last 24 hours; 100.5 F Follow-up urine cultures, blood cultures, Chest x-ray no acute abnormalities Antipyretics , empiric antibiotic Rocephin and Zithromax. ID consulted. --PUI/patient high suspicion for Covid 19 isolation precautions, check jasso PCR ID consult, continue supportive care Check inflammatory markers if coronary test is positive --Acute toxic metabolic encephalopathy; Multifactorial, mainly alcohol-related, alcohol withdrawal symptoms Alcoholic encephalopathy, delirium, Off CIWA protocols Psych evaluation and recommendations appreciated Mild improvement of symptoms, continues to be agitated requiring either a sitter or restraints, CT head negative --Chronic alcohol use; Thiamine folic acid, DC IV fluids --Fracture metatarsal left foot closed; evaluated by Ortho No surgical intervention needed, supportive care --Hypertension urgency; present on admission Now moderate control, continue current antihypertensives and as needed medications --History of HIV AIDS; On antiretrovirals, continue current management ID consulted --Moderate malnutrition/hypoalbuminemia; Nutrition supplements, supportive care Consult dietitian --DVT prophylaxis; Lovenox --Restraint for safety --DC planning per case management We will closely monitor the patient and adjust the management as needed Plan of care reviewed with the patient's nurse, case management 02/10/2020. Continue CIWA protocol. Supportive care. 02/11/2020. Patient CIWA score is approximately 8. Patient still requiring restraints for agitation. Continue CIWA protocol 02/12/2020. Patient remains agitated requiring restraints. Continue CIWA protocol. PT evaluation. 02/13/2020. Physical therapy recommends rolling walker with home health PT. 02/14/2020. Nurse reports CIWA score of 10. Continue CIWA protocol. 02/15/20; patient remains confused, with alcohol withdrawal symptoms, on CIWA protocol 02/17/20; psych evaluation and recommendations noted and appreciated We will DC CIWA protocol, continue psych medications, Ativan as needed for agitation 02/18/2020; continue current management, discharge planning per case management 02/18; patient spiked fever of 102 F, cultures blood urine sent, chest x-ray requested 02/19; chest x-ray negative for acute abnormality, continues to have fever today 101.7 F Since patient has multiple risk factors like HIV, chronic alcohol use, we will rule out COVID-19 Placed isolation, Jasso PCR sent, consulted ID 02/20; patient has low-grade fever, on empiric antibiotics, follow cultures, ID consulted Awaiting jasso PCR test report, discussed with ID, restraint for safety, patient is transferred to [facility]/Covid unit History Interval history: Patient continues to be agitated and trying to get out of bed, requiring restraints Febrile T-max last 24 hours 100.5 F Jasso PCR test sent, pending report Vital signs reviewed Hospitalist Physical - Physical exam Narrative exam: Physical examination is not performed due to PPE preservation strategy. Please refer to the nurses physical examination - Constitutional Vitals: Temp Pulse Resp BP Pulse Ox 99.5 F 82 18 149/81 91 02/21/20 08:31 02/21/20 08:31 02/21/20 08:31 02/21/20 08:31 02/21/20 08:31 General appearance: Present: mild distress, well-nourished, other (Patient is more alert, responding sometimes appropriately, agitated trying to get out of the bed) Results - Labs CBC & Chem 7: 02/21/20 07:46 02/21/20 07:46 Labs: Laboratory Last Values WBC 5.7 K/mm3 (4.5-11.0) 02/21/20 07:46 RBC 5.36 M/mm3 (3.65-5.03) H 02/21/20 07:46 Hgb 12.9 gm/dl (11.8-15.2) 02/21/20 07:46 Hct 39.8 % (35.5-45.6) 02/21/20 07:46 MCV 74 fl (84-94) L 02/21/20 07:46 MCH 24 pg (28-32) L 02/21/20 07:46 MCHC 32 % (32-34) 02/21/20 07:46 RDW 21.8 % (13.2-15.2) H 02/21/20 07:46 Plt Count 227 K/mm3 (140-440) 02/21/20 07:46 Lymph % (Auto) 49.8 % (13.4-35.0) H 02/21/20 07:46 Griggs % (Auto) 9.8 % (0.0-7.3) H 02/21/20 07:46 Eos % (Auto) 0.1 % (0.0-4.3) 02/21/20 07:46 Baso % (Auto) 1.2 % (0.0-1.8) 02/21/20 07:46 Lymph # (Auto) 2.8 K/mm3 (1.2-5.4) 02/21/20 07:46 Griggs # (Auto) 0.6 K/mm3 (0.0-0.8) 02/21/20 07:46 Eos # (Auto) 0.0 K/mm3 (0.0-0.4) 02/21/20 07:46 Baso # (Auto) 0.1 K/mm3 (0.0-0.1) 02/21/20 07:46 Add Manual Diff Complete 02/05/20 16:14 Total Counted 100 02/05/20 16:14 Seg Neutrophils % 39.1 % (40.0-70.0) L 02/21/20 07:46 Seg Neuts % (Manual) 58.0 % (40.0-70.0) 02/05/20 16:14 Band Neutrophils % 0 % 02/05/20 16:14 Lymphocytes % (Manual) 33.0 % (13.4-35.0) 02/05/20 16:14 Reactive Lymphs % (Man) 0 % 02/05/20 16:14 Monocytes % (Manual) 8.0 % (0.0-7.3) H 02/05/20 16:14 Eosinophils % (Manual) 1.0 % (0.0-4.3) 02/05/20 16:14 Basophils % (Manual) 0 % (0.0-1.8) 02/05/20 16:14 Metamyelocytes % 0 % 02/05/20 16:14 Myelocytes % 0 % 02/05/20 16:14 Promyelocytes % 0 % 02/05/20 16:14 Blast Cells % 0 % 02/05/20 16:14 Nucleated RBC % Not Reportable 02/05/20 16:14 Seg Neutrophils # 2.2 K/mm3 (1.8-7.7) 02/21/20 07:46 Seg Neutrophils # Man 2.8 K/mm3 (1.8-7.7) 02/05/20 16:14 Band Neutrophils # 0.0 K/mm3 02/05/20 16:14 Lymphocytes # (Manual) 1.6 K/mm3 (1.2-5.4) 02/05/20 16:14 Abs React Lymphs (Man) 0.0 K/mm3 02/05/20 16:14 Monocytes # (Manual) 0.4 K/mm3 (0.0-0.8) 02/05/20 16:14 Eosinophils # (Manual) 0.0 K/mm3 (0.0-0.4) 02/05/20 16:14 Basophils # (Manual) 0.0 K/mm3 (0.0-0.1) 02/05/20 16:14 Metamyelocytes # 0.0 K/mm3 02/05/20 16:14 Myelocytes # 0.0 K/mm3 02/05/20 16:14 Promyelocytes # 0.0 K/mm3 02/05/20 16:14 Blast Cells # 0.0 K/mm3 02/05/20 16:14 WBC Morphology Not Reportable 02/05/20 16:14 Hypersegmented Neuts Not Reportable 02/05/20 16:14 Hyposegmented Neuts Not Reportable 02/05/20 16:14 Hypogranular Neuts Not Reportable 02/05/20 16:14 Smudge Cells Not Reportable 02/05/20 16:14 Toxic Granulation Not Reportable 02/05/20 16:14 Toxic Vacuolation Not Reportable 02/05/20 16:14 Dohle Bodies Not Reportable 02/05/20 16:14 Pelger-Huet Anomaly Not Reportable 02/05/20 16:14 Esperanza Rods Not Reportable 02/05/20 16:14 Platelet Estimate Not Reportable 02/05/20 16:14 Clumped Platelets Few 02/05/20 16:14 Plt Clumps, EDTA Not Reportable 02/05/20 16:14 Large Platelets Not Reportable 02/05/20 16:14 Giant Platelets Not Reportable 02/05/20 16:14 Platelet Satelliting Not Reportable 02/05/20 16:14 Plt Morphology Comment Not Reportable 02/05/20 16:14 RBC Morphology Not Reportable 02/05/20 16:14 Dimorphic RBCs Not Reportable 02/05/20 16:14 Polychromasia Not Reportable 02/05/20 16:14 Hypochromasia 1+ 02/05/20 16:14 Poikilocytosis Not Reportable 02/05/20 16:14 Anisocytosis 1+ 02/05/20 16:14 Microcytosis Few 02/05/20 16:14 Macrocytosis Not Reportable 02/05/20 16:14 Spherocytes Not Reportable 02/05/20 16:14 Pappenheimer Bodies Not Reportable 02/05/20 16:14 Sickle Cells Not Reportable 02/05/20 16:14 Target Cells Not Reportable 02/05/20 16:14 Tear Drop Cells Not Reportable 02/05/20 16:14 Ovalocytes Not Reportable 02/05/20 16:14 Helmet Cells Not Reportable 02/05/20 16:14 Sargent-Delano Bodies Not Reportable 02/05/20 16:14 [place] Rings Not Reportable 02/05/20 16:[address] Cells Not Reportable 02/05/20 16:14 Bite Cells Not Reportable 02/05/20 16:14 Crenated Cell Not Reportable 02/05/20 16:14 Elliptocytes Not Reportable 02/05/20 16:14 Acanthocytes (Spur) Not Reportable 02/05/20 16:14 Rouleaux Not Reportable 02/05/20 16:14 Hemoglobin C Crystals Not Reportable 02/05/20 16:14 Schistocytes Not Reportable 02/05/20 16:14 Malaria parasites Not Reportable 02/05/20 16:14 Bobby Bodies Not Reportable 02/05/20 16:14 Hem Pathologist Commnt No 02/05/20 16:14 Sodium 138 mmol/L (137-145) 02/21/20 07:46 Potassium 3.6 mmol/L (3.6-5.0) 02/21/20 07:46 Chloride 106.0 mmol/L (98-107) 02/21/20 07:46 Carbon Dioxide 21 mmol/L (22-30) L 02/21/20 07:46 Anion Gap 15 mmol/L 02/21/20 07:46 BUN 15 mg/dL (9-20) 02/21/20 07:46 Creatinine 1.0 mg/dL (0.8-1.3) 02/21/20 07:46 Estimated GFR > 60 ml/min 02/21/20 07:46 BUN/Creatinine Ratio 15 % 02/21/20 07:46 Glucose 87 mg/dL (75-100) 02/21/20 07:46 POC Glucose 79 (70-105) 02/14/20 08:25 Hemoglobin A1c 5.4 % (4-6) 02/06/20 04:58 Calcium 9.5 mg/dL (8.4-10.2) 02/21/20 07:46 Phosphorus 3.30 mg/dL (2.5-4.5) 02/19/20 05:41 Magnesium 1.70 mg/dL (1.7-2.3) 02/19/20 05:41 Total Bilirubin 0.40 mg/dL (0.1-1.2) 02/21/20 07:46 Direct Bilirubin 0.3 mg/dL (0-0.2) H 02/05/20 17:51 Indirect Bilirubin 0.5 mg/dL 02/05/20 17:51 AST 85 units/L (5-40) H 02/21/20 07:46 ALT 75 units/L (7-56) H 02/21/20 07:46 Alkaline Phosphatase 106 units/L (35-129) 02/21/20 07:46 Total Protein 8.6 g/dL (6.3-8.2) H 02/21/20 07:46 Albumin 3.1 g/dL (3.9-5) L 02/21/20 07:46 Albumin/Globulin Ratio 0.6 % 02/21/20 07:46 Urine Color Yellow (Yellow) 02/05/20 17:47 Urine Turbidity Clear (Clear) 02/05/20 17:47 Urine pH 5.0 (5.0-7.0) 02/05/20 17:47 Ur Specific Clarita 1.020 (1.003-1.030) 02/05/20 17:47 Urine Protein 100 mg/dl mg/dL (Negative) 02/05/20 17:47 Urine Glucose (UA) Neg mg/dL (Negative) 02/05/20 17:47 Urine Ketones 20 mg/dL (Negative) 02/05/20 17:47 Urine Blood Sm (Negative) 02/05/20 17:47 Urine Nitrite Neg (Negative) 02/05/20 17:47 Urine Bilirubin Neg (Negative) 02/05/20 17:47 Urine Urobilinogen 2.0 mg/dL (<2.0) 02/05/20 17:47 Ur Leukocyte Esterase Neg (Negative) 02/05/20 17:47 Urine WBC (Auto) 2.0 /HPF (0.0-6.0) 02/05/20 17:47 Urine RBC (Auto) 1.0 /HPF (0.0-6.0) 02/05/20 17:47 U Epithel Cells (Auto) < 1.0 /HPF (0-13.0) 02/05/20 17:47 Urine Mucus Few /HPF 02/05/20 17:47 Salicylates < 0.3 mg/dL (2.8-20.0) L 02/05/20 16:14 Urine Opiates Screen Presumptive negative 02/05/20 17:47 Urine Methadone Screen Presumptive negative 02/05/20 17:47 Acetaminophen 5.0 ug/mL (10.0-30.0) L 02/05/20 16:14 Ur Barbiturates Screen Presumptive negative 02/05/20 17:47 Ur Phencyclidine Scrn Presumptive negative 02/05/20 17:47 Ur Amphetamines Screen Presumptive negative 02/05/20 17:47 U Benzodiazepines Scrn Presumptive negative 02/05/20 17:47 Urine Cocaine Screen Presumptive negative 02/05/20 17:47 U Marijuana (THC) Screen Presumptive negative 02/05/20 17:47 Drugs of Abuse Note Disclamer 02/05/20 17:47 Plasma/Serum Alcohol < 0.01 % (0-0.07) 02/05/20 16:14 Microbiology: Microbiology 02/19/20 14:07 Peripheral/Venous Blood Culture - Preliminary NO GROWTH AFTER 24 HOURS 02/19/20 11:00 Peripheral/Venous Blood Culture - Preliminary NO GROWTH AFTER 24 HOURS 02/19/20 20:33 Urine,Clean Catch Urine Culture - Preliminary Pike/IV: Voiding Method Condom Catheter IV Catheter Type [Right Peripheral IV Antecubital] IV Catheter Type [Right Wrist] Peripheral IV IV Catheter Type [Left Forearm INT / Saline Lock ] IV Catheter Type [Right INT / Saline Lock Forearm] IV Catheter Type [Right Hand] Peripheral IV Active Medications - Current Medications Current Medications: Generic Name Dose Route Start Last Admin Trade Name Freq PRN Reason Stop Dose Admin Acetaminophen 650 mg 02/05/20 22:45 02/20/20 05:09 Tylenol PO 650 mg Q4H PRN Administration Pain MILD(1-3)/Fever >100.5/GAMBINO Aspirin 325 mg 02/08/20 18:00 02/20/20 10:30 Aspirin PO 325 mg QDAY MICHAEL Administration Azithromycin 500 mg 02/21/20 10:00 Zithromax PO QDAY MICHAEL Chlordiazepoxide HCl 25 mg 02/08/20 20:00 02/21/20 08:28 Librium PO Not Given TID MICHAEL Clopidogrel Bisulfate 75 mg 02/08/20 18:00 02/20/20 10:30 Plavix PO 75 mg QDAY MICHAEL Administration Famotidine 20 mg 02/07/20 22:00 02/20/20 21:03 Pepcid PO 20 mg BID MICHAEL Administration Fish Oil 2,000 mg 02/17/20 13:00 02/20/20 21:04 Fish Oil PO 2,000 mg BID MICHAEL Administration Folic Acid 1 mg 02/17/20 10:00 02/20/20 10:30 Folvite PO 1 mg QDAY MICHAEL Administration Ceftriaxone Sodium 1 gm in 50 mls @ 100 mls/hr 02/20/20 12:00 02/20/20 15:10 Rocephin/Ns 1 Gm/50 Ml IV 100 mls/hr Q24HR MICHAEL Administration Protocol Labetalol HCl 10 mg 02/05/20 20:28 02/18/20 20:44 Labetalol IV 10 mg Q3HR PRN Administration Increased Blood Pressure Lorazepam 2 mg 02/20/20 00:39 02/21/20 00:25 Ativan IV 2 mg Q1HR PRN Administration CIWA-Ar 8-15 Melatonin 5 mg 02/17/20 22:00 02/20/20 21:04 Melatonin PO 5 mg QHS MICHAEL Administration Metoclopramide HCl 10 mg 02/05/20 22:45 Reglan IV Q6H PRN Nausea And Vomiting Metoprolol Tartrate 25 mg 02/16/20 19:43 02/20/20 21:05 Metoprolol PO 25 mg BID MICHAEL Administration Miscellaneous Medication 1 tab 02/08/20 17:30 Emtricitabin/Tenofovir [Truvada 200-300 Mg] PO QDAY [facility] Miscellaneous Medication 1 each 02/08/20 22:00 Lopinavir/Ritonavir (Nf) PO BID MICHAEL Nicotine 21 mg 02/16/20 02:23 02/20/20 10:34 Habitrol TD 21 mg QDAY MICHAEL Administration Nifedipine 30 mg 02/16/20 22:00 02/20/20 21:04 Procardia Xl PO 30 mg Q12HR MICHAEL Administration Olanzapine 5 mg 02/17/20 22:00 02/20/20 21:03 Zyprexa PO 5 mg QHS MICHAEL Administration Ondansetron HCl 4 mg 02/05/20 22:45 02/10/20 01:28 Zofran IV 4 mg Q8H PRN Administration Nausea And Vomiting Oxycodone/Acetaminophen 1 tab 02/05/20 22:45 02/20/20 21:04 Percocet 5/325 PO 1 tab Q6H PRN Administration Pain, Moderate (4-6) Sodium Chloride 10 ml 02/06/20 10:00 02/20/20 21:05 Sodium Chloride Flush Syringe 10 Ml IV 10 ml BID MICHAEL Administration Sodium Chloride 10 ml 02/05/20 22:45 02/20/20 19:07 Sodium Chloride Flush Syringe 10 Ml IV 10 ml PRN PRN Administration LINE FLUSH Thiamine HCl 100 mg 02/17/20 10:00 02/20/20 10:31 Vitamin B-1 PO 100 mg QDAY MICHAEL Administration Zolpidem Tartrate 5 mg 02/17/20 22:00 02/20/20 21:03 Ambien PO 5 mg QHS MICHAEL Administration Nutrition/Malnutrition Assess - Dietary Evaluation Nutrition/Malnutrition Findings: Nutrition Notes Start: 02/12/20 11:26 Freq: Status: Active Protocol: Document 02/19/20 12:27 ISMAEL (Rec: 02/19/20 12:36 ISMAEL [id number]) Co-Sign 02/19/20 12:27 Nutrition Notes Initial or Follow up Reassessment Current Diagnosis Hypertension,Hyperlipidemia Other Pertinent Diagnosis ETOH withdrawals, HIV, foot fracture Current Diet Cardiac diet with Ensure Enlive BID Labs/Tests K 3.0 Pertinent Medications Thiamine Folic Acid Fish Oil Height 6 ft 1 in Weight 87.7 kg [place] Body Weight (kg) 83.63 BMI 25.4 Weight change and time frame Wt change noted. Pt edema improving. Weight Status Overweight Subjective/Other Information F/U for PO/ONS intakes. Pt reports consuming 50% meals and ONS. Pt was distressed at time of visit d/t RN stating he cannot get out of bed or drive his truck home. Percent of energy/protein needs met: 57%/76% (PO and ONS) Burn Absent Trauma Absent GI Symptoms None Usual Diet at Home Meals on Wheels Current % PO Fair (50-74%) Minimum of two criteria No physical signs of malnutrition #2 Nutrition Diagnosis Inadequate oral intake Diagnosis Progress(for reassessment Continues documentation) #1 Nutrition Diagnosis Food and nutrition-related knowledge deficit,Other: ( Specify in comment below) Diagnosis Progress(for reassessment Continues documentation) Is patient on ventilator? No Is Patient Ambulatory and/or Out of Bed No REE-([facility]-confined to bed) [phone] Calculation Used for Recommendations [facility] Additional Notes Pro: 70-88 g (0.8-1 g/kg) Fluid: 1ml/kcal Nutrition Intervention Change Diet Order: Continue Add Supplement/Snack (indicate name/kcal Ensure Enlive Daily /protein ) Provides kCal: 350 Provides Protein (gm) 20 Goal #1 Pt will meet at least 75% of energy and protein needs. Anticipated Discharge Needs: Cardiac diet (low sodium) Follow-Up By: 02/23/20 Additional Comments F/U for PO/ONS intakes
[2020-02-21] MEDS ORDERED: AZITHROMYCIN 250 MG TAB PO SCH (10:00)
[2020-02-21] MEDS: cefTRIAXone/NS 1 GM/50 ML 1 GM/50 ML BAG IV SCH (11:31)
[2020-02-21] MEDS: THIAMINE 100 MG TAB PO SCH (11:31)
[2020-02-21] MEDS: METOPROLOL TARTRATE 25 MG TAB PO SCH ×2 (11:31→21:01)
[2020-02-21] MEDS: CLOPIDOGREL 75 MG TAB PO SCH (11:31)
[2020-02-21] MEDS: FAMOTIDINE 20 MG TAB PO SCH ×2 (11:32→21:01)
[2020-02-21] MEDS: NIFEdipine XL 30 MG TAB PO SCH ×2 (11:32→21:01)
[2020-02-21] MEDS: OMEGA-3 FATTY ACIDS/FISH OIL 1 GRAM CAP PO SCH ×2 (11:32→21:00)
[2020-02-21] MEDS: NICOTINE 21 MG/24 HR PATCH TD SCH (11:32)
[2020-02-21] MEDS: FOLIC ACID 1 MG TAB PO SCH (11:32)
[2020-02-21] MEDS: ASPIRIN 325 MG TAB PO SCH (11:33)
[2020-02-21] MEDS: ACETAMINOPHEN 325 MG TAB PO PRN (11:42)
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
[2020-02-21] MEDS ORDERED: EMTRICITABINE 200 MG, TENOFOVIR 300 MG PO SCH (13:00)
[2020-02-21 15:55] LABS: C-Reactive Protein 5.3 mg/dL (0.00-1.30)
[2020-02-21] MEDS: TENOFOVIR 300 MG TAB PO SCH (16:11)
[2020-02-21] MEDS: EMTRICITABINE 200 MG CAP PO SCH (16:11)
[2020-02-21] MEDS: DOLUTEGRAVIR 50 MG TAB PO SCH (16:13)
[2020-02-21] MEDS: MELATONIN 5 MG TAB PO SCH (21:01)
[2020-02-21] MEDS: ENOXAPARIN 40 MG/0.4 ML INJ SUB-Q SCH (21:01)
[2020-02-21] MEDS: ZOLPIDEM 5 MG TAB PO SCH (21:02)
[2020-02-22] MEDS: chlordiazePOXIDE 25 MG CAP PO SCH ×3 (08:32→21:55)
--- NOTE | 2020-02-22 10:53 | Progress Note ---
Assessment and Plan Assessment and plan: --COVID-19 positive patient isolation precautions, COVID-19 infection -Obtain wound care consultation to evaluate left foot wounds No indication for remdesivir or dexamethasone as patient is not hypoxic -Continue Truvada and dolutegravir. -F/u HIV PCR and CD4 count -Continue Ceftriaxone for now -Monitor mentation consider further brain imaging if no better. --Febrile illness; afebrile this morning T-max last 24 hours; 100.5 F Follow-up urine cultures, blood cultures, Chest x-ray no acute abnormalities Antipyretics , empiric antibiotic Rocephin and Zithromax. ID consulted. --Acute toxic metabolic encephalopathy; Multifactorial, mainly alcohol-related, alcohol withdrawal symptoms Alcoholic encephalopathy, delirium, Off CIWA protocols Psych evaluation and recommendations appreciated Mild improvement of symptoms, continues to be agitated requiring either a sitter or restraints, CT head negative --Chronic alcohol use; Thiamine folic acid, DC IV fluids --Fracture metatarsal left foot closed; evaluated by Ortho No surgical intervention needed, supportive care --Hypertension urgency; present on admission Now moderate control, continue current antihypertensives and as needed medications --History of HIV AIDS; On antiretrovirals, continue current management ID consulted --Moderate malnutrition/hypoalbuminemia; Nutrition supplements, supportive care Consult dietitian --DVT prophylaxis; Lovenox --Restraint for safety --DC planning per case management We will closely monitor the patient and adjust the management as needed Plan of care reviewed with the patient's nurse, case management 02/10/2020. Continue CIWA protocol. Supportive care. 02/11/2020. Patient CIWA score is approximately 8. Patient still requiring restraints for agitation. Continue CIWA protocol 02/12/2020. Patient remains agitated requiring restraints. Continue CIWA protocol. PT evaluation. 02/13/2020. Physical therapy recommends rolling walker with home health PT. 02/14/2020. Nurse reports CIWA score of 10. Continue CIWA protocol. 02/15/20; patient remains confused, with alcohol withdrawal symptoms, on CIWA protocol 02/17/20; psych evaluation and recommendations noted and appreciated We will DC CIWA protocol, continue psych medications, Ativan as needed for agitation 02/18/2020; continue current management, discharge planning per case management 02/18; patient spiked fever of 102 F, cultures blood urine sent, chest x-ray requested 02/19; chest x-ray negative for acute abnormality, continues to have fever today 101.7 F Since patient has multiple risk factors like HIV, chronic alcohol use, we will rule out COVID-19 Placed isolation, Harry PCR sent, consulted ID 02/20; patient has low-grade fever, on empiric antibiotics, follow cultures, ID consulted Awaiting harry PCR test report, discussed with ID, restraint for safety, patient is transferred to MedSurg/Covid unit 02/22/2020; patient is more alert and awake today, ID evaluation noted and appreciated Continue current management History Interval history: I have seen and examined the patient at the bedside Strict contact isolation, PPE protocols observed Patient is more alert and awake today Responding appropriately Restraint for safety Vital signs noted Hospitalist Physical - Constitutional Vitals: Temp Pulse Resp BP Pulse Ox 98.6 F 70 16 144/86 98 02/22/20 04:37 02/22/20 04:37 02/22/20 04:37 02/22/20 04:37 02/22/20 04:37 General appearance: Present: mild distress, well-nourished, other (Patient is more alert, responding sometimes appropriately, agitated trying to get out of the bed) - EENT Eyes: Present: PERRL, EOM intact - Neck Neck: Present: supple, normal ROM - Respiratory Respiratory effort: normal Respiratory: bilateral: diminished, rhonchi, negative: rales, wheezing - Cardiovascular Rhythm: regular Heart Sounds: Present: S1 & S2 - Extremities Extremities: no ischemia, No edema - Abdominal General gastrointestinal: soft, non-tender, non-distended, normal bowel sounds - Integumentary Integumentary: Present: clear, warm - Psychiatric Psychiatric: appropriate mood/affect, other (Confused at times) - Neurologic Neurologic: moves all extremities Results - Labs CBC & Chem 7: 02/21/20 07:46 02/21/20 07:46 Labs: Laboratory Last Values WBC 5.7 K/mm3 (4.5-11.0) 02/21/20 07:46 RBC 5.36 M/mm3 (3.65-5.03) H 02/21/20 07:46 Hgb 12.9 gm/dl (11.8-15.2) 02/21/20 07:46 Hct 39.8 % (35.5-45.6) 02/21/20 07:46 MCV 74 fl (84-94) L 02/21/20 07:46 MCH 24 pg (28-32) L 02/21/20 07:46 MCHC 32 % (32-34) 02/21/20 07:46 RDW 21.8 % (13.2-15.2) H 02/21/20 07:46 Plt Count 227 K/mm3 (140-440) 02/21/20 07:46 Lymph % (Auto) 49.8 % (13.4-35.0) H 02/21/20 07:46 Douglas % (Auto) 9.8 % (0.0-7.3) H 02/21/20 07:46 Eos % (Auto) 0.1 % (0.0-4.3) 02/21/20 07:46 Baso % (Auto) 1.2 % (0.0-1.8) 02/21/20 07:46 Lymph # (Auto) 2.8 K/mm3 (1.2-5.4) 02/21/20 07:46 Douglas # (Auto) 0.6 K/mm3 (0.0-0.8) 02/21/20 07:46 Eos # (Auto) 0.0 K/mm3 (0.0-0.4) 02/21/20 07:46 Baso # (Auto) 0.1 K/mm3 (0.0-0.1) 02/21/20 07:46 Add Manual Diff Complete 02/05/20 16:14 Total Counted 100 02/05/20 16:14 Seg Neutrophils % 39.1 % (40.0-70.0) L 02/21/20 07:46 Seg Neuts % (Manual) 58.0 % (40.0-70.0) 02/05/20 16:14 Band Neutrophils % 0 % 02/05/20 16:14 Lymphocytes % (Manual) 33.0 % (13.4-35.0) 02/05/20 16:14 Reactive Lymphs % (Man) 0 % 02/05/20 16:14 Monocytes % (Manual) 8.0 % (0.0-7.3) H 02/05/20 16:14 Eosinophils % (Manual) 1.0 % (0.0-4.3) 02/05/20 16:14 Basophils % (Manual) 0 % (0.0-1.8) 02/05/20 16:14 Metamyelocytes % 0 % 02/05/20 16:14 Myelocytes % 0 % 02/05/20 16:14 Promyelocytes % 0 % 02/05/20 16:14 Blast Cells % 0 % 02/05/20 16:14 Nucleated RBC % Not Reportable 02/05/20 16:14 Seg Neutrophils # 2.2 K/mm3 (1.8-7.7) 02/21/20 07:46 Seg Neutrophils # Man 2.8 K/mm3 (1.8-7.7) 02/05/20 16:14 Band Neutrophils # 0.0 K/mm3 02/05/20 16:14 Lymphocytes # (Manual) 1.6 K/mm3 (1.2-5.4) 02/05/20 16:14 Abs React Lymphs (Man) 0.0 K/mm3 02/05/20 16:14 Monocytes # (Manual) 0.4 K/mm3 (0.0-0.8) 02/05/20 16:14 Eosinophils # (Manual) 0.0 K/mm3 (0.0-0.4) 02/05/20 16:14 Basophils # (Manual) 0.0 K/mm3 (0.0-0.1) 02/05/20 16:14 Metamyelocytes # 0.0 K/mm3 02/05/20 16:14 Myelocytes # 0.0 K/mm3 02/05/20 16:14 Promyelocytes # 0.0 K/mm3 02/05/20 16:14 Blast Cells # 0.0 K/mm3 02/05/20 16:14 WBC Morphology Not Reportable 02/05/20 16:14 Hypersegmented Neuts Not Reportable 02/05/20 16:14 Hyposegmented Neuts Not Reportable 02/05/20 16:14 Hypogranular Neuts Not Reportable 02/05/20 16:14 Smudge Cells Not Reportable 02/05/20 16:14 Toxic Granulation Not Reportable 02/05/20 16:14 Toxic Vacuolation Not Reportable 02/05/20 16:14 Dohle Bodies Not Reportable 02/05/20 16:14 Pelger-Huet Anomaly Not Reportable 02/05/20 16:14 Esperanza Rods Not Reportable 02/05/20 16:14 Platelet Estimate Not Reportable 02/05/20 16:14 Clumped Platelets Few 02/05/20 16:14 Plt Clumps, EDTA Not Reportable 02/05/20 16:14 Large Platelets Not Reportable 02/05/20 16:14 Giant Platelets Not Reportable 02/05/20 16:14 Platelet Satelliting Not Reportable 02/05/20 16:14 Plt Morphology Comment Not Reportable 02/05/20 16:14 RBC Morphology Not Reportable 02/05/20 16:14 Dimorphic RBCs Not Reportable 02/05/20 16:14 Polychromasia Not Reportable 02/05/20 16:14 Hypochromasia 1+ 02/05/20 16:14 Poikilocytosis Not Reportable 02/05/20 16:14 Anisocytosis 1+ 02/05/20 16:14 Microcytosis Few 02/05/20 16:14 Macrocytosis Not Reportable 02/05/20 16:14 Spherocytes Not Reportable 02/05/20 16:14 Pappenheimer Bodies Not Reportable 02/05/20 16:14 Sickle Cells Not Reportable 02/05/20 16:14 Target Cells Not Reportable 02/05/20 16:14 Tear Drop Cells Not Reportable 02/05/20 16:14 Ovalocytes Not Reportable 02/05/20 16:14 Helmet Cells Not Reportable 02/05/20 16:14 [place] Bodies Not Reportable 02/05/20 16:14 [place] Rings Not Reportable 02/05/20 16:14 Master Cells Not Reportable 02/05/20 16:14 Bite Cells Not Reportable 02/05/20 16:14 Crenated Cell Not Reportable 02/05/20 16:14 Elliptocytes Not Reportable 02/05/20 16:14 Acanthocytes (Spur) Not Reportable 02/05/20 16:14 Rouleaux Not Reportable 02/05/20 16:14 Hemoglobin C Crystals Not Reportable 02/05/20 16:14 Schistocytes Not Reportable 02/05/20 16:14 Malaria parasites Not Reportable 02/05/20 16:14 Bobby Bodies Not Reportable 02/05/20 16:14 Hem Pathologist Commnt No 02/05/20 16:14 D-Dimer 1093.83 ng/mlDDU (0-234) H 02/21/20 15:12 Sodium 138 mmol/L (137-145) 02/21/20 07:46 Potassium 3.6 mmol/L (3.6-5.0) 02/21/20 07:46 Chloride 106.0 mmol/L (98-107) 02/21/20 07:46 Carbon Dioxide 21 mmol/L (22-30) L 02/21/20 07:46 Anion Gap 15 mmol/L 02/21/20 07:46 BUN 15 mg/dL (9-20) 02/21/20 07:46 Creatinine 1.0 mg/dL (0.8-1.3) 02/21/20 07:46 Estimated GFR > 60 ml/min 02/21/20 07:46 BUN/Creatinine Ratio 15 % 02/21/20 07:46 Glucose 87 mg/dL (75-100) 02/21/20 07:46 POC Glucose 79 (70-105) 02/14/20 08:25 Hemoglobin A1c 5.4 % (4-6) 02/06/20 04:58 Calcium 9.5 mg/dL (8.4-10.2) 02/21/20 07:46 Phosphorus 3.30 mg/dL (2.5-4.5) 02/19/20 05:41 Magnesium 1.70 mg/dL (1.7-2.3) 02/19/20 05:41 Ferritin 320.1 ng/mL (30.0-300.0) H 02/21/20 15:12 Total Bilirubin 0.40 mg/dL (0.1-1.2) 02/21/20 07:46 Direct Bilirubin 0.3 mg/dL (0-0.2) H 02/05/20 17:51 Indirect Bilirubin 0.5 mg/dL 02/05/20 17:51 AST 85 units/L (5-40) H 02/21/20 07:46 ALT 75 units/L (7-56) H 02/21/20 07:46 Alkaline Phosphatase 106 units/L (35-129) 02/21/20 07:46 Lactate Dehydrogenase 241 units/L (91-180) H 02/21/20 15:12 C-Reactive Protein 5.30 mg/dL (0.00-1.30) H 02/21/20 15:12 Total Protein 8.6 g/dL (6.3-8.2) H 02/21/20 07:46 Albumin 3.1 g/dL (3.9-5) L 02/21/20 07:46 Albumin/Globulin Ratio 0.6 % 02/21/20 07:46 Urine Color Yellow (Yellow) 02/05/20 17:47 Urine Turbidity Clear (Clear) 02/05/20 17:47 Urine pH 5.0 (5.0-7.0) 02/05/20 17:47 Ur Specific [place] 1.020 (1.003-1.030) 02/05/20 17:47 Urine Protein 100 mg/dl mg/dL (Negative) 02/05/20 17:47 Urine Glucose (UA) Neg mg/dL (Negative) 02/05/20 17:47 Urine Ketones 20 mg/dL (Negative) 02/05/20 17:47 Urine Blood Sm (Negative) 02/05/20 17:47 Urine Nitrite Neg (Negative) 02/05/20 17:47 Urine Bilirubin Neg (Negative) 02/05/20 17:47 Urine Urobilinogen 2.0 mg/dL (<2.0) 02/05/20 17:47 Ur Leukocyte Esterase Neg (Negative) 02/05/20 17:47 Urine WBC (Auto) 2.0 /HPF (0.0-6.0) 02/05/20 17:47 Urine RBC (Auto) 1.0 /HPF (0.0-6.0) 02/05/20 17:47 U Epithel Cells (Auto) < 1.0 /HPF (0-13.0) 02/05/20 17:47 Urine Mucus Few /HPF 02/05/20 17:47 Salicylates < 0.3 mg/dL (2.8-20.0) L 02/05/20 16:14 Urine Opiates Screen Presumptive negative 02/05/20 17:47 Urine Methadone Screen Presumptive negative 02/05/20 17:47 Acetaminophen 5.0 ug/mL (10.0-30.0) L 02/05/20 16:14 Ur Barbiturates Screen Presumptive negative 02/05/20 17:47 Ur Phencyclidine Scrn Presumptive negative 02/05/20 17:47 Ur Amphetamines Screen Presumptive negative 02/05/20 17:47 U Benzodiazepines Scrn Presumptive negative 02/05/20 17:47 Urine Cocaine Screen Presumptive negative 02/05/20 17:47 U Marijuana (THC) Screen Presumptive negative 02/05/20 17:47 Drugs of Abuse Note Disclamer 02/05/20 17:47 Plasma/Serum Alcohol < 0.01 % (0-0.07) 02/05/20 16:14 Coronavirus (PCR) Positive (Negative) A 02/21/20 09:00 Microbiology: Microbiology 02/19/20 14:07 Peripheral/Venous Blood Culture - Preliminary NO GROWTH AFTER 48 HOURS 02/19/20 11:00 Peripheral/Venous Blood Culture - Preliminary NO GROWTH AFTER 48 HOURS 02/19/20 20:33 Urine,Clean Catch Urine Culture - Final [place]ike/IV: Voiding Method Condom Catheter IV Catheter Type [Right Peripheral IV Antecubital] IV Catheter Type [Right Wrist] Peripheral IV IV Catheter Type [Left Forearm INT / Saline Lock ] IV Catheter Type [Right INT / Saline Lock Forearm] IV Catheter Type [Right Hand] Peripheral IV Active Medications - Current Medications Current Medications: Generic Name Dose Route Start Last Admin Trade Name Freq PRN Reason Stop Dose Admin Acetaminophen 650 mg 02/05/20 22:45 02/21/20 11:42 Tylenol PO 650 mg Q4H PRN Administration Pain MILD(1-3)/Fever >100.5/GAMBINO Aspirin 325 mg 02/08/20 18:00 02/21/20 11:33 Aspirin PO 325 mg QDAY MICHAEL Administration Chlordiazepoxide HCl 25 mg 02/08/20 20:00 02/22/20 08:32 Librium PO Not Given TID MICHAEL Clopidogrel Bisulfate 75 mg 02/08/20 18:00 02/21/20 11:31 Plavix PO 75 mg QDAY MICHAEL Administration Emtricitabine 200 mg 02/21/20 13:00 02/21/20 16:11 Emtriva PO 200 mg QDAY MICHAEL Administration Enoxaparin Sodium 40 mg 02/21/20 22:00 02/21/20 21:01 Enoxaparin SUB-Q 40 mg QDAY@2200 MICHAEL Administration Protocol Famotidine 20 mg 02/07/20 22:00 02/21/20 21:01 Pepcid PO 20 mg BID MICHAEL Administration Fish Oil 2,000 mg 02/17/20 13:00 02/21/20 21:00 Fish Oil PO 2,000 mg BID MICHAEL Administration Folic Acid 1 mg 02/17/20 10:00 02/21/20 11:32 Folvite PO 1 mg QDAY MICHAEL Administration Ceftriaxone Sodium 1 gm in 50 mls @ 100 mls/hr 02/20/20 12:00 02/21/20 11:31 Rocephin/Ns 1 Gm/50 Ml IV 100 mls/hr Q24HR MICHAEL Administration Protocol Labetalol HCl 10 mg 02/05/20 20:28 02/18/20 20:44 Labetalol IV 10 mg Q3HR PRN Administration Increased Blood Pressure Lorazepam 2 mg 02/21/20 11:55 02/21/20 21:03 Ativan IV 2 mg Q4H PRN Administration Agitation Melatonin 5 mg 02/17/20 22:00 02/21/20 21:01 Melatonin PO 5 mg QHS MICHAEL Administration Metoclopramide HCl 10 mg 02/05/20 22:45 Reglan IV Q6H PRN Nausea And Vomiting Metoprolol Tartrate 25 mg 02/16/20 19:43 02/21/20 21:01 Metoprolol PO 25 mg BID MICHAEL Administration Nicotine 21 mg 02/16/20 02:23 02/21/20 11:32 Habitrol TD 21 mg QDAY MICHAEL Administration Nifedipine 30 mg 02/16/20 22:00 02/21/20 21:01 Procardia Xl PO 30 mg Q12HR MICHAEL Administration Olanzapine 5 mg 02/17/20 22:00 02/21/20 21:01 Zyprexa PO 5 mg QHS MICHAEL Administration Ondansetron HCl 4 mg 02/05/20 22:45 02/10/20 01:28 Zofran IV 4 mg Q8H PRN Administration Nausea And Vomiting Oxycodone/Acetaminophen 1 tab 02/05/20 22:45 02/20/20 21:04 Percocet 5/325 PO 1 tab Q6H PRN Administration Pain, Moderate (4-6) Sodium Chloride 10 ml 02/06/20 10:00 02/21/20 21:02 Sodium Chloride Flush Syringe 10 Ml IV 10 ml BID MICHAEL Administration Sodium Chloride 10 ml 02/05/20 22:45 02/20/20 19:07 Sodium Chloride Flush Syringe 10 Ml IV 10 ml PRN PRN Administration LINE FLUSH Tenofovir Disoproxil Fumarate 300 mg 02/21/20 13:00 02/21/20 16:11 Viread PO 300 mg QDAY MICHAEL Administration Thiamine HCl 100 mg 02/17/20 10:00 02/21/20 11:31 Vitamin B-1 PO 100 mg QDAY MICHAEL Administration Zolpidem Tartrate 5 mg 02/17/20 22:00 02/21/20 21:02 Ambien PO 5 mg QHS MICHAEL Administration Nutrition/Malnutrition Assess - Dietary Evaluation Nutrition/Malnutrition Findings: Nutrition Notes Start: 02/12/20 11:26 Freq: Status: Active Protocol: Document 02/19/20 12:27 ISMAEL (Rec: 02/19/20 12:36 ISMAEL [id number]) Co-Sign 02/19/20 12:27 LM Nutrition Notes Initial or Follow up Reassessment Current Diagnosis Hypertension,Hyperlipidemia Other Pertinent Diagnosis ETOH withdrawals, HIV, foot fracture Current Diet Cardiac diet with Ensure Enlive BID Labs/Tests K 3.0 Pertinent Medications Thiamine Folic Acid Fish Oil Height 6 ft 1 in Weight 87.7 kg [place] Body Weight (kg) 83.63 BMI 25.4 Weight change and time frame Wt change noted. Pt edema improving. Weight Status Overweight Subjective/Other Information F/U for PO/ONS intakes. Pt reports consuming 50% meals and ONS. Pt was distressed at time of visit d/t RN stating he cannot get out of bed or drive his truck home. Percent of energy/protein needs met: 57%/76% (PO and ONS) Burn Absent Trauma Absent GI Symptoms None Usual Diet at Home Meals on Wheels Current % PO Fair (50-74%) Minimum of two criteria No physical signs of malnutrition #2 Nutrition Diagnosis Inadequate oral intake Diagnosis Progress(for reassessment Continues documentation) #1 Nutrition Diagnosis Food and nutrition-related knowledge deficit,Other: ( Specify in comment below) Diagnosis Progress(for reassessment Continues documentation) Is patient on ventilator? No Is Patient Ambulatory and/or Out of Bed No REE-([facility] Jeor-confined to bed) 1830.548 Calculation Used for Recommendations [facility] Additional Notes Pro: 70-88 g (0.8-1 g/kg) Fluid: 1ml/kcal Nutrition Intervention Change Diet Order: Continue Add Supplement/Snack (indicate name/kcal Ensure Enlive Daily /protein ) Provides kCal: 350 Provides Protein (gm) 20 Goal #1 Pt will meet at least 75% of energy and protein needs. Anticipated Discharge Needs: Cardiac diet (low sodium) Follow-Up By: 02/23/20 Additional Comments F/U for PO/ONS intakes
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
--- NOTE | 2020-02-22 13:17 | Vascular Lab Report ---
DUPLEX DOPPLER LOWER EXTREMITY VEINS, BILATERAL INDICATION / CLINICAL INFORMATION: Elevated D-dimers/evaluate for DVT. TECHNIQUE: Duplex doppler imaging was performed through the veins of both lower extremities using venous abbey alise and other maneuvers. COMPARISON: None available. FINDINGS: RIGHT COMMON FEMORAL VEIN: Negative. RIGHT FEMORAL VEIN: Negative. RIGHT POPLITEAL VEIN: Negative. RIGHT CALF VEINS: Negative. LEFT COMMON FEMORAL VEIN: Negative. LEFT FEMORAL VEIN: Negative. LEFT POPLITEAL VEIN: Negative. LEFT CALF VEINS: Negative. ADDITIONAL FINDINGS: None. IMPRESSION: 1. No sonographic evidence for DVT in either lower extremity. Signer Name: Mynor Mirza MD Signed: 02/22/2020 1:13 PM Workstation Name: [id number]
[2020-02-22] MEDS: TENOFOVIR 300 MG TAB PO SCH (14:30)
[2020-02-22] MEDS: THIAMINE 100 MG TAB PO SCH (14:30)
[2020-02-22] MEDS: OMEGA-3 FATTY ACIDS/FISH OIL 1 GRAM CAP PO SCH ×2 (14:31→21:55)
[2020-02-22] MEDS: FOLIC ACID 1 MG TAB PO SCH (14:31)
[2020-02-22] MEDS: DOLUTEGRAVIR 50 MG TAB PO SCH (14:31)
[2020-02-22] MEDS: FAMOTIDINE 20 MG TAB PO SCH ×2 (14:31→21:55)
[2020-02-22] MEDS: NICOTINE 21 MG/24 HR PATCH TD SCH (14:32)
[2020-02-22] MEDS: ASPIRIN 325 MG TAB PO SCH (14:32)
[2020-02-22] MEDS: EMTRICITABINE 200 MG CAP PO SCH (14:32)
[2020-02-22] MEDS: CLOPIDOGREL 75 MG TAB PO SCH (14:33)
[2020-02-22] MEDS: NIFEdipine XL 30 MG TAB PO SCH ×2 (14:33→21:56)
[2020-02-22] MEDS: METOPROLOL TARTRATE 25 MG TAB PO SCH ×2 (14:33→21:55)
[2020-02-22] MEDS: cefTRIAXone/NS 1 GM/50 ML 1 GM/50 ML BAG IV SCH (14:38)
[2020-02-22] MEDS: LORazepam 2 MG/ML VIAL IV PRN (18:59)
[2020-02-22] MEDS: ENOXAPARIN 40 MG/0.4 ML INJ SUB-Q SCH (21:55)
[2020-02-22] MEDS: ZOLPIDEM 5 MG TAB PO SCH (21:55)
[2020-02-22] MEDS: MELATONIN 5 MG TAB PO SCH (21:56)
[2020-02-23] MEDS: chlordiazePOXIDE 25 MG CAP PO SCH ×3 (08:00→22:42)
[2020-02-23] MEDS: cefTRIAXone/NS 1 GM/50 ML 1 GM/50 ML BAG IV SCH (09:44)
[2020-02-23] MEDS: NICOTINE 21 MG/24 HR PATCH TD SCH (10:00)
[2020-02-23] MEDS: ASPIRIN 325 MG TAB PO SCH (10:00)
[2020-02-23] MEDS: METOPROLOL TARTRATE 25 MG TAB PO SCH ×2 (10:00→22:33)
[2020-02-23] MEDS: FAMOTIDINE 20 MG TAB PO SCH ×2 (10:00→22:33)
[2020-02-23] MEDS: DOLUTEGRAVIR 50 MG TAB PO SCH (10:00)
[2020-02-23] MEDS: FOLIC ACID 1 MG TAB PO SCH (10:01)
[2020-02-23] MEDS: OMEGA-3 FATTY ACIDS/FISH OIL 1 GRAM CAP PO SCH ×2 (10:01→22:33)
[2020-02-23] MEDS: EMTRICITABINE 200 MG CAP PO SCH (10:06)
[2020-02-23] MEDS: TENOFOVIR 300 MG TAB PO SCH (10:07)
[2020-02-23] MEDS: THIAMINE 100 MG TAB PO SCH (10:07)
[2020-02-23] MEDS: NIFEdipine XL 30 MG TAB PO SCH ×2 (10:08→22:32)
[2020-02-23] MEDS: CLOPIDOGREL 75 MG TAB PO SCH (10:09)
[2020-02-23] MEDS ORDERED: THIAMINE 100 MG TAB ONE (11:30)
[2020-02-23] MEDS ORDERED: CLOPIDOGREL 75 MG TAB ONE (11:30)
[2020-02-23] MEDS ORDERED: NICOTINE 21 MG/24 HR PATCH TD ONE (11:30)
[2020-02-23] MEDS ORDERED: cefTRIAXone/NS 1 GM/50 ML IVPB IV ONE (11:30)
[2020-02-23] MEDS ORDERED: METOPROLOL TARTRATE 25 MG TAB ONE (11:30)
[2020-02-23] MEDS ORDERED: NIFEdipine XL 30 MG TAB PO ONE (11:30)
[2020-02-23] MEDS ORDERED: ASPIRIN 325 MG TAB ONE (11:30)
[2020-02-23] MEDS ORDERED: FOLIC ACID 1 MG TAB ONE (11:30)
[2020-02-23] MEDS ORDERED: FAMOTIDINE 20 MG TAB ONE (11:30)
--- NOTE | 2020-02-23 19:54 | Progress Note ---
Assessment and Plan Assessment and plan: -COVID-19 positive patient isolation precautions, COVID-19 infection -Obtain wound care consultation to evaluate left foot wounds No indication for remdesivir or dexamethasone as patient is not hypoxic -Continue Truvada and dolutegravir. -F/u HIV PCR and CD4 count -Continue Ceftriaxone for now -Monitor mentation consider further brain imaging if no better. --Febrile illness; afebrile this morning T-max last 24 hours; 100.5 F Follow-up urine cultures, blood cultures, Chest x-ray no acute abnormalities Antipyretics , empiric antibiotic Rocephin and Zithromax. ID consulted. --Acute toxic metabolic encephalopathy; Multifactorial, mainly alcohol-related, alcohol withdrawal symptoms Alcoholic encephalopathy, delirium, Off CIWA protocols Psych evaluation and recommendations appreciated Mild improvement of symptoms, continues to be agitated requiring either a sitter or restraints, CT head negative --Chronic alcohol use; Thiamine folic acid, DC IV fluids --Fracture metatarsal left foot closed; evaluated by Ortho No surgical intervention needed, supportive care --Hypertension urgency; present on admission Now moderate control, continue current antihypertensives and as needed medications --History of HIV AIDS; On antiretrovirals, continue current management ID consulted --Moderate malnutrition/hypoalbuminemia; Nutrition supplements, supportive care Consult dietitian --DVT prophylaxis; Lovenox --Restraint for safety --DC planning per case management We will closely monitor the patient and adjust the management as needed Plan of care reviewed with the patient's nurse, case management 02/10/2020. Continue CIWA protocol. Supportive care. 02/11/2020. Patient CIWA score is approximately 8. Patient still requiring restraints for agitation. Continue CIWA protocol 02/12/2020. Patient remains agitated requiring restraints. Continue CIWA protocol. PT evaluation. 02/13/2020. Physical therapy recommends rolling walker with home health PT. 02/14/2020. Nurse reports CIWA score of 10. Continue CIWA protocol. 02/15/20; patient remains confused, with alcohol withdrawal symptoms, on CIWA protocol 02/17/20; psych evaluation and recommendations noted and appreciated We will DC CIWA protocol, continue psych medications, Ativan as needed for agitation 02/18/2020; continue current management, discharge planning per case management 02/18; patient spiked fever of 102 F, cultures blood urine sent, chest x-ray requested 02/19; chest x-ray negative for acute abnormality, continues to have fever today 101.7 F Since patient has multiple risk factors like HIV, chronic alcohol use, we will rule out COVID-19 Placed isolation, Harry PCR sent, consulted ID 02/20; patient has low-grade fever, on empiric antibiotics, follow cultures, ID consulted Awaiting harry PCR test report, discussed with ID, restraint for safety, patient is transferred to MedSurg/Covid unit 02/22/2020; patient is more alert and awake today, ID evaluation noted and appreciated Continue current management History Interval history: I seen and examined the patient at the bedside Isolation precautions PPE protocols observed Feels slightly better No new complaints Vital signs noted Hospitalist Physical - Constitutional Vitals: Temp Pulse Resp BP Pulse Ox 98.2 F 92 H 19 118/77 91 02/23/20 17:55 02/23/20 17:55 02/23/20 17:55 02/23/20 17:55 02/23/20 17:55 General appearance: Present: mild distress, well-nourished, other (Patient is more alert, responding sometimes appropriately, agitated trying to get out of the bed) - EENT Eyes: Present: PERRL, EOM intact - Neck Neck: Present: supple, normal ROM - Respiratory Respiratory effort: normal Respiratory: bilateral: diminished, negative: rales, rhonchi, wheezing - Cardiovascular Rhythm: regular Heart Sounds: Present: S1 & S2 - Extremities Extremities: no ischemia, No edema - Abdominal General gastrointestinal: soft, non-tender, non-distended, normal bowel sounds - Integumentary Integumentary: Present: clear, warm - Psychiatric Psychiatric: appropriate mood/affect, cooperative, other (Confused at times) - Neurologic Neurologic: moves all extremities Results - Labs CBC & Chem 7: 02/21/20 07:46 02/21/20 07:46 Labs: Laboratory Last Values WBC 5.7 K/mm3 (4.5-11.0) 02/21/20 07:46 RBC 5.36 M/mm3 (3.65-5.03) H 02/21/20 07:46 Hgb 12.9 gm/dl (11.8-15.2) 02/21/20 07:46 Hct 39.8 % (35.5-45.6) 02/21/20 07:46 MCV 74 fl (84-94) L 02/21/20 07:46 MCH 24 pg (28-32) L 02/21/20 07:46 MCHC 32 % (32-34) 02/21/20 07:46 RDW 21.8 % (13.2-15.2) H 02/21/20 07:46 Plt Count 227 K/mm3 (140-440) 02/21/20 07:46 Lymph % (Auto) 49.8 % (13.4-35.0) H 02/21/20 07:46 [place] % (Auto) 9.8 % (0.0-7.3) H 02/21/20 07:46 Eos % (Auto) 0.1 % (0.0-4.3) 02/21/20 07:46 Baso % (Auto) 1.2 % (0.0-1.8) 02/21/20 07:46 Lymph # (Auto) 2.8 K/mm3 (1.2-5.4) 02/21/20 07:46 [place] # (Auto) 0.6 K/mm3 (0.0-0.8) 02/21/20 07:46 Eos # (Auto) 0.0 K/mm3 (0.0-0.4) 02/21/20 07:46 Baso # (Auto) 0.1 K/mm3 (0.0-0.1) 02/21/20 07:46 Add Manual Diff Complete 02/05/20 16:14 Total Counted 100 02/05/20 16:14 Seg Neutrophils % 39.1 % (40.0-70.0) L 02/21/20 07:46 Seg Neuts % (Manual) 58.0 % (40.0-70.0) 02/05/20 16:14 Band Neutrophils % 0 % 02/05/20 16:14 Lymphocytes % (Manual) 33.0 % (13.4-35.0) 02/05/20 16:14 Reactive Lymphs % (Man) 0 % 02/05/20 16:14 Monocytes % (Manual) 8.0 % (0.0-7.3) H 02/05/20 16:14 Eosinophils % (Manual) 1.0 % (0.0-4.3) 02/05/20 16:14 Basophils % (Manual) 0 % (0.0-1.8) 02/05/20 16:14 Metamyelocytes % 0 % 02/05/20 16:14 Myelocytes % 0 % 02/05/20 16:14 Promyelocytes % 0 % 02/05/20 16:14 Blast Cells % 0 % 02/05/20 16:14 Nucleated RBC % Not Reportable 02/05/20 16:14 Seg Neutrophils # 2.2 K/mm3 (1.8-7.7) 02/21/20 07:46 Seg Neutrophils # Man 2.8 K/mm3 (1.8-7.7) 02/05/20 16:14 Band Neutrophils # 0.0 K/mm3 02/05/20 16:14 Lymphocytes # (Manual) 1.6 K/mm3 (1.2-5.4) 02/05/20 16:14 Abs React Lymphs (Man) 0.0 K/mm3 02/05/20 16:14 Monocytes # (Manual) 0.4 K/mm3 (0.0-0.8) 02/05/20 16:14 Eosinophils # (Manual) 0.0 K/mm3 (0.0-0.4) 02/05/20 16:14 Basophils # (Manual) 0.0 K/mm3 (0.0-0.1) 02/05/20 16:14 Metamyelocytes # 0.0 K/mm3 02/05/20 16:14 Myelocytes # 0.0 K/mm3 02/05/20 16:14 Promyelocytes # 0.0 K/mm3 02/05/20 16:14 Blast Cells # 0.0 K/mm3 02/05/20 16:14 WBC Morphology Not Reportable 02/05/20 16:14 Hypersegmented Neuts Not Reportable 02/05/20 16:14 Hyposegmented Neuts Not Reportable 02/05/20 16:14 Hypogranular Neuts Not Reportable 02/05/20 16:14 Smudge Cells Not Reportable 02/05/20 16:14 Toxic Granulation Not Reportable 02/05/20 16:14 Toxic Vacuolation Not Reportable 02/05/20 16:14 Dohle Bodies Not Reportable 02/05/20 16:14 Pelger-Huet Anomaly Not Reportable 02/05/20 16:14 Esperanza Rods Not Reportable 02/05/20 16:14 Platelet Estimate Not Reportable 02/05/20 16:14 Clumped Platelets Few 02/05/20 16:14 Plt Clumps, EDTA Not Reportable 02/05/20 16:14 Large Platelets Not Reportable 02/05/20 16:14 Giant Platelets Not Reportable 02/05/20 16:14 Platelet Satelliting Not Reportable 02/05/20 16:14 Plt Morphology Comment Not Reportable 02/05/20 16:14 RBC Morphology Not Reportable 02/05/20 16:14 Dimorphic RBCs Not Reportable 02/05/20 16:14 Polychromasia Not Reportable 02/05/20 16:14 Hypochromasia 1+ 02/05/20 16:14 Poikilocytosis Not Reportable 02/05/20 16:14 Anisocytosis 1+ 02/05/20 16:14 Microcytosis Few 02/05/20 16:14 Macrocytosis Not Reportable 02/05/20 16:14 Spherocytes Not Reportable 02/05/20 16:14 Pappenheimer Bodies Not Reportable 02/05/20 16:14 Sickle Cells Not Reportable 02/05/20 16:14 Target Cells Not Reportable 02/05/20 16:14 Tear Drop Cells Not Reportable 02/05/20 16:14 Ovalocytes Not Reportable 02/05/20 16:14 Helmet Cells Not Reportable 02/05/20 16:14 [place] Bodies Not Reportable 02/05/20 16:14 Kirksey Rings Not Reportable 02/05/20 16:14 Thelma Cells Not Reportable 02/05/20 16:14 Bite Cells Not Reportable 02/05/20 16:14 Crenated Cell Not Reportable 02/05/20 16:14 Elliptocytes Not Reportable 02/05/20 16:14 Acanthocytes (Spur) Not Reportable 02/05/20 16:14 Rouleaux Not Reportable 02/05/20 16:14 Hemoglobin C Crystals Not Reportable 02/05/20 16:14 Schistocytes Not Reportable 02/05/20 16:14 Malaria parasites Not Reportable 02/05/20 16:14 Bobby Bodies Not Reportable 02/05/20 16:14 Hem Pathologist Commnt No 02/05/20 16:14 D-Dimer 1093.83 ng/mlDDU (0-234) H 02/21/20 15:12 Sodium 138 mmol/L (137-145) 02/21/20 07:46 Potassium 3.6 mmol/L (3.6-5.0) 02/21/20 07:46 Chloride 106.0 mmol/L (98-107) 02/21/20 07:46 Carbon Dioxide 21 mmol/L (22-30) L 02/21/20 07:46 Anion Gap 15 mmol/L 02/21/20 07:46 BUN 15 mg/dL (9-20) 02/21/20 07:46 Creatinine 1.0 mg/dL (0.8-1.3) 02/21/20 07:46 Estimated GFR > 60 ml/min 02/21/20 07:46 BUN/Creatinine Ratio 15 % 02/21/20 07:46 Glucose 87 mg/dL (75-100) 02/21/20 07:46 POC Glucose 79 (70-105) 02/14/20 08:25 Hemoglobin A1c 5.4 % (4-6) 02/06/20 04:58 Calcium 9.5 mg/dL (8.4-10.2) 02/21/20 07:46 Phosphorus 3.30 mg/dL (2.5-4.5) 02/19/20 05:41 Magnesium 1.70 mg/dL (1.7-2.3) 02/19/20 05:41 Ferritin 320.1 ng/mL (30.0-300.0) H 02/21/20 15:12 Total Bilirubin 0.40 mg/dL (0.1-1.2) 02/21/20 07:46 Direct Bilirubin 0.3 mg/dL (0-0.2) H 02/05/20 17:51 Indirect Bilirubin 0.5 mg/dL 02/05/20 17:51 AST 85 units/L (5-40) H 02/21/20 07:46 ALT 75 units/L (7-56) H 02/21/20 07:46 Alkaline Phosphatase 106 units/L (35-129) 02/21/20 07:46 Lactate Dehydrogenase 241 units/L (91-180) H 02/21/20 15:12 C-Reactive Protein 5.30 mg/dL (0.00-1.30) H 02/21/20 15:12 Total Protein 8.6 g/dL (6.3-8.2) H 02/21/20 07:46 Albumin 3.1 g/dL (3.9-5) L 02/21/20 07:46 Albumin/Globulin Ratio 0.6 % 02/21/20 07:46 Urine Color Yellow (Yellow) 02/05/20 17:47 Urine Turbidity Clear (Clear) 02/05/20 17:47 Urine pH 5.0 (5.0-7.0) 02/05/20 17:47 Ur Specific [place] 1.020 (1.003-1.030) 02/05/20 17:47 Urine Protein 100 mg/dl mg/dL (Negative) 02/05/20 17:47 Urine Glucose (UA) Neg mg/dL (Negative) 02/05/20 17:47 Urine Ketones 20 mg/dL (Negative) 02/05/20 17:47 Urine Blood Sm (Negative) 02/05/20 17:47 Urine Nitrite Neg (Negative) 02/05/20 17:47 Urine Bilirubin Neg (Negative) 02/05/20 17:47 Urine Urobilinogen 2.0 mg/dL (<2.0) 02/05/20 17:47 Ur Leukocyte Esterase Neg (Negative) 02/05/20 17:47 Urine WBC (Auto) 2.0 /HPF (0.0-6.0) 02/05/20 17:47 Urine RBC (Auto) 1.0 /HPF (0.0-6.0) 02/05/20 17:47 U Epithel Cells (Auto) < 1.0 /HPF (0-13.0) 02/05/20 17:47 Urine Mucus Few /HPF 02/05/20 17:47 Salicylates < 0.3 mg/dL (2.8-20.0) L 02/05/20 16:14 Urine Opiates Screen Presumptive negative 02/05/20 17:47 Urine Methadone Screen Presumptive negative 02/05/20 17:47 Acetaminophen 5.0 ug/mL (10.0-30.0) L 02/05/20 16:14 Ur Barbiturates Screen Presumptive negative 02/05/20 17:47 Ur Phencyclidine Scrn Presumptive negative 02/05/20 17:47 Ur Amphetamines Screen Presumptive negative 02/05/20 17:47 U Benzodiazepines Scrn Presumptive negative 02/05/20 17:47 Urine Cocaine Screen Presumptive negative 02/05/20 17:47 U Marijuana (THC) Screen Presumptive negative 02/05/20 17:47 Drugs of Abuse Note Disclamer 02/05/20 17:47 Plasma/Serum Alcohol < 0.01 % (0-0.07) 02/05/20 16:14 Coronavirus (PCR) Positive (Negative) A 02/21/20 09:00 Microbiology: Microbiology 02/19/20 14:07 Peripheral/Venous Blood Culture - Preliminary NO GROWTH AFTER 4 DAYS [place]ike/IV: Voiding Method Incontinent IV Catheter Type [Right Peripheral IV Antecubital] IV Catheter Type [Right Wrist] Peripheral IV IV Catheter Type [Left Forearm INT / Saline Lock ] IV Catheter Type [Right INT / Saline Lock Forearm] IV Catheter Type [Right Hand] Peripheral IV Active Medications - Current Medications Current Medications: Generic Name Dose Route Start Last Admin Trade Name Freq PRN Reason Stop Dose Admin Acetaminophen 650 mg 02/05/20 22:45 02/21/20 11:42 Tylenol PO 650 mg Q4H PRN Administration Pain MILD(1-3)/Fever >100.5/GAMBINO Aspirin 325 mg 02/08/20 18:00 02/22/20 14:32 Aspirin PO Not Given QDAY [facility] Chlordiazepoxide HCl 25 mg 02/08/20 20:00 02/22/20 21:55 Librium PO 25 mg TID MICHAEL Administration Clopidogrel Bisulfate 75 mg 02/08/20 18:00 02/22/20 14:33 Plavix PO Not Given QDAY [facility] Emtricitabine 200 mg 02/21/20 13:00 02/22/20 14:32 Emtriva PO Not Given QDAY MICHAEL Enoxaparin Sodium 40 mg 02/21/20 22:00 02/22/20 21:55 Enoxaparin SUB-Q 40 mg QDAY@2200 MICHAEL Administration Protocol Famotidine 20 mg 02/07/20 22:00 02/22/20 21:55 Pepcid PO 20 mg BID MICHAEL Administration Fish Oil 2,000 mg 02/17/20 13:00 02/22/20 21:55 Fish Oil PO 2,000 mg BID MICHAEL Administration Folic Acid 1 mg 02/17/20 10:00 02/22/20 14:31 Folvite PO Not Given QDAY [facility] Ceftriaxone Sodium 1 gm in 50 mls @ 100 mls/hr 02/20/20 12:00 02/22/20 14:38 Rocephin/Ns 1 Gm/50 Ml IV 100 mls/hr Q24HR MICHAEL Administration Protocol Labetalol HCl 10 mg 02/05/20 20:28 02/18/20 20:44 Labetalol IV 10 mg Q3HR PRN Administration Increased Blood Pressure Lorazepam 2 mg 02/21/20 11:55 02/22/20 18:59 Ativan IV 2 mg Q4H PRN Administration Agitation Melatonin 5 mg 02/17/20 22:00 02/22/20 21:56 Melatonin PO Not Given QHS [facility] Metoclopramide HCl 10 mg 02/05/20 22:45 Reglan IV Q6H PRN Nausea And Vomiting Metoprolol Tartrate 25 mg 02/16/20 19:43 02/22/20 21:55 Metoprolol PO 25 mg BID MICHAEL Administration Nicotine 21 mg 02/16/20 02:23 02/22/20 14:32 Habitrol TD Not Given QDAY [facility] Nifedipine 30 mg 02/16/20 22:00 02/22/20 21:56 Procardia Xl PO 30 mg Q12HR MICHAEL Administration Olanzapine 5 mg 02/17/20 22:00 02/22/20 21:55 Zyprexa PO 5 mg QHS MICHAEL Administration Ondansetron HCl 4 mg 02/05/20 22:45 02/10/20 01:28 Zofran IV 4 mg Q8H PRN Administration Nausea And Vomiting Oxycodone/Acetaminophen 1 tab 02/05/20 22:45 02/20/20 21:04 Percocet 5/325 PO 1 tab Q6H PRN Administration Pain, Moderate (4-6) Sodium Chloride 10 ml 02/06/20 10:00 02/22/20 21:57 Sodium Chloride Flush Syringe 10 Ml IV 10 ml BID MICHAEL Administration Sodium Chloride 10 ml 02/05/20 22:45 02/20/20 19:07 Sodium Chloride Flush Syringe 10 Ml IV 10 ml PRN PRN Administration LINE FLUSH Tenofovir Disoproxil Fumarate 300 mg 02/21/20 13:00 02/22/20 14:30 Viread PO Not Given QDAY MICHAEL Thiamine HCl 100 mg 02/17/20 10:00 02/22/20 14:30 Vitamin B-1 PO Not Given QDAY [facility] Zolpidem Tartrate 5 mg 02/17/20 22:00 02/22/20 21:55 Ambien PO 5 mg QHS [facility] Administration Nutrition/Malnutrition Assess - Dietary Evaluation Nutrition/Malnutrition Findings: Nutrition Notes Start: 02/12/20 11:26 Freq: Status: Active Protocol: Document 02/19/20 12:27 ISMAEL (Rec: 02/19/20 12:36 BK [id number]) Co-Sign 02/19/20 12:27 LM Nutrition Notes Initial or Follow up Reassessment Current Diagnosis Hypertension,Hyperlipidemia Other Pertinent Diagnosis ETOH withdrawals, HIV, foot fracture Current Diet Cardiac diet with Ensure Enlive BID Labs/Tests K 3.0 Pertinent Medications Thiamine Folic Acid Fish Oil Height 6 ft 1 in Weight 87.7 kg [place] Body Weight (kg) 83.63 BMI 25.4 Weight change and time frame Wt change noted. Pt edema improving. Weight Status Overweight Subjective/Other Information F/U for PO/ONS intakes. Pt reports consuming 50% meals and ONS. Pt was distressed at time of visit d/t RN stating he cannot get out of bed or drive his truck home. Percent of energy/protein needs met: 57%/76% (PO and ONS) Burn Absent Trauma Absent GI Symptoms None Usual Diet at Home Meals on Wheels Current % PO Fair (50-74%) Minimum of two criteria No physical signs of malnutrition #2 Nutrition Diagnosis Inadequate oral intake Diagnosis Progress(for reassessment Continues documentation) #1 Nutrition Diagnosis Food and nutrition-related knowledge deficit,Other: ( Specify in comment below) Diagnosis Progress(for reassessment Continues documentation) Is patient on ventilator? No Is Patient Ambulatory and/or Out of Bed No REE-([place] Je[place]-confined to bed) [phone] Calculation Used for Recommendations [place] Additional Notes Pro: 70-88 g (0.8-1 g/kg) Fluid: 1ml/kcal Nutrition Intervention Change Diet Order: Continue Add Supplement/Snack (indicate name/kcal Ensure Enlive Daily /protein ) Provides kCal: 350 Provides Protein (gm) 20 Goal #1 Pt will meet at least 75% of energy and protein needs. Anticipated Discharge Needs: Cardiac diet (low sodium) Follow-Up By: 02/23/20 Additional Comments F/U for PO/ONS intakes
[2020-02-23] MEDS: ZOLPIDEM 5 MG TAB PO SCH (22:33)
[2020-02-23] MEDS: ENOXAPARIN 40 MG/0.4 ML INJ SUB-Q SCH (22:34)
[2020-02-23] MEDS: MELATONIN 5 MG TAB PO SCH (22:42)
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
[2020-02-24] MEDS: cefTRIAXone/NS 1 GM/50 ML 1 GM/50 ML BAG IV SCH (10:41)
[2020-02-24] MEDS: METOPROLOL TARTRATE 25 MG TAB PO SCH ×2 (10:42→22:11)
[2020-02-24] MEDS: FOLIC ACID 1 MG TAB PO SCH (10:43)
[2020-02-24] MEDS: OMEGA-3 FATTY ACIDS/FISH OIL 1 GRAM CAP PO SCH ×2 (10:43→22:10)
[2020-02-24] MEDS: ASPIRIN 325 MG TAB PO SCH (10:43)
[2020-02-24] MEDS: FAMOTIDINE 20 MG TAB PO SCH ×2 (10:45→22:09)
[2020-02-24] MEDS: NICOTINE 21 MG/24 HR PATCH TD SCH (10:45)
[2020-02-24] MEDS: TENOFOVIR 300 MG TAB PO SCH (10:45)
[2020-02-24] MEDS: NIFEdipine XL 30 MG TAB PO SCH ×2 (10:46→22:11)
[2020-02-24] MEDS: CLOPIDOGREL 75 MG TAB PO SCH (10:46)
[2020-02-24] MEDS: EMTRICITABINE 200 MG CAP PO SCH (10:47)
[2020-02-24] MEDS: dexAMETHasone 4 MG/ML VIAL IV SCH (11:03)
[2020-02-24 12:09] LABS: Alanine Aminotransferase 60 units/L (7-56); Albumin 3.2 g/dL (3.9-5); BUN/Creatinine Ratio 18; Blood Urea Nitrogen 22 mg/dL (9-20); Calcium 9.6 mg/dL (8.4-10.2); Hemolysis Index 4
--- NOTE | 2020-02-24 19:10 | Progress Note ---
Assessment and Plan Assessment and plan: --COVID-19 test positive; 02/21/2020 Contact and droplet isolation precautions, --Covid positive patient ; no indication for remdesivir dexamethasone started today 02/24/2020 ID following, follow COVID-19 protocols --HIV/AIDS Continue Truvada and dolutegravir. F/u HIV PCR and CD4 count Continue Ceftriaxone for now Monitor mentation consider further brain imaging if no better. --Left foot wounds; wound care consulted --Febrile illness; afebrile today Follow-up urine cultures, blood cultures, Chest x-ray no acute abnormalities --Acute toxic metabolic encephalopathy; Alcohol withdrawal symptoms present on admission , now off CIWA protocol Psych evaluated, on Zyprexa Mild improvement of symptoms, continues to be agitated CT head negative,Consult neurology, possible MRI --Chronic alcohol use; Thiamine folic acid, DC IV fluids --Fracture metatarsal left foot closed; evaluated by Ortho No surgical intervention needed, supportive care --Hypertension urgency; present on admission Now well controlled ,continue current antihypertensives And as needed medications --Moderate malnutrition/hypoalbuminemia; Nutrition supplements, supportive care Consult dietitian --DVT prophylaxis;Lovenox --Restraint for safety --DC planning per case management We will closely monitor the patient and adjust the management as needed Plan of care reviewed with the patient's nurse, case management 02/10/2020. Continue CIWA protocol. Supportive care. 02/11/2020. Patient CIWA score is approximately 8. Patient still requiring restraints for agitation. Continue CIWA protocol 02/12/2020. Patient remains agitated requiring restraints. Continue CIWA protocol. PT evaluation. 02/13/2020. Physical therapy recommends rolling walker with home health PT. 02/14/2020. Nurse reports CIWA score of 10. Continue CIWA protocol. 02/15/20; patient remains confused, with alcohol withdrawal symptoms, on CIWA protocol 02/17/20; psych evaluation and recommendations noted and appreciated We will DC CIWA protocol, continue psych medications, Ativan as needed for agitation 02/18/2020; continue current management, discharge planning per case management 02/18; patient spiked fever of 102 F, cultures blood urine sent, chest x-ray requested 02/19; chest x-ray negative for acute abnormality, continues to have fever today 101.7 F Since patient has multiple risk factors like HIV, chronic alcohol use, we will rule out COVID-19 Placed isolation, Harry PCR sent, consulted ID 02/20; patient has low-grade fever, on empiric antibiotics, follow cultures, ID consulted Awaiting harry PCR test report, discussed with ID, restraint for safety, patient is transferred to [facility]/Covid unit 02/22/2020; COVID-19 test positive patient is more alert and awake today, ID evaluation noted and appreciated 02/23; wound care consulted, worsening lethargy ,consult neurologist, possible MRI if indicated History Interval history: I have seen and examined the patient at the bedside today Isolation precautions and strict PPE protocols followed Patient's chart and medications reviewed Patient is confused lethargic Responds to simple questions intermittently Vital signs noted Hospitalist Physical - Constitutional Vitals: Temp Pulse Resp BP Pulse Ox 98.9 F 85 22 132/80 94 02/24/20 17:59 02/24/20 17:59 02/24/20 17:59 02/24/20 17:59 02/24/20 17:59 General appearance: Present: mild distress, well-nourished, other (Patient is lethargic, responds appropriately intermittently) - EENT Eyes: Present: PERRL, EOM intact - Neck Neck: Present: supple, normal ROM - Respiratory Respiratory effort: normal Respiratory: bilateral: diminished, rhonchi, negative: rales, wheezing - Cardiovascular Rhythm: regular Heart Sounds: Present: S1 & S2 - Extremities Extremities: no ischemia, abnormal (Left foot wounds) - Abdominal General gastrointestinal: soft, non-tender, non-distended - Integumentary Integumentary: Present: clear, warm - Psychiatric Psychiatric: other (Lethargy) - Neurologic Neurologic: moves all extremities (Confused) Results - Labs CBC & Chem 7: 02/21/20 07:46 02/24/20 11:14 Labs: Laboratory Last Values WBC 5.7 K/mm3 (4.5-11.0) 02/21/20 07:46 RBC 5.36 M/mm3 (3.65-5.03) H 02/21/20 07:46 Hgb 12.9 gm/dl (11.8-15.2) 02/21/20 07:46 Hct 39.8 % (35.5-45.6) 02/21/20 07:46 MCV 74 fl (84-94) L 02/21/20 07:46 MCH 24 pg (28-32) L 02/21/20 07:46 MCHC 32 % (32-34) 02/21/20 07:46 RDW 21.8 % (13.2-15.2) H 02/21/20 07:46 Plt Count 227 K/mm3 (140-440) 02/21/20 07:46 Lymph % (Auto) 49.8 % (13.4-35.0) H 02/21/20 07:46 [place] % (Auto) 9.8 % (0.0-7.3) H 02/21/20 07:46 Eos % (Auto) 0.1 % (0.0-4.3) 02/21/20 07:46 Baso % (Auto) 1.2 % (0.0-1.8) 02/21/20 07:46 Lymph # (Auto) 2.8 K/mm3 (1.2-5.4) 02/21/20 07:46 [place] # (Auto) 0.6 K/mm3 (0.0-0.8) 02/21/20 07:46 Eos # (Auto) 0.0 K/mm3 (0.0-0.4) 02/21/20 07:46 Baso # (Auto) 0.1 K/mm3 (0.0-0.1) 02/21/20 07:46 Add Manual Diff Complete 02/05/20 16:14 Total Counted 100 02/05/20 16:14 Seg Neutrophils % 39.1 % (40.0-70.0) L 02/21/20 07:46 Seg Neuts % (Manual) 58.0 % (40.0-70.0) 02/05/20 16:14 Band Neutrophils % 0 % 02/05/20 16:14 Lymphocytes % (Manual) 33.0 % (13.4-35.0) 02/05/20 16:14 Reactive Lymphs % (Man) 0 % 02/05/20 16:14 Monocytes % (Manual) 8.0 % (0.0-7.3) H 02/05/20 16:14 Eosinophils % (Manual) 1.0 % (0.0-4.3) 02/05/20 16:14 Basophils % (Manual) 0 % (0.0-1.8) 02/05/20 16:14 Metamyelocytes % 0 % 02/05/20 16:14 Myelocytes % 0 % 02/05/20 16:14 Promyelocytes % 0 % 02/05/20 16:14 Blast Cells % 0 % 02/05/20 16:14 Nucleated RBC % Not Reportable 02/05/20 16:14 Seg Neutrophils # 2.2 K/mm3 (1.8-7.7) 02/21/20 07:46 Seg Neutrophils # Man 2.8 K/mm3 (1.8-7.7) 02/05/20 16:14 Band Neutrophils # 0.0 K/mm3 02/05/20 16:14 Lymphocytes # (Manual) 1.6 K/mm3 (1.2-5.4) 02/05/20 16:14 Abs React Lymphs (Man) 0.0 K/mm3 02/05/20 16:14 Monocytes # (Manual) 0.4 K/mm3 (0.0-0.8) 02/05/20 16:14 Eosinophils # (Manual) 0.0 K/mm3 (0.0-0.4) 02/05/20 16:14 Basophils # (Manual) 0.0 K/mm3 (0.0-0.1) 02/05/20 16:14 Metamyelocytes # 0.0 K/mm3 02/05/20 16:14 Myelocytes # 0.0 K/mm3 02/05/20 16:14 Promyelocytes # 0.0 K/mm3 02/05/20 16:14 Blast Cells # 0.0 K/mm3 02/05/20 16:14 WBC Morphology Not Reportable 02/05/20 16:14 Hypersegmented Neuts Not Reportable 02/05/20 16:14 Hyposegmented Neuts Not Reportable 02/05/20 16:14 Hypogranular Neuts Not Reportable 02/05/20 16:14 Smudge Cells Not Reportable 02/05/20 16:14 Toxic Granulation Not Reportable 02/05/20 16:14 Toxic Vacuolation Not Reportable 02/05/20 16:14 Dohle Bodies Not Reportable 02/05/20 16:14 Pelger-Huet Anomaly Not Reportable 02/05/20 16:14 Esperanza Rods Not Reportable 02/05/20 16:14 Platelet Estimate Not Reportable 02/05/20 16:14 Clumped Platelets Few 02/05/20 16:14 Plt Clumps, EDTA Not Reportable 02/05/20 16:14 Large Platelets Not Reportable 02/05/20 16:14 Giant Platelets Not Reportable 02/05/20 16:14 Platelet Satelliting Not Reportable 02/05/20 16:14 Plt Morphology Comment Not Reportable 02/05/20 16:14 RBC Morphology Not Reportable 02/05/20 16:14 Dimorphic RBCs Not Reportable 02/05/20 16:14 Polychromasia Not Reportable 02/05/20 16:14 Hypochromasia 1+ 02/05/20 16:14 Poikilocytosis Not Reportable 02/05/20 16:14 Anisocytosis 1+ 02/05/20 16:14 Microcytosis Few 02/05/20 16:14 Macrocytosis Not Reportable 02/05/20 16:14 Spherocytes Not Reportable 02/05/20 16:14 Pappenheimer Bodies Not Reportable 02/05/20 16:14 Sickle Cells Not Reportable 02/05/20 16:14 Target Cells Not Reportable 02/05/20 16:14 Tear Drop Cells Not Reportable 02/05/20 16:14 Ovalocytes Not Reportable 02/05/20 16:14 Helmet Cells Not Reportable 02/05/20 16:14 Sargent-[place] Bodies Not Reportable 02/05/20 16:14 [place] Rings Not Reportable 02/05/20 16:14 [place] Cells Not Reportable 02/05/20 16:14 Bite Cells Not Reportable 02/05/20 16:14 Crenated Cell Not Reportable 02/05/20 16:14 Elliptocytes Not Reportable 02/05/20 16:14 Acanthocytes (Spur) Not Reportable 02/05/20 16:14 Rouleaux Not Reportable 02/05/20 16:14 Hemoglobin C Crystals Not Reportable 02/05/20 16:14 Schistocytes Not Reportable 02/05/20 16:14 Malaria parasites Not Reportable 02/05/20 16:14 Bobby Bodies Not Reportable 02/05/20 16:14 Hem Pathologist Commnt No 02/05/20 16:14 D-Dimer 545.57 ng/mlDDU (0-234) H 02/24/20 11:14 Sodium 142 mmol/L (137-145) 02/24/20 11:14 Potassium 3.5 mmol/L (3.6-5.0) L 02/24/20 11:14 Chloride 107.4 mmol/L (98-107) H 02/24/20 11:14 Carbon Dioxide 22 mmol/L (22-30) 02/24/20 11:14 Anion Gap 16 mmol/L 02/24/20 11:14 BUN 22 mg/dL (9-20) H 02/24/20 11:14 Creatinine 1.2 mg/dL (0.8-1.3) 02/24/20 11:14 Estimated GFR > 60 ml/min 02/24/20 11:14 BUN/Creatinine Ratio 18 % 02/24/20 11:14 Glucose 94 mg/dL (75-100) 02/24/20 11:14 POC Glucose 79 (70-105) 02/14/20 08:25 Hemoglobin A1c 5.4 % (4-6) 02/06/20 04:58 Calcium 9.6 mg/dL (8.4-10.2) 02/24/20 11:14 Phosphorus 3.30 mg/dL (2.5-4.5) 02/19/20 05:41 Magnesium 1.70 mg/dL (1.7-2.3) 02/19/20 05:41 Ferritin 367.4 ng/mL (30.0-300.0) H 02/24/20 11:14 Total Bilirubin 0.50 mg/dL (0.1-1.2) 02/24/20 11:14 Direct Bilirubin 0.3 mg/dL (0-0.2) H 02/05/20 17:51 Indirect Bilirubin 0.5 mg/dL 02/05/20 17:51 AST 70 units/L (5-40) H 02/24/20 11:14 ALT 60 units/L (7-56) H 02/24/20 11:14 Alkaline Phosphatase 101 units/L (35-129) 02/24/20 11:14 Lactate Dehydrogenase 252 units/L (91-180) H 02/24/20 11:14 C-Reactive Protein 2.90 mg/dL (0.00-1.30) H 02/24/20 11:14 Total Protein 8.9 g/dL (6.3-8.2) H 02/24/20 11:14 Albumin 3.2 g/dL (3.9-5) L 02/24/20 11:14 Albumin/Globulin Ratio 0.6 % 02/24/20 11:14 Urine Color Yellow (Yellow) 02/05/20 17:47 Urine Turbidity Clear (Clear) 02/05/20 17:47 Urine pH 5.0 (5.0-7.0) 02/05/20 17:47 Ur Specific [place] 1.020 (1.003-1.030) 02/05/20 17:47 Urine Protein 100 mg/dl mg/dL (Negative) 02/05/20 17:47 Urine Glucose (UA) Neg mg/dL (Negative) 02/05/20 17:47 Urine Ketones 20 mg/dL (Negative) 02/05/20 17:47 Urine Blood Sm (Negative) 02/05/20 17:47 Urine Nitrite Neg (Negative) 02/05/20 17:47 Urine Bilirubin Neg (Negative) 02/05/20 17:47 Urine Urobilinogen 2.0 mg/dL (<2.0) 02/05/20 17:47 Ur Leukocyte Esterase Neg (Negative) 02/05/20 17:47 Urine WBC (Auto) 2.0 /HPF (0.0-6.0) 02/05/20 17:47 Urine RBC (Auto) 1.0 /HPF (0.0-6.0) 02/05/20 17:47 U Epithel Cells (Auto) < 1.0 /HPF (0-13.0) 02/05/20 17:47 Urine Mucus Few /HPF 02/05/20 17:47 Salicylates < 0.3 mg/dL (2.8-20.0) L 02/05/20 16:14 Urine Opiates Screen Presumptive negative 02/05/20 17:47 Urine Methadone Screen Presumptive negative 02/05/20 17:47 Acetaminophen 5.0 ug/mL (10.0-30.0) L 02/05/20 16:14 Ur Barbiturates Screen Presumptive negative 02/05/20 17:47 Ur Phencyclidine Scrn Presumptive negative 02/05/20 17:47 Ur Amphetamines Screen Presumptive negative 02/05/20 17:47 U Benzodiazepines Scrn Presumptive negative 02/05/20 17:47 Urine Cocaine Screen Presumptive negative 02/05/20 17:47 U Marijuana (THC) Screen Presumptive negative 02/05/20 17:47 Drugs of Abuse Note Disclamer 02/05/20 17:47 Plasma/Serum Alcohol < 0.01 % (0-0.07) 02/05/20 16:14 Coronavirus (PCR) Positive (Negative) A 02/21/20 09:00 Microbiology: Microbiology 02/19/20 14:07 Peripheral/Venous Blood Culture - Final NO GROWTH AFTER 5 DAYS 02/19/20 11:00 Peripheral/Venous Blood Culture - Final NO GROWTH AFTER 5 DAYS Pike/IV: Voiding Method Condom Catheter IV Catheter Type [Right Peripheral IV Antecubital] IV Catheter Type [Right Wrist] Peripheral IV IV Catheter Type [Left Forearm INT / Saline Lock ] IV Catheter Type [Right INT / Saline Lock Forearm] IV Catheter Type [Right Hand] Peripheral IV Active Medications - Current Medications Current Medications: Generic Name Dose Route Start Last Admin Trade Name Freq PRN Reason Stop Dose Admin Acetaminophen 650 mg 02/05/20 22:45 02/21/20 11:42 Tylenol PO 650 mg Q4H PRN Administration Pain MILD(1-3)/Fever >100.5/GAMBINO Aspirin 325 mg 02/08/20 18:00 02/24/20 10:43 Aspirin PO 325 mg QDAY MICHAEL Administration Chlordiazepoxide HCl 25 mg 02/08/20 20:00 02/23/20 22:42 Librium PO 25 mg TID MICHAEL Administration Clopidogrel Bisulfate 75 mg 02/08/20 18:00 02/24/20 10:46 Plavix PO 75 mg QDAY MICHAEL Administration Dexamethasone 6 mg 02/24/20 11:00 02/24/20 11:03 Decadron IV 03/04/20 10:01 6 mg Q24HR MICHAEL Administration Emtricitabine 200 mg 02/21/20 13:00 02/24/20 10:47 Emtriva PO 200 mg QDAY MICHAEL Administration Enoxaparin Sodium 40 mg 02/21/20 22:00 02/23/20 22:34 Enoxaparin SUB-Q 40 mg QDAY@2200 MICHAEL Administration Protocol Famotidine 20 mg 02/07/20 22:00 02/24/20 10:45 Pepcid PO 20 mg BID MICHAEL Administration Fish Oil 2,000 mg 02/17/20 13:00 02/24/20 10:43 Fish Oil PO 2,000 mg BID MICHAEL Administration Folic Acid 1 mg 02/17/20 10:00 02/24/20 10:43 Folvite PO 1 mg QDAY MICHAEL Administration Labetalol HCl 10 mg 02/05/20 20:28 02/18/20 20:44 Labetalol IV 10 mg Q3HR PRN Administration Increased Blood Pressure Lorazepam 2 mg 02/21/20 11:55 02/22/20 18:59 Ativan IV 2 mg Q4H PRN Administration Agitation Melatonin 5 mg 02/17/20 22:00 02/23/20 22:42 Melatonin PO 5 mg QHS MICHAEL Administration Metoclopramide HCl 10 mg 02/05/20 22:45 Reglan IV Q6H PRN Nausea And Vomiting Metoprolol Tartrate 25 mg 02/16/20 19:43 02/24/20 10:42 Metoprolol PO 25 mg BID MICHAEL Administration Nicotine 21 mg 02/16/20 02:23 02/24/20 10:45 Habitrol TD 21 mg QDAY MICHAEL Administration Nifedipine 30 mg 02/16/20 22:00 02/24/20 10:46 Procardia Xl PO 30 mg Q12HR MICHAEL Administration Olanzapine 5 mg 02/17/20 22:00 02/23/20 22:32 Zyprexa PO 5 mg QHS MICHAEL Administration Ondansetron HCl 4 mg 02/05/20 22:45 02/10/20 01:28 Zofran IV 4 mg Q8H PRN Administration Nausea And Vomiting Oxycodone/Acetaminophen 1 tab 02/05/20 22:45 02/20/20 21:04 Percocet 5/325 PO 1 tab Q6H PRN Administration Pain, Moderate (4-6) Sodium Chloride 10 ml 02/06/20 10:00 02/23/20 22:33 Sodium Chloride Flush Syringe 10 Ml IV 10 ml BID MICHAEL Administration Sodium Chloride 10 ml 02/05/20 22:45 02/20/20 19:07 Sodium Chloride Flush Syringe 10 Ml IV 10 ml PRN PRN Administration LINE FLUSH Tenofovir Disoproxil Fumarate 300 mg 02/21/20 13:00 02/24/20 10:45 Viread PO 300 mg QDAY MICHAEL Administration Thiamine HCl 100 mg 02/17/20 10:00 02/23/20 10:07 Vitamin B-1 PO Not Given QDAY [facility] Zolpidem Tartrate 5 mg 02/17/20 22:00 02/23/20 22:33 Ambien PO 5 mg QHS MICHAEL Administration Nutrition/Malnutrition Assess - Dietary Evaluation Nutrition/Malnutrition Findings: Nutrition Notes Start: 02/12/20 11:26 Freq: Status: Active Protocol: Document 02/24/20 13:12 MARCY (Rec: 02/24/20 13:19 MARCY [id number]) Co-Sign 02/24/20 13:12 LM Nutrition Notes Initial or Follow up Reassessment Current Diagnosis Hypertension,Hyperlipidemia Other Pertinent Diagnosis ETOH withdrawals, HIV, foot fracture Current Diet Cardiac Labs/Tests Reviewed Pertinent Medications Thiamine Folic Acid Fish Oil Height 6 ft 1 in Weight 85 kg [place] Body Weight (kg) 83.63 BMI 24.7 Weight Status Appropriate Subjective/Other Information F/u intakes. Per RN, pt's intake very poor. Pt restraints lifted for eating. Percent of energy/protein needs met: 21%/30% Burn Absent Trauma Absent GI Symptoms None Usual Diet at Home Meals on Wheels Current % PO Negligible Minimum of two criteria No physical signs of malnutrition #2 Nutrition Diagnosis Inadequate oral intake As Evidenced by Signs and Symptoms RN reported pt consuming 0-25% of meals and does not always drink the ONS. Diagnosis Progress(for reassessment Worsened documentation) #1 Nutrition Diagnosis Food and nutrition-related knowledge deficit,Other: ( Specify in comment below) Diagnosis Progress(for reassessment Continues documentation) Is patient on ventilator? No Is Patient Ambulatory and/or Out of Bed No REE-([place]-St. Jeor-confined to bed) 2084.012 Calculation Used for Recommendations [place]-St Jeor Additional Notes Pro: 70-88 g (0.8-1 g/kg) Fluid: 1ml/kcal Nutrition Intervention Change Diet Order: Recommend regular diet to promote intakes Add Supplement/Snack (indicate name/kcal Ensure Enlive Daily /protein ) Provides kCal: 350 Provides Protein (gm) 20 Goal #1 Pt will meet at least 75% of energy and protein needs. Anticipated Discharge Needs: Heart healthy diet Follow-Up By: 02/26/20 Additional Comments F/u intakes
[2020-02-24] MEDS: ZOLPIDEM 5 MG TAB PO SCH (22:11)
[2020-02-24] MEDS: MELATONIN 5 MG TAB PO SCH (22:11)
[2020-02-24] MEDS: ENOXAPARIN 40 MG/0.4 ML INJ SUB-Q SCH (22:11)
[2020-02-25] MEDS: TENOFOVIR 300 MG TAB PO SCH (10:11)
[2020-02-25] MEDS: EMTRICITABINE 200 MG CAP PO SCH (10:11)
[2020-02-25] MEDS: FAMOTIDINE 20 MG TAB PO SCH ×2 (10:11→22:05)
[2020-02-25] MEDS: DOLUTEGRAVIR 50 MG TAB PO SCH (10:11)
[2020-02-25] MEDS: dexAMETHasone 4 MG/ML VIAL IV SCH (10:11)
[2020-02-25] MEDS: CLOPIDOGREL 75 MG TAB PO SCH (10:12)
[2020-02-25] MEDS: NIFEdipine XL 30 MG TAB PO SCH ×2 (10:12→22:05)
[2020-02-25] MEDS: METOPROLOL TARTRATE 25 MG TAB PO SCH ×2 (10:12→22:05)
[2020-02-25] MEDS: THIAMINE 100 MG TAB PO SCH (10:12)
[2020-02-25] MEDS: NICOTINE 21 MG/24 HR PATCH TD SCH (10:13)
[2020-02-25] MEDS: FOLIC ACID 1 MG TAB PO SCH (10:13)
[2020-02-25] MEDS: OMEGA-3 FATTY ACIDS/FISH OIL 1 GRAM CAP PO SCH ×2 (10:17→22:06)
[2020-02-25] MEDS: ASPIRIN 325 MG TAB PO SCH (10:46)
[2020-02-25 15:00] LABS: CD4/CD8 Ratio 0.35 (0.86-5.00)
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
--- NOTE | 2020-02-25 17:17 | Consultation ---
History of Present Illness Consult date: 02/25/20 Reason for Consult: change in mental status History of present illness: This is a comprehensive neurological consultation on Mr. Octaviano Patel who is a very pleasant 54 years old gentleman admitted couple of weeks ago with the symptoms of alcohol withdrawal symptoms. According to nurse he was able to communicate this morning and was awake however he was still in restraints. Now he is totally somnolent and does not follow any simple commands as well as he is confused. He is COVID-SR +ve. He also has history of HIV. Patient cannot provi de any history and this information has been obtained from his current chart. According to nurse there is no weakness in both arms or legs. Past History Past Medical History: other (unable to obtain since patient is confused and does not follow any simple commands) Social history: other (unable to obtain please see H&P) Family history: other (unable to obtain please see H&P) Medications and Allergies Allergies Allergy/AdvReac Type Severity Reaction Status Date / Time sulfamethoxazole AdvReac Swelling Verified 11/22/17 17:20 [From Bactrim] trimethoprim [From Bactrim] AdvReac Swelling Verified 11/22/17 17:20 Home Medications Medication Instructions Recorded Confirmed Last Taken Type Emtricitabin/Tenofovir [TRUVADA 1 tab PO QDAY 10/01/13 02/06/20 02/09/18 09:00 History 200-300 mg] Nitroglycerin [Nitrostat] 0.4 mg SL .Q5MIN PRN #90 tab 10/07/13 02/06/20 09/26/17 21:00 Rx Aspirin 325 mg PO QDAY #30 tablet 08/20/16 02/06/20 02/05/18 09:00 Rx Clopidogrel [Plavix] 75 mg PO QDAY #30 tablet 08/20/16 02/06/20 02/10/18 09:00 Rx Lopinavir/Ritonavir (Nf) [Kaletra 1 each PO BID #60 tablet 08/20/16 02/06/20 02/09/18 09:00 Rx 200-50 mg (Nf)] Metoprolol [Lopressor TAB] 12.5 mg PO BID #60 tablet 08/20/16 02/06/20 02/05/18 09:00 Rx Mirtazapine [Remeron] 45 mg PO QHS #30 tablet 08/20/16 02/06/20 02/05/18 09:00 Rx Pravastatin Sodium [Pravastatin] 10 mg PO QHS #30 tablet 08/20/16 02/06/20 02/05/18 09:00 Rx HYDROcodone/ACETAMINOPHEN 2 each PO Q6HR PRN #30 tablet 11/26/17 02/06/20 Unkn own Rx [Hydrocodon-Acetaminophen 5-325] Ondansetron [Zofran ODT TAB] 4 mg PO Q6H PRN 02/05/18 02/06/20 Unknown History Ibuprofen [Motrin 600 MG tab] 600 mg PO Q8H PRN #20 tablet 01/28/19 02/06/20 Unknown Rx Active Meds: Active Medications Acetaminophen (Tylenol) 650 mg PO Q4H PRN PRN Reason: Pain MILD(1-3)/Fever >100.5/GAMBINO Last Admin: 02/21/20 11:42 Dose: 650 mg Documented by: Aspirin (Aspirin) 325 mg PO QDAY [facility] Last Admin: 02/25/20 10:46 Dose: 325 mg Documented by: Clopidogrel Bisulfate (Plavix) 75 mg PO QDAY [facility] Last Admin: 02/25/20 10:12 Dose: 75 mg Documented by: Dexamethasone (Decadron) 6 mg IV Q24HR [facility] Stop: 03/04/20 10:01 Last Admin: 02/25/20 10:11 Dose: 6 mg Documented by: Emtricitabine (Emtriva) 200 mg PO QDAY [facility] Last Admin: 02/25/20 10:11 Dose: 200 mg Documented by: Enoxaparin Sodium (Enoxaparin) 40 mg SUB-Q QDAY@2200 [facility]; Protocol Last Admin: 02/24/20 22:11 Dose: 40 mg Documented by: Famotidine (Pepcid) 20 mg PO BID [facility] Last Admin: 02/25/20 10:11 Dose: 20 mg Documented by: Fish Oil (Fish Oil) 2,000 mg PO BID [facility] Last Admin: 02/25/20 10:17 Dose: 2,000 mg Documented by: Folic Acid (Folvite) 1 mg PO QDAY [facility] Last Admin: 02/25/20 10:13 Dose: 1 mg Documented by: Labetalol HCl (Labetalol) 10 mg IV Q3HR PRN PRN Reason: Increased Blood Pressure Last Admin: 02/18/20 20:44 Dose: 10 mg Documented by: Lorazepam (Ativan) 2 mg IV Q4H PRN PRN Reason: Agitation Last Admin: 02/22/20 18:59 Dose: 2 mg Documented by: Melatonin (Melatonin) 5 mg PO QHS [facility] Last Admin: 02/24/20 22:11 Dose: 5 mg Documented by: Metoclopramide HCl (Reglan) 10 mg IV Q6H PRN PRN Reason: Nausea And Vomiting Metoprolol Tartrate (Metoprolol) 25 mg PO BID [facility] Last Admin: 02/25/20 10:12 Dose: 25 mg Documented by: Nicotine (Habitrol) 21 mg TD QDAY [facility] Last Admin: 02/25/20 10:13 Dose: 21 mg Documented by: Nifedipine (Procardia Xl) 30 mg PO Q12HR [facility] Last Admin: 02/25/20 10:12 Dose: 30 mg Documented by: Olanzapine (Zyprexa) 5 mg PO QHS [facility] Last Admin: 02/24/20 22:11 Dose: 5 mg Documented by: Ondansetron HCl (Zofran) 4 mg IV Q8H PRN PRN Reason: Nausea And Vomiting Last Admin: 02/10/20 01:28 Dose: 4 mg Documented by: Oxycodone/Acetaminophen (Percocet 5/325) 1 tab PO Q6H PRN PRN Reason: Pain, Moderate (4-6) Last Admin: 02/20/20 21:04 Dose: 1 tab Documented by: Sodium Chloride (Sodium Chloride Flush Syringe 10 Ml) 10 ml IV BID [facility] Last Admin: 02/25/20 10:18 Dose: 10 ml Documented by: Sodium Chloride (Sodium Chloride Flush Syringe 10 Ml) 10 ml IV PRN PRN PRN Reason: LINE FLUSH Last Admin: 02/20/20 19:07 Dose: 10 ml Documented by: Tenofovir Disoproxil Fumarate (Viread) 300 mg PO QDAY [facility] Last Admin: 02/25/20 10:11 Dose: 300 mg Documented by: Thiamine HCl (Vitamin B-1) 100 mg PO QDAY [facility] Last Admin: 02/25/20 10:12 Dose: 100 mg Documented by: Zolpidem Tartrate (Ambien) 5 mg PO QHS [facility] Last Admin: 02/24/20 22:11 Dose: 5 mg Documented by: Review of Systems ROS unobtainable: due to mental status (patient is confused and does not follow any simple commands.) Physical Examination - Vital Signs Vital Signs: Vital Signs Pulse Ox 99 02/05/20 14:32 - Physical Exam Narrative exam: Limited examinations. Patient is somnolent, occasionally open eyes to verbal as well as painful stimuli. At times follow 1 step, like sticking of the tongue. Speech is unable to examine since patient does not communicate Cranial nerve examinations: Limited examinations Pupils are reacting Face looks symmetrical Tongue is in midline Other cranial nerves are difficult to examine Motor examination: Able to move both arms and legs Sensory examination: Withdraw to painful stimuli The rest of the neuro exam is difficult to examine. Results - Laboratory Findings CBC and BMP: 02/21/20 07:46 02/24/20 11:14 Abnormal Lab Findings: Abnormal Labs 02/05/20 02/05/20 02/05/20 16:14 16:14 16:14 WBC RBC 5.42 H Hgb MCV 73 L MCH 24 L MCHC RDW 22.9 H Plt Count 126 L Lymph % (Auto) [place] % (Auto) [place] # (Auto) Seg Neutrophils % Monocytes % (Manual) 8.0 H D-Dimer Sodium Potassium Chloride Carbon Dioxide BUN Glucose POC Glucose Ferritin Direct Bilirubin AST ALT Alkaline Phosphatase Lactate Dehydrogenase C-Reactive Protein Total Protein Albumin Salicylates < 0.3 L Acetaminophen 5.0 L Lymph Enumerat CD4/CD8 % CD4 Cells % CD8 Cells Absolute CD8 Count Coronavirus (PCR) 02/05/20 02/06/20 02/08/20 17:51 16:11 17:58 WBC RBC Hgb MCV MCH MCHC RDW Plt Count Lymph % (Auto) [place] % (Auto) [place] # (Auto) Seg Neutrophils % Monocytes % (Manual) D-Dimer Sodium 135 L Potassium Chloride Carbon Dioxide 18 L 20 L BUN 8 L Glucose 105 H POC Glucose 106 H Ferritin Direct Bilirubin 0.3 H AST 79 H 59 H ALT 76 H Alkaline Phosphatase 214 H 166 H Lactate Dehydrogenase C-Reactive Protein Total Protein 8.7 H 8.6 H Albumin 3.7 L 3.5 L Salicylates Acetaminophen Lymph Enumerat CD4/CD8 % CD4 Cells % CD8 Cells Absolute CD8 Count Coronavirus (PCR) 02/09/20 02/09/20 02/09/20 05:25 05:25 21:50 WBC 4.4 L RBC Hgb 11.1 L MCV 77 L MCH 24 L MCHC 31 L RDW 23.8 H Plt Count 97 L Lymph % (Auto) 37.4 H [place] % (Auto) 13.5 H [place] # (Auto) Seg Neutrophils % Monocytes % (Manual) D-Dimer Sodium Potassium Chloride Carbon Dioxide 21 L BUN Glucose POC Glucose 107 H Ferritin Direct Bilirubin AST ALT Alkaline Phosphatase Lactate Dehydrogenase C-Reactive Protein Total Protein Albumin Salicylates Acetaminophen Lymph Enumerat CD4/CD8 % CD4 Cells % CD8 Cells Absolute CD8 Count Coronavirus (PCR) 02/19/20 02/19/20 02/21/20 05:41 05:41 07:46 WBC RBC 5.28 H 5.36 H Hgb MCV 75 L 74 L MCH 24 L 24 L MCHC RDW 22.1 H 21.8 H Plt Count Lymph % (Auto) 37.4 H 49.8 H [place] % (Auto) 12.1 H 9.8 H [place] # (Auto) 1.0 H Seg Neutrophils % 39.1 L Monocytes % (Manual) D-Dimer Sodium Potassium 3.0 L Chloride Carbon Dioxide BUN Glucose POC Glucose Ferritin Direct Bilirubin AST ALT 63 H Alkaline Phosphatase Lactate Dehydrogenase C-Reactive Protein Total Protein Albumin 3.2 L Salicylates Acetaminophen Lymph Enumerat CD4/CD8 % CD4 Cells % CD8 Cells Absolute CD8 Count Coronavirus (PCR) 02/21/20 02/21/20 02/21/20 07:46 09:00 15:12 WBC RBC Hgb MCV MCH MCHC RDW Plt Count Lymph % (Auto) [place] % (Auto) [place] # (Auto) Seg Neutrophils % Monocytes % (Manual) D-Dimer Sodium Potassium Chloride Carbon Dioxide 21 L BUN Glucose POC Glucose Ferritin Direct Bilirubin AST 85 H ALT 75 H Alkaline Phosphatase Lactate Dehydrogenase C-Reactive Protein Total Protein 8.6 H Albumin 3.1 L Salicylates Acetaminophen Lymph Enumerat CD4/CD8 0.35 L % CD4 Cells 22 L % CD8 Cells 61 H Absolute CD8 Count 1499 H Coronavirus (PCR) Positive A 02/21/20 02/21/20 02/21/20 15:12 15:12 15:12 WBC RBC Hgb MCV MCH MCHC RDW Plt Count Lymph % (Auto) [place] % (Auto) [place] # (Auto) Seg Neutrophils % Monocytes % (Manual) D-Dimer 1093.83 H Sodium Potassium Chloride Carbon Dioxide BUN Glucose POC Glucose Ferritin 320.1 H Direct Bilirubin AST ALT Alkaline Phosphatase Lactate Dehydrogenase 241 H C-Reactive Protein 5.30 H Total Protein Albumin Salicylates Acetaminophen Lymph Enumerat CD4/CD8 % CD4 Cells % CD8 Cells Absolute CD8 Count Coronavirus (PCR) 02/24/20 02/24/20 02/24/20 11:14 11:14 11:14 WBC RBC Hgb MCV MCH MCHC RDW Plt Count Lymph % (Auto) [place] % (Auto) [place] # (Auto) Seg Neutrophils % Monocytes % (Manual) D-Dimer 545.57 H Sodium Potassium 3.5 L Chloride 107.4 H Carbon Dioxide BUN 22 H Glucose POC Glucose Ferritin 367.4 H Direct Bilirubin AST 70 H ALT 60 H Alkaline Phosphatase Lactate Dehydrogenase 252 H C-Reactive Protein 2.90 H Total Protein 8.9 H Albumin 3.2 L Salicylates Acetaminophen Lymph Enumerat CD4/CD8 % CD4 Cells % CD8 Cells Absolute CD8 Count Coronavirus (PCR) Assessment and Plan - Patient Problems (1) COVID-19 Current Visit: Yes Status: Acute Plan to address problem: Plan: 1) treatment per primary care team (2) Alcohol withdrawal delirium Current Visit: Yes Status: Acute Plan to address problem: Plan: 1) Continue current care as per primary care team. 2) please give IV thiamine 100 mg daily (3) Encephalopathy Current Visit: No Status: Acute Plan to address problem: Plan: 1) Please order an MRI of the brain with and without ROSAURA if possible since Covid-19 can cause encephalopathy and white matter changes which cannot be seen by regular CAT scan of the brain. 2) Please order an EEG to look for subclinical seizures. 3) Neuro check as per floor protocol 4) DVT prophylaxis as per floor protocol 5) Blood test for serum ammonia and liver function test since patient has HIV a nd has been on anti-HIV medication to make sure it is liver function has been normal. I discussed with the patient's nurse regarding his condition and possible treatment options. Thank you very much for allowing us in the care of your patient. Please call us if you have any questions. Caleb Hsieh MD Tele-neurologist [phone]
--- NOTE | 2020-02-25 19:22 | Cat Scan Report ---
CTA CHEST WITH CONTRAST INDICATION / CLINICAL INFORMATION: Elevated D-dimers, evaluate for PE. TECHNIQUE: Axial CT images were obtained through the chest after injection of 100 mL Omnipaque 350 IV contrast. 3 plane MIP and/or 3D reconstructions were produced. All CT scans at this location are per formed using CT dose reduction for ALARA by means of automated exposure control. COMPARISON: None available. FINDINGS: PULMONARY ARTERIES: No pulmonary emboli. THORACIC AORTA: Ectatic ascending thoracic aorta measuring 4.0 cm in the mid ascending thoracic aorta . No acute abnormality. HEART: No significant abnormality. CORONARY ARTERY CALCIFICATION: Moderate. MEDIASTINUM / ANIYAH: No significant abnormality. PLEURA: No pleural effusion. No pneumothorax. LUNGS: Mild dependent atelectasis. ADDITIONAL FINDINGS: None. UPPER ABDOMEN: No acute findings. SKELETAL STRUCTURES: No significant osseous abnormality. IMPRESSION: 1. No CT evidence for pulmonary embolism. 2. Bibasilar dependent atelectasis. Signer Name: Shanel Omer MD Signed: 02/25/2020 7:17 PM Workstation Name: [id number]
[2020-02-25] MEDS: LORazepam 2 MG/ML VIAL IV PRN ×2 (19:49→23:29)
--- NOTE | 2020-02-25 20:26 | Progress Note ---
Assessment and Plan Assessment and plan: --COVID-19 test positive; 02/21/2020 Contact and droplet isolation precautions, --Covid positive patient ; no indication for remdesivir dexamethasone started today 02/24/2020 ID following, follow COVID-19 protocols --Elevated D-dimers; CTA chest negative for PE Lower extremity venous Doppler negative for DVT --HIV/AIDS Continue Truvada and dolutegravir. F/u HIV PCR and CD4 count Continue Ceftriaxone for now Monitor mentation consider further brain imaging if no better. --Left foot wounds; wound care consulted --Febrile illness; afebrile today Follow-up urine cultures, blood cultures, Chest x-ray no acute abnormalities --Acute toxic metabolic encephalopathy; Alcohol withdrawal symptoms present on admission , now off CIWA protocol Psych evaluated, on Zyprexa Mild improvement of symptoms, continues to be agitated CT head negative,Consulted neurology, possible MRI --Chronic alcohol use; Thiamine folic acid, DC IV fluids --Fracture metatarsal left foot closed; evaluated by Ortho No surgical intervention needed, supportive care --Hypertension urgency; present on admission Now well controlled ,continue current antihypertensives And as needed medications --Moderate malnutrition/hypoalbuminemia; Nutrition supplements, supportive care Consult dietitian --DVT prophylaxis;Lovenox --Restraint for safety --DC planning per case management We will closely monitor the patient and adjust the management as needed Plan of care reviewed with the patient's nurse, case management 02/10/2020. Continue CIWA protocol. Supportive care. 02/11/2020. Patient CIWA score is approximately 8. Patient still requiring restraints for agitation. Continue CIWA protocol 02/12/2020. Patient remains agitated requiring restraints. Continue CIWA protocol. PT evaluation. 02/13/2020. Physical therapy recommends rolling walker with home health PT. 02/14/2020. Nurse reports CIWA score of 10. Continue CIWA protocol. 02/15/20; patient remains confused, with alcohol withdrawal symptoms, on CIWA protocol 02/17/20; psych evaluation and recommendations noted and appreciated We will DC CIWA protocol, continue psych medications, Ativan as needed for agitation 02/18/2020; continue current management, discharge planning per case management 02/18; patient spiked fever of 102 F, cultures blood urine sent, chest x-ray requested 02/19; chest x-ray negative for acute abnormality, continues to have fever today 101.7 F Since patient has multiple risk factors like HIV, chronic alcohol use, we will rule out COVID-19 Placed isolation, Harry PCR sent, consulted ID 02/20; patient has low-grade fever, on empiric antibiotics, follow cultures, ID consulted Awaiting harry PCR test report, discussed with ID, restraint for safety, patient is transferred to MedSur/Covid unit 02/22/2020; COVID-19 test positive patient is more alert and awake today, ID evaluation noted and appreciated 02/23; wound care consulted, worsening lethargy ,consult neurologist, possible MRI if indicated 02/24' neurology consulted for worsening lethargy History Interval history: I have seen and examined medical records reviewed Isolation precautions/PPE protocols followed Patient feels better no new complaints Vital signs reviewed Hospitalist Physical - Constitutional Vitals: Temp Pulse Resp BP Pulse Ox 97.5 F L 69 18 107/75 100 02/25/20 16:08 02/25/20 16:08 02/25/20 16:08 02/25/20 16:08 02/25/20 16:08 General appearance: Present: no acute distress, well-nourished, other (Patient is lethargic, responds appropriately intermittently) - EENT Eyes: Present: PERRL, EOM intact - Neck Neck: Present: supple, normal ROM - Respiratory Respiratory effort: normal Respiratory: bilateral: diminished, rhonchi, negative: rales, wheezing - Cardiovascular Rhythm: regular Heart Sounds: Present: S1 & S2 - Extremities Extremities: no ischemia, No edema - Abdominal General gastrointestinal: soft, non-tender, non-distended, normal bowel sounds - Integumentary Integumentary: Present: clear, warm - Psychiatric Psychiatric: appropriate mood/affect, other (Confused at times) - Neurologic Neurologic: moves all extremities Results - Labs CBC & Chem 7: 02/21/20 07:46 02/24/20 11:14 Labs: Laboratory Last Values WBC 5.7 K/mm3 (4.5-11.0) 02/21/20 07:46 RBC 5.36 M/mm3 (3.65-5.03) H 02/21/20 07:46 Hgb 12.9 gm/dl (11.8-15.2) 02/21/20 07:46 Hct 39.8 % (35.5-45.6) 02/21/20 07:46 MCV 74 fl (84-94) L 02/21/20 07:46 MCH 24 pg (28-32) L 02/21/20 07:46 MCHC 32 % (32-34) 02/21/20 07:46 RDW 21.8 % (13.2-15.2) H 02/21/20 07:46 Plt Count 227 K/mm3 (140-440) 02/21/20 07:46 Lymph % (Auto) 49.8 % (13.4-35.0) H 02/21/20 07:46 [place] % (Auto) 9.8 % (0.0-7.3) H 02/21/20 07:46 Eos % (Auto) 0.1 % (0.0-4.3) 02/21/20 07:46 Baso % (Auto) 1.2 % (0.0-1.8) 02/21/20 07:46 Lymph # (Auto) 2.8 K/mm3 (1.2-5.4) 02/21/20 07:46 [place] # (Auto) 0.6 K/mm3 (0.0-0.8) 02/21/20 07:46 Eos # (Auto) 0.0 K/mm3 (0.0-0.4) 02/21/20 07:46 Baso # (Auto) 0.1 K/mm3 (0.0-0.1) 02/21/20 07:46 Add Manual Diff Complete 02/05/20 16:14 Total Counted 100 02/05/20 16:14 Seg Neutrophils % 39.1 % (40.0-70.0) L 02/21/20 07:46 Seg Neuts % (Manual) 58.0 % (40.0-70.0) 02/05/20 16:14 Band Neutrophils % 0 % 02/05/20 16:14 Lymphocytes % (Manual) 33.0 % (13.4-35.0) 02/05/20 16:14 Reactive Lymphs % (Man) 0 % 02/05/20 16:14 Monocytes % (Manual) 8.0 % (0.0-7.3) H 02/05/20 16:14 Eosinophils % (Manual) 1.0 % (0.0-4.3) 02/05/20 16:14 Basophils % (Manual) 0 % (0.0-1.8) 02/05/20 16:14 Metamyelocytes % 0 % 02/05/20 16:14 Myelocytes % 0 % 02/05/20 16:14 Promyelocytes % 0 % 02/05/20 16:14 Blast Cells % 0 % 02/05/20 16:14 Nucleated RBC % Not Reportable 02/05/20 16:14 Seg Neutrophils # 2.2 K/mm3 (1.8-7.7) 02/21/20 07:46 Seg Neutrophils # Man 2.8 K/mm3 (1.8-7.7) 02/05/20 16:14 Band Neutrophils # 0.0 K/mm3 02/05/20 16:14 Abs Lymphs (Manual) 2512 cells/uL (850-3900) 02/21/20 15:12 Lymphocytes # (Manual) 1.6 K/mm3 (1.2-5.4) 02/05/20 16:14 Abs React Lymphs (Man) 0.0 K/mm3 02/05/20 16:14 Monocytes # (Manual) 0.4 K/mm3 (0.0-0.8) 02/05/20 16:14 Eosinophils # (Manual) 0.0 K/mm3 (0.0-0.4) 02/05/20 16:14 Basophils # (Manual) 0.0 K/mm3 (0.0-0.1) 02/05/20 16:14 Metamyelocytes # 0.0 K/mm3 02/05/20 16:14 Myelocytes # 0.0 K/mm3 02/05/20 16:14 Promyelocytes # 0.0 K/mm3 02/05/20 16:14 Blast Cells # 0.0 K/mm3 02/05/20 16:14 WBC Morphology Not Reportable 02/05/20 16:14 Hypersegmented Neuts Not Reportable 02/05/20 16:14 Hyposegmented Neuts Not Reportable 02/05/20 16:14 Hypogranular Neuts Not Reportable 02/05/20 16:14 Smudge Cells Not Reportable 02/05/20 16:14 Toxic Granulation Not Reportable 02/05/20 16:14 Toxic Vacuolation Not Reportable 02/05/20 16:14 Dohle Bodies Not Reportable 02/05/20 16:14 Pelger-Huet Anomaly Not Reportable 02/05/20 16:14 Esperanza Rods Not Reportable 02/05/20 16:14 Platelet Estimate Not Reportable 02/05/20 16:14 Clumped Platelets Few 02/05/20 16:14 Plt Clumps, EDTA Not Reportable 02/05/20 16:14 Large Platelets Not Reportable 02/05/20 16:14 Giant Platelets Not Reportable 02/05/20 16:14 Platelet Satelliting Not Reportable 02/05/20 16:14 Plt Morphology Comment Not Reportable 02/05/20 16:14 RBC Morphology Not Reportable 02/05/20 16:14 Dimorphic RBCs Not Reportable 02/05/20 16:14 Polychromasia Not Reportable 02/05/20 16:14 Hypochromasia 1+ 02/05/20 16:14 Poikilocytosis Not Reportable 02/05/20 16:14 Anisocytosis 1+ 02/05/20 16:14 Microcytosis Few 02/05/20 16:14 Macrocytosis Not Reportable 02/05/20 16:14 Spherocytes Not Reportable 02/05/20 16:14 Pappenheimer Bodies Not Reportable 02/05/20 16:14 Sickle Cells Not Reportable 02/05/20 16:14 Target Cells Not Reportable 02/05/20 16:14 Tear Drop Cells Not Reportable 02/05/20 16:14 Ovalocytes Not Reportable 02/05/20 16:14 Helmet Cells Not Reportable 02/05/20 16:14 [place] Bodies Not Reportable 02/05/20 16:14 [place] Rings Not Reportable 02/05/20 16:14 Master Cells Not Reportable 02/05/20 16:14 Bite Cells Not Reportable 02/05/20 16:14 Crenated Cell Not Reportable 02/05/20 16:14 Elliptocytes Not Reportable 02/05/20 16:14 Acanthocytes (Spur) Not Reportable 02/05/20 16:14 Rouleaux Not Reportable 02/05/20 16:14 Hemoglobin C Crystals Not Reportable 02/05/20 16:14 Schistocytes Not Reportable 02/05/20 16:14 Malaria parasites Not Reportable 02/05/20 16:14 Bobby Bodies Not Reportable 02/05/20 16:14 Hem Pathologist Commnt No 02/05/20 16:14 D-Dimer 545.57 ng/mlDDU (0-234) H 02/24/20 11:14 Sodium 142 mmol/L (137-145) 02/24/20 11:14 Potassium 3.5 mmol/L (3.6-5.0) L 02/24/20 11:14 Chloride 107.4 mmol/L (98-107) H 02/24/20 11:14 Carbon Dioxide 22 mmol/L (22-30) 02/24/20 11:14 Anion Gap 16 mmol/L 02/24/20 11:14 BUN 22 mg/dL (9-20) H 02/24/20 11:14 Creatinine 1.2 mg/dL (0.8-1.3) 02/24/20 11:14 Estimated GFR > 60 ml/min 02/24/20 11:14 BUN/Creatinine Ratio 18 % 02/24/20 11:14 Glucose 94 mg/dL (75-100) 02/24/20 11:14 POC Glucose 79 (70-105) 02/14/20 08:25 Hemoglobin A1c 5.4 % (4-6) 02/06/20 04:58 Calcium 9.6 mg/dL (8.4-10.2) 02/24/20 11:14 Phosphorus 3.30 mg/dL (2.5-4.5) 02/19/20 05:41 Magnesium 1.70 mg/dL (1.7-2.3) 02/19/20 05:41 Ferritin 367.4 ng/mL (30.0-300.0) H 02/24/20 11:14 Total Bilirubin 0.50 mg/dL (0.1-1.2) 02/24/20 11:14 Direct Bilirubin 0.3 mg/dL (0-0.2) H 02/05/20 17:51 Indirect Bilirubin 0.5 mg/dL 02/05/20 17:51 AST 70 units/L (5-40) H 02/24/20 11:14 ALT 60 units/L (7-56) H 02/24/20 11:14 Alkaline Phosphatase 101 units/L (35-129) 02/24/20 11:14 Lactate Dehydrogenase 252 units/L (91-180) H 02/24/20 11:14 C-Reactive Protein 2.90 mg/dL (0.00-1.30) H 02/24/20 11:14 Total Protein 8.9 g/dL (6.3-8.2) H 02/24/20 11:14 Albumin 3.2 g/dL (3.9-5) L 02/24/20 11:14 Albumin/Globulin Ratio 0.6 % 02/24/20 11:14 Urine Color Yellow (Yellow) 02/05/20 17:47 Urine Turbidity Clear (Clear) 02/05/20 17:47 Urine pH 5.0 (5.0-7.0) 02/05/20 17:47 Ur Specific [place] 1.020 (1.003-1.030) 02/05/20 17:47 Urine Protein 100 mg/dl mg/dL (Negative) 02/05/20 17:47 Urine Glucose (UA) Neg mg/dL (Negative) 02/05/20 17:47 Urine Ketones 20 mg/dL (Negative) 02/05/20 17:47 Urine Blood Sm (Negative) 02/05/20 17:47 Urine Nitrite Neg (Negative) 02/05/20 17:47 Urine Bilirubin Neg (Negative) 02/05/20 17:47 Urine Urobilinogen 2.0 mg/dL (<2.0) 02/05/20 17:47 Ur Leukocyte Esterase Neg (Negative) 02/05/20 17:47 Urine WBC (Auto) 2.0 /HPF (0.0-6.0) 02/05/20 17:47 Urine RBC (Auto) 1.0 /HPF (0.0-6.0) 02/05/20 17:47 U Epithel Cells (Auto) < 1.0 /HPF (0-13.0) 02/05/20 17:47 Urine Mucus Few /HPF 02/05/20 17:47 Salicylates < 0.3 mg/dL (2.8-20.0) L 02/05/20 16:14 Urine Opiates Screen Presumptive negative 02/05/20 17:47 Urine Methadone Screen Presumptive negative 02/05/20 17:47 Acetaminophen 5.0 ug/mL (10.0-30.0) L 02/05/20 16:14 Ur Barbiturates Screen Presumptive negative 02/05/20 17:47 Ur Phencyclidine Scrn Presumptive negative 02/05/20 17:47 Ur Amphetamines Screen Presumptive negative 02/05/20 17:47 U Benzodiazepines Scrn Presumptive negative 02/05/20 17:47 Urine Cocaine Screen Presumptive negative 02/05/20 17:47 U Marijuana (THC) Screen Presumptive negative 02/05/20 17:47 Drugs of Abuse Note Disclamer 02/05/20 17:47 Plasma/Serum Alcohol < 0.01 % (0-0.07) 02/05/20 16:14 Lymph Enumerat CD4/CD8 0.35 (0.86-5.00) L 02/21/20 15:12 % CD3 Cells 83 % (57-85) 02/21/20 15:12 Absolute CD3 Count 2093 cells/uL (840-3060) 02/21/20 15:12 % CD4 Cells 22 % (30-61) L 02/21/20 15:12 Absolute CD4 Count 529 cells/uL (490-1740) 02/21/20 15:12 % CD8 Cells 61 % (12-42) H 02/21/20 15:12 Absolute CD8 Count 1499 cells/uL (180-1170) H 02/21/20 15:12 % CD19 Cells 8 % (6-29) 02/21/20 15:12 Absolute CD19 Count 194 cells/uL (110-660) 02/21/20 15:12 Coronavirus (PCR) Positive (Negative) A 02/21/20 09:00 [place]/IV: Voiding Method Condom Catheter IV Catheter Type [Right Peripheral IV Antecubital] IV Catheter Type [Right Wrist] Peripheral IV IV Catheter Type [Left Forearm INT / Saline Lock ] IV Catheter Type [Right INT / Saline Lock Forearm] IV Catheter Type [Right Hand] Peripheral IV Active Medications - Current Medications Current Medications: Generic Name Dose Route Start Last Admin Trade Name Freq PRN Reason Stop Dose Admin Acetaminophen 650 mg 02/05/20 22:45 02/21/20 11:42 Tylenol PO 650 mg Q4H PRN Administration Pain MILD(1-3)/Fever >100.5/GAMBINO Aspirin 325 mg 02/08/20 18:00 02/25/20 10:46 Aspirin PO 325 mg QDAY MICHAEL Administration Clopidogrel Bisulfate 75 mg 02/08/20 18:00 02/25/20 10:12 Plavix PO 75 mg QDAY MICHAEL Administration Dexamethasone 6 mg 02/24/20 11:00 02/25/20 10:11 Decadron IV 03/04/20 10:01 6 mg Q24HR MICHAEL Administration Emtricitabine 200 mg 02/21/20 13:00 02/25/20 10:11 Emtriva PO 200 mg QDAY MICHAEL Administration Enoxaparin Sodium 40 mg 02/21/20 22:00 02/24/20 22:11 Enoxaparin SUB-Q 40 mg QDAY@2200 MICHAEL Administration Protocol Famotidine 20 mg 02/07/20 22:00 02/25/20 10:11 Pepcid PO 20 mg BID MICHAEL Administration Fish Oil 2,000 mg 02/17/20 13:00 02/25/20 10:17 Fish Oil PO 2,000 mg BID MICHAEL Administration Folic Acid 1 mg 02/17/20 10:00 02/25/20 10:13 Folvite PO 1 mg QDAY MICHAEL Administration Labetalol HCl 10 mg 02/05/20 20:28 02/18/20 20:44 Labetalol IV 10 mg Q3HR PRN Administration Increased Blood Pressure Lorazepam 2 mg 02/21/20 11:55 02/25/20 19:49 Ativan IV 2 mg Q4H PRN Administration Agitation Melatonin 5 mg 02/17/20 22:00 02/24/20 22:11 Melatonin PO 5 mg QHS MICHAEL Administration Metoclopramide HCl 10 mg 02/05/20 22:45 Reglan IV Q6H PRN Nausea And Vomiting Metoprolol Tartrate 25 mg 02/16/20 19:43 02/25/20 10:12 Metoprolol PO 25 mg BID MICHAEL Administration Nicotine 21 mg 02/16/20 02:23 02/25/20 10:13 Habitrol TD 21 mg QDAY MICHAEL Administration Nifedipine 30 mg 02/16/20 22:00 02/25/20 10:12 Procardia Xl PO 30 mg Q12HR MICHAEL Administration Olanzapine 5 mg 02/17/20 22:00 02/24/20 22:11 Zyprexa PO 5 mg QHS MICHAEL Administration Ondansetron HCl 4 mg 02/05/20 22:45 02/10/20 01:28 Zofran IV 4 mg Q8H PRN Administration Nausea And Vomiting Oxycodone/Acetaminophen 1 tab 02/05/20 22:45 02/20/20 21:04 Percocet 5/325 PO 1 tab Q6H PRN Administration Pain, Moderate (4-6) Sodium Chloride 10 ml 02/06/20 10:00 02/25/20 10:18 Sodium Chloride Flush Syringe 10 Ml IV 10 ml BID MICHAEL Administration Sodium Chloride 10 ml 02/05/20 22:45 02/20/20 19:07 Sodium Chloride Flush Syringe 10 Ml IV 10 ml PRN PRN Administration LINE FLUSH Tenofovir Disoproxil Fumarate 300 mg 02/21/20 13:00 02/25/20 10:11 Viread PO 300 mg QDAY MICHAEL Administration Thiamine HCl 100 mg 02/17/20 10:00 02/25/20 10:12 Vitamin B-1 PO 100 mg QDAY MICHAEL Administration Zolpidem Tartrate 5 mg 02/17/20 22:00 02/24/20 22:11 Ambien PO 5 mg QHS MICHAEL Administration Nutrition/Malnutrition Assess - Dietary Evaluation Nutrition/Malnutrition Findings: Nutrition Notes Start: 02/12/20 11:26 Freq: Status: Active Protocol: Document 02/24/20 13:12 MARCY (Rec: 02/24/20 13:19 MARCY [id number]) Co-Sign 02/24/20 13:12 LM Nutrition Notes Initial or Follow up Reassessment Current Diagnosis Hypertension,Hyperlipidemia Other Pertinent Diagnosis ETOH withdrawals, HIV, foot fracture Current Diet Cardiac Labs/Tests Reviewed Pertinent Medications Thiamine Folic Acid Fish Oil Height 6 ft 1 in Weight 85 kg [place] Body Weight (kg) 83.63 BMI 24.7 Weight Status Appropriate Subjective/Other Information F/u intakes. Per RN, pt's intake very poor. Pt restraints lifted for eating. Percent of energy/protein needs met: 21%/30% Burn Absent Trauma Absent GI Symptoms None Usual Diet at Home Meals on Wheels Current % PO Negligible Minimum of two criteria No physical signs of malnutrition #2 Nutrition Diagnosis Inadequate oral intake As Evidenced by Signs and Symptoms RN reported pt consuming 0-25% of meals and does not always drink the ONS. Diagnosis Progress(for reassessment Worsened documentation) #1 Nutrition Diagnosis Food and nutrition-related knowledge deficit,Other: ( Specify in comment below) Diagnosis Progress(for reassessment Continues documentation) Is patient on ventilator? No Is Patient Ambulatory and/or Out of Bed No REE-([facility]-confined to bed) 2084.012 Calculation Used for Recommendations [facility] Additional Notes Pro: 70-88 g (0.8-1 g/kg) Fluid: 1ml/kcal Nutrition Intervention Change Diet Order: Recommend regular diet to promote intakes Add Supplement/Snack (indicate name/kcal Ensure Enlive Daily /protein ) Provides kCal: 350 Provides Protein (gm) 20 Goal #1 Pt will meet at least 75% of energy and protein needs. Anticipated Discharge Needs: Heart healthy diet Follow-Up By: 02/26/20 Additional Comments F/u intakes
[2020-02-25] MEDS: MELATONIN 5 MG TAB PO SCH (22:05)
[2020-02-25] MEDS: ZOLPIDEM 5 MG TAB PO SCH (22:08)
[2020-02-26] MEDS: ENOXAPARIN 40 MG/0.4 ML INJ SUB-Q SCH ×2 (03:50→21:04)
--- NOTE | 2020-02-26 08:52 | Progress Note ---
Assessment and Plan Assessment and plan: --COVID-19 test positive; 02/21/2020 Contact and droplet isolation precautions, --Covid positive patient ; no indication for remdesivir dexamethasone started today 02/24/2020 ID following, follow COVID-19 protocols --Elevated D-dimers; CTA chest negative for PE Lower extremity venous Doppler negative for DVT --HIV/AIDS Continue Truvada and dolutegravir. F/u HIV PCR and CD4 count Continue Ceftriaxone for now Monitor mentation consider further brain imaging if no better. --Left foot wounds; wound care consulted --Febrile illness; afebrile today Follow-up urine cultures, blood cultures, Chest x-ray no acute abnormalities --Acute toxic metabolic encephalopathy; Alcohol withdrawal symptoms present on admission , now off CIWA protocol Psych evaluated, on Zyprexa Mild improvement of symptoms, continues to be agitated CT head negative,Consulted neurology, possible MRI --Chronic alcohol use; Thiamine folic acid, DC IV fluids --Fracture metatarsal left foot closed; evaluated by Ortho No surgical intervention needed, supportive care --Hypertension urgency; present on admission Now well controlled ,continue current antihypertensives And as needed medications --Moderate malnutrition/hypoalbuminemia; Nutrition supplements, supportive care Consult dietitian --DVT prophylaxis;Lovenox --Restraint for safety --DC planning per case management We will closely monitor the patient and adjust the management as needed Plan of care reviewed with the patient's nurse, case management 02/10/2020. Continue CIWA protocol. Supportive care. 02/11/2020. Patient CIWA score is approximately 8. Patient still requiring restraints for agitation. Continue CIWA protocol 02/12/2020. Patient remains agitated requiring restraints. Continue CIWA protocol. PT evaluation. 02/13/2020. Physical therapy recommends rolling walker with home health PT. 02/14/2020. Nurse reports CIWA score of 10. Continue CIWA protocol. 02/15/20; patient remains confused, with alcohol withdrawal symptoms, on CIWA protocol 02/17/20; psych evaluation and recommendations noted and appreciated We will DC CIWA protocol, continue psych medications, Ativan as needed for agitation 02/18/2020; continue current management, discharge planning per case management 02/18; patient spiked fever of 102 F, cultures blood urine sent, chest x-ray requested 02/19; chest x-ray negative for acute abnormality, continues to have fever today 101.7 F Since patient has multiple risk factors like HIV, chronic alcohol use, we will rule out COVID-19 Placed isolation, Harry PCR sent, consulted ID 02/20; patient has low-grade fever, on empiric antibiotics, follow cultures, ID consulted Awaiting harry PCR test report, discussed with ID, restraint for safety, patient is transferred to [facility]/Covid unit 02/22/2020; COVID-19 test positive patient is more alert and awake today, ID evaluation noted and appreciated 02/23; wound care consulted, worsening lethargy ,consult neurologist, possible MRI if indicated 02/24' neurology consulted for worsening lethargy 02/26/2020. Neurology recommends MRI of brain with and without ROSAURA because Covid-19 can cause encephalopathy and white matter changes which cannot be seen by regular CAT scan of the brain. Follow-up EEG to evaluate subclinical seizures. Follow-up ammonia level to rule out hepatic encephalopathy. History Interval history: No new issues overnight. Hospitalist Physical - Constitutional Vitals: Temp Pulse Resp BP Pulse Ox 98.0 F 92 H 18 113/77 98 02/25/20 22:05 02/25/20 22:05 02/25/20 22:05 02/25/20 22:05 02/25/20 22:05 General appearance: Present: no acute distress, well-nourished, other (Patient is lethargic, responds appropriately intermittently) - EENT Eyes: Present: PERRL, EOM intact ENT: hearing intact, clear oral mucosa, dentition normal - Neck Neck: Present: supple, normal ROM - Respiratory Respiratory effort: normal Respiratory: bilateral: CTA - Cardiovascular Rhythm: regular Heart Sounds: Present: S1 & S2. Absent: gallop, rub - Extremities Extremities: no ischemia, No edema, Full ROM - Abdominal General gastrointestinal: soft, non-tender, non-distended, normal bowel sounds - Integumentary Integumentary: Present: clear, warm, dry - Neurologic Neurologic: CNII-XII intact, moves all extremities Results - Labs CBC & Chem 7: 02/21/20 07:46 02/24/20 11:14 Labs: Laboratory Last Values WBC 5.7 K/mm3 (4.5-11.0) 02/21/20 07:46 RBC 5.36 M/mm3 (3.65-5.03) H 02/21/20 07:46 Hgb 12.9 gm/dl (11.8-15.2) 02/21/20 07:46 Hct 39.8 % (35.5-45.6) 02/21/20 07:46 MCV 74 fl (84-94) L 02/21/20 07:46 MCH 24 pg (28-32) L 02/21/20 07:46 MCHC 32 % (32-34) 02/21/20 07:46 RDW 21.8 % (13.2-15.2) H 02/21/20 07:46 Plt Count 227 K/mm3 (140-440) 02/21/20 07:46 Lymph % (Auto) 49.8 % (13.4-35.0) H 02/21/20 07:46 [place] % (Auto) 9.8 % (0.0-7.3) H 02/21/20 07:46 Eos % (Auto) 0.1 % (0.0-4.3) 02/21/20 07:46 Baso % (Auto) 1.2 % (0.0-1.8) 02/21/20 07:46 Lymph # (Auto) 2.8 K/mm3 (1.2-5.4) 02/21/20 07:46 [place] # (Auto) 0.6 K/mm3 (0.0-0.8) 02/21/20 07:46 Eos # (Auto) 0.0 K/mm3 (0.0-0.4) 02/21/20 07:46 Baso # (Auto) 0.1 K/mm3 (0.0-0.1) 02/21/20 07:46 Add Manual Diff Complete 02/05/20 16:14 Total Counted 100 02/05/20 16:14 Seg Neutrophils % 39.1 % (40.0-70.0) L 02/21/20 07:46 Seg Neuts % (Manual) 58.0 % (40.0-70.0) 02/05/20 16:14 Band Neutrophils % 0 % 02/05/20 16:14 Lymphocytes % (Manual) 33.0 % (13.4-35.0) 02/05/20 16:14 Reactive Lymphs % (Man) 0 % 02/05/20 16:14 Monocytes % (Manual) 8.0 % (0.0-7.3) H 02/05/20 16:14 Eosinophils % (Manual) 1.0 % (0.0-4.3) 02/05/20 16:14 Basophils % (Manual) 0 % (0.0-1.8) 02/05/20 16:14 Metamyelocytes % 0 % 02/05/20 16:14 Myelocytes % 0 % 02/05/20 16:14 Promyelocytes % 0 % 02/05/20 16:14 Blast Cells % 0 % 02/05/20 16:14 Nucleated RBC % Not Reportable 02/05/20 16:14 Seg Neutrophils # 2.2 K/mm3 (1.8-7.7) 02/21/20 07:46 Seg Neutrophils # Man 2.8 K/mm3 (1.8-7.7) 02/05/20 16:14 Band Neutrophils # 0.0 K/mm3 02/05/20 16:14 Abs Lymphs (Manual) 2512 cells/uL (850-3900) 02/21/20 15:12 Lymphocytes # (Manual) 1.6 K/mm3 (1.2-5.4) 02/05/20 16:14 Abs React Lymphs (Man) 0.0 K/mm3 02/05/20 16:14 Monocytes # (Manual) 0.4 K/mm3 (0.0-0.8) 02/05/20 16:14 Eosinophils # (Manual) 0.0 K/mm3 (0.0-0.4) 02/05/20 16:14 Basophils # (Manual) 0.0 K/mm3 (0.0-0.1) 02/05/20 16:14 Metamyelocytes # 0.0 K/mm3 02/05/20 16:14 Myelocytes # 0.0 K/mm3 02/05/20 16:14 Promyelocytes # 0.0 K/mm3 02/05/20 16:14 Blast Cells # 0.0 K/mm3 02/05/20 16:14 WBC Morphology Not Reportable 02/05/20 16:14 Hypersegmented Neuts Not Reportable 02/05/20 16:14 Hyposegmented Neuts Not Reportable 02/05/20 16:14 Hypogranular Neuts Not Reportable 02/05/20 16:14 Smudge Cells Not Reportable 02/05/20 16:14 Toxic Granulation Not Reportable 02/05/20 16:14 Toxic Vacuolation Not Reportable 02/05/20 16:14 Dohle Bodies Not Reportable 02/05/20 16:14 Pelger-Huet Anomaly Not Reportable 02/05/20 16:14 Esperanza Rods Not Reportable 02/05/20 16:14 Platelet Estimate Not Reportable 02/05/20 16:14 Clumped Platelets Few 02/05/20 16:14 Plt Clumps, EDTA Not Reportable 02/05/20 16:14 Large Platelets Not Reportable 02/05/20 16:14 Giant Platelets Not Reportable 02/05/20 16:14 Platelet Satelliting Not Reportable 02/05/20 16:14 Plt Morphology Comment Not Reportable 02/05/20 16:14 RBC Morphology Not Reportable 02/05/20 16:14 Dimorphic RBCs Not Reportable 02/05/20 16:14 Polychromasia Not Reportable 02/05/20 16:14 Hypochromasia 1+ 02/05/20 16:14 Poikilocytosis Not Reportable 02/05/20 16:14 Anisocytosis 1+ 02/05/20 16:14 Microcytosis Few 02/05/20 16:14 Macrocytosis Not Reportable 02/05/20 16:14 Spherocytes Not Reportable 02/05/20 16:14 Pappenheimer Bodies Not Reportable 02/05/20 16:14 Sickle Cells Not Reportable 02/05/20 16:14 Target Cells Not Reportable 02/05/20 16:14 Tear Drop Cells Not Reportable 02/05/20 16:14 Ovalocytes Not Reportable 02/05/20 16:14 Helmet Cells Not Reportable 02/05/20 16:14 [place] Bodies Not Reportable 02/05/20 16:14 [place] Rings Not Reportable 02/05/20 16:14 [place] Cells Not Reportable 02/05/20 16:14 Bite Cells Not Reportable 02/05/20 16:14 Crenated Cell Not Reportable 02/05/20 16:14 Elliptocytes Not Reportable 02/05/20 16:14 Acanthocytes (Spur) Not Reportable 02/05/20 16:14 Rouleaux Not Reportable 02/05/20 16:14 Hemoglobin C Crystals Not Reportable 02/05/20 16:14 Schistocytes Not Reportable 02/05/20 16:14 Malaria parasites Not Reportable 02/05/20 16:14 Bobby Bodies Not Reportable 02/05/20 16:14 Hem Pathologist Commnt No 02/05/20 16:14 D-Dimer 545.57 ng/mlDDU (0-234) H 02/24/20 11:14 Sodium 142 mmol/L (137-145) 02/24/20 11:14 Potassium 3.5 mmol/L (3.6-5.0) L 02/24/20 11:14 Chloride 107.4 mmol/L (98-107) H 02/24/20 11:14 Carbon Dioxide 22 mmol/L (22-30) 02/24/20 11:14 Anion Gap 16 mmol/L 02/24/20 11:14 BUN 22 mg/dL (9-20) H 02/24/20 11:14 Creatinine 1.2 mg/dL (0.8-1.3) 02/24/20 11:14 Estimated GFR > 60 ml/min 02/24/20 11:14 BUN/Creatinine Ratio 18 % 02/24/20 11:14 Glucose 94 mg/dL (75-100) 02/24/20 11:14 POC Glucose 79 (70-105) 02/14/20 08:25 Hemoglobin A1c 5.4 % (4-6) 02/06/20 04:58 Calcium 9.6 mg/dL (8.4-10.2) 02/24/20 11:14 Phosphorus 3.30 mg/dL (2.5-4.5) 02/19/20 05:41 Magnesium 1.70 mg/dL (1.7-2.3) 02/19/20 05:41 Ferritin 367.4 ng/mL (30.0-300.0) H 02/24/20 11:14 Total Bilirubin 0.50 mg/dL (0.1-1.2) 02/24/20 11:14 Direct Bilirubin 0.3 mg/dL (0-0.2) H 02/05/20 17:51 Indirect Bilirubin 0.5 mg/dL 02/05/20 17:51 AST 70 units/L (5-40) H 02/24/20 11:14 ALT 60 units/L (7-56) H 02/24/20 11:14 Alkaline Phosphatase 101 units/L (35-129) 02/24/20 11:14 Lactate Dehydrogenase 252 units/L (91-180) H 02/24/20 11:14 C-Reactive Protein 2.90 mg/dL (0.00-1.30) H 02/24/20 11:14 Total Protein 8.9 g/dL (6.3-8.2) H 02/24/20 11:14 Albumin 3.2 g/dL (3.9-5) L 02/24/20 11:14 Albumin/Globulin Ratio 0.6 % 02/24/20 11:14 Urine Color Yellow (Yellow) 02/05/20 17:47 Urine Turbidity Clear (Clear) 02/05/20 17:47 Urine pH 5.0 (5.0-7.0) 02/05/20 17:47 Ur Specific Media 1.020 (1.003-1.030) 02/05/20 17:47 Urine Protein 100 mg/dl mg/dL (Negative) 02/05/20 17:47 Urine Glucose (UA) Neg mg/dL (Negative) 02/05/20 17:47 Urine Ketones 20 mg/dL (Negative) 02/05/20 17:47 Urine Blood Sm (Negative) 02/05/20 17:47 Urine Nitrite Neg (Negative) 02/05/20 17:47 Urine Bilirubin Neg (Negative) 02/05/20 17:47 Urine Urobilinogen 2.0 mg/dL (<2.0) 02/05/20 17:47 Ur Leukocyte Esterase Neg (Negative) 02/05/20 17:47 Urine WBC (Auto) 2.0 /HPF (0.0-6.0) 02/05/20 17:47 Urine RBC (Auto) 1.0 /HPF (0.0-6.0) 02/05/20 17:47 U Epithel Cells (Auto) < 1.0 /HPF (0-13.0) 02/05/20 17:47 Urine Mucus Few /HPF 02/05/20 17:47 Salicylates < 0.3 mg/dL (2.8-20.0) L 02/05/20 16:14 Urine Opiates Screen Presumptive negative 02/05/20 17:47 Urine Methadone Screen Presumptive negative 02/05/20 17:47 Acetaminophen 5.0 ug/mL (10.0-30.0) L 02/05/20 16:14 Ur Barbiturates Screen Presumptive negative 02/05/20 17:47 Ur Phencyclidine Scrn Presumptive negative 02/05/20 17:47 Ur Amphetamines Screen Presumptive negative 02/05/20 17:47 U Benzodiazepines Scrn Presumptive negative 02/05/20 17:47 Urine Cocaine Screen Presumptive negative 02/05/20 17:47 U Marijuana (THC) Screen Presumptive negative 02/05/20 17:47 Drugs of Abuse Note Disclamer 02/05/20 17:47 Plasma/Serum Alcohol < 0.01 % (0-0.07) 02/05/20 16:14 Lymph Enumerat CD4/CD8 0.35 (0.86-5.00) L 02/21/20 15:12 % CD3 Cells 83 % (57-85) 02/21/20 15:12 Absolute CD3 Count 2093 cells/uL (840-3060) 02/21/20 15:12 % CD4 Cells 22 % (30-61) L 02/21/20 15:12 Absolute CD4 Count 529 cells/uL (490-1740) 02/21/20 15:12 % CD8 Cells 61 % (12-42) H 02/21/20 15:12 Absolute CD8 Count 1499 cells/uL (180-1170) H 02/21/20 15:12 % CD19 Cells 8 % (6-29) 02/21/20 15:12 Absolute CD19 Count 194 cells/uL (110-660) 02/21/20 15:12 Coronavirus (PCR) Positive (Negative) A 02/21/20 09:00 [place]/IV: Voiding Method Condom Catheter IV Catheter Type [Right Peripheral IV Antecubital] IV Catheter Type [Right Wrist] Peripheral IV IV Catheter Type [Left Forearm INT / Saline Lock ] IV Catheter Type [Right INT / Saline Lock Forearm] IV Catheter Type [Right Hand] Peripheral IV Active Medications - Current Medications Current Medications: Generic Name Dose Route Start Last Admin Trade Name Freq PRN Reason Stop Dose Admin Acetaminophen 650 mg 02/05/20 22:45 02/21/20 11:42 Tylenol PO 650 mg Q4H PRN Administration Pain MILD(1-3)/Fever >100.5/GAMBINO Aspirin 325 mg 02/08/20 18:00 02/25/20 10:46 Aspirin PO 325 mg QDAY MICHAEL Administration Clopidogrel Bisulfate 75 mg 02/08/20 18:00 02/25/20 10:12 Plavix PO 75 mg QDAY MICHAEL Administration Dexamethasone 6 mg 02/24/20 11:00 02/25/20 10:11 Decadron IV 03/04/20 10:01 6 mg Q24HR MICHAEL Administration Emtricitabine 200 mg 02/21/20 13:00 02/25/20 10:11 Emtriva PO 200 mg QDAY MICHAEL Administration Enoxaparin Sodium 40 mg 02/21/20 22:00 02/26/20 03:50 Enoxaparin SUB-Q Not Given QDAY@2200 [facility] Protocol Famotidine 20 mg 02/07/20 22:00 02/25/20 22:05 Pepcid PO 20 mg BID MICHAEL Administration Fish Oil 2,000 mg 02/17/20 13:00 02/25/20 22:06 Fish Oil PO 2,000 mg BID MICHAEL Administration Folic Acid 1 mg 02/17/20 10:00 02/25/20 10:13 Folvite PO 1 mg QDAY MICHAEL Administration Labetalol HCl 10 mg 02/05/20 20:28 02/18/20 20:44 Labetalol IV 10 mg Q3HR PRN Administration Increased Blood Pressure Lorazepam 2 mg 02/21/20 11:55 02/25/20 23:29 Ativan IV 2 mg Q4H PRN Administration Agitation Melatonin 5 mg 02/17/20 22:00 02/25/20 22:05 Melatonin PO 5 mg QHS MICHAEL Administration Metoclopramide HCl 10 mg 02/05/20 22:45 Reglan IV Q6H PRN Nausea And Vomiting Metoprolol Tartrate 25 mg 02/16/20 19:43 02/25/20 22:05 Metoprolol PO 25 mg BID MICHAEL Administration Nicotine 21 mg 02/16/20 02:23 02/25/20 10:13 Habitrol TD 21 mg QDAY MICHAEL Administration Nifedipine 30 mg 02/16/20 22:00 02/25/20 22:05 Procardia Xl PO 30 mg Q12HR MICHAEL Administration Olanzapine 5 mg 02/17/20 22:00 02/25/20 22:05 Zyprexa PO 5 mg QHS MICHAEL Administration Ondansetron HCl 4 mg 02/05/20 22:45 02/10/20 01:28 Zofran IV 4 mg Q8H PRN Administration Nausea And Vomiting Oxycodone/Acetaminophen 1 tab 02/05/20 22:45 02/20/20 21:04 Percocet 5/325 PO 1 tab Q6H PRN Administration Pain, Moderate (4-6) Sodium Chloride 10 ml 02/06/20 10:00 02/26/20 03:53 Sodium Chloride Flush Syringe 10 Ml IV Not Given BID MICHAEL Sodium Chloride 10 ml 02/05/20 22:45 02/20/20 19:07 Sodium Chloride Flush Syringe 10 Ml IV 10 ml PRN PRN Administration LINE FLUSH Tenofovir Disoproxil Fumarate 300 mg 02/21/20 13:00 02/25/20 10:11 Viread PO 300 mg QDAY MICHAEL Administration Thiamine HCl 100 mg 02/17/20 10:00 02/25/20 10:12 Vitamin B-1 PO 100 mg QDAY MICHAEL Administration Zolpidem Tartrate 5 mg 02/17/20 22:00 02/25/20 22:08 Ambien PO 5 mg QHS MICHAEL Administration Nutrition/Malnutrition Assess - Dietary Evaluation Nutrition/Malnutrition Findings: Nutrition Notes Start: 02/12/20 11:26 Freq: Status: Active Protocol: Document 02/24/20 13:12 MARCY (Rec: 02/24/20 13:19 MARCY [id number]) Co-Sign 02/24/20 13:12 LM Nutrition Notes Initial or Follow up Reassessment Current Diagnosis Hypertension,Hyperlipidemia Other Pertinent Diagnosis ETOH withdrawals, HIV, foot fracture Current Diet Cardiac Labs/Tests Reviewed Pertinent Medications Thiamine Folic Acid Fish Oil Height 6 ft 1 in Weight 85 kg [place] Body Weight (kg) 83.63 BMI 24.7 Weight Status Appropriate Subjective/Other Information F/u intakes. Per RN, pt's intake very poor. Pt restraints lifted for eating. Percent of energy/protein needs met: 21%/30% Burn Absent Trauma Absent GI Symptoms None Usual Diet at Home Meals on Wheels Current % PO Negligible Minimum of two criteria No physical signs of malnutrition #2 Nutrition Diagnosis Inadequate oral intake As Evidenced by Signs and Symptoms RN reported pt consuming 0-25% of meals and does not always drink the ONS. Diagnosis Progress(for reassessment Worsened documentation) #1 Nutrition Diagnosis Food and nutrition-related knowledge deficit,Other: ( Specify in comment below) Diagnosis Progress(for reassessment Continues documentation) Is patient on ventilator? No Is Patient Ambulatory and/or Out of Bed No REE-(Acosta-St. Jeor-confined to bed) 2084.012 Calculation Used for Recommendations Acosta-St Jeor Additional Notes Pro: 70-88 g (0.8-1 g/kg) Fluid: 1ml/kcal Nutrition Intervention Change Diet Order: Recommend regular diet to promote intakes Add Supplement/Snack (indicate name/kcal Ensure Enlive Daily /protein ) Provides kCal: 350 Provides Protein (gm) 20 Goal #1 Pt will meet at least 75% of energy and protein needs. Anticipated Discharge Needs: Heart healthy diet Follow-Up By: 02/26/20 Additional Comments F/u intakes
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
[2020-02-26] MEDS: THIAMINE 100 MG TAB PO SCH ×2 (10:00→11:40)
[2020-02-26] MEDS: DOLUTEGRAVIR 50 MG TAB PO SCH ×2 (10:09→11:43)
[2020-02-26] MEDS: dexAMETHasone 4 MG/ML VIAL IV SCH (11:39)
[2020-02-26] MEDS: METOPROLOL TARTRATE 25 MG TAB PO SCH ×2 (11:40→21:06)
[2020-02-26] MEDS: NIFEdipine XL 30 MG TAB PO SCH ×2 (11:40→21:08)
[2020-02-26] MEDS: CLOPIDOGREL 75 MG TAB PO SCH (11:41)
[2020-02-26] MEDS: ASPIRIN 325 MG TAB PO SCH (11:41)
[2020-02-26] MEDS: EMTRICITABINE 200 MG CAP PO SCH (11:41)
[2020-02-26] MEDS: FAMOTIDINE 20 MG TAB PO SCH ×2 (11:41→21:07)
[2020-02-26] MEDS: FOLIC ACID 1 MG TAB PO SCH (11:42)
[2020-02-26] MEDS: TENOFOVIR 300 MG TAB PO SCH (11:42)
[2020-02-26] MEDS: OMEGA-3 FATTY ACIDS/FISH OIL 1 GRAM CAP PO SCH ×2 (11:42→21:09)
[2020-02-26] MEDS: NICOTINE 21 MG/24 HR PATCH TD SCH (11:43)
[2020-02-26] MEDS: LORazepam 2 MG/ML VIAL IV PRN (20:47)
[2020-02-26] MEDS: ZOLPIDEM 5 MG TAB PO SCH (21:03)
[2020-02-26] MEDS: MELATONIN 5 MG TAB PO SCH (21:04)
[2020-02-26] MEDS ORDERED: ZIPRASIDONE MESYLATE 20 MG VIAL IM ONE (21:18)
[2020-02-27] MEDS: LORazepam 2 MG/ML VIAL IV PRN ×5 (02:04→21:05)
[2020-02-27] MEDS: METOPROLOL TARTRATE 25 MG TAB PO SCH ×2 (09:37→21:09)
[2020-02-27] MEDS: ASPIRIN 325 MG TAB PO SCH (09:37)
[2020-02-27] MEDS: CLOPIDOGREL 75 MG TAB PO SCH (09:38)
[2020-02-27] MEDS: dexAMETHasone 4 MG/ML VIAL IV SCH (09:38)
[2020-02-27] MEDS: NIFEdipine XL 30 MG TAB PO SCH ×2 (09:38→21:09)
[2020-02-27] MEDS: FOLIC ACID 1 MG TAB PO SCH (09:38)
[2020-02-27] MEDS: OMEGA-3 FATTY ACIDS/FISH OIL 1 GRAM CAP PO SCH ×2 (09:38→21:05)
[2020-02-27] MEDS: NICOTINE 21 MG/24 HR PATCH TD SCH (09:38)
[2020-02-27] MEDS: THIAMINE 100 MG TAB PO SCH (09:38)
[2020-02-27] MEDS: EMTRICITABINE 200 MG CAP PO SCH (09:39)
[2020-02-27] MEDS: FAMOTIDINE 20 MG TAB PO SCH ×2 (09:40→21:06)
[2020-02-27] MEDS: TENOFOVIR 300 MG TAB PO SCH (09:41)
[2020-02-27] MEDS: DOLUTEGRAVIR 50 MG TAB PO SCH (09:42)
--- NOTE | 2020-02-27 10:09 | Progress Note ---
Assessment and Plan Assessment and plan: --COVID-19 test positive; 02/21/2020 Contact and droplet isolation precautions, --Covid positive patient ; no indication for remdesivir dexamethasone started today 02/24/2020 ID following, follow COVID-19 protocols --Elevated D-dimers; CTA chest negative for PE Lower extremity venous Doppler negative for DVT --HIV/AIDS Continue Truvada and dolutegravir. F/u HIV PCR and CD4 count Continue Ceftriaxone for now Monitor mentation consider further brain imaging if no better. --Left foot wounds; wound care consulted --Febrile illness; afebrile today Follow-up urine cultures, blood cultures, Chest x-ray no acute abnormalities --Acute toxic metabolic encephalopathy; Alcohol withdrawal symptoms present on admission , now off CIWA protocol Psych evaluated, on Zyprexa Mild improvement of symptoms, continues to be agitated CT head negative,Consulted neurology, possible MRI --Chronic alcohol use; Thiamine folic acid, DC IV fluids --Fracture metatarsal left foot closed; evaluated by Ortho Multiple metatarsal fractures involving 2 through 5 with minimal displacement No surgical intervention needed, supportive care --Hypertension urgency; present on admission Now well controlled ,continue current antihypertensives And as needed medications --Moderate malnutrition/hypoalbuminemia; Nutrition supplements, supportive care Consult dietitian --DVT prophylaxis;Lovenox --Restraint for safety --DC planning per case management We will closely monitor the patient and adjust the management as needed Plan of care reviewed with the patient's nurse, case management 02/10/2020. Continue CIWA protocol. Supportive care. 02/11/2020. Patient CIWA score is approximately 8. Patient still requiring restraints for agitation. Continue CIWA protocol 02/12/2020. Patient remains agitated requiring restraints. Continue CIWA protocol. PT evaluation. 02/13/2020. Physical therapy recommends rolling walker with home health PT. 02/14/2020. Nurse reports CIWA score of 10. Continue CIWA protocol. 02/15/20; patient remains confused, with alcohol withdrawal symptoms, on CIWA protocol 02/17/20; psych evaluation and recommendations noted and appreciated We will DC CIWA protocol, continue psych medications, Ativan as needed for agitation 02/18/2020; continue current management, discharge planning per case management 02/18; patient spiked fever of 102 F, cultures blood urine sent, chest x-ray requested 02/19; chest x-ray negative for acute abnormality, continues to have fever today 101.7 F Since patient has multiple risk factors like HIV, chronic alcohol use, we will rule out COVID-19 Placed isolation, Harry PCR sent, consulted ID 02/20; patient has low-grade fever, on empiric antibiotics, follow cultures, ID consulted Awaiting harry PCR test report, discussed with ID, restraint for safety, patient is transferred to MedSur/Covid unit 02/22/2020; COVID-19 test positive patient is more alert and awake today, ID evaluation noted and appreciated 02/23; wound care consulted, worsening lethargy ,consult neurologist, possible MRI if indicated 02/24' neurology consulted for worsening lethargy 02/26/2020. Neurology recommends MRI of brain with and without ROSAURA because Covid-19 can cause encephalopathy and white matter changes which cannot be seen by regular CAT scan of the brain. Follow-up EEG to evaluate subclinical seizu res. Follow-up ammonia level to rule out hepatic encephalopathy. 02/27/2020. MRI of the brain with and without contrast ordered. Ammonia level within normal limits. Follow-up EEG to evaluate subclinical seizures. Continue dexamethasone 6 mg IV given mild hypoxia for total of 10 days. Conservative management for crush injury to the left foot. History Interval history: No new issues overnight. Hospitalist Physical - Constitutional Vitals: Temp Pulse Resp BP Pulse Ox 97.6 F 81 20 137/85 95 02/27/20 05:29 02/27/20 09:37 02/27/20 05:29 02/27/20 09:37 02/27/20 05:29 General appearance: Present: no acute distress, well-nourished, other (Patient is lethargic, responds appropriately intermittently) - EENT Eyes: Present: PERRL, EOM intact ENT: hearing intact, clear oral mucosa, dentition normal - Neck Neck: Present: supple, normal ROM - Respiratory Respiratory effort: normal Respiratory: bilateral: CTA - Cardiovascular Rhythm: regular Heart Sounds: Present: S1 & S2. Absent: gallop, rub - Extremities Extremities: no ischemia, No edema, Full ROM - Abdominal General gastrointestinal: soft, non-tender, non-distended, normal bowel sounds - Integumentary Integumentary: Present: clear, warm, dry - Neurologic Neurologic: CNII-XII intact, moves all extremities Results - Labs CBC & Chem 7: 02/21/20 07:46 02/24/20 11:14 Labs: Laboratory Last Values WBC 5.7 K/mm3 (4.5-11.0) 02/21/20 07:46 RBC 5.36 M/mm3 (3.65-5.03) H 02/21/20 07:46 Hgb 12.9 gm/dl (11.8-15.2) 02/21/20 07:46 Hct 39.8 % (35.5-45.6) 02/21/20 07:46 MCV 74 fl (84-94) L 02/21/20 07:46 MCH 24 pg (28-32) L 02/21/20 07:46 MCHC 32 % (32-34) 02/21/20 07:46 RDW 21.8 % (13.2-15.2) H 02/21/20 07:46 Plt Count 227 K/mm3 (140-440) 02/21/20 07:46 Lymph % (Auto) 49.8 % (13.4-35.0) H 02/21/20 07:46 [place] % (Auto) 9.8 % (0.0-7.3) H 02/21/20 07:46 Eos % (Auto) 0.1 % (0.0-4.3) 02/21/20 07:46 Baso % (Auto) 1.2 % (0.0-1.8) 02/21/20 07:46 Lymph # (Auto) 2.8 K/mm3 (1.2-5.4) 02/21/20 07:46 [place] # (Auto) 0.6 K/mm3 (0.0-0.8) 02/21/20 07:46 Eos # (Auto) 0.0 K/mm3 (0.0-0.4) 02/21/20 07:46 Baso # (Auto) 0.1 K/mm3 (0.0-0.1) 02/21/20 07:46 Add Manual Diff Complete 02/05/20 16:14 Total Counted 100 02/05/20 16:14 Seg Neutrophils % 39.1 % (40.0-70.0) L 02/21/20 07:46 Seg Neuts % (Manual) 58.0 % (40.0-70.0) 02/05/20 16:14 Band Neutrophils % 0 % 02/05/20 16:14 Lymphocytes % (Manual) 33.0 % (13.4-35.0) 02/05/20 16:14 Reactive Lymphs % (Man) 0 % 02/05/20 16:14 Monocytes % (Manual) 8.0 % (0.0-7.3) H 02/05/20 16:14 Eosinophils % (Manual) 1.0 % (0.0-4.3) 02/05/20 16:14 Basophils % (Manual) 0 % (0.0-1.8) 02/05/20 16:14 Metamyelocytes % 0 % 02/05/20 16:14 Myelocytes % 0 % 02/05/20 16:14 Promyelocytes % 0 % 02/05/20 16:14 Blast Cells % 0 % 02/05/20 16:14 Nucleated RBC % Not Reportable 02/05/20 16:14 Seg Neutrophils # 2.2 K/mm3 (1.8-7.7) 02/21/20 07:46 Seg Neutrophils # Man 2.8 K/mm3 (1.8-7.7) 02/05/20 16:14 Band Neutrophils # 0.0 K/mm3 02/05/20 16:14 Abs Lymphs (Manual) 2512 cells/uL (850-3900) 02/21/20 15:12 Lymphocytes # (Manual) 1.6 K/mm3 (1.2-5.4) 02/05/20 16:14 Abs React Lymphs (Man) 0.0 K/mm3 02/05/20 16:14 Monocytes # (Manual) 0.4 K/mm3 (0.0-0.8) 02/05/20 16:14 Eosinophils # (Manual) 0.0 K/mm3 (0.0-0.4) 02/05/20 16:14 Basophils # (Manual) 0.0 K/mm3 (0.0-0.1) 02/05/20 16:14 Metamyelocytes # 0.0 K/mm3 02/05/20 16:14 Myelocytes # 0.0 K/mm3 02/05/20 16:14 Promyelocytes # 0.0 K/mm3 02/05/20 16:14 Blast Cells # 0.0 K/mm3 02/05/20 16:14 WBC Morphology Not Reportable 02/05/20 16:14 Hypersegmented Neuts Not Reportable 02/05/20 16:14 Hyposegmented Neuts Not Reportable 02/05/20 16:14 Hypogranular Neuts Not Reportable 02/05/20 16:14 Smudge Cells Not Reportable 02/05/20 16:14 Toxic Granulation Not Reportable 02/05/20 16:14 Toxic Vacuolation Not Reportable 02/05/20 16:14 Dohle Bodies Not Reportable 02/05/20 16:14 Pelger-Huet Anomaly Not Reportable 02/05/20 16:14 Esperanza Rods Not Reportable 02/05/20 16:14 Platelet Estimate Not Reportable 02/05/20 16:14 Clumped Platelets Few 02/05/20 16:14 Plt Clumps, EDTA Not Reportable 02/05/20 16:14 Large Platelets Not Reportable 02/05/20 16:14 Giant Platelets Not Reportable 02/05/20 16:14 Platelet Satelliting Not Reportable 02/05/20 16:14 Plt Morphology Comment Not Reportable 02/05/20 16:14 RBC Morphology Not Reportable 02/05/20 16:14 Dimorphic RBCs Not Reportable 02/05/20 16:14 Polychromasia Not Reportable 02/05/20 16:14 Hypochromasia 1+ 02/05/20 16:14 Poikilocytosis Not Reportable 02/05/20 16:14 Anisocytosis 1+ 02/05/20 16:14 Microcytosis Few 02/05/20 16:14 Macrocytosis Not Reportable 02/05/20 16:14 Spherocytes Not Reportable 02/05/20 16:14 Pappenheimer Bodies Not Reportable 02/05/20 16:14 Sickle Cells Not Reportable 02/05/20 16:14 Target Cells Not Reportable 02/05/20 16:14 Tear Drop Cells Not Reportable 02/05/20 16:14 Ovalocytes Not Reportable 02/05/20 16:14 Helmet Cells Not Reportable 02/05/20 16:14 [place] Bodies Not Reportable 02/05/20 16:14 Roe Rings Not Reportable 02/05/20 16:14 [place] Cells Not Reportable 02/05/20 16:14 Bite Cells Not Reportable 02/05/20 16:14 Crenated Cell Not Reportable 02/05/20 16:14 Elliptocytes Not Reportable 02/05/20 16:14 Acanthocytes (Spur) Not Reportable 02/05/20 16:14 Rouleaux Not Reportable 02/05/20 16:14 Hemoglobin C Crystals Not Reportable 02/05/20 16:14 Schistocytes Not Reportable 02/05/20 16:14 Malaria parasites Not Reportable 02/05/20 16:14 Bobby Bodies Not Reportable 02/05/20 16:14 Hem Pathologist Commnt No 02/05/20 16:14 D-Dimer 545.57 ng/mlDDU (0-234) H 02/24/20 11:14 Sodium 142 mmol/L (137-145) 02/24/20 11:14 Potassium 3.5 mmol/L (3.6-5.0) L 02/24/20 11:14 Chloride 107.4 mmol/L (98-107) H 02/24/20 11:14 Carbon Dioxide 22 mmol/L (22-30) 02/24/20 11:14 Anion Gap 16 mmol/L 02/24/20 11:14 BUN 22 mg/dL (9-20) H 02/24/20 11:14 Creatinine 1.2 mg/dL (0.8-1.3) 02/24/20 11:14 Estimated GFR > 60 ml/min 02/24/20 11:14 BUN/Creatinine Ratio 18 % 02/24/20 11:14 Glucose 94 mg/dL (75-100) 02/24/20 11:14 POC Glucose 79 (70-105) 02/14/20 08:25 Hemoglobin A1c 5.4 % (4-6) 02/06/20 04:58 Calcium 9.6 mg/dL (8.4-10.2) 02/24/20 11:14 Phosphorus 3.30 mg/dL (2.5-4.5) 02/19/20 05:41 Magnesium 1.70 mg/dL (1.7-2.3) 02/19/20 05:41 Ferritin 367.4 ng/mL (30.0-300.0) H 02/24/20 11:14 Total Bilirubin 0.50 mg/dL (0.1-1.2) 02/24/20 11:14 Direct Bilirubin 0.3 mg/dL (0-0.2) H 02/05/20 17:51 Indirect Bilirubin 0.5 mg/dL 02/05/20 17:51 AST 70 units/L (5-40) H 02/24/20 11:14 ALT 60 units/L (7-56) H 02/24/20 11:14 Alkaline Phosphatase 101 units/L (35-129) 02/24/20 11:14 Ammonia 36.0 umol/L (25-60) 02/26/20 10:33 Lactate Dehydrogenase 252 units/L (91-180) H 02/24/20 11:14 C-Reactive Protein 2.90 mg/dL (0.00-1.30) H 02/24/20 11:14 Total Protein 8.9 g/dL (6.3-8.2) H 02/24/20 11:14 Albumin 3.2 g/dL (3.9-5) L 02/24/20 11:14 Albumin/Globulin Ratio 0.6 % 02/24/20 11:14 Urine Color Yellow (Yellow) 02/05/20 17:47 Urine Turbidity Clear (Clear) 02/05/20 17:47 Urine pH 5.0 (5.0-7.0) 02/05/20 17:47 Ur Specific [place] 1.020 (1.003-1.030) 02/05/20 17:47 Urine Protein 100 mg/dl mg/dL (Negative) 02/05/20 17:47 Urine Glucose (UA) Neg mg/dL (Negative) 02/05/20 17:47 Urine Ketones 20 mg/dL (Negative) 02/05/20 17:47 Urine Blood Sm (Negative) 02/05/20 17:47 Urine Nitrite Neg (Negative) 02/05/20 17:47 Urine Bilirubin Neg (Negative) 02/05/20 17:47 Urine Urobilinogen 2.0 mg/dL (<2.0) 02/05/20 17:47 Ur Leukocyte Esterase Neg (Negative) 02/05/20 17:47 Urine WBC (Auto) 2.0 /HPF (0.0-6.0) 02/05/20 17:47 Urine RBC (Auto) 1.0 /HPF (0.0-6.0) 02/05/20 17:47 U Epithel Cells (Auto) < 1.0 /HPF (0-13.0) 02/05/20 17:47 Urine Mucus Few /HPF 02/05/20 17:47 Salicylates < 0.3 mg/dL (2.8-20.0) L 02/05/20 16:14 Urine Opiates Screen Presumptive negative 02/05/20 17:47 Urine Methadone Screen Presumptive negative 02/05/20 17:47 Acetaminophen 5.0 ug/mL (10.0-30.0) L 02/05/20 16:14 Ur Barbiturates Screen Presumptive negative 02/05/20 17:47 Ur Phencyclidine Scrn Presumptive negative 02/05/20 17:47 Ur Amphetamines Screen Presumptive negative 02/05/20 17:47 U Benzodiazepines Scrn Presumptive negative 02/05/20 17:47 Urine Cocaine Screen Presumptive negative 02/05/20 17:47 U Marijuana (THC) Screen Presumptive negative 02/05/20 17:47 Drugs of Abuse Note Disclamer 02/05/20 17:47 Plasma/Serum Alcohol < 0.01 % (0-0.07) 02/05/20 16:14 Lymph Enumerat CD4/CD8 0.35 (0.86-5.00) L 02/21/20 15:12 % CD3 Cells 83 % (57-85) 02/21/20 15:12 Absolute CD3 Count 2093 cells/uL (840-3060) 02/21/20 15:12 % CD4 Cells 22 % (30-61) L 02/21/20 15:12 Absolute CD4 Count 529 cells/uL (490-1740) 02/21/20 15:12 % CD8 Cells 61 % (12-42) H 02/21/20 15:12 Absolute CD8 Count 1499 cells/uL (180-1170) H 02/21/20 15:12 % CD19 Cells 8 % (6-29) 02/21/20 15:12 Absolute CD19 Count 194 cells/uL (110-660) 02/21/20 15:12 Coronavirus (PCR) Positive (Negative) A 02/21/20 09:00 [place]/IV: Voiding Method Condom Catheter IV Catheter Type [Right Peripheral IV Antecubital] IV Catheter Type [Right Wrist] Peripheral IV IV Catheter Type [Left Forearm INT / Saline Lock ] IV Catheter Type [Right INT / Saline Lock Forearm] IV Catheter Type [Right Hand] Peripheral IV Active Medications - Current Medications Current Medications: Generic Name Dose Route Start Last Admin Trade Name Freq PRN Reason Stop Dose Admin Acetaminophen 650 mg 02/05/20 22:45 02/21/20 11:42 Tylenol PO 650 mg Q4H PRN Administration Pain MILD(1-3)/Fever >100.5/GAMBINO Aspirin 325 mg 02/08/20 18:00 02/27/20 09:37 Aspirin PO 325 mg QDAY MICHAEL Administration Clopidogrel Bisulfate 75 mg 02/08/20 18:00 02/27/20 09:38 Plavix PO 75 mg QDAY MICHAEL Administration Dexamethasone 6 mg 02/24/20 11:00 02/27/20 09:38 Decadron IV 03/04/20 10:01 6 mg Q24HR MICHAEL Administration Emtricitabine 200 mg 02/21/20 13:00 02/27/20 09:39 Emtriva PO 200 mg QDAY MICHAEL Administration Enoxaparin Sodium 40 mg 02/21/20 22:00 02/26/20 21:04 Enoxaparin SUB-Q 40 mg QDAY@2200 MICHAEL Administration Protocol Famotidine 20 mg 02/07/20 22:00 02/27/20 09:40 Pepcid PO 20 mg BID MICHAEL Administration Fish Oil 2,000 mg 02/17/20 13:00 02/27/20 09:38 Fish Oil PO 2,000 mg BID MICHAEL Administration Folic Acid 1 mg 02/17/20 10:00 02/27/20 09:38 Folvite PO 1 mg QDAY MICHAEL Administration Labetalol HCl 10 mg 02/05/20 20:28 02/18/20 20:44 Labetalol IV 10 mg Q3HR PRN Administration Increased Blood Pressure Lorazepam 2 mg 02/21/20 11:55 02/27/20 08:05 Ativan IV 2 mg Q4H PRN Administration Agitation Melatonin 5 mg 02/17/20 22:00 02/26/20 21:04 Melatonin PO 5 mg QHS MICHAEL Administration Metoclopramide HCl 10 mg 02/05/20 22:45 Reglan IV Q6H PRN Nausea And Vomiting Metoprolol Tartrate 25 mg 02/16/20 19:43 02/27/20 09:37 Metoprolol PO 25 mg BID MICHAEL Administration Nicotine 21 mg 02/16/20 02:23 02/27/20 09:38 Habitrol TD 21 mg QDAY MICHAEL Administration Nifedipine 30 mg 02/16/20 22:00 02/27/20 09:38 Procardia Xl PO 30 mg Q12HR MICHAEL Administration Olanzapine 5 mg 02/17/20 22:00 02/26/20 21:03 Zyprexa PO 5 mg QHS MICHAEL Administration Ondansetron HCl 4 mg 02/05/20 22:45 02/10/20 01:28 Zofran IV 4 mg Q8H PRN Administration Nausea And Vomiting Oxycodone/Acetaminophen 1 tab 02/05/20 22:45 02/20/20 21:04 Percocet 5/325 PO 1 tab Q6H PRN Administration Pain, Moderate (4-6) Sodium Chloride 10 ml 02/06/20 10:00 02/27/20 09:40 Sodium Chloride Flush Syringe 10 Ml IV 10 ml BID MICHAEL Administration Sodium Chloride 10 ml 02/05/20 22:45 02/26/20 11:45 Sodium Chloride Flush Syringe 10 Ml IV 10 ml PRN PRN Administration LINE FLUSH Tenofovir Disoproxil Fumarate 300 mg 02/21/20 13:00 02/27/20 09:41 Viread PO 300 mg QDAY MICHAEL Administration Thiamine HCl 100 mg 02/17/20 10:00 02/27/20 09:38 Vitamin B-1 PO 100 mg QDAY MICHAEL Administration Zolpidem Tartrate 5 mg 02/17/20 22:00 02/26/20 21:03 Ambien PO 5 mg QHS MICHAEL Administration Nutrition/Malnutrition Assess - Dietary Evaluation Nutrition/Malnutrition Findings: Nutrition Notes Start: 02/12/20 11:26 Freq: Status: Active Protocol: Document 02/26/20 12:09 LM (Rec: 02/26/20 12:17 LM [id number]) Nutrition Notes Initial or Follow up Reassessment Current Diagnosis Hypertension,Hyperlipidemia Other Pertinent Diagnosis ETOH withdrawals, HIV, foot fracture Current Diet Cardiac Labs/Tests K 3.5 BUN 22 Pertinent Medications Folic acid Thiamine Fish oil Decadron Height 6 ft 1 in Weight 68.2 kg [place] Body Weight (kg) 83.63 BMI 19.8 Weight change and time frame Wt change noted Subjective/Other Information RN stated pt did not eat breakfast but usually eats lunch and dinner. Pt has not yet received lunch at time of call. Burn Absent Trauma Absent GI Symptoms None Usual Diet at Home Meals on Wheels Current % PO Negligible Minimum of two criteria No physical signs of malnutrition #2 Nutrition Diagnosis Inadequate oral intake Diagnosis Progress(for reassessment Continues documentation) #1 Nutrition Diagnosis Food and nutrition-related knowledge deficit,Other: ( Specify in comment below) Diagnosis Progress(for reassessment Continues documentation) Is patient on ventilator? No Is Patient Ambulatory and/or Out of Bed No REE-(Menard-St. Jeor-confined to bed) 3951.956 Calculation Used for Recommendations Menard-St Jeor Additional Notes Pro: 70-88 g (0.8-1 g/kg) Fluid: 1ml/kcal Nutrition Intervention Change Diet Order: Regular Add Supplement/Snack (indicate name/kcal Ensure Enlive Daily /protein ) Provides kCal: 350 Provides Protein (gm) 20 Goal #1 Pt will meet at least 75% of energy and protein needs. Anticipated Discharge Needs: Heart healthy diet Follow-Up By: 03/01/20 Additional Comments F/U for PO/ONS intakes, wt
[2020-02-27] MEDS: ENOXAPARIN 40 MG/0.4 ML INJ SUB-Q SCH (21:05)
[2020-02-27] MEDS: MELATONIN 5 MG TAB PO SCH (21:05)
[2020-02-27] MEDS: ZOLPIDEM 5 MG TAB PO SCH (21:05)
--- NOTE | 2020-02-28 08:39 | Progress Note ---
Assessment and Plan Assessment and plan: --COVID-19 test positive; 02/21/2020 Contact and droplet isolation precautions, --Covid positive patient ; no indication for remdesivir dexamethasone started today 02/24/2020 ID following, follow COVID-19 protocols --Elevated D-dimers; CTA chest negative for PE Lower extremity venous Doppler negative for DVT --HIV/AIDS Continue Truvada and dolutegravir. F/u HIV PCR and CD4 count Continue Ceftriaxone for now Monitor mentation consider further brain imaging if no better. --Left foot wounds; wound care consulted --Febrile illness; afebrile today Follow-up urine cultures, blood cultures, Chest x-ray no acute abnormalities --Acute toxic metabolic encephalopathy; Alcohol withdrawal symptoms present on admission , now off CIWA protocol Psych evaluated, on Zyprexa Mild improvement of symptoms, continues to be agitated CT head negative,Consulted neurology, possible MRI --Chronic alcohol use; Thiamine folic acid, DC IV fluids --Fracture metatarsal left foot closed; evaluated by Ortho Multiple metatarsal fractures involving 2 through 5 with minimal displacement No surgical intervention needed, supportive care --Hypertension urgency; present on admission Now well controlled ,continue current antihypertensives And as needed medications --Moderate malnutrition/hypoalbuminemia; Nutrition supplements, supportive care Consult dietitian --DVT prophylaxis;Lovenox --Restraint for safety --DC planning per case management We will closely monitor the patient and adjust the management as needed Plan of care reviewed with the patient's nurse, case management 02/10/2020. Continue CIWA protocol. Supportive care. 02/11/2020. Patient CIWA score is approximately 8. Patient still requiring restraints for agitation. Continue CIWA protocol 02/12/2020. Patient remains agitated requiring restraints. Continue CIWA protocol. PT evaluation. 02/13/2020. Physical therapy recommends rolling walker with home health PT. 02/14/2020. Nurse reports CIWA score of 10. Continue CIWA protocol. 02/15/20; patient remains confused, with alcohol withdrawal symptoms, on CIWA protocol 02/17/20; psych evaluation and recommendations noted and appreciated We will DC CIWA protocol, continue psych medications, Ativan as needed for agitation 02/18/2020; continue current management, discharge planning per case management 02/18; patient spiked fever of 102 F, cultures blood urine sent, chest x-ray requested 02/19; chest x-ray negative for acute abnormality, continues to have fever today 101.7 F Since patient has multiple risk factors like HIV, chronic alcohol use, we will rule out COVID-19 Placed isolation, Harry PCR sent, consulted ID 02/20; patient has low-grade fever, on empiric antibiotics, follow cultures, ID consulted Awaiting harry PCR test report, discussed with ID, restraint for safety, [facility] 02/22/2020; COVID-19 test positive patient is more alert and awake today, ID evaluation noted and appreciated 02/23; wound care consulted, worsening lethargy ,consult neurologist, possible MRI if indicated 02/24' neurology consulted for worsening lethargy 02/26/2020. Neurology recommends MRI of brain with and without ROSAURA because Covid-19 can cause encephalopathy and white matter changes which cannot be seen by regular CAT scan of the brain. Follow-up EEG to evaluate subclinical seizu res. Follow-up ammonia level to rule out hepatic encephalopathy. 02/27/2020. MRI of the brain with and without contrast ordered. Ammonia level within normal limits. Follow-up EEG to evaluate subclinical seizures. Continue dexamethasone 6 mg IV given mild hypoxia for total of 10 days. Conservative management for crush injury to the left foot. 02/28/2020. Await MRI brain and EEG for further evaluation. Continue dexamethasone given hypoxia. Neurology and ID following. Continue retrovirals for HIV. Obtain exercise pulse oximetry when patient stable and cooperative. History Interval history: No new issues overnight. Hospitalist Physical - Constitutional Vitals: Temp Pulse Resp BP Pulse Ox 97.3 F L 120 H 18 154/82 97 02/28/20 03:56 02/28/20 03:56 02/28/20 03:56 02/28/20 04:14 02/28/20 03:56 General appearance: Present: no acute distress, well-nourished, other (Patient is lethargic, responds appropriately intermittently) - EENT Eyes: Present: PERRL, EOM intact ENT: hearing intact, clear oral mucosa, dentition normal - Neck Neck: Present: supple, normal ROM - Respiratory Respiratory effort: normal Respiratory: bilateral: CTA - Cardiovascular Rhythm: regular Heart Sounds: Present: S1 & S2. Absent: gallop, rub - Extremities Extremities: no ischemia, No edema, Full ROM - Abdominal General gastrointestinal: soft, non-tender, non-distended, normal bowel sounds - Integumentary Integumentary: Present: clear, warm, dry - Neurologic Neurologic: CNII-XII intact, moves all extremities Results - Labs CBC & Chem 7: 02/21/20 07:46 02/24/20 11:14 Labs: Laboratory Last Values WBC 5.7 K/mm3 (4.5-11.0) 02/21/20 07:46 RBC 5.36 M/mm3 (3.65-5.03) H 02/21/20 07:46 Hgb 12.9 gm/dl (11.8-15.2) 02/21/20 07:46 Hct 39.8 % (35.5-45.6) 02/21/20 07:46 MCV 74 fl (84-94) L 02/21/20 07:46 MCH 24 pg (28-32) L 02/21/20 07:46 MCHC 32 % (32-34) 02/21/20 07:46 RDW 21.8 % (13.2-15.2) H 02/21/20 07:46 Plt Count 227 K/mm3 (140-440) 02/21/20 07:46 Lymph % (Auto) 49.8 % (13.4-35.0) H 02/21/20 07:46 [place] % (Auto) 9.8 % (0.0-7.3) H 02/21/20 07:46 Eos % (Auto) 0.1 % (0.0-4.3) 02/21/20 07:46 Baso % (Auto) 1.2 % (0.0-1.8) 02/21/20 07:46 Lymph # (Auto) 2.8 K/mm3 (1.2-5.4) 02/21/20 07:46 [place] # (Auto) 0.6 K/mm3 (0.0-0.8) 02/21/20 07:46 Eos # (Auto) 0.0 K/mm3 (0.0-0.4) 02/21/20 07:46 Baso # (Auto) 0.1 K/mm3 (0.0-0.1) 02/21/20 07:46 Add Manual Diff Complete 02/05/20 16:14 Total Counted 100 10/09/20 16:14 Seg Neutrophils % 39.1 % (40.0-70.0) L 02/21/20 07:46 Seg Neuts % (Manual) 58.0 % (40.0-70.0) 02/05/20 16:14 Band Neutrophils % 0 % 02/05/20 16:14 Lymphocytes % (Manual) 33.0 % (13.4-35.0) 02/05/20 16:14 Reactive Lymphs % (Man) 0 % 02/05/20 16:14 Monocytes % (Manual) 8.0 % (0.0-7.3) H 02/05/20 16:14 Eosinophils % (Manual) 1.0 % (0.0-4.3) 02/05/20 16:14 Basophils % (Manual) 0 % (0.0-1.8) 02/05/20 16:14 Metamyelocytes % 0 % 02/05/20 16:14 Myelocytes % 0 % 02/05/20 16:14 Promyelocytes % 0 % 02/05/20 16:14 Blast Cells % 0 % 02/05/20 16:14 Nucleated RBC % Not Reportable 02/05/20 16:14 Seg Neutrophils # 2.2 K/mm3 (1.8-7.7) 02/21/20 07:46 Seg Neutrophils # Man 2.8 K/mm3 (1.8-7.7) 02/05/20 16:14 Band Neutrophils # 0.0 K/mm3 02/05/20 16:14 Abs Lymphs (Manual) 2512 cells/uL (850-3900) 02/21/20 15:12 Lymphocytes # (Manual) 1.6 K/mm3 (1.2-5.4) 02/05/20 16:14 Abs React Lymphs (Man) 0.0 K/mm3 02/05/20 16:14 Monocytes # (Manual) 0.4 K/mm3 (0.0-0.8) 02/05/20 16:14 Eosinophils # (Manual) 0.0 K/mm3 (0.0-0.4) 02/05/20 16:14 Basophils # (Manual) 0.0 K/mm3 (0.0-0.1) 02/05/20 16:14 Metamyelocytes # 0.0 K/mm3 02/05/20 16:14 Myelocytes # 0.0 K/mm3 02/05/20 16:14 Promyelocytes # 0.0 K/mm3 02/05/20 16:14 Blast Cells # 0.0 K/mm3 02/05/20 16:14 WBC Morphology Not Reportable 02/05/20 16:14 Hypersegmented Neuts Not Reportable 02/05/20 16:14 Hyposegmented Neuts Not Reportable 02/05/20 16:14 Hypogranular Neuts Not Reportable 02/05/20 16:14 Smudge Cells Not Reportable 02/05/20 16:14 Toxic Granulation Not Reportable 02/05/20 16:14 Toxic Vacuolation Not Reportable 02/05/20 16:14 Dohle Bodies Not Reportable 02/05/20 16:14 [place] Anomaly Not Reportable 02/05/20 16:14 [place] Rods Not Reportable 02/05/20 16:14 Platelet Estimate Not Reportable 02/05/20 16:14 Clumped Platelets Few 02/05/20 16:14 Plt Clumps, EDTA Not Reportable 02/05/20 16:14 Large Platelets Not Reportable 02/05/20 16:14 Giant Platelets Not Reportable 02/05/20 16:14 Platelet Satelliting Not Reportable 02/05/20 16:14 Plt Morphology Comment Not Reportable 02/05/20 16:14 RBC Morphology Not Reportable 02/05/20 16:14 Dimorphic RBCs Not Reportable 02/05/20 16:14 Polychromasia Not Reportable 02/05/20 16:14 Hypochromasia 1+ 02/05/20 16:14 Poikilocytosis Not Reportable 02/05/20 16:14 Anisocytosis 1+ 02/05/20 16:14 Microcytosis Few 02/05/20 16:14 Macrocytosis Not Reportable 02/05/20 16:14 Spherocytes Not Reportable 02/05/20 16:14 Pappenheimer Bodies Not Reportable 02/05/20 16:14 Sickle Cells Not Reportable 02/05/20 16:14 Target Cells Not Reportable 02/05/20 16:14 Tear Drop Cells Not Reportable 02/05/20 16:14 Ovalocytes Not Reportable 02/05/20 16:14 Helmet Cells Not Reportable 02/05/20 16:14 [place] Bodies Not Reportable 02/05/20 16:14 [place] Rings Not Reportable 02/05/20 16:14 [place] Cells Not Reportable 02/05/20 16:14 Bite Cells Not Reportable 02/05/20 16:14 Crenated Cell Not Reportable 02/05/20 16:14 Elliptocytes Not Reportable 02/05/20 16:14 Acanthocytes (Spur) Not Reportable 02/05/20 16:14 Rouleaux Not Reportable 02/05/20 16:14 Hemoglobin C Crystals Not Reportable 02/05/20 16:14 Schistocytes Not Reportable 02/05/20 16:14 Malaria parasites Not Reportable 02/05/20 16:14 Bobby Bodies Not Reportable 02/05/20 16:14 Hem Pathologist Commnt No 02/05/20 16:14 D-Dimer 545.57 ng/mlDDU (0-234) H 02/24/20 11:14 Sodium 142 mmol/L (137-145) 02/24/20 11:14 Potassium 3.5 mmol/L (3.6-5.0) L 02/24/20 11:14 Chloride 107.4 mmol/L (98-107) H 02/24/20 11:14 Carbon Dioxide 22 mmol/L (22-30) 02/24/20 11:14 Anion Gap 16 mmol/L 02/24/20 11:14 BUN 22 mg/dL (9-20) H 02/24/20 11:14 Creatinine 1.2 mg/dL (0.8-1.3) 02/24/20 11:14 Estimated GFR > 60 ml/min 02/24/20 11:14 BUN/Creatinine Ratio 18 % 02/24/20 11:14 Glucose 94 mg/dL (75-100) 02/24/20 11:14 POC Glucose 79 (70-105) 02/14/20 08:25 Hemoglobin A1c 5.4 % (4-6) 02/06/20 04:58 Calcium 9.6 mg/dL (8.4-10.2) 02/24/20 11:14 Phosphorus 3.30 mg/dL (2.5-4.5) 02/19/20 05:41 Magnesium 1.70 mg/dL (1.7-2.3) 02/19/20 05:41 Ferritin 367.4 ng/mL (30.0-300.0) H 02/24/20 11:14 Total Bilirubin 0.50 mg/dL (0.1-1.2) 02/24/20 11:14 Direct Bilirubin 0.3 mg/dL (0-0.2) H 02/05/20 17:51 Indirect Bilirubin 0.5 mg/dL 02/05/20 17:51 AST 70 units/L (5-40) H 02/24/20 11:14 ALT 60 units/L (7-56) H 02/24/20 11:14 Alkaline Phosphatase 101 units/L (35-129) 02/24/20 11:14 Ammonia 36.0 umol/L (25-60) 02/26/20 10:33 Lactate Dehydrogenase 252 units/L (91-180) H 02/24/20 11:14 C-Reactive Protein 2.90 mg/dL (0.00-1.30) H 02/24/20 11:14 Total Protein 8.9 g/dL (6.3-8.2) H 02/24/20 11:14 Albumin 3.2 g/dL (3.9-5) L 02/24/20 11:14 Albumin/Globulin Ratio 0.6 % 02/24/20 11:14 Urine Color Yellow (Yellow) 02/05/20 17:47 Urine Turbidity Clear (Clear) 02/05/20 17:47 Urine pH 5.0 (5.0-7.0) 02/05/20 17:47 Ur Specific [place] 1.020 (1.003-1.030) 02/05/20 17:47 Urine Protein 100 mg/dl mg/dL (Negative) 02/05/20 17:47 Urine Glucose (UA) Neg mg/dL (Negative) 02/05/20 17:47 Urine Ketones 20 mg/dL (Negative) 02/05/20 17:47 Urine Blood Sm (Negative) 02/05/20 17:47 Urine Nitrite Neg (Negative) 02/05/20 17:47 Urine Bilirubin Neg (Negative) 02/05/20 17:47 Urine Urobilinogen 2.0 mg/dL (<2.0) 02/05/20 17:47 Ur Leukocyte Esterase Neg (Negative) 02/05/20 17:47 Urine WBC (Auto) 2.0 /HPF (0.0-6.0) 02/05/20 17:47 Urine RBC (Auto) 1.0 /HPF (0.0-6.0) 02/05/20 17:47 U Epithel Cells (Auto) < 1.0 /HPF (0-13.0) 02/05/20 17:47 Urine Mucus Few /HPF 02/05/20 17:47 Salicylates < 0.3 mg/dL (2.8-20.0) L 02/05/20 16:14 Urine Opiates Screen Presumptive negative 02/05/20 17:47 Urine Methadone Screen Presumptive negative 02/05/20 17:47 Acetaminophen 5.0 ug/mL (10.0-30.0) L 02/05/20 16:14 Ur Barbiturates Screen Presumptive negative 02/05/20 17:47 Ur Phencyclidine Scrn Presumptive negative 02/05/20 17:47 Ur Amphetamines Screen Presumptive negative 02/05/20 17:47 U Benzodiazepines Scrn Presumptive negative 02/05/20 17:47 Urine Cocaine Screen Presumptive negative 02/05/20 17:47 U Marijuana (THC) Screen Presumptive negative 02/05/20 17:47 Drugs of Abuse Note Disclamer 02/05/20 17:47 Plasma/Serum Alcohol < 0.01 % (0-0.07) 02/05/20 16:14 Lymph Enumerat CD4/CD8 0.35 (0.86-5.00) L 02/21/20 15:12 % CD3 Cells 83 % (57-85) 02/21/20 15:12 Absolute CD3 Count 2093 cells/uL (840-3060) 02/21/20 15:12 % CD4 Cells 22 % (30-61) L 02/21/20 15:12 Absolute CD4 Count 529 cells/uL (490-1740) 02/21/20 15:12 % CD8 Cells 61 % (12-42) H 02/21/20 15:12 Absolute CD8 Count 1499 cells/uL (180-1170) H 02/21/20 15:12 % CD19 Cells 8 % (6-29) 02/21/20 15:12 Absolute CD19 Count 194 cells/uL (110-660) 02/21/20 15:12 Coronavirus (PCR) Positive (Negative) A 02/21/20 09:00 [place]/IV: Voiding Method Condom Catheter IV Catheter Type [Right Peripheral IV Antecubital] IV Catheter Type [Right Wrist] Peripheral IV IV Catheter Type [Left Forearm INT / Saline Lock ] IV Catheter Type [Right INT / Saline Lock Forearm] IV Catheter Type [Right Hand] Peripheral IV Active Medications - Current Medications Current Medications: Generic Name Dose Route Start Last Admin Trade Name Freq PRN Reason Stop Dose Admin Acetaminophen 650 mg 02/05/20 22:45 02/21/20 11:42 Tylenol PO 650 mg Q4H PRN Administration Pain MILD(1-3)/Fever >100.5/GAMBINO Aspirin 325 mg 02/08/20 18:00 02/27/20 09:37 Aspirin PO 325 mg QDAY MICHAEL Administration Clopidogrel Bisulfate 75 mg 02/08/20 18:00 02/27/20 09:38 Plavix PO 75 mg QDAY MICHAEL Administration Dexamethasone 6 mg 02/24/20 11:00 02/27/20 09:38 Decadron IV 03/04/20 10:01 6 mg Q24HR MICHAEL Administration Emtricitabine 200 mg 02/21/20 13:00 02/27/20 09:39 Emtriva PO 200 mg QDAY MICHAEL Administration Enoxaparin Sodium 40 mg 02/21/20 22:00 02/27/20 21:05 Enoxaparin SUB-Q 40 mg QDAY@2200 MICHAEL Administration Protocol Famotidine 20 mg 02/07/20 22:00 02/27/20 21:06 Pepcid PO 20 mg BID MICHAEL Administration Fish Oil 2,000 mg 02/17/20 13:00 02/27/20 21:05 Fish Oil PO 2,000 mg BID MICHAEL Administration Folic Acid 1 mg 02/17/20 10:00 02/27/20 09:38 Folvite PO 1 mg QDAY MICHAEL Administration Labetalol HCl 10 mg 02/05/20 20:28 02/18/20 20:44 Labetalol IV 10 mg Q3HR PRN Administration Increased Blood Pressure Lorazepam 2 mg 02/21/20 11:55 02/27/20 21:05 Ativan IV 2 mg Q4H PRN Administration Agitation Melatonin 5 mg 02/17/20 22:00 02/27/20 21:05 Melatonin PO 5 mg QHS MICHAEL Administration Metoclopramide HCl 10 mg 02/05/20 22:45 Reglan IV Q6H PRN Nausea And Vomiting Metoprolol Tartrate 25 mg 02/16/20 19:43 02/27/20 21:09 Metoprolol PO 25 mg BID MICHAEL Administration Nicotine 21 mg 02/16/20 02:23 02/27/20 09:38 Habitrol TD 21 mg QDAY MICHAEL Administration Nifedipine 30 mg 02/16/20 22:00 02/27/20 21:09 Procardia Xl PO 30 mg Q12HR MICHAEL Administration Olanzapine 5 mg 02/17/20 22:00 02/27/20 21:05 Zyprexa PO 5 mg QHS MICHAEL Administration Ondansetron HCl 4 mg 02/05/20 22:45 02/10/20 01:28 Zofran IV 4 mg Q8H PRN Administration Nausea And Vomiting Oxycodone/Acetaminophen 1 tab 02/05/20 22:45 02/20/20 21:04 Percocet 5/325 PO 1 tab Q6H PRN Administration Pain, Moderate (4-6) Sodium Chloride 10 ml 02/06/20 10:00 02/28/20 03:42 Sodium Chloride Flush Syringe 10 Ml IV 10 ml BID MICHAEL Administration Sodium Chloride 10 ml 02/05/20 22:45 02/26/20 11:45 Sodium Chloride Flush Syringe 10 Ml IV 10 ml PRN PRN Administration LINE FLUSH Tenofovir Disoproxil Fumarate 300 mg 02/21/20 13:00 02/27/20 09:41 Viread PO 300 mg QDAY MICHAEL Administration Thiamine HCl 100 mg 02/17/20 10:00 02/27/20 09:38 Vitamin B-1 PO 100 mg QDAY MICHAEL Administration Zolpidem Tartrate 5 mg 02/17/20 22:00 02/27/20 21:05 Ambien PO 5 mg QHS MICHAEL Administration Nutrition/Malnutrition Assess - Dietary Evaluation Nutrition/Malnutrition Findings: Nutrition Notes Start: 02/12/20 11:26 Freq: Status: Active Protocol: Document 02/26/20 12:09 LM (Rec: 02/26/20 12:17 LM [id number]) Nutrition Notes Initial or Follow up Reassessment Current Diagnosis Hypertension,Hyperlipidemia Other Pertinent Diagnosis ETOH withdrawals, HIV, foot fracture Current Diet Cardiac Labs/Tests K 3.5 BUN 22 Pertinent Medications Folic acid Thiamine Fish oil Decadron Height 6 ft 1 in Weight 68.2 kg [place] Body Weight (kg) 83.63 BMI 19.8 Weight change and time frame Wt change noted Subjective/Other Information RN stated pt did not eat breakfast but usually eats lunch and dinner. Pt has not yet received lunch at time of call. Burn Absent Trauma Absent GI Symptoms None Usual Diet at Home Meals on Wheels Current % PO Negligible Minimum of two criteria No physical signs of malnutrition #2 Nutrition Diagnosis Inadequate oral intake Diagnosis Progress(for reassessment Continues documentation) #1 Nutrition Diagnosis Food and nutrition-related knowledge deficit,Other: ( Specify in comment below) Diagnosis Progress(for reassessment Continues documentation) Is patient on ventilator? No Is Patient Ambulatory and/or Out of Bed No REE-([place] Jeor-confined to bed) 0721.752 Calculation Used for Recommendations [place] Je[place] Additional Notes Pro: 70-88 g (0.8-1 g/kg) Fluid: 1ml/kcal Nutrition Intervention Change Diet Order: Regular Add Supplement/Snack (indicate name/kcal Ensure Enlive Daily /protein ) Provides kCal: 350 Provides Protein (gm) 20 Goal #1 Pt will meet at least 75% of energy and protein needs. Anticipated Discharge Needs: Heart healthy diet Follow-Up By: 03/01/20 Additional Comments F/U for PO/ONS intakes, wt
[2020-02-28] MEDS: METOPROLOL TARTRATE 25 MG TAB PO SCH ×2 (09:04→21:44)
[2020-02-28] MEDS: THIAMINE 100 MG TAB PO SCH (09:05)
[2020-02-28] MEDS: CLOPIDOGREL 75 MG TAB PO SCH (09:05)
[2020-02-28] MEDS: OMEGA-3 FATTY ACIDS/FISH OIL 1 GRAM CAP PO SCH ×2 (09:05→21:44)
[2020-02-28] MEDS: ASPIRIN 325 MG TAB PO SCH (09:05)
[2020-02-28] MEDS: FAMOTIDINE 20 MG TAB PO SCH ×2 (09:05→21:44)
[2020-02-28] MEDS: NIFEdipine XL 30 MG TAB PO SCH ×2 (09:05→21:44)
[2020-02-28] MEDS: FOLIC ACID 1 MG TAB PO SCH (09:06)
[2020-02-28] MEDS: NICOTINE 21 MG/24 HR PATCH TD SCH (09:06)
[2020-02-28] MEDS: dexAMETHasone 4 MG/ML VIAL IV SCH (09:06)
[2020-02-28] MEDS: DOLUTEGRAVIR 50 MG TAB PO SCH (09:07)
[2020-02-28] MEDS: EMTRICITABINE 200 MG CAP PO SCH (09:08)
[2020-02-28] MEDS: TENOFOVIR 300 MG TAB PO SCH (09:09)
[2020-02-28] MEDS: LORazepam 2 MG/ML VIAL IV PRN ×3 (12:43→20:43)
[2020-02-28] MEDS ORDERED: WATER FOR INJ Sterile (PF) 10 ML ONE (21:39)
[2020-02-28] MEDS: ENOXAPARIN 40 MG/0.4 ML INJ SUB-Q SCH (21:43)
[2020-02-28] MEDS: MELATONIN 5 MG TAB PO SCH (21:44)
[2020-02-28] MEDS: ZOLPIDEM 5 MG TAB PO SCH (21:44)
[2020-02-28] MEDS ORDERED: ZIPRASIDONE MESYLATE 20 MG VIAL IM ONE (22:00)
[2020-02-29] MEDS: LORazepam 2 MG/ML VIAL IV PRN ×2 (05:19→14:27)
--- NOTE | 2020-02-29 08:50 | Progress Note ---
Assessment and Plan Assessment and plan: --COVID-19 test positive; 02/21/2020 Contact and droplet isolation precautions, --Covid positive patient ; no indication for remdesivir dexamethasone started today 02/24/2020 ID following, follow COVID-19 protocols --Elevated D-dimers; CTA chest negative for PE Lower extremity venous Doppler negative for DVT --HIV/AIDS Continue Truvada and dolutegravir. F/u HIV PCR and CD4 count Continue Ceftriaxone for now Monitor mentation consider further brain imaging if no better. --Left foot wounds; wound care consulted --Febrile illness; afebrile today Follow-up urine cultures, blood cultures, Chest x-ray no acute abnormalities --Acute toxic metabolic encephalopathy; Alcohol withdrawal symptoms present on admission , now off CIWA protocol Psych evaluated, on Zyprexa Mild improvement of symptoms, continues to be agitated CT head negative,Consulted neurology, possible MRI --Chronic alcohol use; Thiamine folic acid, DC IV fluids --Fracture metatarsal left foot closed; evaluated by Ortho Multiple metatarsal fractures involving 2 through 5 with minimal displacement No surgical intervention needed, supportive care --Hypertension urgency; present on admission Now well controlled ,continue current antihypertensives And as needed medications --Moderate malnutrition/hypoalbuminemia; Nutrition supplements, supportive care Consult dietitian --DVT prophylaxis;Lovenox --Restraint for safety --DC planning per case management We will closely monitor the patient and adjust the management as needed Plan of care reviewed with the patient's nurse, case management 02/10/2020. Continue CIWA protocol. Supportive care. 02/11/2020. Patient CIWA score is approximately 8. Patient still requiring restraints for agitation. Continue CIWA protocol 02/12/2020. Patient remains agitated requiring restraints. Continue CIWA protocol. PT evaluation. 02/13/2020. Physical therapy recommends rolling walker with home health PT. 02/14/2020. Nurse reports CIWA score of 10. Continue CIWA protocol. 02/15/20; patient remains confused, with alcohol withdrawal symptoms, on CIWA protocol 02/17/20; psych evaluation and recommendations noted and appreciated We will DC CIWA protocol, continue psych medications, Ativan as needed for agitation 02/18/2020; continue current management, discharge planning per case management 02/18; patient spiked fever of 102 F, cultures blood urine sent, chest x-ray requested 02/19; chest x-ray negative for acute abnormality, continues to have fever today 101.7 F Since patient has multiple risk factors like HIV, chronic alcohol use, we will rule out COVID-19 Placed isolation, Harry PCR sent, consulted ID 02/20; patient has low-grade fever, on empiric antibiotics, follow cultures, ID consulted Awaiting harry PCR test report, discussed with ID, restraint for safety, patient is transferred to [facility]/Covid unit 02/22/2020; COVID-19 test positive patient is more alert and awake today, ID evaluation noted and appreciated 02/23; wound care consulted, worsening lethargy ,consult neurologist, possible MRI if indicated 02/24' neurology consulted for worsening lethargy 02/26/2020. Neurology recommends MRI of brain with and without ROSAURA because Covid-19 can cause encephalopathy and white matter changes which cannot be seen by regular CAT scan of the brain. Follow-up EEG to evaluate subclinical seizu res. Follow-up ammonia level to rule out hepatic encephalopathy. 02/27/2020. MRI of the brain with and without contrast ordered. Ammonia level within normal limits. Follow-up EEG to evaluate subclinical seizures. Continue dexamethasone 6 mg IV given mild hypoxia for total of 10 days. Conservative management for crush injury to the left foot. 02/28/2020. Await MRI brain and EEG for further evaluation. Continue dexamethasone given hypoxia. Neurology and ID following. Continue retrovirals for HIV. Obtain exercise pulse oximetry when patient stable and cooperative. 02/29/2020. Await MRI brain and EEG for further evaluation per neurology recommendations. Continue dexamethasone given hypoxia. Neurology and ID following. Continue retrovirals for HIV. Obtain exercise pulse oximetry when patient stable and cooperative. History Interval history: No new issues overnight. Hospitalist Physical - Constitutional Vitals: Temp Pulse Resp BP Pulse Ox 98.5 F 83 18 132/88 94 02/28/20 21:06 02/28/20 21:44 02/28/20 21:06 02/28/20 21:44 02/28/20 21:06 General appearance: Present: no acute distress, well-nourished, other (Patient is lethargic, responds appropriately intermittently) - EENT Eyes: Present: PERRL, EOM intact ENT: hearing intact, clear oral mucosa, dentition normal - Neck Neck: Present: supple, normal ROM - Respiratory Respiratory effort: normal Respiratory: bilateral: CTA - Cardiovascular Rhythm: regular Heart Sounds: Present: S1 & S2. Absent: gallop, rub - Extremities Extremities: no ischemia, No edema, Full ROM - Abdominal General gastrointestinal: soft, non-tender, non-distended, normal bowel sounds - Integumentary Integumentary: Present: clear, warm, dry - Neurologic Neurologic: CNII-XII intact, moves all extremities Results - Labs CBC & Chem 7: 02/21/20 07:46 02/24/20 11:14 Labs: Laboratory Last Values WBC 5.7 K/mm3 (4.5-11.0) 02/21/20 07:46 RBC 5.36 M/mm3 (3.65-5.03) H 02/21/20 07:46 Hgb 12.9 gm/dl (11.8-15.2) 02/21/20 07:46 Hct 39.8 % (35.5-45.6) 02/21/20 07:46 MCV 74 fl (84-94) L 02/21/20 07:46 MCH 24 pg (28-32) L 02/21/20 07:46 MCHC 32 % (32-34) 02/21/20 07:46 RDW 21.8 % (13.2-15.2) H 02/21/20 07:46 Plt Count 227 K/mm3 (140-440) 02/21/20 07:46 Lymph % (Auto) 49.8 % (13.4-35.0) H 02/21/20 07:46 White % (Auto) 9.8 % (0.0-7.3) H 02/21/20 07:46 Eos % (Auto) 0.1 % (0.0-4.3) 02/21/20 07:46 Baso % (Auto) 1.2 % (0.0-1.8) 02/21/20 07:46 Lymph # (Auto) 2.8 K/mm3 (1.2-5.4) 02/21/20 07:46 White # (Auto) 0.6 K/mm3 (0.0-0.8) 02/21/20 07:46 Eos # (Auto) 0.0 K/mm3 (0.0-0.4) 02/21/20 07:46 Baso # (Auto) 0.1 K/mm3 (0.0-0.1) 02/21/20 07:46 Add Manual Diff Complete 02/05/20 16:14 Total Counted 100 02/05/20 16:14 Seg Neutrophils % 39.1 % (40.0-70.0) L 02/21/20 07:46 Seg Neuts % (Manual) 58.0 % (40.0-70.0) 02/05/20 16:14 Band Neutrophils % 0 % 02/05/20 16:14 Lymphocytes % (Manual) 33.0 % (13.4-35.0) 02/05/20 16:14 Reactive Lymphs % (Man) 0 % 02/05/20 16:14 Monocytes % (Manual) 8.0 % (0.0-7.3) H 02/05/20 16:14 Eosinophils % (Manual) 1.0 % (0.0-4.3) 02/05/20 16:14 Basophils % (Manual) 0 % (0.0-1.8) 02/05/20 16:14 Metamyelocytes % 0 % 02/05/20 16:14 Myelocytes % 0 % 02/05/20 16:14 Promyelocytes % 0 % 02/05/20 16:14 Blast Cells % 0 % 02/05/20 16:14 Nucleated RBC % Not Reportable 02/05/20 16:14 Seg Neutrophils # 2.2 K/mm3 (1.8-7.7) 02/21/20 07:46 Seg Neutrophils # Man 2.8 K/mm3 (1.8-7.7) 02/05/20 16:14 Band Neutrophils # 0.0 K/mm3 02/05/20 16:14 Abs Lymphs (Manual) 2512 cells/uL (850-3900) 02/21/20 15:12 Lymphocytes # (Manual) 1.6 K/mm3 (1.2-5.4) 02/05/20 16:14 Abs React Lymphs (Man) 0.0 K/mm3 02/05/20 16:14 Monocytes # (Manual) 0.4 K/mm3 (0.0-0.8) 02/05/20 16:14 Eosinophils # (Manual) 0.0 K/mm3 (0.0-0.4) 02/05/20 16:14 Basophils # (Manual) 0.0 K/mm3 (0.0-0.1) 02/05/20 16:14 Metamyelocytes # 0.0 K/mm3 02/05/20 16:14 Myelocytes # 0.0 K/mm3 02/05/20 16:14 Promyelocytes # 0.0 K/mm3 02/05/20 16:14 Blast Cells # 0.0 K/mm3 02/05/20 16:14 WBC Morphology Not Reportable 02/05/20 16:14 Hypersegmented Neuts Not Reportable 02/05/20 16:14 Hyposegmented Neuts Not Reportable 02/05/20 16:14 Hypogranular Neuts Not Reportable 02/05/20 16:14 Smudge Cells Not Reportable 02/05/20 16:14 Toxic Granulation Not Reportable 02/05/20 16:14 Toxic Vacuolation Not Reportable 02/05/20 16:14 Dohle Bodies Not Reportable 02/05/20 16:14 Pelger-Huet Anomaly Not Reportable 02/05/20 16:14 Esperanza Rods Not Reportable 02/05/20 16:14 Platelet Estimate Not Reportable 02/05/20 16:14 Clumped Platelets Few 02/05/20 16:14 Plt Clumps, EDTA Not Reportable 02/05/20 16:14 Large Platelets Not Reportable 02/05/20 16:14 Giant Platelets Not Reportable 02/05/20 16:14 Platelet Satelliting Not Reportable 02/05/20 16:14 Plt Morphology Comment Not Reportable 02/05/20 16:14 RBC Morphology Not Reportable 02/05/20 16:14 Dimorphic RBCs Not Reportable 02/05/20 16:14 Polychromasia Not Reportable 02/05/20 16:14 Hypochromasia 1+ 02/05/20 16:14 Poikilocytosis Not Reportable 02/05/20 16:14 Anisocytosis 1+ 02/05/20 16:14 Microcytosis Few 02/05/20 16:14 Macrocytosis Not Reportable 02/05/20 16:14 Spherocytes Not Reportable 02/05/20 16:14 Pappenheimer Bodies Not Reportable 02/05/20 16:14 Sickle Cells Not Reportable 02/05/20 16:14 Target Cells Not Reportable 02/05/20 16:14 Tear Drop Cells Not Reportable 02/05/20 16:14 Ovalocytes Not Reportable 02/05/20 16:14 Helmet Cells Not Reportable 02/05/20 16:14 Sargent-Guthrie Bodies Not Reportable 02/05/20 16:14 [place] Rings Not Reportable 02/05/20 16:14 Master Cells Not Reportable 02/05/20 16:14 Bite Cells Not Reportable 02/05/20 16:14 Crenated Cell Not Reportable 02/05/20 16:14 Elliptocytes Not Reportable 02/05/20 16:14 Acanthocytes (Spur) Not Reportable 02/05/20 16:14 Rouleaux Not Reportable 02/05/20 16:14 Hemoglobin C Crystals Not Reportable 02/05/20 16:14 Schistocytes Not Reportable 02/05/20 16:14 Malaria parasites Not Reportable 02/05/20 16:14 Bobby Bodies Not Reportable 02/05/20 16:14 Hem Pathologist Commnt No 02/05/20 16:14 D-Dimer 545.57 ng/mlDDU (0-234) H 02/24/20 11:14 Sodium 142 mmol/L (137-145) 02/24/20 11:14 Potassium 3.5 mmol/L (3.6-5.0) L 02/24/20 11:14 Chloride 107.4 mmol/L (98-107) H 02/24/20 11:14 Carbon Dioxide 22 mmol/L (22-30) 02/24/20 11:14 Anion Gap 16 mmol/L 02/24/20 11:14 BUN 22 mg/dL (9-20) H 02/24/20 11:14 Creatinine 1.2 mg/dL (0.8-1.3) 02/24/20 11:14 Estimated GFR > 60 ml/min 02/24/20 11:14 BUN/Creatinine Ratio 18 % 02/24/20 11:14 Glucose 94 mg/dL (75-100) 02/24/20 11:14 POC Glucose 79 (70-105) 02/14/20 08:25 Hemoglobin A1c 5.4 % (4-6) 02/06/20 04:58 Calcium 9.6 mg/dL (8.4-10.2) 02/24/20 11:14 Phosphorus 3.30 mg/dL (2.5-4.5) 02/19/20 05:41 Magnesium 1.70 mg/dL (1.7-2.3) 02/19/20 05:41 Ferritin 367.4 ng/mL (30.0-300.0) H 02/24/20 11:14 Total Bilirubin 0.50 mg/dL (0.1-1.2) 02/24/20 11:14 Direct Bilirubin 0.3 mg/dL (0-0.2) H 02/05/20 17:51 Indirect Bilirubin 0.5 mg/dL 02/05/20 17:51 AST 70 units/L (5-40) H 02/24/20 11:14 ALT 60 units/L (7-56) H 02/24/20 11:14 Alkaline Phosphatase 101 units/L (35-129) 02/24/20 11:14 Ammonia 36.0 umol/L (25-60) 02/26/20 10:33 Lactate Dehydrogenase 252 units/L (91-180) H 02/24/20 11:14 C-Reactive Protein 2.90 mg/dL (0.00-1.30) H 02/24/20 11:14 Total Protein 8.9 g/dL (6.3-8.2) H 02/24/20 11:14 Albumin 3.2 g/dL (3.9-5) L 02/24/20 11:14 Albumin/Globulin Ratio 0.6 % 02/24/20 11:14 Urine Color Yellow (Yellow) 02/05/20 17:47 Urine Turbidity Clear (Clear) 02/05/20 17:47 Urine pH 5.0 (5.0-7.0) 02/05/20 17:47 Ur Specific [place] 1.020 (1.003-1.030) 02/05/20 17:47 Urine Protein 100 mg/dl mg/dL (Negative) 02/05/20 17:47 Urine Glucose (UA) Neg mg/dL (Negative) 02/05/20 17:47 Urine Ketones 20 mg/dL (Negative) 02/05/20 17:47 Urine Blood Sm (Negative) 02/05/20 17:47 Urine Nitrite Neg (Negative) 02/05/20 17:47 Urine Bilirubin Neg (Negative) 02/05/20 17:47 Urine Urobilinogen 2.0 mg/dL (<2.0) 02/05/20 17:47 Ur Leukocyte Esterase Neg (Negative) 02/05/20 17:47 Urine WBC (Auto) 2.0 /HPF (0.0-6.0) 02/05/20 17:47 Urine RBC (Auto) 1.0 /HPF (0.0-6.0) 02/05/20 17:47 U Epithel Cells (Auto) < 1.0 /HPF (0-13.0) 02/05/20 17:47 Urine Mucus Few /HPF 02/05/20 17:47 Salicylates < 0.3 mg/dL (2.8-20.0) L 02/05/20 16:14 Urine Opiates Screen Presumptive negative 02/05/20 17:47 Urine Methadone Screen Presumptive negative 02/05/20 17:47 Acetaminophen 5.0 ug/mL (10.0-30.0) L 02/05/20 16:14 Ur Barbiturates Screen Presumptive negative 02/05/20 17:47 Ur Phencyclidine Scrn Presumptive negative 02/05/20 17:47 Ur Amphetamines Screen Presumptive negative 02/05/20 17:47 U Benzodiazepines Scrn Presumptive negative 02/05/20 17:47 Urine Cocaine Screen Presumptive negative 02/05/20 17:47 U Marijuana (THC) Screen Presumptive negative 02/05/20 17:47 Drugs of Abuse Note Disclamer 02/05/20 17:47 Plasma/Serum Alcohol < 0.01 % (0-0.07) 02/05/20 16:14 Lymph Enumerat CD4/CD8 0.35 (0.86-5.00) L 02/21/20 15:12 % CD3 Cells 83 % (57-85) 02/21/20 15:12 Absolute CD3 Count 2093 cells/uL (840-3060) 02/21/20 15:12 % CD4 Cells 22 % (30-61) L 02/21/20 15:12 Absolute CD4 Count 529 cells/uL (490-1740) 02/21/20 15:12 % CD8 Cells 61 % (12-42) H 02/21/20 15:12 Absolute CD8 Count 1499 cells/uL (180-1170) H 02/21/20 15:12 % CD19 Cells 8 % (6-29) 02/21/20 15:12 Absolute CD19 Count 194 cells/uL (110-660) 02/21/20 15:12 Coronavirus (PCR) Positive (Negative) A 02/21/20 09:00 [place]/IV: Voiding Method Condom Catheter IV Catheter Type [Right Peripheral IV Antecubital] IV Catheter Type [Right Wrist] Peripheral IV IV Catheter Type [Left Forearm INT / Saline Lock ] IV Catheter Type [Right INT / Saline Lock Forearm] IV Catheter Type [Right Hand] Peripheral IV Active Medications - Current Medications Current Medications: Generic Name Dose Route Start Last Admin Trade Name Freq PRN Reason Stop Dose Admin Acetaminophen 650 mg 02/05/20 22:45 02/21/20 11:42 Tylenol PO 650 mg Q4H PRN Administration Pain MILD(1-3)/Fever >100.5/GAMBINO Aspirin 325 mg 02/08/20 18:00 02/28/20 09:05 Aspirin PO 325 mg QDAY MICHAEL Administration Clopidogrel Bisulfate 75 mg 02/08/20 18:00 02/28/20 09:05 Plavix PO 75 mg QDAY MICHAEL Administration Dexamethasone 6 mg 02/24/20 11:00 02/28/20 09:06 Decadron IV 03/04/20 10:01 6 mg Q24HR MICHAEL Administration Emtricitabine 200 mg 02/21/20 13:00 02/28/20 09:08 Emtriva PO 200 mg QDAY MICHAEL Administration Enoxaparin Sodium 40 mg 02/21/20 22:00 02/28/20 21:43 Enoxaparin SUB-Q 40 mg QDAY@2200 MICHAEL Administration Protocol Famotidine 20 mg 02/07/20 22:00 02/28/20 21:44 Pepcid PO 20 mg BID MICHAEL Administration Fish Oil 2,000 mg 02/17/20 13:00 02/28/20 21:44 Fish Oil PO 2,000 mg BID MICHAEL Administration Folic Acid 1 mg 02/17/20 10:00 02/28/20 09:06 Folvite PO 1 mg QDAY MICHAEL Administration Labetalol HCl 10 mg 02/05/20 20:28 02/18/20 20:44 Labetalol IV 10 mg Q3HR PRN Administration Increased Blood Pressure Lorazepam 2 mg 02/21/20 11:55 02/29/20 05:19 Ativan IV 2 mg Q4H PRN Administration Agitation Melatonin 5 mg 02/17/20 22:00 02/28/20 21:44 Melatonin PO 5 mg QHS MICHAEL Administration Metoclopramide HCl 10 mg 02/05/20 22:45 Reglan IV Q6H PRN Nausea And Vomiting Metoprolol Tartrate 25 mg 02/16/20 19:43 02/28/20 21:44 Metoprolol PO 25 mg BID MICHAEL Administration Nicotine 21 mg 02/16/20 02:23 02/28/20 09:06 Habitrol TD 21 mg QDAY MICHAEL Administration Nifedipine 30 mg 02/16/20 22:00 02/28/20 21:44 Procardia Xl PO 30 mg Q12HR MICHAEL Administration Olanzapine 5 mg 02/17/20 22:00 02/28/20 21:44 Zyprexa PO 5 mg QHS MICHAEL Administration Ondansetron HCl 4 mg 02/05/20 22:45 02/10/20 01:28 Zofran IV 4 mg Q8H PRN Administration Nausea And Vomiting Oxycodone/Acetaminophen 1 tab 02/05/20 22:45 02/20/20 21:04 Percocet 5/325 PO 1 tab Q6H PRN Administration Pain, Moderate (4-6) Sodium Chloride 10 ml 02/06/20 10:00 02/28/20 21:45 Sodium Chloride Flush Syringe 10 Ml IV 10 ml BID MICHAEL Administration Sodium Chloride 10 ml 02/05/20 22:45 02/26/20 11:45 Sodium Chloride Flush Syringe 10 Ml IV 10 ml PRN PRN Administration LINE FLUSH Tenofovir Disoproxil Fumarate 300 mg 02/21/20 13:00 02/28/20 09:09 Viread PO 300 mg QDAY MICHAEL Administration Thiamine HCl 100 mg 02/17/20 10:00 02/28/20 09:05 Vitamin B-1 PO 100 mg QDAY MICHAEL Administration Zolpidem Tartrate 5 mg 02/17/20 22:00 02/28/20 21:44 Ambien PO 5 mg QHS MICHAEL Administration Nutrition/Malnutrition Assess - Dietary Evaluation Nutrition/Malnutrition Findings: Nutrition Notes Start: 02/12/20 11:26 Freq: Status: Active Protocol: Document 02/26/20 12:09 LM (Rec: 02/26/20 12:17 LM [id number]) Nutrition Notes Initial or Follow up Reassessment Current Diagnosis Hypertension,Hyperlipidemia Other Pertinent Diagnosis ETOH withdrawals, HIV, foot fracture Current Diet Cardiac Labs/Tests K 3.5 BUN 22 Pertinent Medications Folic acid Thiamine Fish oil Decadron Height 6 ft 1 in Weight 68.2 kg [place] Body Weight (kg) 83.63 BMI 19.8 Weight change and time frame Wt change noted Subjective/Other Information RN stated pt did not eat breakfast but usually eats lunch and dinner. Pt has not yet received lunch at time of call. Burn Absent Trauma Absent GI Symptoms None Usual Diet at Home Meals on Wheels Current % PO Negligible Minimum of two criteria No physical signs of malnutrition #2 Nutrition Diagnosis Inadequate oral intake Diagnosis Progress(for reassessment Continues documentation) #1 Nutrition Diagnosis Food and nutrition-related knowledge deficit,Other: ( Specify in comment below) Diagnosis Progress(for reassessment Continues documentation) Is patient on ventilator? No Is Patient Ambulatory and/or Out of Bed No REE-([facility]-confined to bed) 2771.606 Calculation Used for Recommendations [facility] Additional Notes Pro: 70-88 g (0.8-1 g/kg) Fluid: 1ml/kcal Nutrition Intervention Change Diet Order: Regular Add Supplement/Snack (indicate name/kcal Ensure Enlive Daily /protein ) Provides kCal: 350 Provides Protein (gm) 20 Goal #1 Pt will meet at least 75% of energy and protein needs. Anticipated Discharge Needs: Heart healthy diet Follow-Up By: 03/01/20 Additional Comments F/U for PO/ONS intakes, wt
[2020-02-29] MEDS: NICOTINE 21 MG/24 HR PATCH TD SCH (09:44)
[2020-02-29] MEDS: ASPIRIN 325 MG TAB PO SCH (09:45)
[2020-02-29] MEDS: OMEGA-3 FATTY ACIDS/FISH OIL 1 GRAM CAP PO SCH ×2 (09:45→23:07)
[2020-02-29] MEDS: FAMOTIDINE 20 MG TAB PO SCH ×2 (09:45→23:07)
[2020-02-29] MEDS: CLOPIDOGREL 75 MG TAB PO SCH (09:45)
[2020-02-29] MEDS: METOPROLOL TARTRATE 25 MG TAB PO SCH ×2 (09:46→23:07)
[2020-02-29] MEDS: NIFEdipine XL 30 MG TAB PO SCH ×2 (09:46→23:07)
[2020-02-29] MEDS: THIAMINE 100 MG TAB PO SCH (09:46)
[2020-02-29] MEDS: DOLUTEGRAVIR 50 MG TAB PO SCH (09:46)
[2020-02-29] MEDS: EMTRICITABINE 200 MG CAP PO SCH (09:47)
[2020-02-29] MEDS: FOLIC ACID 1 MG TAB PO SCH (09:49)
[2020-02-29] MEDS: TENOFOVIR 300 MG TAB PO SCH (09:50)
[2020-02-29] MEDS: LORazepam 2 MG/ML VIAL IM PRN (10:21)
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
[2020-02-29] MEDS: dexAMETHasone 4 MG/ML VIAL IV SCH (13:12)
[2020-02-29 19:08] LABS: Basophils % (Auto) 0.1 % (0.0-1.8); Eosinophils % (Auto) 0.1 % (0.0-4.3); Lymphocytes # (Auto) 1.4 K/mm3 (1.2-5.4); Lymphocytes % (Auto) 32.3 % (13.4-35.0); Mean Corpuscular HGB Conc 31 % (32-34); Mean Corpuscular Volume 77 fl (84-94); Monocytes # (Auto) 0.2 K/mm3 (0.0-0.8); Monocytes % (Auto) 3.5 % (0.0-7.3)
[2020-02-29 19:20] LABS: Hematocrit 43.9 % (35.5-45.6); Hemoglobin 13.6 gm/dl (11.8-15.2); Red Cell Distribution Width 21.9 % (13.2-15.2)
[2020-02-29 19:30] LABS: BUN/Creatinine Ratio 23; Blood Urea Nitrogen 21 mg/dL (9-20); Calcium 10.3 mg/dL (8.4-10.2); Hemolysis Index 21
[2020-02-29 20:32] LABS: Platelet Count 170 K/mm3 (140-440)
[2020-02-29] MEDS: ENOXAPARIN 40 MG/0.4 ML INJ SUB-Q SCH (23:07)
[2020-02-29] MEDS: ACETAMINOPHEN 325 MG TAB PO PRN (23:07)
[2020-02-29] MEDS: ZOLPIDEM 5 MG TAB PO SCH (23:08)
[2020-02-29] MEDS: MELATONIN 5 MG TAB PO SCH (23:08)
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
--- NOTE | 2020-03-01 08:40 | Progress Note ---
Assessment and Plan Assessment and plan: --COVID-19 test positive; 02/21/2020 Contact and droplet isolation precautions, --Covid positive patient ; no indication for remdesivir dexamethasone started today 02/24/2020 ID following, follow COVID-19 protocols --Elevated D-dimers; CTA chest negative for PE Lower extremity venous Doppler negative for DVT --HIV/AIDS Continue Truvada and dolutegravir. F/u HIV PCR and CD4 count Continue Ceftriaxone for now Monitor mentation consider further brain imaging if no better. --Left foot wounds; wound care consulted --Febrile illness; afebrile today Follow-up urine cultures, blood cultures, Chest x-ray no acute abnormalities --Acute toxic metabolic encephalopathy; Alcohol withdrawal symptoms present on admission , now off CIWA protocol Psych evaluated, on Zyprexa Mild improvement of symptoms, continues to be agitated CT head negative,Consulted neurology, possible MRI --Chronic alcohol use; Thiamine folic acid, DC IV fluids --Fracture metatarsal left foot closed; evaluated by Ortho Multiple metatarsal fractures involving 2 through 5 with minimal displacement No surgical intervention needed, supportive care --Hypertension urgency; present on admission Now well controlled ,continue current antihypertensives And as needed medications --Moderate malnutrition/hypoalbuminemia; Nutrition supplements, supportive care Consult dietitian --DVT prophylaxis;Lovenox --Restraint for safety --DC planning per case management We will closely monitor the patient and adjust the management as needed Plan of care reviewed with the patient's nurse, case management 02/10/2020. Continue CIWA protocol. Supportive care. 02/11/2020. Patient CIWA score is approximately 8. Patient still requiring restraints for agitation. Continue CIWA protocol 02/12/2020. Patient remains agitated requiring restraints. Continue CIWA protocol. PT evaluation. 02/13/2020. Physical therapy recommends rolling walker with home health PT. 02/14/2020. Nurse reports CIWA score of 10. Continue CIWA protocol. 02/15/20; patient remains confused, with alcohol withdrawal symptoms, on CIWA protocol 02/17/20; psych evaluation and recommendations noted and appreciated We will DC CIWA protocol, continue psych medications, Ativan as needed for agitation 02/18/2020; continue current management, discharge planning per case management 02/18; patient spiked fever of 102 F, cultures blood urine sent, chest x-ray requested 02/19; chest x-ray negative for acute abnormality, continues to have fever today 101.7 F Since patient has multiple risk factors like HIV, chronic alcohol use, we will rule out COVID-19 Placed isolation, Harry PCR sent, consulted ID 02/20; patient has low-grade fever, on empiric antibiotics, follow cultures, ID consulted Awaiting harry PCR test report, discussed with ID, restraint for safety, [facility] 02/22/2020; COVID-19 test positive patient is more alert and awake today, ID evaluation noted and appreciated 02/23; wound care consulted, worsening lethargy ,consult neurologist, possible MRI if indicated 02/24' neurology consulted for worsening lethargy 02/26/2020. Neurology recommends MRI of brain with and without ROSAURA because Covid-19 can cause encephalopathy and white matter changes which cannot be seen by regular CAT scan of the brain. Follow-up EEG to evaluate subclinical seizu res. Follow-up ammonia level to rule out hepatic encephalopathy. 02/27/2020. MRI of the brain with and without contrast ordered. Ammonia level within normal limits. Follow-up EEG to evaluate subclinical seizures. Continue dexamethasone 6 mg IV given mild hypoxia for total of 10 days. Conservative management for crush injury to the left foot. 02/28/2020. Await MRI brain and EEG for further evaluation. Continue dexamethasone given hypoxia. Neurology and ID following. Continue retrovirals for HIV. Obtain exercise pulse oximetry when patient stable and cooperative. 02/29/2020. Await MRI brain and EEG for further evaluation per neurology recommendations. Continue dexamethasone given hypoxia. Neurology and ID following. Continue retrovirals for HIV. Obtain exercise pulse oximetry when patient stable and cooperative. 03/01/2020; MRI was not done yesterday because the patient was trying to get out of the bed, follow-up EEG. Obtain exercise pulse oximetry when patient stable and cooperative. Case management to find a place for him but patient is very confused and on restraints. History Interval history: I have seen and evaluated this patient at the bedside Patient is very confused He cannot give any meaningful history He tried to get out of the bed Patient has a sitter Hospitalist Physical - Physical exam Narrative exam: Not in cardiopulmonary distress. The patient appeared well nourished and normally developed. Vital signs as documented. Head exam is unremarkable. No scleral icterus . Neck is without jugular venous distension, thyromegaly, or carotid bruits. Lungs are clear to auscultation. Cardiac exam reveals regular rate and Rhythm. Abdominal exam reveals normal bowel sounds, nontender, no organomegaly. Extremities there is dressing/cast on the left leg. RN PSYCHIATRIC: Confused, agitated, trying to get out of the bed. Patient is on restraints - Constitutional Vitals: Temp Pulse Resp BP Pulse Ox 97.6 F 97 H 20 141/67 94 03/01/20 04:13 03/01/20 04:13 03/01/20 04:13 03/01/20 04:13 03/01/20 04:13 General appearance: Present: no acute distress, well-nourished, other (Patient is lethargic, responds appropriately intermittently) Results - Labs CBC & Chem 7: 02/29/20 18:20 02/29/20 18:20 Labs: Laboratory Last Values WBC 4.4 K/mm3 (4.5-11.0) L 02/29/20 18:20 RBC 5.70 M/mm3 (3.65-5.03) H 02/29/20 18:20 Hgb 13.6 gm/dl (11.8-15.2) 02/29/20 18:20 Hct 43.9 % (35.5-45.6) 02/29/20 18:20 MCV 77 fl (84-94) L 02/29/20 18:20 MCH 24 pg (28-32) L 02/29/20 18:20 MCHC 31 % (32-34) L 02/29/20 18:20 RDW 21.9 % (13.2-15.2) H 02/29/20 18:20 Plt Count 170 K/mm3 (140-440) 02/29/20 18:20 Lymph % (Auto) 32.3 % (13.4-35.0) 02/29/20 18:20 [place] % (Auto) 3.5 % (0.0-7.3) 02/29/20 18:20 Eos % (Auto) 0.1 % (0.0-4.3) 02/29/20 18:20 Baso % (Auto) 0.1 % (0.0-1.8) 02/29/20 18:20 Lymph # (Auto) 1.4 K/mm3 (1.2-5.4) 02/29/20 18:20 Williamson # (Auto) 0.2 K/mm3 (0.0-0.8) 02/29/20 18:20 Eos # (Auto) 0.0 K/mm3 (0.0-0.4) 02/29/20 18:20 Baso # (Auto) 0.0 K/mm3 (0.0-0.1) 02/29/20 18:20 Add Manual Diff Complete 02/05/20 16:14 Total Counted 100 02/05/20 16:14 Seg Neutrophils % 64.0 % (40.0-70.0) 02/29/20 18:20 Seg Neuts % (Manual) 58.0 % (40.0-70.0) 02/05/20 16:14 Band Neutrophils % 0 % 02/05/20 16:14 Lymphocytes % (Manual) 33.0 % (13.4-35.0) 02/05/20 16:14 Reactive Lymphs % (Man) 0 % 02/05/20 16:14 Monocytes % (Manual) 8.0 % (0.0-7.3) H 02/05/20 16:14 Eosinophils % (Manual) 1.0 % (0.0-4.3) 02/05/20 16:14 Basophils % (Manual) 0 % (0.0-1.8) 02/05/20 16:14 Metamyelocytes % 0 % 02/05/20 16:14 Myelocytes % 0 % 02/05/20 16:14 Promyelocytes % 0 % 02/05/20 16:14 Blast Cells % 0 % 02/05/20 16:14 Nucleated RBC % Not Reportable 02/05/20 16:14 Seg Neutrophils # 2.8 K/mm3 (1.8-7.7) 02/29/20 18:20 Seg Neutrophils # Man 2.8 K/mm3 (1.8-7.7) 02/05/20 16:14 Band Neutrophils # 0.0 K/mm3 02/05/20 16:14 Abs Lymphs (Manual) 2512 cells/uL (850-3900) 02/21/20 15:12 Lymphocytes # (Manual) 1.6 K/mm3 (1.2-5.4) 02/05/20 16:14 Abs React Lymphs (Man) 0.0 K/mm3 02/05/20 16:14 Monocytes # (Manual) 0.4 K/mm3 (0.0-0.8) 02/05/20 16:14 Eosinophils # (Manual) 0.0 K/mm3 (0.0-0.4) 02/05/20 16:14 Basophils # (Manual) 0.0 K/mm3 (0.0-0.1) 02/05/20 16:14 Metamyelocytes # 0.0 K/mm3 02/05/20 16:14 Myelocytes # 0.0 K/mm3 02/05/20 16:14 Promyelocytes # 0.0 K/mm3 02/05/20 16:14 Blast Cells # 0.0 K/mm3 02/05/20 16:14 WBC Morphology Not Reportable 02/05/20 16:14 Hypersegmented Neuts Not Reportable 02/05/20 16:14 Hyposegmented Neuts Not Reportable 02/05/20 16:14 Hypogranular Neuts Not Reportable 02/05/20 16:14 Smudge Cells Not Reportable 02/05/20 16:14 Toxic Granulation Not Reportable 02/05/20 16:14 Toxic Vacuolation Not Reportable 02/05/20 16:14 Dohle Bodies Not Reportable 02/05/20 16:14 Pelger-Huet Anomaly Not Reportable 02/05/20 16:14 Esperanza Rods Not Reportable 02/05/20 16:14 Platelet Estimate Not Reportable 02/05/20 16:14 Clumped Platelets Few 02/05/20 16:14 Plt Clumps, EDTA Not Reportable 02/05/20 16:14 Large Platelets Not Reportable 02/05/20 16:14 Giant Platelets Not Reportable 02/05/20 16:14 Platelet Satelliting Not Reportable 02/05/20 16:14 Plt Morphology Comment Not Reportable 02/05/20 16:14 RBC Morphology Not Reportable 02/05/20 16:14 Dimorphic RBCs Not Reportable 02/05/20 16:14 Polychromasia Not Reportable 02/05/20 16:14 Hypochromasia 1+ 02/05/20 16:14 Poikilocytosis Not Reportable 02/05/20 16:14 Anisocytosis 1+ 02/05/20 16:14 Microcytosis Few 02/05/20 16:14 Macrocytosis Not Reportable 02/05/20 16:14 Spherocytes Not Reportable 02/05/20 16:14 Pappenheimer Bodies Not Reportable 02/05/20 16:14 Sickle Cells Not Reportable 02/05/20 16:14 Target Cells Not Reportable 02/05/20 16:14 Tear Drop Cells Not Reportable 02/05/20 16:14 Ovalocytes Not Reportable 02/05/20 16:14 Helmet Cells Not Reportable 02/05/20 16:14 [place] Bodies Not Reportable 02/05/20 16:14 [place] Rings Not Reportable 02/05/20 16:14 [place] Cells Not Reportable 02/05/20 16:14 Bite Cells Not Reportable 02/05/20 16:14 Crenated Cell Not Reportable 02/05/20 16:14 Elliptocytes Not Reportable 02/05/20 16:14 Acanthocytes (Spur) Not Reportable 02/05/20 16:14 Rouleaux Not Reportable 02/05/20 16:14 Hemoglobin C Crystals Not Reportable 02/05/20 16:14 Schistocytes Not Reportable 02/05/20 16:14 Malaria parasites Not Reportable 02/05/20 16:14 Bobby Bodies Not Reportable 02/05/20 16:14 Hem Pathologist Commnt No 02/05/20 16:14 D-Dimer 545.57 ng/mlDDU (0-234) H 02/24/20 11:14 Sodium 145 mmol/L (137-145) 02/29/20 18:20 Potassium 3.5 mmol/L (3.6-5.0) L 02/29/20 18:20 Chloride 107.4 mmol/L (98-107) H 02/29/20 18:20 Carbon Dioxide 21 mmol/L (22-30) L 02/29/20 18:20 Anion Gap 20 mmol/L 02/29/20 18:20 BUN 21 mg/dL (9-20) H 02/29/20 18:20 Creatinine 0.9 mg/dL (0.8-1.3) 02/29/20 18:20 Estimated GFR > 60 ml/min 02/29/20 18:20 BUN/Creatinine Ratio 23 % 02/29/20 18:20 Glucose 111 mg/dL (75-100) H 02/29/20 18:20 POC Glucose 79 (70-105) 02/14/20 08:25 Hemoglobin A1c 5.4 % (4-6) 02/06/20 04:58 Calcium 10.3 mg/dL (8.4-10.2) H 02/29/20 18:20 Phosphorus 3.30 mg/dL (2.5-4.5) 02/19/20 05:41 Magnesium 1.70 mg/dL (1.7-2.3) 02/19/20 05:41 Ferritin 367.4 ng/mL (30.0-300.0) H 02/24/20 11:14 Total Bilirubin 0.50 mg/dL (0.1-1.2) 02/24/20 11:14 Direct Bilirubin 0.3 mg/dL (0-0.2) H 02/05/20 17:51 Indirect Bilirubin 0.5 mg/dL 02/05/20 17:51 AST 70 units/L (5-40) H 02/24/20 11:14 ALT 60 units/L (7-56) H 02/24/20 11:14 Alkaline Phosphatase 101 units/L (35-129) 02/24/20 11:14 Ammonia 36.0 umol/L (25-60) 02/26/20 10:33 Lactate Dehydrogenase 252 units/L (91-180) H 02/24/20 11:14 C-Reactive Protein 2.90 mg/dL (0.00-1.30) H 02/24/20 11:14 Total Protein 8.9 g/dL (6.3-8.2) H 02/24/20 11:14 Albumin 3.2 g/dL (3.9-5) L 02/24/20 11:14 Albumin/Globulin Ratio 0.6 % 02/24/20 11:14 Urine Color Yellow (Yellow) 02/05/20 17:47 Urine Turbidity Clear (Clear) 02/05/20 17:47 Urine pH 5.0 (5.0-7.0) 02/05/20 17:47 Ur Specific [place] 1.020 (1.003-1.030) 02/05/20 17:47 Urine Protein 100 mg/dl mg/dL (Negative) 02/05/20 17:47 Urine Glucose (UA) Neg mg/dL (Negative) 02/05/20 17:47 Urine Ketones 20 mg/dL (Negative) 02/05/20 17:47 Urine Blood Sm (Negative) 02/05/20 17:47 Urine Nitrite Neg (Negative) 02/05/20 17:47 Urine Bilirubin Neg (Negative) 02/05/20 17:47 Urine Urobilinogen 2.0 mg/dL (<2.0) 02/05/20 17:47 Ur Leukocyte Esterase Neg (Negative) 02/05/20 17:47 Urine WBC (Auto) 2.0 /HPF (0.0-6.0) 02/05/20 17:47 Urine RBC (Auto) 1.0 /HPF (0.0-6.0) 02/05/20 17:47 U Epithel Cells (Auto) < 1.0 /HPF (0-13.0) 02/05/20 17:47 Urine Mucus Few /HPF 02/05/20 17:47 Salicylates < 0.3 mg/dL (2.8-20.0) L 02/05/20 16:14 Urine Opiates Screen Presumptive negative 02/05/20 17:47 Urine Methadone Screen Presumptive negative 02/05/20 17:47 Acetaminophen 5.0 ug/mL (10.0-30.0) L 02/05/20 16:14 Ur Barbiturates Screen Presumptive negative 02/05/20 17:47 Ur Phencyclidine Scrn Presumptive negative 02/05/20 17:47 Ur Amphetamines Screen Presumptive negative 02/05/20 17:47 U Benzodiazepines Scrn Presumptive negative 02/05/20 17:47 Urine Cocaine Screen Presumptive negative 02/05/20 17:47 U Marijuana (THC) Screen Presumptive negative 02/05/20 17:47 Drugs of Abuse Note Disclamer 02/05/20 17:47 Plasma/Serum Alcohol < 0.01 % (0-0.07) 02/05/20 16:14 Lymph Enumerat CD4/CD8 0.35 (0.86-5.00) L 02/21/20 15:12 % CD3 Cells 83 % (57-85) 02/21/20 15:12 Absolute CD3 Count 2093 cells/uL (840-3060) 02/21/20 15:12 % CD4 Cells 22 % (30-61) L 02/21/20 15:12 Absolute CD4 Count 529 cells/uL (490-1740) 02/21/20 15:12 % CD8 Cells 61 % (12-42) H 02/21/20 15:12 Absolute CD8 Count 1499 cells/uL (180-1170) H 02/21/20 15:12 % CD19 Cells 8 % (6-29) 02/21/20 15:12 Absolute CD19 Count 194 cells/uL (110-660) 02/21/20 15:12 Coronavirus (PCR) Positive (Negative) A 02/21/20 09:00 [place]/IV: Voiding Method Condom Catheter IV Catheter Type [Right Upper INT / Saline Lock arm] IV Catheter Type [Right Peripheral IV Antecubital] IV Catheter Type [Right Wrist] Peripheral IV IV Catheter Type [Left Forearm INT / Saline Lock ] IV Catheter Type [Right INT / Saline Lock Forearm] IV Catheter Type [Right Hand] Peripheral IV Active Medications - Current Medications Current Medications: Generic Name Dose Route Start Last Admin Trade Name Freq PRN Reason Stop Dose Admin Acetaminophen 650 mg 02/05/20 22:45 02/29/20 23:07 Tylenol PO 650 mg Q4H PRN Administration Pain MILD(1-3)/Fever >100.5/GAMBINO Aspirin 325 mg 02/08/20 18:00 02/29/20 09:45 Aspirin PO 325 mg QDAY MICHAEL Administration Clopidogrel Bisulfate 75 mg 02/08/20 18:00 02/29/20 09:45 Plavix PO 75 mg QDAY MICHAEL Administration Dexamethasone 6 mg 02/24/20 11:00 02/29/20 13:12 Decadron IV 03/04/20 10:01 6 mg Q24HR MICHAEL Administration Emtricitabine 200 mg 02/21/20 13:00 02/29/20 09:47 Emtriva PO 200 mg QDAY MICHAEL Administration Enoxaparin Sodium 40 mg 02/21/20 22:00 02/29/20 23:07 Enoxaparin SUB-Q 40 mg QDAY@2200 MICHAEL Administration Protocol Famotidine 20 mg 02/07/20 22:00 02/29/20 23:07 Pepcid PO 20 mg BID MICHAEL Administration Fish Oil 2,000 mg 02/17/20 13:00 02/29/20 23:07 Fish Oil PO 2,000 mg BID MICHAEL Administration Folic Acid 1 mg 02/17/20 10:00 02/29/20 09:49 Folvite PO 1 mg QDAY MICHAEL Administration Labetalol HCl 10 mg 02/05/20 20:28 02/18/20 20:44 Labetalol IV 10 mg Q3HR PRN Administration Increased Blood Pressure Lorazepam 2 mg 02/21/20 11:55 02/29/20 14:27 Ativan IV 2 mg Q4H PRN Administration Agitation Lorazepam 2 mg 02/29/20 10:00 02/29/20 10:21 Ativan IM 2 mg Q4H PRN Administration Agitation Melatonin 5 mg 02/17/20 22:00 02/29/20 23:08 Melatonin PO 5 mg QHS MICHAEL Administration Metoclopramide HCl 10 mg 02/05/20 22:45 Reglan IV Q6H PRN Nausea And Vomiting Metoprolol Tartrate 25 mg 02/16/20 19:43 02/29/20 23:07 Metoprolol PO 25 mg BID MICHAEL Administration Nicotine 21 mg 02/16/20 02:23 02/29/20 09:44 Habitrol TD 21 mg QDAY MICHAEL Administration Nifedipine 30 mg 02/16/20 22:00 02/29/20 23:07 Procardia Xl PO 30 mg Q12HR MICHAEL Administration Olanzapine 5 mg 02/17/20 22:00 02/29/20 23:08 Zyprexa PO 5 mg QHS MICHAEL Administration Ondansetron HCl 4 mg 02/05/20 22:45 02/10/20 01:28 Zofran IV 4 mg Q8H PRN Administration Nausea And Vomiting Oxycodone/Acetaminophen 1 tab 02/05/20 22:45 02/20/20 21:04 Percocet 5/325 PO 1 tab Q6H PRN Administration Pain, Moderate (4-6) Sodium Chloride 10 ml 02/06/20 10:00 02/29/20 23:08 Sodium Chloride Flush Syringe 10 Ml IV 10 ml BID MICHAEL Administration Sodium Chloride 10 ml 02/05/20 22:45 02/26/20 11:45 Sodium Chloride Flush Syringe 10 Ml IV 10 ml PRN PRN Administration LINE FLUSH Tenofovir Disoproxil Fumarate 300 mg 02/21/20 13:00 02/29/20 09:50 Viread PO 300 mg QDAY MICHAEL Administration Thiamine HCl 100 mg 02/17/20 10:00 02/29/20 09:46 Vitamin B-1 PO 100 mg QDAY MICHAEL Administration Zolpidem Tartrate 5 mg 02/17/20 22:00 02/29/20 23:08 Ambien PO 5 mg QHS MICHAEL Administration Nutrition/Malnutrition Assess - Dietary Evaluation Nutrition/Malnutrition Findings: Nutrition Notes Start: 02/12/20 11:26 Freq: Status: Active Protocol: Document 02/26/20 12:09 LM (Rec: 02/26/20 12:17 LM [id number]) Nutrition Notes Initial or Follow up Reassessment Current Diagnosis Hypertension,Hyperlipidemia Other Pertinent Diagnosis ETOH withdrawals, HIV, foot fracture Current Diet Cardiac Labs/Tests K 3.5 BUN 22 Pertinent Medications Folic acid Thiamine Fish oil Decadron Height 6 ft 1 in Weight 68.2 kg [place] Body Weight (kg) 83.63 BMI 19.8 Weight change and time frame Wt change noted Subjective/Other Information RN stated pt did not eat breakfast but usually eats lunch and dinner. Pt has not yet received lunch at time of call. Burn Absent Trauma Absent GI Symptoms None Usual Diet at Home Meals on Wheels Current % PO Negligible Minimum of two criteria No physical signs of malnutrition #2 Nutrition Diagnosis Inadequate oral intake Diagnosis Progress(for reassessment Continues documentation) #1 Nutrition Diagnosis Food and nutrition-related knowledge deficit,Other: ( Specify in comment below) Diagnosis Progress(for reassessment Continues documentation) Is patient on ventilator? No Is Patient Ambulatory and/or Out of Bed No REE-([facility]-confined to bed) [phone] Calculation Used for Recommendations [facility] Additional Notes Pro: 70-88 g (0.8-1 g/kg) Fluid: 1ml/kcal Nutrition Intervention Change Diet Order: Regular Add Supplement/Snack (indicate name/kcal Ensure Enlive Daily /protein ) Provides kCal: 350 Provides Protein (gm) 20 Goal #1 Pt will meet at least 75% of energy and protein needs. Anticipated Discharge Needs: Heart healthy diet Follow-Up By: 03/01/20 Additional Comments F/U for PO/ONS intakes, wt
[2020-03-01] MEDS: OMEGA-3 FATTY ACIDS/FISH OIL 1 GRAM CAP PO SCH ×2 (10:37→22:25)
[2020-03-01] MEDS: dexAMETHasone 4 MG/ML VIAL IV SCH (10:38)
[2020-03-01] MEDS: THIAMINE 100 MG TAB PO SCH (10:39)
[2020-03-01] MEDS: FOLIC ACID 1 MG TAB PO SCH (10:39)
[2020-03-01] MEDS: CLOPIDOGREL 75 MG TAB PO SCH (10:39)
[2020-03-01] MEDS: NIFEdipine XL 30 MG TAB PO SCH ×2 (10:39→22:25)
[2020-03-01] MEDS: METOPROLOL TARTRATE 25 MG TAB PO SCH ×2 (10:39→22:26)
[2020-03-01] MEDS: ASPIRIN 325 MG TAB PO SCH (10:39)
[2020-03-01] MEDS: DOLUTEGRAVIR 50 MG TAB PO SCH (10:40)
[2020-03-01] MEDS: TENOFOVIR 300 MG TAB PO SCH (10:40)
[2020-03-01] MEDS: FAMOTIDINE 20 MG TAB PO SCH ×2 (10:41→22:25)
[2020-03-01] MEDS: EMTRICITABINE 200 MG CAP PO SCH (10:41)
[2020-03-01] MEDS: NICOTINE 21 MG/24 HR PATCH TD SCH (10:41)
[2020-03-01] MEDS: LORazepam 2 MG/ML VIAL IM PRN (12:25)
[2020-03-01] MEDS: ZOLPIDEM 5 MG TAB PO SCH (22:25)
[2020-03-01] MEDS: ENOXAPARIN 40 MG/0.4 ML INJ SUB-Q SCH (22:26)
[2020-03-01] MEDS: MELATONIN 5 MG TAB PO SCH (22:28)
--- NOTE | 2020-03-02 08:22 | Progress Note ---
Assessment and Plan Assessment and plan: --COVID-19 test positive; 02/21/2020 Contact and droplet isolation precautions, --Covid positive patient ; no indication for remdesivir dexamethasone started today 02/24/2020 ID following, follow COVID-19 protocols --Elevated D-dimers; CTA chest negative for PE Lower extremity venous Doppler negative for DVT --HIV/AIDS Continue Truvada and dolutegravir. F/u HIV PCR and CD4 count Continue Ceftriaxone for now Monitor mentation consider further brain imaging if no better. --Left foot wounds; wound care consulted --Febrile illness; afebrile today Follow-up urine cultures, blood cultures, Chest x-ray no acute abnormalities --Acute toxic metabolic encephalopathy; Alcohol withdrawal symptoms present on admission , now off CIWA protocol Psych evaluated, on Zyprexa Mild improvement of symptoms, continues to be agitated CT head negative,Consulted neurology, possible MRI --Chronic alcohol use; Thiamine folic acid, DC IV fluids --Fracture metatarsal left foot closed; evaluated by Ortho Multiple metatarsal fractures involving 2 through 5 with minimal displacement No surgical intervention needed, supportive care --Hypertension urgency; present on admission Now well controlled ,continue current antihypertensives And as needed medications --Moderate malnutrition/hypoalbuminemia; Nutrition supplements, supportive care Consult dietitian --DVT prophylaxis;Lovenox --Restraint for safety --DC planning per case management We will closely monitor the patient and adjust the management as needed Plan of care reviewed with the patient's nurse, case management 02/10/2020. Continue CIWA protocol. Supportive care. 02/11/2020. Patient CIWA score is approximately 8. Patient still requiring restraints for agitation. Continue CIWA protocol 02/12/2020. Patient remains agitated requiring restraints. Continue CIWA protocol. PT evaluation. 02/13/2020. Physical therapy recommends rolling walker with home health PT. 02/14/2020. Nurse reports CIWA score of 10. Continue CIWA protocol. 02/15/20; patient remains confused, with alcohol withdrawal symptoms, on CIWA protocol 02/17/20; psych evaluation and recommendations noted and appreciated We will DC CIWA protocol, continue psych medications, Ativan as needed for agitation 02/18/2020; continue current management, discharge planning per case management 02/18; patient spiked fever of 102 F, cultures blood urine sent, chest x-ray requested 02/19; chest x-ray negative for acute abnormality, continues to have fever today 101.7 F Since patient has multiple risk factors like HIV, chronic alcohol use, we will rule out COVID-19 Placed isolation, Harry PCR sent, consulted ID 02/20; patient has low-grade fever, on empiric antibiotics, follow cultures, ID consulted Awaiting harry PCR test report, discussed with ID, restraint for safety, patient is transferred to [facility]/Covid unit 02/22/2020; COVID-19 test positive patient is more alert and awake today, ID evaluation noted and appreciated 02/23; wound care consulted, worsening lethargy ,consult neurologist, possible MRI if indicated 02/24' neurology consulted for worsening lethargy 02/26/2020. Neurology recommends MRI of brain with and without ROSAURA because Covid-19 can cause encephalopathy and white matter changes which cannot be seen by regular CAT scan of the brain. Follow-up EEG to evaluate subclinical seizu res. Follow-up ammonia level to rule out hepatic encephalopathy. 02/27/2020. MRI of the brain with and without contrast ordered. Ammonia level within normal limits. Follow-up EEG to evaluate subclinical seizures. Continue dexamethasone 6 mg IV given mild hypoxia for total of 10 days. Conservative management for crush injury to the left foot. 02/28/2020. Await MRI brain and EEG for further evaluation. Continue dexamethasone given hypoxia. Neurology and ID following. Continue retrovirals for HIV. Obtain exercise pulse oximetry when patient stable and cooperative. 02/29/2020. Await MRI brain and EEG for further evaluation per neurology recommendations. Continue dexamethasone given hypoxia. Neurology and ID following. Continue retrovirals for HIV. Obtain exercise pulse oximetry when patient stable and cooperative. 03/01/2020; MRI was not done yesterday because the patient was trying to get out of the bed, follow-up EEG. Obtain exercise pulse oximetry when patient stable and cooperative. Case management to find a place for him but patient is very confused and on restraints. 03/02/2020: MRI was not done yesterday because the patient was agitated. Patient was trying to get out of the bed, follow-up EEG. Obtain exercise pulse oximetry when patient stable and cooperative. Case management to find a place for him but patient is very confused and on restraints. History Interval history: I have seen and evaluated this patient at the bedside Patient is very confused He cannot give any meaningful history He tried to get out of the bed Patient has a sitter Hospitalist Physical - Physical exam Narrative exam: Not in cardiopulmonary distress. The patient appeared well nourished and normally developed. Vital signs as documented. Head exam is unremarkable. No scleral icterus . Neck is without jugular venous distension, thyromegaly, or carotid bruits. Lungs are clear to auscultation. Cardiac exam reveals regular rate and Rhythm. Abdominal exam reveals normal bowel sounds, nontender, no organomegaly. Extremities there is dressing/cast on the left leg. 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 Patient is on restraints - Constitutional Vitals: Temp Pulse Resp BP Pulse Ox 97.6 F 72 20 119/77 95 03/02/20 06:02 03/02/20 06:02 03/02/20 06:02 03/02/20 06:02 03/02/20 06:02 General appearance: Present: no acute distress, well-nourished, other (Patient is lethargic, responds appropriately intermittently) Results - Labs CBC & Chem 7: 02/29/20 18:20 02/29/20 18:20 Labs: Laboratory Last Values WBC 4.4 K/mm3 (4.5-11.0) L 02/29/20 18:20 RBC 5.70 M/mm3 (3.65-5.03) H 02/29/20 18:20 Hgb 13.6 gm/dl (11.8-15.2) 02/29/20 18:20 Hct 43.9 % (35.5-45.6) 02/29/20 18:20 MCV 77 fl (84-94) L 02/29/20 18:20 MCH 24 pg (28-32) L 02/29/20 18:20 MCHC 31 % (32-34) L 02/29/20 18:20 RDW 21.9 % (13.2-15.2) H 02/29/20 18:20 Plt Count 170 K/mm3 (140-440) 02/29/20 18:20 Lymph % (Auto) 32.3 % (13.4-35.0) 02/29/20 18:20 Cobb % (Auto) 3.5 % (0.0-7.3) 02/29/20 18:20 Eos % (Auto) 0.1 % (0.0-4.3) 02/29/20 18:20 Baso % (Auto) 0.1 % (0.0-1.8) 02/29/20 18:20 Lymph # (Auto) 1.4 K/mm3 (1.2-5.4) 02/29/20 18:20 Cobb # (Auto) 0.2 K/mm3 (0.0-0.8) 02/29/20 18:20 Eos # (Auto) 0.0 K/mm3 (0.0-0.4) 02/29/20 18:20 Baso # (Auto) 0.0 K/mm3 (0.0-0.1) 02/29/20 18:20 Add Manual Diff Complete 02/05/20 16:14 Total Counted 100 02/05/20 16:14 Seg Neutrophils % 64.0 % (40.0-70.0) 02/29/20 18:20 Seg Neuts % (Manual) 58.0 % (40.0-70.0) 02/05/20 16:14 Band Neutrophils % 0 % 02/05/20 16:14 Lymphocytes % (Manual) 33.0 % (13.4-35.0) 02/05/20 16:14 Reactive Lymphs % (Man) 0 % 02/05/20 16:14 Monocytes % (Manual) 8.0 % (0.0-7.3) H 02/05/20 16:14 Eosinophils % (Manual) 1.0 % (0.0-4.3) 02/05/20 16:14 Basophils % (Manual) 0 % (0.0-1.8) 02/05/20 16:14 Metamyelocytes % 0 % 02/05/20 16:14 Myelocytes % 0 % 02/05/20 16:14 Promyelocytes % 0 % 02/05/20 16:14 Blast Cells % 0 % 02/05/20 16:14 Nucleated RBC % Not Reportable 02/05/20 16:14 Seg Neutrophils # 2.8 K/mm3 (1.8-7.7) 02/29/20 18:20 Seg Neutrophils # Man 2.8 K/mm3 (1.8-7.7) 02/05/20 16:14 Band Neutrophils # 0.0 K/mm3 02/05/20 16:14 Abs Lymphs (Manual) 2512 cells/uL (850-3900) 02/21/20 15:12 Lymphocytes # (Manual) 1.6 K/mm3 (1.2-5.4) 02/05/20 16:14 Abs React Lymphs (Man) 0.0 K/mm3 02/05/20 16:14 Monocytes # (Manual) 0.4 K/mm3 (0.0-0.8) 02/05/20 16:14 Eosinophils # (Manual) 0.0 K/mm3 (0.0-0.4) 02/05/20 16:14 Basophils # (Manual) 0.0 K/mm3 (0.0-0.1) 02/05/20 16:14 Metamyelocytes # 0.0 K/mm3 02/05/20 16:14 Myelocytes # 0.0 K/mm3 02/05/20 16:14 Promyelocytes # 0.0 K/mm3 02/05/20 16:14 Blast Cells # 0.0 K/mm3 02/05/20 16:14 WBC Morphology Not Reportable 02/05/20 16:14 Hypersegmented Neuts Not Reportable 02/05/20 16:14 Hyposegmented Neuts Not Reportable 02/05/20 16:14 Hypogranular Neuts Not Reportable 02/05/20 16:14 Smudge Cells Not Reportable 02/05/20 16:14 Toxic Granulation Not Reportable 02/05/20 16:14 Toxic Vacuolation Not Reportable 02/05/20 16:14 Dohle Bodies Not Reportable 02/05/20 16:14 Pelger-Huet Anomaly Not Reportable 02/05/20 16:14 Esperanza Rods Not Reportable 02/05/20 16:14 Platelet Estimate Not Reportable 02/05/20 16:14 Clumped Platelets Few 02/05/20 16:14 Plt Clumps, EDTA Not Reportable 02/05/20 16:14 Large Platelets Not Reportable 02/05/20 16:14 Giant Platelets Not Reportable 02/05/20 16:14 Platelet Satelliting Not Reportable 02/05/20 16:14 Plt Morphology Comment Not Reportable 02/05/20 16:14 RBC Morphology Not Reportable 02/05/20 16:14 Dimorphic RBCs Not Reportable 02/05/20 16:14 Polychromasia Not Reportable 02/05/20 16:14 Hypochromasia 1+ 02/05/20 16:14 Poikilocytosis Not Reportable 02/05/20 16:14 Anisocytosis 1+ 02/05/20 16:14 Microcytosis Few 02/05/20 16:14 Macrocytosis Not Reportable 02/05/20 16:14 Spherocytes Not Reportable 02/05/20 16:14 Pappenheimer Bodies Not Reportable 02/05/20 16:14 Sickle Cells Not Reportable 02/05/20 16:14 Target Cells Not Reportable 02/05/20 16:14 Tear Drop Cells Not Reportable 02/05/20 16:14 Ovalocytes Not Reportable 02/05/20 16:14 Helmet Cells Not Reportable 02/05/20 16:14 [place] Bodies Not Reportable 02/05/20 16:14 [place] Rings Not Reportable 02/05/20 16:14 Master Cells Not Reportable 02/05/20 16:14 Bite Cells Not Reportable 02/05/20 16:14 Crenated Cell Not Reportable 02/05/20 16:14 Elliptocytes Not Reportable 02/05/20 16:14 Acanthocytes (Spur) Not Reportable 02/05/20 16:14 Rouleaux Not Reportable 02/05/20 16:14 Hemoglobin C Crystals Not Reportable 02/05/20 16:14 Schistocytes Not Reportable 02/05/20 16:14 Malaria parasites Not Reportable 02/05/20 16:14 Bobby Bodies Not Reportable 02/05/20 16:14 Hem Pathologist Commnt No 02/05/20 16:14 D-Dimer 545.57 ng/mlDDU (0-234) H 02/24/20 11:14 Sodium 145 mmol/L (137-145) 02/29/20 18:20 Potassium 3.5 mmol/L (3.6-5.0) L 02/29/20 18:20 Chloride 107.4 mmol/L (98-107) H 02/29/20 18:20 Carbon Dioxide 21 mmol/L (22-30) L 02/29/20 18:20 Anion Gap 20 mmol/L 02/29/20 18:20 BUN 21 mg/dL (9-20) H 02/29/20 18:20 Creatinine 0.9 mg/dL (0.8-1.3) 02/29/20 18:20 Estimated GFR > 60 ml/min 02/29/20 18:20 BUN/Creatinine Ratio 23 % 02/29/20 18:20 Glucose 111 mg/dL (75-100) H 02/29/20 18:20 POC Glucose 79 (70-105) 02/14/20 08:25 Hemoglobin A1c 5.4 % (4-6) 02/06/20 04:58 Calcium 10.3 mg/dL (8.4-10.2) H 02/29/20 18:20 Phosphorus 3.30 mg/dL (2.5-4.5) 02/19/20 05:41 Magnesium 1.70 mg/dL (1.7-2.3) 02/19/20 05:41 Ferritin 367.4 ng/mL (30.0-300.0) H 02/24/20 11:14 Total Bilirubin 0.50 mg/dL (0.1-1.2) 02/24/20 11:14 Direct Bilirubin 0.3 mg/dL (0-0.2) H 02/05/20 17:51 Indirect Bilirubin 0.5 mg/dL 02/05/20 17:51 AST 70 units/L (5-40) H 02/24/20 11:14 ALT 60 units/L (7-56) H 02/24/20 11:14 Alkaline Phosphatase 101 units/L (35-129) 02/24/20 11:14 Ammonia 36.0 umol/L (25-60) 02/26/20 10:33 Lactate Dehydrogenase 252 units/L (91-180) H 02/24/20 11:14 C-Reactive Protein 2.90 mg/dL (0.00-1.30) H 02/24/20 11:14 Total Protein 8.9 g/dL (6.3-8.2) H 02/24/20 11:14 Albumin 3.2 g/dL (3.9-5) L 02/24/20 11:14 Albumin/Globulin Ratio 0.6 % 02/24/20 11:14 Urine Color Yellow (Yellow) 02/05/20 17:47 Urine Turbidity Clear (Clear) 02/05/20 17:47 Urine pH 5.0 (5.0-7.0) 02/05/20 17:47 Ur Specific [place] 1.020 (1.003-1.030) 02/05/20 17:47 Urine Protein 100 mg/dl mg/dL (Negative) 02/05/20 17:47 Urine Glucose (UA) Neg mg/dL (Negative) 02/05/20 17:47 Urine Ketones 20 mg/dL (Negative) 02/05/20 17:47 Urine Blood Sm (Negative) 02/05/20 17:47 Urine Nitrite Neg (Negative) 02/05/20 17:47 Urine Bilirubin Neg (Negative) 02/05/20 17:47 Urine Urobilinogen 2.0 mg/dL (<2.0) 02/05/20 17:47 Ur Leukocyte Esterase Neg (Negative) 02/05/20 17:47 Urine WBC (Auto) 2.0 /HPF (0.0-6.0) 02/05/20 17:47 Urine RBC (Auto) 1.0 /HPF (0.0-6.0) 02/05/20 17:47 U Epithel Cells (Auto) < 1.0 /HPF (0-13.0) 02/05/20 17:47 Urine Mucus Few /HPF 02/05/20 17:47 Salicylates < 0.3 mg/dL (2.8-20.0) L 02/05/20 16:14 Urine Opiates Screen Presumptive negative 02/05/20 17:47 Urine Methadone Screen Presumptive negative 02/05/20 17:47 Acetaminophen 5.0 ug/mL (10.0-30.0) L 02/05/20 16:14 Ur Barbiturates Screen Presumptive negative 02/05/20 17:47 Ur Phencyclidine Scrn Presumptive negative 02/05/20 17:47 Ur Amphetamines Screen Presumptive negative 02/05/20 17:47 U Benzodiazepines Scrn Presumptive negative 02/05/20 17:47 Urine Cocaine Screen Presumptive negative 02/05/20 17:47 U Marijuana (THC) Screen Presumptive negative 02/05/20 17:47 Drugs of Abuse Note Disclamer 02/05/20 17:47 Plasma/Serum Alcohol < 0.01 % (0-0.07) 02/05/20 16:14 Lymph Enumerat CD4/CD8 0.35 (0.86-5.00) L 02/21/20 15:12 % CD3 Cells 83 % (57-85) 02/21/20 15:12 Absolute CD3 Count 2093 cells/uL (840-3060) 02/21/20 15:12 % CD4 Cells 22 % (30-61) L 02/21/20 15:12 Absolute CD4 Count 529 cells/uL (490-1740) 02/21/20 15:12 % CD8 Cells 61 % (12-42) H 02/21/20 15:12 Absolute CD8 Count 1499 cells/uL (180-1170) H 02/21/20 15:12 % CD19 Cells 8 % (6-29) 02/21/20 15:12 Absolute CD19 Count 194 cells/uL (110-660) 02/21/20 15:12 Coronavirus (PCR) Positive (Negative) A 02/21/20 09:00 Pike/IV: Voiding Method Condom Catheter IV Catheter Type [Right Upper INT / Saline Lock arm] IV Catheter Type [Right Peripheral IV Antecubital] IV Catheter Type [Right Wrist] Peripheral IV IV Catheter Type [Left Forearm INT / Saline Lock ] IV Catheter Type [Right INT / Saline Lock Forearm] IV Catheter Type [Right Hand] Peripheral IV Active Medications - Current Medications Current Medications: Generic Name Dose Route Start Last Admin Trade Name Freq PRN Reason Stop Dose Admin Acetaminophen 650 mg 02/05/20 22:45 02/29/20 23:07 Tylenol PO 650 mg Q4H PRN Administration Pain MILD(1-3)/Fever >100.5/GAMBINO Aspirin 325 mg 02/08/20 18:00 03/01/20 10:39 Aspirin PO 325 mg QDAY MICHAEL Administration Clopidogrel Bisulfate 75 mg 02/08/20 18:00 03/01/20 10:39 Plavix PO 75 mg QDAY MICHAEL Administration Dexamethasone 6 mg 02/24/20 11:00 03/01/20 10:38 Decadron IV 03/04/20 10:01 6 mg Q24HR MICHAEL Administration Emtricitabine 200 mg 02/21/20 13:00 03/01/20 10:41 Emtriva PO 200 mg QDAY MICHAEL Administration Enoxaparin Sodium 40 mg 02/21/20 22:00 03/01/20 22:26 Enoxaparin SUB-Q 40 mg QDAY@2200 MICHAEL Administration Protocol Famotidine 20 mg 02/07/20 22:00 03/01/20 22:25 Pepcid PO 20 mg BID MICHAEL Administration Fish Oil 2,000 mg 02/17/20 13:00 03/01/20 22:25 Fish Oil PO 2,000 mg BID MICHAEL Administration Folic Acid 1 mg 02/17/20 10:00 03/01/20 10:39 Folvite PO 1 mg QDAY MICHAEL Administration Labetalol HCl 10 mg 02/05/20 20:28 02/18/20 20:44 Labetalol IV 10 mg Q3HR PRN Administration Increased Blood Pressure Lorazepam 2 mg 02/21/20 11:55 02/29/20 14:27 Ativan IV 2 mg Q4H PRN Administration Agitation Lorazepam 2 mg 02/29/20 10:00 03/01/20 12:25 Ativan IM 2 mg Q4H PRN Administration Agitation Melatonin 5 mg 02/17/20 22:00 03/01/20 22:28 Melatonin PO 5 mg QHS MICHAEL Administration Metoclopramide HCl 10 mg 02/05/20 22:45 Reglan IV Q6H PRN Nausea And Vomiting Metoprolol Tartrate 25 mg 02/16/20 19:43 03/01/20 22:26 Metoprolol PO 25 mg BID MICHAEL Administration Nicotine 21 mg 02/16/20 02:23 03/01/20 10:41 Habitrol TD 21 mg QDAY MICHAEL Administration Nifedipine 30 mg 02/16/20 22:00 03/01/20 22:25 Procardia Xl PO 30 mg Q12HR MICHAEL Administration Olanzapine 5 mg 02/17/20 22:00 03/01/20 22:25 Zyprexa PO 5 mg QHS MICHAEL Administration Ondansetron HCl 4 mg 02/05/20 22:45 02/10/20 01:28 Zofran IV 4 mg Q8H PRN Administration Nausea And Vomiting Oxycodone/Acetaminophen 1 tab 02/05/20 22:45 02/20/20 21:04 Percocet 5/325 PO 1 tab Q6H PRN Administration Pain, Moderate (4-6) Sodium Chloride 10 ml 02/06/20 10:00 03/01/20 22:29 Sodium Chloride Flush Syringe 10 Ml IV 10 ml BID MICHAEL Administration Sodium Chloride 10 ml 02/05/20 22:45 02/26/20 11:45 Sodium Chloride Flush Syringe 10 Ml IV 10 ml PRN PRN Administration LINE FLUSH Tenofovir Disoproxil Fumarate 300 mg 02/21/20 13:00 03/01/20 10:40 Viread PO 300 mg QDAY MICHAEL Administration Thiamine HCl 100 mg 02/17/20 10:00 03/01/20 10:39 Vitamin B-1 PO 100 mg QDAY MICHAEL Administration Zolpidem Tartrate 5 mg 02/17/20 22:00 03/01/20 22:25 Ambien PO 5 mg QHS MICHAEL Administration Nutrition/Malnutrition Assess - Dietary Evaluation Nutrition/Malnutrition Findings: Nutrition Notes Start: 02/12/20 11:26 Freq: Status: Active Protocol: Document 03/01/20 10:40 ISMAEL (Rec: 03/01/20 10:52 ISMAEL [id number]) Co-Sign 03/01/20 10:40 LM Nutrition Notes Initial or Follow up Reassessment Current Diagnosis Hypertension,Hyperlipidemia Other Pertinent Diagnosis ETOH withdrawals, HIV, foot fracture Current Diet Regular Labs/Tests 02/28 K 3.5 BUN 21 Ca 10.3 Pertinent Medications Reviewed Height 6 ft 1 in Weight 68.2 kg [place] Body Weight (kg) 83.63 BMI 19.8 Subjective/Other Information F/U for PO/ONS intakes and wt. Per RN, pt ate 40% breakfast and 100% ONS. No new wt assessment. Percent of energy/protein needs met: 67%/79% (PO and ONS) GI Symptoms None Usual Diet at Home Meals on Wheels Current % PO Poor (25-49%) Minimum of two criteria No physical signs of malnutrition #2 Nutrition Diagnosis Inadequate oral intake As Evidenced by Signs and Symptoms Pt consumed 40% breakfast Diagnosis Progress(for reassessment Improved documentation) #1 Nutrition Diagnosis Food and nutrition-related knowledge deficit,Other: ( Specify in comment below) Diagnosis Progress(for reassessment Continues documentation) Is patient on ventilator? No Is Patient Ambulatory and/or Out of Bed No REE-([facility]-confined to bed) 7016.903 Calculation Used for Recommendations [facility] Additional Notes Pro: 70-88 g (0.8-1 g/kg) Fluid: 1ml/kcal Nutrition Intervention Change Diet Order: Continue Regular Add Supplement/Snack (indicate name/kcal Ensure Enlive Daily /protein ) Provides kCal: 350 Provides Protein (gm) 20 Goal #1 Pt will meet at least 75% of energy and protein needs. Anticipated Discharge Needs: Heart healthy diet Follow-Up By: 03/03/20 Additional Comments F/U for PO/ONS intakes, wt
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
[2020-03-02] MEDS: NIFEdipine XL 30 MG TAB PO SCH ×2 (11:14→21:39)
[2020-03-02] MEDS: METOPROLOL TARTRATE 25 MG TAB PO SCH ×2 (11:14→21:33)
[2020-03-02] MEDS: CLOPIDOGREL 75 MG TAB PO SCH (11:14)
[2020-03-02] MEDS: TENOFOVIR 300 MG TAB PO SCH (11:14)
[2020-03-02] MEDS: EMTRICITABINE 200 MG CAP PO SCH (11:14)
[2020-03-02] MEDS: THIAMINE 100 MG TAB PO SCH (11:14)
[2020-03-02] MEDS: DOLUTEGRAVIR 50 MG TAB PO SCH (11:15)
[2020-03-02] MEDS: OMEGA-3 FATTY ACIDS/FISH OIL 1 GRAM CAP PO SCH ×2 (11:15→21:32)
[2020-03-02] MEDS: NICOTINE 21 MG/24 HR PATCH TD SCH (11:15)
[2020-03-02] MEDS: ASPIRIN 325 MG TAB PO SCH (11:15)
[2020-03-02] MEDS: FAMOTIDINE 20 MG TAB PO SCH ×2 (11:15→21:32)
[2020-03-02] MEDS: oxyCODONE /ACETAMINOPHEN 5-325MG TAB PO PRN ×2 (11:16→17:45)
[2020-03-02] MEDS: FOLIC ACID 1 MG TAB PO SCH (11:16)
[2020-03-02] MEDS: dexAMETHasone 4 MG/ML VIAL IV SCH (11:16)
[2020-03-02] MEDS: LORazepam 2 MG/ML VIAL IM PRN ×2 (12:42→17:44)
[2020-03-02] MEDS: LORazepam 2 MG/ML VIAL IV PRN (21:29)
[2020-03-02] MEDS: MELATONIN 5 MG TAB PO SCH (21:32)
[2020-03-02] MEDS: ZOLPIDEM 5 MG TAB PO SCH (21:32)
[2020-03-02] MEDS: ENOXAPARIN 40 MG/0.4 ML INJ SUB-Q SCH (21:32)
[2020-03-03] MEDS: oxyCODONE /ACETAMINOPHEN 5-325MG TAB PO PRN ×2 (00:45→14:32)
[2020-03-03] MEDS ORDERED: ZIPRASIDONE MESYLATE 20 MG VIAL IM ONE ×2 (01:46→01:55)
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
--- NOTE | 2020-03-03 08:05 | Progress Note ---
Assessment and Plan Assessment and plan: --COVID-19 test positive; 02/21/2020 Contact and droplet isolation precautions, --Covid positive patient ; no indication for remdesivir dexamethasone started today 02/24/2020 ID following, follow COVID-19 protocols --Elevated D-dimers; CTA chest negative for PE Lower extremity venous Doppler negative for DVT --HIV/AIDS Continue Truvada and dolutegravir. F/u HIV PCR and CD4 count Continue Ceftriaxone for now Monitor mentation consider further brain imaging if no better. --Left foot wounds; wound care consulted --Febrile illness; afebrile today Follow-up urine cultures, blood cultures, Chest x-ray no acute abnormalities --Acute toxic metabolic encephalopathy; Alcohol withdrawal symptoms present on admission , now off CIWA protocol Psych evaluated, on Zyprexa Mild improvement of symptoms, continues to be agitated CT head negative,Consulted neurology, possible MRI --Chronic alcohol use; Thiamine folic acid, DC IV fluids --Fracture metatarsal left foot closed; evaluated by Ortho Multiple metatarsal fractures involving 2 through 5 with minimal displacement No surgical intervention needed, supportive care --Hypertension urgency; present on admission Now well controlled ,continue current antihypertensives And as needed medications --Moderate malnutrition/hypoalbuminemia; Nutrition supplements, supportive care Consult dietitian --DVT prophylaxis;Lovenox --Restraint for safety --DC planning per case management We will closely monitor the patient and adjust the management as needed Plan of care reviewed with the patient's nurse, case management 02/10/2020. Continue CIWA protocol. Supportive care. 02/11/2020. Patient CIWA score is approximately 8. Patient still requiring restraints for agitation. Continue CIWA protocol 02/12/2020. Patient remains agitated requiring restraints. Continue CIWA protocol. PT evaluation. 02/13/2020. Physical therapy recommends rolling walker with home health PT. 02/14/2020. Nurse reports CIWA score of 10. Continue CIWA protocol. 02/15/20; patient remains confused, with alcohol withdrawal symptoms, on CIWA protocol 02/17/20; psych evaluation and recommendations noted and appreciated We will DC CIWA protocol, continue psych medications, Ativan as needed for agitation 02/18/2020; continue current management, discharge planning per case management 02/18; patient spiked fever of 102 F, cultures blood urine sent, chest x-ray requested 02/19; chest x-ray negative for acute abnormality, continues to have fever today 101.7 F Since patient has multiple risk factors like HIV, chronic alcohol use, we will rule out COVID-19 Placed isolation, Harry PCR sent, consulted ID 02/20; patient has low-grade fever, on empiric antibiotics, follow cultures, ID consulted Awaiting harry PCR test report, discussed with ID, restraint for safety, patient is transferred to [facility]/Covid unit 02/22/2020; COVID-19 test positive patient is more alert and awake today, ID evaluation noted and appreciated 02/23; wound care consulted, worsening lethargy ,consult neurologist, possible MRI if indicated 02/24' neurology consulted for worsening lethargy 02/26/2020. Neurology recommends MRI of brain with and without ROSAURA because Covid-19 can cause encephalopathy and white matter changes which cannot be seen by regular CAT scan of the brain. Follow-up EEG to evaluate subclinical seizu res. Follow-up ammonia level to rule out hepatic encephalopathy. 02/27/2020. MRI of the brain with and without contrast ordered. Ammonia level within normal limits. Follow-up EEG to evaluate subclinical seizures. Continue dexamethasone 6 mg IV given mild hypoxia for total of 10 days. Conservative management for crush injury to the left foot. 02/28/2020. Await MRI brain and EEG for further evaluation. Continue dexamethasone given hypoxia. Neurology and ID following. Continue retrovirals for HIV. Obtain exercise pulse oximetry when patient stable and cooperative. 02/29/2020. Await MRI brain and EEG for further evaluation per neurology recommendations. Continue dexamethasone given hypoxia. Neurology and ID following. Continue retrovirals for HIV. Obtain exercise pulse oximetry when patient stable and cooperative. 03/01/2020; MRI was not done yesterday because the patient was trying to get out of the bed, follow-up EEG. Obtain exercise pulse oximetry when patient stable and cooperative. Case management to find a place for him but patient is very confused and on restraints. 03/02/2020: MRI was not done yesterday because the patient was agitated. Patient was trying to get out of the bed, follow-up EEG. Obtain exercise pulse oximetry when patient stable and cooperative. Case management to find a place for him but patient is very confused and on restraints. 03/03/2020; patient was very agitated and tried to get out of the bed and very aggressive towards the staff. Patient is on four-point restraints. History Interval history: I have seen and evaluated this patient at the bedside Patient is very confused He cannot give any meaningful history He tried to get out of the bed Patient has a sitter Hospitalist Physical - Physical exam Narrative exam: Not in cardiopulmonary distress. The patient appeared well nourished and normally developed. Vital signs as documented. Head exam is unremarkable. No scleral icterus . Neck is without jugular venous distension, thyromegaly, or carotid bruits. Lungs are clear to auscultation. Cardiac exam reveals regular rate and Rhythm. Abdominal exam reveals normal bowel sounds, nontender, no organomegaly. Extremities there is dressing/cast on the left leg. 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 Patient is on restraints - Constitutional Vitals: Temp Pulse Resp BP Pulse Ox 98.7 F 72 20 126/71 95 03/03/20 05:30 03/03/20 05:30 03/03/20 05:30 03/03/20 05:30 03/02/20 06:02 General appearance: Present: no acute distress, well-nourished, other (Patient is lethargic, responds appropriately intermittently) Results - Labs CBC & Chem 7: 02/29/20 18:20 02/29/20 18:20 Labs: Laboratory Last Values WBC 4.4 K/mm3 (4.5-11.0) L 02/29/20 18:20 RBC 5.70 M/mm3 (3.65-5.03) H 02/29/20 18:20 Hgb 13.6 gm/dl (11.8-15.2) 02/29/20 18:20 Hct 43.9 % (35.5-45.6) 02/29/20 18:20 MCV 77 fl (84-94) L 02/29/20 18:20 MCH 24 pg (28-32) L 02/29/20 18:20 MCHC 31 % (32-34) L 02/29/20 18:20 RDW 21.9 % (13.2-15.2) H 02/29/20 18:20 Plt Count 170 K/mm3 (140-440) 02/29/20 18:20 Lymph % (Auto) 32.3 % (13.4-35.0) 02/29/20 18:20 [place] % (Auto) 3.5 % (0.0-7.3) 02/29/20 18:20 Eos % (Auto) 0.1 % (0.0-4.3) 02/29/20 18:20 Baso % (Auto) 0.1 % (0.0-1.8) 02/29/20 18:20 Lymph # (Auto) 1.4 K/mm3 (1.2-5.4) 02/29/20 18:20 [place] # (Auto) 0.2 K/mm3 (0.0-0.8) 02/29/20 18:20 Eos # (Auto) 0.0 K/mm3 (0.0-0.4) 02/29/20 18:20 Baso # (Auto) 0.0 K/mm3 (0.0-0.1) 02/29/20 18:20 Add Manual Diff Complete 02/05/20 16:14 Total Counted 100 02/05/20 16:14 Seg Neutrophils % 64.0 % (40.0-70.0) 02/29/20 18:20 Seg Neuts % (Manual) 58.0 % (40.0-70.0) 02/05/20 16:14 Band Neutrophils % 0 % 02/05/20 16:14 Lymphocytes % (Manual) 33.0 % (13.4-35.0) 02/05/20 16:14 Reactive Lymphs % (Man) 0 % 02/05/20 16:14 Monocytes % (Manual) 8.0 % (0.0-7.3) H 02/05/20 16:14 Eosinophils % (Manual) 1.0 % (0.0-4.3) 02/05/20 16:14 Basophils % (Manual) 0 % (0.0-1.8) 02/05/20 16:14 Metamyelocytes % 0 % 02/05/20 16:14 Myelocytes % 0 % 02/05/20 16:14 Promyelocytes % 0 % 02/05/20 16:14 Blast Cells % 0 % 02/05/20 16:14 Nucleated RBC % Not Reportable 02/05/20 16:14 Seg Neutrophils # 2.8 K/mm3 (1.8-7.7) 02/29/20 18:20 Seg Neutrophils # Man 2.8 K/mm3 (1.8-7.7) 02/05/20 16:14 Band Neutrophils # 0.0 K/mm3 02/05/20 16:14 Abs Lymphs (Manual) 2512 cells/uL (850-3900) 02/21/20 15:12 Lymphocytes # (Manual) 1.6 K/mm3 (1.2-5.4) 02/05/20 16:14 Abs React Lymphs (Man) 0.0 K/mm3 02/05/20 16:14 Monocytes # (Manual) 0.4 K/mm3 (0.0-0.8) 02/05/20 16:14 Eosinophils # (Manual) 0.0 K/mm3 (0.0-0.4) 02/05/20 16:14 Basophils # (Manual) 0.0 K/mm3 (0.0-0.1) 02/05/20 16:14 Metamyelocytes # 0.0 K/mm3 02/05/20 16:14 Myelocytes # 0.0 K/mm3 02/05/20 16:14 Promyelocytes # 0.0 K/mm3 02/05/20 16:14 Blast Cells # 0.0 K/mm3 02/05/20 16:14 WBC Morphology Not Reportable 02/05/20 16:14 Hypersegmented Neuts Not Reportable 02/05/20 16:14 Hyposegmented Neuts Not Reportable 02/05/20 16:14 Hypogranular Neuts Not Reportable 02/05/20 16:14 Smudge Cells Not Reportable 02/05/20 16:14 Toxic Granulation Not Reportable 02/05/20 16:14 Toxic Vacuolation Not Reportable 02/05/20 16:14 Dohle Bodies Not Reportable 02/05/20 16:14 Pelger-Huet Anomaly Not Reportable 02/05/20 16:14 Esperanza Rods Not Reportable 02/05/20 16:14 Platelet Estimate Not Reportable 02/05/20 16:14 Clumped Platelets Few 02/05/20 16:14 Plt Clumps, EDTA Not Reportable 02/05/20 16:14 Large Platelets Not Reportable 02/05/20 16:14 Giant Platelets Not Reportable 02/05/20 16:14 Platelet Satelliting Not Reportable 02/05/20 16:14 Plt Morphology Comment Not Reportable 02/05/20 16:14 RBC Morphology Not Reportable 02/05/20 16:14 Dimorphic RBCs Not Reportable 02/05/20 16:14 Polychromasia Not Reportable 02/05/20 16:14 Hypochromasia 1+ 02/05/20 16:14 Poikilocytosis Not Reportable 02/05/20 16:14 Anisocytosis 1+ 02/05/20 16:14 Microcytosis Few 02/05/20 16:14 Macrocytosis Not Reportable 02/05/20 16:14 Spherocytes Not Reportable 02/05/20 16:14 Pappenheimer Bodies Not Reportable 02/05/20 16:14 Sickle Cells Not Reportable 02/05/20 16:14 Target Cells Not Reportable 02/05/20 16:14 Tear Drop Cells Not Reportable 02/05/20 16:14 Ovalocytes Not Reportable 02/05/20 16:14 Helmet Cells Not Reportable 02/05/20 16:14 Sargent-[place]wood Bodies Not Reportable 02/05/20 16:14 [place] Rings Not Reportable 02/05/20 16:14 [place] Cells Not Reportable 02/05/20 16:14 Bite Cells Not Reportable 02/05/20 16:14 Crenated Cell Not Reportable 02/05/20 16:14 Elliptocytes Not Reportable 02/05/20 16:14 Acanthocytes (Spur) Not Reportable 02/05/20 16:14 Rouleaux Not Reportable 02/05/20 16:14 Hemoglobin C Crystals Not Reportable 02/05/20 16:14 Schistocytes Not Reportable 02/05/20 16:14 Malaria parasites Not Reportable 02/05/20 16:14 Bobby Bodies Not Reportable 02/05/20 16:14 Hem Pathologist Commnt No 02/05/20 16:14 D-Dimer 545.57 ng/mlDDU (0-234) H 02/24/20 11:14 Sodium 145 mmol/L (137-145) 02/29/20 18:20 Potassium 3.5 mmol/L (3.6-5.0) L 02/29/20 18:20 Chloride 107.4 mmol/L (98-107) H 02/29/20 18:20 Carbon Dioxide 21 mmol/L (22-30) L 02/29/20 18:20 Anion Gap 20 mmol/L 02/29/20 18:20 BUN 21 mg/dL (9-20) H 02/29/20 18:20 Creatinine 0.9 mg/dL (0.8-1.3) 02/29/20 18:20 Estimated GFR > 60 ml/min 02/29/20 18:20 BUN/Creatinine Ratio 23 % 02/29/20 18:20 Glucose 111 mg/dL (75-100) H 02/29/20 18:20 POC Glucose 79 (70-105) 02/14/20 08:25 Hemoglobin A1c 5.4 % (4-6) 02/06/20 04:58 Calcium 10.3 mg/dL (8.4-10.2) H 02/29/20 18:20 Phosphorus 3.30 mg/dL (2.5-4.5) 02/19/20 05:41 Magnesium 1.70 mg/dL (1.7-2.3) 02/19/20 05:41 Ferritin 367.4 ng/mL (30.0-300.0) H 02/24/20 11:14 Total Bilirubin 0.50 mg/dL (0.1-1.2) 02/24/20 11:14 Direct Bilirubin 0.3 mg/dL (0-0.2) H 02/05/20 17:51 Indirect Bilirubin 0.5 mg/dL 02/05/20 17:51 AST 70 units/L (5-40) H 02/24/20 11:14 ALT 60 units/L (7-56) H 02/24/20 11:14 Alkaline Phosphatase 101 units/L (35-129) 02/24/20 11:14 Ammonia 36.0 umol/L (25-60) 02/26/20 10:33 Lactate Dehydrogenase 252 units/L (91-180) H 02/24/20 11:14 C-Reactive Protein 2.90 mg/dL (0.00-1.30) H 02/24/20 11:14 Total Protein 8.9 g/dL (6.3-8.2) H 02/24/20 11:14 Albumin 3.2 g/dL (3.9-5) L 02/24/20 11:14 Albumin/Globulin Ratio 0.6 % 02/24/20 11:14 Urine Color Yellow (Yellow) 02/05/20 17:47 Urine Turbidity Clear (Clear) 02/05/20 17:47 Urine pH 5.0 (5.0-7.0) 02/05/20 17:47 Ur Specific [place] 1.020 (1.003-1.030) 02/05/20 17:47 Urine Protein 100 mg/dl mg/dL (Negative) 02/05/20 17:47 Urine Glucose (UA) Neg mg/dL (Negative) 02/05/20 17:47 Urine Ketones 20 mg/dL (Negative) 02/05/20 17:47 Urine Blood Sm (Negative) 02/05/20 17:47 Urine Nitrite Neg (Negative) 02/05/20 17:47 Urine Bilirubin Neg (Negative) 02/05/20 17:47 Urine Urobilinogen 2.0 mg/dL (<2.0) 02/05/20 17:47 Ur Leukocyte Esterase Neg (Negative) 02/05/20 17:47 Urine WBC (Auto) 2.0 /HPF (0.0-6.0) 02/05/20 17:47 Urine RBC (Auto) 1.0 /HPF (0.0-6.0) 02/05/20 17:47 U Epithel Cells (Auto) < 1.0 /HPF (0-13.0) 02/05/20 17:47 Urine Mucus Few /HPF 02/05/20 17:47 Salicylates < 0.3 mg/dL (2.8-20.0) L 02/05/20 16:14 Urine Opiates Screen Presumptive negative 02/05/20 17:47 Urine Methadone Screen Presumptive negative 02/05/20 17:47 Acetaminophen 5.0 ug/mL (10.0-30.0) L 02/05/20 16:14 Ur Barbiturates Screen Presumptive negative 02/05/20 17:47 Ur Phencyclidine Scrn Presumptive negative 02/05/20 17:47 Ur Amphetamines Screen Presumptive negative 02/05/20 17:47 U Benzodiazepines Scrn Presumptive negative 02/05/20 17:47 Urine Cocaine Screen Presumptive negative 02/05/20 17:47 U Marijuana (THC) Screen Presumptive negative 02/05/20 17:47 Drugs of Abuse Note Disclamer 02/05/20 17:47 Plasma/Serum Alcohol < 0.01 % (0-0.07) 02/05/20 16:14 Lymph Enumerat CD4/CD8 0.35 (0.86-5.00) L 02/21/20 15:12 % CD3 Cells 83 % (57-85) 02/21/20 15:12 Absolute CD3 Count 2093 cells/uL (840-3060) 02/21/20 15:12 % CD4 Cells 22 % (30-61) L 02/21/20 15:12 Absolute CD4 Count 529 cells/uL (490-1740) 02/21/20 15:12 % CD8 Cells 61 % (12-42) H 02/21/20 15:12 Absolute CD8 Count 1499 cells/uL (180-1170) H 02/21/20 15:12 % CD19 Cells 8 % (6-29) 02/21/20 15:12 Absolute CD19 Count 194 cells/uL (110-660) 02/21/20 15:12 Coronavirus (PCR) Positive (Negative) A 02/21/20 09:00 Ipke/IV: Voiding Method Urinal IV Catheter Type [Right Upper INT / Saline Lock arm] IV Catheter Type [Right Peripheral IV Antecubital] IV Catheter Type [Right Wrist] Peripheral IV IV Catheter Type [Left Forearm INT / Saline Lock ] IV Catheter Type [Right INT / Saline Lock Forearm] IV Catheter Type [Right Hand] Peripheral IV Active Medications - Current Medications Current Medications: Generic Name Dose Route Start Last Admin Trade Name Freq PRN Reason Stop Dose Admin Acetaminophen 650 mg 02/05/20 22:45 02/29/20 23:07 Tylenol PO 650 mg Q4H PRN Administration Pain MILD(1-3)/Fever >100.5/GAMBINO Aspirin 325 mg 02/08/20 18:00 03/02/20 11:15 Aspirin PO 325 mg QDAY MICHAEL Administration Clopidogrel Bisulfate 75 mg 02/08/20 18:00 03/02/20 11:14 Plavix PO 75 mg QDAY MICHAEL Administration Dexamethasone 6 mg 02/24/20 11:00 03/02/20 11:16 Decadron IV 03/04/20 10:01 6 mg Q24HR MICHAEL Administration Emtricitabine 200 mg 02/21/20 13:00 03/02/20 11:14 Emtriva PO 200 mg QDAY MICHAEL Administration Enoxaparin Sodium 40 mg 02/21/20 22:00 03/02/20 21:32 Enoxaparin SUB-Q 40 mg QDAY@2200 MICHAEL Administration Protocol Famotidine 20 mg 02/07/20 22:00 03/02/20 21:32 Pepcid PO 20 mg BID MICHAEL Administration Fish Oil 2,000 mg 02/17/20 13:00 03/02/20 21:32 Fish Oil PO 2,000 mg BID MICHAEL Administration Folic Acid 1 mg 02/17/20 10:00 03/02/20 11:16 Folvite PO 1 mg QDAY MICHAEL Administration Labetalol HCl 10 mg 02/05/20 20:28 02/18/20 20:44 Labetalol IV 10 mg Q3HR PRN Administration Increased Blood Pressure Lorazepam 2 mg 02/21/20 11:55 03/02/20 21:29 Ativan IV 2 mg Q4H PRN Administration Agitation Lorazepam 2 mg 02/29/20 10:00 03/02/20 17:44 Ativan IM 2 mg Q4H PRN Administration Agitation Melatonin 5 mg 02/17/20 22:00 03/02/20 21:32 Melatonin PO 5 mg QHS MICHAEL Administration Metoclopramide HCl 10 mg 02/05/20 22:45 Reglan IV Q6H PRN Nausea And Vomiting Metoprolol Tartrate 25 mg 02/16/20 19:43 03/02/20 21:33 Metoprolol PO 25 mg BID MICHAEL Administration Nicotine 21 mg 02/16/20 02:23 03/02/20 11:15 Habitrol TD 21 mg QDAY MICHAEL Administration Nifedipine 30 mg 02/16/20 22:00 03/02/20 21:39 Procardia Xl PO 30 mg Q12HR MICHAEL Administration Olanzapine 5 mg 02/17/20 22:00 03/02/20 21:32 Zyprexa PO 5 mg QHS MICHAEL Administration Ondansetron HCl 4 mg 02/05/20 22:45 02/10/20 01:28 Zofran IV 4 mg Q8H PRN Administration Nausea And Vomiting Oxycodone/Acetaminophen 1 tab 02/05/20 22:45 03/03/20 00:45 Percocet 5/325 PO 1 tab Q6H PRN Administration Pain, Moderate (4-6) Sodium Chloride 10 ml 02/06/20 10:00 03/02/20 21:33 Sodium Chloride Flush Syringe 10 Ml IV 10 ml BID MICHAEL Administration Sodium Chloride 10 ml 02/05/20 22:45 02/26/20 11:45 Sodium Chloride Flush Syringe 10 Ml IV 10 ml PRN PRN Administration LINE FLUSH Tenofovir Disoproxil Fumarate 300 mg 02/21/20 13:00 03/02/20 11:14 Viread PO 300 mg QDAY MICHAEL Administration Thiamine HCl 100 mg 02/17/20 10:00 03/02/20 11:14 Vitamin B-1 PO 100 mg QDAY MICHAEL Administration Zolpidem Tartrate 5 mg 02/17/20 22:00 03/02/20 21:32 Ambien PO 5 mg QHS MICHAEL Administration Nutrition/Malnutrition Assess - Dietary Evaluation Nutrition/Malnutrition Findings: Nutrition Notes Start: 02/12/20 11:26 Freq: Status: Active Protocol: Document 03/01/20 10:40 ISMAEL (Rec: 03/01/20 10:52 ISMAEL [id number]) Co-Sign 03/01/20 10:40 LM Nutrition Notes Initial or Follow up Reassessment Current Diagnosis Hypertension,Hyperlipidemia Other Pertinent Diagnosis ETOH withdrawals, HIV, foot fracture Current Diet Regular Labs/Tests 02/28 K 3.5 BUN 21 Ca 10.3 Pertinent Medications Reviewed Height 6 ft 1 in Weight 68.2 kg [place] Body Weight (kg) 83.63 BMI 19.8 Subjective/Other Information F/U for PO/ONS intakes and wt. Per RN, pt ate 40% breakfast and 100% ONS. No new wt assessment. Percent of energy/protein needs met: 67%/79% (PO and ONS) GI Symptoms None Usual Diet at Home Meals on Wheels Current % PO Poor (25-49%) Minimum of two criteria No physical signs of malnutrition #2 Nutrition Diagnosis Inadequate oral intake As Evidenced by Signs and Symptoms Pt consumed 40% breakfast Diagnosis Progress(for reassessment Improved documentation) #1 Nutrition Diagnosis Food and nutrition-related knowledge deficit,Other: ( Specify in comment below) Diagnosis Progress(for reassessment Continues documentation) Is patient on ventilator? No Is Patient Ambulatory and/or Out of Bed No REE-([facility]-confined to bed) 5390.110 Calculation Used for Recommendations [facility] Additional Notes Pro: 70-88 g (0.8-1 g/kg) Fluid: 1ml/kcal Nutrition Intervention Change Diet Order: Continue Regular Add Supplement/Snack (indicate name/kcal Ensure Enlive Daily /protein ) Provides kCal: 350 Provides Protein (gm) 20 Goal #1 Pt will meet at least 75% of energy and protein needs. Anticipated Discharge Needs: Heart healthy diet Follow-Up By: 03/03/20 Additional Comments F/U for PO/ONS intakes, wt
[2020-03-03] MEDS: NIFEdipine XL 30 MG TAB PO SCH ×2 (10:06→21:17)
[2020-03-03] MEDS: FAMOTIDINE 20 MG TAB PO SCH ×2 (10:06→21:16)
[2020-03-03] MEDS: ASPIRIN 325 MG TAB PO SCH (10:06)
[2020-03-03] MEDS: THIAMINE 100 MG TAB PO SCH (10:06)
[2020-03-03] MEDS: CLOPIDOGREL 75 MG TAB PO SCH (10:06)
[2020-03-03] MEDS: METOPROLOL TARTRATE 25 MG TAB PO SCH ×2 (10:06→21:17)
[2020-03-03] MEDS: FOLIC ACID 1 MG TAB PO SCH (10:06)
[2020-03-03] MEDS: OMEGA-3 FATTY ACIDS/FISH OIL 1 GRAM CAP PO SCH ×2 (10:06→21:17)
[2020-03-03] MEDS: dexAMETHasone 4 MG/ML VIAL IV SCH (10:07)
[2020-03-03] MEDS: TENOFOVIR 300 MG TAB PO SCH (10:07)
[2020-03-03] MEDS: NICOTINE 21 MG/24 HR PATCH TD SCH (10:07)
[2020-03-03] MEDS: DOLUTEGRAVIR 50 MG TAB PO SCH (10:08)
[2020-03-03] MEDS: EMTRICITABINE 200 MG CAP PO SCH (10:08)
[2020-03-03] MEDS: LORazepam 2 MG/ML VIAL IV PRN ×2 (14:33→18:00)
[2020-03-03] MEDS: MELATONIN 5 MG TAB PO SCH (21:16)
[2020-03-03] MEDS: ZOLPIDEM 5 MG TAB PO SCH (21:17)
[2020-03-03] MEDS: ENOXAPARIN 40 MG/0.4 ML INJ SUB-Q SCH (21:18)
[2020-03-04] MEDS: LORazepam 2 MG/ML VIAL IM PRN ×4 (04:05→17:10)
[2020-03-04] MEDS ORDERED: HALOPERIDOL LACTATE 5 MG/1 ML INJ IM ONE (04:15)
--- NOTE | 2020-03-04 08:11 | Progress Note ---
Assessment and Plan Assessment and plan: --COVID-19 test positive; 02/21/2020 Contact and droplet isolation precautions, --Covid positive patient ; no indication for remdesivir dexamethasone started today 02/24/2020 ID following, follow COVID-19 protocols --Elevated D-dimers; CTA chest negative for PE Lower extremity venous Doppler negative for DVT --HIV/AIDS Continue Truvada and dolutegravir. F/u HIV PCR and CD4 count Continue Ceftriaxone for now Monitor mentation consider further brain imaging if no better. --Left foot wounds; wound care consulted --Febrile illness; afebrile today Follow-up urine cultures, blood cultures, Chest x-ray no acute abnormalities --Acute toxic metabolic encephalopathy; Alcohol withdrawal symptoms present on admission , now off CIWA protocol Psych evaluated, on Zyprexa Mild improvement of symptoms, continues to be agitated CT head negative,Consulted neurology, possible MRI --Chronic alcohol use; Thiamine folic acid, DC IV fluids --Fracture metatarsal left foot closed; evaluated by Ortho Multiple metatarsal fractures involving 2 through 5 with minimal displacement No surgical intervention needed, supportive care --Hypertension urgency; present on admission Now well controlled ,continue current antihypertensives And as needed medications --Moderate malnutrition/hypoalbuminemia; Nutrition supplements, supportive care Consult dietitian --DVT prophylaxis;Lovenox --Restraint for safety --DC planning per case management We will closely monitor the patient and adjust the management as needed Plan of care reviewed with the patient's nurse, case management 02/10/2020. Continue CIWA protocol. Supportive care. 02/11/2020. Patient CIWA score is approximately 8. Patient still requiring restraints for agitation. Continue CIWA protocol 02/12/2020. Patient remains agitated requiring restraints. Continue CIWA protocol. PT evaluation. 02/13/2020. Physical therapy recommends rolling walker with home health PT. 02/14/2020. Nurse reports CIWA score of 10. Continue CIWA protocol. 02/15/20; patient remains confused, with alcohol withdrawal symptoms, on CIWA protocol 02/17/20; psych evaluation and recommendations noted and appreciated We will DC CIWA protocol, continue psych medications, Ativan as needed for agitation 02/18/2020; continue current management, discharge planning per case management 02/18; patient spiked fever of 102 F, cultures blood urine sent, chest x-ray requested 02/19; chest x-ray negative for acute abnormality, continues to have fever today 101.7 F Since patient has multiple risk factors like HIV, chronic alcohol use, we will rule out COVID-19 Placed isolation, Harry PCR sent, consulted ID 02/20; patient has low-grade fever, on empiric antibiotics, follow cultures, ID consulted Awaiting harry PCR test report, discussed with ID, restraint for safety, patient is transferred to [facility]/Covid unit 02/22/2020; COVID-19 test positive patient is more alert and awake today, ID evaluation noted and appreciated 02/23; wound care consulted, worsening lethargy ,consult neurologist, possible MRI if indicated 02/24' neurology consulted for worsening lethargy 02/26/2020. Neurology recommends MRI of brain with and without ROSAURA because Covid-19 can cause encephalopathy and white matter changes which cannot be seen by regular CAT scan of the brain. Follow-up EEG to evaluate subclinical seizu res. Follow-up ammonia level to rule out hepatic encephalopathy. 02/27/2020. MRI of the brain with and without contrast ordered. Ammonia level within normal limits. Follow-up EEG to evaluate subclinical seizures. Continue dexamethasone 6 mg IV given mild hypoxia for total of 10 days. Conservative management for crush injury to the left foot. 02/28/2020. Await MRI brain and EEG for further evaluation. Continue dexamethasone given hypoxia. Neurology and ID following. Continue retrovirals for HIV. Obtain exercise pulse oximetry when patient stable and cooperative. 02/29/2020. Await MRI brain and EEG for further evaluation per neurology recommendations. Continue dexamethasone given hypoxia. Neurology and ID following. Continue retrovirals for HIV. Obtain exercise pulse oximetry when patient stable and cooperative. 03/01/2020; MRI was not done yesterday because the patient was trying to get out of the bed, follow-up EEG. Obtain exercise pulse oximetry when patient stable and cooperative. Case management to find a place for him but patient is very confused and on restraints. 03/02/2020: MRI was not done yesterday because the patient was agitated. Patient was trying to get out of the bed, follow-up EEG. Obtain exercise pulse oximetry when patient stable and cooperative. Case management to find a place for him but patient is very confused and on restraints. 03/03/2020; patient was very agitated and tried to get out of the bed and very aggressive towards the staff. Patient is on four-point restraints. 03/04/2020; and is on four-point restraints. Patient can be discharged once he is off restraints for 24 hours. Case management to find a place for him. History Interval history: I have seen and evaluated this patient at the bedside Patient is very confused He cannot give any meaningful history He tried to get out of the bed Patient has a sitter Hospitalist Physical - Physical exam Narrative exam: Not in cardiopulmonary distress. The patient appeared well nourished and normally developed. Vital signs as documented. Head exam is unremarkable. No scleral icterus . Neck is without jugular venous distension, thyromegaly, or carotid bruits. Lungs are clear to auscultation. Cardiac exam reveals regular rate and Rhythm. Abdominal exam reveals normal bowel sounds, nontender, no organomegaly. Extremities there is dressing/cast on the left leg. 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 Patient is on restraints - Constitutional Vitals: Temp Pulse Resp BP Pulse Ox 97.4 F L 85 16 135/79 99 03/04/20 02:32 03/04/20 02:32 03/04/20 02:32 03/04/20 02:32 03/04/20 02:32 General appearance: Present: no acute distress, well-nourished, other (Patient is lethargic, responds appropriately intermittently) Results - Labs CBC & Chem 7: 02/29/20 18:20 02/29/20 18:20 Labs: Laboratory Last Values WBC 4.4 K/mm3 (4.5-11.0) L 02/29/20 18:20 RBC 5.70 M/mm3 (3.65-5.03) H 02/29/20 18:20 Hgb 13.6 gm/dl (11.8-15.2) 02/29/20 18:20 Hct 43.9 % (35.5-45.6) 02/29/20 18:20 MCV 77 fl (84-94) L 02/29/20 18:20 MCH 24 pg (28-32) L 02/29/20 18:20 MCHC 31 % (32-34) L 02/29/20 18:20 RDW 21.9 % (13.2-15.2) H 02/29/20 18:20 Plt Count 170 K/mm3 (140-440) 02/29/20 18:20 Lymph % (Auto) 32.3 % (13.4-35.0) 02/29/20 18:20 Burt % (Auto) 3.5 % (0.0-7.3) 02/29/20 18:20 Eos % (Auto) 0.1 % (0.0-4.3) 02/29/20 18:20 Baso % (Auto) 0.1 % (0.0-1.8) 02/29/20 18:20 Lymph # (Auto) 1.4 K/mm3 (1.2-5.4) 02/29/20 18:20 Burt # (Auto) 0.2 K/mm3 (0.0-0.8) 02/29/20 18:20 Eos # (Auto) 0.0 K/mm3 (0.0-0.4) 02/29/20 18:20 Baso # (Auto) 0.0 K/mm3 (0.0-0.1) 02/29/20 18:20 Add Manual Diff Complete 02/05/20 16:14 Total Counted 100 02/05/20 16:14 Seg Neutrophils % 64.0 % (40.0-70.0) 02/29/20 18:20 Seg Neuts % (Manual) 58.0 % (40.0-70.0) 02/05/20 16:14 Band Neutrophils % 0 % 02/05/20 16:14 Lymphocytes % (Manual) 33.0 % (13.4-35.0) 02/05/20 16:14 Reactive Lymphs % (Man) 0 % 02/05/20 16:14 Monocytes % (Manual) 8.0 % (0.0-7.3) H 02/05/20 16:14 Eosinophils % (Manual) 1.0 % (0.0-4.3) 02/05/20 16:14 Basophils % (Manual) 0 % (0.0-1.8) 02/05/20 16:14 Metamyelocytes % 0 % 02/05/20 16:14 Myelocytes % 0 % 02/05/20 16:14 Promyelocytes % 0 % 02/05/20 16:14 Blast Cells % 0 % 02/05/20 16:14 Nucleated RBC % Not Reportable 02/05/20 16:14 Seg Neutrophils # 2.8 K/mm3 (1.8-7.7) 02/29/20 18:20 Seg Neutrophils # Man 2.8 K/mm3 (1.8-7.7) 02/05/20 16:14 Band Neutrophils # 0.0 K/mm3 02/05/20 16:14 Abs Lymphs (Manual) 2512 cells/uL (850-3900) 02/21/20 15:12 Lymphocytes # (Manual) 1.6 K/mm3 (1.2-5.4) 02/05/20 16:14 Abs React Lymphs (Man) 0.0 K/mm3 02/05/20 16:14 Monocytes # (Manual) 0.4 K/mm3 (0.0-0.8) 02/05/20 16:14 Eosinophils # (Manual) 0.0 K/mm3 (0.0-0.4) 02/05/20 16:14 Basophils # (Manual) 0.0 K/mm3 (0.0-0.1) 02/05/20 16:14 Metamyelocytes # 0.0 K/mm3 02/05/20 16:14 Myelocytes # 0.0 K/mm3 02/05/20 16:14 Promyelocytes # 0.0 K/mm3 02/05/20 16:14 Blast Cells # 0.0 K/mm3 02/05/20 16:14 WBC Morphology Not Reportable 02/05/20 16:14 Hypersegmented Neuts Not Reportable 02/05/20 16:14 Hyposegmented Neuts Not Reportable 02/05/20 16:14 Hypogranular Neuts Not Reportable 02/05/20 16:14 Smudge Cells Not Reportable 02/05/20 16:14 Toxic Granulation Not Reportable 02/05/20 16:14 Toxic Vacuolation Not Reportable 02/05/20 16:14 Dohle Bodies Not Reportable 02/05/20 16:14 Pelger-Huet Anomaly Not Reportable 02/05/20 16:14 Esperanza Rods Not Reportable 02/05/20 16:14 Platelet Estimate Not Reportable 02/05/20 16:14 Clumped Platelets Few 02/05/20 16:14 Plt Clumps, EDTA Not Reportable 02/05/20 16:14 Large Platelets Not Reportable 02/05/20 16:14 Giant Platelets Not Reportable 02/05/20 16:14 Platelet Satelliting Not Reportable 02/05/20 16:14 Plt Morphology Comment Not Reportable 02/05/20 16:14 RBC Morphology Not Reportable 02/05/20 16:14 Dimorphic RBCs Not Reportable 02/05/20 16:14 Polychromasia Not Reportable 02/05/20 16:14 Hypochromasia 1+ 02/05/20 16:14 Poikilocytosis Not Reportable 02/05/20 16:14 Anisocytosis 1+ 02/05/20 16:14 Microcytosis Few 02/05/20 16:14 Macrocytosis Not Reportable 02/05/20 16:14 Spherocytes Not Reportable 02/05/20 16:14 Pappenheimer Bodies Not Reportable 02/05/20 16:14 Sickle Cells Not Reportable 02/05/20 16:14 Target Cells Not Reportable 02/05/20 16:14 Tear Drop Cells Not Reportable 02/05/20 16:14 Ovalocytes Not Reportable 02/05/20 16:14 Helmet Cells Not Reportable 02/05/20 16:14 Sargent-Celina Bodies Not Reportable 02/05/20 16:14 [place] Rings Not Reportable 02/05/20 16:14 Master Cells Not Reportable 02/05/20 16:14 Bite Cells Not Reportable 02/05/20 16:14 Crenated Cell Not Reportable 02/05/20 16:14 Elliptocytes Not Reportable 02/05/20 16:14 Acanthocytes (Spur) Not Reportable 02/05/20 16:14 Rouleaux Not Reportable 02/05/20 16:14 Hemoglobin C Crystals Not Reportable 02/05/20 16:14 Schistocytes Not Reportable 02/05/20 16:14 Malaria parasites Not Reportable 02/05/20 16:14 Bobby Bodies Not Reportable 02/05/20 16:14 Hem Pathologist Commnt No 02/05/20 16:14 D-Dimer 545.57 ng/mlDDU (0-234) H 02/24/20 11:14 Sodium 145 mmol/L (137-145) 02/29/20 18:20 Potassium 3.5 mmol/L (3.6-5.0) L 02/29/20 18:20 Chloride 107.4 mmol/L (98-107) H 02/29/20 18:20 Carbon Dioxide 21 mmol/L (22-30) L 02/29/20 18:20 Anion Gap 20 mmol/L 02/29/20 18:20 BUN 21 mg/dL (9-20) H 02/29/20 18:20 Creatinine 0.9 mg/dL (0.8-1.3) 02/29/20 18:20 Estimated GFR > 60 ml/min 02/29/20 18:20 BUN/Creatinine Ratio 23 % 02/29/20 18:20 Glucose 111 mg/dL (75-100) H 02/29/20 18:20 POC Glucose 79 (70-105) 02/14/20 08:25 Hemoglobin A1c 5.4 % (4-6) 02/06/20 04:58 Calcium 10.3 mg/dL (8.4-10.2) H 02/29/20 18:20 Phosphorus 3.30 mg/dL (2.5-4.5) 02/19/20 05:41 Magnesium 1.70 mg/dL (1.7-2.3) 02/19/20 05:41 Ferritin 367.4 ng/mL (30.0-300.0) H 02/24/20 11:14 Total Bilirubin 0.50 mg/dL (0.1-1.2) 02/24/20 11:14 Direct Bilirubin 0.3 mg/dL (0-0.2) H 02/05/20 17:51 Indirect Bilirubin 0.5 mg/dL 02/05/20 17:51 AST 70 units/L (5-40) H 02/24/20 11:14 ALT 60 units/L (7-56) H 02/24/20 11:14 Alkaline Phosphatase 101 units/L (35-129) 02/24/20 11:14 Ammonia 36.0 umol/L (25-60) 02/26/20 10:33 Lactate Dehydrogenase 252 units/L (91-180) H 02/24/20 11:14 C-Reactive Protein 2.90 mg/dL (0.00-1.30) H 02/24/20 11:14 Total Protein 8.9 g/dL (6.3-8.2) H 02/24/20 11:14 Albumin 3.2 g/dL (3.9-5) L 02/24/20 11:14 Albumin/Globulin Ratio 0.6 % 02/24/20 11:14 Urine Color Yellow (Yellow) 02/05/20 17:47 Urine Turbidity Clear (Clear) 02/05/20 17:47 Urine pH 5.0 (5.0-7.0) 02/05/20 17:47 Ur Specific [place] 1.020 (1.003-1.030) 02/05/20 17:47 Urine Protein 100 mg/dl mg/dL (Negative) 02/05/20 17:47 Urine Glucose (UA) Neg mg/dL (Negative) 02/05/20 17:47 Urine Ketones 20 mg/dL (Negative) 02/05/20 17:47 Urine Blood Sm (Negative) 02/05/20 17:47 Urine Nitrite Neg (Negative) 02/05/20 17:47 Urine Bilirubin Neg (Negative) 02/05/20 17:47 Urine Urobilinogen 2.0 mg/dL (<2.0) 02/05/20 17:47 Ur Leukocyte Esterase Neg (Negative) 02/05/20 17:47 Urine WBC (Auto) 2.0 /HPF (0.0-6.0) 02/05/20 17:47 Urine RBC (Auto) 1.0 /HPF (0.0-6.0) 02/05/20 17:47 U Epithel Cells (Auto) < 1.0 /HPF (0-13.0) 02/05/20 17:47 Urine Mucus Few /HPF 02/05/20 17:47 Salicylates < 0.3 mg/dL (2.8-20.0) L 02/05/20 16:14 Urine Opiates Screen Presumptive negative 02/05/20 17:47 Urine Methadone Screen Presumptive negative 02/05/20 17:47 Acetaminophen 5.0 ug/mL (10.0-30.0) L 02/05/20 16:14 Ur Barbiturates Screen Presumptive negative 02/05/20 17:47 Ur Phencyclidine Scrn Presumptive negative 02/05/20 17:47 Ur Amphetamines Screen Presumptive negative 02/05/20 17:47 U Benzodiazepines Scrn Presumptive negative 02/05/20 17:47 Urine Cocaine Screen Presumptive negative 02/05/20 17:47 U Marijuana (THC) Screen Presumptive negative 02/05/20 17:47 Drugs of Abuse Note Disclamer 02/05/20 17:47 Plasma/Serum Alcohol < 0.01 % (0-0.07) 02/05/20 16:14 Lymph Enumerat CD4/CD8 0.35 (0.86-5.00) L 02/21/20 15:12 % CD3 Cells 83 % (57-85) 02/21/20 15:12 Absolute CD3 Count 2093 cells/uL (840-3060) 02/21/20 15:12 % CD4 Cells 22 % (30-61) L 02/21/20 15:12 Absolute CD4 Count 529 cells/uL (490-1740) 02/21/20 15:12 % CD8 Cells 61 % (12-42) H 02/21/20 15:12 Absolute CD8 Count 1499 cells/uL (180-1170) H 02/21/20 15:12 % CD19 Cells 8 % (6-29) 02/21/20 15:12 Absolute CD19 Count 194 cells/uL (110-660) 02/21/20 15:12 Coronavirus (PCR) Positive (Negative) A 02/21/20 09:00 Pike/IV: Voiding Method Condom Catheter IV Catheter Type [Left INT / Saline Lock Antecubital] IV Catheter Type [Right Upper INT / Saline Lock arm] IV Catheter Type [Right Peripheral IV Antecubital] IV Catheter Type [Right Wrist] Peripheral IV IV Catheter Type [Left Forearm INT / Saline Lock ] IV Catheter Type [Right INT / Saline Lock Forearm] IV Catheter Type [Right Hand] Peripheral IV Active Medications - Current Medications Current Medications: Generic Name Dose Route Start Last Admin Trade Name Freq PRN Reason Stop Dose Admin Acetaminophen 650 mg 02/05/20 22:45 02/29/20 23:07 Tylenol PO 650 mg Q4H PRN Administration Pain MILD(1-3)/Fever >100.5/GAMBINO Aspirin 325 mg 02/08/20 18:00 03/03/20 10:06 Aspirin PO 325 mg QDAY MICHAEL Administration Clopidogrel Bisulfate 75 mg 02/08/20 18:00 03/03/20 10:06 Plavix PO 75 mg QDAY MICHAEL Administration Dexamethasone 6 mg 02/24/20 11:00 03/03/20 10:07 Decadron IV 03/04/20 10:01 6 mg Q24HR MICHAEL Administration Emtricitabine 200 mg 02/21/20 13:00 03/03/20 10:08 Emtriva PO 200 mg QDAY MICHAEL Administration Enoxaparin Sodium 40 mg 02/21/20 22:00 03/03/20 21:18 Enoxaparin SUB-Q 40 mg QDAY@2200 MICHAEL Administration Protocol Famotidine 20 mg 02/07/20 22:00 03/03/20 21:16 Pepcid PO 20 mg BID MICHAEL Administration Fish Oil 2,000 mg 02/17/20 13:00 03/03/20 21:17 Fish Oil PO 2,000 mg BID MICHAEL Administration Folic Acid 1 mg 02/17/20 10:00 03/03/20 10:06 Folvite PO 1 mg QDAY MICHAEL Administration Labetalol HCl 10 mg 02/05/20 20:28 02/18/20 20:44 Labetalol IV 10 mg Q3HR PRN Administration Increased Blood Pressure Lorazepam 2 mg 02/21/20 11:55 03/03/20 18:00 Ativan IV 2 mg Q4H PRN Administration Agitation Lorazepam 2 mg 02/29/20 10:00 03/04/20 04:05 Ativan IM 2 mg Q4H PRN Administration Agitation Melatonin 5 mg 02/17/20 22:00 03/03/20 21:16 Melatonin PO 5 mg QHS MICHAEL Administration Metoclopramide HCl 10 mg 02/05/20 22:45 Reglan IV Q6H PRN Nausea And Vomiting Metoprolol Tartrate 25 mg 02/16/20 19:43 03/03/20 21:17 Metoprolol PO Not Given BID MICHAEL Nicotine 21 mg 02/16/20 02:23 03/03/20 10:07 Habitrol TD 21 mg QDAY MICHAEL Administration Nifedipine 30 mg 02/16/20 22:00 03/03/20 21:17 Procardia Xl PO 30 mg Q12HR MICHAEL Administration Olanzapine 5 mg 02/17/20 22:00 03/03/20 21:17 Zyprexa PO 5 mg QHS MICHAEL Administration Ondansetron HCl 4 mg 02/05/20 22:45 02/10/20 01:28 Zofran IV 4 mg Q8H PRN Administration Nausea And Vomiting Oxycodone/Acetaminophen 1 tab 02/05/20 22:45 03/03/20 14:32 Percocet 5/325 PO 1 tab Q6H PRN Administration Pain, Moderate (4-6) Sodium Chloride 10 ml 02/06/20 10:00 03/03/20 21:17 Sodium Chloride Flush Syringe 10 Ml IV 10 ml BID MICHAEL Administration Sodium Chloride 10 ml 02/05/20 22:45 02/26/20 11:45 Sodium Chloride Flush Syringe 10 Ml IV 10 ml PRN PRN Administration LINE FLUSH Tenofovir Disoproxil Fumarate 300 mg 02/21/20 13:00 03/03/20 10:07 Viread PO 300 mg QDAY MICHAEL Administration Thiamine HCl 100 mg 02/17/20 10:00 03/03/20 10:06 Vitamin B-1 PO 100 mg QDAY MICHAEL Administration Zolpidem Tartrate 5 mg 02/17/20 22:00 03/03/20 21:17 Ambien PO 5 mg QHS MICHAEL Administration Nutrition/Malnutrition Assess - Dietary Evaluation Nutrition/Malnutrition Findings: Nutrition Notes Start: 02/12/20 11:26 Freq: Status: Active Protocol: Document 03/03/20 11:16 ISMAEL (Rec: 03/03/20 11:23 ISMAEL [id number]) Co-Sign 03/03/20 11:16 LM Nutrition Notes Initial or Follow up Reassessment Current Diagnosis Hypertension,Hyperlipidemia Other Pertinent Diagnosis ETOH withdrawals, HIV, foot fracture Current Diet Regular Labs/Tests No new labs Pertinent Medications Folic acid Thiamine Fish oil Decadron Height 6 ft 1 in Weight 68.2 kg [place] Body Weight (kg) 83.63 BMI 19.8 Subjective/Other Information F/U for PO/ONS intakes and wt. Per RN, pt does not eat breakfast, eats 25% other meals. Pt not drinking ONS, complained about ONS temp. Percent of energy/protein needs met: 30%/31% (PO courtney) Burn Absent Trauma Absent GI Symptoms None Usual Diet at Home Meals on Wheels Current % PO Poor (25-49%) Minimum of two criteria No physical signs of malnutrition #2 Nutrition Diagnosis Inadequate oral intake As Evidenced by Signs and Symptoms Pt consuming 25% meals Diagnosis Progress(for reassessment Worsened documentation) #1 Nutrition Diagnosis Food and nutrition-related knowledge deficit,Other: ( Specify in comment below) Diagnosis Progress(for reassessment Continues documentation) Is patient on ventilator? No Is Patient Ambulatory and/or Out of Bed No REE-([facility]-confined to bed) [phone] Calculation Used for Recommendations [facility] Additional Notes Pro: 70-88 g (0.8-1 g/kg) Fluid: 1ml/kcal Nutrition Intervention Change Diet Order: Continue Regular or TF if poor intakes continue Add Supplement/Snack (indicate name/kcal Ensure Enlive Daily /protein ) Provides kCal: 350 Provides Protein (gm) 20 Goal #1 Pt will meet at least 75% of energy and protein needs. Anticipated Discharge Needs: Heart healthy diet Follow-Up By: 03/07/20 Additional Comments F/U for PO/ONS intakes
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
[2020-03-04] MEDS: THIAMINE 100 MG TAB PO SCH (10:18)
[2020-03-04] MEDS: FAMOTIDINE 20 MG TAB PO SCH (10:18)
[2020-03-04] MEDS: CLOPIDOGREL 75 MG TAB PO SCH (10:18)
[2020-03-04] MEDS: FOLIC ACID 1 MG TAB PO SCH (10:18)
[2020-03-04] MEDS: NIFEdipine XL 30 MG TAB PO SCH (10:18)
[2020-03-04] MEDS: EMTRICITABINE 200 MG CAP PO SCH (10:18)
[2020-03-04] MEDS: NICOTINE 21 MG/24 HR PATCH TD SCH (10:18)
[2020-03-04] MEDS: OMEGA-3 FATTY ACIDS/FISH OIL 1 GRAM CAP PO SCH (10:18)
[2020-03-04] MEDS: DOLUTEGRAVIR 50 MG TAB PO SCH (10:18)
[2020-03-04] MEDS: TENOFOVIR 300 MG TAB PO SCH (10:18)
[2020-03-04] MEDS: ASPIRIN 325 MG TAB PO SCH (10:18)
[2020-03-04] MEDS: METOPROLOL TARTRATE 25 MG TAB PO SCH (10:19)
[2020-03-04] MEDS: dexAMETHasone 4 MG/ML VIAL IV SCH ×2 (10:19→10:59)
[2020-03-05] MEDS: OMEGA-3 FATTY ACIDS/FISH OIL 1 GRAM CAP PO SCH ×3 (00:01→22:15)
[2020-03-05] MEDS: FAMOTIDINE 20 MG TAB PO SCH ×3 (00:02→22:15)
[2020-03-05] MEDS: MELATONIN 5 MG TAB PO SCH ×2 (00:02→22:15)
[2020-03-05] MEDS: ZOLPIDEM 5 MG TAB PO SCH ×2 (00:02→22:15)
[2020-03-05] MEDS: NIFEdipine XL 30 MG TAB PO SCH ×3 (00:03→22:18)
[2020-03-05] MEDS: METOPROLOL TARTRATE 25 MG TAB PO SCH ×3 (00:03→22:18)
[2020-03-05] MEDS: ENOXAPARIN 40 MG/0.4 ML INJ SUB-Q SCH ×2 (00:05→22:16)
[2020-03-05] MEDS: LORazepam 2 MG/ML VIAL IM PRN (02:25)
[2020-03-05] MEDS ORDERED: HALOPERIDOL LACTATE 5 MG/1 ML INJ IM ONE (03:45)
--- NOTE | 2020-03-05 07:53 | Progress Note ---
Assessment and Plan Assessment and plan: --COVID-19 test positive; 02/21/2020 Contact and droplet isolation precautions, --Covid positive patient ; no indication for remdesivir dexamethasone started today 02/24/2020 ID following, follow COVID-19 protocols --Elevated D-dimers; CTA chest negative for PE Lower extremity venous Doppler negative for DVT --HIV/AIDS Continue Truvada and dolutegravir. F/u HIV PCR and CD4 count Continue Ceftriaxone for now Monitor mentation consider further brain imaging if no better. --Left foot wounds; wound care consulted --Febrile illness; afebrile today Follow-up urine cultures, blood cultures, Chest x-ray no acute abnormalities --Acute toxic metabolic encephalopathy; Alcohol withdrawal symptoms present on admission , now off CIWA protocol Psych evaluated, on Zyprexa Mild improvement of symptoms, continues to be agitated CT head negative,Consulted neurology, possible MRI --Chronic alcohol use; Thiamine folic acid, DC IV fluids --Fracture metatarsal left foot closed; evaluated by Ortho Multiple metatarsal fractures involving 2 through 5 with minimal displacement No surgical intervention needed, supportive care --Hypertension urgency; present on admission Now well controlled ,continue current antihypertensives And as needed medications --Moderate malnutrition/hypoalbuminemia; Nutrition supplements, supportive care Consult dietitian --DVT prophylaxis;Lovenox --Restraint for safety --DC planning per case management We will closely monitor the patient and adjust the management as needed Plan of care reviewed with the patient's nurse, case management 02/10/2020. Continue CIWA protocol. Supportive care. 02/11/2020. Patient CIWA score is approximately 8. Patient still requiring restraints for agitation. Continue CIWA protocol 02/12/2020. Patient remains agitated requiring restraints. Continue CIWA protocol. PT evaluation. 02/13/2020. Physical therapy recommends rolling walker with home health PT. 02/14/2020. Nurse reports CIWA score of 10. Continue CIWA protocol. 02/15/20; patient remains confused, with alcohol withdrawal symptoms, on CIWA protocol 02/17/20; psych evaluation and recommendations noted and appreciated We will DC CIWA protocol, continue psych medications, Ativan as needed for agitation 02/18/2020; continue current management, discharge planning per case management 02/18; patient spiked fever of 102 F, cultures blood urine sent, chest x-ray requested 02/19; chest x-ray negative for acute abnormality, continues to have fever today 101.7 F Since patient has multiple risk factors like HIV, chronic alcohol use, we will rule out COVID-19 Placed isolation, Harry PCR sent, consulted ID 02/20; patient has low-grade fever, on empiric antibiotics, follow cultures, ID consulted Awaiting harry PCR test report, discussed with ID, restraint for safety, patient is transferred to [facility]/Covid unit 02/22/2020; COVID-19 test positive patient is more alert and awake today, ID evaluation noted and appreciated 02/23; wound care consulted, worsening lethargy ,consult neurologist, possible MRI if indicated 02/24' neurology consulted for worsening lethargy 02/26/2020. Neurology recommends MRI of brain with and without ROSAURA because Covid-19 can cause encephalopathy and white matter changes which cannot be seen by regular CAT scan of the brain. Follow-up EEG to evaluate subclinical seizu res. Follow-up ammonia level to rule out hepatic encephalopathy. 02/27/2020. MRI of the brain with and without contrast ordered. Ammonia level within normal limits. Follow-up EEG to evaluate subclinical seizures. Continue dexamethasone 6 mg IV given mild hypoxia for total of 10 days. Conservative management for crush injury to the left foot. 02/28/2020. Await MRI brain and EEG for further evaluation. Continue dexamethasone given hypoxia. Neurology and ID following. Continue retrovirals for HIV. Obtain exercise pulse oximetry when patient stable and cooperative. 02/29/2020. Await MRI brain and EEG for further evaluation per neurology recommendations. Continue dexamethasone given hypoxia. Neurology and ID following. Continue retrovirals for HIV. Obtain exercise pulse oximetry when patient stable and cooperative. 03/01/2020; MRI was not done yesterday because the patient was trying to get out of the bed, follow-up EEG. Obtain exercise pulse oximetry when patient stable and cooperative. Case management to find a place for him but patient is very confused and on restraints. 03/02/2020: MRI was not done yesterday because the patient was agitated. Patient was trying to get out of the bed, follow-up EEG. Obtain exercise pulse oximetry when patient stable and cooperative. Case management to find a place for him but patient is very confused and on restraints. 03/03/2020; patient was very agitated and tried to get out of the bed and very aggressive towards the staff. Patient is on four-point restraints. 03/04/2020; and is on four-point restraints. Patient can be discharged once he is off restraints for 24 hours. Case management to find a place for him. 03/05/2020; patient is on restraints. Treated for COVID-19 infection. Patient is agitated and confused. Patient can be discharged once he is off restraints for 24 hours. Case management to find him a place. History Interval history: I have seen and evaluated this patient at the bedside Patient is very confused He cannot give any meaningful history He tried to get out of the bed Patient has a sitter Hospitalist Physical - Physical exam Narrative exam: Not in cardiopulmonary distress. The patient appeared well nourished and normally developed. Vital signs as documented. Head exam is unremarkable. No scleral icterus . Neck is without jugular venous distension, thyromegaly, or carotid bruits. Lungs are clear to auscultation. Cardiac exam reveals regular rate and Rhythm. Abdominal exam reveals normal bowel sounds, nontender, no organomegaly. Extremities there is dressing/cast on the left leg. 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 Patient is on restraints - Constitutional Vitals: Temp Pulse Resp BP Pulse Ox 97.3 F L 72 18 143/87 98 03/05/20 03:55 03/05/20 03:56 03/05/20 03:55 03/05/20 03:55 03/05/20 03:56 General appearance: Present: no acute distress, well-nourished, other (Patient is lethargic, responds appropriately intermittently) Results - Labs CBC & Chem 7: 02/29/20 18:20 02/29/20 18:20 Labs: Laboratory Last Values WBC 4.4 K/mm3 (4.5-11.0) L 02/29/20 18:20 RBC 5.70 M/mm3 (3.65-5.03) H 02/29/20 18:20 Hgb 13.6 gm/dl (11.8-15.2) 02/29/20 18:20 Hct 43.9 % (35.5-45.6) 02/29/20 18:20 MCV 77 fl (84-94) L 02/29/20 18:20 MCH 24 pg (28-32) L 02/29/20 18:20 MCHC 31 % (32-34) L 02/29/20 18:20 RDW 21.9 % (13.2-15.2) H 02/29/20 18:20 Plt Count 170 K/mm3 (140-440) 02/29/20 18:20 Lymph % (Auto) 32.3 % (13.4-35.0) 02/29/20 18:20 [place] % (Auto) 3.5 % (0.0-7.3) 02/29/20 18:20 Eos % (Auto) 0.1 % (0.0-4.3) 02/29/20 18:20 Baso % (Auto) 0.1 % (0.0-1.8) 02/29/20 18:20 Lymph # (Auto) 1.4 K/mm3 (1.2-5.4) 02/29/20 18:20 [place] # (Auto) 0.2 K/mm3 (0.0-0.8) 02/29/20 18:20 Eos # (Auto) 0.0 K/mm3 (0.0-0.4) 02/29/20 18:20 Baso # (Auto) 0.0 K/mm3 (0.0-0.1) 02/29/20 18:20 Add Manual Diff Complete 02/05/20 16:14 Total Counted 100 02/05/20 16:14 Seg Neutrophils % 64.0 % (40.0-70.0) 02/29/20 18:20 Seg Neuts % (Manual) 58.0 % (40.0-70.0) 02/05/20 16:14 Band Neutrophils % 0 % 02/05/20 16:14 Lymphocytes % (Manual) 33.0 % (13.4-35.0) 02/05/20 16:14 Reactive Lymphs % (Man) 0 % 02/05/20 16:14 Monocytes % (Manual) 8.0 % (0.0-7.3) H 02/05/20 16:14 Eosinophils % (Manual) 1.0 % (0.0-4.3) 02/05/20 16:14 Basophils % (Manual) 0 % (0.0-1.8) 02/05/20 16:14 Metamyelocytes % 0 % 02/05/20 16:14 Myelocytes % 0 % 02/05/20 16:14 Promyelocytes % 0 % 02/05/20 16:14 Blast Cells % 0 % 02/05/20 16:14 Nucleated RBC % Not Reportable 02/05/20 16:14 Seg Neutrophils # 2.8 K/mm3 (1.8-7.7) 02/29/20 18:20 Seg Neutrophils # Man 2.8 K/mm3 (1.8-7.7) 02/05/20 16:14 Band Neutrophils # 0.0 K/mm3 02/05/20 16:14 Abs Lymphs (Manual) 2512 cells/uL (850-3900) 02/21/20 15:12 Lymphocytes # (Manual) 1.6 K/mm3 (1.2-5.4) 02/05/20 16:14 Abs React Lymphs (Man) 0.0 K/mm3 02/05/20 16:14 Monocytes # (Manual) 0.4 K/mm3 (0.0-0.8) 02/05/20 16:14 Eosinophils # (Manual) 0.0 K/mm3 (0.0-0.4) 02/05/20 16:14 Basophils # (Manual) 0.0 K/mm3 (0.0-0.1) 02/05/20 16:14 Metamyelocytes # 0.0 K/mm3 02/05/20 16:14 Myelocytes # 0.0 K/mm3 02/05/20 16:14 Promyelocytes # 0.0 K/mm3 02/05/20 16:14 Blast Cells # 0.0 K/mm3 02/05/20 16:14 WBC Morphology Not Reportable 02/05/20 16:14 Hypersegmented Neuts Not Reportable 02/05/20 16:14 Hyposegmented Neuts Not Reportable 02/05/20 16:14 Hypogranular Neuts Not Reportable 02/05/20 16:14 Smudge Cells Not Reportable 02/05/20 16:14 Toxic Granulation Not Reportable 02/05/20 16:14 Toxic Vacuolation Not Reportable 02/05/20 16:14 Dohle Bodies Not Reportable 02/05/20 16:14 Pelger-Huet Anomaly Not Reportable 02/05/20 16:14 Esperanza Rods Not Reportable 02/05/20 16:14 Platelet Estimate Not Reportable 02/05/20 16:14 Clumped Platelets Few 02/05/20 16:14 Plt Clumps, EDTA Not Reportable 02/05/20 16:14 Large Platelets Not Reportable 02/05/20 16:14 Giant Platelets Not Reportable 02/05/20 16:14 Platelet Satelliting Not Reportable 02/05/20 16:14 Plt Morphology Comment Not Reportable 02/05/20 16:14 RBC Morphology Not Reportable 02/05/20 16:14 Dimorphic RBCs Not Reportable 02/05/20 16:14 Polychromasia Not Reportable 02/05/20 16:14 Hypochromasia 1+ 02/05/20 16:14 Poikilocytosis Not Reportable 02/05/20 16:14 Anisocytosis 1+ 02/05/20 16:14 Microcytosis Few 02/05/20 16:14 Macrocytosis Not Reportable 02/05/20 16:14 Spherocytes Not Reportable 02/05/20 16:14 Pappenheimer Bodies Not Reportable 02/05/20 16:14 Sickle Cells Not Reportable 02/05/20 16:14 Target Cells Not Reportable 02/05/20 16:14 Tear Drop Cells Not Reportable 02/05/20 16:14 Ovalocytes Not Reportable 02/05/20 16:14 Helmet Cells Not Reportable 02/05/20 16:14 [place] Bodies Not Reportable 02/05/20 16:14 [place] Rings Not Reportable 02/05/20 16:14 [place] Cells Not Reportable 02/05/20 16:14 Bite Cells Not Reportable 02/05/20 16:14 Crenated Cell Not Reportable 02/05/20 16:14 Elliptocytes Not Reportable 02/05/20 16:14 Acanthocytes (Spur) Not Reportable 02/05/20 16:14 Rouleaux Not Reportable 02/05/20 16:14 Hemoglobin C Crystals Not Reportable 02/05/20 16:14 Schistocytes Not Reportable 02/05/20 16:14 Malaria parasites Not Reportable 02/05/20 16:14 Bobby Bodies Not Reportable 02/05/20 16:14 Hem Pathologist Commnt No 02/05/20 16:14 D-Dimer 545.57 ng/mlDDU (0-234) H 02/24/20 11:14 Sodium 145 mmol/L (137-145) 02/29/20 18:20 Potassium 3.5 mmol/L (3.6-5.0) L 02/29/20 18:20 Chloride 107.4 mmol/L (98-107) H 02/29/20 18:20 Carbon Dioxide 21 mmol/L (22-30) L 02/29/20 18:20 Anion Gap 20 mmol/L 02/29/20 18:20 BUN 21 mg/dL (9-20) H 02/29/20 18:20 Creatinine 0.9 mg/dL (0.8-1.3) 02/29/20 18:20 Estimated GFR > 60 ml/min 02/29/20 18:20 BUN/Creatinine Ratio 23 % 02/29/20 18:20 Glucose 111 mg/dL (75-100) H 02/29/20 18:20 POC Glucose 79 (70-105) 02/14/20 08:25 Hemoglobin A1c 5.4 % (4-6) 02/06/20 04:58 Calcium 10.3 mg/dL (8.4-10.2) H 02/29/20 18:20 Phosphorus 3.30 mg/dL (2.5-4.5) 02/19/20 05:41 Magnesium 1.70 mg/dL (1.7-2.3) 02/19/20 05:41 Ferritin 367.4 ng/mL (30.0-300.0) H 02/24/20 11:14 Total Bilirubin 0.50 mg/dL (0.1-1.2) 02/24/20 11:14 Direct Bilirubin 0.3 mg/dL (0-0.2) H 02/05/20 17:51 Indirect Bilirubin 0.5 mg/dL 02/05/20 17:51 AST 70 units/L (5-40) H 02/24/20 11:14 ALT 60 units/L (7-56) H 02/24/20 11:14 Alkaline Phosphatase 101 units/L (35-129) 02/24/20 11:14 Ammonia 36.0 umol/L (25-60) 02/26/20 10:33 Lactate Dehydrogenase 252 units/L (91-180) H 02/24/20 11:14 C-Reactive Protein 2.90 mg/dL (0.00-1.30) H 02/24/20 11:14 Total Protein 8.9 g/dL (6.3-8.2) H 02/24/20 11:14 Albumin 3.2 g/dL (3.9-5) L 02/24/20 11:14 Albumin/Globulin Ratio 0.6 % 02/24/20 11:14 Urine Color Yellow (Yellow) 02/05/20 17:47 Urine Turbidity Clear (Clear) 02/05/20 17:47 Urine pH 5.0 (5.0-7.0) 02/05/20 17:47 Ur Specific [place] 1.020 (1.003-1.030) 02/05/20 17:47 Urine Protein 100 mg/dl mg/dL (Negative) 02/05/20 17:47 Urine Glucose (UA) Neg mg/dL (Negative) 02/05/20 17:47 Urine Ketones 20 mg/dL (Negative) 02/05/20 17:47 Urine Blood Sm (Negative) 02/05/20 17:47 Urine Nitrite Neg (Negative) 02/05/20 17:47 Urine Bilirubin Neg (Negative) 02/05/20 17:47 Urine Urobilinogen 2.0 mg/dL (<2.0) 02/05/20 17:47 Ur Leukocyte Esterase Neg (Negative) 02/05/20 17:47 Urine WBC (Auto) 2.0 /HPF (0.0-6.0) 02/05/20 17:47 Urine RBC (Auto) 1.0 /HPF (0.0-6.0) 02/05/20 17:47 U Epithel Cells (Auto) < 1.0 /HPF (0-13.0) 02/05/20 17:47 Urine Mucus Few /HPF 02/05/20 17:47 Salicylates < 0.3 mg/dL (2.8-20.0) L 02/05/20 16:14 Urine Opiates Screen Presumptive negative 02/05/20 17:47 Urine Methadone Screen Presumptive negative 02/05/20 17:47 Acetaminophen 5.0 ug/mL (10.0-30.0) L 02/05/20 16:14 Ur Barbiturates Screen Presumptive negative 02/05/20 17:47 Ur Phencyclidine Scrn Presumptive negative 02/05/20 17:47 Ur Amphetamines Screen Presumptive negative 02/05/20 17:47 U Benzodiazepines Scrn Presumptive negative 02/05/20 17:47 Urine Cocaine Screen Presumptive negative 02/05/20 17:47 U Marijuana (THC) Screen Presumptive negative 02/05/20 17:47 Drugs of Abuse Note Disclamer 02/05/20 17:47 Plasma/Serum Alcohol < 0.01 % (0-0.07) 02/05/20 16:14 Lymph Enumerat CD4/CD8 0.35 (0.86-5.00) L 02/21/20 15:12 % CD3 Cells 83 % (57-85) 02/21/20 15:12 Absolute CD3 Count 2093 cells/uL (840-3060) 02/21/20 15:12 % CD4 Cells 22 % (30-61) L 02/21/20 15:12 Absolute CD4 Count 529 cells/uL (490-1740) 02/21/20 15:12 % CD8 Cells 61 % (12-42) H 02/21/20 15:12 Absolute CD8 Count 1499 cells/uL (180-1170) H 02/21/20 15:12 % CD19 Cells 8 % (6-29) 02/21/20 15:12 Absolute CD19 Count 194 cells/uL (110-660) 02/21/20 15:12 Coronavirus (PCR) Positive (Negative) A 02/21/20 09:00 [place]/IV: Voiding Method Condom Catheter IV Catheter Type [Left INT / Saline Lock Antecubital] IV Catheter Type [Right Upper INT / Saline Lock arm] IV Catheter Type [Right Peripheral IV Antecubital] IV Catheter Type [Right Wrist] Peripheral IV IV Catheter Type [Left Forearm INT / Saline Lock ] IV Catheter Type [Right INT / Saline Lock Forearm] IV Catheter Type [Right Hand] Peripheral IV Active Medications - Current Medications Current Medications: Generic Name Dose Route Start Last Admin Trade Name Freq PRN Reason Stop Dose Admin Acetaminophen 650 mg 02/05/20 22:45 02/29/20 23:07 Tylenol PO 650 mg Q4H PRN Administration Pain MILD(1-3)/Fever >100.5/GAMBINO Aspirin 325 mg 02/08/20 18:00 11/06/20 10:18 Aspirin PO 325 mg QDAY MICHAEL Administration Clopidogrel Bisulfate 75 mg 02/08/20 18:00 03/04/20 10:18 Plavix PO 75 mg QDAY MICHAEL Administration Emtricitabine 200 mg 02/21/20 13:00 03/04/20 10:18 Emtriva PO 200 mg QDAY MICHAEL Administration Enoxaparin Sodium 40 mg 02/21/20 22:00 03/05/20 00:05 Enoxaparin SUB-Q 40 mg QDAY@2200 MICHAEL Administration Protocol Famotidine 20 mg 02/07/20 22:00 03/05/20 00:02 Pepcid PO 20 mg BID MICHAEL Administration Fish Oil 2,000 mg 02/17/20 13:00 03/05/20 00:01 Fish Oil PO 2,000 mg BID MICHAEL Administration Folic Acid 1 mg 02/17/20 10:00 03/04/20 10:18 Folvite PO 1 mg QDAY MICHAEL Administration Labetalol HCl 10 mg 02/05/20 20:28 02/18/20 20:44 Labetalol IV 10 mg Q3HR PRN Administration Increased Blood Pressure Lorazepam 2 mg 02/21/20 11:55 03/03/20 18:00 Ativan IV 2 mg Q4H PRN Administration Agitation Lorazepam 2 mg 02/29/20 10:00 03/05/20 02:25 Ativan IM 2 mg Q4H PRN Administration Agitation Melatonin 5 mg 02/17/20 22:00 03/05/20 00:02 Melatonin PO 5 mg QHS MICHAEL Administration Metoclopramide HCl 10 mg 02/05/20 22:45 Reglan IV Q6H PRN Nausea And Vomiting Metoprolol Tartrate 25 mg 02/16/20 19:43 03/05/20 00:03 Metoprolol PO 25 mg BID MICHAEL Administration Nicotine 21 mg 02/16/20 02:23 03/04/20 10:18 Habitrol TD 21 mg QDAY MICHAEL Administration Nifedipine 30 mg 02/16/20 22:00 03/05/20 00:03 Procardia Xl PO 30 mg Q12HR MICHAEL Administration Olanzapine 5 mg 02/17/20 22:00 03/05/20 00:02 Zyprexa PO 5 mg QHS IMCHAEL Administration Ondansetron HCl 4 mg 02/05/20 22:45 02/10/20 01:28 Zofran IV 4 mg Q8H PRN Administration Nausea And Vomiting Oxycodone/Acetaminophen 1 tab 02/05/20 22:45 03/03/20 14:32 Percocet 5/325 PO 1 tab Q6H PRN Administration Pain, Moderate (4-6) Sodium Chloride 10 ml 02/06/20 10:00 03/05/20 00:04 Sodium Chloride Flush Syringe 10 Ml IV 10 ml BID MICHAEL Administration Sodium Chloride 10 ml 02/05/20 22:45 02/26/20 11:45 Sodium Chloride Flush Syringe 10 Ml IV 10 ml PRN PRN Administration LINE FLUSH Tenofovir Disoproxil Fumarate 300 mg 02/21/20 13:00 03/04/20 10:18 Viread PO 300 mg QDAY MICHAEL Administration Thiamine HCl 100 mg 02/17/20 10:00 03/04/20 10:18 Vitamin B-1 PO 100 mg QDAY MICHAEL Administration Zolpidem Tartrate 5 mg 02/17/20 22:00 03/05/20 00:02 Ambien PO 5 mg QHS MICHAEL Administration Nutrition/Malnutrition Assess - Dietary Evaluation Nutrition/Malnutrition Findings: Nutrition Notes Start: 02/12/20 11:26 Freq: Status: Active Protocol: Document 03/03/20 11:16 ISMAEL (Rec: 03/03/20 11:23 ISMAEL [id number]) Co-Sign 03/03/20 11:16 LM Nutrition Notes Initial or Follow up Reassessment Current Diagnosis Hypertension,Hyperlipidemia Other Pertinent Diagnosis ETOH withdrawals, HIV, foot fracture Current Diet Regular Labs/Tests No new labs Pertinent Medications Folic acid Thiamine Fish oil Decadron Height 6 ft 1 in Weight 68.2 kg [place] Body Weight (kg) 83.63 BMI 19.8 Subjective/Other Information F/U for PO/ONS intakes and wt. Per RN, pt does not eat breakfast, eats 25% other meals. Pt not drinking ONS, complained about ONS temp. Percent of energy/protein needs met: 30%/31% (PO courtney) Burn Absent Trauma Absent GI Symptoms None Usual Diet at Home Meals on Wheels Current % PO Poor (25-49%) Minimum of two criteria No physical signs of malnutrition #2 Nutrition Diagnosis Inadequate oral intake As Evidenced by Signs and Symptoms Pt consuming 25% meals Diagnosis Progress(for reassessment Worsened documentation) #1 Nutrition Diagnosis Food and nutrition-related knowledge deficit,Other: ( Specify in comment below) Diagnosis Progress(for reassessment Continues documentation) Is patient on ventilator? No Is Patient Ambulatory and/or Out of Bed No REE-([facility]-confined to bed) 8914.602 Calculation Used for Recommendations [facility][1] Additional Notes Pro: 70-88 g (0.8-1 g/kg) Fluid: 1ml/kcal Nutrition Intervention Change Diet Order: Continue Regular or TF if poor intakes continue Add Supplement/Snack (indicate name/kcal Ensure Enlive Daily /protein ) Provides kCal: 350 Provides Protein (gm) 20 Goal #1 Pt will meet at least 75% of energy and protein needs. Anticipated Discharge Needs: Heart healthy diet Follow-Up By: 03/07/20 Additional Comments F/U for PO/ONS intakes
[2020-03-05] MEDS: POTASSIUM CHLORIDE ER 10 MEQ TAB PO SCH (10:00)
[2020-03-05] MEDS: ASPIRIN 325 MG TAB PO SCH (10:00)
[2020-03-05] MEDS: CLOPIDOGREL 75 MG TAB PO SCH (10:00)
[2020-03-05] MEDS: FOLIC ACID 1 MG TAB PO SCH (10:00)
[2020-03-05] MEDS: THIAMINE 100 MG TAB PO SCH (10:00)
[2020-03-05] MEDS: TENOFOVIR 300 MG TAB PO SCH (10:00)
[2020-03-05] MEDS: EMTRICITABINE 200 MG CAP PO SCH (17:41)
[2020-03-05] MEDS: DOLUTEGRAVIR 50 MG TAB PO SCH (17:41)
[2020-03-05] MEDS: NICOTINE 21 MG/24 HR PATCH TD SCH (18:41)
[2020-03-05 18:55] LABS: HIV-1 RNA QN PCR 2.45 Log cps/mL
[2020-03-05] MEDS: LORazepam 2 MG/ML VIAL IV PRN (22:15)
[2020-03-06 05:33] LABS: BUN/Creatinine Ratio 18; Blood Urea Nitrogen 16 mg/dL (9-20); Calcium 9.6 mg/dL (8.4-10.2); Hemolysis Index 2
--- NOTE | 2020-03-06 14:24 | Progress Note ---
Assessment and Plan - Patient Problems (1) Metabolic encephalopathy Current Visit: Yes Status: Acute Plan to address problem: Supportive care, seizure precautions, aspiration precautions, fall precautions, (2) COVID-19 Current Visit: Yes Status: Acute Plan to address problem: Patient currently asymptomatic with resolution of symptoms. Patient was found to be coronavirus positive on 02/21/2020.. (3) HIV (human immunodeficiency virus infection) Current Visit: Yes Status: Chronic Qualifiers: HIV symptom status: asymptomatic Qualified Code(s): Z21 - Asymptomatic human immunodeficiency virus [HIV] infection status Plan to address problem: Continue current antiretroviral therapy, outpatient infectious disease follow- up, supportive care. (4) Hypertension Current Visit: Yes Status: Chronic Qualifiers: Hypertension type: essential hypertension Qualified Code(s): I10 - Es sential (primary) hypertension Plan to address problem: Monitor blood pressure every shift, continue medical management (5) Severe malnutrition Current Visit: Yes Status: Acute Plan to address problem: Increase protein intake, dietary supplementation, (6) DVT prophylaxis Current Visit: Yes Status: Acute Plan to address problem: SCD to bilateral lower extremities while in bed, prophylactic anticoagulation (7) Debility Current Visit: Yes Status: Acute Plan to address problem: Physical therapy consulted, continue current therapy. Discharge planning to SNF when bed available. History Interval history: 54-year-old male hospital day 31 with toxic metabolic encephalopathy, coronavirus infection, AIDS, alcohol withdrawal, who is currently pending discharge to [facility]dc facility. Patient remains confused and lethargic and unable to provide history. No reported nursing events. No acute decompensation overnight. No significant improvement. Hospitalist Physical - Constitutional Vitals: Temp Pulse Resp BP Pulse Ox 97.9 F 76 18 144/85 100 03/06/20 10:25 03/06/20 10:25 03/06/20 10:25 03/06/20 10:25 03/06/20 10:25 General appearance: Present: no acute distress, well-nourished, other (Patient is lethargic, responds appropriately intermittently) - EENT Eyes: Present: PERRL ENT: hearing decreased - Neck Neck: Present: supple - Respiratory Respiratory: bilateral: diminished - Cardiovascular Rhythm: regular Heart Sounds: Present: S1 & S2 - Extremities Extremities: no ischemia Peripheral Pulses: within normal limits - Abdominal General gastrointestinal: soft, non-tender, non-distended - Integumentary Integumentary: Present: clear, dry - Psychiatric Psychiatric: no appropriate mood/affect, no intact judgment & insight, no memory intact, cooperative - Neurologic Neurologic: CNII-XII intact, moves all extremities, no gait normal Results - Labs CBC & Chem 7: 02/29/20 18:20 03/06/20 04:45 Labs: Laboratory Last Values WBC 4.4 K/mm3 (4.5-11.0) L 02/29/20 18:20 RBC 5.70 M/mm3 (3.65-5.03) H 02/29/20 18:20 Hgb 13.6 gm/dl (11.8-15.2) 02/29/20 18:20 Hct 43.9 % (35.5-45.6) 02/29/20 18:20 MCV 77 fl (84-94) L 02/29/20 18:20 MCH 24 pg (28-32) L 02/29/20 18:20 MCHC 31 % (32-34) L 02/29/20 18:20 RDW 21.9 % (13.2-15.2) H 02/29/20 18:20 Plt Count 170 K/mm3 (140-440) 02/29/20 18:20 Lymph % (Auto) 32.3 % (13.4-35.0) 02/29/20 18:20 Woodson % (Auto) 3.5 % (0.0-7.3) 02/29/20 18:20 Eos % (Auto) 0.1 % (0.0-4.3) 02/29/20 18:20 Baso % (Auto) 0.1 % (0.0-1.8) 02/29/20 18:20 Lymph # (Auto) 1.4 K/mm3 (1.2-5.4) 02/29/20 18:20 Woodson # (Auto) 0.2 K/mm3 (0.0-0.8) 02/29/20 18:20 Eos # (Auto) 0.0 K/mm3 (0.0-0.4) 02/29/20 18:20 Baso # (Auto) 0.0 K/mm3 (0.0-0.1) 02/29/20 18:20 Add Manual Diff Complete 02/05/20 16:14 Total Counted 100 02/05/20 16:14 Seg Neutrophils % 64.0 % (40.0-70.0) 02/29/20 18:20 Seg Neuts % (Manual) 58.0 % (40.0-70.0) 02/05/20 16:14 Band Neutrophils % 0 % 02/05/20 16:14 Lymphocytes % (Manual) 33.0 % (13.4-35.0) 02/05/20 16:14 Reactive Lymphs % (Man) 0 % 02/05/20 16:14 Monocytes % (Manual) 8.0 % (0.0-7.3) H 02/05/20 16:14 Eosinophils % (Manual) 1.0 % (0.0-4.3) 02/05/20 16:14 Basophils % (Manual) 0 % (0.0-1.8) 02/05/20 16:14 Metamyelocytes % 0 % 02/05/20 16:14 Myelocytes % 0 % 02/05/20 16:14 Promyelocytes % 0 % 02/05/20 16:14 Blast Cells % 0 % 02/05/20 16:14 Nucleated RBC % Not Reportable 02/05/20 16:14 Seg Neutrophils # 2.8 K/mm3 (1.8-7.7) 02/29/20 18:20 Seg Neutrophils # Man 2.8 K/mm3 (1.8-7.7) 02/05/20 16:14 Band Neutrophils # 0.0 K/mm3 02/05/20 16:14 Abs Lymphs (Manual) 2512 cells/uL (850-3900) 02/21/20 15:12 Lymphocytes # (Manual) 1.6 K/mm3 (1.2-5.4) 02/05/20 16:14 Abs React Lymphs (Man) 0.0 K/mm3 02/05/20 16:14 Monocytes # (Manual) 0.4 K/mm3 (0.0-0.8) 02/05/20 16:14 Eosinophils # (Manual) 0.0 K/mm3 (0.0-0.4) 02/05/20 16:14 Basophils # (Manual) 0.0 K/mm3 (0.0-0.1) 02/05/20 16:14 Metamyelocytes # 0.0 K/mm3 02/05/20 16:14 Myelocytes # 0.0 K/mm3 02/05/20 16:14 Promyelocytes # 0.0 K/mm3 02/05/20 16:14 Blast Cells # 0.0 K/mm3 02/05/20 16:14 WBC Morphology Not Reportable 02/05/20 16:14 Hypersegmented Neuts Not Reportable 02/05/20 16:14 Hyposegmented Neuts Not Reportable 02/05/20 16:14 Hypogranular Neuts Not Reportable 02/05/20 16:14 Smudge Cells Not Reportable 02/05/20 16:14 Toxic Granulation Not Reportable 02/05/20 16:14 Toxic Vacuolation Not Reportable 02/05/20 16:14 Dohle Bodies Not Reportable 02/05/20 16:14 Pelger-Huet Anomaly Not Reportable 02/05/20 16:14 Esperanza Rods Not Reportable 02/05/20 16:14 Platelet Estimate Not Reportable 02/05/20 16:14 Clumped Platelets Few 02/05/20 16:14 Plt Clumps, EDTA Not Reportable 02/05/20 16:14 Large Platelets Not Reportable 02/05/20 16:14 Giant Platelets Not Reportable 02/05/20 16:14 Platelet Satelliting Not Reportable 02/05/20 16:14 Plt Morphology Comment Not Reportable 02/05/20 16:14 RBC Morphology Not Reportable 02/05/20 16:14 Dimorphic RBCs Not Reportable 02/05/20 16:14 Polychromasia Not Reportable 02/05/20 16:14 Hypochromasia 1+ 02/05/20 16:14 Poikilocytosis Not Reportable 02/05/20 16:14 Anisocytosis 1+ 02/05/20 16:14 Microcytosis Few 02/05/20 16:14 Macrocytosis Not Reportable 02/05/20 16:14 Spherocytes Not Reportable 02/05/20 16:14 Pappenheimer Bodies Not Reportable 02/05/20 16:14 Sickle Cells Not Reportable 02/05/20 16:14 Target Cells Not Reportable 02/05/20 16:14 Tear Drop Cells Not Reportable 02/05/20 16:14 Ovalocytes Not Reportable 02/05/20 16:14 Helmet Cells Not Reportable 02/05/20 16:14 Sargent-Senath Bodies Not Reportable 02/05/20 16:14 [place]uffs Rings Not Reportable 02/05/20 16:14 Master Cells Not Reportable 02/05/20 16:14 Bite Cells Not Reportable 02/05/20 16:14 Crenated Cell Not Reportable 02/05/20 16:14 Elliptocytes Not Reportable 02/05/20 16:14 Acanthocytes (Spur) Not Reportable 02/05/20 16:14 Rouleaux Not Reportable 02/05/20 16:14 Hemoglobin C Crystals Not Reportable 02/05/20 16:14 Schistocytes Not Reportable 02/05/20 16:14 Malaria parasites Not Reportable 02/05/20 16:14 Bobby Bodies Not Reportable 02/05/20 16:14 Hem Pathologist Commnt No 02/05/20 16:14 D-Dimer 545.57 ng/mlDDU (0-234) H 02/24/20 11:14 Sodium 144 mmol/L (137-145) 03/06/20 04:45 Potassium 3.1 mmol/L (3.6-5.0) L 03/06/20 04:45 Chloride 110.2 mmol/L (98-107) H 03/06/20 04:45 Carbon Dioxide 23 mmol/L (22-30) 03/06/20 04:45 Anion Gap 14 mmol/L 03/06/20 04:45 BUN 16 mg/dL (9-20) 03/06/20 04:45 Creatinine 0.9 mg/dL (0.8-1.3) 03/06/20 04:45 Estimated GFR > 60 ml/min 03/06/20 04:45 BUN/Creatinine Ratio 18 % 03/06/20 04:45 Glucose 94 mg/dL (75-100) 03/06/20 04:45 POC Glucose 79 (70-105) 02/14/20 08:25 Hemoglobin A1c 5.4 % (4-6) 02/06/20 04:58 Calcium 9.6 mg/dL (8.4-10.2) 03/06/20 04:45 Phosphorus 3.30 mg/dL (2.5-4.5) 02/19/20 05:41 Magnesium 1.70 mg/dL (1.7-2.3) 02/19/20 05:41 Ferritin 367.4 ng/mL (30.0-300.0) H 02/24/20 11:14 Total Bilirubin 0.50 mg/dL (0.1-1.2) 02/24/20 11:14 Direct Bilirubin 0.3 mg/dL (0-0.2) H 02/05/20 17:51 Indirect Bilirubin 0.5 mg/dL 02/05/20 17:51 AST 70 units/L (5-40) H 02/24/20 11:14 ALT 60 units/L (7-56) H 02/24/20 11:14 Alkaline Phosphatase 101 units/L (35-129) 02/24/20 11:14 Ammonia 36.0 umol/L (25-60) 02/26/20 10:33 Lactate Dehydrogenase 252 units/L (91-180) H 02/24/20 11:14 C-Reactive Protein 2.90 mg/dL (0.00-1.30) H 02/24/20 11:14 Total Protein 8.9 g/dL (6.3-8.2) H 02/24/20 11:14 Albumin 3.2 g/dL (3.9-5) L 02/24/20 11:14 Albumin/Globulin Ratio 0.6 % 02/24/20 11:14 Urine Color Yellow (Yellow) 02/05/20 17:47 Urine Turbidity Clear (Clear) 02/05/20 17:47 Urine pH 5.0 (5.0-7.0) 02/05/20 17:47 Ur Specific Cadott 1.020 (1.003-1.030) 02/05/20 17:47 Urine Protein 100 mg/dl mg/dL (Negative) 02/05/20 17:47 Urine Glucose (UA) Neg mg/dL (Negative) 02/05/20 17:47 Urine Ketones 20 mg/dL (Negative) 02/05/20 17:47 Urine Blood Sm (Negative) 02/05/20 17:47 Urine Nitrite Neg (Negative) 02/05/20 17:47 Urine Bilirubin Neg (Negative) 02/05/20 17:47 Urine Urobilinogen 2.0 mg/dL (<2.0) 02/05/20 17:47 Ur Leukocyte Esterase Neg (Negative) 02/05/20 17:47 Urine WBC (Auto) 2.0 /HPF (0.0-6.0) 02/05/20 17:47 Urine RBC (Auto) 1.0 /HPF (0.0-6.0) 02/05/20 17:47 U Epithel Cells (Auto) < 1.0 /HPF (0-13.0) 02/05/20 17:47 Urine Mucus Few /HPF 02/05/20 17:47 Salicylates < 0.3 mg/dL (2.8-20.0) L 02/05/20 16:14 Urine Opiates Screen Presumptive negative 02/05/20 17:47 Urine Methadone Screen Presumptive negative 02/05/20 17:47 Acetaminophen 5.0 ug/mL (10.0-30.0) L 02/05/20 16:14 Ur Barbiturates Screen Presumptive negative 02/05/20 17:47 Ur Phencyclidine Scrn Presumptive negative 02/05/20 17:47 Ur Amphetamines Screen Presumptive negative 02/05/20 17:47 U Benzodiazepines Scrn Presumptive negative 02/05/20 17:47 Urine Cocaine Screen Presumptive negative 02/05/20 17:47 U Marijuana (THC) Screen Presumptive negative 02/05/20 17:47 Drugs of Abuse Note Disclamer 02/05/20 17:47 Plasma/Serum Alcohol < 0.01 % (0-0.07) 02/05/20 16:14 Lymph Enumerat CD4/CD8 0.35 (0.86-5.00) L 02/21/20 15:12 % CD3 Cells 83 % (57-85) 02/21/20 15:12 Absolute CD3 Count 2093 cells/uL (840-3060) 02/21/20 15:12 % CD4 Cells 22 % (30-61) L 02/21/20 15:12 Absolute CD4 Count 529 cells/uL (490-1740) 02/21/20 15:12 % CD8 Cells 61 % (12-42) H 02/21/20 15:12 Absolute CD8 Count 1499 cells/uL (180-1170) H 02/21/20 15:12 % CD19 Cells 8 % (6-29) 02/21/20 15:12 Absolute CD19 Count 194 cells/uL (110-660) 02/21/20 15:12 Coronavirus (PCR) Positive (Negative) A 02/21/20 09:00 HIV-1 RNA PCR copies/ml 283 Copies/mL H 02/23/20 16:10 HIV-1 RNA (PCR) log 2.45 Log cps/mL H 02/23/20 16:10 Pike/IV: Voiding Method Condom Catheter IV Catheter Type [Left INT / Saline Lock Antecubital] IV Catheter Type [Right Upper INT / Saline Lock arm] IV Catheter Type [Right Peripheral IV Antecubital] IV Catheter Type [Right Wrist] Peripheral IV IV Catheter Type [Left Forearm INT / Saline Lock ] IV Catheter Type [Right INT / Saline Lock Forearm] IV Catheter Type [Right Hand] Peripheral IV Active Medications - Current Medications Current Medications: Generic Name Dose Route Start Last Admin Trade Name Freq PRN Reason Stop Dose Admin Acetaminophen 650 mg 02/05/20 22:45 02/29/20 23:07 Tylenol PO 650 mg Q4H PRN Administration Pain MILD(1-3)/Fever >100.5/GAMBINO Aspirin 325 mg 02/08/20 18:00 03/05/20 10:00 Aspirin PO Not Given QDAY [facility] Clopidogrel Bisulfate 75 mg 02/08/20 18:00 03/05/20 10:00 Plavix PO Not Given QDAY [facility] Emtricitabine 200 mg 02/21/20 13:00 03/05/20 17:41 Emtriva PO Not Given QDAY [facility] Enoxaparin Sodium 40 mg 02/21/20 22:00 03/05/20 22:16 Enoxaparin SUB-Q 40 mg QDAY@2200 [facility] Administration Protocol Famotidine 20 mg 02/07/20 22:00 03/05/20 22:15 Pepcid PO 20 mg BID MICHAEL Administration Fish Oil 2,000 mg 02/17/20 13:00 03/05/20 22:15 Fish Oil PO 2,000 mg BID [facility] Administration Folic Acid 1 mg 02/17/20 10:00 03/05/20 10:00 Folvite PO Not Given QDAY MICHAEL Labetalol HCl 10 mg 02/05/20 20:28 02/18/20 20:44 Labetalol IV 10 mg Q3HR PRN Administration Increased Blood Pressure Lorazepam 2 mg 02/21/20 11:55 03/05/20 22:15 Ativan IV 2 mg Q4H PRN Administration Agitation Lorazepam 2 mg 02/29/20 10:00 03/05/20 02:25 Ativan IM 2 mg Q4H PRN Administration Agitation Melatonin 5 mg 02/17/20 22:00 03/05/20 22:15 Melatonin PO 5 mg QHS MICHAEL Administration Metoclopramide HCl 10 mg 02/05/20 22:45 Reglan IV Q6H PRN Nausea And Vomiting Metoprolol Tartrate 25 mg 02/16/20 19:43 03/05/20 22:18 Metoprolol PO 25 mg BID MICHAEL Administration Nicotine 21 mg 02/16/20 02:23 03/05/20 18:41 Habitrol TD 21 mg QDAY MICHAEL Administration Nifedipine 30 mg 02/16/20 22:00 03/05/20 22:18 Procardia Xl PO 30 mg Q12HR MICHAEL Administration Olanzapine 5 mg 02/17/20 22:00 03/05/20 22:14 Zyprexa PO 5 mg QHS MICHAEL Administration Ondansetron HCl 4 mg 02/05/20 22:45 02/10/20 01:28 Zofran IV 4 mg Q8H PRN Administration Nausea And Vomiting Oxycodone/Acetaminophen 1 tab 02/05/20 22:45 03/03/20 14:32 Percocet 5/325 PO 1 tab Q6H PRN Administration Pain, Moderate (4-6) Potassium Chloride 30 meq 03/05/20 10:00 03/05/20 10:00 K-Dur PO Not Given QDAY MICHAEL Sodium Chloride 10 ml 02/06/20 10:00 03/05/20 22:17 Sodium Chloride Flush Syringe 10 Ml IV 10 ml BID MICHAEL Administration Sodium Chloride 10 ml 02/05/20 22:45 02/26/20 11:45 Sodium Chloride Flush Syringe 10 Ml IV 10 ml PRN PRN Administration LINE FLUSH Tenofovir Disoproxil Fumarate 300 mg 02/21/20 13:00 03/05/20 10:00 Viread PO Not Given QDAY MICHAEL Thiamine HCl 100 mg 02/17/20 10:00 03/05/20 10:00 Vitamin B-1 PO Not Given QDAY MICHAEL Zolpidem Tartrate 5 mg 02/17/20 22:00 03/05/20 22:15 Ambien PO 5 mg QHS MICHAEL Administration Nutrition/Malnutrition Assess - Dietary Evaluation Nutrition/Malnutrition Findings: Nutrition Notes Start: 02/12/20 11:26 Freq: Status: Active Protocol: Document 03/03/20 11:16 ISMAEL (Rec: 03/03/20 11:23 BK [id number]) Co-Sign 03/03/20 11:16 LM Nutrition Notes Initial or Follow up Reassessment Current Diagnosis Hypertension,Hyperlipidemia Other Pertinent Diagnosis ETOH withdrawals, HIV, foot fracture Current Diet Regular Labs/Tests No new labs Pertinent Medications Folic acid Thiamine Fish oil Decadron Height 6 ft 1 in Weight 68.2 kg [place] Body Weight (kg) 83.63 BMI 19.8 Subjective/Other Information F/U for PO/ONS intakes and wt. Per RN, pt does not eat breakfast, eats 25% other meals. Pt not drinking ONS, complained about ONS temp. Percent of energy/protein needs met: 30%/31% (PO courtney) Burn Absent Trauma Absent GI Symptoms None Usual Diet at Home Meals on Wheels Current % PO Poor (25-49%) Minimum of two criteria No physical signs of malnutrition #2 Nutrition Diagnosis Inadequate oral intake As Evidenced by Signs and Symptoms Pt consuming 25% meals Diagnosis Progress(for reassessment Worsened documentation) #1 Nutrition Diagnosis Food and nutrition-related knowledge deficit,Other: ( Specify in comment below) Diagnosis Progress(for reassessment Continues documentation) Is patient on ventilator? No Is Patient Ambulatory and/or Out of Bed No REE-([facility]-confined to bed) 2393.359 Calculation Used for Recommendations [facility] Additional Notes Pro: 70-88 g (0.8-1 g/kg) Fluid: 1ml/kcal Nutrition Intervention Change Diet Order: Continue Regular or TF if poor intakes continue Add Supplement/Snack (indicate name/kcal Ensure Enlive Daily /protein ) Provides kCal: 350 Provides Protein (gm) 20 Goal #1 Pt will meet at least 75% of energy and protein needs. Anticipated Discharge Needs: Heart healthy diet Follow-Up By: 03/07/20 Additional Comments F/U for PO/ONS intakes
[2020-03-06] MEDS: EMTRICITABINE 200 MG CAP PO SCH (14:52)
[2020-03-06] MEDS: POTASSIUM CHLORIDE ER 10 MEQ TAB PO SCH (14:52)
[2020-03-06] MEDS: TENOFOVIR 300 MG TAB PO SCH (14:52)
[2020-03-06] MEDS: ASPIRIN 325 MG TAB PO SCH (14:52)
[2020-03-06] MEDS: CLOPIDOGREL 75 MG TAB PO SCH (14:53)
[2020-03-06] MEDS: METOPROLOL TARTRATE 25 MG TAB PO SCH ×2 (14:53→22:38)
[2020-03-06] MEDS: NIFEdipine XL 30 MG TAB PO SCH ×2 (14:53→22:38)
[2020-03-06] MEDS: THIAMINE 100 MG TAB PO SCH (14:53)
[2020-03-06] MEDS: FAMOTIDINE 20 MG TAB PO SCH ×2 (14:53→22:38)
[2020-03-06] MEDS: OMEGA-3 FATTY ACIDS/FISH OIL 1 GRAM CAP PO SCH ×2 (14:53→22:38)
[2020-03-06] MEDS: NICOTINE 21 MG/24 HR PATCH TD SCH (14:54)
[2020-03-06] MEDS: DOLUTEGRAVIR 50 MG TAB PO SCH (14:55)
[2020-03-06] MEDS: FOLIC ACID 1 MG TAB PO SCH (15:04)
[2020-03-06] MEDS: ACETAMINOPHEN 325 MG TAB PO PRN (22:37)
[2020-03-06] MEDS: LORazepam 2 MG/ML VIAL IV PRN (22:38)
[2020-03-06] MEDS: ZOLPIDEM 5 MG TAB PO SCH (22:39)
[2020-03-06] MEDS: MELATONIN 5 MG TAB PO SCH (22:39)
[2020-03-06] MEDS: ENOXAPARIN 40 MG/0.4 ML INJ SUB-Q SCH (22:40)
[2020-03-07] MEDS: OMEGA-3 FATTY ACIDS/FISH OIL 1 GRAM CAP PO SCH ×2 (09:36→22:53)
[2020-03-07] MEDS: NIFEdipine XL 30 MG TAB PO SCH ×2 (09:37→22:56)
[2020-03-07] MEDS: NICOTINE 21 MG/24 HR PATCH TD SCH (09:37)
[2020-03-07] MEDS: CLOPIDOGREL 75 MG TAB PO SCH (09:37)
[2020-03-07] MEDS: FAMOTIDINE 20 MG TAB PO SCH ×2 (09:37→22:52)
[2020-03-07] MEDS: DOLUTEGRAVIR 50 MG TAB PO SCH (09:40)
[2020-03-07] MEDS: EMTRICITABINE 200 MG CAP PO SCH (09:40)
[2020-03-07] MEDS: TENOFOVIR 300 MG TAB PO SCH (09:40)
[2020-03-07] MEDS: FOLIC ACID 1 MG TAB PO SCH (09:41)
[2020-03-07] MEDS: METOPROLOL TARTRATE 25 MG TAB PO SCH ×2 (09:58→22:56)
[2020-03-07] MEDS: ASPIRIN 325 MG TAB PO SCH (09:59)
[2020-03-07] MEDS: THIAMINE 100 MG TAB PO SCH (09:59)
[2020-03-07] MEDS: POTASSIUM CHLORIDE ER 10 MEQ TAB PO SCH (10:00)
[2020-03-07] MEDS: LORazepam 2 MG/ML VIAL IV PRN (14:10)
--- NOTE | 2020-03-07 19:55 | Progress Note ---
Assessment and Plan - Patient Problems (1) Metabolic encephalopathy Current Visit: Yes Status: Acute Plan to address problem: Supportive care, seizure precautions, aspiration precautions, fall precautions, (2) COVID-19 Current Visit: Yes Status: Acute Plan to address problem: Patient currently asymptomatic with resolution of symptoms. Patient was found to be coronavirus positive on 02/21/2020.. (3) HIV (human immunodeficiency virus infection) Current Visit: Yes Status: Chronic Qualifiers: HIV symptom status: asymptomatic Qualified Code(s): Z21 - Asymptomatic human immunodeficiency virus [HIV] infection status Plan to address problem: Continue current antiretroviral therapy, outpatient infectious disease follow- up, supportive care. (4) Hypertension Current Visit: Yes Status: Chronic Qualifiers: Hypertension type: essential hypertension Qualified Code(s): I10 - Es sential (primary) hypertension Plan to address problem: Monitor blood pressure every shift, continue medical management (5) Severe malnutrition Current Visit: Yes Status: Acute Plan to address problem: Increase protein intake, dietary supplementation, (6) DVT prophylaxis Current Visit: Yes Status: Acute Plan to address problem: SCD to bilateral lower extremities while in bed, prophylactic anticoagulation (7) Debility Current Visit: Yes Status: Acute Plan to address problem: Physical therapy consulted, continue current therapy. Discharge planning to SNF when bed available. History Interval history: 54-year-old male hospital day 32 with toxic metabolic encephalopathy, coronavirus infection, AIDS, alcohol withdrawal, who is currently pending discharge to nursing home facility. Patient remains confused and lethargic and unable to provide history. No reported nursing events. No acute decompensation overnight. No significant improvement. Hospitalist Physical - Constitutional Vitals: Temp Pulse Resp BP Pulse Ox 97.8 F 83 20 117/81 99 03/07/20 16:05 03/07/20 16:05 03/07/20 16:05 03/07/20 16:05 03/07/20 16:05 General appearance: Present: no acute distress, well-nourished, other (Patient is lethargic, responds appropriately intermittently) - EENT Eyes: Present: PERRL - Neck Neck: Present: supple - Respiratory Respiratory effort: normal Respiratory: bilateral: CTA - Cardiovascular Rhythm: regular - Extremities Extremities: no ischemia Peripheral Pulses: within normal limits - Abdominal General gastrointestinal: soft, non-tender, non-distended - Integumentary Integumentary: Present: clear, dry - Psychiatric Psychiatric: no appropriate mood/affect, no intact judgment & insight - Neurologic Neurologic: CNII-XII intact, moves all extremities, no gait normal Results - Labs CBC & Chem 7: 02/29/20 18:20 03/06/20 04:45 Labs: Laboratory Last Values WBC 4.4 K/mm3 (4.5-11.0) L 02/29/20 18:20 RBC 5.70 M/mm3 (3.65-5.03) H 02/29/20 18:20 Hgb 13.6 gm/dl (11.8-15.2) 02/29/20 18:20 Hct 43.9 % (35.5-45.6) 02/29/20 18:20 MCV 77 fl (84-94) L 02/29/20 18:20 MCH 24 pg (28-32) L 02/29/20 18:20 MCHC 31 % (32-34) L 02/29/20 18:20 RDW 21.9 % (13.2-15.2) H 02/29/20 18:20 Plt Count 170 K/mm3 (140-440) 02/29/20 18:20 Lymph % (Auto) 32.3 % (13.4-35.0) 02/29/20 18:20 Rains % (Auto) 3.5 % (0.0-7.3) 02/29/20 18:20 Eos % (Auto) 0.1 % (0.0-4.3) 02/29/20 18:20 Baso % (Auto) 0.1 % (0.0-1.8) 02/29/20 18:20 Lymph # (Auto) 1.4 K/mm3 (1.2-5.4) 02/29/20 18:20 Rains # (Auto) 0.2 K/mm3 (0.0-0.8) 02/29/20 18:20 Eos # (Auto) 0.0 K/mm3 (0.0-0.4) 02/29/20 18:20 Baso # (Auto) 0.0 K/mm3 (0.0-0.1) 02/29/20 18:20 Add Manual Diff Complete 02/05/20 16:14 Total Counted 100 02/05/20 16:14 Seg Neutrophils % 64.0 % (40.0-70.0) 02/29/20 18:20 Seg Neuts % (Manual) 58.0 % (40.0-70.0) 02/05/20 16:14 Band Neutrophils % 0 % 02/05/20 16:14 Lymphocytes % (Manual) 33.0 % (13.4-35.0) 02/05/20 16:14 Reactive Lymphs % (Man) 0 % 02/05/20 16:14 Monocytes % (Manual) 8.0 % (0.0-7.3) H 02/05/20 16:14 Eosinophils % (Manual) 1.0 % (0.0-4.3) 02/05/20 16:14 Basophils % (Manual) 0 % (0.0-1.8) 02/05/20 16:14 Metamyelocytes % 0 % 02/05/20 16:14 Myelocytes % 0 % 02/05/20 16:14 Promyelocytes % 0 % 02/05/20 16:14 Blast Cells % 0 % 02/05/20 16:14 Nucleated RBC % Not Reportable 02/05/20 16:14 Seg Neutrophils # 2.8 K/mm3 (1.8-7.7) 02/29/20 18:20 Seg Neutrophils # Man 2.8 K/mm3 (1.8-7.7) 02/05/20 16:14 Band Neutrophils # 0.0 K/mm3 02/05/20 16:14 Abs Lymphs (Manual) 2512 cells/uL (850-3900) 02/21/20 15:12 Lymphocytes # (Manual) 1.6 K/mm3 (1.2-5.4) 02/05/20 16:14 Abs React Lymphs (Man) 0.0 K/mm3 02/05/20 16:14 Monocytes # (Manual) 0.4 K/mm3 (0.0-0.8) 02/05/20 16:14 Eosinophils # (Manual) 0.0 K/mm3 (0.0-0.4) 02/05/20 16:14 Basophils # (Manual) 0.0 K/mm3 (0.0-0.1) 02/05/20 16:14 Metamyelocytes # 0.0 K/mm3 02/05/20 16:14 Myelocytes # 0.0 K/mm3 02/05/20 16:14 Promyelocytes # 0.0 K/mm3 02/05/20 16:14 Blast Cells # 0.0 K/mm3 02/05/20 16:14 WBC Morphology Not Reportable 02/05/20 16:14 Hypersegmented Neuts Not Reportable 02/05/20 16:14 Hyposegmented Neuts Not Reportable 02/05/20 16:14 Hypogranular Neuts Not Reportable 02/05/20 16:14 Smudge Cells Not Reportable 02/05/20 16:14 Toxic Granulation Not Reportable 02/05/20 16:14 Toxic Vacuolation Not Reportable 02/05/20 16:14 Dohle Bodies Not Reportable 02/05/20 16:14 Pelger-Huet Anomaly Not Reportable 02/05/20 16:14 Esperanza Rods Not Reportable 02/05/20 16:14 Platelet Estimate Not Reportable 02/05/20 16:14 Clumped Platelets Few 02/05/20 16:14 Plt Clumps, EDTA Not Reportable 02/05/20 16:14 Large Platelets Not Reportable 02/05/20 16:14 Giant Platelets Not Reportable 02/05/20 16:14 Platelet Satelliting Not Reportable 02/05/20 16:14 Plt Morphology Comment Not Reportable 02/05/20 16:14 RBC Morphology Not Reportable 02/05/20 16:14 Dimorphic RBCs Not Reportable 02/05/20 16:14 Polychromasia Not Reportable 02/05/20 16:14 Hypochromasia 1+ 02/05/20 16:14 Poikilocytosis Not Reportable 02/05/20 16:14 Anisocytosis 1+ 02/05/20 16:14 Microcytosis Few 02/05/20 16:14 Macrocytosis Not Reportable 02/05/20 16:14 Spherocytes Not Reportable 02/05/20 16:14 Pappenheimer Bodies Not Reportable 02/05/20 16:14 Sickle Cells Not Reportable 02/05/20 16:14 Target Cells Not Reportable 02/05/20 16:14 Tear Drop Cells Not Reportable 02/05/20 16:14 Ovalocytes Not Reportable 02/05/20 16:14 Helmet Cells Not Reportable 02/05/20 16:14 [place] Bodies Not Reportable 02/05/20 16:14 [place] Rings Not Reportable 02/05/20 16:14 [place] Cells Not Reportable 02/05/20 16:14 Bite Cells Not Reportable 02/05/20 16:14 Crenated Cell Not Reportable 02/05/20 16:14 Elliptocytes Not Reportable 02/05/20 16:14 Acanthocytes (Spur) Not Reportable 02/05/20 16:14 Rouleaux Not Reportable 02/05/20 16:14 Hemoglobin C Crystals Not Reportable 02/05/20 16:14 Schistocytes Not Reportable 02/05/20 16:14 Malaria parasites Not Reportable 02/05/20 16:14 Bobby Bodies Not Reportable 02/05/20 16:14 Hem Pathologist Commnt No 02/05/20 16:14 D-Dimer 545.57 ng/mlDDU (0-234) H 02/24/20 11:14 Sodium 144 mmol/L (137-145) 03/06/20 04:45 Potassium 3.1 mmol/L (3.6-5.0) L 03/06/20 04:45 Chloride 110.2 mmol/L (98-107) H 03/06/20 04:45 Carbon Dioxide 23 mmol/L (22-30) 03/06/20 04:45 Anion Gap 14 mmol/L 03/06/20 04:45 BUN 16 mg/dL (9-20) 03/06/20 04:45 Creatinine 0.9 mg/dL (0.8-1.3) 03/06/20 04:45 Estimated GFR > 60 ml/min 03/06/20 04:45 BUN/Creatinine Ratio 18 % 03/06/20 04:45 Glucose 94 mg/dL (75-100) 03/06/20 04:45 POC Glucose 79 (70-105) 02/14/20 08:25 Hemoglobin A1c 5.4 % (4-6) 02/06/20 04:58 Calcium 9.6 mg/dL (8.4-10.2) 03/06/20 04:45 Phosphorus 3.30 mg/dL (2.5-4.5) 02/19/20 05:41 Magnesium 1.70 mg/dL (1.7-2.3) 02/19/20 05:41 Ferritin 367.4 ng/mL (30.0-300.0) H 02/24/20 11:14 Total Bilirubin 0.50 mg/dL (0.1-1.2) 02/24/20 11:14 Direct Bilirubin 0.3 mg/dL (0-0.2) H 02/05/20 17:51 Indirect Bilirubin 0.5 mg/dL 02/05/20 17:51 AST 70 units/L (5-40) H 02/24/20 11:14 ALT 60 units/L (7-56) H 02/24/20 11:14 Alkaline Phosphatase 101 units/L (35-129) 02/24/20 11:14 Ammonia 36.0 umol/L (25-60) 02/26/20 10:33 Lactate Dehydrogenase 252 units/L (91-180) H 02/24/20 11:14 C-Reactive Protein 2.90 mg/dL (0.00-1.30) H 02/24/20 11:14 Total Protein 8.9 g/dL (6.3-8.2) H 02/24/20 11:14 Albumin 3.2 g/dL (3.9-5) L 02/24/20 11:14 Albumin/Globulin Ratio 0.6 % 02/24/20 11:14 Urine Color Yellow (Yellow) 02/05/20 17:47 Urine Turbidity Clear (Clear) 02/05/20 17:47 Urine pH 5.0 (5.0-7.0) 02/05/20 17:47 Ur Specific [place] 1.020 (1.003-1.030) 02/05/20 17:47 Urine Protein 100 mg/dl mg/dL (Negative) 02/05/20 17:47 Urine Glucose (UA) Neg mg/dL (Negative) 02/05/20 17:47 Urine Ketones 20 mg/dL (Negative) 02/05/20 17:47 Urine Blood Sm (Negative) 02/05/20 17:47 Urine Nitrite Neg (Negative) 02/05/20 17:47 Urine Bilirubin Neg (Negative) 02/05/20 17:47 Urine Urobilinogen 2.0 mg/dL (<2.0) 02/05/20 17:47 Ur Leukocyte Esterase Neg (Negative) 02/05/20 17:47 Urine WBC (Auto) 2.0 /HPF (0.0-6.0) 02/05/20 17:47 Urine RBC (Auto) 1.0 /HPF (0.0-6.0) 02/05/20 17:47 U Epithel Cells (Auto) < 1.0 /HPF (0-13.0) 02/05/20 17:47 Urine Mucus Few /HPF 02/05/20 17:47 Salicylates < 0.3 mg/dL (2.8-20.0) L 02/05/20 16:14 Urine Opiates Screen Presumptive negative 02/05/20 17:47 Urine Methadone Screen Presumptive negative 02/05/20 17:47 Acetaminophen 5.0 ug/mL (10.0-30.0) L 02/05/20 16:14 Ur Barbiturates Screen Presumptive negative 02/05/20 17:47 Ur Phencyclidine Scrn Presumptive negative 02/05/20 17:47 Ur Amphetamines Screen Presumptive negative 02/05/20 17:47 U Benzodiazepines Scrn Presumptive negative 02/05/20 17:47 Urine Cocaine Screen Presumptive negative 02/05/20 17:47 U Marijuana (THC) Screen Presumptive negative 02/05/20 17:47 Drugs of Abuse Note Disclamer 02/05/20 17:47 Plasma/Serum Alcohol < 0.01 % (0-0.07) 02/05/20 16:14 Lymph Enumerat CD4/CD8 0.35 (0.86-5.00) L 02/21/20 15:12 % CD3 Cells 83 % (57-85) 02/21/20 15:12 Absolute CD3 Count 2093 cells/uL (840-3060) 02/21/20 15:12 % CD4 Cells 22 % (30-61) L 02/21/20 15:12 Absolute CD4 Count 529 cells/uL (490-1740) 02/21/20 15:12 % CD8 Cells 61 % (12-42) H 02/21/20 15:12 Absolute CD8 Count 1499 cells/uL (180-1170) H 02/21/20 15:12 % CD19 Cells 8 % (6-29) 02/21/20 15:12 Absolute CD19 Count 194 cells/uL (110-660) 02/21/20 15:12 Coronavirus (PCR) Positive (Negative) A 10/25/20 09:00 HIV-1 RNA PCR copies/ml 283 Copies/mL H 02/23/20 16:10 HIV-1 RNA (PCR) log 2.45 Log cps/mL H 02/23/20 16:10 [place]/IV: Voiding Method Condom Catheter IV Catheter Type [Left INT / Saline Lock Antecubital] IV Catheter Type [Right Upper INT / Saline Lock arm] IV Catheter Type [Right Peripheral IV Antecubital] IV Catheter Type [Right Wrist] Peripheral IV IV Catheter Type [Left Forearm INT / Saline Lock ] IV Catheter Type [Right INT / Saline Lock Forearm] IV Catheter Type [Right Hand] Peripheral IV Active Medications - Current Medications Current Medications: Generic Name Dose Route Start Last Admin Trade Name Freq PRN Reason Stop Dose Admin Acetaminophen 650 mg 02/05/20 22:45 03/06/20 22:37 Tylenol PO 650 mg Q4H PRN Administration Pain MILD(1-3)/Fever >100.5/GAMBINO Aspirin 325 mg 02/08/20 18:00 03/07/20 09:59 Aspirin PO 325 mg QDAY MICHAEL Administration Clopidogrel Bisulfate 75 mg 02/08/20 18:00 03/07/20 09:37 Plavix PO 75 mg QDAY MICHAEL Administration Emtricitabine 200 mg 02/21/20 13:00 03/07/20 09:40 Emtriva PO 200 mg QDAY MICHAEL Administration Enoxaparin Sodium 40 mg 02/21/20 22:00 03/06/20 22:40 Enoxaparin SUB-Q 40 mg QDAY@2200 MICHAEL Administration Protocol Famotidine 20 mg 02/07/20 22:00 03/07/20 09:37 Pepcid PO 20 mg BID MICHAEL Administration Fish Oil 2,000 mg 02/17/20 13:00 03/07/20 09:36 Fish Oil PO 2,000 mg BID MICHAEL Administration Folic Acid 1 mg 02/17/20 10:00 03/07/20 09:41 Folvite PO 1 mg QDAY MICHAEL Administration Labetalol HCl 10 mg 02/05/20 20:28 02/18/20 20:44 Labetalol IV 10 mg Q3HR PRN Administration Increased Blood Pressure Lorazepam 2 mg 02/21/20 11:55 03/07/20 14:10 Ativan IV 2 mg Q4H PRN Administration Agitation Lorazepam 2 mg 11/02/20 10:00 03/05/20 02:25 Ativan IM 2 mg Q4H PRN Administration Agitation Melatonin 5 mg 02/17/20 22:00 03/06/20 22:39 Melatonin PO 5 mg QHS MICHAEL Administration Metoclopramide HCl 10 mg 02/05/20 22:45 Reglan IV Q6H PRN Nausea And Vomiting Metoprolol Tartrate 25 mg 02/16/20 19:43 03/07/20 09:58 Metoprolol PO 25 mg BID MICHAEL Administration Nicotine 21 mg 02/16/20 02:23 03/07/20 09:37 Habitrol TD 21 mg QDAY MICHAEL Administration Nifedipine 30 mg 02/16/20 22:00 03/07/20 09:37 Procardia Xl PO 30 mg Q12HR MICHAEL Administration Olanzapine 5 mg 02/17/20 22:00 03/06/20 22:39 Zyprexa PO 5 mg QHS MICHAEL Administration Ondansetron HCl 4 mg 02/05/20 22:45 02/10/20 01:28 Zofran IV 4 mg Q8H PRN Administration Nausea And Vomiting Oxycodone/Acetaminophen 1 tab 02/05/20 22:45 03/03/20 14:32 Percocet 5/325 PO 1 tab Q6H PRN Administration Pain, Moderate (4-6) Potassium Chloride 30 meq 03/05/20 10:00 03/07/20 10:00 K-Dur PO 30 meq QDAY MICHAEL Administration Sodium Chloride 10 ml 02/06/20 10:00 03/07/20 09:41 Sodium Chloride Flush Syringe 10 Ml IV 10 ml BID MICHAEL Administration Sodium Chloride 10 ml 02/05/20 22:45 02/26/20 11:45 Sodium Chloride Flush Syringe 10 Ml IV 10 ml PRN PRN Administration LINE FLUSH Tenofovir Disoproxil Fumarate 300 mg 02/21/20 13:00 03/07/20 09:40 Viread PO 300 mg QDAY MICHAEL Administration Thiamine HCl 100 mg 02/17/20 10:00 03/07/20 09:59 Vitamin B-1 PO 100 mg QDAY MICHAEL Administration Zolpidem Tartrate 5 mg 02/17/20 22:00 03/06/20 22:39 Ambien PO 5 mg QHS MICHAEL Administration Nutrition/Malnutrition Assess - Dietary Evaluation Nutrition/Malnutrition Findings: Nutrition Notes Start: 10/16/20 11: 26 Freq: Status: Active Protocol: Document 03/07/20 13:28 LM (Rec: 03/07/20 13:41 LM [id number]) Nutrition Notes Initial or Follow up Reassessment Current Diagnosis Hypertension,Hyperlipidemia Other Pertinent Diagnosis ETOH withdrawals, HIV, foot fracture Current Diet Regular Labs/Tests Reviewed Pertinent Medications Folic acid Thiamine K-Dur Height 6 ft 1 in Weight 68.2 kg [place] Body Weight (kg) 83.63 BMI 19.8 Weight Status Appropriate Subjective/Other Information Pt ate 50% of lunch. Pt is not a breakfast eater. Percent of energy/protein needs met: 40%/41% Burn Absent Trauma Absent GI Symptoms None Usual Diet at Home Meals on Wheels Current % PO Negligible Minimum of two criteria No physical signs of malnutrition #2 Nutrition Diagnosis Inadequate oral intake Diagnosis Progress(for reassessment Continues documentation) #1 Nutrition Diagnosis Food and nutrition-related knowledge deficit,Other: ( Specify in comment below) Diagnosis Progress(for reassessment Continues documentation) Is patient on ventilator? No Is Patient Ambulatory and/or Out of Bed No REE-([place]-St. Jeor-confined to bed) 5743.999 Calculation Used for Recommendations [place]-St Jeor Additional Notes Pro: 70-88 g (0.8-1 g/kg) Fluid: 1ml/kcal Nutrition Intervention Change Diet Order: Continue regular Add Supplement/Snack (indicate name/kcal Ensure Enlive Daily /protein ) Provides kCal: 350 Provides Protein (gm) 20 Goal #1 Pt will meet at least 75% of energy and protein needs. Anticipated Discharge Needs: Heart healthy diet Follow-Up By: 03/09/20 Additional Comments F/U for PO/ONS intakes
[2020-03-07] MEDS: LORazepam 2 MG/ML VIAL IM PRN (20:50)
[2020-03-07] MEDS: ENOXAPARIN 40 MG/0.4 ML INJ SUB-Q SCH (22:52)
[2020-03-07] MEDS: ZOLPIDEM 5 MG TAB PO SCH (22:53)
[2020-03-07] MEDS: MELATONIN 5 MG TAB PO SCH (23:12)
[2020-03-08] MEDS: LORazepam 2 MG/ML VIAL IM PRN (01:50)
[2020-03-08 05:43] VITALS: BP 132/91
[2020-03-08] MEDS: NICOTINE 21 MG/24 HR PATCH TD SCH (10:41)
[2020-03-08] MEDS: TENOFOVIR 300 MG TAB PO SCH (10:42)
[2020-03-08] MEDS: EMTRICITABINE 200 MG CAP PO SCH (10:42)
[2020-03-08] MEDS: OMEGA-3 FATTY ACIDS/FISH OIL 1 GRAM CAP PO SCH (10:44)
[2020-03-08] MEDS: METOPROLOL TARTRATE 25 MG TAB PO SCH (10:44)
[2020-03-08] MEDS: DOLUTEGRAVIR 50 MG TAB PO SCH (10:44)
[2020-03-08] MEDS: FAMOTIDINE 20 MG TAB PO SCH (10:49)
[2020-03-08] MEDS: FOLIC ACID 1 MG TAB PO SCH (10:49)
[2020-03-08] MEDS: THIAMINE 100 MG TAB PO SCH (10:49)
[2020-03-08] MEDS: CLOPIDOGREL 75 MG TAB PO SCH (10:49)
[2020-03-08] MEDS: ASPIRIN 325 MG TAB PO SCH (10:49)
[2020-03-08] MEDS: POTASSIUM CHLORIDE ER 10 MEQ TAB PO SCH (10:49)
[2020-03-08] MEDS: NIFEdipine XL 30 MG TAB PO SCH (10:49)
--- NOTE | 2020-03-08 11:01 | Discharge Summary ---
Providers - Providers Date of Admission: 02/05/20 20:15 Attending physician: ESPERANZA BENJAMIN MD 02/06/20 08:02 Consult to Physician [CONS] Routine Comment: Consulting Provider: ESTELA ALMANZAR Physician Instructions: Reason For Exam: Left foot fracture 02/06/20 18:24 Physical Therapy Evaluation and Treat [CONS] Routine Comment: Reason For Exam: Gait training Weight bearing status?: Toe touch Assistive devices?: Yes If so list: Walker 02/08/20 12:04 Occupational Therapy Evaluate and Treat [CONS] Routine Comment: Reason For Exam: self care of deficits 02/12/20 11:15 Physical Therapy Evaluation and Treat [CONS] Routine Comment: Reason For Exam: deconditioning 02/17/20 14:27 psychiatry consult [Consult to Mental Health] [CONS] Routine Reason For Exam: psychosis/delirium 02/20/20 11:05 Consult to Physician [CONS] Routine Comment: Consulting Provider: JUSTIN MARIO Physician Instructions: Reason For Exam: PUI/fever/h/o HIV 02/21/20 18:43 Speech Therapy Evaluation and Treat [CONS] Routine Reason For Exam: coughs while eating 02/22/20 11:29 Consult to Wound/ET Nurse [CONS] Urgent Reason For Exam: wound eval right foot crush injury eval for pus 02/24/20 07:48 Physical Therapy Evaluation and Treat [CONS] Urgent Comment: Reason For Exam: Physical Theraphy to reeval & Treat 02/24/20 19:12 Consult to Physician [CONS] Routine Comment: Consulting Provider: MALDONADO BOOKER Physician Instructions: Reason For Exam: Lethargy/Covid positive/history of HIV/CT head neg 02/26/20 18:54 Consult to Wound/ET Nurse [CONS] Routine Reason For Exam: wound eval 02/28/20 21:31 Consult to PICC Line RN [CONS] Stat Reason For Exam: unable to obtain INT Type Line:: Midline 03/03/20 14:24 Consult to Wound/ET Nurse [CONS] Stat Reason For Exam: wound eval for right wrist Primary care physician: GREENHOUSE TECHNICIAN Hospitalization Condition: Stable Hospital course: (1) Metabolic encephalopathy Current Visit: Yes Status: Acute Plan to address problem: Supportive care, seizure precautions, aspiration precautions, fall precautions, (2) [id number] Current Visit: Yes Status: Acute Plan to address problem: Patient currently asymptomatic with resolution of symptoms. Patient was found to be coronavirus positive on 02/21/2020.. (3) HIV (human immunodeficiency virus infection) Current Visit: Yes Status: Chronic Qualifiers: HIV symptom status: asymptomatic Qualified Code(s): Z21 - Asymptomatic frank n immunodeficiency virus [HIV] infection status Plan to address problem: Continue current antiretroviral therapy, outpatient infectious disease follow- up, supportive care. (4) Hypertension Current Visit: Yes Status: Chronic Qualifiers: Hypertension type: essential hypertension Qualified Code(s): I10 - Essential (primary) hypertension Plan to address problem: Monitor blood pressure every shift, continue medical management (5) Severe malnutrition Current Visit: Yes Status: Acute Plan to address problem: Increase protein intake, dietary supplementation, (6) DVT prophylaxis Current Visit: Yes Status: Acute Plan to address problem: SCD to bilateral lower extremities while in bed, prophylactic anticoagulation (7) Debility Current Visit: Yes Status: Acute Plan to address problem: Physical therapy consulted, continue current therapy. Discharge planning to SNF when bed available. History Interval history: 54-year-old male hospital day 32 with toxic metabolic encephalopathy, coronavirus infection, AIDS, alcohol withdrawal, who is currently pending discharge to senior care facility. Patient remains confused and lethargic and unable to provide history. No reported nursing events. No acute decompensation overnight. No significant improvement. Disposition: DC-07 LEFT AGAINST MED ADVICE Core Measure Documentation - Palliative Care Palliative Care/ Comfort Measures: Not Applicable - Core Measures Any of the following diagnoses?: none Exam - Constitutional Vitals: Temp Pulse Resp BP Pulse Ox 98.6 F 91 H 20 132/91 100 03/08/20 05:40 03/08/20 05:40 03/08/20 05:40 03/08/20 05:40 03/08/20 05:40 Plan Activity: advance as tolerated, fall precautions Diet: low fat Special Instructions: record daily weights, record daily BP diary, smoking cessation, physical therapy, occupational therapy Follow up with: JAVIER ZARATE MD [Primary Care Provider] - 3-5 Days ESTELA ALMANZAR MD [Staff Physician] - 3-5 Days Prescriptions: Melatonin [Melatonin 5MG TAB] 5 mg PO QHS #30 tablet OLANzapine [ZyPREXA] 5 mg PO QHS #30 tablet [place]-3 Fatty Acids/Fish Oil [Fish Oil] 2,000 mg PO BID #30 capsule Folic Acid [Folvite] 1 mg PO QDAY #30 tablet Nicotine [Habitrol] 21 mg TD QDAY #7 patch Famotidine [Pepcid] 20 mg PO BID #30 tablet NIFEdipine XL [Procardia Xl] 30 mg PO Q12HR #60 tablet Thiamine [Vitamin B-1] 100 mg PO QDAY #30 tablet
== END 2020-03-08 11:30 | disposition left against medical advice (07) | DRG 177 ==
LOC: ED 14:07 → 4A 20:15 → OBSVTOIN 20:15 → 4A 20:21 → 3A 02-21 08:57
PROVIDERS: ADMIT Internal Medicine; ATTEND Internal Medicine
DX: U07.1 COVID-19 (principal); G92 Toxic encephalopathy; E43 Unspecified severe protein-calorie malnutrition; Z68.1 Body mass index [BMI] 19.9 or less, adult; F10.231 Alcohol dependence with withdrawal delirium; S92.302A Fracture of unspecified metatarsal bone(s), left foot, initial encounter for closed fracture; G31.2 Degeneration of nervous system due to alcohol; I16.0 Hypertensive urgency; J45.909 Unspecified asthma, uncomplicated; E78.5 Hyperlipidemia, unspecified; Z53.29 Procedure and treatment not carried out because of patient's decision for other reasons; F17.200 Nicotine dependence, unspecified, uncomplicated; Z88.8 Allergy status to other drugs, medicaments and biological substances; Z79.82 Long term (current) use of aspirin; X58.XXXA Exposure to other specified factors, initial encounter; Y93.89 Activity, other specified; Y92.89 Other specified places as the place of occurrence of the external cause; Y99.8 Other external cause status; Z21 Asymptomatic human immunodeficiency virus [HIV] infection status
CPT/HCPCS: 36415; 70450; 71045; 71275; 80048; 80053; 80076; 80307; 80320; 81001; 82024; 82140; 82728; 82962; 83036; 83615; 83735; 84100; 85007; 85025; 85379; 86140; 87040; 87086; 87536; 90715; 93970; 96365; 96375; G0378; G0480; J0456; J0696; J1100; J1170; J1630; J1650; J2060; J2270; J2405; J2765; J3411; J3486; J7030; J7042; J7050; Q9967; U0003

== ENCOUNTER 2020-09-28 08:20 | Emergency (ER) | payer MEDICARE ==
[2020-09-28] MEDS ORDERED: levETIRAcetam 1000 MG/NS 0.75% 1,000 MG/100 ML BAG IV ONE (08:49)
--- NOTE | 2020-09-28 08:56 | Emergency Department Report ---
HPI - General Chief Complaint: Seizure Time Seen by Provider: 09/28/20 08:35 - HPI HPI: Room 5 The patient is a 54-year-old male present with a chief complaint of seizure. The patient states he recalls sitting in his car and feeling dizzy and when he c joana to call 911. EMS states the patient was reported to have a generalized tonic-clonic seizure in his car. Patient denies any previous history of seizures. Patient states he has not consumed alcohol in at least 1 month. When asked how he is feeling currently the patient states he feels "all right." ED Past Medical Hx - Past Medical History Hx Hypertension: Yes Hx Asthma: Yes Hx Tuberculosis: Yes (POSITIVE SKIN TEST,TOOK [place] , NEG CXR 2004) Hx HIV: Yes (Compliant with medication but unknown CD4 count) Additional medical history: 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 - Surgical History Hx Coronary Stent: Yes (X 2 2013) Additional Surgical History: tracheostomy- secondary to "throat infection/couldn't breathe" - Family History Family history: no significant - Social History Smoking Status: Current Every Day Smoker (1/2 pack/day) Substance Use Type: None (Denies illicit drug use) - Medications Home Medications: Home Medications Medication Instructions Recorded Confirmed Last Taken Type Emtricitabin/Tenofovir [TRUVADA 1 tab PO QDAY 10/01/13 02/06/20 02/09/18 09:00 History 200-300 mg] Nitroglycerin [Nitrostat] 0.4 mg SL .Q5MIN PRN #90 tab 10/07/13 02/06/20 09/26/17 21:00 Rx Aspirin 325 mg PO QDAY #30 tablet 08/20/16 02/06/20 02/05/18 09:00 Rx Clopidogrel [Plavix] 75 mg PO QDAY #30 tablet 08/20/16 02/06/20 02/10/18 09:00 Rx Lopinavir/Ritonavir (Nf) [Kaletra 1 each PO BID #60 tablet 08/20/16 02/06/20 02/09/18 09:00 Rx 200-50 mg (Nf)] Metoprolol [Lopressor TAB] 12.5 mg PO BID #60 tablet 08/20/16 02/06/20 02/05/18 09:00 Rx Mirtazapine [Remeron] 45 mg PO QHS #30 tablet 08/20/16 02/06/20 02/05/18 09:00 Rx Pravastatin Sodium [Pravastatin] 10 mg PO QHS #30 tablet 08/20/16 02/06/20 02/05/18 09:00 Rx HYDROcodone/ACETAMINOPHEN 2 each PO Q6HR PRN #30 tablet 11/26/17 02/06/20 Unknown Rx [Hydrocodone-Acetamin 5-325 mg] Ondansetron [Zofran ODT TAB] 4 mg PO Q6H PRN 02/05/18 02/06/20 Unknown History Famotidine [Pepcid] 20 mg PO BID #30 tablet 03/08/20 Unknown Rx Folic Acid [Folvite] 1 mg PO QDAY #30 tablet 03/08/20 Unknown Rx Melatonin [Melatonin 5MG TAB] 5 mg PO QHS #30 tablet 03/08/20 Unknown Rx NIFEdipine XL [Procardia Xl] 30 mg PO Q12HR #60 tablet 03/08/20 Unknown Rx Nicotine [Habitrol] 21 mg TD QDAY #7 patch 03/08/20 Unknown Rx OLANzapine [ZyPREXA] 5 mg PO QHS #30 tablet 03/08/20 Unknown Rx [place]-3 Fatty Acids/Fish Oil [Fish 2,000 mg PO BID #30 capsule 03/08/20 Unknown Rx Oil] Thiamine [Vitamin B-1] 100 mg PO QDAY #30 tablet 03/08/20 Unknown Rx ED Review of Systems ROS: Stated complaint: SEIZURE Other details as noted in HPI Constitutional: no symptoms reported Eyes: denies: eye pain ENT: denies: throat pain Respiratory: no symptoms reported Cardiovascular: denies: chest pain Endocrine: no symptoms reported Gastrointestinal: denies: abdominal pain Genitourinary: denies: dysuria Musculoskeletal: denies: back pain Neurological: denies: headache Physical Exam - Physical Exam Vital Signs: Vital Signs 09/28/20 08:28 Temperature 98.4 F Pulse Rate 95 H Respiratory 19 Rate Blood Pressure 127/71 O2 Sat by Pulse 94 Oximetry Physical Exam: GENERAL: The patient is well-developed well-nourished male lying on stretcher not appearing to be in acute distress. [] HEENT: Normocephalic. Atraumatic. Extraocular motions are intact. Patient has moist mucous membranes. NECK: Supple. No meningitic signs are noted. Trachea midline CHEST/LUNGS: Clear to auscultation. There is no respiratory distress noted. HEART/CARDIOVASCULAR: Regular. There is no tachycardia. There is no gallop rub or murmur. ABDOMEN: Abdomen is soft, nontender. Patient has normal bowel sounds. There is no abdominal distention. SKIN: There is no rash. There is no edema. There is no diaphoresis. NEURO: The patient is awake, alert, and oriented. The patient is cooperative. The patient has no focal neurologic deficits. The patient has normal speech. Cranial nerves II through XII grossly intact MUSCULOSKELETAL: There is no evidence of acute injury. ED Course Vital Signs 09/28/20 08:28 Temperature 98.4 F Pulse Rate 95 H Respiratory 19 Rate Blood Pressure 127/71 O2 Sat by Pulse 94 Oximetry ED Medical Decision Making - Lab Data Result diagrams: 09/28/20 09:37 09/28/20 10:58 Laboratory Tests 09/28/20 09/28/20 09/28/20 09:37 09:37 10:58 WBC 4.2 L RBC 4.52 Hgb 11.7 L Hct 35.8 MCV 79 L MCH 26 L MCHC 33 RDW 24.6 H Plt Count 255 Add Manual Diff Complete Total Counted 100 Seg Neuts % (Manual) 70.0 Lymphocytes % (Manual) 22.0 Monocytes % (Manual) 7.0 Metamyelocytes % 1.0 Nucleated RBC % Not Reportable Seg Neutrophils # Man 2.9 Band Neutrophils # 0.0 Lymphocytes # (Manual) 0.9 L Abs React Lymphs (Man) 0.0 Monocytes # (Manual) 0.3 Eosinophils # (Manual) 0.0 Basophils # (Manual) 0.0 Metamyelocytes # 0.0 Myelocytes # 0.0 Promyelocytes # 0.0 Blast Cells # 0.0 WBC Morphology Not Reportable Hypersegmented Neuts Not Reportable Hyposegmented Neuts Not Reportable Hypogranular Neuts Not Reportable Smudge Cells Not Reportable Toxic Granulation Not Reportable Toxic Vacuolation Not Reportable Dohle Bodies Not Reportable Pelger-Huet Anomaly Not Reportable Esperanza Rods Not Reportable Platelet Estimate Consistent w auto Clumped Platelets Not Reportable Plt Clumps, EDTA Not Reportable Large Platelets Few Giant Platelets Not Reportable Platelet Satelliting Not Reportable Plt Morphology Comment Not Reportable RBC Morphology Not Reportable Dimorphic RBCs Not Reportable Polychromasia Not Reportable Hypochromasia 2+ Poikilocytosis Not Reportable Anisocytosis 2+ Microcytosis Not Reportable Macrocytosis Not Reportable Spherocytes Not Reportable Pappenheimer Bodies Not Reportable Sickle Cells Not Reportable Target Cells Not Reportable Tear Drop Cells Not Reportable Ovalocytes Not Reportable Helmet Cells Not Reportable [place] Bodies Not Reportable [place] Rings Not Reportable Master Cells Not Reportable Bite Cells Not Reportable Crenated Cell Not Reportable Elliptocytes Not Reportable Acanthocytes (Spur) Not Reportable Rouleaux Not Reportable Hemoglobin C Crystals Not Reportable Schistocytes Not Reportable Malaria parasites Not Reportable Bobby Bodies Not Reportable Hem Pathologist Commnt No Sodium 137 Potassium 4.0 Chloride 105.0 Carbon Dioxide 23 Anion Gap 13 BUN 14 Creatinine 1.1 Estimated GFR > 60 BUN/Creatinine Ratio 13 Glucose 68 L Calcium 8.8 Magnesium 2.20 Total Creatine Kinase Plasma/Serum Alcohol < 0.01 09/28/20 10:58 WBC RBC Hgb Hct MCV MCH MCHC RDW Plt Count Add Manual Diff Total Counted Seg Neuts % (Manual) Lymphocytes % (Manual) Monocytes % (Manual) Metamyelocytes % Nucleated RBC % Seg Neutrophils # Man Band Neutrophils # Lymphocytes # (Manual) Abs React Lymphs (Man) Monocytes # (Manual) Eosinophils # (Manual) Basophils # (Manual) Metamyelocytes # Myelocytes # Promyelocytes # Blast Cells # WBC Morphology Hypersegmented Neuts Hyposegmented Neuts Hypogranular Neuts Smudge Cells Toxic Granulation Toxic Vacuolation Dohle Bodies Pelger-Huet Anomaly Esperanza Rods Platelet Estimate Clumped Platelets Plt Clumps, EDTA Large Platelets Giant Platelets Platelet Satelliting Plt Morphology Comment RBC Morphology Dimorphic RBCs Polychromasia Hypochromasia Poikilocytosis Anisocytosis Microcytosis Macrocytosis Spherocytes Pappenheimer Bodies Sickle Cells Target Cells Tear Drop Cells Ovalocytes Helmet Cells Sargent-[place] Bodies [place] Rings Master Cells Bite Cells Crenated Cell Elliptocytes Acanthocytes (Spur) Rouleaux Hemoglobin C Crystals Schistocytes Malaria parasites Bobby Bodies Hem Pathologist Commnt Sodium Potassium Chloride Carbon Dioxide Anion Gap BUN Creatinine Estimated GFR BUN/Creatinine Ratio Glucose Calcium Magnesium Total Creatine Kinase 125 Plasma/Serum Alcohol - EKG Data -: EKG Interpreted by Me EKG shows normal: sinus rhythm Rate: normal - EKG Data When compared to previous EKG there are: previous EKG unavailable Interpretation: other (No ischemic changes seen) - Radiology Data Radiology results: pending (CT head) - Differential Diagnosis Seizure Critical care attestation.: If time is entered above; I have spent that time in minutes in the direct care of this critically ill patient, excluding procedure time. ED Disposition Clinical Impression: Seizure Disposition: [id number] LEFT AGAINST MED ADVICE Is pt being admited?: No Does the pt Need Aspirin: No Condition: Undetermined Referrals: PRIMARY CARE, [Primary Care Provider] - 3-5 Days Time of Disposition: 12:54 (Patient left AMA)
[2020-09-28 10:37] LABS: Hematocrit 35.8 % (35.5-45.6); Hemoglobin 11.7 gm/dl (11.8-15.2); Mean Corpuscular HGB Conc 33 % (32-34); Mean Corpuscular Volume 79 fl (84-94); Platelet Count 255 K/mm3 (140-440); Red Blood Count 4.52 M/mm3 (3.65-5.03); Red Cell Distribution Width 24.6 % (13.2-15.2)
[2020-09-28 10:54] VITALS: BP 125/74
[2020-09-28 11:29] LABS: Anisocytosis 2+; Hypochromasia 2+; Large Platelets Few; Platelet Estimate Consistent w Auto; Total Cells Counted 100
[2020-09-28 11:59] LABS: BUN/Creatinine Ratio 13; Blood Urea Nitrogen 14 mg/dL (9-20); Calcium 8.8 mg/dL (8.4-10.2); Hemolysis Index 19
--- NOTE | 2020-09-29 13:10 | Cat Scan Report ---
CT head/brain wo con INDICATION: New onset seizure. TECHNIQUE: All CT scans at this location are performed using CT dose reduction for ALARA by means of automated e xposure control. COMPARISON: Head CT on 02/20/2020 FINDINGS: There is no evidence of hemorrhage, hydrocephalus, brain edema, or mass effect/mass lesion. There is stable moderate chronic small vessel ischemic change in the cerebral white matter and mild volar brai n atrophy, similar to the prior exam. There is unchanged moderate mucosal thickening in the right maxillary sinus with otherwise clear para nasal sinuses. IMPRESSION: 1. No acute findings or adverse change from the prior study. Signer Name: Kimani Stinson MD Signed: 09/29/2020 1:06 PM Workstation Name: [id number]
--- NOTE | 2020-09-30 09:50 | Electrocardiograph Report ---
[facility] Test Date: 2020-09-28 Test Time: 08:46:17 Pat Name: MITZI SALAZAR Department: Room: Gender: M [employer]: MARIELA : 1965 Requested By: KAINNA POTTS Order Number: [id number] Reading MD: Jerry Godinez Measurements Intervals [place] Rate: 90 P: 66 ND: 151 QRS: 36 QRSD: 85 T: 89 QT: 364 QTc: 447 Interpretive Statements Sinus rhythm Consider anteroseptal infarct Nonspecific T abnormalities, lateral leads No previous ECG available for comparison Electronically Signed On 09-30-2020 9:50:25 EDT by Jerry Godinez
== END 2020-09-28 12:00 | disposition left against medical advice (07) ==
LOC: ED 08:20
DX: R56.9 Unspecified convulsions (principal); I10 Essential (primary) hypertension; J45.909 Unspecified asthma, uncomplicated; F17.200 Nicotine dependence, unspecified, uncomplicated; Z98.890 Other specified postprocedural states; Z79.899 Other long term (current) drug therapy; Z21 Asymptomatic human immunodeficiency virus [HIV] infection status; Z88.8 Allergy status to other drugs, medicaments and biological substances
CPT/HCPCS: 36415; 70450; 80048; 82550; 83735; 85007; 85025; 93005; 96374; 99284; J1953; 80320; G0480

== ENCOUNTER 2020-09-29 11:33 | Emergency (ER) | payer MEDICARE ==
[2020-09-29] MEDS ORDERED: levETIRAcetam 1,000 MG in SODIUM CHLORIDE 0.9% 100 ML IV ONE (12:00)
[2020-09-29] MEDS ORDERED: levETIRAcetam 1000 MG/NS 0.75% 1,000 MG/100 ML BAG IV ONE (12:00)
--- NOTE | 2020-09-29 13:37 | Emergency Department Report ---
ED Seizure HPI - General Chief Complaint: Seizure Stated Complaint: SEIZURE Time Seen by Provider: 09/29/20 11:49 Source: patient, EMS Mode of arrival: Stretcher Limitations: No Limitations - History of Present Illness Initial Comments: 54-year-old male, history of HIV, hypertension, alcohol and drug abuse, CAD, presents to ED following seizure. Patient apparently had a seizure on yesterday and was seen in the ED. Patient left AMA. CT head from yesterday was negative. Today, patient states [place] was at the bank and had a seizure. He has no complai nts at this time. Patient reports that he used to abuse alcohol daily, however his last drink was 2 or 3 weeks ago. He states he stopped drinking because "it was making me sick." Patient denies history of alcohol withdrawal seizures. Patient denies any drug use. History of cocaine use in the past. Patient denies any recent illness, fever, vomiting, abdominal pain, chest pain, shortness of breath, headache. MD Complaint: seizure -: This morning Witnessed:: Yes Place: other Possible Precipitating Event: none Associated Symptoms: denies: chest pain, cough, fever/chills, shortness of breath Treatments Prior to Arrival: none - Related Data Home Medications Medication Instructions Recorded Confirmed Last Taken Emtricitabin/Tenofovir [TRUVADA 1 tab PO QDAY 10/01/13 02/06/20 02/09/18 09:00 200-300 mg] Ondansetron [Zofran ODT TAB] 4 mg PO Q6H PRN 02/05/18 02/06/20 Unknown Previous Rx's Medication Instructions Recorded Last Taken Type Nitroglycerin [Nitrostat] 0.4 mg SL .Q5MIN PRN #90 tab 10/07/13 09/26/17 21:00 Rx Aspirin 325 mg PO QDAY #30 tablet 08/20/16 02/05/18 09:00 Rx Clopidogrel [Plavix] 75 mg PO QDAY #30 tablet 08/20/16 02/10/18 09:00 Rx Lopinavir/Ritonavir (Nf) [Kaletra 1 each PO BID #60 tablet 08/20/16 02/09/18 09:00 Rx 200-50 mg (Nf)] Metoprolol [Lopressor TAB] 12.5 mg PO BID #60 tablet 08/20/16 02/05/18 09:00 Rx Mirtazapine [Remeron] 45 mg PO QHS #30 tablet 08/20/16 02/05/18 09:00 Rx Pravastatin Sodium [Pravastatin] 10 mg PO QHS #30 tablet 08/20/16 02/05/18 09:00 Rx HYDROcodone/ACETAMINOPHEN 2 each PO Q6HR PRN #30 tablet 11/26/17 Unknown Rx [Hydrocodone-Acetamin 5-325 mg] Famotidine [Pepcid] 20 mg PO BID #30 tablet 03/08/20 Unknown Rx Folic Acid [Folvite] 1 mg PO QDAY #30 tablet 03/08/20 Unknown Rx Melatonin [Melatonin 5MG TAB] 5 mg PO QHS #30 tablet 03/08/20 Unknown Rx NIFEdipine XL [Procardia Xl] 30 mg PO Q12HR #60 tablet 03/08/20 Unknown Rx Nicotine [Habitrol] 21 mg TD QDAY #7 patch 03/08/20 Unknown Rx OLANzapine [ZyPREXA] 5 mg PO QHS #30 tablet 03/08/20 Unknown Rx [place]-3 Fatty Acids/Fish Oil [Fish 2,000 mg PO BID #30 capsule 03/08/20 Unknown Rx Oil] Thiamine [Vitamin B-1] 100 mg PO QDAY #30 tablet 03/08/20 Unknown Rx levETIRAcetam [Keppra TAB] 500 mg PO BID #60 tablet 09/29/20 Unknown Rx Allergies Allergy/AdvReac Type Severity Reaction Status Date / Time sulfamethoxazole AdvReac Swelling Verified 11/22/17 17:20 [From Bactrim] trimethoprim [From Bactrim] AdvReac Swelling Verified 11/22/17 17:20 ED Review of Systems ROS: Stated complaint: SEIZURE Other details as noted in HPI Comment: All other systems reviewed and negative Constitutional: denies: chills, fever Respiratory: denies: cough, shortness of breath Cardiovascular: denies: chest pain Gastrointestinal: denies: abdominal pain, vomiting, diarrhea Neurological: other (Seizure reported). denies: headache ED Past Medical Hx - Past Medical History Hx Hypertension: Yes Hx Heart Attack/AMI: No Hx Congestive Heart Failure: No Hx Diabetes: No Hx Asthma: Yes Hx COPD: No Hx Tuberculosis: Yes (POSITIVE SKIN TEST,TOOK [place] , NEG CXR 2004) Hx HIV: Yes (Compliant with medication but unknown CD4 count) Additional medical history: 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 - Surgical History Hx Coronary Stent: Yes (X 2 2013) Additional Surgical History: tracheostomy- secondary to "throat infection/couldn't breathe" - Social History Smoking Status: Current Every Day Smoker Substance Use Type: Alcohol - Medications Home Medications: Home Medications Medication Instructions Recorded Confirmed Last Taken Type Emtricitabin/Tenofovir [TRUVADA 1 tab PO QDAY 10/01/13 02/06/20 02/09/18 09:00 History 200-300 mg] Nitroglycerin [Nitrostat] 0.4 mg SL .Q5MIN PRN #90 tab 10/07/13 02/06/2009/26 21:00 Rx Aspirin 325 mg PO QDAY #30 tablet 08/20/16 02/06/20 02/05/18 09:00 Rx Clopidogrel [Plavix] 75 mg PO QDAY #30 tablet 08/20/16 02/06/20 02/10/18 09:00 Rx Lopinavir/Ritonavir (Nf) [Kaletra 1 each PO BID #60 tablet 08/20/16 02/06/20 02/09/18 09:00 Rx 200-50 mg (Nf)] Metoprolol [Lopressor TAB] 12.5 mg PO BID #60 tablet 08/20/16 02/06/20 02/05/18 09:00 Rx Mirtazapine [Remeron] 45 mg PO QHS #30 tablet 08/20/16 02/06/20 02/05/18 09:00 Rx Pravastatin Sodium [Pravastatin] 10 mg PO QHS #30 tablet 08/20/16 02/06/20 02/05/18 09:00 Rx HYDROcodone/ACETAMINOPHEN 2 each PO Q6HR PRN #30 tablet 11/26/17 02/06/20 Unknown Rx [Hydrocodone-Acetamin 5-325 mg] Ondansetron [Zofran ODT TAB] 4 mg PO Q6H PRN 02/05/18 02/06/20 Unknown History Famotidine [Pepcid] 20 mg PO BID #30 tablet 03/08/20 Unknown Rx Folic Acid [Folvite] 1 mg PO QDAY #30 tablet 03/08/20 Unknown Rx Melatonin [Melatonin 5MG TAB] 5 mg PO QHS #30 tablet 03/08/20 Unknown Rx NIFEdipine XL [Procardia Xl] 30 mg PO Q12HR #60 tablet 03/08/20 Unknown Rx Nicotine [Habitrol] 21 mg TD QDAY #7 patch 03/08/20 Unknown Rx OLANzapine [ZyPREXA] 5 mg PO QHS #30 tablet 03/08/20 Unknown Rx [place]-3 Fatty Acids/Fish Oil [Fish 2,000 mg PO BID #30 capsule 03/08/20 Unknown Rx Oil] Thiamine [Vitamin B-1] 100 mg PO QDAY #30 tablet 03/08/20 Unknown Rx levETIRAcetam [Keppra TAB] 500 mg PO BID #60 tablet 09/29/20 Unknown Rx ED Physical Exam - General Limitations: No Limitations General appearance: alert, in no apparent distress - Head Head exam: Present: atraumatic, normocephalic - Eye Eye exam: Present: normal appearance, PERRL, EOMI - ENT ENT exam: Present: mucous membranes moist - Neck Neck exam: Present: normal inspection - Respiratory Respiratory exam: Present: normal lung sounds bilaterally. Absent: respiratory distress - Cardiovascular Cardiovascular Exam: Present: regular rate, normal rhythm - GI/Abdominal GI/Abdominal exam: Present: soft. Absent: distended, tenderness - Extremities Exam Extremities exam: Present: normal inspection - Neurological Exam Neurological exam: Present: alert, oriented X3, CN II-XII intact. Absent: motor sensory deficit - Psychiatric Psychiatric exam: Present: normal affect, normal mood - Skin Skin exam: Present: warm, dry, intact, normal color ED Course Vital Signs 09/29/20 09/29/20 13:31 13:46 Temperature 97.9 F Respiratory 14 Rate Blood Pressure 124/76 O2 Sat by Pulse 100 Oximetry - Reevaluation(s) Reevaluation #1: 09/29/20 14:33 Patient wants to leave AMA. Currently A&O x3, no neuro deficits. Labs have not resulted yet. CT head from yesterday is normal ED Medical Decision Making - Lab Data Result diagrams: 09/29/20 13:19 - Radiology Data Radiology results: report reviewed, image reviewed - Medical Decision Making 54-year-old male presents to ED for new onset seizure. First seizure on yesterday. Patient has history of alcohol abuse, however he states he has not had an alcoholic beverage in 2 weeks. This is likely not alcohol withdrawal. CT head from yesterday is no acute abnormalities. No seizure activity here in ED, no neuro deficits on exam. Patient is A&O x3. Patient has received IV Keppra. He would like to leave AMA at this time. He does not want to wait for lab results. Patient informed of risks of leaving. He understands. He has full decisional capacity. Vital signs are stable. Patient advised to return to the ED at any time. Prescription for Keppra given neurologist follow-up information. - Differential Diagnosis Epilepsy, alcohol withdrawal, electrolyte abnormality, intracranial abnorma Critical care attestation.: If time is entered above; I have spent that time in minutes in the direct care of this critically ill patient, excluding procedure time. ED Disposition Clinical Impression: Seizure Disposition: - LEFT AGAINST MED ADVICE Is pt being admited?: No Condition: Undetermined Instructions: Seizure, Adult, [id number] Prescriptions: levETIRAcetam [Keppra TAB] 500 mg PO BID #60 tablet Referrals: JAVIER ZARATE MD [Primary Care Provider] - 3-5 Days REJI JAUREGUI MD [Referring] - 3-5 Days Forms: AMA Form
[2020-09-29 13:46] VITALS: BP 124/76
[2020-09-29 14:39] LABS: BUN/Creatinine Ratio 12; Blood Urea Nitrogen 13 mg/dL (9-20); Calcium 8.5 mg/dL (8.4-10.2); Hemolysis Index 16
== END 2020-09-29 14:40 | disposition left against medical advice (07) ==
LOC: ED 11:33
DX: R56.9 Unspecified convulsions (principal); I10 Essential (primary) hypertension; J45.909 Unspecified asthma, uncomplicated; F17.200 Nicotine dependence, unspecified, uncomplicated; Z98.890 Other specified postprocedural states; Z79.899 Other long term (current) drug therapy; Z88.8 Allergy status to other drugs, medicaments and biological substances
CPT/HCPCS: 36415; 80048; 96374; 99284; J1953; 80320; G0480

== ENCOUNTER 2021-12-28 11:31 | Emergency (ER) | payer MEDICARE ==
[2021-12-28 11:39] VITALS: BP 148/88
== END 2021-12-28 12:42 | disposition left against medical advice (07) ==
LOC: ED 11:31
DX: M79.672 Pain in left foot (principal); Z53.21 Procedure and treatment not carried out due to patient leaving prior to being seen by health care provider

== ENCOUNTER 2022-01-22 06:50 | Inpatient (IN) | payer MEDICARE ==
[2022-01-22 09:17] LABS: Hematocrit 45.5 % (35.5-45.6); Hemoglobin 14.4 gm/dl (11.8-15.2); Mean Corpuscular HGB Conc 32 % (32-34); Mean Corpuscular Volume 78 fl (84-94); Red Blood Count 5.83 M/mm3 (3.65-5.03)
[2022-01-22 09:20] LABS: Red Cell Distribution Width 21.8 % (13.2-15.2)
[2022-01-22 09:40] LABS: Alanine Aminotransferase 110 units/L (7-56); Albumin 4.4 g/dL (3.9-5); BUN/Creatinine Ratio 8; Blood Urea Nitrogen 7 mg/dL (9-20); Calcium 10.1 mg/dL (8.4-10.2); Hemolysis Index 33
[2022-01-22 10:49] LABS: Basophils % (Manual) 0 % (0.0-1.8); Eosinophils % (Manual) 0 % (0.0-4.3); Myelocytes # (Manual) 0.1 K/mm3; Promyelocytes # (Manual) 0.1 K/mm3; Total Cells Counted 100
[2022-01-22 10:50] LABS: Anisocytosis 2+; Hypochromasia 1+; Large Platelets Few; Platelet Estimate Consistent w Auto
[2022-01-22 10:57] LABS: Platelet Count 52 K/mm3 (140-440)
[2022-01-22] MEDS ORDERED: LORazepam 2 MG/ML VIAL IV ONE (11:09)
--- NOTE | 2022-01-22 11:09 | Emergency Department Report ---
ED Alcohol HPI - General Chief Complaint: Alcohol Stated Complaint: DEHYDRATION/DETOX Time Seen by Provider: 01/22/22 10:17 Source: patient Mode of arrival: Ambulatory Limitations: No Limitations - History of Present Illness Initial Comments: 56-year-old -Faro[place] male with multiple medical problems who reports that he drinks every day and he has been having seizures anxiety and withdrawals. patient reports last alcohol intake was this morning. Patient reports that he drinks heavily every day. Denies any fever or chills. Admits to having some abdominal pain. MD Complaint: alcohol withdrawal, alcohol dependence Time Since Last Drink: 5 -: hour(s) Chronic Alcohol Use: Yes Previous Visits for Alcohol Intoxication?: Yes Recent Trauma: No Associated Symptoms: tremors, abdominal pain Treatments Prior to Arrival: none - Related Data Home Medications Medication Instructions Recorded Confirmed Last Taken Emtricitabin/Tenofovir [TRUVADA 1 tab PO QDAY 10/01/13 02/06/20 02/09/18 09:00 200-300 mg] Ondansetron [Zofran ODT TAB] 4 mg PO Q6H PRN 02/05/18 02/06/20 Unknown Previous Rx's Medication Instructions Recorded Last Taken Type Nitroglycerin [Nitrostat] 0.4 mg SL .Q5MIN PRN #90 tab 10/07/13 09/26/17 21:00 Rx Aspirin 325 mg PO QDAY #30 tablet 08/20/16 02/05/18 09:00 Rx Clopidogrel [Plavix] 75 mg PO QDAY #30 tablet 08/20/16 02/10/18 09:00 Rx Lopinavir/Ritonavir (Nf) [Kaletra 1 each PO BID #60 tablet 08/20/16 02/09/18 09:00 Rx 200-50 mg (Nf)] Metoprolol [Lopressor TAB] 12.5 mg PO BID #60 tablet 08/20/16 02/05/18 09:00 Rx Mirtazapine [Remeron] 45 mg PO QHS #30 tablet 08/20/16 02/05/18 09:00 Rx Pravastatin Sodium [Pravastatin] 10 mg PO QHS #30 tablet 08/20/16 02/05/18 09:00 Rx HYDROcodone/ACETAMINOPHEN 2 each PO Q6HR PRN #30 tablet 11/26/17 Unknown Rx [Hydrocodone-Acetamin 5-325 mg] Famotidine [Pepcid] 20 mg PO BID #30 tablet 03/08/20 Unknown Rx Folic Acid [Folvite] 1 mg PO QDAY #30 tablet 03/08/20 Unknown Rx Melatonin [Melatonin 5MG TAB] 5 mg PO QHS #30 tablet 03/08/20 Unknown Rx NIFEdipine XL [Procardia Xl] 30 mg PO Q12HR #60 tablet 03/08/20 Unknown Rx Nicotine [Habitrol] 21 mg TD QDAY #7 patch 03/08/20 Unknown Rx OLANzapine [ZyPREXA] 5 mg PO QHS #30 tablet 03/08/20 Unknown Rx [facility] [place]aird-3 Fatty Acids/Fish Oil [Fish 2,000 mg PO BID #30 capsule 03/08/20 Unknown Rx Oil] Thiamine [Vitamin B-1] 100 mg PO QDAY #30 tablet 03/08/20 Unknown Rx levETIRAcetam [Keppra TAB] 500 mg PO BID #60 tablet 09/29/20 Unknown Rx Allergies Allergy/AdvReac Type Severity Reaction Status Date / Time sulfamethoxazole AdvReac Swelling Verified 12/28/21 11:39 [From Bactrim] trimethoprim [From Bactrim] AdvReac Swelling Verified 12/28/21 11:39 ED Review of Systems ROS: Stated complaint: DEHYDRATION/DETOX Other details as noted in HPI Constitutional: denies: chills, fever Eyes: denies: eye pain, eye discharge, vision change ENT: denies: ear pain, throat pain Respiratory: denies: cough, shortness of breath, wheezing Cardiovascular: denies: chest pain, palpitations Endocrine: no symptoms reported Gastrointestinal: abdominal pain, nausea. denies: diarrhea Genitourinary: denies: urgency, dysuria Musculoskeletal: denies: back pain, joint swelling, arthralgia Skin: denies: rash, lesions Neurological: denies: headache, weakness, paresthesias Psychiatric: denies: anxiety, depression Hematological/Lymphatic: denies: easy bleeding, easy bruising ED Past Medical Hx - Past Medical History Previous Medical History?: Yes Hx Hypertension: Yes Hx Heart Attack/AMI: No Hx Congestive Heart Failure: No Hx Diabetes: No Hx Asthma: Yes Hx COPD: No Hx Tuberculosis: Yes (POSITIVE SKIN TEST,TOOK [place] , NEG CXR 2004) Hx HIV: Yes (Compliant with medication but unknown CD4 count) Additional medical history: 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 - Surgical History Hx Coronary Stent: Yes (X 2 2013) Additional Surgical History: tracheostomy- secondary to "throat infection/couldn't breathe" - Social History Smoking Status: Current Every Day Smoker Substance Use Type: Alcohol - Medications Home Medications: Home Medications Medication Instructions Recorded Confirmed Last Taken Type Emtricitabin/Tenofovir [TRUVADA 1 tab PO QDAY 10/01/13 02/06/20 02/09/18 09:00 History 200-300 mg] Nitroglycerin [Nitrostat] 0.4 mg SL .Q5MIN PRN #90 tab 10/07/13 02/06/20 09/26/17 21:00 Rx Aspirin 325 mg PO QDAY #30 tablet 08/20/16 02/06/20 02/05/18 09:00 Rx Clopidogrel [Plavix] 75 mg PO QDAY #30 tablet 08/20/16 02/06/20 02/10/18 09:00 Rx Lopinavir/Ritonavir (Nf) [Kaletra 1 each PO BID #60 tablet 08/20/16 02/06/20 02/09/18 09:00 Rx 200-50 mg (Nf)] Metoprolol [Lopressor TAB] 12.5 mg PO BID #60 tablet 08/20/16 02/06/20 02/05/18 09:00 Rx Mirtazapine [Remeron] 45 mg PO QHS #30 tablet 08/20/16 02/06/20 02/05/18 09:00 Rx Pravastatin Sodium [Pravastatin] 10 mg PO QHS #30 tablet 08/20/16 02/06/20 02/05/18 09:00 Rx HYDROcodone/ACETAMINOPHEN 2 each PO Q6HR PRN #30 tablet 11/26/17 02/06/20 Unknown Rx [Hydrocodone-Acetamin 5-325 mg] Ondansetron [Zofran ODT TAB] 4 mg PO Q6H PRN 02/05/18 02/06/20 Unknown History Famotidine [Pepcid] 20 mg PO BID #30 tablet 03/08/20 Unknown Rx Folic Acid [Folvite] 1 mg PO QDAY #30 tablet 03/08/20 Unknown Rx Melatonin [Melatonin 5MG TAB] 5 mg PO QHS #30 tablet 03/08/20 Unknown Rx NIFEdipine XL [Procardia Xl] 30 mg PO Q12HR #60 tablet 03/08/20 Unknown Rx Nicotine [Habitrol] 21 mg TD QDAY #7 patch 03/08/20 Unknown Rx OLANzapine [ZyPREXA] 5 mg PO QHS #30 tablet 03/08/20 Unknown Rx [facility] [place]aird-3 Fatty Acids/Fish Oil [Fish 2,000 mg PO BID #30 capsule 03/08/20 Unknown Rx Oil] Thiamine [Vitamin B-1] 100 mg PO QDAY #30 tablet 03/08/20 Unknown Rx levETIRAcetam [Keppra TAB] 500 mg PO BID #60 tablet 09/29/20 Unknown Rx ED Physical Exam - General Limitations: No Limitations General appearance: alert, in no apparent distress - Head Head exam: Present: atraumatic, normocephalic - Eye Eye exam: Present: normal appearance, PERRL, EOMI - ENT ENT exam: Present: normal exam, mucous membranes moist - Neck Neck exam: Present: normal inspection - Respiratory Respiratory exam: Present: normal lung sounds bilaterally. Absent: respiratory distress - Cardiovascular Cardiovascular Exam: Present: normal rhythm, tachycardia. Absent: systolic murmur, diastolic murmur, rubs, gallop - GI/Abdominal GI/Abdominal exam: Present: soft, normal bowel sounds - Rectal Rectal exam: Present: deferred - Extremities Exam Extremities exam: Present: normal inspection - Back Exam Back exam: Present: normal inspection - Neurological Exam Neurological exam: Present: alert, oriented X3, CN II-XII intact, other (Tremors/quivering) - Psychiatric Psychiatric exam: Present: normal affect, normal mood - Skin Skin exam: Present: warm, dry, intact, normal color. Absent: rash ED Course Vital Signs 01/22/22 01/22/22 08:45 10:36 Temperature 98.4 F 99.1 F Pulse Rate 91 H 89 Respiratory 16 18 Rate Blood Pressure 169/103 163/97 O2 Sat by Pulse 99 98 Oximetry ED Medical Decision Making - Lab Data Result diagrams: 01/22/22 09:02 01/22/22 09:02 Critical care attestation.: If time is entered above; I have spent that time in minutes in the direct care of this critically ill patient, excluding procedure time. ED Disposition Clinical Impression: Bronchitis Alcohol withdrawal Qualifiers: Complication of substance-induced condition: uncomplicated Qualified Code(s): F10.930 - Alcohol use, unspecified with withdrawal, uncomplicated Pancreatitis Qualifiers: Pancreatitis type: unspecified pancreatitis type Acute pancreatitis compli cation: no infection or necrosis Disposition: 09 ADMITTED INPATIENT Is pt being admited?: Yes Does the pt Need Aspirin: No Condition: Serious Instructions: Chronic Bronchitis (ED) Additional Instructions: In case of an emergency, please contact the following numbers: [place] Crisis and Access Line: Number: Crisis Text Line: (Text START) Number: 415896 Suicide Prevention Line: Number: Emergency Number: 911 SUBSTANCE ABUSE PROGRAMS: [facility]: Location: [place], [place] [facility] Address: [address] [place] [address] [facility] Recovery: Address: [address] [place] [address] [facility]: Address: [address] [place] [address] [facility] Community: Address: [address] [place] [address] [facility] Address: [address] [place] [id number]. Please contact above numbers to attempt placement into free based program. Medicaid Programs: [facility]: Address: [address] [place] [id number] [facility]: Address: [address] [place] [address] Phone: [phone] Referrals: PRIMARY CAREMD [Primary Care Provider] - 3-5 Days
[2022-01-22 11:32] LABS: Amphetamine Screen,Urine Negative; Benzodiazepines Screen,Urine Negative; Cannabinoid Screen,Urine Negative; Cocaine Screen,Urine Negative; Methadone Screen,Urine Negative; Opiate Screen,Urine Negative
[2022-01-22 12:06] LABS: Granular Casts,Urine 32 /LPF; Mucus,Urine FEW /HPF
--- NOTE | 2022-01-22 12:18 | Consultation ---
History of Present Illness - Reason for Consult Consult date: 01/22/22 Reason for consult: Alcohol Dependence - History of Present Psychiatric Illness The patient was seen today. He says he presented to the ER for detox. His fiance is at bedside. The patient gives me permission to speak to his . The patient appears anxious. He is having tremors. The patient appears to be withdrawals. He says he's hurting all over, shaking, N/V and having headaches. He says "I just about can't take it." He denies SI/HI or hallucinations. He also denies any past psych history or being on any psych meds. The patient's fiance says he is going to [place] after he's medically cleared. REVIEW OF SYSTEMS Constitutional: Negative for weight loss ENT: Negative for stridor Respiratory: Negative for cough or hemoptysis All other systems reviewed and are negative MENTAL STATUS EXAMINATION General Appearance and Behavior: Age appropriate, wearing appropriate clothes, cooperative, anxious Cooperation: cooperative Psychomotor Behavior: Psychomotor normal Mood: okay Affect and affective range: congruent with stated affect Thought Process: Goal directed Thought Content: None Speech: Normal volume, Regular rate and rhythm Suicidal Ideation: Denies Homicidal Ideation: Denies Hallucination: Denies Delusions: Denies Impulse Control: Limited Insight and Judgment: Limited Memory: Limited Attention: attentive Orientation: a/o x 3 Diagnoses: Alcohol Dependence with Withdrawal Treatment Plan No scripts given Medical: per primary Sitter: defer to primary Disposition: Do not recommend acute psychiatric inpatient treatment. The patient may discharge for rehab once medically clear. Will sign off. Thanks Case staffed with Dr. Rosales Medications and Allergies Allergies Allergy/AdvReac Type Severity Reaction Status Date / Time sulfamethoxazole AdvReac Swelling Verified 12/28/21 11:39 [From Bactrim] trimethoprim [From Bactrim] AdvReac Swelling Verified 12/28/21 11:39 Home Medications Medication Instructions Recorded Confirmed Last Taken Type Emtricitabin/Tenofovir [TRUVADA 1 tab PO QDAY 10/01/13 02/06/20 02/09/18 09:00 History 200-300 mg] Nitroglycerin [Nitrostat] 0.4 mg SL .Q5MIN PRN #90 tab 10/07/13 02/06/20 09/26/17 21:00 Rx Aspirin 325 mg PO QDAY #30 tablet 08/20/16 02/06/20 02/05/18 09:00 Rx Clopidogrel [Plavix] 75 mg PO QDAY #30 tablet 08/20/16 02/06/20 02/10/18 09:00 Rx Lopinavir/Ritonavir (Nf) [Kaletra 1 each PO BID #60 tablet 08/20/16 02/06/20 02/09/18 09:00 Rx 200-50 mg (Nf)] Metoprolol [Lopressor TAB] 12.5 mg PO BID #60 tablet 08/20/16 02/06/20 02/05/18 09:00 Rx Mirtazapine [Remeron] 45 mg PO QHS #30 tablet 08/20/16 02/06/20 02/05/18 09:00 Rx Pravastatin Sodium [Pravastatin] 10 mg PO QHS #30 tablet 08/20/16 02/06/2002/13 09:00 Rx HYDROcodone/ACETAMINOPHEN 2 each PO Q6HR PRN #30 tablet 11/26/17 02/06/20 Unknown Rx [Hydrocodone-Acetamin 5-325 mg] Ondansetron [Zofran ODT TAB] 4 mg PO Q6H PRN 02/05/18 02/06/20 Unknown History Famotidine [Pepcid] 20 mg PO BID #30 tablet 03/08/20 Unknown Rx Folic Acid [Folvite] 1 mg PO QDAY #30 tablet 03/08/20 Unknown Rx Melatonin [Melatonin 5MG TAB] 5 mg PO QHS #30 tablet 03/08/20 Unknown Rx NIFEdipine XL [Procardia Xl] 30 mg PO Q12HR #60 tablet 03/08/20 Unknown Rx Nicotine [Habitrol] 21 mg TD QDAY #7 patch 03/08/20 Unknown Rx OLANzapine [ZyPREXA] 5 mg PO QHS #30 tablet 03/08/20 Unknown Rx Crump-3 Fatty Acids/Fish Oil [Fish 2,000 mg PO BID #30 capsule 03/08/20 Unknown Rx Oil] Thiamine [Vitamin B-1] 100 mg PO QDAY #30 tablet 03/08/20 Unknown Rx levETIRAcetam [Keppra TAB] 500 mg PO BID #60 tablet 09/29/20 Unknown Rx Active Meds: Active Medications Lorazepam (Lorazepam 2 Mg/Ml Vial) 2 mg IV Q4H PRN PRN Reason: CIWA-Ar 8-15 Mental Status Exam - Vital signs Last Vital Signs Temp 99.1 F 01/22/22 10:36 Pulse 89 01/22/22 10:36 Resp 18 01/22/22 10:36 BP 163/97 01/22/22 10:36 Pulse Ox 98 01/22/22 10:36 Results Result Diagrams: 01/22/22 09:02 01/22/22 09:02 Abnormal lab results 01/22/22 01/22/22 01/22/22 Range/Units 09:02 09:02 09:02 WBC 3.7 L (4.5-11.0) K/mm3 RBC 5.83 H (3.65-5.03) M/mm3 MCV 78 L (84-94) fl MCH 25 L (28-32) pg RDW 21.8 H (13.2-15.2) % Plt Count 52 L (140-440) K/mm3 Seg Neuts % (Manual) 76.0 H (40.0-70.0) % Lymphocytes % (Manual) 13.0 L (13.4-35.0) % Nucleated RBC % 1.0 H (0.0-0.9) % Lymphocytes # (Manual) 0.5 L (1.2-5.4) K/mm3 Sodium 133 L (137-145) mmol/L Chloride 94.3 L (98-107) mmol/L Carbon Dioxide 18 L (22-30) mmol/L BUN 7 L (9-20) mg/dL AST 162 H (5-40) units/L ALT 110 H (7-56) units/L Alkaline Phosphatase 350 H (35-129) units/L Total Protein 9.1 H (6.3-8.2) g/dL Lipase (13-60) units/L Salicylates < 0.3 L (2.8-20.0) mg/dL Acetaminophen (10.0-30.0) ug/mL 01/22/22 01/22/22 Range/Units 09:02 11:00 WBC (4.5-11.0) K/mm3 RBC (3.65-5.03) M/mm3 MCV (84-94) fl MCH (28-32) pg RDW (13.2-15.2) % Plt Count (140-440) K/mm3 Seg Neuts % (Manual) (40.0-70.0) % Lymphocytes % (Manual) (13.4-35.0) % Nucleated RBC % (0.0-0.9) % Lymphocytes # (Manual) (1.2-5.4) K/mm3 Sodium (137-145) mmol/L Chloride (98-107) mmol/L Carbon Dioxide (22-30) mmol/L BUN (9-20) mg/dL AST (5-40) units/L ALT (7-56) units/L Alkaline Phosphatase (35-129) units/L Total Protein (6.3-8.2) g/dL Lipase 112 H (13-60) units/L Salicylates (2.8-20.0) mg/dL Acetaminophen 5.0 L (10.0-30.0) ug/mL All other labs normal.
[2022-01-22 12:23] LABS: Color,Urine AMBER (Yellow)
[2022-01-22 12:36] LABS: Bilirubin,Urine Negative (Negative); Blood,Urine Moderate (Negative); PH,Urine 6.5 (5.0-7.0); Protein,Urine >2000 mg dL mg/dL (Negative)
[2022-01-22 12:40] LABS: Urobilinogen,Urine SMALL mg/dL (<2.0)
--- NOTE | 2022-01-22 15:27 | History and Physical Report ---
History of Present Illness Date of examination: 01/22/22 Date of admission: 01/22/2022 Chief complaint: Seen for anxiety and tremulousness for 1 day History of present illness: 56-year-old -Hungarian male with history of HIV, coronary artery disease, hypertension, hyperlipidemia and seizure disorder comes in for severe anxiety and withdrawal symptoms from alcohol. Patient apparently drinks about 15 beers every day. Patient has been 15 years last night also. Patient is tremulous and very anxious. No seizures. No fever or chills. Generalized abdominal d iscomfort present. No nausea no vomiting no diarrhea. Pain is about 4 on a scale of 1-10. No exacerbating or relieving factors. - Past Medical History --Previous Medical History?: Yes --Hypertension: Yes --Diabetes: No --Asthma: Yes --COPD: No --Tuberculosis: Yes (POSITIVE SKIN TEST,TOOK [place] , NEG CXR 2004) --HIV: Yes (Compliant with medication but unknown CD4 count) --Additional medical history: 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 - Surgical History --Coronary Stent: Yes (X 2 2013) --Additional Surgical History: tracheostomy- secondary to "throat infection/couldn't breathe" - Social History --Smoking Status: Current Every Day Smoker --Substance Use Type: Alcohol Review of Systems ROS: Stated complaint: DEHYDRATION/DETOX Other details as noted in HPI Constitutional: denies: chills, fever Eyes: denies: eye pain, eye discharge, vision change ENT: denies: ear pain, throat pain Respiratory: denies: cough, shortness of breath, wheezing Cardiovascular: denies: chest pain, palpitations Endocrine: no symptoms reported Gastrointestinal: abdominal pain, nausea. denies: diarrhea Genitourinary: denies: urgency, dysuria Musculoskeletal: denies: back pain, joint swelling, arthralgia Skin: denies: rash, lesions Neurological: denies: headache, weakness, paresthesias Psychiatric: denies: anxiety, depression Hematological/Lymphatic: denies: easy bleeding, easy bruising Medications and Allergies Allergies Allergy/AdvReac Type Severity Reaction Status Date / Time sulfamethoxazole AdvReac Swelling Verified 12/28/21 11:39 [From Bactrim] trimethoprim [From Bactrim] AdvReac Swelling Verified 12/28/21 11:39 Home Medications Medication Instructions Recorded Confirmed Last Taken Type Emtricitabin/Tenofovir [TRUVADA 1 tab PO QDAY 10/01/13 02/06/20 02/09/18 09:00 History 200-300 mg] Nitroglycerin [Nitrostat] 0.4 mg SL .Q5MIN PRN #90 tab 10/07/13 02/06/20 09/26/17 21:00 Rx Aspirin 325 mg PO QDAY #30 tablet 08/20/16 02/06/20 02/05/18 09:00 Rx Clopidogrel [Plavix] 75 mg PO QDAY #30 tablet 08/20/16 02/06/20 02/10/18 09:00 Rx Lopinavir/Ritonavir (Nf) [Kaletra 1 each PO BID #60 tablet 08/20/16 02/06/20 02/09/18 09:00 Rx 200-50 mg (Nf)] Metoprolol [Lopressor TAB] 12.5 mg PO BID #60 tablet 08/20/16 02/06/20 02/05/18 09:00 Rx Mirtazapine [Remeron] 45 mg PO QHS #30 tablet 08/20/16 02/06/20 02/05/18 09:00 Rx Pravastatin Sodium [Pravastatin] 10 mg PO QHS #30 tablet 08/20/16 02/06/20 02/05/18 09:00 Rx HYDROcodone/ACETAMINOPHEN 2 each PO Q6HR PRN #30 tablet 11/26/17 02/06/20 Unknown Rx [Hydrocodone-Acetamin 5-325 mg] Ondansetron [Zofran ODT TAB] 4 mg PO Q6H PRN 02/05/18 02/06/20 Unknown History Famotidine [Pepcid] 20 mg PO BID #30 tablet 03/08/20 Unknown Rx Folic Acid [Folvite] 1 mg PO QDAY #30 tablet 03/08/20 Unknown Rx Melatonin [Melatonin 5MG TAB] 5 mg PO QHS #30 tablet 03/08/20 Unknown Rx NIFEdipine XL [Procardia Xl] 30 mg PO Q12HR #60 tablet 03/08/20 Unknown Rx Nicotine [Habitrol] 21 mg TD QDAY #7 patch 03/08/20 Unknown Rx OLANzapine [ZyPREXA] 5 mg PO QHS #30 tablet 03/08/20 Unknown Rx [place]-3 Fatty Acids/Fish Oil [Fish 2,000 mg PO BID #30 capsule 03/08/20 Unknown Rx Oil] Thiamine [Vitamin B-1] 100 mg PO QDAY #30 tablet 03/08/20 Unknown Rx levETIRAcetam [Keppra TAB] 500 mg PO BID #60 tablet 09/29/20 Unknown Rx Active Meds: Active Medications Lorazepam (Lorazepam 2 Mg/Ml Vial) 2 mg IV Q4H PRN PRN Reason: CIWA-Ar 8-15 Exam - Constitutional Vitals: Temp Pulse Resp BP Pulse Ox 99.1 F 89 18 163/97 98 01/22/22 10:36 01/22/22 10:36 01/22/22 10:36 01/22/22 10:36 01/22/22 10:36 General appearance: Present: mild distress, well-nourished - EENT Eyes: Present: PERRL ENT: hearing intact, clear oral mucosa - Neck Neck: Present: supple, normal ROM - Respiratory Respiratory effort: normal Respiratory: bilateral: CTA - Cardiovascular Heart rate: 78 Rhythm: regular Heart Sounds: Present: S1 & S2. Absent: rub, click - Extremities Extremities: pulses symmetrical, No edema Peripheral Pulses: within normal limits - Abdominal General gastrointestinal: Present: soft, non-tender, non-distended, normal bowel sounds Male genitourinary: Present: normal - Integumentary Integumentary: Present: clear, warm, dry - Musculoskeletal Musculoskeletal: gait normal, strength equal bilaterally - Psychiatric Psychiatric: appropriate mood/affect, intact judgment & insight, other (Alert and oriented. Giving good history) - Neurologic Neurologic: CNII-XII intact, moves all extremities - Allied Health Allied health notes reviewed: nursing, case management Results - Labs CBC & Chem 7: 01/23/22 05:47 01/22/22 09:02 Labs: Laboratory Last Values WBC 3.7 K/mm3 (4.5-11.0) L 01/22/22 09:02 RBC 5.83 M/mm3 (3.65-5.03) H 01/22/22 09:02 Hgb 14.4 gm/dl (11.8-15.2) 01/22/22 09:02 Hct 45.5 % (35.5-45.6) 01/22/22 09:02 MCV 78 fl (84-94) L 01/22/22 09:02 MCH 25 pg (28-32) L 01/22/22 09:02 MCHC 32 % (32-34) 01/22/22 09:02 RDW 21.8 % (13.2-15.2) H 01/22/22 09:02 Plt Count 52 K/mm3 (140-440) L 01/22/22 09:02 Add Manual Diff Complete 01/22/22 09:02 Total Counted 100 01/22/22 09:02 Seg Neuts % (Manual) 76.0 % (40.0-70.0) H 01/22/22 09:02 Band Neutrophils % 0 % 01/22/22 09:02 Lymphocytes % (Manual) 13.0 % (13.4-35.0) L 01/22/22 09:02 Reactive Lymphs % (Man) 1.0 % 01/22/22 09:02 Monocytes % (Manual) 5.0 % (0.0-7.3) 01/22/22 09:02 Eosinophils % (Manual) 0 % (0.0-4.3) 01/22/22 09:02 Basophils % (Manual) 0 % (0.0-1.8) 01/22/22 09:02 Metamyelocytes % 1.0 % 01/22/22 09:02 Myelocytes % 2.0 % 01/22/22 09:02 Promyelocytes % 2.0 % 01/22/22 09:02 Blast Cells % 0 % 01/22/22 09:02 Nucleated RBC % 1.0 % (0.0-0.9) H 01/22/22 09:02 Seg Neutrophils # Man 2.8 K/mm3 (1.8-7.7) 01/22/22 09:02 Band Neutrophils # 0.0 K/mm3 01/22/22 09:02 Lymphocytes # (Manual) 0.5 K/mm3 (1.2-5.4) L 01/22/22 09:02 Abs React Lymphs (Man) 0.0 K/mm3 01/22/22 09:02 Monocytes # (Manual) 0.2 K/mm3 (0.0-0.8) 01/22/22 09:02 Eosinophils # (Manual) 0.0 K/mm3 (0.0-0.4) 01/22/22 09:02 Basophils # (Manual) 0.0 K/mm3 (0.0-0.1) 01/22/22 09:02 Metamyelocytes # 0.0 K/mm3 01/22/22 09:02 Myelocytes # 0.1 K/mm3 01/22/22 09:02 Promyelocytes # 0.1 K/mm3 01/22/22 09:02 Blast Cells # 0.0 K/mm3 01/22/22 09:02 WBC Morphology Not Reportable 01/22/22 09:02 Hypersegmented Neuts Not Reportable 01/22/22 09:02 Hyposegmented Neuts Not Reportable 01/22/22 09:02 Hypogranular Neuts Not Reportable 01/22/22 09:02 Smudge Cells Not Reportable 01/22/22 09:02 Toxic Granulation Not Reportable 01/22/22 09:02 Toxic Vacuolation Not Reportable 01/22/22 09:02 Dohle Bodies Not Reportable 01/22/22 09:02 Pelger-Huet Anomaly Not Reportable 01/22/22 09:02 [place] Rods Not Reportable 01/22/22 09:02 Platelet Estimate Consistent w auto 01/22/22 09:02 Clumped Platelets Not Reportable 01/22/22 09:02 Plt Clumps, EDTA Not Reportable 01/22/22 09:02 Large Platelets Few 01/22/22 09:02 Giant Platelets Not Reportable 01/22/22 09:02 Platelet Satelliting Not Reportable 01/22/22 09:02 Plt Morphology Comment Not Reportable 01/22/22 09:02 RBC Morphology Not Reportable 01/22/22 09:02 Dimorphic RBCs Not Reportable 01/22/22 09:02 Polychromasia Not Reportable 01/22/22 09:02 Hypochromasia 1+ 01/22/22 09:02 Poikilocytosis Not Reportable 01/22/22 09:02 Anisocytosis 2+ 01/22/22 09:02 Microcytosis Not Reportable 01/22/22 09:02 Macrocytosis Not Reportable 01/22/22 09:02 Spherocytes Not Reportable 01/22/22 09:02 Pappenheimer Bodies Not Reportable 01/22/22 09:02 Sickle Cells Not Reportable 01/22/22 09:02 Target Cells Not Reportable 01/22/22 09:02 Tear Drop Cells Not Reportable 01/22/22 09:02 Ovalocytes Not Reportable 01/22/22 09:02 Helmet Cells Not Reportable 01/22/22 09:02 [place] Bodies Not Reportable 01/22/22 09:02 [place] Rings Not Reportable 01/22/22 09:02 [place] Cells Not Reportable 01/22/22 09:02 Bite Cells Not Reportable 01/22/22 09:02 Crenated Cell Not Reportable 01/22/22 09:02 Elliptocytes Not Reportable 01/22/22 09:02 Acanthocytes (Spur) Not Reportable 01/22/22 09:02 Rouleaux Not Reportable 01/22/22 09:02 Hemoglobin C Crystals Not Reportable 01/22/22 09:02 Schistocytes Not Reportable 01/22/22 09:02 Malaria parasites Not Reportable 01/22/22 09:02 [place] Bodies Not Reportable 01/22/22 09:02 Hem Pathologist Commnt No 01/22/22 09:02 Sodium 133 mmol/L (137-145) L 01/22/22 09:02 Potassium 4.6 mmol/L (3.6-5.0) 01/22/22 09:02 Chloride 94.3 mmol/L (98-107) L 01/22/22 09:02 Carbon Dioxide 18 mmol/L (22-30) L 01/22/22 09:02 Anion Gap 25 mmol/L 01/22/22 09:02 BUN 7 mg/dL (9-20) L 01/22/22 09:02 Creatinine 0.9 mg/dL (0.8-1.3) 01/22/22 09:02 Estimated GFR > 60 ml/min 01/22/22 09:02 BUN/Creatinine Ratio 8 % 01/22/22 09:02 Glucose 81 mg/dL (75-100) 01/22/22 09:02 Calcium 10.1 mg/dL (8.4-10.2) 01/22/22 09:02 Total Bilirubin 1.20 mg/dL (0.1-1.2) 01/22/22 09:02 AST 162 units/L (5-40) H 01/22/22 09:02 ALT 110 units/L (7-56) H 01/22/22 09:02 Alkaline Phosphatase 350 units/L (35-129) H 01/22/22 09:02 Total Protein 9.1 g/dL (6.3-8.2) H 01/22/22 09:02 Albumin 4.4 g/dL (3.9-5) 01/22/22 09:02 Albumin/Globulin Ratio 0.9 % 01/22/22 09:02 Lipase 112 units/L (13-60) H 01/22/22 11:00 Urine Color Su (Yellow) 01/22/22 09:00 Urine Turbidity Slightly cloudy (Clear) 01/22/22 09:00 Urine pH 6.5 (5.0-7.0) 01/22/22 09:00 Ur Specific [place] 1.030 (1.003-1.030) 01/22/22 09:00 Urine Protein >2000 mg dl mg/dL (Negative) 01/22/22 09:00 Urine Glucose (UA) Negative mg/dL (Negative) 01/22/22 09:00 Urine Ketones Trace mg/dL (Negative) 01/22/22 09:00 Urine Blood Moderate (Negative) A 01/22/22 09:00 Urine Nitrite Negative (Negative) 01/22/22 09:00 Ur Reducing Substances Not Reportable 01/22/22 09:00 Urine Bilirubin Negative (Negative) 01/22/22 09:00 Urine Ictotest Not Reportable 01/22/22 09:00 Urine Urobilinogen Small mg/dL (<2.0) 01/22/22 09:00 Ur Leukocyte Esterase Negative (Negative) 01/22/22 09:00 Urine WBC (Auto) 1.0 /HPF (0.0-6.0) 01/22/22 09:00 Urine RBC (Auto) 32.0 /HPF (0.0-6.0) 01/22/22 09:00 U Epithel Cells (Auto) 2.0 /HPF (0-13.0) 01/22/22 09:00 Granular Casts 32 /LPF 01/22/22 09:00 Urine Mucus Few /HPF 01/22/22 09:00 Salicylates < 0.3 mg/dL (2.8-20.0) L 01/22/22 09:02 Urine Opiates Screen Negative 01/22/22 09:00 Urine Methadone Screen Negative 01/22/22 09:00 Acetaminophen 5.0 ug/mL (10.0-30.0) L 01/22/22 09:02 Ur Barbiturates Screen Negative 01/22/22 09:00 Ur Phencyclidine Scrn Negative 01/22/22 09:00 Ur Amphetamines Screen Negative 01/22/22 09:00 U Benzodiazepines Scrn Negative 01/22/22 09:00 Urine Cocaine Screen Negative 01/22/22 09:00 U Marijuana (THC) Screen Negative 01/22/22 09:00 Drugs of Abuse Note Disclamer 01/22/22 09:00 Plasma/Serum Alcohol 0.02 % (0-0.07) 01/22/22 09:02 Short CBC 01/22/22 01/23/22 Range/Units 09:02 05:47 WBC 3.7 L 3.9 L (4.5-11.0) K/mm3 Hgb 14.4 13.5 (11.8-15.2) gm/dl Hct 45.5 43.0 (35.5-45.6) % Plt Count 52 L (140-440) K/mm3 BMP 01/22/22 09:02 Sodium 133 L Potassium 4.6 Chloride 94.3 L Carbon Dioxide 18 L BUN 7 L Creatinine 0.9 Glucose 81 Calcium 10.1 Liver Function 01/22/22 Range/Units 09:02 Total Bilirubin 1.20 (0.1-1.2) mg/dL AST 162 H (5-40) units/L ALT 110 H (7-56) units/L Alkaline Phosphatase 350 H (35-129) units/L Albumin 4.4 (3.9-5) g/dL Urine 01/22/22 Range/Units 09:00 Urine Color Su (Yellow) Urine pH 6.5 (5.0-7.0) Ur Specific [place] 1.030 (1.003-1.030) Urine Protein >2000 mg dl (Negative) mg/dL Urine Glucose (UA) Negative (Negative) mg/dL Assessment and Plan Advance Directives: Yes (Full code) VTE prophylaxis?: Chemical Plan of care discussed with patient/family: Yes - Patient Problems (1) Alcohol withdrawal Current Visit: Yes Status: Acute Qualifiers: Complication of substance-induced condition: uncomplicated Qualified Code(s): F10.930 - Alcohol use, unspecified with withdrawal, uncomplicated Plan to address problem: Patient going into delirium tremens CIWA protocol with Ativan IV fluids Banana bag Patient counseled about EtOH dependence and encephalitis (2) Alcoholic hepatitis Current Visit: No Status: Acute Qualifiers: Ascites presence: without ascites Qualified Code(s): K70.10 - Alcoholic hepatitis without ascites Plan to address problem: Transaminitis present with AST of 162 ALT 110 alk phos of 350. Hepatitis profile requested (3) Hypertension Current Visit: Yes Status: Chronic Qualifiers: Hypertension type: primary hypertension Qualified Code(s): I10 - Essential (primary) hypertension Plan to address problem: Continue antihypertensives and adjust medications as necessary (4) HIV (human immunodeficiency virus infection) Current Visit: Yes Status: Chronic Qualifiers: HIV symptom status: asymptomatic, with no history of HIV-related illness Qualified Code(s): Z21 - Asymptomatic human immunodeficiency virus [HIV] infection status Plan to address problem: Continue antiretrovirals (5) Hyperlipidemia Current Visit: Yes Status: Chronic Qualifiers: Hyperlipidemia type: mixed hyperlipidemia Qualified Code(s): E78.2 - Mixed hyperlipidemia Plan to address problem: Will hold statins for now because of increased transaminases (6) Seizure disorder Current Visit: Yes Status: Chronic Plan to address problem: Continue antiepileptic drugs (7) DVT prophylaxis Current Visit: Yes Status: Acute (8) DVT prophylaxis Current Visit: Yes Status: Acute Plan to address problem: On heparin and GI prophylaxis (9) Advance care planning Current Visit: Yes Status: Acute Plan to address problem: Disease education conducted, care plan discussed, diagnosis and prognosis discussed. Patient is full code. Patient acknowledged understanding of the care plan. +30 minutes.
[2022-01-22] MEDS ORDERED: ACETAMINOPHEN 325 MG TAB PO PRN (16:00)
[2022-01-22] MEDS ORDERED: D5W/0.9% NACL 1,000 ML IV SCH (16:00)
[2022-01-22] MEDS ORDERED: ONDANSETRON 4 MG/2 ML INJ IV PRN (16:00)
[2022-01-22] MEDS ORDERED: MORPHINE 2 MG/1 ML INJ IV PRN (16:00)
[2022-01-22] MEDS: LORazepam 2 MG/ML VIAL IV PRN (19:59)
[2022-01-22] MEDS ORDERED: hydrALAZINE 20 MG/1 ML INJ IV PRN (21:03)
[2022-01-22] MEDS ORDERED: THIAMINE 100 MG, FOLIC ACID 1 MG, MULTIPLE VITAMIN INJ, ADULT 10 ML in SODIUM CHLORIDE ... IV ONE (21:08)
[2022-01-22] MEDS: HEPARIN 5,000 UNIT/1 ML VIAL SUB-Q SCH (22:16)
[2022-01-23] MEDS: LORazepam 2 MG/ML VIAL IV PRN ×3 (00:12→18:54)
[2022-01-23 06:11] LABS: Basophils % (Auto) 0.9 % (0.0-1.8); Hemoglobin 13.5 gm/dl (11.8-15.2); Lymphocytes # (Auto) 1.4 K/mm3 (1.2-5.4); Mean Corpuscular HGB Conc 32 % (32-34); Mean Corpuscular Volume 78 fl (84-94); Monocytes # (Auto) 0.4 K/mm3 (0.0-0.8); Monocytes % (Auto) 9.4 % (0.0-7.3); Red Blood Count 5.53 M/mm3 (3.65-5.03)
[2022-01-23 06:31] LABS: Alanine Aminotransferase 80 units/L (7-56); BUN/Creatinine Ratio 18; Blood Urea Nitrogen 16 mg/dL (9-20); Calcium 10.2 mg/dL (8.4-10.2); Hemolysis Index 16
[2022-01-23 07:13] LABS: Hepatitis B Surface Antigen Non-Reactive (Negative); Hepatitis C Virus Antibody Non-Reactive (NonReactive)
[2022-01-23 08:00] LABS: Platelet Count 49 K/mm3 (140-440)
[2022-01-23] MEDS: HEPARIN 5,000 UNIT/1 ML VIAL SUB-Q SCH ×2 (11:04→22:58)
--- NOTE | 2022-01-23 12:36 | Progress Note ---
Assessment and Plan Assessment and plan: #Alcohol withdrawal #Alcohol dependence Patient going into delirium tremens CIMT protocol with Ativan IV fluids Banana bag librium added patient will follow up with Crisis Center tomorrow Patient counseled about EtOH dependence and encephalitis. +10 minutes #Alcoholic hepatitis-improving Transaminitis present with AST of 162 ALT 110 alk phos of 350. Hepatitis profile requested no steroids needed, will continue to improve with alcohol cessation #Hypertension Continue antihypertensives and adjust medications as necessary #HIV (human immunodeficiency virus infection) patient not taking ARV due to excessive drinking follow up with ID outpatient #Hyperlipidemia statin held for now because of increased transaminases #Seizure disorder Continue antiepileptic drugs #Advanced care planning Disease education conducted, care plan discussed, diagnosis and prognosis discussed. Patient is full code. Patient acknowledged understanding of the care plan. +30 minutes. History Interval history: No acute events overnight. Patient reports having extreme tremors whenever he stops drinking for an extended period of time. His last drink was the morning that he presented to the hospital. He is eager to quit drinking to improve his home life. We discussed outside resources. He plans to go to the crisis center after discharge. Hospitalist Physical - Physical exam Narrative exam: GENERAL: Well-developed well-nourished. Sitting on the side of the bed in no acute distress. HEENT: Normocephalic. Atraumatic. NECK: Supple. CHEST/LUNGS: CTAB on room air HEART/CARDIOVASCULAR: RRR. No murmur, rubs or gallops appreciated. ABDOMEN: +BS. NT/ND. NEURO: No focal motor deficit. Follows all commands and is ambulatory. Slight tremor on hand extension. MUSCULOSKELETAL: No joint effusion EXTREMITIES: No cyanosis, clubbing or edema. PSYCH: Cooperative. - Constitutional Vitals: Temp Pulse Resp BP Pulse Ox 98.0 F 124 H 18 148/78 98 01/23/22 04:05 01/23/22 04:05 01/23/22 04:05 01/23/22 04:05 01/23/22 04:05 General appearance: Present: mild distress, well-nourished Results - Labs CBC & Chem 7: 01/23/22 05:47 01/23/22 05:47 Labs: Laboratory Last Values WBC 3.9 K/mm3 (4.5-11.0) L 01/23/22 05:47 RBC 5.53 M/mm3 (3.65-5.03) H 01/23/22 05:47 Hgb 13.5 gm/dl (11.8-15.2) 01/23/22 05:47 Hct 43.0 % (35.5-45.6) 01/23/22 05:47 MCV 78 fl (84-94) L 01/23/22 05:47 MCH 25 pg (28-32) L 01/23/22 05:47 MCHC 32 % (32-34) 01/23/22 05:47 RDW 22.0 % (13.2-15.2) H 01/23/22 05:47 Plt Count 49 K/mm3 (140-440) L 01/23/22 05:47 Lymph % (Auto) 35.0 % (13.4-35.0) 01/23/22 05:47 [place] % (Auto) 9.4 % (0.0-7.3) H 01/23/22 05:47 Eos % (Auto) 1.0 % (0.0-4.3) 01/23/22 05:47 Baso % (Auto) 0.9 % (0.0-1.8) 01/23/22 05:47 Lymph # (Auto) 1.4 K/mm3 (1.2-5.4) 01/23/22 05:47 [place] # (Auto) 0.4 K/mm3 (0.0-0.8) 01/23/22 05:47 Eos # (Auto) 0.0 K/mm3 (0.0-0.4) 01/23/22 05:47 Baso # (Auto) 0.0 K/mm3 (0.0-0.1) 01/23/22 05:47 Add Manual Diff Complete 01/22/22 09:02 Total Counted 100 01/22/22 09:02 Seg Neutrophils % 53.7 % (40.0-70.0) 01/23/22 05:47 Seg Neuts % (Manual) 76.0 % (40.0-70.0) H 01/22/22 09:02 Band Neutrophils % 0 % 01/22/22 09:02 Lymphocytes % (Manual) 13.0 % (13.4-35.0) L 01/22/22 09:02 Reactive Lymphs % (Man) 1.0 % 01/22/22 09:02 Monocytes % (Manual) 5.0 % (0.0-7.3) 01/22/22 09:02 Eosinophils % (Manual) 0 % (0.0-4.3) 01/22/22 09:02 Basophils % (Manual) 0 % (0.0-1.8) 01/22/22 09:02 Metamyelocytes % 1.0 % 01/22/22 09:02 Myelocytes % 2.0 % 01/22/22 09:02 Promyelocytes % 2.0 % 01/22/22 09:02 Blast Cells % 0 % 01/22/22 09:02 Nucleated RBC % 1.0 % (0.0-0.9) H 01/22/22 09:02 Seg Neutrophils # 2.1 K/mm3 (1.8-7.7) 01/23/22 05:47 Seg Neutrophils # Man 2.8 K/mm3 (1.8-7.7) 01/22/22 09:02 Band Neutrophils # 0.0 K/mm3 01/22/22 09:02 Lymphocytes # (Manual) 0.5 K/mm3 (1.2-5.4) L 01/22/22 09:02 Abs React Lymphs (Man) 0.0 K/mm3 01/22/22 09:02 Monocytes # (Manual) 0.2 K/mm3 (0.0-0.8) 01/22/22 09:02 Eosinophils # (Manual) 0.0 K/mm3 (0.0-0.4) 01/22/22 09:02 Basophils # (Manual) 0.0 K/mm3 (0.0-0.1) 01/22/22 09:02 Metamyelocytes # 0.0 K/mm3 01/22/22 09:02 Myelocytes # 0.1 K/mm3 01/22/22 09:02 Promyelocytes # 0.1 K/mm3 01/22/22 09:02 Blast Cells # 0.0 K/mm3 01/22/22 09:02 WBC Morphology Not Reportable 01/22/22 09:02 Hypersegmented Neuts Not Reportable 01/22/22 09:02 Hyposegmented Neuts Not Reportable 01/22/22 09:02 Hypogranular Neuts Not Reportable 01/22/22 09:02 Smudge Cells Not Reportable 01/22/22 09:02 Toxic Granulation Not Reportable 01/22/22 09:02 Toxic Vacuolation Not Reportable 01/22/22 09:02 Dohle Bodies Not Reportable 01/22/22 09:02 Pelger-Huet Anomaly Not Reportable 01/22/22 09:02 Esperanza Rods Not Reportable 01/22/22 09:02 Platelet Estimate Consistent w auto 01/22/22 09:02 Clumped Platelets Not Reportable 01/22/22 09:02 Plt Clumps, EDTA Not Reportable 01/22/22 09:02 Large Platelets Few 01/22/22 09:02 Giant Platelets Not Reportable 01/22/22 09:02 Platelet Satelliting Not Reportable 01/22/22 09:02 Plt Morphology Comment Not Reportable 01/22/22 09:02 RBC Morphology Not Reportable 01/22/22 09:02 Dimorphic RBCs Not Reportable 01/22/22 09:02 Polychromasia Not Reportable 01/22/22 09:02 Hypochromasia 1+ 01/22/22 09:02 Poikilocytosis Not Reportable 01/22/22 09:02 Anisocytosis 2+ 01/22/22 09:02 Microcytosis Not Reportable 01/22/22 09:02 Macrocytosis Not Reportable 01/22/22 09:02 Spherocytes Not Reportable 01/22/22 09:02 Pappenheimer Bodies Not Reportable 01/22/22 09:02 Sickle Cells Not Reportable 01/22/22 09:02 Target Cells Not Reportable 01/22/22 09:02 Tear Drop Cells Not Reportable 01/22/22 09:02 Ovalocytes Not Reportable 01/22/22 09:02 Helmet Cells Not Reportable 01/22/22 09:02 [place] Bodies Not Reportable 01/22/22 09:02 [place] Rings Not Reportable 01/22/22 09:02 Rolfe Cells Not Reportable 01/22/22 09:02 Bite Cells Not Reportable 01/22/22 09:02 Crenated Cell Not Reportable 01/22/22 09:02 Elliptocytes Not Reportable 01/22/22 09:02 Acanthocytes (Spur) Not Reportable 01/22/22 09:02 Rouleaux Not Reportable 01/22/22 09:02 Hemoglobin C Crystals Not Reportable 01/22/22 09:02 Schistocytes Not Reportable 01/22/22 09:02 Malaria parasites Not Reportable 01/22/22 09:02 Bobby Bodies Not Reportable 01/22/22 09:02 Hem Pathologist Commnt No 01/22/22 09:02 Sodium 135 mmol/L (137-145) L 01/23/22 05:47 Potassium 3.8 mmol/L (3.6-5.0) 01/23/22 05:47 Chloride 100.4 mmol/L (98-107) 01/23/22 05:47 Carbon Dioxide 21 mmol/L (22-30) L 01/23/22 05:47 Anion Gap 17 mmol/L 01/23/22 05:47 BUN 16 mg/dL (9-20) 01/23/22 05:47 Creatinine 0.9 mg/dL (0.8-1.3) 01/23/22 05:47 Estimated GFR > 60 ml/min 01/23/22 05:47 BUN/Creatinine Ratio 18 % 01/23/22 05:47 Glucose 102 mg/dL (75-100) H 01/23/22 05:47 Calcium 10.2 mg/dL (8.4-10.2) 01/23/22 05:47 Total Bilirubin 1.00 mg/dL (0.1-1.2) 01/23/22 05:47 AST 105 units/L (5-40) H 01/23/22 05:47 ALT 80 units/L (7-56) H 01/23/22 05:47 Alkaline Phosphatase 303 units/L (35-129) H 01/23/22 05:47 Total Protein 8.1 g/dL (6.3-8.2) 01/23/22 05:47 Albumin 4.0 g/dL (3.9-5) 01/23/22 05:47 Albumin/Globulin Ratio 1.0 % 01/23/22 05:47 Lipase 112 units/L (13-60) H 01/22/22 11:00 Urine Color Su (Yellow) 01/22/22 09:00 Urine Turbidity Slightly cloudy (Clear) 01/22/22 09:00 Urine pH 6.5 (5.0-7.0) 01/22/22 09:00 Ur Specific [place] 1.030 (1.003-1.030) 01/22/22 09:00 Urine Protein >2000 mg dl mg/dL (Negative) 01/22/22 09:00 Urine Glucose (UA) Negative mg/dL (Negative) 01/22/22 09:00 Urine Ketones Trace mg/dL (Negative) 01/22/22 09:00 Urine Blood Moderate (Negative) A 01/22/22 09:00 Urine Nitrite Negative (Negative) 01/22/22 09:00 Ur Reducing Substances Not Reportable 01/22/22 09:00 Urine Bilirubin Negative (Negative) 01/22/22 09:00 Urine Ictotest Not Reportable 01/22/22 09:00 Urine Urobilinogen Small mg/dL (<2.0) 01/22/22 09:00 Ur Leukocyte Esterase Negative (Negative) 01/22/22 09:00 Urine WBC (Auto) 1.0 /HPF (0.0-6.0) 01/22/22 09:00 Urine RBC (Auto) 32.0 /HPF (0.0-6.0) 01/22/22 09:00 U Epithel Cells (Auto) 2.0 /HPF (0-13.0) 01/22/22 09:00 Granular Casts 32 /LPF 01/22/22 09:00 Urine Mucus Few /HPF 01/22/22 09:00 Salicylates < 0.3 mg/dL (2.8-20.0) L 01/22/22 09:02 Urine Opiates Screen Negative 01/22/22 09:00 Urine Methadone Screen Negative 01/22/22 09:00 Acetaminophen 5.0 ug/mL (10.0-30.0) L 01/22/22 09:02 Ur Barbiturates Screen Negative 01/22/22 09:00 Ur Phencyclidine Scrn Negative 01/22/22 09:00 Ur Amphetamines Screen Negative 01/22/22 09:00 U Benzodiazepines Scrn Negative 01/22/22 09:00 Urine Cocaine Screen Negative 01/22/22 09:00 U Marijuana (THC) Screen Negative 01/22/22 09:00 Drugs of Abuse Note Disclamer 01/22/22 09:00 Plasma/Serum Alcohol 0.02 % (0-0.07) 01/22/22 09:02 Hepatitis A IgM Ab Non-reactive (NonReactive) 01/23/22 05:47 Hep Bs Antigen Non-reactive (Negative) 01/23/22 05:47 Hep B Core IgM Ab Non-reactive (NonReactive) 01/23/22 05:47 Hepatitis C Antibody Non-reactive (NonReactive) 01/23/22 05:47 Ipke/IV: Voiding Method Toilet Active Medications - Current Medications Current Medications: Generic Name Dose Route Start Last Admin Trade Name Freq PRN Reason Stop Dose Admin Acetaminophen 650 mg 01/22/22 16:00 Acetaminophen 325 Mg Tab PO Q4H PRN Pain MILD(1-3)/Fever >100.5/GAMBINO Heparin Sodium (Porcine) 5,000 unit 01/22/22 22:00 01/23/22 11:04 Heparin 5,000 Unit/1 Ml Vial SUB-Q 5,000 unit Q12HR MICHAEL Administration Hydralazine HCl 10 mg 01/22/22 21:03 01/22/22 22:15 Hydralazine 20 Mg/1 Ml Inj IV 10 mg Q3HR PRN Administration Hypertension Sodium Chloride 1,000 mls @ 100 mls/hr 01/23/22 12:45 Nacl 0.9% 1000 Ml IV DIRECT MICHAEL Lorazepam 2 mg 01/22/22 11:30 01/23/22 11:06 Lorazepam 2 Mg/Ml Vial IV 2 mg Q4H PRN Administration CIWA-Ar 8-15 Morphine Sulfate 2 mg 01/22/22 16:00 Morphine 2 Mg/1 Ml Inj IV Q4H PRN Pain, Moderate (4-6) Ondansetron HCl 4 mg 01/22/22 16:00 Ondansetron 4 Mg/2 Ml Inj IV Q8H PRN Nausea And Vomiting Sodium Chloride 10 ml 01/22/22 22:00 01/23/22 11:04 Sodium Chloride 0.9% 10 Ml Flush Syringe IV 10 ml BID MICHAEL Administration Sodium Chloride 10 ml 01/22/22 16:00 01/23/22 00:12 Sodium Chloride 0.9% 10 Ml Flush Syringe IV 10 ml PRN PRN Administration LINE FLUSH
[2022-01-23] MEDS ORDERED: SODIUM CHLORIDE 0.9% 1000 ML 1,000 ML IV SCH (12:45)
[2022-01-24 00:01] VITALS: BP 136/78
[2022-01-24] MEDS: LORazepam 2 MG/ML VIAL IV PRN (00:06)
--- NOTE | 2022-01-24 09:26 | Discharge Summary ---
Providers - Providers Date of Admission: 01/22/22 15:28 Date of discharge: 01/24/22 Attending physician: LAZARO LEE MD Primary care physician: JAVIER ZARATE MD Hospitalization Reason for admission: alcohol withdrawal, alcoholic hepatitis Condition: Serious Hospital course: Patient is a 56-year-old male with history of alcohol dependence, hypertension and HIV who presented with withdrawal symptoms. He was evaluated by psychiatry. He was started on CIWA protocol and a librium taper. Once patient was stable, he was discharged with plans to report to an [facility] Crisis [facility]. Disposition: 01 HOME / SELF CARE / HOMELESS Final Discharge Diagnosis (Prints w/discharge instructions): Alcohol withdrawal. Alcohol dependence. Alcoholic hepatitis. Hypertension. HIV. Hyperlipidemia. Seizure disorder Time spent for discharge: 40 minutes Core Measure Documentation - Palliative Care Palliative Care/ Comfort Measures: Not Applicable - Core Measures Any of the following diagnoses?: none Exam - Physical Exam Narrative exam: GENERAL: Well-developed well-nourished. Sitting on the side of the bed in no acute distress. HEENT: Normocephalic. Atraumatic. NECK: Supple. CHEST/LUNGS: CTAB on room air HEART/CARDIOVASCULAR: RRR. No murmur, rubs or gallops appreciated. ABDOMEN: +BS. NT/ND. NEURO: No focal motor deficit. Follows all commands and is ambulatory. Slight tremor on hand extension. MUSCULOSKELETAL: No joint effusion EXTREMITIES: No cyanosis, clubbing or edema. PSYCH: Cooperative. - Constitutional Vitals: Temp Pulse Resp BP Pulse Ox 98.7 F 104 H 18 136/78 100 01/23/22 21:27 01/23/22 21:27 01/23/22 21:27 01/23/22 21:27 01/24/22 00:00 Plan Care Plan Goals: Please refrain from alcohol use. It is overall detrimental to your health and it has already interfered with you taking your medications to care for yourself. You have been prescribed librium to help with your alcohol withdrawal symptoms. As we have discussed you are not to take this medication with alcohol. Make sure to ask for resources to help you be successful in during your journey to sobriety at the Crisis center. Follow up with: PRIMARY CAREMD [Primary Care Provider] - 3-5 Days Prescriptions: Folic Acid [Folvite] 1 mg PO QDAY #30 tablet chlordiazePOXIDE [Librium] 10 mg PO QDAY 4 Days #4 capsule Thiamine [Vitamin B-1] 100 mg PO QDAY #30 tablet
[2022-01-24] MEDS: HEPARIN 5,000 UNIT/1 ML VIAL SUB-Q SCH (10:01)
== END 2022-01-24 15:42 | disposition home or self-care (01) | DRG 433 ==
LOC: ED 06:50 → 3A 15:28
PROVIDERS: ADMIT Internal Medicine; ATTEND Student in an Organized Health Care Education/Training Program
DX: K70.10 Alcoholic hepatitis without ascites (principal); F10.239 Alcohol dependence with withdrawal, unspecified; G40.909 Epilepsy, unspecified, not intractable, without status epilepticus; I10 Essential (primary) hypertension; Z21 Asymptomatic human immunodeficiency virus [HIV] infection status; Z93.0 Tracheostomy status; F17.200 Nicotine dependence, unspecified, uncomplicated; J45.909 Unspecified asthma, uncomplicated; Y90.9 Presence of alcohol in blood, level not specified; I25.10 Atherosclerotic heart disease of native coronary artery without angina pectoris; Z79.82 Long term (current) use of aspirin; E78.2 Mixed hyperlipidemia
CPT/HCPCS: 36415; 80053; 80074; 80307; 80320; 81001; 83690; 85007; 85025; 96374; 99285; G0378; J3490; G0480; J0360; J1644; J2060; J3411; J7030

== ENCOUNTER 2022-01-26 04:06 | Emergency (ER) | payer MEDICARE ==
--- NOTE | 2022-01-26 04:54 | Cat Scan Report ---
CT HEAD WITHOUT CONTRAST INDICATION / CLINICAL INFORMATION: FALL. TECHNIQUE: All CT scans at this location are performed using CT dose reduction for ALARA by means of automated exposure control. COMPARISON: 10/26/2020 FINDINGS: CEREBRAL/CEREBELLAR PARENCHYMA: Stable mild generalized atrophy and mild chronic microangiopathy. No CT evidence for an acute or subacute territorial infarct. HEMORRHAGE: No acute intra-axial hemorrhage or extra-axial fluid collection. MASS: No mass or mass effect. VENTRICULAR SYSTEM: Normal in size and morphology for the patient's age. ORBITS: No acute process. SOFT TISSUES/SKULL: Left supraorbital scalp contusion and hematoma without underlying skull fracture. PARANASAL SINUSES/MASTOID AIR CELLS: Chronic right maxillary sinusitis with complete mucosal opacific ation. Milder right ethmoid air cell mucosal thickening. Otherwise clear. IMPRESSION: 1. No acute intracranial process. 2. Left supraorbital scalp contusion and hematoma without underlying skull fracture. Signer Name: Franki Leon MD Signed: 01/26/2022 4:50 AM Workstation Name: [email or web address]
--- NOTE | 2022-01-26 04:56 | Cat Scan Report ---
CT CERVICAL SPINE WITHOUT CONTRAST INDICATION / CLINICAL INFORMATION: FALL. TECHNIQUE: Axial CT images were obtained through the cervical spine. Sagittal and coronal reformatted images were produced. All CT scans at this location are performed using CT dose reduction for ALARA by means of automated exposure control. COMPARISON: None available. FINDINGS: VERTEBRAE/ALIGNMENT: Normal vertebral body height and alignment without acute fracture or posttraumat ic subluxation. CRANIOCERVICAL JUNCTION:No significant abnormality. DISC SPACES/FACETS: No significant disc height loss or other degenerative spondylosis. SPINAL CANAL: No evidence for significant spinal stenosis within limitations of noncontrast CT techni que. PARASPINAL SOFT TISSUES: No significant abnormality. LUNG APICES/ADDITIONAL FINDINGS: Mild biapical paraseptal and centrilobular emphysema. IMPRESSION: 1. No fracture or other acute cervical spine process. Signer Name: Franki Leon MD Signed: 01/26/2022 4:52 AM Workstation Name: [email or web address]
[2022-01-26 05:28] LABS: Basophils % (Auto) 0.9 % (0.0-1.8); Eosinophils % (Auto) 0.7 % (0.0-4.3); Hematocrit 36.8 % (35.5-45.6); Lymphocytes % (Auto) 22.1 % (13.4-35.0); Mean Corpuscular HGB Conc 33 % (32-34); Mean Corpuscular Volume 78 fl (84-94); Monocytes # (Auto) 0.5 K/mm3 (0.0-0.8); Monocytes % (Auto) 11.9 % (0.0-7.3); Red Blood Count 4.74 M/mm3 (3.65-5.03)
[2022-01-26 05:32] LABS: Platelet Count 74 K/mm3 (140-440); Red Cell Distribution Width 21.5 % (13.2-15.2)
[2022-01-26 05:36] LABS: INR 0.86 (0.87-1.13); Partial Thromboplastin Time 24.2 Sec. (24.2-36.6)
[2022-01-26 05:45] LABS: Bilirubin,Urine NEG (Negative); Blood,Urine SM (Negative); Color,Urine Yellow (Yellow); Mucus,Urine FEW /HPF; Urobilinogen,Urine < 2 mg/dL (<2.0); WBC,Urine < 1.0 /HPF (0.0-6.0)
[2022-01-26 05:46] LABS: Alanine Aminotransferase 77 units/L (7-56); Albumin 3.8 g/dL (3.9-5); BUN/Creatinine Ratio 12; Blood Urea Nitrogen 12 mg/dL (9-20); Calcium 9.9 mg/dL (8.4-10.2); Hemolysis Index 10
[2022-01-26 05:50] LABS: Amphetamine Screen,Urine Negative; Cannabinoid Screen,Urine Negative; Cocaine Screen,Urine Negative; Methadone Screen,Urine Negative; Opiate Screen,Urine Negative
[2022-01-26 06:06] LABS: Benzodiazepines Screen,Urine Positive
[2022-01-26] MEDS ORDERED: LORazepam 2 MG/ML VIAL IV ONE (06:31)
[2022-01-26] MEDS ORDERED: levETIRAcetam 1000 MG/NS 0.75% 1,000 MG/100 ML BAG IV ONE (06:31)
[2022-01-26] MEDS ORDERED: ACETAMINOPHEN 325 MG TAB PO ONE (06:31)
[2022-01-26] MEDS ORDERED: METOCLOPRAMIDE 10 MG/2 ML INJ IV ONE (06:31)
--- NOTE | 2022-01-26 06:34 | Emergency Department Report ---
ED General Adult HPI - General Chief complaint: Seizure Stated complaint: I think I had a seizure Time Seen by Provider: 01/26/22 06:23 Source: patient, EMS ( EMS documentation not available at time of chart dictation ), RN notes reviewed Mode of arrival: Stretcher Limitations: Other (Patient cannot recall what happened) - History of Present Illness Initial comments: This is a 56-year-old gentleman who presents to the department today with a complaint of possibly having had a seizure, and left periorbital pain. The patient does not recall the specific events that led to his having had a seizure. He has a mild headache. There is no neck pain, chest pain, abdominal pain, shortness of breath, nausea, vomiting or diarrhea. He is intermittently compliant with medications. As per review of her recent hospitalization, he was not administered aspirin or Plavix. He had a cardiac catheterization with deployment of a drug-eluting stent performed at this hospital, in 2013. Patient cannot recall if he had a cardiac catheterization since then. He complains of mild left-sided headache and periorbital pain and swelling. There is no homicidality or suicidality. There is no mention of irritative or obstructive urinary symptoms -: Sudden Location: head, face Consistency: constant Improves with: rest Worsens with: movement - Related Data Home Medications Medication Instructions Recorded Confirmed Last Taken Emtricitabin/Tenofovir [TRUVADA 1 tab PO QDAY 10/01/13 02/06/20 02/09/18 09:00 200-300 mg] Previous Rx's Medication Instructions Recorded Last Taken Type Aspirin 325 mg PO QDAY #30 tablet 08/20/16 02/05/18 09:00 Rx Clopidogrel [Plavix] 75 mg PO QDAY #30 tablet 08/20/16 02/10/18 09:00 Rx Lopinavir/Ritonavir (Nf) [Kaletra 1 each PO BID #60 tablet 08/20/16 02/09/18 09:00 Rx 200-50 mg (Nf)] Metoprolol [Lopressor TAB] 12.5 mg PO BID #60 tablet 08/20/16 02/05/18 09:00 Rx Mirtazapine [Remeron] 45 mg PO QHS #30 tablet 08/20/16 02/05/18 09:00 Rx Pravastatin Sodium [Pravastatin] 10 mg PO QHS #30 tablet 08/20/16 02/05/18 09:00 Rx Famotidine [Pepcid] 20 mg PO BID #30 tablet 03/08/20 Unknown Rx Melatonin [Melatonin 5MG TAB] 5 mg PO QHS #30 tablet 03/08/20 Unknown Rx NIFEdipine XL [Procardia Xl] 30 mg PO Q12HR #60 tablet 03/08/20 Unknown Rx OLANzapine [ZyPREXA] 5 mg PO QHS #30 tablet 03/08/20 Unknown Rx [place]-3 Fatty Acids/Fish Oil [Fish 2,000 mg PO BID #30 capsule 03/08/20 Unknown Rx Oil] levETIRAcetam [Keppra TAB] 500 mg PO BID #60 tablet 09/29/20 Unknown Rx Folic Acid [Folvite] 1 mg PO QDAY #30 tablet 01/24/22 Unknown Rx Thiamine [Vitamin B-1] 100 mg PO QDAY #30 tablet 01/24/22 Unknown Rx chlordiazePOXIDE [Librium] 10 mg PO QDAY 4 Days #4 capsule 01/24/22 Unknown Rx Aspirin [Aspirin BABY CHEW TAB] 81 mg PO QDAY #30 tab.chew 01/26/22 Unknown Rx Metoclopramide [Reglan] 10 mg PO QID PRN #30 tablet 01/26/22 Unknown Rx Multivitamin with Folic Acid [Cvs 400 mcg PO QDAY #30 tablet 01/26/22 Unknown Rx One Daily Essential Tablet] chlordiazePOXIDE [Librium] 25 mg PO Q6H PRN #25 capsule 01/26/22 Unknown Rx levETIRAcetam [Keppra TAB] 500 mg PO BID #60 tablet 01/26/22 Unknown Rx Allergies Allergy/AdvReac Type Severity Reaction Status Date / Time sulfamethoxazole AdvReac Swelling Verified 12/28/21 11:39 [From Bactrim] trimethoprim [From Bactrim] AdvReac Swelling Verified 12/28/21 11:39 ED Review of Systems ROS: Stated complaint: SEIZURE Other details as noted in HPI Constitutional: denies: fever Eyes: other (Periorbital pain and swelling) Respiratory: denies: cough Cardiovascular: denies: chest pain Musculoskeletal: arthralgia, myalgia Neurological: headache Psychiatric: denies: homicidal thoughts, suicidal thoughts ED Past Medical Hx - Past Medical History Previous Medical History?: Yes Hx Hypertension: Yes Hx Heart Attack/AMI: No Hx Congestive Heart Failure: No Hx Diabetes: No Hx Asthma: Yes Hx COPD: No Hx Tuberculosis: Yes Hx HIV: Yes Additional medical history: 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 - Surgical History Past Surgical History?: Yes Hx Coronary Stent: Yes Additional Surgical History: tracheostomy- secondary to "throat infection/couldn't breathe" - Social History Smoking Status: Current Every Day Smoker Substance Use Type: Alcohol - Medications Home Medications: Home Medications Medication Instructions Recorded Confirmed Last Taken Type Emtricitabin/Tenofovir [TRUVADA 1 tab PO QDAY 10/01/13 02/06/20 02/09/18 09:00 History 200-300 mg] Aspirin 325 mg PO QDAY #30 tablet 08/20/16 02/06/20 02/05/18 09:00 Rx Clopidogrel [Plavix] 75 mg PO QDAY #30 tablet 08/20/16 02/06/20 02/10/18 09:00 Rx Lopinavir/Ritonavir (Nf) [Kaletra 1 each PO BID #60 tablet 08/20/16 02/06/20 02/09/18 09:00 Rx 200-50 mg (Nf)] Metoprolol [Lopressor TAB] 12.5 mg PO BID #60 tablet 08/20/16 02/06/20 02/05/18 09:00 Rx Mirtazapine [Remeron] 45 mg PO QHS #30 tablet 08/20/16 02/06/20 02/05/18 09:00 Rx Pravastatin Sodium [Pravastatin] 10 mg PO QHS #30 tablet 08/20/16 02/06/20 02/05/18 09:00 Rx Famotidine [Pepcid] 20 mg PO BID #30 tablet 03/08/20 Unknown Rx Melatonin [Melatonin 5MG TAB] 5 mg PO QHS #30 tablet 03/08/20 Unknown Rx NIFEdipine XL [Procardia Xl] 30 mg PO Q12HR #60 tablet 03/08/20 Unknown Rx OLANzapine [ZyPREXA] 5 mg PO QHS #30 tablet 03/08/20 Unknown Rx [place]-3 Fatty Acids/Fish Oil [Fish 2,000 mg PO BID #30 capsule 03/08/20 Unknown Rx Oil] levETIRAcetam [Keppra TAB] 500 mg PO BID #60 tablet 09/29/20 Unknown Rx Folic Acid [Folvite] 1 mg PO QDAY #30 tablet 01/24/22 Unknown Rx Thiamine [Vitamin B-1] 100 mg PO QDAY #30 tablet 01/24/22 Unknown Rx chlordiazePOXIDE [Librium] 10 mg PO QDAY 4 Days #4 capsule 01/24/22 Unknown Rx Aspirin [Aspirin BABY CHEW TAB] 81 mg PO QDAY #30 tab.chew 01/26/22 Unknown Rx Metoclopramide [Reglan] 10 mg PO QID PRN #30 tablet 01/26/22 Unknown Rx Multivitamin with Folic Acid [Cvs 400 mcg PO QDAY #30 tablet 01/26/22 Unknown Rx One Daily Essential Tablet] chlordiazePOXIDE [Librium] 25 mg PO Q6H PRN #25 capsule 01/26/22 Unknown Rx levETIRAcetam [Keppra TAB] 500 mg PO BID #60 tablet 01/26/22 Unknown Rx ED Physical Exam - General Limitations: Other (Patient is awake and alert and follows commands. The patient is forgetful) General appearance: alert, in no apparent distress - Head Head exam: Present: normocephalic, other (There is left periorbital swelling and ecchymosis) - Eye Eye exam: Present: PERRL, EOMI, periorbital swelling, periorbital tenderness. Absent: conjunctival injection, nystagmus - ENT ENT exam: Present: normal exam, normal orophraynx, mucous membranes moist, normal external ear exam - Neck Neck exam: Present: normal inspection, full ROM. Absent: tenderness, meningismus - Respiratory Respiratory exam: Present: normal lung sounds bilaterally. Absent: respiratory distress, wheezes, rales, rhonchi, stridor, decreased breath sounds - Cardiovascular Cardiovascular Exam: Present: regular rate, tachycardia, normal heart sounds. Absent: bradycardia, irregular rhythm, systolic murmur, diastolic murmur, rubs, gallop - GI/Abdominal GI/Abdominal exam: Present: soft. Absent: distended, tenderness, guarding, rebound, rigid, pulsatile mass - Rectal Rectal exam: Present: deferred - Extremities Exam Extremities exam: Present: normal inspection, full ROM, other (2+ pulses noted in the bilateral upper and lower extremities. There is no palpable cord. negative Homans sign. Muscular compartments are soft. The pelvis is stable.). Absent: pedal edema, calf tenderness - Back Exam Back exam: Present: normal inspection, full ROM. Absent: tenderness, CVA tenderness (R), CVA tenderness (L), paraspinal tenderness, vertebral tenderness - Neurological Exam Neurological exam: Present: alert, other (There is no facial droop. The tongue is midline. EOMI. 5-5 strength in 4 extremities. Sensation is intact to light touch in 4 extremities) - Psychiatric Psychiatric exam: Present: flat affect. Absent: homicidal ideation, suicidal ideation - Skin Skin exam: Present: warm, dry, intact, ecchymosis. Absent: rash ED Course Vital Signs 01/26/22 01/26/22 01/26/22 04:13 04:50 05:01 Temperature 98.7 F Pulse Rate 110 H 90 93 H Respiratory 18 16 20 Rate Blood Pressure 164/96 O2 Sat by Pulse 99 98 98 Oximetry 01/26/22 01/26/22 01/26/22 05:15 05:31 05:45 Temperature Pulse Rate 99 H 94 H 91 H Respiratory 15 13 Rate Blood Pressure 183/107 183/107 O2 Sat by Pulse 98 98 99 Oximetry 01/26/22 01/26/22 01/26/22 06:01 06:15 06:31 Temperature Pulse Rate 98 H 92 H Respiratory 16 25 H Rate Blood Pressure 180/99 180/99 171/102 O2 Sat by Pulse 98 100 100 Oximetry 01/26/22 01/26/22 01/26/22 06:45 07:01 07:15 Temperature Pulse Rate 88 114 H 91 H Respiratory 14 17 15 Rate Blood Pressure 171/102 187/95 187/95 O2 Sat by Pulse 100 100 99 Oximetry 01/26/22 01/26/22 07:43 07:46 Temperature Pulse Rate 96 H 88 Respiratory 16 15 Rate Blood Pressure O2 Sat by Pulse 98 98 Oximetry - Reevaluation(s) Reevaluation #1: 01/26/22 10:50 Differential diagnosis, include but not limited to: Closed head injury, cervical spine injury, migraine headache, tension headache, cluster headache, posttraumatic headache, alcohol withdrawal seizure, alcohol dependence, chronic thrombocytopenia Assessment and plan 56-year-old gentleman with chronic transaminitis, chronic thrombocytopenia, with seizure at his facility, with resulting closed head injury. Patient is awake and alert to name, follows commands, and is protecting his airway. He is moving 4 extremities spontaneously. He has a left periorbital ecchymosis, without evidence of entrapment. He has not had any seizures in the many hours that he has been here in this emergency room. His thrombocytopenia and chronic transaminitis are essentially at their baseline. He may continue aspirin therapy. No need for Plavix at this time. Contacted cardiology on-call, FELIPE Green Discussed the patient's history, physical, laboratory studies radiology studies, clinical impression. The cardiology team also recommend that aspirin may be continued. Rest, ice, compression, elevation, avoidance of heavy lifting, should not drive or operate motor vehicles for the next 6 months. We will discharged with Keppra, aspirin, Reglan, Librium, and multivitamin. Discussed all findings with patient and family. All questions answered 01/26/22 10:50 ED Medical Decision Making - Lab Data Result diagrams: 01/26/22 05:00 01/26/22 05:00 Vital Signs 01/26/22 01/26/22 01/26/22 04:13 04:50 05:01 Temperature 98.7 F Pulse Rate 110 H 90 93 H Respiratory 18 16 20 Rate Blood Pressure 164/96 O2 Sat by Pulse 99 98 98 Oximetry 01/26/22 01/26/22 01/26/22 05:15 05:31 05:45 Temperature Pulse Rate 99 H 94 H 91 H Respiratory 15 13 Rate Blood Pressure 183/107 183/107 O2 Sat by Pulse 98 98 99 Oximetry 01/26/22 06:01 Temperature Pulse Rate 98 H Respiratory 16 Rate Blood Pressure 180/99 O2 Sat by Pulse 98 Oximetry Lab Results 01/26/22 01/26/22 01/26/22 Range/Units 05:00 05:00 05:00 WBC 4.4 L (4.5-11.0) K/mm3 RBC 4.74 (3.65-5.03) M/mm3 Hgb 12.0 (11.8-15.2) gm/dl Hct 36.8 D (35.5-45.6) % MCV 78 L (84-94) fl MCH 25 L (28-32) pg MCHC 33 (32-34) % RDW 21.5 H (13.2-15.2) % Plt Count 74 L (140-440) K/mm3 Lymph % (Auto) 22.1 (13.4-35.0) % [place] % (Auto) 11.9 H (0.0-7.3) % Eos % (Auto) 0.7 (0.0-4.3) % Baso % (Auto) 0.9 (0.0-1.8) % Lymph # (Auto) 1.0 L (1.2-5.4) K/mm3 [place] # (Auto) 0.5 (0.0-0.8) K/mm3 Eos # (Auto) 0.0 (0.0-0.4) K/mm3 Baso # (Auto) 0.0 (0.0-0.1) K/mm3 Seg Neutrophils % 64.4 (40.0-70.0) % Seg Neutrophils # 2.8 (1.8-7.7) K/mm3 PT 12.9 (12.2-14.9) Sec. INR 0.86 L (0.87-1.13) APTT 24.2 (24.2-36.6) Sec. Sodium 136 L (137-145) mmol/L Potassium 3.5 L (3.6-5.0) mmol/L Chloride 104.9 (98-107) mmol/L Carbon Dioxide 21 L (22-30) mmol/L Anion Gap 14 mmol/L BUN 12 (9-20) mg/dL Creatinine 1.0 (0.8-1.3) mg/dL Estimated GFR > 60 ml/min BUN/Creatinine Ratio 12 % Glucose 124 H (75-100) mg/dL Calcium 9.9 (8.4-10.2) mg/dL Total Bilirubin 0.50 (0.1-1.2) mg/dL AST 73 H (5-40) units/L ALT 77 H (7-56) units/L Alkaline Phosphatase 202 H (35-129) units/L Total Protein 7.2 (6.3-8.2) g/dL Albumin 3.8 L (3.9-5) g/dL Albumin/Globulin Ratio 1.1 % Urine Color (Yellow) Urine Turbidity (Clear) Urine pH (5.0-7.0) Ur Specific [place] (1.003-1.030) Urine Protein (Negative) mg/dL Urine Glucose (UA) (Negative) mg/dL Urine Ketones (Negative) mg/dL Urine Blood (Negative) Urine Nitrite (Negative) Urine Bilirubin (Negative) Urine Urobilinogen (<2.0) mg/dL Ur Leukocyte Esterase (Negative) Urine WBC (Auto) (0.0-6.0) /HPF Urine RBC (Auto) (0.0-6.0) /HPF Urine Mucus /HPF Urine Opiates Screen Urine Methadone Screen Ur Barbiturates Screen Ur Phencyclidine Scrn Ur Amphetamines Screen U Benzodiazepines Scrn Urine Cocaine Screen U Marijuana (THC) Screen Drugs of Abuse Note 01/26/22 01/26/22 Range/Units 05:28 05:28 WBC (4.5-11.0) K/mm3 RBC (3.65-5.03) M/mm3 Hgb (11.8-15.2) gm/dl Hct (35.5-45.6) % MCV (84-94) fl MCH (28-32) pg MCHC (32-34) % RDW (13.2-15.2) % Plt Count (140-440) K/mm3 Lymph % (Auto) (13.4-35.0) % [place] % (Auto) (0.0-7.3) % Eos % (Auto) (0.0-4.3) % Baso % (Auto) (0.0-1.8) % Lymph # (Auto) (1.2-5.4) K/mm3 [place] # (Auto) (0.0-0.8) K/mm3 Eos # (Auto) (0.0-0.4) K/mm3 Baso # (Auto) (0.0-0.1) K/mm3 Seg Neutrophils % (40.0-70.0) % Seg Neutrophils # (1.8-7.7) K/mm3 PT (12.2-14.9) Sec. INR (0.87-1.13) APTT (24.2-36.6) Sec. Sodium (137-145) mmol/L Potassium (3.6-5.0) mmol/L Chloride (98-107) mmol/L Carbon Dioxide (22-30) mmol/L Anion Gap mmol/L BUN (9-20) mg/dL Creatinine (0.8-1.3) mg/dL Estimated GFR ml/min BUN/Creatinine Ratio % Glucose (75-100) mg/dL Calcium (8.4-10.2) mg/dL Total Bilirubin (0.1-1.2) mg/dL AST (5-40) units/L ALT (7-56) units/L Alkaline Phosphatase (35-129) units/L Total Protein (6.3-8.2) g/dL Albumin (3.9-5) g/dL Albumin/Globulin Ratio % Urine Color Yellow (Yellow) Urine Turbidity Clear (Clear) Urine pH 6.0 (5.0-7.0) Ur Specific [place] 1.013 (1.003-1.030) Urine Protein 100 mg/dl (Negative) mg/dL Urine Glucose (UA) 50 (Negative) mg/dL Urine Ketones Neg (Negative) mg/dL Urine Blood Sm (Negative) Urine Nitrite Neg (Negative) Urine Bilirubin Neg (Negative) Urine Urobilinogen < 2 (<2.0) mg/dL Ur Leukocyte Esterase Neg (Negative) Urine WBC (Auto) < 1.0 (0.0-6.0) /HPF Urine RBC (Auto) 1.0 (0.0-6.0) /HPF Urine Mucus Few /HPF Urine Opiates Screen Negative Urine Methadone Screen Negative Ur Barbiturates Screen Negative Ur Phencyclidine Scrn Negative Ur Amphetamines Screen Negative U Benzodiazepines Scrn Positive Urine Cocaine Screen Negative U Marijuana (THC) Screen Negative Drugs of Abuse Note Disclamer - EKG Data -: EKG Interpreted by Nc EKG shows normal: sinus rhythm Rate: normal - EKG Data 01/26/22 08:27 The EKG is interpreted at 06: 40 p.m. Sinus rhythm, with a rate of 89 bpm. Normal axis, normal P wave axis, QTC 4 4 7 ms. There is left ventricular hypertrophy. Premature atrial complex. Poor R wave progression. Denies chest pain. This is not a STEMI. - Radiology Data Radiology results: pending, report reviewed, image reviewed CT CERVICAL SPINE WITHOUT CONTRAST INDICATION / CLINICAL INFORMATION: FALL. TECHNIQUE: Axial CT images were obtained through the cervical spine. Sagittal a nd coronal reformatted images were produced. All CT scans at this location are performed using CT dose reduction for ALARA by means of automated exposure control. COMPARISON: None available. FINDINGS: VERTEBRAE/ALIGNMENT: Normal vertebral body height and alignment without acute fracture or posttraumatic subluxation. CRANIOCERVICAL JUNCTION:No significant abnormality. DISC SPACES/FACETS: No significant disc height loss or other degenerative spondylosis. SPINAL CANAL: No evidence for significant spinal stenosis within limitations of noncontrast CT technique. PARASPINAL SOFT TISSUES: No signi ficant abnormality. LUNG APICES/ADDITIONAL FINDINGS: Mild biapical paraseptal and centrilobular emphysema. IMPRESSION: 1. No fracture or other acute cervical spine process. Signer Name: Franki Leon MD Signed: 01/26/2022 3:52 AM Workstation Name: [employer] CT HEAD WITHOUT CONTRAST INDICATION / CLINICAL INFORMATION: FALL. TECHNIQUE: All CT scans at this location are performed using CT dose reduction for ALARA by means of automated exposure control. COMPARISON: 10/26/2020 FINDINGS: CERE BRAL/CEREBELLAR PARENCHYMA: Stable mild generalized atrophy and mild chronic microangiopathy. No CT evidence for an acute or subacute territorial infarct. HEMORRHAGE: No acute intra-axial hemorrhage or extra-axial fluid collection. MASS: No mass or mass effect. VENTRICULAR SYSTEM: Normal in size and morphology for the patient's age. ORBITS: No acute process. SOFT TISSUES/SKULL: Left supraorbital scalp contusion and hematoma without underlying skull fracture. PARANASAL SINUSES/MASTOID AIR CELLS: Chronic right maxillary sinusitis with complete mucosal opacification. Milder right ethmoid air cell mucosal thickening. Otherwise clear. IMPRESSION: 1. No acute intracranial process. 2. Left supraorbital scalp contusion and hematoma without underlying skull fracture. Signer Name: Franki Leon MD Signed: 01/26/2022 3:50 AM Workstation Name: [employer] Critical care attestation.: If time is entered above; I have spent that time in minutes in the direct care of this critically ill patient, excluding procedure time. ED Disposition Clinical Impression: Thrombocytopenia, Seizure, Closed head injury, Alcohol dependence, Transa minitis Disposition: [address] [place] [address] Is pt being admited?: No Does the pt Need Aspirin: No Condition: Good Additional Instructions: Recommend that patient not drive or operate motor vehicles for the next 6 months, or until cleared to do so by an outpatient primary care doctor or neurologist. Recommend follow-up with an outpatient primary care doctor or neurologist within the next week. Avoid consumption of alcohol, tobacco, smoke products, and recreational drugs. Please continue current outpatient medications. Alternate ice packs and heat packs as needed for physical pain. Avoid consumption of Motrin, ibuprofen, Naprosyn, Aleve. Please follow-up with an outpatient mental health specialist within the next week. Please follow-up with a balance sheet analyst within the next 2 weeks. Avoid consumption of alcohol, tobacco, smoke products and recreational drugs. Please return to the emergency room right away with new pain, worsened pain, migration of pain, projectile vomiting, change in mental status, confusion, inability tolerate liquid feeds, new, worsened or different symptoms not present on the initial emergency room evaluation Please return to the emergency room right away with new pain, worsened pain, migration of pain, projectile vomiting, change in mental status, confusion, inability tolerate liquid feeds, new, worsened or different symptoms not present on the initial emergency room evaluation Pain typically gets worse before gets better after mechanical fall. professional and Agency Contacts To help [facility] (19/11) [place] Crisis Line: Suicide Prevention Line: Crisis Text Line: Text ``START to 170338 Emergency: 911 Outpatient COMMUNITY Behavioral Health Resources: [facility]: [facility] [address], [place] [address] [facility] [address] [place] [address] Saturday thru Saturday - 8am - 5pm Call to schedule an assessment for mental health and substance abuse programs [facility] Address: [address] [place] [address] Saturday thru Saturday- 7am-2pm [facility] Address: [address] [place] [address] Saturday thru Saturday: 8:30AM-5PM Referrals: [facility] [Provider Group] - 3-5 Days [facility] [Outside] - 3-5 Days [facility] [Outside] - 3-5 Days Forms: Work/School Release Form(ED)
--- NOTE | 2022-01-26 12:07 | Electrocardiograph Report ---
[facility] Test Date: 2022-01-26 Test Time: 06:38:59 Pat Name: MITZI SALAZAR Department: Room: Gender: M Orthophoto Tech/Draftsman: MINERVA Diaz : 1965 Requested By: LIZBETH MCCALL Order Number: [id number] Reading MD: Eric Cameron Measurements Intervals [place] Rate: 89 P: 71 GA: 165 QRS: 38 QRSD: 95 T: 55 QT: 373 QTc: 447 Interpretive Statements Sinus rhythm Multiple premature complexes, vent & supraven Probable left atrial enlargement Probable anteroseptal infarct, old Compared to ECG 09/28/2020 08:46:17 T-wave abnormality no longer present Myocardial infarct finding still present--subacute deep q waves Electronically Signed On 01-26-2022 9:07:09 PDT by Eric Cameron
[2022-01-26 13:38] VITALS: BP 111/57
== END 2022-01-26 15:29 ==
LOC: ED 04:06
DX: S09.90XA Unspecified injury of head, initial encounter (principal); D69.6 Thrombocytopenia, unspecified; R74.01 Elevation of levels of liver transaminase levels; F10.20 Alcohol dependence, uncomplicated; I10 Essential (primary) hypertension; J45.909 Unspecified asthma, uncomplicated; F17.200 Nicotine dependence, unspecified, uncomplicated; Z90.89 Acquired absence of other organs; Z98.890 Other specified postprocedural states; Z88.2 Allergy status to sulfonamides; Z88.8 Allergy status to other drugs, medicaments and biological substances; Z79.899 Other long term (current) drug therapy; Z79.82 Long term (current) use of aspirin; X58.XXXA Exposure to other specified factors, initial encounter; Y93.89 Activity, other specified; Y92.89 Other specified places as the place of occurrence of the external cause; Y99.8 Other external cause status; Y90.0 Blood alcohol level of less than 20 mg/100 ml
CPT/HCPCS: 36415; 70450; 72125; 80053; 80307; 81001; 85025; 85610; 85730; 93005; 96374; 96375; 99284; J1953; J2060; J2765